=== PATIENT | female | born 1965 | race Caucasian/White ===

== ENCOUNTER 2018-11-27 01:43 | Outpatient (CLI) | payer MEDICAID | END 2018-11-27 01:44 | disposition EMS.NT | LOC: EMS 01:43 | PROVIDERS: ATTEND Surgery | DX: R10.9 Unspecified abdominal pain (principal) ==

== ENCOUNTER 2019-11-15 14:18 | Emergency (ER) | payer MEDICAID ==
[2019-11-15 14:39] VITALS: BP 109/72
--- NOTE | 2019-11-15 15:07 | ED Physician Documentation ---
History of Present Illness - Stated complaint Stated Complaint: FEMALE - Chief complaint Chief Complaint: Abd Pain - History obtained from History obtained from: Patient - History of Present Illness Timing: Other (several months ago) Pain level max: 7 Pain level now: 5 - Additonal information Additional information: states has a known left inguinal hernia. states increasing pain for months. states seen at [place] for the same. No vomiting. no fever. nothing makes it better or worsen. Review of Systems Constitutional: denies: Fever GI: denies: Vomiting, Diarrhea Skin: denies: Rash Musculoskeletal: denies: Neck pain, Back pain Neurologic: denies: Headache PD PAST MEDICAL HISTORY - Past Medical History Past Medical History: No - Past Surgical History Past Surgical History: Yes General: Hiatal hernia repair - Present Medications Home Medications: Ambulatory Orders Medication Instructions Recorded Confirmed Meloxicam [Mobic] 7.5 mg PO BID PRN #20 tablet 11/15/19 - Allergies Allergies/Adverse Reactions: Allergies Allergy/AdvReac Type Severity Reaction Status Date / Time Penicillins Allergy Anaphylaxis Verified 11/15/19 14:39 - Social History Does the pt smoke?: Yes Smoking Status: Current every day smoker Does the pt drink ETOH?: No Does the pt have substance abuse?: No - Immunizations Immunizations: TDAP >10years/unknown PD ED PE NORMAL - Vitals Vital signs reviewed: Yes - General General: Alert and oriented X 3, Well developed/nourished, Other (disheveled) - HEENT HEENT: Moist mucous membranes - Neck Neck: Supple, no meningeal sign - Cardiac Cardiac: RRR, Strong equal pulses - Respiratory Respiratory: No respiratory distress, Clear bilaterally - Abdomen Abdomen: Soft, Non tender, Non distended, Other (no palpable hernias) - Derm Derm: Warm and dry - Extremities Extremities: No edema - Neuro Neuro: Alert and oriented X 3 - Psych Psych: Other (anxious, pressured speech) Results - Vitals Vitals: Vital Signs - 24 hr 11/15/19 14:35 Temperature 36.4 C L Heart Rate 84 Respiratory 16 Rate Blood Pressure 109/72 O2 Saturation 98 Oxygen O2 Source Room air PD MEDICAL DECISION MAKING - ED course Complexity details: considered differential, d/w patient ED course: No palpable hernia. Ultrasound was applied, no visible hernia on ultrasound near the area of pain. Abdomen is soft, nontender nondistended. She is well- appearing, nontoxic. Will prescribe meloxicam for home and have her follow-up with her doctor. Patient counseled regarding signs and symptoms for which I believe and urgent re-evaluation would be necessary. Patient with good understanding of and agreement to plan and is comfortable going home at this time This document was made in part using voice recognition software. While efforts are made to proofread this document, sound alike and grammatical errors may occur. Departure - Departure Disposition: 01 Home, Self Care Clinical Impression: Abdominal pain Qualifiers: Abdominal location: unspecified location Qualified Code(s): R10.9 - Unspecified abdominal pain Condition: Good Instructions: ED Abdominal Pain Unkn Cause Follow-Up: your,doctor in 1 week [Other] Prescriptions: Meloxicam [Mobic] 7.5 mg PO BID PRN #20 tablet PRN Reason: Pain Comments: Follow-up with your doctor for further care. Return if you worsen. Discharge Date/Time: 11/15/19 15:10
== END 2019-11-15 15:10 | disposition home or self-care (01) ==
LOC: ED 14:18
DX: R10.9 Unspecified abdominal pain (principal); F17.200 Nicotine dependence, unspecified, uncomplicated
CPT/HCPCS: 99282; 99284

== ENCOUNTER 2021-10-22 09:56 | Emergency (ER) | payer MEDICAID ==
[2021-10-22] MEDS ORDERED: BUFFERED LIDOCAINE 10 ML SYRINGE SUBQ STA (10:51)
--- NOTE | 2021-10-22 11:51 | ED Physician Documentation ---
History of Present Illness - Stated complaint Stated Complaint: L SIDE ABSCESS - Chief complaint Chief Complaint: Wound - History obtained from History obtained from: Patient - History of Present Illness Timing: How many weeks ago (1) - Additonal information Additional information: 56-year-old female with a history of IV drug abuse has a abscess on her left hip where she has been muscling. She has had this happen to her previously she has some scar area of scar tissue to the area she has quite a good sized red lump that is painful. She is not allergic to anything except for penicillin. Review of Systems Constitutional: denies: Fever Respiratory: denies: Cough GI: denies: Vomiting Skin: denies: Rash Musculoskeletal: reports: Extremity pain. 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 : None HEENT: None Psych: None Musculoskeletal: Chronic back pain Derm: Other drug resistant infections - Past Surgical History Past Surgical History: Yes General: Hiatal hernia repair - Present Medications Home Medications: Ambulatory Orders Medication Instructions Recorded Confirmed HYDROcod/ACETAM 5/325 [[place] 5/325] 1 - 2 tablet PO Q6H PRN #14 tablet 10/22/21 Sulfamethox/Trimeth 800/160 1 tablet PO BID 7 Days #14 tablet 10/22/21 [Bactrim Ds] - Allergies Allergies/Adverse Reactions: Allergies Allergy/AdvReac Type Severity Reaction Status Date / Time Penicillins Allergy Anaphylaxis Verified 10/22/21 10:10 - Social History Does the pt smoke?: Yes Smoking Status: Current every day smoker Does the pt drink ETOH?: No Does the pt have substance abuse?: Yes Substance Use and Type: Marijuana, CBD oil / Products - Immunizations Immunizations are current?: Yes Immunizations: TDAP >10years/unknown - POLST Patient has POLST: No PD ED PE NORMAL - Vitals Vital signs reviewed: Yes (Tachycardic) - General General: Alert and oriented X 3, No acute distress, Well developed/nourished - HEENT HEENT: Atraumatic, PERRL, EOMI - Respiratory Respiratory: No respiratory distress - Derm Derm: Normal color, Warm and dry, No rash - Extremities Extremities: Other (There is a 4 cm x 9 cm mass to the left hip that is erythematous raised about 2-1/2 cm off of the skin and fluctuance in the center. The area is tender there is surrounding erythema there is no lymphangitic streaking and no progression of the erythema past the margins of the mass.) - Neuro Neuro: Alert and oriented X 3, bar staff 2-12 intact, No motor deficit, No sensory deficit, Normal speech Eye Opening: Spontaneous Motor: Obeys Commands Verbal: Oriented GCS Score: 15 - Psych Psych: Normal mood, Normal affect Results - Vitals Vitals: Vital Signs - 24 hr 10/22/21 10:09 Temperature 36.6 C Heart Rate 101 H Respiratory 16 Rate Blood Pressure 113/73 O2 Saturation 100 Oxygen O2 Source Room air Procedures - Abscess I&D (location) left hip Preparation: Chlorhexadine, Lidocaine 1% Incision: Incised with scalpel, Purulent drainage, Loculations broken, Irrigated, Packed, Culture obtained Other: Pt tolerated well, Dressing applied, Antibiotic prescribed PD MEDICAL DECISION MAKING - ED course Complexity details: considered differential, d/w patient ED course: 56-year-old female with a large abscess to the left lateral thigh over the trochanter has the mass incised and drained irrigated and packed with gauze. I have asked patient to remove 2 to 3 cm of gauze daily and to follow-up here in 2 to 3 days for a wound recheck. We were able to obtain a wound culture we will place her on some Septra she had improvement in her pain immediately. Departure - Departure Disposition: 01 Home, Self Care Clinical Impression: Abscess Condition: Stable Instructions: ED Abscess IandD Follow-Up: [facility] [place] [Provider Group] Prescriptions: Sulfamethox/Trimeth 800/160 [Bactrim Ds] 1 tablet PO BID 7 Days #14 tablet HYDROcod/ACETAM 5/325 [[place] 5/325] 1 - 2 tablet PO Q6H PRN #14 tablet PRN Reason: Pain Comments: Jackelyn, today it looks like you have a large abscess and this has been incised and drained there is packing material in the wound. The recommendation is to remove an inch or so of packing daily and to follow-up with us in 2 to 3 days for a wound recheck. Take the antibiotic as prescribed and expect daily improvement. Your prescriptions have been E scribed to [facility] in [place].
[2021-10-22 12:18] VITALS: BP 123/70
== END 2021-10-22 12:18 | disposition home or self-care (01) ==
LOC: ED 09:56
DX: L02.416 Cutaneous abscess of left lower limb (principal); F17.200 Nicotine dependence, unspecified, uncomplicated; Z88.0 Allergy status to penicillin
CPT/HCPCS: 10061; 87070; 87205

== ENCOUNTER 2022-04-30 18:23 | Emergency (ER) | payer MEDICAID ==
[2022-04-30 18:29] VITALS: BP 123/69
[2022-04-30] MEDS ORDERED: HYDROcod/ACET 5/325 Prepack 4 PO STA (18:40)
[2022-04-30] MEDS ORDERED: SULFAMETH/TRIMETH DS 800/160 MG TABLET PO STA (18:40)
--- NOTE | 2022-04-30 18:42 | ED Physician Documentation ---
PD HPI SKIN - Stated complaint Stated Complaint: LEFT HAND WOUND - Chief complaint Chief Complaint: Wound - History obtained from History obtained from: Patient - Additional information Additional information: 56-year-old woman with history of COPD and tobacco abuse, otherwise healthy presents with lesions on the left hand and left foot starting yesterday. She does have a history of MRSA. Lesion on the left foot is especially painful. No fevers. 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 HEENT: None Psych: None Musculoskeletal: Chronic back pain Derm: Other drug resistant infections - Past Surgical History Past Surgical History: Yes General: Hiatal hernia repair - Present Medications Home Medications: Ambulatory Orders Medication Instructions Recorded Confirmed HYDROcod/ACETAM 5/325 [[place] 5/325] 1 - 2 tablet PO Q6H PRN #14 tablet 10/22/21 Sulfamethox/Trimeth 800/160 1 tablet PO BID 7 Days #14 tablet 10/22/21 [Bactrim Ds] HYDROcod/ACETAM 5/325 [[place] 5/325] 1 - 2 tab PO Q6H PRN #10 tablet 04/30/22 Sulfamethox/Trimeth 800/160 1 each PO BID #14 tablet 04/30/22 [Bactrim Ds 800/160] - Allergies Allergies/Adverse Reactions: Allergies Allergy/AdvReac Type Severity Reaction Status Date / Time Penicillins Allergy Anaphylaxis Verified 04/30/22 18:29 - Social History Does the pt smoke?: Yes Smoking Status: Current every day smoker Does the pt drink ETOH?: No Does the pt have substance abuse?: Yes - Immunizations Immunizations are current?: Yes Immunizations: TDAP >10years/unknown - POLST Patient has POLST: No PD ED PE NORMAL - Vitals Vital signs reviewed: Yes - General General: Alert and oriented X 3, No acute distress - Extremities Extremities: Other (On the dorsum of the left hand over the second MCP there is a purulent blister that was cultured and sent for exam with very mild surrounding cellulitis. Full range of motion. There is sort of a denuded impetiginous ulcer over the dorsum of the left second toe with mild surrounding cellulitis as w) - Neuro Neuro: Alert and oriented X 3, Normal speech - Psych Psych: Normal mood, Normal affect Results - Vitals Vitals: Vital Signs - 24 hr 04/30/22 18:27 Temperature 36.7 C Heart Rate 93 Respiratory 16 Rate Blood Pressure 123/69 O2 Saturation 100 Oxygen O2 Source Room air - Labs Labs: Microbiology 04/30/22 18:40 Wound Culture - Preliminary Hand - Left PD MEDICAL DECISION MAKING - ED course ED course: 56-year-old woman presents with what looks like a staph infection on the left hand and left foot. A culture was obtained and she is started on Bactrim given her history of MRSA pending culture. Departure - Departure Disposition: 01 Home, Self Care Clinical Impression: Cellulitis Condition: Good Record reviewed to determine appropriate education?: Yes Instructions: ED Staph Infec Abx Tx Only Prescriptions: Sulfamethox/Trimeth 800/160 [Bactrim Ds 800/160] 1 each PO BID #14 tablet HYDROcod/ACETAM 5/325 [[place] 5/325] 1 - 2 tab PO Q6H PRN #10 tablet PRN Reason: Pain Comments: I sent your prescription electronically to [facility] in [place]. We are performing a wound culture, the results should be done in 48-72 hours. If antibiotic change is necessary we will call you. Return if worse in the meantime, especially if you develop increased pain, fevers, cannot keep down the medication. Otherwise follow-up with your physician in approximately 2-3 days. I am prescribing a short course of narcotic pain medication for you. These are potentially dangerous and addictive medications that should be used carefully. These medications may constipate you. Take an tnsl-tie-jqlqujo stool softener (docusate) twice daily with plenty of water while taking these medications. If you go 24 hours without a bowel movement, take [id number]-iykfgll miralax, per package instructions. Do not drink or drive while taking these medications. If you received narcotic or sedating medications while in the emergency department, do not drive for 24 hours. Store this medication in a safe, secure place and out of reach of children. It is a violation of federal law to give or sell this medication to another person or to use in a manner other than prescribed. The ED will not refill narcotic prescriptions, including prescriptions lost or stolen. To dispose of unwanted medications: 1. [facility] at [address] in [place] has a medication drop box. They accept prescription medications (in pill form) Sunday through Sunday 9:00 a.m. to 5:00 p.m. 2. [facility] accepts prescription medications (in pill form only) for disposal year round. Call for more information. 3. Contact the [facility] for the next [facility] sponsored prescription drug collection event. , [phone], or [phone]; Note that many narcotic pain relievers also contain Tylenol/acetaminophen. Please ensure that your total dose of acetaminophen from all sources does not exceed 3 g (3000 mg) per day. Discharge Date/Time: 04/30/22 18:50
== END 2022-04-30 18:50 | disposition home or self-care (01) ==
LOC: ED 18:23
DX: L03.114 Cellulitis of left upper limb (principal); L03.116 Cellulitis of left lower limb; F17.200 Nicotine dependence, unspecified, uncomplicated
CPT/HCPCS: 87070; 87077; 87205; 99282; 99283; A9270

== ENCOUNTER 2022-06-12 22:37 | Emergency (ER) | payer MEDICAID ==
--- NOTE | 2022-06-12 23:10 | ED Physician Documentation ---
PD HPI LOWER EXT INJURY - Stated complaint Stated Complaint: LEG SORES - Chief complaint Chief Complaint: Wound - History obtained from History obtained from: Patient - History of Present Illness PD HPI LOW EXT INJURY LOCATION: Right, Both Type of injury: Other (unknown) Similar symptoms before: Diagnosis - Additional information Additional information: 56yoF with PMH COPD, previous hx MRSA Presents for 4 days of gradually worsening wounds on her bilateral lower extremity. States this is consistent with MRSA infection for her. States that wounds appeared suddenly 4 days ago and have been progressive since onset. Has not seen a primary care physician for this complaint. Patient is also endorsing 1 day of shortness of breath. Patient has documented hx of COPD but denies that medical history. Current everyday smoker. No recent antibiotics in last 30 days. Denies fevers, chest pain, nausea, vomiting, other complaints at this time. Review of Systems Ten Systems: 10 systems reviewed and negative Cardiac: denies: Chest pain / pressure Respiratory: reports: Dyspnea. denies: Cough, Wheezing Skin: reports: Lesions. 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 HEENT: None Psych: None Musculoskeletal: Chronic back pain Derm: Other drug resistant infections - Past Surgical History Past Surgical History: Yes General: Hiatal hernia repair - Present Medications Home Medications: Ambulatory Orders Medication Instructions Recorded Confirmed HYDROcod/ACETAM 5/325 [[place] 5/325] 1 - 2 tablet PO Q6H PRN #14 tablet 10/22/21 Sulfamethox/Trimeth 800/160 1 tablet PO BID 7 Days #14 tablet 10/22/21 [Bactrim Ds] HYDROcod/ACETAM 5/325 [[place] 5/325] 1 - 2 tab PO Q6H PRN #10 tablet 04/30/22 Sulfamethox/Trimeth 800/160 1 each PO BID #14 tablet 04/30/22 [Bactrim Ds 800/160] Albuterol Sulf [Ventolin Hfa 1 - 2 puffs INH Q4HR PRN #1 gm 06/13/22 Inhaler] Doxycycline Hyclate 100 mg PO BID #14 tab.sr 06/13/22 - Allergies Allergies/Adverse Reactions: Allergies Allergy/AdvReac Type Severity Reaction Status Date / Time Penicillins Allergy Anaphylaxis Verified 06/12/22 22:43 - Social History Does the pt smoke?: Yes Smoking Status: Current every day smoker Does the pt drink ETOH?: No Does the pt have substance abuse?: Yes - Immunizations Immunizations are current?: Yes Immunizations: TDAP >10years/unknown - POLST Patient has POLST: No PD ED PE NORMAL - Vitals Vital signs reviewed: Yes - General General: Alert and oriented X 3, No acute distress, Well developed/nourished, Other (hygiene poor) - HEENT HEENT: Atraumatic, EOMI, Ears normal - Neck Neck: Supple, no meningeal sign, No bony TTP, C-Spine cleared by NEXUS criteria - Cardiac Cardiac: RRR, No gallop, Strong equal pulses - Respiratory Respiratory: No respiratory distress, Clear bilaterally, Other (diminished breath sounds all lung early, speaking complete sentences without difficulty) - Abdomen Abdomen: Soft, Non tender, Non distended - Back Back: No CVA TTP, No spinal TTP - Derm Derm: Normal color, Warm and dry, Other (2x2cm areas of induration on bilateral lateral thighs. No fluctuance, no surrounding erythema) - Extremities Extremities: No tenderness to palpate, Normal ROM s pain, No edema - Neuro Neuro: Alert and oriented X 3, carpenter packing 2-12 intact, No motor deficit, No sensory deficit, Normal speech - Psych Psych: Normal mood, Normal affect PD ED PE EXPANDED - Extremities LORI LE visual: 1 - swelling 2 - swelling Results - Vitals Vitals: Vital Signs - 24 hr 06/12/22 06/13/22 22:43 01:29 Temperature 36.5 C 36.6 C Heart Rate 84 72 Respiratory 18 18 Rate Blood Pressure 132/83 H 122/72 O2 Saturation 99 96 Oxygen O2 Source Room air - Labs Labs: Laboratory Tests 06/12/22 06/12/22 06/12/22 23:27 23:27 23:27 WBC 6.6 RBC 3.82 L Hgb 11.0 L Hct 33.5 L MCV 87.7 MCH 28.8 MCHC 32.8 RDW 13.9 Plt Count 346 MPV 8.7 Neut # (Auto) 4.3 Lymph # (Auto) 1.2 L [place] # (Auto) 0.8 Eos # (Auto) 0.3 Baso # (Auto) 0.0 Absolute Nucleated RBC 0.00 Nucleated RBC % 0.0 Sodium 134 L Potassium 3.7 Chloride 97 L Carbon Dioxide 30 Anion Gap 7.0 BUN 6 Creatinine 0.6 Estimated GFR (MDRD) 103 Glucose 114 H Calcium 9.0 Total Bilirubin 0.3 AST 14 ALT 12 Alkaline Phosphatase 85 Troponin I High Sens 2.8 B-Natriuretic Peptide Total Protein 7.2 Albumin 3.1 L Globulin 4.1 Albumin/Globulin Ratio 0.8 L 06/12/22 23:27 WBC RBC Hgb Hct MCV MCH MCHC RDW Plt Count MPV Neut # (Auto) Lymph # (Auto) [place] # (Auto) Eos # (Auto) Baso # (Auto) Absolute Nucleated RBC Nucleated RBC % Sodium Potassium Chloride Carbon Dioxide Anion Gap BUN Creatinine Estimated GFR (MDRD) Glucose Calcium Total Bilirubin AST ALT Alkaline Phosphatase Troponin I High Sens B-Natriuretic Peptide 84 Total Protein Albumin Globulin Albumin/Globulin Ratio PD MEDICAL DECISION MAKING - ED course Complexity details: reviewed old records, reviewed results, re-evaluated patient, considered differential, d/w patient ED course: 4 days of gradually worsening swelling on lower extremities consistent with patient's previous history of MRSA. No recent antibiotic use. Wounds are indurated, there is no fluctuance to suggest drainable mass. Will obtain chest x-ray and laboratory work given patient's history of shortness of breath. Labs unremarkable, however abnormal finding on patient's chest x-ray not seen on previous. Will obtain CT for assessment since patient states she does not have a primary care physician at this time. CT shows severe emphysema, parenchymal scarring without evidence of pneumonia. Patient given albuterol nebulizer for home use, will discharge patient on doxycycline for presumed MRSA infection. Patient was counseled on the importance of tobacco cessation and following with a primary care physician. Departure - Departure Disposition: 01 Home, Self Care Clinical Impression: Cellulitis Qualifiers: Site of cellulitis: extremity Site of cellulitis of extremity: lower extremity Laterality: unspecified laterality Qualified Code(s): L03.119 - Cellulitis of unspecified part of limb COPD (chronic obstructive pulmonary disease) Qualifiers: COPD type: emphysema Emphysema type: panlobular Qualified Code(s): J43.1 - Panlobular emphysema Emphysema lung Qualifiers: Emphysema type: panlobular Qualified Code(s): J43.1 - Panlobular emphysema Condition: Stable Instructions: Tips Cardiovascular Quit Smoking, Cellulitis Dc, Emphysema Dc, ED Staph Infec Abx Tx Only Prescriptions: Albuterol Sulf [Ventolin Hfa Inhaler] 1 - 2 puffs INH Q4HR PRN #1 gm PRN Reason: Shortness Of Air/Wheezing Doxycycline Hyclate 100 mg PO BID #14 tab.sr Discharge Date/Time: 06/13/22 01:35
[2022-06-12 23:39] LABS: BASOPHILS % (AUTO) 0.5 %; EOSINOPHILS # (AUTO) 0.3 10^3/uL (0.0-0.7); EOSINOPHILS % (AUTO) 4.8 %; HCT - HEMATOCRIT 33.5 % (37.0-47.0); LYMPHOCYTES # (AUTO) 1.2 10^3/uL (1.5-3.5); LYMPHOCYTES % (AUTO) 18.1 %; MEAN CORPUSCULAR HEMOGLOBIN 28.8 pg (27.0-31.0); MEAN CORPUSCULAR HGB CONC 32.8 g/dL (32.0-36.0); MEAN CORPUSCULAR VOLUME 87.7 fL (81.0-99.0); MEAN PLATELET VOLUME 8.7 fL (7.9-10.8); MONOCYTES # (AUTO) 0.8 10^3/uL (0.0-1.0); MONOCYTES % (AUTO) 12.1 %; NEUTROPHILS # (AUTO) 4.3 10^3/uL (1.5-6.6); NEUTROPHILS % (AUTO) 64.3 %; PLT - PLATELET COUNT 346 10^3/uL (130-450); RED BLOOD COUNT 3.82 10^6/uL (4.20-5.40); RED CELL DISTRIBUTION WIDTH 13.9 % (12.0-15.0); WHITE BLOOD COUNT 6.6 x10^3/uL (4.8-10.8)
[2022-06-12 23:48] LABS: ALBUMIN 3.1 g/dL (3.2-5.5); ALBUMIN/GLOBULIN RATIO 0.8 (1.0-2.2); BILIRUBIN,TOTAL 0.3 mg/dL (0.2-1.0); CREATININE 0.6 mg/dL (0.4-1.0); POTASSIUM 3.7 mmol/L (3.5-5.0); TOTAL PROTEIN 7.2 g/dL (6.7-8.2)
--- NOTE | 2022-06-13 00:32 | XRAY Report ---
PROCEDURE: Chest 1 View X-Ray INDICATIONS: Dyspnea x1 day TECHNIQUE: One view of the chest was acquired. COMPARISON: None. FINDINGS: Findings of severe bullous emphysema and COPD. Asymmetric opacity in the medial right lung apex. Norm al heart size. IMPRESSION: Findings of COPD and severe bullous emphysematous change. Asymmetric opacity in the medial right lung apex is suspicious for possible infection or neoplasm versus pleural-parenchymal scarring. Reviewed by: Jorden Truong MD on 06/13/2022 12:30 AM PDT Approved by: Jorden Truong MD on 06/13/2022 12:30 AM PDT Station ID: [id number]
--- NOTE | 2022-06-13 01:14 | CT Report ---
PROCEDURE: CHEST WO INDICATIONS: ABNORMAL R CXR TECHNIQUE: Noncontrast 1mm axial images were acquired from the pulmonary apices to the posterior costophrenic an gles. Axial 5 mm soft tissue kernel reconstructions were performed as well as 8 mm axial MIP and cor onal and sagittal 5 mm reformations. For radiation dose reduction, the following was used: automate d exposure control, adjustment of mA and/or kV according to patient size. COMPARISON: Same day chest radiograph FINDINGS: Medial right apical opacity seen on the previous examination is consistent with pleural-parenchymal s carring. Severe bullous emphysematous changes. No acute or suspicious air space opacity identified. N o pleural effusion or pneumothorax. Normal heart size. No pericardial effusion. Normal caliber thorac ic aorta and main pulmonary trunk. No thoracic lymphadenopathy. No acute finding in the unenhanced up per abdomen. IMPRESSION: Medial right apical airspace opacity seen on prior chest radiograph is consistent with pleural-parenc hymal scarring. Reviewed by: Jorden Truong MD on 06/13/2022 1:12 AM PDT Approved by: Jorden Truong MD on 06/13/2022 1:12 AM PDT Station ID: [id number]
[2022-06-13 01:31] VITALS: BP 122/72
== END 2022-06-13 01:35 | disposition home or self-care (01) ==
LOC: ED 22:37
DX: L03.119 Cellulitis of unspecified part of limb (principal); J43.1 Panlobular emphysema; F17.200 Nicotine dependence, unspecified, uncomplicated
CPT/HCPCS: 36415; 80053; 83880; 84484; 85025; 93005; 99284

== ENCOUNTER 2022-07-18 18:19 | Emergency (ER) | payer MEDICAID ==
[2022-07-18 18:47] VITALS: BP 126/85
[2022-07-18 19:21] LABS: BASOPHILS % (AUTO) 0.3 %; EOSINOPHILS # (AUTO) 0.3 10^3/uL (0.0-0.7); EOSINOPHILS % (AUTO) 4.3 %; HCT - HEMATOCRIT 34.2 % (37.0-47.0); HGB - HEMOGLOBIN 11.7 g/dL (12.0-16.0); LYMPHOCYTES # (AUTO) 1.9 10^3/uL (1.5-3.5); LYMPHOCYTES % (AUTO) 27.8 %; MEAN CORPUSCULAR HEMOGLOBIN 29.2 pg (27.0-31.0); MEAN CORPUSCULAR HGB CONC 34.2 g/dL (32.0-36.0); MEAN CORPUSCULAR VOLUME 85.3 fL (81.0-99.0); MEAN PLATELET VOLUME 8.9 fL (7.9-10.8); MONOCYTES # (AUTO) 0.9 10^3/uL (0.0-1.0); MONOCYTES % (AUTO) 13.4 %; NEUTROPHILS # (AUTO) 3.7 10^3/uL (1.5-6.6); NEUTROPHILS % (AUTO) 54.1 %; PLT - PLATELET COUNT 342 10^3/uL (130-450); RED BLOOD COUNT 4.01 10^6/uL (4.20-5.40); RED CELL DISTRIBUTION WIDTH 13.3 % (12.0-15.0); WHITE BLOOD COUNT 6.9 x10^3/uL (4.8-10.8)
[2022-07-18 19:29] LABS: ALBUMIN 3.4 g/dL (3.2-5.5); ALBUMIN/GLOBULIN RATIO 0.7 (1.0-2.2); BILIRUBIN,TOTAL 0.4 mg/dL (0.2-1.0); CALCIUM 9.1 mg/dL (8.5-10.3); CREATININE 0.6 mg/dL (0.4-1.0); POTASSIUM 3.3 mmol/L (3.5-5.0)
--- NOTE | 2022-07-18 20:03 | XRAY Report ---
PROCEDURE: Chest 1 View X-Ray INDICATIONS: congestion TECHNIQUE: One view of the chest was acquired. COMPARISON: 06/12/2022 FINDINGS: Surgical changes and devices: None. Lungs and pleura: Hyperinflation and chronic interstitial changes with the pulmonary scarring the le ft Mediastinum: Mediastinal contours appear normal. Heart size is normal. Bones and chest wall: No suspicious bony lesions. Overlying soft tissues appear unremarkable. IMPRESSION: No acute findings. Hyperinflation, chronic interstitial changes and scarring, stable from the prior Reviewed by: Oral Mcdonald MD on 07/18/2022 7:02 PM AKLUCY Approved by: Oral Mcdonald MD on 07/18/2022 7:02 PM AKDT Station ID: [id number]
== END 2022-07-18 20:06 | disposition left against medical advice (07) ==
LOC: ED 18:19
DX: Z53.21 Procedure and treatment not carried out due to patient leaving prior to being seen by health care provider (principal)
CPT/HCPCS: 36415; 80053; 85025

== ENCOUNTER 2023-07-04 22:01 | Emergency (ER) | payer MEDICAID ==
[2023-07-04] MEDS ORDERED: HYDROmorphone 1 MG/ML CARPUJECT IM STA (22:20)
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
--- NOTE | 2023-07-04 23:46 | XRAY Report ---
PROCEDURE: Hip w/Pelvis 2-3V LT INDICATIONS: hip inj TECHNIQUE: AP pelvis with lateral view of the left hip acquired. COMPARISON: None. FINDINGS: Bones: No displaced fractures or dislocations. No suspicious bony lesions. Soft tissues: No suspicious soft tissue calcifications or masses. IMPRESSION: 1. No displaced fracture or dislocation. If clinical concern persists, consider further evaluation with CT. Reviewed by: Roman Bartlett MD on 07/04/2023 11:45 PM PDT Approved by: Roman Bartlett MD on 07/04/2023 11:45 PM PDT Station ID: [id number]
[2023-07-05 01:10] VITALS: BP 133/74; O2SAT 94
[2023-07-05] MEDS ORDERED: HYDROcod/ACET 5/325 Prepack 4 PO ONE (02:17)
--- NOTE | 2023-07-05 04:08 | CT Report ---
PROCEDURE: LOWER EXTREMITY WO - LT INDICATIONS: HIP INJ, NEG XR TECHNIQUE: Noncontrast 3-mm axial sections acquired from the distal tibial shaft to the talar dome, with coronal and sagittal reformats. For radiation dose reduction, the following was used: automated exposure c ontrol, adjustment of mA and/or kV according to patient size. COMPARISON: Concurrent x-ray of the left hip. FINDINGS: Image quality: Excellent. Bones: There is a comminuted nondisplaced fracture of the left greater trochanter. No femoral neck f racture. No dislocation. Visualized bony pelvis appears intact. Soft tissues: There is mild particular soft tissue swelling and edema adjacent to the greater trocha nter. No suspicious soft tissue calcifications. The visualized musculature appears preserved. Impression: 1. Comminuted nondisplaced fracture of the left greater trochanter. Reviewed by: Roman Woody MD on 07/05/2023 1:52 AM PDT Approved by: Roman Woody MD on 07/05/2023 1:52 AM PDT Station ID: [id number]
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
== END 2023-07-05 02:25 | disposition home or self-care (01) ==
LOC: ED 22:01
DX: S70.02XA Contusion of left hip, initial encounter (principal); S72.115A Nondisplaced fracture of greater trochanter of left femur, initial encounter for closed fracture; V00.831A Fall from motorized mobility scooter, initial encounter; Y93.I9 Activity, other involving external motion; F17.200 Nicotine dependence, unspecified, uncomplicated
CPT/HCPCS: 73502; 73700; 96372; 99283; 99284; J1170

== ENCOUNTER 2023-07-17 10:02 | Emergency (ER) | payer MEDICAID ==
[2023-07-17] MEDS ORDERED: IPRATROPIUM/ALBUTEROL 3 ML NEB INH STA ×2 (10:42→11:58)
[2023-07-17] MEDS ORDERED: predniSONE 20 MG TABLET PO STA (10:43)
[2023-07-17 11:06] LABS: BASOPHILS % (AUTO) 0.3 %; EOSINOPHILS # (AUTO) 0.1 10^3/uL (0.0-0.7); EOSINOPHILS % (AUTO) 1.3 %; HCT - HEMATOCRIT 45.9 % (37.0-47.0); HGB - HEMOGLOBIN 15.1 g/dL (12.0-16.0); LYMPHOCYTES # (AUTO) 1.2 10^3/uL (1.5-3.5); LYMPHOCYTES % (AUTO) 12.2 %; MEAN CORPUSCULAR HEMOGLOBIN 29.8 pg (27.0-31.0); MEAN CORPUSCULAR HGB CONC 32.9 g/dL (32.0-36.0); MEAN CORPUSCULAR VOLUME 90.5 fL (81.0-99.0); MONOCYTES # (AUTO) 1.3 10^3/uL (0.0-1.0); MONOCYTES % (AUTO) 12.8 %; NEUTROPHILS # (AUTO) 7.2 10^3/uL (1.5-6.6); NEUTROPHILS % (AUTO) 73.1 %; PLT - PLATELET COUNT 339 10^3/uL (130-450); RED BLOOD COUNT 5.07 10^6/uL (4.20-5.40); RED CELL DISTRIBUTION WIDTH 12.7 % (12.0-15.0); WHITE BLOOD COUNT 9.9 x10^3/uL (4.8-10.8)
[2023-07-17 11:19] LABS: B. PARAPERTUSSIS- RESP PCR PAN NOT DETECTED; B. PERTUSSIS- RESP PCR PANEL NOT DETECTED; C. PNEUMONIAE- RESP PCR PANEL NOT DETECTED; CORONAVIRUS 229E-RESP PCR NOT DETECTED; CORONAVIRUS HKU1-RESP PCR NOT DETECTED; CORONAVIRUS NL63-RESP PCR NOT DETECTED; CORONAVIRUS OC43-RESP PCR NOT DETECTED; HUMAN METAPNEUMOVIRUS NOT DETECTED; INFLUENZA A- RESP PCR PANEL NOT DETECTED; INFLUENZA B - RESP PCR PANEL NOT DETECTED; M. PNEUMONIAE- RESP PCR PANEL NOT DETECTED; PARAINFLUENZA VIRUS 1 NOT DETECTED; PARAINFLUENZA VIRUS 2 NOT DETECTED; PARAINFLUENZA VIRUS 3 NOT DETECTED; PARAINFLUENZA VIRUS 4 NOT DETECTED; RHINOVIRUS/ENTEROVIRUS DETECTED; RSV- RESP PCR PANEL NOT DETECTED; SARS-CoV-2 -RESP PCR PANEL NOT DETECTED
[2023-07-17 11:20] LABS: ALBUMIN 4.2 g/dL (3.2-5.5); BILIRUBIN,TOTAL 0.5 mg/dL (0.2-1.0); CREATININE 0.6 mg/dL (0.6-1.3); POTASSIUM 3.8 mmol/L (3.5-4.5); TOTAL PROTEIN 8.3 g/dL (6.4-8.9)
--- NOTE | 2023-07-17 11:39 | XRAY Report ---
PROCEDURE: Chest 2 View X-Ray INDICATIONS: cough TECHNIQUE: 2 views of the chest were acquired. COMPARISON: 07/18/2022, CT chest dated 06/13/2022 FINDINGS: Surgical changes and devices: None. Lungs and pleura: Advanced biapical emphysematous change. Chronic mid and lower lung field interstit ial changes with chronic currently B-lines. No pleural effusions or pneumothorax. Lungs are clear. Mediastinum: Mediastinal contours appear normal. Heart size is normal. Bones and chest wall: No suspicious bony lesions. Overlying soft tissues appear unremarkable. IMPRESSION: Chronic findings including advanced emphysematous change and chronic interstitial changes. No superim posed acute pulmonary process. Reviewed by: Tree Sherman MD on 07/17/2023 11:37 AM PDT Approved by: Tree Sherman MD on 07/17/2023 11:37 AM PDT Station ID: [id number]
[2023-07-17] MEDS ORDERED: AZITHROMYCIN 250 MG TABLET PO STA (12:36)
--- NOTE | 2023-07-17 12:38 | ED Physician Documentation ---
History of Present Illness - Stated complaint Stated Complaint: CONGESTION,COUGH,SOA,GEN WEAKNESS - Chief complaint Chief Complaint: General - History obtained from History obtained from: Patient - Additonal information Additional information: Patient is a 57-year-old female with a history of COPD, smokes approximately 3 to 4 cigarettes a day, presenting for evaluation of URI symptoms for the past 1 week with cough, congestion and feeling short of air. She has inhalers at home which have not been helping. Her cough is productive of green sputum. She denies hemoptysis. Denies leg pain or swelling. No reported fevers. No known sick contacts or recent travel. She has not recently been hospitalized on steroids but has been hospitalized in the past for COPD. 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 : None HEENT: None Psych: None Musculoskeletal: Chronic back pain Derm: Other drug resistant infections - Past Surgical History Past Surgical History: Yes General: Hiatal hernia repair - Present Medications Home Medications: Ambulatory Orders Medication Instructions Recorded Confirmed Azithromycin [Zithromax] 1 tab PO DAILY #4 tab 07/17/23 predniSONE [Deltasone] 60 mg PO DAILY 4 Days #12 tablet 07/17/23 - Allergies Allergies/Adverse Reactions: Allergies Allergy/AdvReac Type Severity Reaction Status Date / Time Penicillins Allergy Anaphylaxis Verified 07/17/23 10:08 - Social History Does the pt smoke?: Yes Smoking Status: Current every day smoker Does the pt drink ETOH?: No Does the pt have substance abuse?: Yes - Immunizations Immunizations are current?: Yes Immunizations: TDAP >10years/unknown - POLST Patient has POLST: No PD ED PE NORMAL - General General: Alert and oriented X 3, No acute distress, Other (Thin, frail- appearing) - HEENT HEENT: Atraumatic, Moist mucous membranes, Pharynx benign - Neck Neck: Supple, no meningeal sign - Cardiac Cardiac: RRR, No murmur - Respiratory Respiratory: No respiratory distress, Other (Rhonchi, diffuse wheezing) - Abdomen Abdomen: Soft, Non tender - Derm Derm: Warm and dry - Extremities Extremities: No edema, No calf tenderness / cord - Neuro Neuro: Normal speech Results - Vitals Vitals: Vital Signs - 24 hr 07/17/23 07/17/23 07/17/23 10:08 10:24 11:02 Temperature 36.6 C Heart Rate 99 92 98 Respiratory 24 28 H 26 H Rate Blood Pressure 146/88 H 166/89 H O2 Saturation 91 L 88 L If not protocol 2 : Oxygen Flow, liters/minute 07/17/23 07/17/23 12:21 12:24 Temperature Heart Rate 90 98 Respiratory 20 26 H Rate Blood Pressure 134/84 H O2 Saturation 90 L If not protocol 2 1 : Oxygen Flow, liters/minute Oxygen O2 Source Nasal cannula Oxygen Flow Rate 2 - Labs Labs: Laboratory Tests 07/17/23 07/17/23 07/17/23 10:20 11:00 11:00 WBC 9.9 RBC 5.07 Hgb 15.1 Hct 45.9 MCV 90.5 MCH 29.8 MCHC 32.9 RDW 12.7 Plt Count 339 MPV 9.0 Neut # (Auto) 7.2 H Lymph # (Auto) 1.2 L Mot[place] # (Auto) 1.3 H Eos # (Auto) 0.1 Baso # (Auto) 0.0 Absolute Nucleated RBC 0.00 Nucleated RBC % 0.0 Sodium 137 Potassium 3.8 Chloride 97 L Carbon Dioxide 33 H Anion Gap 7.0 BUN 8 Creatinine 0.6 Estimated GFR (MDRD) 103 Glucose 138 H Calcium 10.0 Total Bilirubin 0.5 AST 16 ALT 14 Alkaline Phosphatase 123 H Total Protein 8.3 Albumin 4.2 Globulin 4.1 Albumin/Globulin Ratio 1.0 Nasal Adenovirus (PCR) NOT DETECTED Nasal B. parapertussis DNA (PCR) NOT DETECTED Nasal Coronavir 229E PCR NOT DETECTED Nasal Coronavir HKU1 PCR NOT DETECTED Nasal Coronavir NL63 PCR NOT DETECTED Nasal Coronavir OC43 PCR NOT DETECTED Nasal Enterovir/Rhinovir PCR DETECTED A Nasal Influenza B PCR NOT DETECTED Nasal Influenza A PCR NOT DETECTED Nasal Parainfluen 1 PCR NOT DETECTED Nasal Parainfluen 2 PCR NOT DETECTED Nasal Parainfluen 3 PCR NOT DETECTED Nasal Parainfluen 4 PCR NOT DETECTED Nasal RSV (PCR) NOT DETECTED Nasal B.pertussis DNA PCR NOT DETECTED Nasal C.pneumoniae (PCR) NOT DETECTED Rory Human Metapneumo PCR NOT DETECTED Nasal M.pneumoniae (PCR) NOT DETECTED Nasal SARS-CoV-2 (PCR) NOT DETECTED PD Medical Decision Making - ED course Complexity details: reviewed results, re-evaluated patient, d/w patient ED course: Patient is a 57-year-old female with a history of COPD presenting for evaluation of feeling short of air. Noted to be saturating 88% on room air upon arrival with mild tachypnea and wheezing. Patient received p.o. steroids, 3 neb treatments, evaluated with labs including CBC, chemistries, chest x-ray and respiratory swab. She is feeling better. Her chest x-ray which I reviewed does not appear to show a focal consolidation. Her respiratory swab is positive for rhinovirus. Patient reports feeling better. Still having some wheezing so I did offer her admission for continued treatment of her COPD and monitoring of her oxygen saturation but patient was adamant about not staying in the hospital and would like to go home. We opted to road test her to see if she would feel well enough to go home. She was able to road test with ambulatory oxygen saturations above 90. She is feeling better and again would not like to stay in the hospital. Discussed treatment plan as well as need for close follow-up. Patient is also advised on strict return precautions. Departure - Departure Disposition: 01 Home, Self Care Clinical Impression: COPD with exacerbation, Rhinovirus Condition: Good Instructions: ED COPD Flare Follow-Up: [facility] [place] [Provider Group] Prescriptions: predniSONE [Deltasone] 60 mg PO DAILY 4 Days #12 tablet Azithromycin [Zithromax] 1 tab PO DAILY #4 tab Comments: You are having a flareup of your COPD which is likely been triggered by a respiratory virus called rhinovirus which causes symptoms of the common cold. I will have you continue using your inhaler. I have also sent prescriptions for a steroid as well as an antibiotic to [facility] in [place].As you are not wanting to stay in the hospital today I would recommend a home pulse ox meter and periodically checking it. If at any time this is below 88% or you feel worse in any way you should return to the emergency department. Forms: PCP List
[2023-07-17 13:32] VITALS: BP 136/92; O2SAT 88
== END 2023-07-17 13:21 | disposition home or self-care (01) ==
LOC: ED 10:02
DX: J44.1 Chronic obstructive pulmonary disease with (acute) exacerbation (principal); B34.8 Other viral infections of unspecified site; F17.210 Nicotine dependence, cigarettes, uncomplicated; Z20.822 Contact with and (suspected) exposure to COVID-19
CPT/HCPCS: 36415; 71046; 80053; 85025; 87633; 94640; 99284; A9270; J7512

== ENCOUNTER 2023-12-15 10:11 | Outpatient (CLI) | payer MEDICAID ==
--- NOTE | 2023-12-15 10:34 | XRAY Report ---
PROCEDURE: Chest 2V INDICATIONS: COUGH/SHORTNESS OF BREATH TECHNIQUE: 2 views of the chest were acquired. COMPARISON: None. FINDINGS: Surgical changes and devices: None. Lungs and pleura: No pleural effusions or pneumothorax. Lungs are clear. Chest x-ray 07/17/2023. L ungs are hyperexpanded with flattening of the hemidiaphragms most suggestive of COPD. Mediastinum: Mediastinal contours appear normal. Heart size is normal. Bones and chest wall: No suspicious bony lesions. Overlying soft tissues appear unremarkable. IMPRESSION: No acute cardiopulmonary process. Reviewed by: Charisse Mane MD on 12/15/2023 10:33 AM [facility] Approved by: Charisse Mane MD on 12/15/2023 10:33 AM [facility] Station ID: [id number]
== END 2023-12-15 23:59 | disposition home or self-care (01) ==
LOC: DI.S 10:11
PROVIDERS: ATTEND Physician Assistant Medical
DX: R06.02 Shortness of breath (principal); R06.2 Wheezing; R09.89 Other specified symptoms and signs involving the circulatory and respiratory systems; F17.200 Nicotine dependence, unspecified, uncomplicated

== ENCOUNTER 2024-02-27 12:04 | Outpatient (CLI) | payer MEDICAID | END 2024-02-27 23:59 | disposition critical access hospital (66) | LOC: EMS 12:04 | DX: R63.0 Anorexia (principal); R10.817 Generalized abdominal tenderness; R53.83 Other fatigue; R11.0 Nausea; F32.A Depression, unspecified; F19.90 Other psychoactive substance use, unspecified, uncomplicated | CPT/HCPCS: A0425; A0429; A0999 ==

== ENCOUNTER 2024-02-27 12:31 | Emergency (ER) | payer MEDICAID ==
--- NOTE | 2024-02-27 12:59 | ED Physician Documentation ---
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 Last used yesterday and is now in withdrawal as "I just could not find any fentanyl." She is not interested in detox or quitting. When I offered social work or detox she said may be some other time. Main complaints are abdominal and leg cramping. 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 : None HEENT: None Psych: None Musculoskeletal: Chronic back pain Derm: Other drug resistant infections - Past Surgical History Past Surgical History: Yes General: Hiatal hernia repair - Present Medications Home Medications: Ambulatory Orders Medication Instructions Recorded Confirmed No Known Home Medications 02/27/24 02/27/24 - Allergies Allergies/Adverse Reactions: Allergies Allergy/AdvReac Type Severity Reaction Status Date / Time Penicillins Allergy Anaphylaxis Verified 02/27/24 14:16 - Social History Does the pt smoke?: Yes Smoking Status: Current every day smoker Does the pt drink ETOH?: No Does the pt have substance abuse?: Yes Substance Use and Type: Other - Immunizations Immunizations are current?: Yes Immunizations: TDAP >10years/unknown - POLST Patient has POLST: No PD ED PE NORMAL - Vitals Vital signs reviewed: Yes - General General: Other (She is uncomfortable and in distress from withdrawal. She is disheveled and thin.) - HEENT HEENT: PERRL, EOMI - Neck Neck: Supple, no meningeal sign, No bony TTP, C-Spine cleared by NEXUS criteria - Cardiac Cardiac: RRR, No murmur - Respiratory Respiratory: Clear bilaterally - Abdomen Abdomen: Normal bowel sounds, Soft, Non tender - Neuro Neuro: Alert and oriented X 3, Normal speech Results - Vitals Vitals: Vital Signs - 24 hr 02/27/24 02/27/24 02/27/24 12:46 15:00 16:03 Temperature 36.7 C 36.7 C Heart Rate 78 54 L 96 Respiratory 30 H 23 20 Rate Blood Pressure 149/93 H 182/89 H 167/93 H O2 Saturation 97 94 99 02/27/24 02/27/24 16:10 18:10 Temperature Heart Rate 91 Respiratory 16 16 Rate Blood Pressure O2 Saturation 94 Oxygen O2 Source Room air - EKG (time done) 1407 EKG releavant findings:: EKG personally interpreted by author of this note. Relevant findings are: Rate: Rate (enter#) (74) Rhythm: NSR, LAE, STACI [place]: Normal Intervals: Normal NH, Prolonged QT QRS: Normal Ischemia: Non specific changes. No: ST elevation c/w ischemia - Labs Labs: Laboratory Tests 02/27/24 02/27/24 02/27/24 13:05 13:05 14:20 WBC 7.0 RBC 5.41 H Hgb 16.4 H Hct 49.8 H MCV 92.1 MCH 30.3 MCHC 32.9 RDW 13.3 Plt Count 362 MPV 9.1 Neut # (Auto) 5.4 Lymph # (Auto) 0.9 L Ray # (Auto) 0.6 Eos # (Auto) 0.1 Baso # (Auto) 0.0 Absolute Nucleated RBC 0.00 Nucleated RBC % 0.0 Sodium 138 Potassium 3.4 L Chloride 99 L Carbon Dioxide 31 Anion Gap 8.0 BUN 8 Creatinine 0.5 L Estimated GFR (MDRD) 127 Glucose 111 H Calcium 10.4 H Magnesium 1.8 Total Bilirubin 0.5 AST 24 ALT 18 Alkaline Phosphatase 88 Total Creatine Kinase 34 Total Protein 7.7 Albumin 4.1 Globulin 3.6 Albumin/Globulin Ratio 1.1 Lipase 26 TSH 0.80 Urine Color Urine Clarity Urine pH Ur Specific [place] Urine Protein Urine Glucose (UA) Urine Ketones Urine Occult Blood Urine Nitrite Urine Bilirubin Urine Urobilinogen Ur Leukocyte Esterase Urine RBC Urine WBC Ur Squamous Epith Cells Amorphous Sediment Urine Bacteria Ur Microscopic Review Urine Culture Comments Nasal Adenovirus (PCR) NOT DETECTED Nasal B. parapertussis DNA (PCR) NOT DETECTED Nasal Coronavir 229E PCR NOT DETECTED Nasal Coronavir HKU1 PCR NOT DETECTED Nasal Coronavir NL63 PCR NOT DETECTED Nasal Coronavir OC43 PCR NOT DETECTED Nasal Enterovir/Rhinovir PCR NOT DETECTED Nasal Influenza B PCR NOT DETECTED Nasal Influenza A PCR NOT DETECTED Nasal Parainfluen 1 PCR NOT DETECTED Nasal Parainfluen 2 PCR NOT DETECTED Nasal Parainfluen 3 PCR NOT DETECTED Nasal Parainfluen 4 PCR NOT DETECTED Nasal RSV (PCR) NOT DETECTED Nasal B.pertussis DNA PCR NOT DETECTED Nasal C.pneumoniae (PCR) NOT DETECTED Rory Human Metapneumo PCR NOT DETECTED Nasal M.pneumoniae (PCR) NOT DETECTED Nasal SARS-CoV-2 (PCR) NOT DETECTED Salicylates < 1.5 Urine Opiates Screen Ur Buprenorphine Scrn Ur Oxycodone Screen Urine Methadone Screen Acetaminophen 0.4 Ur Barbiturates Screen Ur Tricyclics Screen Ur Phencyclidine Scrn Ur Amphetamine Screen U Methamphetamines Scrn U Benzodiazepines Scrn Urine Cocaine Screen U Cannabinoids Screen Ur Drug Screen Comment Ethyl Alcohol < 10.0 02/27/24 02/27/24 14:55 14:55 WBC RBC Hgb Hct MCV MCH MCHC RDW Plt Count MPV Neut # (Auto) Lymph # (Auto) Ray # (Auto) Eos # (Auto) Baso # (Auto) Absolute Nucleated RBC Nucleated RBC % Sodium Potassium Chloride Carbon Dioxide Anion Gap BUN Creatinine Estimated GFR (MDRD) Glucose Calcium Magnesium Total Bilirubin AST ALT Alkaline Phosphatase Total Creatine Kinase Total Protein Albumin Globulin Albumin/Globulin Ratio Lipase TSH Urine Color YELLOW Urine Clarity CLOUDY Urine pH 8.5 H Ur Specific [place] 1.020 Urine Protein NEGATIVE Urine Glucose (UA) NEGATIVE Urine Ketones NEGATIVE Urine Occult Blood NEGATIVE Urine Nitrite NEGATIVE Urine Bilirubin NEGATIVE Urine Urobilinogen 1 (NORMAL) Ur Leukocyte Esterase NEGATIVE Urine RBC None Seen Urine WBC 0-3 Ur Squamous Epith Cells RARE Squamous Amorphous Sediment Moderate Urine Bacteria Rare Ur Microscopic Review INDICATED Urine Culture Comments NOT INDICATED Nasal Adenovirus (PCR) Nasal B. parapertussis DNA (PCR) Nasal Coronavir 229E PCR Nasal Coronavir HKU1 PCR Nasal Coronavir NL63 PCR Nasal Coronavir OC43 PCR Nasal Enterovir/Rhinovir PCR Nasal Influenza B PCR Nasal Influenza A PCR Nasal Parainfluen 1 PCR Nasal Parainfluen 2 PCR Nasal Parainfluen 3 PCR Nasal Parainfluen 4 PCR Nasal RSV (PCR) Nasal B.pertussis DNA PCR Nasal C.pneumoniae (PCR) Rory Human Metapneumo PCR Nasal M.pneumoniae (PCR) Nasal SARS-CoV-2 (PCR) Salicylates Urine Opiates Screen POSITIVE H Ur Buprenorphine Scrn POSITIVE H Ur Oxycodone Screen NEGATIVE Urine Methadone Screen NEGATIVE Acetaminophen Ur Barbiturates Screen NEGATIVE Ur Tricyclics Screen NEGATIVE Ur Phencyclidine Scrn NEGATIVE Ur Amphetamine Screen POSITIVE H U Methamphetamines Scrn POSITIVE H U Benzodiazepines Scrn NEGATIVE Urine Cocaine Screen NEGATIVE U Cannabinoids Screen NEGATIVE Ur Drug Screen Comment CUTOFF CONC BELOW: Ethyl Alcohol PD Medical Decision Making - ED course ED course: 58-year-old woman presents by ambulance for acute narcotic withdrawal. She is uninterested in detox but looks quite disheveled, is malnourished and underweight. She was not interested in talking to social work case manager but given the c ircumstances I feel that she is potentially gravely disabled and asked the social work case manager to see her regardless who agrees and plans to dispatch the DCR. Lab work demonstrates hemoconcentration on CBC versus polycythemia, CMP is relatively unremarkable. Positive drug screens. DCR seeing patient and care to nurse practitioner Rustam at 7 PM pending DCR workup and evaluation. Anticipate they may detain. Departure - Departure Clinical Impression: Polysubstance dependence including opioid type drug with complication, episodic abuse Condition: Stable Record reviewed to determine appropriate education?: Yes Instructions: ED Drug Abuse General Comments: Call your doctor to arrange a follow-up appointment, make the next available appointment. In the interim, return anytime if worse or if new symptoms develop. We think you would benefit from admission for detoxification and/or rehabilitation from alcohol and/or drugs. The closest facility that does this is in [place]. It is: [facility] [address] [address] Call them at [phone] to arrange an intake appointment. Forms: PCP List
[2024-02-27 13:13] LABS: BASOPHILS % (AUTO) 0.6 %; EOSINOPHILS # (AUTO) 0.1 10^3/uL (0.0-0.7); EOSINOPHILS % (AUTO) 0.9 %; HCT - HEMATOCRIT 49.8 % (37.0-47.0); HGB - HEMOGLOBIN 16.4 g/dL (12.0-16.0); LYMPHOCYTES # (AUTO) 0.9 10^3/uL (1.5-3.5); LYMPHOCYTES % (AUTO) 13.1 %; MEAN CORPUSCULAR HEMOGLOBIN 30.3 pg (27.0-31.0); MEAN CORPUSCULAR HGB CONC 32.9 g/dL (32.0-36.0); MEAN CORPUSCULAR VOLUME 92.1 fL (81.0-99.0); MEAN PLATELET VOLUME 9.1 fL (7.9-10.8); MONOCYTES # (AUTO) 0.6 10^3/uL (0.0-1.0); MONOCYTES % (AUTO) 8.9 %; NEUTROPHILS # (AUTO) 5.4 10^3/uL (1.5-6.6); NEUTROPHILS % (AUTO) 76.4 %; PLT - PLATELET COUNT 362 10^3/uL (130-450); RED BLOOD COUNT 5.41 10^6/uL (4.20-5.40); RED CELL DISTRIBUTION WIDTH 13.3 % (12.0-15.0)
[2024-02-27 13:32] LABS: ACETAMINOPHEN 0.4 ug/mL; ALBUMIN 4.1 g/dL (3.2-5.5); ALBUMIN/GLOBULIN RATIO 1.1 (1.0-2.2); ALKALINE PHOSPHATASE 88 IU/L (42-121); ALT ALANINE AMINOTRANSFERASE 18 IU/L (10-60); AST ASPARTATE AMINOTRANSFERASE 24 IU/L (10-42); BILIRUBIN,TOTAL 0.5 mg/dL (0.2-1.0); BUN - BLOOD UREA NITROGEN 8 mg/dL (6-20); CALCIUM 10.4 mg/dL (8.5-10.3); CARBON DIOXIDE - CO2 31 mmol/L (21-32); CHLORIDE 99 mmol/L (101-111); CK- CREATINE KINASE 34 IU/L (30-223); CREATININE 0.5 mg/dL (0.6-1.3); ETOH - ETHANOL < 10.0 mg/dL; GFR - MDRD 127 (>89); GLUCOSE 111 mg/dL (74-104); LIPASE 26 U/L (11-82); MAGNESIUM 1.8 mg/dL (1.7-2.3); POTASSIUM 3.4 mmol/L (3.5-4.5); SODIUM 138 mmol/L (135-145); TOTAL PROTEIN 7.7 g/dL (6.4-8.9)
[2024-02-27 13:34] LABS: SALICYLATE < 1.5 mg/dL
[2024-02-27] MEDS: SODIUM CHLORIDE 0.9% 1,000 ML IV STA (13:58)
[2024-02-27] MEDS: BUPRENORPHINE 0.3 MG/ML VIAL IVP ONE ×2 (13:58→17:58)
[2024-02-27 14:59] LABS: BILIRUBIN,URINE NEGATIVE (NEGATIVE); GLUCOSE, URINE (UA) NEGATIVE (NEGATIVE); KETONES,URINE (UA) NEGATIVE (NEGATIVE); LEUKOCYTE ESTERASE, URINE NEGATIVE (NEGATIVE); NITRITE,URINE NEGATIVE (NEGATIVE); OCCULT BLOOD,URINE NEGATIVE (NEGATIVE); PH,URINE 8.5 PH (5.0-7.5); PROTEIN,URINE NEGATIVE (NEGATIVE); UROBILINOGEN,URINE 1 (NORMAL) E.U./dL (NORMAL)
[2024-02-27 15:07] LABS: CLARITY,URINE CLOUDY (CLEAR)
[2024-02-27 15:08] LABS: AMORPHOUS SEDIMENT,UR Moderate /LPF; BACTERIA,URINE Rare /HPF (None Seen); RBC,URINE None Seen /HPF (0-5); SQUAMOUS EPITHELIAL CELL,UR RARE Squamous (<= Few); WBC,URINE 0-3 /HPF (0-5)
[2024-02-27 15:12] LABS: AMPHETAMINE SCREEN,URINE POSITIVE (NEGATIVE); BARBITURATE SCREEN,UR NEGATIVE (NEGATIVE); BENZODIAZEPINES SCREEN, URINE NEGATIVE (NEGATIVE); BUPRENORPHINE SCREEN, URINE POSITIVE (NEGATIVE); COCAINE SCREEN URINE NEGATIVE (NEGATIVE); METHADONE SCREEN, URINE NEGATIVE (NEGATIVE); METHAMPHETAMINES SCREEN, URINE POSITIVE (NEGATIVE); OPIATE SCREEN, URINE POSITIVE (NEGATIVE); OXYCODONE SCREEN, URINE NEGATIVE (NEGATIVE); THC CANNABINOID SCREEN, URINE NEGATIVE (NEGATIVE); TRICYCLIC ANTIDEPRESSANT,URINE NEGATIVE (NEGATIVE)
[2024-02-27 16:29] LABS: B. PARAPERTUSSIS- RESP PCR PAN NOT DETECTED; B. PERTUSSIS- RESP PCR PANEL NOT DETECTED; C. PNEUMONIAE- RESP PCR PANEL NOT DETECTED; CORONAVIRUS 229E-RESP PCR NOT DETECTED; CORONAVIRUS HKU1-RESP PCR NOT DETECTED; CORONAVIRUS NL63-RESP PCR NOT DETECTED; CORONAVIRUS OC43-RESP PCR NOT DETECTED; HUMAN METAPNEUMOVIRUS NOT DETECTED; INFLUENZA A- RESP PCR PANEL NOT DETECTED; INFLUENZA B - RESP PCR PANEL NOT DETECTED; M. PNEUMONIAE- RESP PCR PANEL NOT DETECTED; PARAINFLUENZA VIRUS 1 NOT DETECTED; PARAINFLUENZA VIRUS 2 NOT DETECTED; PARAINFLUENZA VIRUS 3 NOT DETECTED; PARAINFLUENZA VIRUS 4 NOT DETECTED; RHINOVIRUS/ENTEROVIRUS NOT DETECTED; RSV- RESP PCR PANEL NOT DETECTED; SARS-CoV-2 -RESP PCR PANEL NOT DETECTED
[2024-02-27] MEDS: KETOROLAC 15 MG/ML VIAL IVP STA (17:57)
[2024-02-27] MEDS: LORazepam 2 MG/ML VIAL IVP STA (17:58)
[2024-02-27] MEDS: NICOTINE 21 MG PATCH TOP STA (21:15)
[2024-02-27] MEDS: LORazepam 1 MG TABLET PO STA (21:36)
[2024-02-28] MEDS: LORazepam 2 MG/ML VIAL IVP STA (04:05)
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
[2024-02-28] MEDS: LORazepam 1 MG TABLET PO STA (09:51)
[2024-02-28 13:15] VITALS: BP 151/97; O2SAT 100
== END 2024-02-28 12:46 ==
LOC: EDUNIT# → ED 12:31
DX: F19.20 Other psychoactive substance dependence, uncomplicated (principal); F11.20 Opioid dependence, uncomplicated; F17.200 Nicotine dependence, unspecified, uncomplicated; J44.9 Chronic obstructive pulmonary disease, unspecified
CPT/HCPCS: 36415; 80053; 80143; 80179; 80306; 81001; 82077; 82550; 83690; 83735; 84443; 85025; 87633; 93005; 96361; 96374; 96375; 96376; 99285; A9270; J0592; J2060; J8499; 81003; 87086

== ENCOUNTER 2024-08-02 08:00 | Outpatient (CLI) | payer MEDICAID ==
--- NOTE | 2024-08-03 07:13 | XRAY Report ---
PROCEDURE: Hip w/Pelvis 2-3V RT INDICATIONS: RIGHT HIP OA TECHNIQUE: AP view of the pelvis and lateral view of the right hip COMPARISON: Pelvis and left hip x-ray 07/04/2023 FINDINGS: Diffuse osseous demineralization. No fracture or dislocation. No pelvic ring disruption. Mild lower l umbar, bilateral hip and sacroiliac joint osteoarthritis. IMPRESSION: Mild bilateral hip osteoarthritis. Reviewed by: Fletcher Olivares MD on 08/03/2024 7:12 AM PDT Approved by: Fletcher Olivares MD on 08/03/2024 7:12 AM PDT Station ID: [id number]
== END 2024-08-02 23:59 | disposition home or self-care (01) ==
LOC: DI.S 08:00
PROVIDERS: ATTEND Emergency Medicine
DX: M16.0 Bilateral primary osteoarthritis of hip (principal)

== ENCOUNTER 2025-05-21 13:51 | Inpatient (IN) ==
[2025-05-21] MEDS ORDERED: ONDANSETRON 4 MG/2 ML VIAL IVP PRN (14:24)
[2025-05-21] MEDS ORDERED: PROCHLORPERAZINE 10 MG/2 ML VIAL IVP PRN (14:24)
[2025-05-21] MEDS ORDERED: ONDANSETRON ODT 4 MG TABLET TL PRN (14:24)
--- NOTE | 2025-05-21 15:07 | MISCELLANEOUS PROVIDER NOTE ---
Miscellaneous Provider Note - Note: Patient is being transition to observation status for continuing altered ment ation. I considered ordering a MRI to rule out evolving stroke. With discussion with MRI personnel and nursing staff, MRI is on safe to complete at this time due to patient inability to be coached through MRI and no family available for screening form. Ordered CT head. Patient did not respond to banana bag yesterday. Lab work this morning unremarkable. Patient continues to be alert and oriented x 1, constantly moving, needs assistance from nursing staff with feeding
[2025-05-21] MEDS: SODIUM CHLORIDE FLUSH 0.9% 10 ML SYRINGE IVP SCH (17:15)
[2025-05-22 05:53] LABS: HCT - HEMATOCRIT 41.5 % (37.0-47.0); HGB - HEMOGLOBIN 14.3 g/dL (12.0-16.0); MEAN PLATELET VOLUME 11.0 fL (7.9-10.8); NRBC ABSOLUTE COUNT (AUTO) 0.00 x10^3/uL; NUCLEATED RED BLOOD CELLS AUTO 0.0 /100WBC; PLT - PLATELET COUNT 281 10^3/uL (130-450); RED CELL DISTRIBUTION WIDTH 12.5 % (12.0-15.0)
[2025-05-22 06:12] LABS: BUN - BLOOD UREA NITROGEN 12.0 mg/dL (6-20); CARBON DIOXIDE - CO2 25.0 mmol/L (21-32); CREATININE 0.5 mg/dL (0.6-1.3); GFR - MDRD 126.0 (>89)
[2025-05-22] MEDS: ENOXAPARIN 40 MG/0.4 ML SYRINGE SUBQ SCH (09:51)
--- NOTE | 2025-05-22 11:53 | PROVIDER PROGRESS NOTE ---
Subjective Prog Note Date Prog Note Date: 05/22/25 Subjective Pt reports feeling: No change Current Medications Current Medications Current Medications: Current Medications Generic Name Dose Route Start Last Admin Trade Name Freq PRN Reason Stop Dose Admin Acetaminophen 650 mg 05/21/25 14:24 Acetaminophen 325 Mg Tablet PO Q4HR PRN Pain 1 to 4, or Fever Enoxaparin Sodium 40 mg 05/22/25 09:00 05/22/25 09:51 Enoxaparin 40 Mg/0.4 Ml Syringe SUBQ 40 mg DAILY WEST Administration Olanzapine 5 mg 05/22/25 09:00 05/22/25 09:51 Olanzapine Odt 5 Mg Tablet TL 5 mg DAILY WEST Administration Ondansetron HCl 4 mg 05/21/25 14:24 Ondansetron Odt 4 Mg Tablet TL Q6HR PRN Nausea / Vomiting Ondansetron HCl 4 mg 05/21/25 14:24 Ondansetron 4 Mg/2 Ml Vial IVP Q6HR PRN Nausea / Vomiting Prochlorperazine Edisylate 10 mg 05/21/25 14:24 Prochlorperazine 10 Mg/2 Ml Vial IVP Q6HR PRN Nausea / Vomiting Sodium Chloride 10 ml 05/21/25 14:24 Sodium Chloride Flush 0.9% 10 Ml Syringe IVP PRN PRN NEEDED PER PROVIDER ORDERS Sodium Chloride 10 ml 05/21/25 17:00 05/22/25 09:51 Sodium Chloride Flush 0.9% 10 Ml Syringe IVP 10 ml 0100,0900,1700 WEST Administration Objective Vital Signs/Intake & Output Reviewed Vital Signs: Yes Vital Signs: Vital Signs x48h Temp Pulse Resp BP Pulse Ox 05/22/25 08:36 36.3 C L 102 H 18 143/95 H 96 05/22/25 04:26 36.5 C 90 20 156/97 H 100 Intake & Output: Intake & Output 05/19/25 05/20/25 05/21/25 05/22/25 23:59 23:59 23:59 23:59 Intake Total 420 / 420 120 / 120 Balance 420 / 420 120 / 120 Objective General Appearance: positive No acute distress and Alert Eyes Bilateral: positive Normal inspection ENT: positive ENT inspection nml Neck: positive Nml inspection Respiratory: positive Chest non-tender Cardiovascular: positive Regular rate & rhythm Abdomen: positive Non-tender Back: positive Nml inspection Skin: positive Color nml Extremities: positive Non-tender Neurologic/Psychiatric: positive Disoriented to place and Disoriented to time Lab Results 05/22/25 05:12 05/22/25 05:12 Other Labs: Lab Results x24hrs 05/22/25 Range/Units 05:12 WBC 6.6 (4.8-10.8) x10^3/uL RBC 4.62 (4.20-5.40) 10^6/uL Hgb 14.3 (12.0-16.0) g/dL Hct 41.5 (37.0-47.0) % MCV 89.8 (81.0-99.0) fL MCH 31.0 (27.0-31.0) pg MCHC 34.5 (32.0-36.0) g/dL RDW 12.5 (12.0-15.0) % Plt Count 281 (130-450) 10^3/uL MPV 11.0 H (7.9-10.8) fL Neut # (Auto) 3.8 (1.5-6.6) 10^3/uL Lymph # (Auto) 1.8 (1.5-3.5) 10^3/uL [place] # (Auto) 0.8 (0.0-1.0) 10^3/uL Eos # (Auto) 0.2 (0.0-0.7) 10^3/uL Baso # (Auto) 0.0 (0.0-0.1) 10^3/uL Absolute Nucleated RBC 0.00 x10^3/uL Nucleated RBC % 0.0 /100WBC Sodium 132 L (135-145) mmol/L Potassium 3.9 (3.5-4.5) mmol/L Chloride 99 L (101-111) mmol/L Carbon Dioxide 25 (21-32) mmol/L Anion Gap 8.0 (6-13) BUN 12 (6-20) mg/dL Creatinine 0.5 L (0.6-1.3) mg/dL Estimated GFR (MDRD) 126 (>89) Glucose 98 (74-104) mg/dL Calcium 9.7 (8.5-10.3) mg/dL Assessment/Plan Problem List (1) Altered mental status: Impression: Her altered mentation is secondary to polysubstance abuse UDS on presentation positive for opiates, amphetamine, methamphetamine, cocaine No significant improvement during ER stay, so she is being held here as a extended stay patron from the ER. Social work working on placement 05/21/2025: Last night after time of my note by ordered a banana bag and an MRI brain. No significant improvement from banana bag. Attempting MRI today, suspect patient will not be able to hold still for this. If unable to obtain, may obtain follow-up CT head 05/22/2025: Patient is now in observation status for further workup of her altered mental status. Repeat CT head has been performed, awaiting read. Still attempting to get in touch with family for an MRI screening form. If you are unable to get this done, will discuss with radiology possibility of getting screening x-rays and then performing MRI brain. I would like to get a MRI brain and a psych eval to make absolutely sure that there is no other cause of her altered mentation and it is in fact from her drug use. Qualifiers: Altered mental status type: stupor Qualified Code(s): R40.1 - Stupor (2) Polysubstance abuse: Impression: She presented to the hospital on 05/13/2025, has been off of illicit substances since then
[2025-05-23 07:17] LABS: HCT - HEMATOCRIT 48.7 % (37.0-47.0); HGB - HEMOGLOBIN 16.5 g/dL (12.0-16.0); MEAN PLATELET VOLUME 9.2 fL (7.9-10.8); NRBC ABSOLUTE COUNT (AUTO) 0.00 x10^3/uL; NUCLEATED RED BLOOD CELLS AUTO 0.0 /100WBC; PLT - PLATELET COUNT 377 10^3/uL (130-450); RED CELL DISTRIBUTION WIDTH 12.6 % (12.0-15.0)
[2025-05-23 07:51] LABS: BUN - BLOOD UREA NITROGEN 15.0 mg/dL (6-20); CARBON DIOXIDE - CO2 31.0 mmol/L (21-32); CREATININE 0.6 mg/dL (0.6-1.3); GFR - MDRD 102.0 (>89)
--- NOTE | 2025-05-23 13:03 | PROVIDER PROGRESS NOTE ---
Subjective Prog Note Date Prog Note Date: 05/23/25 Subjective Pt reports feeling: No change Current Medications Current Medications Current Medications: Current Medications Generic Name Dose Route Start Last Admin Trade Name Freq PRN Reason Stop Dose Admin Acetaminophen 650 mg 05/21/25 14:24 Acetaminophen 325 Mg Tablet PO Q4HR PRN Pain 1 to 4, or Fever Diazepam 10 mg 05/23/25 11:01 Diazepam Inj 5 Mg/Ml Syringe IM .ONCE PRN MRI Enoxaparin Sodium 40 mg 05/22/25 09:00 05/23/25 08:42 Enoxaparin 40 Mg/0.4 Ml Syringe SUBQ 40 mg DAILY WEST Administration Olanzapine 5 mg 05/22/25 09:00 05/23/25 08:42 Olanzapine Odt 5 Mg Tablet TL 5 mg DAILY WEST Administration Ondansetron HCl 4 mg 05/21/25 14:24 Ondansetron Odt 4 Mg Tablet TL Q6HR PRN Nausea / Vomiting Ondansetron HCl 4 mg 05/21/25 14:24 Ondansetron 4 Mg/2 Ml Vial IVP Q6HR PRN Nausea / Vomiting Prochlorperazine Edisylate 10 mg 05/21/25 14:24 Prochlorperazine 10 Mg/2 Ml Vial IVP Q6HR PRN Nausea / Vomiting Sodium Chloride 10 ml 05/21/25 14:24 Sodium Chloride Flush 0.9% 10 Ml Syringe IVP PRN PRN NEEDED PER PROVIDER ORDERS Sodium Chloride 10 ml 05/21/25 17:00 05/23/25 08:42 Sodium Chloride Flush 0.9% 10 Ml Syringe IVP 10 ml 0100,0900,1700 WEST Administration Objective Vital Signs/Intake & Output Reviewed Vital Signs: Yes Vital Signs: Vital Signs x48h Temp Pulse Resp BP BP Pulse Ox 05/23/25 07:46 36.4 C L 66 18 135/79 H 97 05/23/25 05:26 36.5 C 67 16 121/83 95 Intake & Output: Intake & Output 05/20/25 05/21/25 05/22/25 05/23/25 23:59 23:59 23:59 23:59 Intake Total 420 / 420 360 / 360 300 / 300 Output Total 4 / 4 Balance 420 / 420 360 / 360 296 / 296 Objective General Appearance: positive No acute distress and Alert Eyes Bilateral: positive Normal inspection ENT: positive ENT inspection nml Neck: positive Nml inspection Respiratory: positive Chest non-tender Cardiovascular: positive Regular rate & rhythm Abdomen: positive Non-tender Back: positive Nml inspection Skin: positive Color nml Extremities: positive Non-tender Neurologic/Psychiatric: positive Disoriented to place and Disoriented to time Lab Results 05/23/25 07:12 05/23/25 07:12 Other Labs: Lab Results x24hrs 05/23/25 Range/Units 07:12 WBC 6.0 (4.8-10.8) x10^3/uL RBC 5.35 (4.20-5.40) 10^6/uL Hgb 16.5 H (12.0-16.0) g/dL Hct 48.7 H (37.0-47.0) % MCV 91.0 (81.0-99.0) fL MCH 30.8 (27.0-31.0) pg MCHC 33.9 (32.0-36.0) g/dL RDW 12.6 (12.0-15.0) % Plt Count 377 (130-450) 10^3/uL MPV 9.2 (7.9-10.8) fL Neut # (Auto) 3.5 (1.5-6.6) 10^3/uL Lymph # (Auto) 1.6 (1.5-3.5) 10^3/uL [place] # (Auto) 0.7 (0.0-1.0) 10^3/uL Eos # (Auto) 0.1 (0.0-0.7) 10^3/uL Baso # (Auto) 0.0 (0.0-0.1) 10^3/uL Absolute Nucleated RBC 0.00 x10^3/uL Nucleated RBC % 0.0 /100WBC Sodium 139 (135-145) mmol/L Potassium 4.2 (3.5-4.5) mmol/L Chloride 100 L (101-111) mmol/L Carbon Dioxide 31 (21-32) mmol/L Anion Gap 8.0 (6-13) BUN 15 (6-20) mg/dL Creatinine 0.6 (0.6-1.3) mg/dL Estimated GFR (MDRD) 102 (>89) Glucose 103 (74-104) mg/dL Calcium 10.3 (8.5-10.3) mg/dL Assessment/Plan Problem List (1) Altered mental status: Impression: Her altered mentation is secondary to polysubstance abuse UDS on presentation positive for opiates, amphetamine, methamphetamine, cocaine No significant improvement during ER stay, so she is being held here as a extended stay patron from the ER. Social work working on placement 05/21/2025: Last night after time of my note by ordered a banana bag and an MRI brain. No significant improvement from banana bag. Attempting MRI today, suspect patient will not be able to hold still for this. If unable to obtain, may obtain follow-up CT head 05/22/2025: Patient is now in observation status for further workup of her altered mental status. Repeat CT head has been performed, awaiting read. Still attempting to get in touch with family for an MRI screening form. If you are unable to get this done, will discuss with radiology possibility of getting screening x-rays and then performing MRI brain. I would like to get a MRI brain and a psych eval to make absolutely sure that there is no other cause of her altered mentation and it is in fact from her drug use. [id number]: Social work has found a new contact number to get in touch with her family. We are working on calling the person who owns the land that her camper is on so they can get in touch with her daughter for MRI screening form. I have ordered an MRI brain without contrast and have ordered 10 mg IM Valium to Keep her calm during MRI Qualifiers: Altered mental status type: stupor Qualified Code(s): R40.1 - Stupor (2) Polysubstance abuse: Impression: She presented to the hospital on 05/13/2025, has been off of illicit substances since then
[2025-05-24 05:45] LABS: HCT - HEMATOCRIT 45.9 % (37.0-47.0); HGB - HEMOGLOBIN 15.5 g/dL (12.0-16.0); MEAN PLATELET VOLUME 9.3 fL (7.9-10.8); NRBC ABSOLUTE COUNT (AUTO) 0.00 x10^3/uL; NUCLEATED RED BLOOD CELLS AUTO 0.0 /100WBC; PLT - PLATELET COUNT 364 10^3/uL (130-450); RED CELL DISTRIBUTION WIDTH 12.7 % (12.0-15.0)
[2025-05-24 06:03] LABS: BUN - BLOOD UREA NITROGEN 20.0 mg/dL (6-20); CARBON DIOXIDE - CO2 30.0 mmol/L (21-32); CREATININE 0.6 mg/dL (0.6-1.3); GFR - MDRD 102.0 (>89)
[2025-05-24] MEDS: DOCUSATE SODIUM 250 MG CAPSULE PO SCH (08:32)
--- NOTE | 2025-05-24 12:11 | PROVIDER PROGRESS NOTE ---
Subjective Prog Note Date Prog Note Date: 05/24/25 Subjective Pt reports feeling: Improved Current Medications Current Medications Current Medications: Current Medications Generic Name Dose Route Start Last Admin Trade Name Freq PRN Reason Stop Dose Admin Acetaminophen 650 mg 05/21/25 14:24 Acetaminophen 325 Mg Tablet PO Q4HR PRN Pain 1 to 4, or Fever Diazepam 10 mg 05/23/25 11:01 Diazepam Inj 5 Mg/Ml Syringe IM .ONCE PRN MRI Docusate Sodium 250 - 500 mg 05/24/25 09:00 05/24/25 08:32 Docusate Sodium 250 Mg Capsule PO 250 mg DAILY [facility]ST Administration Enoxaparin Sodium 40 mg 05/22/25 09:00 05/24/25 08:32 Enoxaparin 40 Mg/0.4 Ml Syringe SUBQ 40 mg DAILY WEST Administration Olanzapine 5 mg 05/22/25 09:00 05/24/25 08:32 Olanzapine Odt 5 Mg Tablet TL 5 mg DAILY WEST Administration Ondansetron HCl 4 mg 05/21/25 14:24 Ondansetron Odt 4 Mg Tablet TL Q6HR PRN Nausea / Vomiting Ondansetron HCl 4 mg 05/21/25 14:24 Ondansetron 4 Mg/2 Ml Vial IVP Q6HR PRN Nausea / Vomiting Prochlorperazine Edisylate 10 mg 05/21/25 14:24 Prochlorperazine 10 Mg/2 Ml Vial IVP Q6HR PRN Nausea / Vomiting Sodium Chloride 10 ml 05/21/25 14:24 Sodium Chloride Flush 0.9% 10 Ml Syringe IVP PRN PRN NEEDED PER PROVIDER ORDERS Sodium Chloride 10 ml 05/21/25 17:00 05/24/25 08:33 Sodium Chloride Flush 0.9% 10 Ml Syringe IVP Not Given 0100,0900,1700 [facility] Objective Vital Signs/Intake & Output Reviewed Vital Signs: Yes Vital Signs: Vital Signs x48h Temp Pulse Resp BP Pulse Ox 05/24/25 08:30 36.5 C 121 H 18 152/106 H 98 Intake & Output: Intake & Output 05/21/25 05/22/25 05/23/25 05/24/25 23:59 23:59 23:59 23:59 Intake Total 420 / 420 360 / 360 1020 / 1020 360 / 360 Output Total 4 / 4 Balance 420 / 420 360 / 360 1016 / 1016 360 / 360 Objective General Appearance: positive No acute distress and Alert Eyes Bilateral: positive Normal inspection ENT: positive ENT inspection nml Neck: positive Nml inspection Respiratory: positive Chest non-tender Cardiovascular: positive Regular rate & rhythm Abdomen: positive Non-tender Back: positive Nml inspection Skin: positive Color nml Extremities: positive Non-tender Neurologic/Psychiatric: positive Disoriented to place and Disoriented to time Lab Results 05/24/25 05:35 05/24/25 05:35 Other Labs: Lab Results x24hrs 05/24/25 Range/Units 05:35 WBC 6.4 (4.8-10.8) x10^3/uL RBC 5.00 (4.20-5.40) 10^6/uL Hgb 15.5 (12.0-16.0) g/dL Hct 45.9 (37.0-47.0) % MCV 91.8 (81.0-99.0) fL MCH 31.0 (27.0-31.0) pg MCHC 33.8 (32.0-36.0) g/dL RDW 12.7 (12.0-15.0) % Plt Count 364 (130-450) 10^3/uL MPV 9.3 (7.9-10.8) fL Neut # (Auto) 3.5 (1.5-6.6) 10^3/uL Lymph # (Auto) 1.9 (1.5-3.5) 10^3/uL [place] # (Auto) 0.8 (0.0-1.0) 10^3/uL Eos # (Auto) 0.2 (0.0-0.7) 10^3/uL Baso # (Auto) 0.0 (0.0-0.1) 10^3/uL Absolute Nucleated RBC 0.00 x10^3/uL Nucleated RBC % 0.0 /100WBC Sodium 137 (135-145) mmol/L Potassium 4.6 H (3.5-4.5) mmol/L Chloride 100 L (101-111) mmol/L Carbon Dioxide 30 (21-32) mmol/L Anion Gap 7.0 (6-13) BUN 20 (6-20) mg/dL Creatinine 0.6 (0.6-1.3) mg/dL Estimated GFR (MDRD) 102 (>89) Glucose 102 (74-104) mg/dL Calcium 10.0 (8.5-10.3) mg/dL Assessment/Plan Problem List (1) Altered mental status: Impression: Her altered mentation is secondary to polysubstance abuse UDS on presentation positive for opiates, amphetamine, methamphetamine, cocaine No significant improvement during ER stay, so she is being held here as a extended stay patron from the ER. Social work working on placement 05/21/2025: Last night after time of my note by ordered a banana bag and an MRI brain. No significant improvement from banana bag. Attempting MRI today, suspect patient will not be able to hold still for this. If unable to obtain, may obtain follow-up CT head 05/22/2025: Patient is now in observation status for further workup of her altered mental status. Repeat CT head has been performed, awaiting read. Still attempting to get in touch with family for an MRI screening form. If you are unable to get this done, will discuss with radiology possibility of getting screening x-rays and then performing MRI brain. I would like to get a MRI brain and a psych eval to make absolutely sure that there is no other cause of her altered mentation and it is in fact from her drug use. 7525: Social work has found a new contact number to get in touch with her family. We are working on calling the person who owns the land that her camper is on so they can get in touch with her daughter for MRI screening form. I have ordered an MRI brain without contrast and have ordered 10 mg IM Valium to Keep her calm during MRI 05/24: Mentation slightly better today. Oriented x 1, brightens with approach. Still awaiting MRI brain, staff still unable to get in contact with her family for screening form. Tomorrow, if we cannot get in touch with her family, we will explore options for x-rays to clear her for MRI. Adding schedule MVI, thiamine Qualifiers: Altered mental status type: stupor Qualified Code(s): R40.1 - Stupor (2) Polysubstance abuse: Impression: She presented to the hospital on 05/13/2025, has been off of illicit substances since then
[2025-05-25 05:05] LABS: HCT - HEMATOCRIT 46.2 % (37.0-47.0); HGB - HEMOGLOBIN 15.5 g/dL (12.0-16.0); MEAN PLATELET VOLUME 9.7 fL (7.9-10.8); NRBC ABSOLUTE COUNT (AUTO) 0.00 x10^3/uL; NUCLEATED RED BLOOD CELLS AUTO 0.0 /100WBC; PLT - PLATELET COUNT 391 10^3/uL (130-450); RED CELL DISTRIBUTION WIDTH 12.6 % (12.0-15.0)
[2025-05-25 05:32] LABS: BUN - BLOOD UREA NITROGEN 15.0 mg/dL (6-20); CARBON DIOXIDE - CO2 29.0 mmol/L (21-32); CREATININE 0.7 mg/dL (0.6-1.3); GFR - MDRD 86.0 (>89)
[2025-05-25] MEDS: SENNA 8.6 MG TABLET PO SCH (08:58)
[2025-05-25] MEDS: PRENATAL VITAMIN TABLET PO SCH (08:59)
[2025-05-25] MEDS: THIAMINE 100 MG TABLET PO SCH (08:59)
--- NOTE | 2025-05-25 11:38 | PROVIDER PROGRESS NOTE ---
Subjective Prog Note Date Prog Note Date: 05/25/25 Subjective Pt reports feeling: No change Current Medications Current Medications Current Medications: Current Medications Generic Name Dose Route Start Last Admin Trade Name Freq PRN Reason Stop Dose Admin Acetaminophen 650 mg 05/21/25 14:24 Acetaminophen 325 Mg Tablet PO Q4HR PRN Pain 1 to 4, or Fever Diazepam 10 mg 05/23/25 11:01 Diazepam Inj 5 Mg/Ml Syringe IM .ONCE PRN MRI Docusate Sodium 250 - 500 mg 05/24/25 09:00 05/25/25 08:58 Docusate Sodium 250 Mg Capsule PO 500 mg DAILY WEST Administration Enoxaparin Sodium 40 mg 05/22/25 09:00 05/25/25 08:59 Enoxaparin 40 Mg/0.4 Ml Syringe SUBQ 40 mg DAILY WEST Administration Olanzapine 5 mg 05/22/25 09:00 05/25/25 08:59 Olanzapine Odt 5 Mg Tablet TL 5 mg DAILY WEST Administration Ondansetron HCl 4 mg 05/21/25 14:24 Ondansetron Odt 4 Mg Tablet TL Q6HR PRN Nausea / Vomiting Ondansetron HCl 4 mg 05/21/25 14:24 Ondansetron 4 Mg/2 Ml Vial IVP Q6HR PRN Nausea / Vomiting Polyethylene Glycol 17 gm 05/25/25 09:00 05/25/25 08:58 Polyethylene Glycol 3350 17 Gm Packet PO 17 gm DAILY WEST Administration Multivit/Folic Acid/Iron 1 tab 05/25/25 08:00 05/25/25 08:59 Vitamin Tablet PO 1 tab DAILYWM WEST Administration Prochlorperazine Edisylate 10 mg 05/21/25 14:24 Prochlorperazine 10 Mg/2 Ml Vial IVP Q6HR PRN Nausea / Vomiting Senna 8.6 - 17.2 mg 05/25/25 09:00 05/25/25 08:58 Senna 8.6 Mg Tablet PO 17.2 mg DAILY WEST Administration Sodium Chloride 10 ml 05/21/25 14:24 Sodium Chloride Flush 0.9% 10 Ml Syringe IVP PRN PRN NEEDED PER PROVIDER ORDERS Thiamine HCl 100 mg 05/25/25 09:00 05/25/25 08:59 Thiamine 100 Mg Tablet PO 100 mg DAILY WEST Administration Objective Vital Signs/Intake & Output Reviewed Vital Signs: Yes Vital Signs: Vital Signs x48h Temp Pulse Resp BP Pulse Ox 05/25/25 08:25 36.6 C 85 16 143/94 H 98 Intake & Output: Intake & Output 05/22/25 05/23/25 05/24/25 05/25/25 23:59 23:59 23:59 23:59 Intake Total 360 / 360 1020 / 1020 1200 / 1200 420 / 420 Output Total / 4 Balance 360 / 360 1016 / 1016 1200 / 1200 420 / 420 Weight (kg) 44 kg Objective General Appearance: positive No acute distress and Alert Eyes Bilateral: positive Normal inspection ENT: positive ENT inspection nml Neck: positive Nml inspection Respiratory: positive Chest non-tender Cardiovascular: positive Regular rate & rhythm Abdomen: positive Non-tender Back: positive Nml inspection Skin: positive Color nml Extremities: positive Non-tender Neurologic/Psychiatric: positive Disoriented to place and Disoriented to time Lab Results 05/25/25 04:23 05/25/25 04:23 Other Labs: Lab Results x24hrs 05/25/25 Range/Units 04:23 WBC 7.3 (4.8-10.8) x10^3/uL RBC 5.08 (4.20-5.40) 10^6/uL Hgb 15.5 (12.0-16.0) g/dL Hct 46.2 (37.0-47.0) % MCV 90.9 (81.0-99.0) fL MCH 30.5 (27.0-31.0) pg MCHC 33.5 (32.0-36.0) g/dL RDW 12.6 (12.0-15.0) % Plt Count 391 (130-450) 10^3/uL MPV 9.7 (7.9-10.8) fL Neut # (Auto) 4.5 (1.5-6.6) 10^3/uL Lymph # (Auto) 1.7 (1.5-3.5) 10^3/uL [place] # (Auto) 0.9 (0.0-1.0) 10^3/uL Eos # (Auto) 0.2 (0.0-0.7) 10^3/uL Baso # (Auto) 0.0 (0.0-0.1) 10^3/uL Absolute Nucleated RBC 0.00 x10^3/uL Nucleated RBC % 0.0 /100WBC Sodium 137 (135-145) mmol/L Potassium 4.4 (3.5-4.5) mmol/L Chloride 101 (101-111) mmol/L Carbon Dioxide 29 (21-32) mmol/L Anion Gap 7.0 (6-13) BUN 15 (6-20) mg/dL Creatinine 0.7 (0.6-1.3) mg/dL Estimated GFR (MDRD) 86 L (>89) Glucose 103 (74-104) mg/dL Calcium 10.0 (8.5-10.3) mg/dL Assessment/Plan Problem List (1) Altered mental status: Impression: Her altered mentation is secondary to polysubstance abuse UDS on presentation positive for opiates, amphetamine, methamphetamine, cocaine No significant improvement during ER stay, so she is being held here as a extended stay patron from the ER. Social work working on placement 05/21/2025: Last night after time of my note by ordered a banana bag and an MRI brain. No significant improvement from banana bag. Attempting MRI today, suspect patient will not be able to hold still for this. If unable to obtain, may obtain follow-up CT head 05/22/2025: Patient is now in observation status for further workup of her altered mental status. Repeat CT head has been performed, awaiting read. Still attempting to get in touch with family for an MRI screening form. If you are unable to get this done, will discuss with radiology possibility of getting screening x-rays and then performing MRI brain. I would like to get a MRI brain and a psych eval to make absolutely sure that there is no other cause of her altered mentation and it is in fact from her drug use. 7525: Social work has found a new contact number to get in touch with her family. We are working on calling the person who owns the land that her camper is on so they can get in touch with her daughter for MRI screening form. I have ordered an MRI brain without contrast and have ordered 10 mg IM Valium to Keep her calm during MRI 05/24: Mentation slightly better today. Oriented x 1, brightens with approach. Still awaiting MRI brain, staff still unable to get in contact with her family for screening form. Tomorrow, if we cannot get in touch with her family, we will explore options for x-rays to clear her for MRI. Adding schedule MVI, thiamine 05/25: No change in mentation. Nursing was able to get in touch with family, so she is now able to undergo MRI brain. If MRI brain is clear, will pursue telepsych consultation Qualifiers: Altered mental status type: stupor Qualified Code(s): R40.1 - Stupor (2) Polysubstance abuse: Impression: She presented to the hospital on 05/13/2025, has been off of illicit substances since then Family expressed concern for a fall at home. Patient is moving all extremities equally, but I will go ahead and get x-rays of the hip to rule out hip fracture per family request.
[2025-05-25] MEDS: diazePAM INJ 5 MG/ML SYRINGE IM PRN (15:53)
[2025-05-26 05:03] LABS: HCT - HEMATOCRIT 43.6 % (37.0-47.0); HGB - HEMOGLOBIN 15.1 g/dL (12.0-16.0); MEAN PLATELET VOLUME 9.7 fL (7.9-10.8); NRBC ABSOLUTE COUNT (AUTO) 0.00 x10^3/uL; NUCLEATED RED BLOOD CELLS AUTO 0.0 /100WBC; PLT - PLATELET COUNT 380 10^3/uL (130-450); RED CELL DISTRIBUTION WIDTH 12.5 % (12.0-15.0)
[2025-05-26 05:19] LABS: BUN - BLOOD UREA NITROGEN 17.0 mg/dL (6-20); CARBON DIOXIDE - CO2 31.0 mmol/L (21-32); CREATININE 0.6 mg/dL (0.6-1.3); GFR - MDRD 102.0 (>89)
--- NOTE | 2025-05-26 09:39 | MRI Report ---
PROCEDURE: MRI Brain WO INDICATIONS: Workup AMS TECHNIQUE: Multisequence MRI of the brain was performed without intravenous contrast. COMPARISON: CT head 05/21/2025 FINDINGS: Image quality: Excellent. CSF Spaces: Basal cisterns are patent. No extra-axial fluid collections. Ventricles are normal in size and shape. Brain: There appears to be mild diffuse white matter hyperintense signal within the supratentorial white matter. No intracranial masses or hemorrhage. [place]/white matter interface is normal. Brainstem appears normal. Diffusion- weighted images demonstrate no acute ischemic insult. No chronic ischemic insults. Normal intravascular flow voids are present. Skull and face: Calvarium has normal marrow signal. Orbits appear normal. Sinuses: Sinuses and mastoids are clear. IMPRESSION: There appears to be mild diffuse white matter hyperintense signal which may represent edema. Consider toxic metabolic etiologies. This doesn't have the typical distribution of PRES, however this should be considered. Reviewed by: Jeffery Coker MD on 05/26/2025 9:37 AM PDT Approved by: Jeffery Coker MD on 05/26/2025 9:37 AM PDT Station ID: [id number]
--- NOTE | 2025-05-26 10:19 | XRAY Report ---
PROCEDURE: XR Hips w/Pelvis 2-3V BL INDICATIONS: Reported fall TECHNIQUE: 5 view(s) of the hip were acquired. COMPARISON: None. FINDINGS: Bones: Diffuse generalized osseous demineralization. Moderately displaced fracture of the right inferior pubic ramus with extension into the medial acetabular column and possibly to the pelvic ring. The left pubic bones are intact without evidence of fracture. Bilateral femoral necks and heads are inta ct without evidence of fracture. No suspicious bony lesions. The visualized pelvic ring appears otherwise intact. Soft tissues: No suspicious soft tissue calcifications or masses. IMPRESSION: Moderately displaced right inferior pubic ramus fracture with extension into the medial acetabular column and suspicion for extension to the pelvic ring/superior pubic ramus. Reviewed by: Fletcher Smith MD on 05/26/2025 10:17 AM PDT Approved by: Fletcher Smith MD on 05/26/2025 10:17 AM PDT Station ID: [id number]
--- NOTE | 2025-05-26 12:11 | PROVIDER PROGRESS NOTE ---
Subjective Prog Note Date Prog Note Date: 05/26/25 Subjective Pt reports feeling: No change Current Medications Current Medications Current Medications: Current Medications Generic Name Dose Route Start Last Admin Trade Name Freq PRN Reason Stop Dose Admin Acetaminophen 650 mg 05/21/25 14:24 Acetaminophen 325 Mg Tablet PO Q4HR PRN Pain 1 to 4, or Fever Docusate Sodium 250 - 500 mg 05/24/25 09:00 05/26/25 08:50 Docusate Sodium 250 Mg Capsule PO 500 mg DAILY WEST Administration Enoxaparin Sodium 40 mg 05/22/25 09:00 05/26/25 08:50 Enoxaparin 40 Mg/0.4 Ml Syringe SUBQ 40 mg DAILY WEST Administration Olanzapine 5 mg 05/26/25 12:04 Olanzapine Odt 5 Mg Tablet TL DAILY PRN Agitation Ondansetron HCl 4 mg 05/21/25 14:24 Ondansetron Odt 4 Mg Tablet TL Q6HR PRN Nausea / Vomiting Ondansetron HCl 4 mg 05/21/25 14:24 Ondansetron 4 Mg/2 Ml Vial IVP Q6HR PRN Nausea / Vomiting Polyethylene Glycol 17 gm 05/25/25 09:00 05/26/25 08:49 Polyethylene Glycol 3350 17 Gm Packet PO 17 gm DAILY WEST Administration Multivit/Folic Acid/Iron 1 tab 05/25/25 08:00 05/26/25 08:50 Vitamin Tablet PO 1 tab DAILYWM WEST Administration Prochlorperazine Edisylate 10 mg 05/21/25 14:24 Prochlorperazine 10 Mg/2 Ml Vial IVP Q6HR PRN Nausea / Vomiting Senna 8.6 - 17.2 mg 05/25/25 09:00 05/26/25 08:50 Senna 8.6 Mg Tablet PO 17.2 mg DAILY WEST Administration Sodium Chloride 10 ml 05/21/25 14:24 Sodium Chloride Flush 0.9% 10 Ml Syringe IVP PRN PRN NEEDED PER PROVIDER ORDERS Thiamine HCl 100 mg 05/25/25 09:00 05/26/25 08:50 Thiamine 100 Mg Tablet PO 100 mg DAILY WEST Administration Objective Vital Signs/Intake & Output Reviewed Vital Signs: Yes Vital Signs: Vital Signs x48h Temp Pulse Resp BP Pulse Ox 05/26/25 07:34 36.5 C 92 20 130/93 H 95 Intake & Output: Intake & Output 05/23/25 05/24/25 05/25/25 05/26/25 23:59 23:59 23:59 23:59 Intake Total 1020 / 1020 1200 / 1200 1740 / 1740 660 / 660 Output Total Balance 1016 / 1016 1200 / 1200 1740 / 1740 660 / 660 Weight (kg) 44 kg Objective General Appearance: positive No acute distress and Alert Eyes Bilateral: positive Normal inspection ENT: positive ENT inspection nml Neck: positive Nml inspection Respiratory: positive Chest non-tender Cardiovascular: positive Regular rate & rhythm Abdomen: positive Non-tender Back: positive Nml inspection Skin: positive Color nml Extremities: positive Non-tender Neurologic/Psychiatric: positive Disoriented to place and Disoriented to time Lab Results 05/26/25 04:15 05/26/25 04:15 Other Labs: Lab Results x24hrs 05/26/25 Range/Units 04:15 WBC 5.8 (4.8-10.8) x10^3/uL RBC 4.82 (4.20-5.40) 10^6/uL Hgb 15.1 (12.0-16.0) g/dL Hct 43.6 (37.0-47.0) % MCV 90.5 (81.0-99.0) fL MCH 31.3 H (27.0-31.0) pg MCHC 34.6 (32.0-36.0) g/dL RDW 12.5 (12.0-15.0) % Plt Count 380 (130-450) 10^3/uL MPV 9.7 (7.9-10.8) fL Neut # (Auto) 2.9 (1.5-6.6) 10^3/uL Lymph # (Auto) 1.8 (1.5-3.5) 10^3/uL [place] # (Auto) 0.8 (0.0-1.0) 10^3/uL Eos # (Auto) 0.3 (0.0-0.7) 10^3/uL Baso # (Auto) 0.0 (0.0-0.1) 10^3/uL Absolute Nucleated RBC 0.00 x10^3/uL Nucleated RBC % 0.0 /100WBC Sodium 138 (135-145) mmol/L Potassium 5.0 H (3.5-4.5) mmol/L Chloride 101 (101-111) mmol/L Carbon Dioxide 31 (21-32) mmol/L Anion Gap 6.0 (6-13) BUN 17 (6-20) mg/dL Creatinine 0.6 (0.6-1.3) mg/dL Estimated GFR (MDRD) 102 (>89) Glucose 107 H (74-104) mg/dL Calcium 10.0 (8.5-10.3) mg/dL Assessment/Plan Problem List (1) Altered mental status: Impression: Her altered mentation is secondary to polysubstance abuse UDS on presentation positive for opiates, amphetamine, methamphetamine, cocaine No significant improvement during ER stay, so she is being held here as a extended stay patron from the ER. Social work working on placement 05/21/2025: Last night after time of my note by ordered a banana bag and an MRI brain. No significant improvement from banana bag. Attempting MRI today, suspect patient will not be able to hold still for this. If unable to obtain, may obtain follow-up CT head 05/22/2025: Patient is now in observation status for further workup of her altered mental status. Repeat CT head has been performed, awaiting read. Still attempting to get in touch with family for an MRI screening form. If you are unable to get this done, will discuss with radiology possibility of getting screening x-rays and then performing MRI brain. I would like to get a MRI brain and a psych eval to make absolutely sure that there is no other cause of her altered mentation and it is in fact from her drug use. [id number]: Social work has found a new contact number to get in touch with her family. We are working on calling the person who owns the land that her camper is on so they can get in touch with her daughter for MRI screening form. I have ordered an MRI brain without contrast and have ordered 10 mg IM Valium to Keep her calm during MRI 05/24: Mentation slightly better today. Oriented x 1, brightens with approach. Still awaiting MRI brain, staff still unable to get in contact with her family for screening form. Tomorrow, if we cannot get in touch with her family, we will explore options for x-rays to clear her for MRI. Adding schedule MVI, thiamine 05/25: No change in mentation. Nursing was able to get in touch with family, so she is now able to undergo MRI brain. If MRI brain is clear, will pursue telepsych consultation 05/26: MRI brain has resulted showing mild diffuse white matter hyperintense signal possibly representing edema. Consider toxic metabolic etiologies. It did not rule out press, but her blood pressure is well-controlled. I have decreased her Zyprexa to as needed from scheduled. Continuing thiamine and folate supplementation. We have no OT available for cognitive eval. I do not believe that she is alert and talking enough to meaningfully participate in telepsych consultation, but this may help in obtaining a guardian for her, which I believe she will need. She is not showing meaningful improvement in mentation, so we may need to be looking for long-term care for her. I am also checking a thiamine level, and preemptively starting her on 500 mg IV every 8 her thiamine to see if this gives us any improvement in symptoms. I reached out to her neurologist at [facility], who recommended LP and continuing supportive care. She reports that given the diffuse nature of the white matter hyperintensity, this is possibly a developing hypoxia event. At this point, she has been here a week and has maintained adequate saturations so the damage is already done. Qualifiers: Altered mental status type: stupor Qualified Code(s): R40.1 - Stupor (2) Polysubstance abuse: Impression: She presented to the hospital on 05/13/2025, has been off of illicit substances since then Family expressed concern for a fall at home. Patient is moving all extremities equally, but I will go ahead and get x-rays of the hip to rule out hip fracture per family request. (3) Pubic bone fracture: Impression: Hip x-ray from yesterday shows a moderately displaced right inferior pubic ramus fracture with extension into the medial acetabular column and suspicion for extension to the pelvic ring. I discussed her case with our on-call orthopedist, who states that treatment for this is nonoperative. He recommended weightbearing as tolerated, and walker at discharge. Will order PT eval if her mentation improves enough to participate with physical therapy
[2025-05-26] MEDS: THIAMINE INJ 500 MG in SODIUM CHLORIDE 0.9% 50 ML IV SCH (14:36)
[2025-05-26] MEDS: THIAMINE 100 MG/1 ML 2 ML MDV IM SCH ×2 (14:37→22:21)
[2025-05-26] MEDS ORDERED: diazePAM INJ 5 MG/ML SYRINGE IM PRN (17:15)
[2025-05-27 05:08] LABS: HCT - HEMATOCRIT 42.7 % (37.0-47.0); HGB - HEMOGLOBIN 14.9 g/dL (12.0-16.0); MEAN PLATELET VOLUME 9.9 fL (7.9-10.8); NRBC ABSOLUTE COUNT (AUTO) 0.00 x10^3/uL; NUCLEATED RED BLOOD CELLS AUTO 0.0 /100WBC; PLT - PLATELET COUNT 375 10^3/uL (130-450); RED CELL DISTRIBUTION WIDTH 12.6 % (12.0-15.0)
[2025-05-27 05:24] LABS: BUN - BLOOD UREA NITROGEN 18.0 mg/dL (6-20); CARBON DIOXIDE - CO2 30.0 mmol/L (21-32); CREATININE 0.7 mg/dL (0.6-1.3); GFR - MDRD 86.0 (>89)
[2025-05-27] MEDS: THIAMINE 100 MG/1 ML 2 ML MDV IM SCH (06:55)
--- NOTE | 2025-05-27 11:19 | PROVIDER PROGRESS NOTE ---
<Statement entered by Jair Montano DNP - 05/27/25 16:53> Patient was seen and examined by me with a separate encounter after being seen by [employer] student. I reviewed the student's documentation including patient history, physical examination, laboratory, imaging, clinical assessment and treatment plan. I have discussed the management of the patient with the student, and with the patient. There are no changes. Attempting to reach daughter so that we can get consent for LP Subjective Prog Note Date Prog Note Date: 05/27/25 Prog Note Time: 11:19 Subjective Pt reports feeling: Improved Current Medications Current Medications Current Medications: Current Medications Generic Name Dose Route Start Last Admin Trade Name Freq PRN Reason Stop Dose Admin Acetaminophen 650 mg 05/21/25 14:24 Acetaminophen 325 Mg Tablet PO Q4HR PRN Pain 1 to 4, or Fever Diazepam 10 mg 05/26/25 17:15 Diazepam Inj 5 Mg/Ml Syringe IM 05/28/25 17:14 ONCE PRN Agitation Docusate Sodium 250 - 500 mg 05/24/25 09:00 05/27/25 09:21 Docusate Sodium 250 Mg Capsule PO 250 mg DAILY WEST Administration Enoxaparin Sodium 40 mg 05/22/25 09:00 05/27/25 08:22 Enoxaparin 40 Mg/0.4 Ml Syringe SUBQ 40 mg DAILY WEST Administration Olanzapine 5 mg 05/26/25 12:04 Olanzapine Odt 5 Mg Tablet TL DAILY PRN Agitation Ondansetron HCl 4 mg 05/21/25 14:24 Ondansetron Odt 4 Mg Tablet TL Q6HR PRN Nausea / Vomiting Ondansetron HCl 4 mg 05/21/25 14:24 Ondansetron 4 Mg/2 Ml Vial IVP Q6HR PRN Nausea / Vomiting Polyethylene Glycol 17 gm 05/25/25 09:00 05/27/25 09:20 Polyethylene Glycol 3350 17 Gm Packet PO 17 gm DAILY WEST Administration Multivit/Folic Acid/Iron 1 tab 05/25/25 08:00 05/27/25 09:21 Vitamin Tablet PO 1 tab DAILYWM WEST Administration Prochlorperazine Edisylate 10 mg 05/21/25 14:24 Prochlorperazine 10 Mg/2 Ml Vial IVP Q6HR PRN Nausea / Vomiting Senna 8.6 - 17.2 mg 05/25/25 09:00 05/27/25 09:21 Senna 8.6 Mg Tablet PO 8.6 mg DAILY WEST Administration Sodium Chloride 10 ml 05/21/25 14:24 Sodium Chloride Flush 0.9% 10 Ml Syringe IVP PRN PRN NEEDED PER PROVIDER ORDERS Thiamine HCl 500 mg 05/27/25 06:30 05/27/25 06:55 Thiamine 100 Mg/1 Ml 2 Ml Mdv IM 500 mg Q8H WEST Administration Objective Vital Signs/Intake & Output Reviewed Vital Signs: Yes Vital Signs: Vital Signs x48h Temp Pulse Resp BP Pulse Ox 05/27/25 07:36 36.5 C 99 18 125/93 H 96 Intake & Output: Intake & Output 05/24/25 05/25/25 05/26/25 05/27/25 23:59 23:59 23:59 23:59 Intake Total 1200 / 1200 1740 / 1740 1610 / 1610 480 / 480 Balance 1200 / 1200 1740 / 1740 1610 / 1610 480 / 480 Weight (kg) 44 kg Objective General Appearance: positive No acute distress and Alert Eyes Bilateral: positive Normal inspection ENT: positive ENT inspection nml Neck: positive Nml inspection and Trachea midline Respiratory: positive No respiratory distress and Breath sounds nml Cardiovascular: positive Regular rate & rhythm, No murmur and No gallop Peripheral Pulses: 2+: Radial (R), 2+: Radial (L), 2+: Dorsalis pedis (R), 2+: Dorsalis pedis (L), 2+: Posterior tibialis (R) and 2+: Posterior tibialis (L) Abdomen: positive Non-tender, No organomegaly and Nml bowel sounds Skin: positive Color nml, No rash, Warm and Dry Extremities: positive Non-tender, Full ROM, Nml appearance and No pedal edema Neurologic/Psychiatric: positive Sensation nml, Disoriented to place, Disoriented to time, Weakness and Other (able to tell me her name and her daughter's name. able to move bilateral lower legs. denied generalized pain. needed frequent re orientation. ) Lab Results 05/29/25 05:09 05/29/25 05:09 Other Labs: Lab Results x24hrs 05/27/25 Range/Units 04:14 WBC 7.0 (4.8-10.8) x10^3/uL RBC 4.71 (4.20-5.40) 10^6/uL Hgb 14.9 (12.0-16.0) g/dL Hct 42.7 (37.0-47.0) % MCV 90.7 (81.0-99.0) fL MCH 31.6 H (27.0-31.0) pg MCHC 34.9 (32.0-36.0) g/dL RDW 12.6 (12.0-15.0) % Plt Count 375 (130-450) 10^3/uL MPV 9.9 (7.9-10.8) fL Neut # (Auto) 4.2 (1.5-6.6) 10^3/uL Lymph # (Auto) 1.7 (1.5-3.5) 10^3/uL [place] # (Auto) 0.8 (0.0-1.0) 10^3/uL Eos # (Auto) 0.3 (0.0-0.7) 10^3/uL Baso # (Auto) 0.1 (0.0-0.1) 10^3/uL Absolute Nucleated RBC 0.00 x10^3/uL Nucleated RBC % 0.0 /100WBC Sodium 137 (135-145) mmol/L Potassium 4.3 (3.5-4.5) mmol/L Chloride 101 (101-111) mmol/L Carbon Dioxide 30 (21-32) mmol/L Anion Gap 6.0 (6-13) BUN 18 (6-20) mg/dL Creatinine 0.7 (0.6-1.3) mg/dL Estimated GFR (MDRD) 86 L (>89) Glucose 95 (74-104) mg/dL Calcium 9.8 (8.5-10.3) mg/dL Diagnostic Imaging Diagnostic Imaging Results: positive Final report reviewed ABX Reporting Has patient been on IV antibiotics over the past 48 hours?: No Sepsis Event Note (H) Evaluation Current Stage of Sepsis: Ruled out Assessment/Plan Problem List (1) Altered mental status: Impression: Awake and alert this morning, Oriented *1. Able to follow some commands, but required frequent reminders. MRI showed mild diffuse white matter hypertensive signals suggesting possible edema. It does not show typical distribution of PRES. Systolic has been controlled in 130s. No seizures during the hospital course. Sodium at 137 on 05/27/25. No hypoglycemia episodes overnight. * LP is pending and awaiting consent from her daughter. Need to hold Lovenox 12 hours prior. * Supplementing WITH 500 MG Thiamine to cover for Wernicke's encephalopathy. * Replacing folate through multi vitamins. * Seizure precautions. * PRN Zyprexa Qualifiers: Altered mental status type: stupor Qualified Code(s): R40.1 - Stupor (2) Polysubstance abuse: Impression: She presented to the hospital on 05/13/2025, has been off of illicit substances since then. * Replacing folate (multi vitamins) (3) Pubic bone fracture: Impression: Hip X-ray on shows moderately displaced right inferior pubic ramus fracture with extension into medial acetabular columns, with suspicion for extension to pelvic ring. Per the on-call Orthopedic surgeon, this is an inoperable injury and requires supportive care: weight bearing as tolerated and walker at discharge. * PT evaluation pending: The patient cannot follow PT commands today. * PRN Tylenol * Fall precautions.
[2025-05-28 05:38] LABS: HCT - HEMATOCRIT 45.0 % (37.0-47.0); HGB - HEMOGLOBIN 15.2 g/dL (12.0-16.0); MEAN PLATELET VOLUME 9.5 fL (7.9-10.8); NRBC ABSOLUTE COUNT (AUTO) 0.00 x10^3/uL; NUCLEATED RED BLOOD CELLS AUTO 0.0 /100WBC; PLT - PLATELET COUNT 346 10^3/uL (130-450); RED CELL DISTRIBUTION WIDTH 12.7 % (12.0-15.0)
[2025-05-28 05:55] LABS: BUN - BLOOD UREA NITROGEN 14.0 mg/dL (6-20); CARBON DIOXIDE - CO2 30.0 mmol/L (21-32); CREATININE 0.6 mg/dL (0.6-1.3); GFR - MDRD 102.0 (>89)
[2025-05-28] MEDS: MAGNESIUM HYDROXIDE 2,400 MG/30 ML UDC PO ONE (08:12)
[2025-05-28] MEDS: SENNA 8.6 MG TABLET PO SCH ×2 (08:13→22:14)
--- NOTE | 2025-05-28 17:03 | PROVIDER PROGRESS NOTE ---
Subjective Prog Note Date Prog Note Date: 05/28/25 Subjective Pt reports feeling: No change Current Medications Current Medications Current Medications: Current Medications Generic Name Dose Route Start Last Admin Trade Name Freq PRN Reason Stop Dose Admin Acetaminophen 650 mg 05/21/25 14:24 Acetaminophen 325 Mg Tablet PO Q4HR PRN Pain 1 to 4, or Fever Diazepam 10 mg 05/26/25 17:15 Diazepam Inj 5 Mg/Ml Syringe IM 05/28/25 17:14 ONCE PRN Agitation Docusate Sodium 250 - 500 mg 05/24/25 09:00 05/28/25 08:12 Docusate Sodium 250 Mg Capsule PO 250 mg DAILY WEST Administration Enoxaparin Sodium 40 mg 05/28/25 19:00 Enoxaparin 40 Mg/0.4 Ml Syringe SUBQ 1900 WEST Olanzapine 5 mg 05/26/25 12:04 Olanzapine Odt 5 Mg Tablet TL DAILY PRN Agitation Ondansetron HCl 4 mg 05/21/25 14:24 Ondansetron Odt 4 Mg Tablet TL Q6HR PRN Nausea / Vomiting Ondansetron HCl 4 mg 05/21/25 14:24 Ondansetron 4 Mg/2 Ml Vial IVP Q6HR PRN Nausea / Vomiting Polyethylene Glycol 17 gm 05/25/25 09:00 05/28/25 08:12 Polyethylene Glycol 3350 17 Gm Packet PO 17 gm DAILY WEST Administration Multivit/Folic Acid/Iron 1 tab 05/25/25 08:00 05/28/25 08:12 Vitamin Tablet PO 1 tab DAILYWM WEST Administration Prochlorperazine Edisylate 10 mg 05/21/25 14:24 Prochlorperazine 10 Mg/2 Ml Vial IVP Q6HR PRN Nausea / Vomiting Senna 17.2 - 25.8 mg 05/28/25 09:00 05/28/25 14:31 Senna 8.6 Mg Tablet PO 05/29/25 03:01 17.2 mg Q6H WEST Administration Sodium Chloride 10 ml 05/21/25 14:24 Sodium Chloride Flush 0.9% 10 Ml Syringe IVP PRN PRN NEEDED PER PROVIDER ORDERS Thiamine HCl 500 mg 05/27/25 06:30 05/28/25 14:21 Thiamine 100 Mg/1 Ml 2 Ml Mdv IM 500 mg Q8H WEST Administration Objective Vital Signs/Intake & Output Reviewed Vital Signs: Yes Vital Signs: Vital Signs x48h Temp Pulse Resp BP Pulse Ox 05/28/25 15:38 36.9 C 101 H 17 164/90 H 95 Intake & Output: Intake & Output 05/25/25 05/26/25 05/27/25 05/28/25 23:59 23:59 23:59 23:59 Intake Total 1740 / 1740 1610 / 1610 1180 / 1180 678 / 678 Balance 1740 / 1740 1610 / 1610 1180 / 1180 678 / 678 Weight (kg) 44 kg Objective General Appearance: positive No acute distress and Alert Eyes Bilateral: positive Normal inspection ENT: positive ENT inspection nml Neck: positive Nml inspection and Trachea midline Respiratory: positive No respiratory distress and Breath sounds nml Cardiovascular: positive Regular rate & rhythm, No murmur and No gallop Abdomen: positive Non-tender, No organomegaly and Nml bowel sounds Skin: positive Color nml, No rash, Warm and Dry Extremities: positive Non-tender, Full ROM, Nml appearance and No pedal edema Neurologic/Psychiatric: positive Sensation nml, Disoriented to place and Disoriented to time Lab Results 05/28/25 05:22 05/28/25 05:22 Other Labs: Lab Results x24hrs 05/28/25 Range/Units 05:22 WBC 7.1 (4.8-10.8) x10^3/uL RBC 4.89 (4.20-5.40) 10^6/uL Hgb 15.2 (12.0-16.0) g/dL Hct 45.0 (37.0-47.0) % MCV 92.0 (81.0-99.0) fL MCH 31.1 H (27.0-31.0) pg MCHC 33.8 (32.0-36.0) g/dL RDW 12.7 (12.0-15.0) % Plt Count 346 (130-450) 10^3/uL MPV 9.5 (7.9-10.8) fL Neut # (Auto) 4.5 (1.5-6.6) 10^3/uL Lymph # (Auto) 1.7 (1.5-3.5) 10^3/uL [place] # (Auto) 0.7 (0.0-1.0) 10^3/uL Eos # (Auto) 0.2 (0.0-0.7) 10^3/uL Baso # (Auto) 0.0 (0.0-0.1) 10^3/uL Absolute Nucleated RBC 0.00 x10^3/uL Nucleated RBC % 0.0 /100WBC Sodium 138 (135-145) mmol/L Potassium 4.6 H (3.5-4.5) mmol/L Chloride 103 (101-111) mmol/L Carbon Dioxide 30 (21-32) mmol/L Anion Gap 5.0 L (6-13) BUN 14 (6-20) mg/dL Creatinine 0.6 (0.6-1.3) mg/dL Estimated GFR (MDRD) 102 (>89) Glucose 81 (74-104) mg/dL Calcium 9.7 (8.5-10.3) mg/dL Sepsis Event Note (H) Evaluation Current Stage of Sepsis: Ruled out Assessment/Plan Problem List (1) Altered mental status: Impression: Altered mentation likely secondary to polysubstance abuse UDS on presentation positive for opiates, amphetamine, methamphetamine, cocaine Patient was held in observation, and repeat CT and MRI were performed. MRI shows diffuse white matter hyperintense signal which may represent edema. Not the typical presentation of press Her altered mentation is not affected by her blood pressure, meaning it is not improved whenever her blood pressure is within normal limits I discussed her case with neurology on 05/26, who recommended LP, but stated that this is likely sequela of hypoxic event from drug use. I started her on thiamine 500 mg IM 3 times daily on 05 26, today is day 3 of that therapy, After which it will be discontinued We are attempting to reach out to her daughter for consent for LP, but she is transient at this time and no one is able to get in contact with her. Low suspicion for meningitis as she is freely moving her neck and for that matter her entire body, so I do not at this time think that we are justified in performing this emergently. Social work is continuing to attempt to reach the patient's daughter Qualifiers: Altered mental status type: stupor Qualified Code(s): R40.1 - Stupor (2) Polysubstance abuse: Impression: She has been in the hospital since 05/13/2025 UDS on presentation was positive for opiates, amphetamine, methamphetamine, cocaine She is likely out of the window for any acute withdrawal (3) Pubic bone fracture: Impression: X-ray hip on 05/25 shows moderately displaced right inferior pubic ramus fracture with extension in the medial acetabular column and suspicion for extension to the pelvic ring. Case was discussed with on-call orthopedist, who reports this is nonoperative. She is full weightbearing as tolerated and will need a walker at discharge. If her mentation improves, we will order PT eval
[2025-05-28] MEDS: ENOXAPARIN 40 MG/0.4 ML SYRINGE SUBQ SCH (18:44)
[2025-05-29 05:37] LABS: HCT - HEMATOCRIT 43.6 % (37.0-47.0); HGB - HEMOGLOBIN 14.8 g/dL (12.0-16.0); MEAN PLATELET VOLUME 11.0 fL (7.9-10.8); NRBC ABSOLUTE COUNT (AUTO) 0.00 x10^3/uL; NUCLEATED RED BLOOD CELLS AUTO 0.0 /100WBC; PLT - PLATELET COUNT 165 10^3/uL (130-450); RED CELL DISTRIBUTION WIDTH 12.7 % (12.0-15.0)
[2025-05-29 05:48] LABS: BUN - BLOOD UREA NITROGEN 13.0 mg/dL (6-20); CARBON DIOXIDE - CO2 27.0 mmol/L (21-32); CREATININE 0.6 mg/dL (0.6-1.3); GFR - MDRD 102.0 (>89)
[2025-05-29 06:00] LABS: PLATELET ESTIMATE, MANUAL NORMAL (130-450,000) (NORMAL); PLATELET MORPHOLOGY NORMAL APPEARANCE (NORMAL)
[2025-05-29] MEDS: SENNA 8.6 MG TABLET PO SCH (08:23)
--- NOTE | 2025-05-29 11:12 | PROVIDER PROGRESS NOTE ---
Subjective Prog Note Date Prog Note Date: 05/29/25 Subjective Pt reports feeling: No change Current Medications Current Medications Current Medications: Current Medications Generic Name Dose Route Start Last Admin Trade Name Falguni PRN Reason Stop Dose Admin Acetaminophen 650 mg 05/21/25 14:24 Acetaminophen 325 Mg Tablet PO Q4HR PRN Pain 1 to 4, or Fever Apixaban 2.5 mg 05/29/25 21:00 Apixaban 2.5 Mg Tablet PO BID WEST Docusate Sodium 250 - 500 mg 05/24/25 09:00 05/29/25 08:22 Docusate Sodium 250 Mg Capsule PO 500 mg DAILY WEST Administration Olanzapine 5 mg 05/26/25 12:04 Olanzapine Odt 5 Mg Tablet TL DAILY PRN Agitation Ondansetron HCl 4 mg 05/21/25 14:24 Ondansetron Odt 4 Mg Tablet TL Q6HR PRN Nausea / Vomiting Ondansetron HCl 4 mg 05/21/25 14:24 Ondansetron 4 Mg/2 Ml Vial IVP Q6HR PRN Nausea / Vomiting Polyethylene Glycol 17 gm 05/25/25 09:00 05/29/25 08:23 Polyethylene Glycol 3350 17 Gm Packet PO 17 gm DAILY WEST Administration Multivit/Folic Acid/Iron 1 tab 05/25/25 08:00 05/29/25 08:23 Vitamin Tablet PO 1 tab DAILYWM WEST Administration Prochlorperazine Edisylate 10 mg 05/21/25 14:24 Prochlorperazine 10 Mg/2 Ml Vial IVP Q6HR PRN Nausea / Vomiting Senna 17.2 - 25.8 mg 05/29/25 09:00 05/29/25 08:23 Senna 8.6 Mg Tablet PO 05/30/25 03:01 17.2 mg Q6H WEST Administration Sodium Chloride 10 ml 05/21/25 14:24 Sodium Chloride Flush 0.9% 10 Ml Syringe IVP PRN PRN NEEDED PER PROVIDER ORDERS Thiamine HCl 500 mg 05/27/25 06:30 05/29/25 05:43 Thiamine 100 Mg/1 Ml 2 Ml Mdv IM 05/29/25 15:00 500 mg Q8H WEST Administration Thiamine HCl 100 mg 05/30/25 09:00 Thiamine 100 Mg Tablet PO DAILY WEST Objective Vital Signs/Intake & Output Reviewed Vital Signs: Yes Vital Signs: Vital Signs x48h Temp Pulse Resp BP Pulse Ox 05/29/25 09:03 36.7 C 90 24 159/91 H 98 Intake & Output: Intake & Output 05/26/25 05/27/25 05/28/25 05/29/25 23:59 23:59 23:59 23:59 Intake Total 1610 / 1610 1180 / 1180 1128 / 1128 615 / 615 Balance 1610 / 1610 1180 / 1180 1128 / 1128 615 / 615 Objective General Appearance: positive No acute distress and Alert Eyes Bilateral: positive Normal inspection ENT: positive ENT inspection nml Neck: positive Nml inspection and Trachea midline Respiratory: positive No respiratory distress and Breath sounds nml Cardiovascular: positive Regular rate & rhythm, No murmur and No gallop Abdomen: positive Non-tender, No organomegaly and Nml bowel sounds Skin: positive Color nml, No rash, Warm and Dry Extremities: positive Non-tender, Full ROM, Nml appearance and No pedal edema Neurologic/Psychiatric: positive Sensation nml, Disoriented to place and Disoriented to time Lab Results 05/29/25 05:09 05/29/25 05:09 Other Labs: Lab Results x24hrs 05/29/25 Range/Units 05:09 WBC 6.3 (4.8-10.8) x10^3/uL RBC 4.68 (4.20-5.40) 10^6/uL Hgb 14.8 (12.0-16.0) g/dL Hct 43.6 (37.0-47.0) % MCV 93.2 (81.0-99.0) fL MCH 31.6 H (27.0-31.0) pg MCHC 33.9 (32.0-36.0) g/dL RDW 12.7 (12.0-15.0) % Plt Count 165 (130-450) 10^3/uL MPV 11.0 H (7.9-10.8) fL Neut # (Auto) 4.3 (1.5-6.6) 10^3/uL Lymph # (Auto) 1.3 L (1.5-3.5) 10^3/uL Mccreary # (Auto) 0.5 (0.0-1.0) 10^3/uL Eos # (Auto) 0.2 (0.0-0.7) 10^3/uL Baso # (Auto) 0.0 (0.0-0.1) 10^3/uL Absolute Nucleated RBC 0.00 x10^3/uL Nucleated RBC % 0.0 /100WBC Platelet Estimate NORMAL (130-450,000) (NORMAL) Platelet Morphology NORMAL APPEARANCE (NORMAL) Sodium 137 (135-145) mmol/L Potassium 3.9 (3.5-4.5) mmol/L Chloride 102 (101-111) mmol/L Carbon Dioxide 27 (21-32) mmol/L Anion Gap 8.0 (6-13) BUN 13 (6-20) mg/dL Creatinine 0.6 (0.6-1.3) mg/dL Estimated GFR (MDRD) 102 (>89) Glucose 117 H (74-104) mg/dL Calcium 9.6 (8.5-10.3) mg/dL Sepsis Event Note (H) Evaluation Current Stage of Sepsis: Ruled out Assessment/Plan Problem List (1) Altered mental status: Impression: Altered mentation likely secondary to polysubstance abuse UDS on presentation positive for opiates, amphetamine, methamphetamine, cocaine Patient was held in observation, and repeat CT and MRI were performed. MRI shows diffuse white matter hyperintense signal which may represent edema. Not the typical presentation of press Her altered mentation is not affected by her blood pressure, meaning it is not improved whenever her blood pressure is within normal limits I discussed her case with neurology on 05/26, who recommended LP, but stated that this is likely sequela of hypoxic event from drug use. I started her on thiamine 500 mg IM 3 times daily on 05 26, today is day 3 of that therapy, After which it will be discontinued We are attempting to reach out to her daughter for consent for LP, but she is transient at this time and no one is able to get in contact with her. Low suspicion for meningitis as she is freely moving her neck and for that matter her entire body, so I do not at this time think that we are justified in performing this emergently. Social work is continuing to attempt to reach the patient's daughter 05/29: Reducing thiamine dose to 100 mg daily as she has completed her high-dose burst. Still attempting to reach daughter, her phone is broken and we do not know where she is living at this time. Social work is checking the local drug rehab facilities to see if she has checked her self into rehab. We cannot move forward on medically clearing her until we can get consent for this LP. Qualifiers: Altered mental status type: stupor Qualified Code(s): R40.1 - Stupor (2) Polysubstance abuse: Impression: She has been in the hospital since 05/13/2025 UDS on presentation was positive for opiates, amphetamine, methamphetamine, cocaine She is likely out of the window for any acute withdrawal (3) Pubic bone fracture: Impression: X-ray hip on 05/25 shows moderately displaced right inferior pubic ramus fracture with extension in the medial acetabular column and suspicion for extension to the pelvic ring. Case was discussed with on-call orthopedist, who reports this is nonoperative. She is full weightbearing as tolerated and will need a walker at discharge. If her mentation improves, we will order PT eval
[2025-05-29] MEDS: APIXABAN 2.5 MG TABLET PO SCH (20:20)
[2025-05-30 05:14] LABS: HCT - HEMATOCRIT 42.5 % (37.0-47.0); HGB - HEMOGLOBIN 15.0 g/dL (12.0-16.0); MEAN PLATELET VOLUME 9.2 fL (7.9-10.8); NRBC ABSOLUTE COUNT (AUTO) 0.00 x10^3/uL; NUCLEATED RED BLOOD CELLS AUTO 0.0 /100WBC; PLT - PLATELET COUNT 351 10^3/uL (130-450); RED CELL DISTRIBUTION WIDTH 12.5 % (12.0-15.0)
[2025-05-30 05:30] LABS: BUN - BLOOD UREA NITROGEN 17.0 mg/dL (6-20); CARBON DIOXIDE - CO2 28.0 mmol/L (21-32); CREATININE 0.6 mg/dL (0.6-1.3); GFR - MDRD 102.0 (>89)
[2025-05-30] MEDS: THIAMINE 100 MG TABLET PO SCH (09:10)
[2025-05-30] MEDS: BISACODYL 10 MG SUPP PR ONE (09:11)
--- NOTE | 2025-05-30 13:52 | PROVIDER PROGRESS NOTE ---
Subjective Prog Note Date Prog Note Date: 05/30/25 Prog Note Time: 13:49 Subjective Pt reports feeling: No change Current Medications Current Medications Current Medications: Current Medications Generic Name Dose Route Start Last Admin Trade Name Falguni PRN Reason Stop Dose Admin Acetaminophen 650 mg 05/21/25 14:24 Acetaminophen 325 Mg Tablet PO Q4HR PRN Pain 1 to 4, or Fever Apixaban 2.5 mg 05/29/25 21:00 05/30/25 09:11 Apixaban 2.5 Mg Tablet PO 2.5 mg BID WEST Administration Docusate Sodium 250 - 500 mg 05/24/25 09:00 05/30/25 09:12 Docusate Sodium 250 Mg Capsule PO Not Given DAILY WEST Olanzapine 5 mg 05/26/25 12:04 05/30/25 09:11 Olanzapine Odt 5 Mg Tablet TL 5 mg DAILY PRN Administration Agitation Ondansetron HCl 4 mg 05/21/25 14:24 Ondansetron Odt 4 Mg Tablet TL Q6HR PRN Nausea / Vomiting Ondansetron HCl 4 mg 05/21/25 14:24 Ondansetron 4 Mg/2 Ml Vial IVP Q6HR PRN Nausea / Vomiting Polyethylene Glycol 17 gm 05/25/25 09:00 05/30/25 09:11 Polyethylene Glycol 3350 17 Gm Packet PO Not Given DAILY WEST Multivit/Folic Acid/Iron 1 tab 05/25/25 08:00 05/30/25 09:10 Vitamin Tablet PO 1 tab DAILYWM WEST Administration Prochlorperazine Edisylate 10 mg 05/21/25 14:24 Prochlorperazine 10 Mg/2 Ml Vial IVP Q6HR PRN Nausea / Vomiting Sodium Chloride 10 ml 05/21/25 14:24 Sodium Chloride Flush 0.9% 10 Ml Syringe IVP PRN PRN NEEDED PER PROVIDER ORDERS Thiamine HCl 100 mg 05/30/25 09:00 05/30/25 09:10 Thiamine 100 Mg Tablet PO 100 mg DAILY WEST Administration Objective Vital Signs/Intake & Output Reviewed Vital Signs: Yes Vital Signs: Vital Signs x48h Temp Pulse Resp BP Pulse Ox 05/30/25 07:33 36.6 C 98 24 142/92 H 97 Intake & Output: Intake & Output 05/27/25 05/28/25 05/29/25 05/30/25 23:59 23:59 23:59 23:59 Intake Total 1180 / 1180 1128 / 1128 2775 / 2775 940 / 940 Balance 1180 / 1180 1128 / 1128 2775 / 2775 940 / 940 Objective General Appearance: positive No acute distress and Other (Disoriented, reaching to the [place]) Eyes Bilateral: positive Normal inspection Respiratory: positive No respiratory distress; negative Wheezes Abdomen: positive No organomegaly; negative Guarding Skin: positive Color nml, No rash and Dry Extremities: positive Nml appearance and No pedal edema Neurologic/Psychiatric: positive Disoriented to place, Disoriented to time and Other (Non communicative, disoriented, confused) Lab Results 05/30/25 05:07 05/30/25 05:07 Other Labs: Lab Results x24hrs 05/30/25 Range/Units 05:07 WBC 5.5 (4.8-10.8) x10^3/uL RBC 4.71 (4.20-5.40) 10^6/uL Hgb 15.0 (12.0-16.0) g/dL Hct 42.5 (37.0-47.0) % MCV 90.2 (81.0-99.0) fL MCH 31.8 H (27.0-31.0) pg MCHC 35.3 (32.0-36.0) g/dL RDW 12.5 (12.0-15.0) % Plt Count 351 (130-450) 10^3/uL MPV 9.2 (7.9-10.8) fL Neut # (Auto) 3.4 (1.5-6.6) 10^3/uL Lymph # (Auto) 1.3 L (1.5-3.5) 10^3/uL Sullivan # (Auto) 0.6 (0.0-1.0) 10^3/uL Eos # (Auto) 0.2 (0.0-0.7) 10^3/uL Baso # (Auto) 0.0 (0.0-0.1) 10^3/uL Absolute Nucleated RBC 0.00 x10^3/uL Nucleated RBC % 0.0 /100WBC Sodium 135 (135-145) mmol/L Potassium 3.8 (3.5-4.5) mmol/L Chloride 101 (101-111) mmol/L Carbon Dioxide 28 (21-32) mmol/L Anion Gap 6.0 (6-13) BUN 17 (6-20) mg/dL Creatinine 0.6 (0.6-1.3) mg/dL Estimated GFR (MDRD) 102 (>89) Glucose 103 (74-104) mg/dL Calcium 9.7 (8.5-10.3) mg/dL Sepsis Event Note (H) Evaluation Current Stage of Sepsis: Ruled out Assessment/Plan Problem List (1) Altered mental status: Impression: Altered mentation likely secondary to polysubstance abuse UDS on presentation positive for opiates, amphetamine, methamphetamine, cocaine Patient was held in observation, and repeat CT and MRI were performed. MRI shows diffuse white matter hyperintense signal which may represent edema. Not the typical presentation of press Her altered mentation is not affected by her blood pressure, meaning it is not improved whenever her blood pressure is within normal limits I discussed her case with neurology on 05/26, who recommended LP, but stated that this is likely sequela of hypoxic event from drug use. I started her on thiamine 500 mg IM 3 times daily on 05 26, today is day 3 of that therapy, After which it will be discontinued We are attempting to reach out to her daughter for consent for LP, but she is transient at this time and no one is able to get in contact with her. Low suspicion for meningitis as she is freely moving her neck and for that matter her entire body, so I do not at this time think that we are justified in performing this emergently. Social work is continuing to attempt to reach the patient's daughter 05/29: Reducing thiamine dose to 100 mg daily as she has completed her high-dose burst. Still attempting to reach daughter, her phone is broken and we do not know where she is living at this time. Social work is checking the local drug rehab facilities to see if she has checked her self into rehab. We cannot move forward on medically clearing her until we can get consent for this LP. 05/30: No changes, cont plan as above Qualifiers: Altered mental status type: stupor Qualified Code(s): R40.1 - Stupor (2) Polysubstance abuse: Impression: She has been in the hospital since 05/13/2025 UDS on presentation was positive for opiates, amphetamine, methamphetamine, cocaine She is likely out of the window for any acute withdrawal (3) Pubic bone fracture: Impression: X-ray hip on 05/25 shows moderately displaced right inferior pubic ramus fracture with extension in the medial acetabular column and suspicion for extension to the pelvic ring. Case was discussed with on-call orthopedist, who reports this is nonoperative. She is full weightbearing as tolerated and will need a walker at discharge. If her mentation improves, we will order PT eval
[2025-05-31 04:54] LABS: HCT - HEMATOCRIT 41.3 % (37.0-47.0); HGB - HEMOGLOBIN 14.0 g/dL (12.0-16.0); MEAN PLATELET VOLUME 9.3 fL (7.9-10.8); NRBC ABSOLUTE COUNT (AUTO) 0.00 x10^3/uL; NUCLEATED RED BLOOD CELLS AUTO 0.0 /100WBC; PLT - PLATELET COUNT 358 10^3/uL (130-450); RED CELL DISTRIBUTION WIDTH 12.6 % (12.0-15.0)
[2025-05-31 05:13] LABS: BUN - BLOOD UREA NITROGEN 13.0 mg/dL (6-20); CARBON DIOXIDE - CO2 28.0 mmol/L (21-32); CREATININE 0.5 mg/dL (0.6-1.3); GFR - MDRD 126.0 (>89)
--- NOTE | 2025-05-31 13:57 | PROVIDER PROGRESS NOTE ---
Subjective Prog Note Date Prog Note Date: 05/31/25 Subjective Subjective: not able to answer my questions in a meaningful way. When I ask her what she is doing, she tells me she does not know. She tells me she does not know what day it is when I ask, and then does not answer other orientation questions. Current Medications Current Medications Current Medications: Current Medications Generic Name Dose Route Start Last Admin Trade Name Freq PRN Reason Stop Dose Admin Acetaminophen 650 mg 05/21/25 14:24 Acetaminophen 325 Mg Tablet PO Q4HR PRN Pain 1 to 4, or Fever Apixaban 2.5 mg 05/29/25 21:00 05/31/25 08:11 Apixaban 2.5 Mg Tablet PO 2.5 mg BID WEST Administration Docusate Sodium 250 - 500 mg 05/24/25 09:00 05/31/25 08:11 Docusate Sodium 250 Mg Capsule PO 250 mg DAILY WEST Administration Olanzapine 5 mg 05/26/25 12:04 05/30/25 09:11 Olanzapine Odt 5 Mg Tablet TL 5 mg DAILY PRN Administration Agitation Ondansetron HCl 4 mg 05/21/25 14:24 Ondansetron Odt 4 Mg Tablet TL Q6HR PRN Nausea / Vomiting Ondansetron HCl 4 mg 05/21/25 14:24 Ondansetron 4 Mg/2 Ml Vial IVP Q6HR PRN Nausea / Vomiting Polyethylene Glycol 17 gm 05/25/25 09:00 05/31/25 08:11 Polyethylene Glycol 3350 17 Gm Packet PO 17 gm DAILY WEST Administration Multivit/Folic Acid/Iron 1 tab 05/25/25 08:00 05/31/25 08:11 Vitamin Tablet PO 1 tab DAILYWM WEST Administration Prochlorperazine Edisylate 10 mg 05/21/25 14:24 Prochlorperazine 10 Mg/2 Ml Vial IVP Q6HR PRN Nausea / Vomiting Sodium Chloride 10 ml 05/21/25 14:24 Sodium Chloride Flush 0.9% 10 Ml Syringe IVP PRN PRN NEEDED PER PROVIDER ORDERS Thiamine HCl 100 mg 05/30/25 09:00 05/31/25 08:11 Thiamine 100 Mg Tablet PO 100 mg DAILY WEST Administration Objective Vital Signs/Intake & Output Reviewed Vital Signs: Yes Vital Signs: Vital Signs x48h Temp Pulse Resp BP Pulse Ox 05/31/25 07:29 36.6 C 100 16 132/92 H 96 Intake & Output: Intake & Output 05/28/25 05/29/25 05/30/25 05/31/25 23:59 23:59 23:59 23:59 Intake Total 1128 / 1128 2775 / 2775 1360 / 1360 860 / 860 Balance 1128 / 1128 2775 / 2775 1360 / 1360 860 / 860 Objective General Appearance: positive No acute distress and Other (Disoriented, reaching hands up in the air, with a small towel in her hands,twisting it. ) Eyes Bilateral: positive Normal inspection Respiratory: positive No respiratory distress; negative Wheezes Cardiovascular: positive Regular rate & rhythm Abdomen: positive No organomegaly; negative Guarding Skin: positive Color nml, No rash and Dry Extremities: positive Nml appearance and No pedal edema Neurologic/Psychiatric: positive Disoriented to place, Disoriented to time and Other (Non communicative, disoriented, confused) Lab Results 05/31/25 04:41 05/31/25 04:41 Other Labs: Lab Results x24hrs 05/31/25 Range/Units 04:41 WBC 5.6 (4.8-10.8) x10^3/uL RBC 4.53 (4.20-5.40) 10^6/uL Hgb 14.0 (12.0-16.0) g/dL Hct 41.3 (37.0-47.0) % MCV 91.2 (81.0-99.0) fL MCH 30.9 (27.0-31.0) pg MCHC 33.9 (32.0-36.0) g/dL RDW 12.6 (12.0-15.0) % Plt Count 358 (130-450) 10^3/uL MPV 9.3 (7.9-10.8) fL Neut # (Auto) 3.4 (1.5-6.6) 10^3/uL Lymph # (Auto) 1.4 L (1.5-3.5) 10^3/uL Alexander # (Auto) 0.5 (0.0-1.0) 10^3/uL Eos # (Auto) 0.2 (0.0-0.7) 10^3/uL Baso # (Auto) 0.0 (0.0-0.1) 10^3/uL Absolute Nucleated RBC 0.00 x10^3/uL Nucleated RBC % 0.0 /100WBC Sodium 138 (135-145) mmol/L Potassium 3.7 (3.5-4.5) mmol/L Chloride 103 (101-111) mmol/L Carbon Dioxide 28 (21-32) mmol/L Anion Gap 7.0 (6-13) BUN 13 (6-20) mg/dL Creatinine 0.5 L (0.6-1.3) mg/dL Estimated GFR (MDRD) 126 (>89) Glucose 104 (74-104) mg/dL Calcium 9.2 (8.5-10.3) mg/dL Sepsis Event Note (H) Evaluation Current Stage of Sepsis: Ruled out Assessment/Plan Problem List (1) Altered mental status: Impression: Altered mentation likely secondary to polysubstance abuse UDS on presentation positive for opiates, amphetamine, methamphetamine, cocaine Patient was held in observation, and repeat CT and MRI were performed. MRI shows diffuse white matter hyperintense signal which may represent edema. Not the typical presentation of press Her altered mentation is not affected by her blood pressure, meaning it is not improved whenever her blood pressure is within normal limits Case discussed with neurology on 05/26, who recommended LP, but stated that this is likely sequela of hypoxic event from drug use. thiamine 500 mg IM 3 times daily started on 05 26,for 3 days, now on po thiamine daily We are attempting to reach out to her daughter for consent for LP, but she is transient at this time and no one is able to get in contact with her. Low suspicion for meningitis as she is freely moving her neck and for that matter her entire body, so I do not at this time think that we are justified in performing this emergently. Social work is continuing to attempt to reach the patient's daughter- her status remains unchanged, and there is nothing that make any need for intervention acute. Qualifiers: Altered mental status type: stupor Qualified Code(s): R40.1 - Stupor (2) Polysubstance abuse: Impression: She has been in the hospital since 05/13/2025 UDS on presentation was positive for opiates, amphetamine, methamphetamine, cocaine She is likely out of the window for any acute withdrawal. She has not had any acute changes in her mental status for at least a week. (3) Pubic bone fracture: Impression: X-ray hip on 05/25 shows moderately displaced right inferior pubic ramus fracture with extension in the medial acetabular column and suspicion for extension to the pelvic ring. Case was discussed with on-call orthopedist, who reports this is nonoperative. She is full weightbearing as tolerated and will need a walker at discharge. If her mentation improves, we will order PT jesús, currently not able to particpate with PT. non billable rounding today.
--- NOTE | 2025-06-01 17:35 | PROVIDER PROGRESS NOTE ---
Subjective Prog Note Date Prog Note Date: 06/01/25 Subjective Subjective: remains non communicative. She responds "hi", and "yes" to my requests, but does not follow my commands, although see assents. Current Medications Current Medications Current Medications: Current Medications Generic Name Dose Route Start Last Admin Trade Name Falguni PRN Reason Stop Dose Admin Acetaminophen 650 mg 05/21/25 14:24 Acetaminophen 325 Mg Tablet PO Q4HR PRN Pain 1 to 4, or Fever Apixaban 2.5 mg 05/29/25 21:00 06/01/25 08:22 Apixaban 2.5 Mg Tablet PO 2.5 mg BID WEST Administration Docusate Sodium 250 - 500 mg 05/24/25 09:00 06/01/25 08:22 Docusate Sodium 250 Mg Capsule PO 500 mg DAILY WEST Administration Olanzapine 5 mg 05/26/25 12:04 05/30/25 09:11 Olanzapine Odt 5 Mg Tablet TL 5 mg DAILY PRN Administration Agitation Ondansetron HCl 4 mg 05/21/25 14:24 Ondansetron Odt 4 Mg Tablet TL Q6HR PRN Nausea / Vomiting Polyethylene Glycol 17 gm 05/25/25 09:00 06/01/25 08:23 Polyethylene Glycol 3350 17 Gm Packet PO 17 gm DAILY WEST Administration Multivit/Folic Acid/Iron 1 tab 05/25/25 08:00 06/01/25 08:22 Vitamin Tablet PO 1 tab DAILYWM WEST Administration Sodium Chloride 10 ml 05/21/25 14:24 Sodium Chloride Flush 0.9% 10 Ml Syringe IVP PRN PRN NEEDED PER PROVIDER ORDERS Thiamine HCl 100 mg 05/30/25 09:00 06/01/25 08:22 Thiamine 100 Mg Tablet PO 100 mg DAILY WEST Administration Objective Vital Signs/Intake & Output Reviewed Vital Signs: Yes Vital Signs: Vital Signs x48h Temp Pulse Resp BP Pulse Ox 06/01/25 16:03 36.6 C 89 20 131/91 H 97 Intake & Output: Intake & Output 05/29/25 05/30/25 05/31/25 06/01/25 23:59 23:59 23:59 23:59 Intake Total 2775 / 2775 1360 / 1360 2120 / 2120 800 / 800 Balance 2775 / 2775 1360 / 1360 2120 / 2120 800 / 800 Objective General Appearance: positive No acute distress and Other (Disoriented, reaching hands up in the air, with a blanket in her hands,twisting it. ) Eyes Bilateral: positive Normal inspection Respiratory: positive No respiratory distress; negative Wheezes Cardiovascular: positive Regular rate & rhythm Abdomen: positive No organomegaly; negative Guarding Skin: positive Color nml, No rash and Dry Extremities: positive Nml appearance and No pedal edema Neurologic/Psychiatric: positive Disoriented to place, Disoriented to time and Other (Non communicative, disoriented, confused) Lab Results 05/31/25 04:41 05/31/25 04:41 Other Labs: Lab Results x24hrs 05/31/25 Range/Units 04:41 WBC 5.6 (4.8-10.8) x10^3/uL RBC 4.53 (4.20-5.40) 10^6/uL Hgb 14.0 (12.0-16.0) g/dL Hct 41.3 (37.0-47.0) % MCV 91.2 (81.0-99.0) fL MCH 30.9 (27.0-31.0) pg MCHC 33.9 (32.0-36.0) g/dL RDW 12.6 (12.0-15.0) % Plt Count 358 (130-450) 10^3/uL MPV 9.3 (7.9-10.8) fL Neut # (Auto) 3.4 (1.5-6.6) 10^3/uL Lymph # (Auto) 1.4 L (1.5-3.5) 10^3/uL [place] # (Auto) 0.5 (0.0-1.0) 10^3/uL Eos # (Auto) 0.2 (0.0-0.7) 10^3/uL Baso # (Auto) 0.0 (0.0-0.1) 10^3/uL Absolute Nucleated RBC 0.00 x10^3/uL Nucleated RBC % 0.0 /100WBC Sodium 138 (135-145) mmol/L Potassium 3.7 (3.5-4.5) mmol/L Chloride 103 (101-111) mmol/L Carbon Dioxide 28 (21-32) mmol/L Anion Gap 7.0 (6-13) BUN 13 (6-20) mg/dL Creatinine 0.5 L (0.6-1.3) mg/dL Estimated GFR (MDRD) 126 (>89) Glucose 104 (74-104) mg/dL Calcium 9.2 (8.5-10.3) mg/dL Sepsis Event Note (H) Evaluation Current Stage of Sepsis: Ruled out Assessment/Plan Problem List (1) Altered mental status: Impression: Altered mentation likely secondary to polysubstance abuse UDS on presentation positive for opiates, amphetamine, methamphetamine, cocaine Patient was held in observation, and repeat CT and MRI were performed. MRI shows diffuse white matter hyperintense signal which may represent edema. Not the typical presentation of press Her altered mentation is not affected by her blood pressure, meaning it is not improved whenever her blood pressure is within normal limits Case discussed with neurology on 05/26, who recommended LP, but stated that this is likely sequela of hypoxic event from drug use. thiamine 500 mg IM 3 times daily started on 05 26,for 3 days, now on po thiamine daily We are attempting to reach out to her daughter for consent for LP, but she is transient at this time and no one is able to get in contact with her. Low suspicion for meningitis as she is freely moving her neck and for that matter her entire body, so I do not at this time think that we are justified in performing this emergently. Social work is continuing to attempt to reach the patient's daughter- her status remains unchanged, and there is nothing that make any need for intervention acute. Qualifiers: Altered mental status type: stupor Qualified Code(s): R40.1 - Stupor (2) Polysubstance abuse: Impression: She has been in the hospital since 05/13/2025 UDS on presentation was positive for opiates, amphetamine, methamphetamine, cocaine She is likely out of the window for any acute withdrawal. She has not had any acute changes in her mental status for at least a week. (3) Pubic bone fracture: Impression: X-ray hip on 05/25 shows moderately displaced right inferior pubic ramus fracture with extension in the medial acetabular column and suspicion for extension to the pelvic ring. Case was discussed with on-call orthopedist, who reports this is nonoperative. She is full weightbearing as tolerated and will need a walker at discharge. If her mentation improves, we will order PT jesús, currently not able to particpate with PT. non billable rounding today.
--- NOTE | 2025-06-02 15:00 | PROVIDER PROGRESS NOTE ---
Subjective Prog Note Date Prog Note Date: 06/02/25 Subjective Subjective: no change. She is doing exactly what she does every time I see her. She seems to move and shift in the bed all day. minimal concern for issues regarding sacral pressure. Current Medications Current Medications Current Medications: Current Medications Generic Name Dose Route Start Last Admin Trade Name Freq PRN Reason Stop Dose Admin Acetaminophen 650 mg 05/21/25 14:24 Acetaminophen 325 Mg Tablet PO Q4HR PRN Pain 1 to 4, or Fever Apixaban 2.5 mg 05/29/25 21:00 06/02/25 08:26 Apixaban 2.5 Mg Tablet PO 2.5 mg BID WEST Administration Docusate Sodium 250 - 500 mg 05/24/25 09:00 06/02/25 08:25 Docusate Sodium 250 Mg Capsule PO 250 mg DAILY WEST Administration Olanzapine 5 mg 05/26/25 12:04 05/30/25 09:11 Olanzapine Odt 5 Mg Tablet TL 5 mg DAILY PRN Administration Agitation Ondansetron HCl 4 mg 05/21/25 14:24 Ondansetron Odt 4 Mg Tablet TL Q6HR PRN Nausea / Vomiting Polyethylene Glycol 17 gm 05/25/25 09:00 06/02/25 08:26 Polyethylene Glycol 3350 17 Gm Packet PO 17 gm DAILY WEST Administration Multivit/Folic Acid/Iron 1 tab 05/25/25 08:00 06/02/25 08:26 Vitamin Tablet PO 1 tab DAILYWM WEST Administration Sodium Chloride 10 ml 05/21/25 14:24 Sodium Chloride Flush 0.9% 10 Ml Syringe IVP PRN PRN NEEDED PER PROVIDER ORDERS Thiamine HCl 100 mg 05/30/25 09:00 06/02/25 08:25 Thiamine 100 Mg Tablet PO 100 mg DAILY WEST Administration Objective Vital Signs/Intake & Output Reviewed Vital Signs: Yes Vital Signs: Vital Signs x48h Temp Pulse Resp BP Pulse Ox 06/02/25 07:39 36.6 C 98 18 112/83 99 Intake & Output: Intake & Output 05/30/25 05/31/25 06/01/25 06/02/25 23:59 23:59 23:59 23:59 Intake Total 1360 / 1360 2120 / 2120 1520 / 1520 1020 / 1020 Balance 1360 / 1360 2120 / 2120 1520 / 1520 1020 / 1020 Objective General Appearance: positive No acute distress and Other (Disoriented, reaching hands up in the air, with a washcloth in her hands,twisting it. ) Eyes Bilateral: positive Normal inspection Respiratory: positive No respiratory distress; negative Wheezes Cardiovascular: positive Regular rate & rhythm Abdomen: positive No organomegaly; negative Guarding Skin: positive Color nml, No rash and Dry Extremities: positive Nml appearance and No pedal edema Neurologic/Psychiatric: positive Disoriented to place, Disoriented to time and Other (Non communicative, disoriented, confused) Lab Results 05/31/25 04:41 05/31/25 04:41 Other Labs: Lab Results x24hrs 05/26/25 Range/Units 04:15 Whole Bld Vitamin B1 174.8 (66.5-200.0) nmol/L Sepsis Event Note (H) Evaluation Current Stage of Sepsis: Ruled out Assessment/Plan Problem List (1) Altered mental status: Impression: Altered mentation likely secondary to polysubstance abuse UDS on presentation positive for opiates, amphetamine, methamphetamine, cocaine Patient was held in observation, and repeat CT and MRI were performed. MRI shows diffuse white matter hyperintense signal which may represent edema. Not the typical presentation of press Her altered mentation is not affected by her blood pressure, meaning it is not improved whenever her blood pressure is within normal limits Case discussed with neurology on 05/26, who recommended LP, but stated that this is likely sequela of hypoxic event from drug use. thiamine 500 mg IM 3 times daily started on 05 26,for 3 days, now on po thiamine daily We are attempting to reach out to her daughter for consent for LP, but she is transient at this time and no one is able to get in contact with her. Low suspicion for meningitis as she is freely moving her neck and for that matter her entire body, so I do not at this time think that we are justified in performing this emergently. Social work is continuing to attempt to reach the patient's daughter- her status remains unchanged, and there is nothing that make any need for intervention acute. Flowsheets reviewed and it is noted that she independently ate 100% breakfast on 06/02. This is not the case. she requires someone to feed her. Qualifiers: Altered mental status type: stupor Qualified Code(s): R40.1 - Stupor (2) Polysubstance abuse: Impression: She has been in the hospital since 05/13/2025 UDS on presentation was positive for opiates, amphetamine, methamphetamine, cocaine She is likely out of the window for any acute withdrawal. She has not had any acute changes in her mental status for at least a week. (3) Pubic bone fracture: Impression: X-ray hip on 05/25 shows moderately displaced right inferior pubic ramus fracture with extension in the medial acetabular column and suspicion for extension to the pelvic ring. Case was discussed with on-call orthopedist, who reports this is nonoperative. She is full weightbearing as tolerated and will need a walker at discharge. If her mentation improves, we will order PT jesús, currently not able to particpate with PT. non billable rounding today.
--- NOTE | 2025-06-03 13:34 | PROVIDER PROGRESS NOTE ---
Subjective Prog Note Date Prog Note Date: 06/03/25 Subjective Subjective: She in in the chair today, but otherwise absolutely no change in status. Current Medications Current Medications Current Medications: Current Medications Generic Name Dose Route Start Last Admin Trade Name Fretobi PRN Reason Stop Dose Admin Acetaminophen 650 mg 05/21/25 14:24 Acetaminophen 325 Mg Tablet PO Q4HR PRN Pain 1 to 4, or Fever Apixaban 2.5 mg 05/29/25 21:00 06/03/25 08:45 Apixaban 2.5 Mg Tablet PO 2.5 mg BID WEST Administration Docusate Sodium 250 - 500 mg 05/24/25 09:00 06/03/25 08:45 Docusate Sodium 250 Mg Capsule PO 250 mg DAILY WEST Administration Olanzapine 5 mg 05/26/25 12:04 05/30/25 09:11 Olanzapine Odt 5 Mg Tablet TL 5 mg DAILY PRN Administration Agitation Ondansetron HCl 4 mg 05/21/25 14:24 Ondansetron Odt 4 Mg Tablet TL Q6HR PRN Nausea / Vomiting Polyethylene Glycol 17 gm 05/25/25 09:00 06/03/25 08:45 Polyethylene Glycol 3350 17 Gm Packet PO 17 gm DAILY WEST Administration Multivit/Folic Acid/Iron 1 tab 05/25/25 08:00 06/03/25 08:45 Vitamin Tablet PO 1 tab DAILYWM WEST Administration Sodium Chloride 10 ml 05/21/25 14:24 Sodium Chloride Flush 0.9% 10 Ml Syringe IVP PRN PRN NEEDED PER PROVIDER ORDERS Thiamine HCl 100 mg 05/30/25 09:00 06/03/25 08:45 Thiamine 100 Mg Tablet PO 100 mg DAILY WEST Administration Objective Vital Signs/Intake & Output Reviewed Vital Signs: Yes Vital Signs: Vital Signs x48h Temp Pulse Resp BP Pulse Ox 06/03/25 09:40 36.7 C 97 24 148/92 H 96 Intake & Output: Intake & Output 05/31/25 06/01/25 06/02/25 06/03/25 23:59 23:59 23:59 23:59 Intake Total 2119 1520 / 1520 1420 / 1420 1020 / 1020 Balance 2119 1520 / 1520 1420 / 1420 1020 / 1020 Objective General Appearance: positive No acute distress and Other (Disoriented, reaching hands up in the air, with a washcloth in her hands,twisting it. ) Eyes Bilateral: positive Normal inspection Respiratory: positive No respiratory distress; negative Wheezes Cardiovascular: positive Regular rate & rhythm Abdomen: positive No organomegaly; negative Guarding Skin: positive Color nml, No rash and Dry Extremities: positive Nml appearance and No pedal edema Neurologic/Psychiatric: positive Disoriented to place, Disoriented to time and Other (Non communicative, disoriented, confused) Lab Results 05/31/25 04:41 05/31/25 04:41 Other Labs: Lab Results x24hrs 05/26/25 Range/Units 04:15 Whole Bld Vitamin B1 174.8 (66.5-200.0) nmol/L Sepsis Event Note (H) Evaluation Current Stage of Sepsis: Ruled out Assessment/Plan Problem List (1) Altered mental status: Impression: Altered mentation likely secondary to polysubstance abuse UDS on presentation positive for opiates, amphetamine, methamphetamine, cocaine Patient was held in observation, and repeat CT and MRI were performed. MRI shows diffuse white matter hyperintense signal which may represent edema. Not the typical presentation of press Her altered mentation is not affected by her blood pressure, meaning it is not improved whenever her blood pressure is within normal limits Case discussed with neurology on 05/26, who recommended LP, but stated that this is likely sequela of hypoxic event from drug use. thiamine 500 mg IM 3 times daily started on 05 26,for 3 days, now on po thiamine daily We are attempting to reach out to her daughter for consent for LP, but she is transient at this time and no one is able to get in contact with her. Low suspicion for meningitis as she is freely moving her neck and for that matter her entire body, so I do not at this time think that we are justified in performing this emergently. Social work is continuing to attempt to reach the patient's daughter- her status remains unchanged, and there is nothing that make any need for intervention acute. Flowsheets reviewed and it is noted that she independently ate 100% breakfast on 06/02. This is not the case. she requires someone to feed her. Qualifiers: Altered mental status type: stupor Qualified Code(s): R40.1 - Stupor (2) Polysubstance abuse: Impression: She has been in the hospital since 05/13/2025 UDS on presentation was positive for opiates, amphetamine, methamphetamine, cocaine She is likely out of the window for any acute withdrawal. She has not had any acute changes in her mental status for at least a week. (3) Pubic bone fracture: Impression: X-ray hip on 05/25 shows moderately displaced right inferior pubic ramus fracture with extension in the medial acetabular column and suspicion for extension to the pelvic ring. Case was discussed with on-call orthopedist, who reports this is nonoperative. She is full weightbearing as tolerated and will need a walker at discharge. If her mentation improves, we will order PT eval, currently not able to particpate with PT. non billable rounding today.
[2025-06-04] MEDS: CHOLECALCIFEROL 25 MCG TABLET PO SCH (08:30)
[2025-06-04] MEDS: CALCIUM CARBONATE CHEW 500 MG TABLET PO SCH (08:30)
--- NOTE | 2025-06-04 15:54 | PROVIDER PROGRESS NOTE ---
Subjective Prog Note Date Prog Note Date: 06/04/25 Subjective Subjective: today, for the first time, when I come in, she is not holding her extremities in the air. When I ask orientation questions she responds "I do not know". This is an improvement. at some of my questions, she laughs, but she is not able to give me an answer. Current Medications Current Medications Current Medications: Current Medications Generic Name Dose Route Start Last Admin Trade Name Freq PRN Reason Stop Dose Admin Acetaminophen 650 mg 05/21/25 14:24 Acetaminophen 325 Mg Tablet PO Q4HR PRN Pain 1 to 4, or Fever Apixaban 2.5 mg 05/29/25 21:00 06/04/25 08:30 Apixaban 2.5 Mg Tablet PO 2.5 mg BID WEST Administration Calcium Carbonate/Glycine 500 mg 06/04/25 09:00 06/04/25 08:30 Calcium Carbonate Chew 500 Mg Tablet PO 500 mg DAILY WEST Administration Cholecalciferol 25 mcg 06/04/25 09:00 06/04/25 08:30 Cholecalciferol 25 Mcg Tablet PO 25 mcg DAILY WEST Administration Docusate Sodium 250 - 500 mg 05/24/25 09:00 06/04/25 08:31 Docusate Sodium 250 Mg Capsule PO 250 mg DAILY WEST Administration Olanzapine 5 mg 05/26/25 12:04 05/30/25 09:11 Olanzapine Odt 5 Mg Tablet TL 5 mg DAILY PRN Administration Agitation Ondansetron HCl 4 mg 05/21/25 14:24 Ondansetron Odt 4 Mg Tablet TL Q6HR PRN Nausea / Vomiting Polyethylene Glycol 17 gm 05/25/25 09:00 06/04/25 08:30 Polyethylene Glycol 3350 17 Gm Packet PO 17 gm DAILY WEST Administration Multivit/Folic Acid/Iron 1 tab 05/25/25 08:00 06/04/25 08:29 Vitamin Tablet PO 1 tab DAILYWM WEST Administration Sodium Chloride 10 ml 05/21/25 14:24 Sodium Chloride Flush 0.9% 10 Ml Syringe IVP PRN PRN NEEDED PER PROVIDER ORDERS Thiamine HCl 100 mg 05/30/25 09:00 06/04/25 08:30 Thiamine 100 Mg Tablet PO 100 mg DAILY WEST Administration Objective Vital Signs/Intake & Output Reviewed Vital Signs: Yes Vital Signs: Vital Signs x48h Temp Pulse Resp BP Pulse Ox 06/04/25 09:08 36.7 C 89 20 137/94 H 98 Intake & Output: Intake & Output 06/01/25 06/02/25 06/03/25 06/04/25 23:59 23:59 23:59 23:59 Intake Total 1520 / 1520 1420 / 1420 1440 / 1440 2059 Balance 1520 / 1520 1420 / 1420 1440 / 1440 2059 Objective General Appearance: positive No acute distress and Other ( ) Eyes Bilateral: positive Normal inspection ENT: positive ENT inspection nml Respiratory: positive No respiratory distress; negative Wheezes Cardiovascular: positive Regular rate & rhythm Abdomen: positive No organomegaly; negative Guarding Skin: positive Color nml, No rash and Dry Extremities: positive Nml appearance and No pedal edema Neurologic/Psychiatric: positive Disoriented to place, Disoriented to time and Other ( disoriented, confused) Lab Results 05/31/25 04:41 05/31/25 04:41 Other Labs: Lab Results x24hrs 05/26/25 Range/Units 04:15 Whole Bld Vitamin B1 174.8 (66.5-200.0) nmol/L Sepsis Event Note (H) Evaluation Current Stage of Sepsis: Ruled out Assessment/Plan Problem List (1) Altered mental status: Impression: Altered mentation likely secondary to polysubstance abuse UDS on presentation positive for opiates, amphetamine, methamphetamine, cocaine Patient was held in observation, and repeat CT and MRI were performed. MRI shows diffuse white matter hyperintense signal which may represent edema. Not the typical presentation of press Her altered mentation is not affected by her blood pressure, meaning it is not improved whenever her blood pressure is within normal limits Case discussed with neurology on 05/26, who recommended LP, but stated that this is likely sequela of hypoxic event from drug use. thiamine 500 mg IM 3 times daily started on 05 26,for 3 days, now on po thiamine daily We are attempting to reach out to her daughter for consent for LP, but she is transient at this time and no one is able to get in contact with her. Low suspicion for meningitis as she is freely moving her neck and for that matter her entire body, so I do not at this time think that we are justified in performing this emergently. Social work is continuing to attempt to reach the patient's daughter- her status remains unchanged, and there is nothing that make any need for intervention acute. Flowsheets reviewed and it is noted that she independently ate 100% breakfast on 06/02. This is not the case. she requires someone to feed her. I have changed her to puree diet. She continues to eat well. Qualifiers: Altered mental status type: stupor Qualified Code(s): R40.1 - Stupor (2) Polysubstance abuse: Impression: She has been in the hospital since 05/13/2025 UDS on presentation was positive for opiates, amphetamine, methamphetamine, cocaine She is likely out of the window for any acute withdrawal. She has not had any acute changes in her mental status for at least a week. (3) Pubic bone fracture: Impression: X-ray hip on 05/25 shows moderately displaced right inferior pubic ramus fracture with extension in the medial acetabular column and suspicion for extension to the pelvic ring. Case was discussed with on-call orthopedist, who reports this is nonoperative. She is full weightbearing as tolerated and will need a walker at discharge. If her mentation improves, we will order PT jesús, currently not able to particpate with PT. non billable rounding today.
--- NOTE | 2025-06-05 14:01 | PROVIDER PROGRESS NOTE ---
Subjective Prog Note Date Prog Note Date: 06/05/25 Subjective Subjective: She is non verbal today. looks at me when I ask questions, but does not answer me. She has her arms in the air with a washcloth in her hands, but her legs are down today. Current Medications Current Medications Current Medications: Current Medications Generic Name Dose Route Start Last Admin Trade Name Falguni PRN Reason Stop Dose Admin Acetaminophen 650 mg 05/21/25 14:24 Acetaminophen 325 Mg Tablet PO Q4HR PRN Pain 1 to 4, or Fever Apixaban 2.5 mg 05/29/25 21:00 06/05/25 09:07 Apixaban 2.5 Mg Tablet PO 2.5 mg BID WEST Administration Calcium Carbonate/Glycine 500 mg 06/04/25 09:00 06/05/25 09:07 Calcium Carbonate Chew 500 Mg Tablet PO 500 mg DAILY WEST Administration Cholecalciferol 25 mcg 06/04/25 09:00 06/05/25 09:07 Cholecalciferol 25 Mcg Tablet PO 25 mcg DAILY WEST Administration Docusate Sodium 250 - 500 mg 05/24/25 09:00 06/05/25 09:07 Docusate Sodium 250 Mg Capsule PO 250 mg DAILY WEST Administration Polyethylene Glycol 17 gm 05/25/25 09:00 06/05/25 09:07 Polyethylene Glycol 3350 17 Gm Packet PO 17 gm DAILY WEST Administration Multivit/Folic Acid/Iron 1 tab 05/25/25 08:00 06/05/25 09:07 Vitamin Tablet PO 1 tab DAILYWM WEST Administration Sodium Chloride 10 ml 05/21/25 14:24 Sodium Chloride Flush 0.9% 10 Ml Syringe IVP PRN PRN NEEDED PER PROVIDER ORDERS Thiamine HCl 100 mg 05/30/25 09:00 06/05/25 09:07 Thiamine 100 Mg Tablet PO 100 mg DAILY WEST Administration Objective Vital Signs/Intake & Output Reviewed Vital Signs: Yes Vital Signs: Vital Signs x48h Temp Pulse Resp BP Pulse Ox 06/05/25 09:05 36.5 C 103 H 18 130/84 98 Intake & Output: Intake & Output 06/02/25 06/03/25 06/04/25 06/05/25 23:59 23:59 23:59 23:59 Intake Total 1420 / 1420 1440 / 1440 2480 / 2480 100 / 100 Balance 1420 / 1420 1440 / 1440 2480 / 2480 100 / 100 Objective General Appearance: positive No acute distress Eyes Bilateral: positive Normal inspection ENT: positive ENT inspection nml Respiratory: positive No respiratory distress; negative Wheezes Cardiovascular: positive Regular rate & rhythm Abdomen: positive No organomegaly; negative Guarding Skin: positive Color nml, No rash and Dry Extremities: positive Nml appearance and No pedal edema Neurologic/Psychiatric: positive Other (non verbal today) Lab Results 05/31/25 04:41 05/31/25 04:41 Other Labs: Lab Results x24hrs 05/26/25 Range/Units 04:15 Whole Bld Vitamin B1 174.8 (66.5-200.0) nmol/L Sepsis Event Note (H) Evaluation Current Stage of Sepsis: Ruled out Assessment/Plan Problem List (1) Altered mental status: Impression: Altered mentation likely secondary to polysubstance abuse UDS on presentation positive for opiates, amphetamine, methamphetamine, cocaine Patient was held in observation, and repeat CT and MRI were performed. MRI shows diffuse white matter hyperintense signal which may represent edema. Not the typical presentation of press Her altered mentation is not affected by her blood pressure, meaning it is not improved whenever her blood pressure is within normal limits Case discussed with neurology on 05/26, who recommended LP, but stated that this is likely sequela of hypoxic event from drug use. thiamine 500 mg IM 3 times daily started on 05 26,for 3 days, now on po thiamine daily We are attempting to reach out to her daughter for consent for LP, but she is transient at this time and no one is able to get in contact with her. Low suspicion for meningitis as she is freely moving her neck and for that matter her entire body, so I do not at this time think that we are justified in performing this emergently. Social work is continuing to attempt to reach the patient's daughter- her status remains unchanged, and there is nothing that make any need for intervention acute. Flowsheets reviewed and it is noted that she independently ate 100% breakfast on 06/02. This is not the case. she requires someone to feed her. I have changed her to puree diet. She continues to eat well. Qualifiers: Altered mental status type: stupor Qualified Code(s): R40.1 - Stupor (2) Polysubstance abuse: Impression: She has been in the hospital since 05/13/2025 UDS on presentation was positive for opiates, amphetamine, methamphetamine, cocaine She is likely out of the window for any acute withdrawal. She has not had any acute changes in her mental status for at least a week. (3) Pubic bone fracture: Impression: X-ray hip on 05/25 shows moderately displaced right inferior pubic ramus fracture with extension in the medial acetabular column and suspicion for extension to the pelvic ring. Case was discussed with on-call orthopedist, who reports this is nonoperative. She is full weightbearing as tolerated and will need a walker at discharge. If her mentation improves, we will order PT eval, currently not able to particpate with PT. non billable rounding today.
--- NOTE | 2025-06-06 13:31 | PROVIDER PROGRESS NOTE ---
Subjective Prog Note Date Prog Note Date: 06/06/25 Subjective Subjective: She responds "hi" to me today. The second time I asked her what day it is, she tells me " I don't know" but otherwise no responses. Laying in bed, and her extremities are relaxed. Current Medications Current Medications Current Medications: Current Medications Generic Name Dose Route Start Last Admin Trade Name Falguni PRN Reason Stop Dose Admin Acetaminophen 650 mg 05/21/25 14:24 Acetaminophen 325 Mg Tablet PO Q4HR PRN Pain 1 to 4, or Fever Apixaban 2.5 mg 05/29/25 21:00 06/06/25 08:12 Apixaban 2.5 Mg Tablet PO 2.5 mg BID WEST Administration Calcium Carbonate/Glycine 500 mg 06/04/25 09:00 06/06/25 08:12 Calcium Carbonate Chew 500 Mg Tablet PO 500 mg DAILY WEST Administration Cholecalciferol 25 mcg 06/04/25 09:00 06/06/25 08:12 Cholecalciferol 25 Mcg Tablet PO 25 mcg DAILY WEST Administration Docusate Sodium 250 - 500 mg 05/24/25 09:00 06/06/25 08:12 Docusate Sodium 250 Mg Capsule PO 250 mg DAILY WEST Administration Polyethylene Glycol 17 gm 05/25/25 09:00 06/06/25 08:11 Polyethylene Glycol 3350 17 Gm Packet PO 17 gm DAILY WEST Administration Multivit/Folic Acid/Iron 1 tab 05/25/25 08:00 06/06/25 08:12 Vitamin Tablet PO 1 tab DAILYWM WEST Administration Sodium Chloride 10 ml 05/21/25 14:24 Sodium Chloride Flush 0.9% 10 Ml Syringe IVP PRN PRN NEEDED PER PROVIDER ORDERS Thiamine HCl 100 mg 05/30/25 09:00 06/06/25 08:12 Thiamine 100 Mg Tablet PO 100 mg DAILY WEST Administration Objective Vital Signs/Intake & Output Reviewed Vital Signs: Yes Vital Signs: Vital Signs x48h Temp Pulse Resp BP Pulse Ox 06/06/25 12:10 36.5 C 87 16 144/86 H 94 Intake & Output: Intake & Output 06/03/25 06/04/25 06/05/25 06/06/25 23:59 23:59 23:59 23:59 Intake Total 1440 / 1440 2480 / 2480 340 / 340 650 / 650 Balance 1440 / 1440 2480 / 2480 340 / 340 650 / 650 Objective General Appearance: positive No acute distress Eyes Bilateral: positive Normal inspection ENT: positive ENT inspection nml Respiratory: positive No respiratory distress Cardiovascular: positive Regular rate & rhythm Abdomen: positive No distention Skin: positive Color nml, No rash and Dry Extremities: positive Nml appearance and No pedal edema Neurologic/Psychiatric: positive Other (not oriented. ) Lab Results 05/31/25 04:41 05/31/25 04:41 Other Labs: Lab Results x24hrs 05/26/25 Range/Units 04:15 Whole Bld Vitamin B1 174.8 (66.5-200.0) nmol/L Sepsis Event Note (H) Evaluation Current Stage of Sepsis: Ruled out Assessment/Plan Problem List (1) Altered mental status: Impression: Altered mentation likely secondary to polysubstance abuse UDS on presentation positive for opiates, amphetamine, methamphetamine, cocaine Patient was held in observation, and repeat CT and MRI were performed. MRI shows diffuse white matter hyperintense signal which may represent edema. Not the typical presentation of press Her altered mentation is not affected by her blood pressure, meaning it is not improved whenever her blood pressure is within normal limits Case discussed with neurology on 05/26, who recommended LP, but stated that this is likely sequela of hypoxic event from drug use. thiamine 500 mg IM 3 times daily started on 05 26,for 3 days, now on po thiamine daily Daughter Ina called this afternoon, and made contact with RN. I also spoke with her, at this point, her mother's condition is sub acute. No need for interventions. 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 She is willing to assist with this, but neither she, nor her mother have a safe place to live. I have let social work know that Ina is available, and SW will reach out to her on 06/07. Flowsheets reviewed and it is noted that she independently ate 100% breakfast on 06/02. This is not the case. she requires someone to feed her. I have changed her to puree diet. She continues to eat well. Qualifiers: Altered mental status type: stupor Qualified Code(s): R40.1 - Stupor (2) Polysubstance abuse: Impression: She has been in the hospital since 05/13/2025 UDS on presentation was positive for opiates, amphetamine, methamphetamine, cocaine She is likely out of the window for any acute withdrawal. She has not had any acute changes in her mental status for at least a week. (3) Pubic bone fracture: Impression: X-ray hip on 05/25 shows moderately displaced right inferior pubic ramus fracture with extension in the medial acetabular column and suspicion for extension to the pelvic ring. Case was discussed with on-call orthopedist, who reports this is nonoperative. She is full weightbearing as tolerated and will need a walker at discharge. If her mentation improves, we will order PT jesús, currently not able to particpate with PT. non billable rounding today.
[2025-06-07] MEDS: ACETAMINOPHEN 325 MG TABLET PO PRN (00:59)
--- NOTE | 2025-06-07 15:16 | PROVIDER PROGRESS NOTE ---
Subjective Prog Note Date Prog Note Date: 06/07/25 Subjective Subjective: I ask "Can you tell me your name?" and she says "yes" but does not answer. occasionally giggles a bit at my questions. Daughter had called yesterday, social work to return her call today. I spoke with daughter yesterday, answered her questions. Her questions are mainly with regards to disposition. Current Medications Current Medications Current Medications: Current Medications Generic Name Dose Route Start Last Admin Trade Name Falguni PRN Reason Stop Dose Admin Acetaminophen 650 mg 05/21/25 14:24 06/07/25 12:02 Acetaminophen 325 Mg Tablet PO 650 mg Q4HR PRN Administration Pain 1 to 4, or Fever Apixaban 2.5 mg 05/29/25 21:00 06/07/25 08:09 Apixaban 2.5 Mg Tablet PO 2.5 mg BID WEST Administration Calcium Carbonate/Glycine 500 mg 06/04/25 09:00 06/07/25 08:09 Calcium Carbonate Chew 500 Mg Tablet PO 500 mg DAILY WEST Administration Cholecalciferol 25 mcg 06/04/25 09:00 06/07/25 08:09 Cholecalciferol 25 Mcg Tablet PO 25 mcg DAILY WEST Administration Docusate Sodium 250 - 500 mg 05/24/25 09:00 06/07/25 08:09 Docusate Sodium 250 Mg Capsule PO Not Given DAILY WEST Polyethylene Glycol 17 gm 05/25/25 09:00 06/07/25 08:09 Polyethylene Glycol 3350 17 Gm Packet PO Not Given DAILY WEST Multivit/Folic Acid/Iron 1 tab 05/25/25 08:00 06/07/25 08:09 Vitamin Tablet PO 1 tab DAILYWM WEST Administration Sodium Chloride 10 ml 05/21/25 14:24 Sodium Chloride Flush 0.9% 10 Ml Syringe IVP PRN PRN NEEDED PER PROVIDER ORDERS Thiamine HCl 100 mg 05/30/25 09:00 06/07/25 08:09 Thiamine 100 Mg Tablet PO 100 mg DAILY WEST Administration Objective Vital Signs/Intake & Output Reviewed Vital Signs: Yes Vital Signs: Vital Signs x48h Temp Pulse Resp BP Pulse Ox 06/07/25 10:41 36.5 C 81 18 139/78 H 94 Intake & Output: Intake & Output 06/04/25 06/05/25 06/06/25 06/07/25 23:59 23:59 23:59 23:59 Intake Total 2480 / 2480 340 / 340 1130 / 1130 960 / 960 Balance 2480 / 2480 340 / 340 1130 / 1130 960 / 960 Objective General Appearance: positive No acute distress Eyes Bilateral: positive Normal inspection ENT: positive ENT inspection nml Respiratory: positive No respiratory distress and Breath sounds nml Cardiovascular: positive Regular rate & rhythm Abdomen: positive No distention Skin: positive Color nml, No rash and Dry Extremities: positive Nml appearance and No pedal edema Neurologic/Psychiatric: positive Other (not oriented. ) Lab Results 05/31/25 04:41 05/31/25 04:41 Other Labs: Lab Results x24hrs 05/26/25 Range/Units 04:15 Whole Bld Vitamin B1 174.8 (66.5-200.0) nmol/L Sepsis Event Note (H) Evaluation Current Stage of Sepsis: Ruled out Assessment/Plan Problem List (1) Altered mental status: Impression: Altered mentation likely secondary to polysubstance abuse UDS on presentation positive for opiates, amphetamine, methamphetamine, cocaine Patient was held in observation, and repeat CT and MRI were performed. MRI shows diffuse white matter hyperintense signal which may represent edema. Not the typical presentation of press Her altered mentation is not affected by her blood pressure, meaning it is not improved whenever her blood pressure is within normal limits Case discussed with neurology on 05/26, who recommended LP, but stated that this is likely sequela of hypoxic event from drug use. thiamine 500 mg IM 3 times daily started on 05 26,for 3 days, now on po thiamine daily 06/06 Daughter Ina made contact with RN. I also spoke with her, at this point, her mother's condition is sub acute. No need for interventions. Ina is aware her mother needs administrative volunteer care. She is willing to assist with this, but neither she, nor her mother have a safe place to live. I have let social work know that Ina is available, and SW will reach out to her on 06/07. Flowsheets reviewed and it is noted that she independently ate 100% breakfast on 06/02. This is not the case. she requires someone to feed her. I have changed her to puree diet. She continues to eat well. I am encouraging out of bed to chair at least BID, so that she maintains her strength. Qualifiers: Altered mental status type: stupor Qualified Code(s): R40.1 - Stupor (2) Polysubstance abuse: Impression: She has been in the hospital since 05/13/2025 UDS on presentation was positive for opiates, amphetamine, methamphetamine, cocaine She is likely out of the window for any acute withdrawal. She has not had any acute changes in her mental status for at least a week. (3) Pubic bone fracture: Impression: X-ray hip on 05/25 shows moderately displaced right inferior pubic ramus fracture with extension in the medial acetabular column and suspicion for extension to the pelvic ring. Case was discussed with on-call orthopedist, who reports this is nonoperative. She is full weightbearing as tolerated and will need a walker at discharge. If her mentation improves, we will order PT jesús, currently not able to particpate with PT. non billable rounding today.
--- NOTE | 2025-06-08 13:35 | PROVIDER PROGRESS NOTE ---
Subjective Prog Note Date Prog Note Date: 06/08/25 Subjective Subjective: non verbal today. Giggles a bit when I ask her name. She just had a BM. Current Medications Current Medications Current Medications: Current Medications Generic Name Dose Route Start Last Admin Trade Name Falguni PRN Reason Stop Dose Admin Acetaminophen 650 mg 05/21/25 14:24 06/08/25 08:13 Acetaminophen 325 Mg Tablet PO 650 mg Q4HR PRN Administration Pain 1 to 4, or Fever Apixaban 2.5 mg 05/29/25 21:00 06/08/25 08:13 Apixaban 2.5 Mg Tablet PO 2.5 mg BID WEST Administration Calcium Carbonate/Glycine 500 mg 06/04/25 09:00 06/08/25 08:13 Calcium Carbonate Chew 500 Mg Tablet PO 500 mg DAILY WEST Administration Cholecalciferol 25 mcg 06/04/25 09:00 06/08/25 08:13 Cholecalciferol 25 Mcg Tablet PO 25 mcg DAILY WEST Administration Docusate Sodium 250 - 500 mg 05/24/25 09:00 06/08/25 08:13 Docusate Sodium 250 Mg Capsule PO Not Given DAILY WEST Polyethylene Glycol 17 gm 05/25/25 09:00 06/08/25 08:12 Polyethylene Glycol 3350 17 Gm Packet PO 17 gm DAILY WEST Administration Multivit/Folic Acid/Iron 1 tab 05/25/25 08:00 06/08/25 08:13 Vitamin Tablet PO 1 tab DAILYWM WEST Administration Sodium Chloride 10 ml 05/21/25 14:24 Sodium Chloride Flush 0.9% 10 Ml Syringe IVP PRN PRN NEEDED PER PROVIDER ORDERS Thiamine HCl 100 mg 05/30/25 09:00 06/08/25 08:13 Thiamine 100 Mg Tablet PO 100 mg DAILY WEST Administration Objective Vital Signs/Intake & Output Reviewed Vital Signs: Yes Vital Signs: Vital Signs x48h Temp Pulse Resp BP Pulse Ox 06/08/25 09:50 36.9 C 110 H 16 130/92 H 98 Intake & Output: Intake & Output 06/05/25 06/06/25 06/07/25 06/08/25 23:59 23:59 23:59 23:59 Intake Total 340 / 340 1130 / 1130 1080 / 1080 360 / 360 Balance 340 / 340 1130 / 1130 1080 / 1080 360 / 360 Objective General Appearance: positive No acute distress Eyes Bilateral: positive Normal inspection ENT: positive ENT inspection nml Neck: positive Nml inspection Respiratory: positive No respiratory distress and Breath sounds nml Cardiovascular: positive Regular rate & rhythm Abdomen: positive No distention Skin: positive Color nml, No rash and Dry Extremities: positive Nml appearance and No pedal edema Neurologic/Psychiatric: positive Other (not oriented. ) Lab Results 05/31/25 04:41 05/31/25 04:41 Other Labs: Lab Results x24hrs 05/26/25 Range/Units 04:15 Whole Bld Vitamin B1 174.8 (66.5-200.0) nmol/L Sepsis Event Note (H) Evaluation Current Stage of Sepsis: Ruled out Assessment/Plan Problem List (1) Altered mental status: Impression: Altered mentation likely secondary to polysubstance abuse UDS on presentation positive for opiates, amphetamine, methamphetamine, cocaine Patient was held in observation, and repeat CT and MRI were performed. MRI shows diffuse white matter hyperintense signal which may represent edema. Not the typical presentation of press Her altered mentation is not affected by her blood pressure, meaning it is not improved whenever her blood pressure is within normal limits Case discussed with neurology on 05/26, who recommended LP, but stated that this is likely sequela of hypoxic event from drug use. thiamine 500 mg IM 3 times daily started on 05 26,for 3 days, now on po thiamine daily 06/06 Daughter Ina made contact with RN. I also spoke with her, at this point, her mother's condition is sub acute. No need for interventions. Ina is aware her mother needs long-term care. She is willing to assist with this, but neither she, nor her mother have a safe place to live. I have let social work know that Ina is available, and SW will reach out to her on 06/07. Flowsheets reviewed and it is noted that she independently ate 100% breakfast on 06/02. This is not the case. she requires someone to feed her. I have changed her to puree diet. She continues to eat well. I am encouraging out of bed to chair at least BID, so that she maintains her strength. Qualifiers: Altered mental status type: stupor Qualified Code(s): R40.1 - Stupor (2) Polysubstance abuse: Impression: She has been in the hospital since 05/13/2025 UDS on presentation was positive for opiates, amphetamine, methamphetamine, cocaine She is likely out of the window for any acute withdrawal. She has not had any acute changes in her mental status for at least a week. (3) Pubic bone fracture: Impression: X-ray hip on 05/25 shows moderately displaced right inferior pubic ramus fracture with extension in the medial acetabular column and suspicion for extension to the pelvic ring. Case was discussed with on-call orthopedist, who reports this is nonoperative. She is full weightbearing as tolerated and will need a walker at discharge. If her mentation improves, we will order PT jesús, currently not able to particpate with PT. non billable rounding today.
--- NOTE | 2025-06-09 15:20 | PROVIDER PROGRESS NOTE ---
Subjective Prog Note Date Prog Note Date: 06/09/25 Subjective Subjective: no change. Her daughter came to bedside today. She is able to respond "I love you" to her daughter. Current Medications Current Medications Current Medications: Current Medications Generic Name Dose Route Start Last Admin Trade Name Falguni PRN Reason Stop Dose Admin Acetaminophen 650 mg 05/21/25 14:24 06/09/25 01:28 Acetaminophen 325 Mg Tablet PO 650 mg Q4HR PRN Administration Pain 1 to 4, or Fever Apixaban 2.5 mg 05/29/25 21:00 06/09/25 08:10 Apixaban 2.5 Mg Tablet PO 2.5 mg BID WEST Administration Calcium Carbonate/Glycine 500 mg 06/04/25 09:00 06/09/25 08:11 Calcium Carbonate Chew 500 Mg Tablet PO 500 mg DAILY WEST Administration Cholecalciferol 25 mcg 06/04/25 09:00 06/09/25 08:11 Cholecalciferol 25 Mcg Tablet PO 25 mcg DAILY WEST Administration Docusate Sodium 250 - 500 mg 05/24/25 09:00 06/09/25 08:10 Docusate Sodium 250 Mg Capsule PO 250 mg DAILY WEST Administration Polyethylene Glycol 17 gm 05/25/25 09:00 06/09/25 08:09 Polyethylene Glycol 3350 17 Gm Packet PO 17 gm DAILY WEST Administration Multivit/Folic Acid/Iron 1 tab 05/25/25 08:00 06/09/25 08:11 Vitamin Tablet PO 1 tab DAILYWM WEST Administration Sodium Chloride 10 ml 05/21/25 14:24 Sodium Chloride Flush 0.9% 10 Ml Syringe IVP PRN PRN NEEDED PER PROVIDER ORDERS Thiamine HCl 100 mg 05/30/25 09:00 06/09/25 08:10 Thiamine 100 Mg Tablet PO 100 mg DAILY WEST Administration Objective Vital Signs/Intake & Output Reviewed Vital Signs: Yes Vital Signs: Vital Signs x48h Temp Pulse Resp BP Pulse Ox 06/09/25 08:45 36.5 C 107 H 18 147/109 H 96 Intake & Output: Intake & Output 06/06/25 06/07/25 06/08/25 06/09/25 23:59 23:59 23:59 23:59 Intake Total 1130 / 1130 1080 / 1080 480 / 480 960 / 960 Balance 1130 / 1130 1080 / 1080 480 / 480 960 / 960 Objective General Appearance: positive No acute distress Eyes Bilateral: positive Normal inspection ENT: positive ENT inspection nml Neck: positive Nml inspection Respiratory: positive No respiratory distress and Breath sounds nml Cardiovascular: positive Regular rate & rhythm Abdomen: positive No distention Skin: positive Color nml, No rash and Dry Extremities: positive Nml appearance and No pedal edema Neurologic/Psychiatric: positive Other (not oriented. ) Lab Results 05/31/25 04:41 05/31/25 04:41 Other Labs: Lab Results x24hrs 05/26/25 Range/Units 04:15 Whole Bld Vitamin B1 174.8 (66.5-200.0) nmol/L Sepsis Event Note (H) Evaluation Current Stage of Sepsis: Ruled out Assessment/Plan Problem List (1) Altered mental status: Impression: Altered mentation likely secondary to polysubstance abuse UDS on presentation positive for opiates, amphetamine, methamphetamine, cocaine Patient was held in observation, and repeat CT and MRI were performed. MRI shows diffuse white matter hyperintense signal which may represent edema. Not the typical presentation of press Her altered mentation is not affected by her blood pressure, meaning it is not improved whenever her blood pressure is within normal limits Case discussed with neurology on 05/26, who recommended LP, but stated that this is likely sequela of hypoxic event from drug use. thiamine 500 mg IM 3 times daily started on 05 26,for 3 days, now on po thiamine daily 06/06 Daughter Ina made contact with RN. I also spoke with her, at this point, her mother's condition is sub acute. No need for interventions. Ina is aware her mother needs alf care. She is willing to assist with this, but neither she, nor her mother have a safe place to live. I have let social work know that Ina is available, and SW will reach out to her on 06/07. Flowsheets reviewed and it is noted that she independently ate 100% breakfast on 06/02. This is not the case. she requires someone to feed her. I have changed her to puree diet. She continues to eat well. I am encouraging out of bed to chair at least BID, so that she maintains her strength. Qualifiers: Altered mental status type: stupor Qualified Code(s): R40.1 - Stupor (2) Polysubstance abuse: Impression: She has been in the hospital since 05/13/2025 UDS on presentation was positive for opiates, amphetamine, methamphetamine, cocaine She is likely out of the window for any acute withdrawal. She has not had any acute changes in her mental status for at least a week. (3) Pubic bone fracture: Impression: X-ray hip on 05/25 shows moderately displaced right inferior pubic ramus fracture with extension in the medial acetabular column and suspicion for extension to the pelvic ring. Case was discussed with on-call orthopedist, who reports this is nonoperative. She is full weightbearing as tolerated and will need a walker at discharge. If her mentation improves, we will order PT conradoal, currently not able to particpate with PT. non billable rounding today.
--- NOTE | 2025-06-10 15:38 | PROVIDER PROGRESS NOTE ---
Subjective Prog Note Date Prog Note Date: 06/10/25 Subjective Subjective: daughter Ina present at bedside this afternoon. no changes. Jackelyn continues to be mostly non verbal with small responses to her daughter and staff, but does not seem to engage overall. Current Medications Current Medications Current Medications: Current Medications Generic Name Dose Route Start Last Admin Trade Name Garretq PRN Reason Stop Dose Admin Acetaminophen 650 mg 05/21/25 14:24 06/10/25 12:20 Acetaminophen 325 Mg Tablet PO 650 mg Q4HR PRN Administration Pain 1 to 4, or Fever Apixaban 2.5 mg 05/29/25 21:00 06/10/25 08:18 Apixaban 2.5 Mg Tablet PO 2.5 mg BID WEST Administration Calcium Carbonate/Glycine 500 mg 06/04/25 09:00 06/10/25 08:18 Calcium Carbonate Chew 500 Mg Tablet PO 500 mg DAILY WEST Administration Cholecalciferol 25 mcg 06/04/25 09:00 06/10/25 08:18 Cholecalciferol 25 Mcg Tablet PO 25 mcg DAILY WEST Administration Docusate Sodium 250 - 500 mg 05/24/25 09:00 06/10/25 08:18 Docusate Sodium 250 Mg Capsule PO Not Given DAILY WEST Polyethylene Glycol 17 gm 05/25/25 09:00 06/10/25 08:18 Polyethylene Glycol 3350 17 Gm Packet PO Not Given DAILY WEST Multivit/Folic Acid/Iron 1 tab 05/25/25 08:00 06/10/25 08:18 Vitamin Tablet PO 1 tab DAILYWM WEST Administration Sodium Chloride 10 ml 05/21/25 14:24 Sodium Chloride Flush 0.9% 10 Ml Syringe IVP PRN PRN NEEDED PER PROVIDER ORDERS Thiamine HCl 100 mg 05/30/25 09:00 06/10/25 08:18 Thiamine 100 Mg Tablet PO 100 mg DAILY WEST Administration Objective Vital Signs/Intake & Output Reviewed Vital Signs: Yes Vital Signs: Vital Signs x48h Temp Pulse Resp BP Pulse Ox 06/10/25 08:24 36.7 C 107 H 16 158/89 H 95 Intake & Output: Intake & Output 06/07/25 06/08/25 06/09/25 06/10/25 23:59 23:59 23:59 23:59 Intake Total 1080 / 1080 480 / 480 1567 / 1567 677 / 677 Balance 1080 / 1080 480 / 480 1567 / 1567 677 / 677 Objective General Appearance: positive No acute distress Eyes Bilateral: positive Normal inspection ENT: positive ENT inspection nml Neck: positive Nml inspection Respiratory: positive No respiratory distress and Breath sounds nml Cardiovascular: positive Regular rate & rhythm Abdomen: positive No distention Skin: positive Color nml, No rash and Dry Extremities: positive Nml appearance and No pedal edema Neurologic/Psychiatric: positive Other (not oriented. ) Lab Results 05/31/25 04:41 05/31/25 04:41 Other Labs: Lab Results x24hrs 05/26/25 Range/Units 04:15 Whole Bld Vitamin B1 174.8 (66.5-200.0) nmol/L Sepsis Event Note (H) Evaluation Current Stage of Sepsis: Ruled out Assessment/Plan Problem List (1) Altered mental status: Impression: Altered mentation likely secondary to polysubstance abuse UDS on presentation positive for opiates, amphetamine, methamphetamine, cocaine Patient was held in observation, and repeat CT and MRI were performed. MRI shows diffuse white matter hyperintense signal which may represent edema. Not the typical presentation of press Her altered mentation is not affected by her blood pressure, meaning it is not improved whenever her blood pressure is within normal limits Case discussed with neurology on 05/26, who recommended LP, but stated that this is likely sequela of hypoxic event from drug use. thiamine 500 mg IM 3 times daily started on 05 26,for 3 days, now on po thiamine daily 06/06 Daughter Ina made contact with RN. I also spoke with her, at this point, her mother's condition is sub acute. No need for interventions. 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 She is willing to assist with this, but neither she, nor her mother have a safe place to live. I have let social work know that Ina is available, and SW will reach out to her on 06/07. Flowsheets reviewed and it is noted that she independently ate 100% breakfast on 06/02. This is not the case. she requires someone to feed her. I have changed her to puree diet. She continues to eat well. I am encouraging out of bed to chair at least BID, so that she maintains her strength. Qualifiers: Altered mental status type: stupor Qualified Code(s): R40.1 - Stupor (2) Polysubstance abuse: Impression: She has been in the hospital since 05/13/2025 UDS on presentation was positive for opiates, amphetamine, methamphetamine, cocaine She is likely out of the window for any acute withdrawal. She has not had any acute changes in her mental status for at least a week. (3) Pubic bone fracture: Impression: X-ray hip on 05/25 shows moderately displaced right inferior pubic ramus fracture with extension in the medial acetabular column and suspicion for extension to the pelvic ring. Case was discussed with on-call orthopedist, who reports this is nonoperative. She is full weightbearing as tolerated and will need a walker at discharge. If her mentation improves, we will order PT jesús, currently not able to particpate with PT. non billable rounding today.
--- NOTE | 2025-06-11 11:28 | PROVIDER PROGRESS NOTE ---
Subjective Prog Note Date Prog Note Date: 06/11/25 Subjective Subjective: She is laying on her side in bed. not verbal today, Current Medications Current Medications Current Medications: Current Medications Generic Name Dose Route Start Last Admin Trade Name Falguni PRN Reason Stop Dose Admin Acetaminophen 650 mg 05/21/25 14:24 06/11/25 08:08 Acetaminophen 325 Mg Tablet PO 650 mg Q4HR PRN Administration Pain 1 to 4, or Fever Apixaban 2.5 mg 05/29/25 21:00 06/11/25 08:07 Apixaban 2.5 Mg Tablet PO 2.5 mg BID WEST Administration Calcium Carbonate/Glycine 500 mg 06/04/25 09:00 06/11/25 08:07 Calcium Carbonate Chew 500 Mg Tablet PO 500 mg DAILY WEST Administration Cholecalciferol 25 mcg 06/04/25 09:00 06/11/25 08:08 Cholecalciferol 25 Mcg Tablet PO 25 mcg DAILY WEST Administration Docusate Sodium 250 - 500 mg 05/24/25 09:00 06/11/25 08:08 Docusate Sodium 250 Mg Capsule PO Not Given DAILY WEST Polyethylene Glycol 17 gm 05/25/25 09:00 06/11/25 08:08 Polyethylene Glycol 3350 17 Gm Packet PO Not Given DAILY WEST Multivit/Folic Acid/Iron 1 tab 05/25/25 08:00 06/11/25 08:08 Vitamin Tablet PO 1 tab DAILYWM WEST Administration Sodium Chloride 10 ml 05/21/25 14:24 Sodium Chloride Flush 0.9% 10 Ml Syringe IVP PRN PRN NEEDED PER PROVIDER ORDERS Thiamine HCl 100 mg 05/30/25 09:00 06/11/25 08:07 Thiamine 100 Mg Tablet PO 100 mg DAILY WEST Administration Objective Vital Signs/Intake & Output Reviewed Vital Signs: Yes Vital Signs: Vital Signs x48h Temp Pulse Resp BP Pulse Ox 06/11/25 09:00 36.5 C 102 H 16 106/77 96 Intake & Output: Intake & Output 06/08/25 06/09/25 06/10/25 06/11/25 23:59 23:59 23:59 23:59 Intake Total 480 / 480 1567 / 1567 797 / 797 140 / 140 Balance 480 / 480 1567 / 1567 797 / 797 140 / 140 Objective General Appearance: positive No acute distress Eyes Bilateral: positive Normal inspection ENT: positive ENT inspection nml Neck: positive Nml inspection Respiratory: positive No respiratory distress and Breath sounds nml Cardiovascular: positive Regular rate & rhythm Abdomen: positive No distention Skin: positive Color nml, No rash and Dry Extremities: positive Nml appearance and No pedal edema Neurologic/Psychiatric: positive Other (not oriented. ) Lab Results 05/31/25 04:41 05/31/25 04:41 Other Labs: Lab Results x24hrs 05/26/25 Range/Units 04:15 Whole Bld Vitamin B1 174.8 (66.5-200.0) nmol/L Sepsis Event Note (H) Evaluation Current Stage of Sepsis: Ruled out Assessment/Plan Problem List (1) Altered mental status: Impression: Altered mentation likely secondary to polysubstance abuse UDS on presentation positive for opiates, amphetamine, methamphetamine, cocaine Patient was held in observation, and repeat CT and MRI were performed. MRI shows diffuse white matter hyperintense signal which may represent edema. Not the typical presentation of press Her altered mentation is not affected by her blood pressure, meaning it is not improved whenever her blood pressure is within normal limits Case discussed with neurology on 05/26, who recommended LP, but stated that this is likely sequela of hypoxic event from drug use. thiamine 500 mg IM 3 times daily started on 05 26,for 3 days, now on po thiamine daily 06/06 Daughter Ina made contact with RN. I also spoke with her, at this point, her mother's condition is sub acute. No need for interventions. Ina is aware her mother needs [facility] care. She is willing to assist with this, but neither she, nor her mother have a safe place to live. I have let social work know that Ina is available, and SW will reach out to her on 06/07. Flowsheets reviewed and it is noted that she independently ate 100% breakfast on 06/02. This is not the case. she requires someone to feed her. I have changed her to puree diet. She continues to eat well. I am encouraging out of bed to chair at least BID, so that she maintains her strength. Qualifiers: Altered mental status type: stupor Qualified Code(s): R40.1 - Stupor (2) Polysubstance abuse: Impression: She has been in the hospital since 05/13/2025 UDS on presentation was positive for opiates, amphetamine, methamphetamine, cocaine She is likely out of the window for any acute withdrawal. She has not had any acute changes in her mental status for at least a week. (3) Pubic bone fracture: Impression: X-ray hip on 05/25 shows moderately displaced right inferior pubic ramus fracture with extension in the medial acetabular column and suspicion for extension to the pelvic ring. Case was discussed with on-call orthopedist, who reports this is nonoperative. She is full weightbearing as tolerated and will need a walker at discharge. If her mentation improves, we will order PT jesús, currently not able to particpate with PT. non billable rounding today.
[2025-06-12 11:57] LABS: HCT - HEMATOCRIT 40.3 % (37.0-47.0); HGB - HEMOGLOBIN 13.6 g/dL (12.0-16.0); MEAN PLATELET VOLUME 9.3 fL (7.9-10.8); NRBC ABSOLUTE COUNT (AUTO) 0.00 x10^3/uL; NUCLEATED RED BLOOD CELLS AUTO 0.0 /100WBC; PLT - PLATELET COUNT 328 10^3/uL (130-450); RED CELL DISTRIBUTION WIDTH 13.7 % (12.0-15.0)
[2025-06-12 12:14] LABS: BUN - BLOOD UREA NITROGEN 19.0 mg/dL (6-20); CARBON DIOXIDE - CO2 32.0 mmol/L (21-32); CREATININE 0.5 mg/dL (0.6-1.3); GFR - MDRD 126.0 (>89)
--- NOTE | 2025-06-12 17:01 | PROVIDER PROGRESS NOTE ---
Subjective Prog Note Date Prog Note Date: 06/12/25 Subjective Subjective: no change. not verbal. holding up a washcloth with her right hand, lying on her right side. Current Medications Current Medications Current Medications: Current Medications Generic Name Dose Route Start Last Admin Trade Name Falguni PRN Reason Stop Dose Admin Acetaminophen 650 mg 05/21/25 14:24 06/12/25 12:22 Acetaminophen 325 Mg Tablet PO 650 mg Q4HR PRN Administration Pain 1 to 4, or Fever Apixaban 2.5 mg 05/29/25 21:00 06/12/25 09:33 Apixaban 2.5 Mg Tablet PO 2.5 mg BID WEST Administration Calcium Carbonate/Glycine 500 mg 06/04/25 09:00 06/12/25 09:33 Calcium Carbonate Chew 500 Mg Tablet PO 500 mg DAILY WEST Administration Cholecalciferol 25 mcg 06/04/25 09:00 06/12/25 09:33 Cholecalciferol 25 Mcg Tablet PO 25 mcg DAILY WEST Administration Docusate Sodium 250 - 500 mg 05/24/25 09:00 06/12/25 09:33 Docusate Sodium 250 Mg Capsule PO 250 mg DAILY WEST Administration Polyethylene Glycol 17 gm 05/25/25 09:00 06/12/25 09:34 Polyethylene Glycol 3350 17 Gm Packet PO 17 gm DAILY WEST Administration Multivit/Folic Acid/Iron 1 tab 05/25/25 08:00 06/12/25 09:33 Vitamin Tablet PO 1 tab DAILYWM WEST Administration Sodium Chloride 10 ml 05/21/25 14:24 Sodium Chloride Flush 0.9% 10 Ml Syringe IVP PRN PRN NEEDED PER PROVIDER ORDERS Thiamine HCl 100 mg 05/30/25 09:00 06/12/25 09:33 Thiamine 100 Mg Tablet PO 100 mg DAILY WEST Administration Objective Vital Signs/Intake & Output Reviewed Vital Signs: Yes Vital Signs: Vital Signs x48h Temp Pulse Resp BP BP Pulse Ox 06/12/25 15:30 36.6 C 96 22 146/94 H 97 06/12/25 11:01 36.4 C L 101 H 14 129/88 98 Intake & Output: Intake & Output 06/09/25 06/10/25 06/11/25 06/12/25 23:59 23:59 23:59 23:59 Intake Total 1567 / 1567 797 / 797 1220 / 1220 1340 / 1340 Balance 1567 / 1567 797 / 797 1220 / 1220 1340 / 1340 Objective General Appearance: positive No acute distress Eyes Bilateral: positive Normal inspection ENT: positive ENT inspection nml Neck: positive Nml inspection Respiratory: positive No respiratory distress and Breath sounds nml Cardiovascular: positive Regular rate & rhythm Abdomen: positive No distention Skin: positive Color nml, No rash and Dry Extremities: positive Nml appearance and No pedal edema Neurologic/Psychiatric: positive Other (not oriented. ) Lab Results 06/12/25 11:51 06/12/25 11:51 Other Labs: Lab Results x24hrs 06/12/25 Range/Units 11:51 WBC 7.0 (4.8-10.8) x10^3/uL RBC 4.30 (4.20-5.40) 10^6/uL Hgb 13.6 (12.0-16.0) g/dL Hct 40.3 (37.0-47.0) % MCV 93.7 (81.0-99.0) fL MCH 31.6 H (27.0-31.0) pg MCHC 33.7 (32.0-36.0) g/dL RDW 13.7 (12.0-15.0) % Plt Count 328 (130-450) 10^3/uL MPV 9.3 (7.9-10.8) fL Neut # (Auto) 4.2 (1.5-6.6) 10^3/uL Lymph # (Auto) 1.7 (1.5-3.5) 10^3/uL [facility] # (Auto) 1.0 (0.0-1.0) 10^3/uL Eos # (Auto) 0.2 (0.0-0.7) 10^3/uL Baso # (Auto) 0.0 (0.0-0.1) 10^3/uL Absolute Nucleated RBC 0.00 x10^3/uL Nucleated RBC % 0.0 /100WBC Sodium 139 (135-145) mmol/L Potassium 4.1 (3.5-4.5) mmol/L Chloride 101 (101-111) mmol/L Carbon Dioxide 32 (21-32) mmol/L Anion Gap 6.0 (6-13) BUN 19 (6-20) mg/dL Creatinine 0.5 L (0.6-1.3) mg/dL Estimated GFR (MDRD) 126 (>89) Glucose 87 (74-104) mg/dL Calcium 10.1 (8.5-10.3) mg/dL Sepsis Event Note (H) Evaluation Current Stage of Sepsis: Ruled out Assessment/Plan Problem List (1) Altered mental status: Impression: Altered mentation likely secondary to polysubstance abuse UDS on presentation positive for opiates, amphetamine, methamphetamine, cocaine Patient was held in observation, and repeat CT and MRI were performed. MRI shows diffuse white matter hyperintense signal which may represent edema. Not the typical presentation of press Her altered mentation is not affected by her blood pressure, meaning it is not improved whenever her blood pressure is within normal limits Case discussed with neurology on 05/26, who recommended LP, but stated that this is likely sequela of hypoxic event from drug use. thiamine 500 mg IM 3 times daily started on 05 26,for 3 days, now on po thiamine daily 06/06 Daughter Ina made contact with RN. I also spoke with her, at this point, her mother's condition is sub acute. No need for interventions. Ina is aware her mother needs terminal carman care. She is willing to assist with this, but neither she, nor her mother have a safe place to live. I have let social work know that Ina is available, and SW will reach out to her on 06/07. Flowsheets reviewed and it is noted that she independently ate 100% breakfast on 06/02. This is not the case. she requires someone to feed her. I have changed her to puree diet. She continues to eat well. I am encouraging out of bed to chair at least BID, so that she maintains her strength. Qualifiers: Altered mental status type: stupor Qualified Code(s): R40.1 - Stupor (2) Polysubstance abuse: Impression: She has been in the hospital since 05/13/2025 UDS on presentation was positive for opiates, amphetamine, methamphetamine, cocaine She is likely out of the window for any acute withdrawal. She has not had any acute changes in her mental status for at least a week. (3) Pubic bone fracture: Impression: X-ray hip on 05/25 shows moderately displaced right inferior pubic ramus fracture with extension in the medial acetabular column and suspicion for extension to the pelvic ring. Case was discussed with on-call orthopedist, who reports this is nonoperative. She is full weightbearing as tolerated and will need a walker at discharge. If her mentation improves, we will order PT jesús, currently not able to particpate with PT. non billable rounding today.
--- NOTE | 2025-06-13 12:17 | PROVIDER PROGRESS NOTE ---
Subjective Prog Note Date Prog Note Date: 06/13/25 Subjective Pt reports feeling: No change Current Medications Current Medications Current Medications: Current Medications Generic Name Dose Route Start Last Admin Trade Name Falguni PRN Reason Stop Dose Admin Acetaminophen 650 mg 05/21/25 14:24 06/13/25 08:15 Acetaminophen 325 Mg Tablet PO 650 mg Q4HR PRN Administration Pain 1 to 4, or Fever Apixaban 2.5 mg 05/29/25 21:00 06/13/25 08:14 Apixaban 2.5 Mg Tablet PO 2.5 mg BID WEST Administration Buprenorphine HCl 1 tab 06/13/25 12:00 Buprenorphine/Naloxone 8-2 Mg Tab SL DAILY WEST Calcium Carbonate/Glycine 500 mg 06/04/25 09:00 06/13/25 08:16 Calcium Carbonate Chew 500 Mg Tablet PO 500 mg DAILY WEST Administration Cholecalciferol 25 mcg 06/04/25 09:00 06/13/25 08:16 Cholecalciferol 25 Mcg Tablet PO 25 mcg DAILY WEST Administration Docusate Sodium 250 - 500 mg 05/24/25 09:00 06/13/25 08:16 Docusate Sodium 250 Mg Capsule PO 250 mg DAILY WEST Administration Polyethylene Glycol 17 gm 05/25/25 09:00 06/13/25 08:17 Polyethylene Glycol 3350 17 Gm Packet PO 17 gm DAILY WEST Administration Multivit/Folic Acid/Iron 1 tab 05/25/25 08:00 06/13/25 08:16 Vitamin Tablet PO 1 tab DAILYWM WEST Administration Sodium Chloride 10 ml 05/21/25 14:24 Sodium Chloride Flush 0.9% 10 Ml Syringe IVP PRN PRN NEEDED PER PROVIDER ORDERS Thiamine HCl 100 mg 05/30/25 09:00 06/13/25 08:14 Thiamine 100 Mg Tablet PO 100 mg DAILY WEST Administration Objective Vital Signs/Intake & Output Reviewed Vital Signs: Yes Vital Signs: Vital Signs x48h Temp Pulse Resp BP Pulse Ox 06/13/25 07:56 36.4 C L 102 H 18 136/85 H 96 Intake & Output: Intake & Output 06/10/25 06/11/25 06/12/25 06/13/25 23:59 23:59 23:59 23:59 Intake Total 797 / 797 1220 / 1220 1910 / 1910 945 / 945 Balance 797 / 797 1220 / 1220 1910 / 191 945 / 945 Objective General Appearance: positive No acute distress Eyes Bilateral: positive Normal inspection ENT: positive ENT inspection nml Neck: positive Nml inspection Respiratory: positive No respiratory distress and Breath sounds nml Cardiovascular: positive Regular rate & rhythm Abdomen: positive No distention Skin: positive Color nml, No rash and Dry Extremities: positive No pedal edema; negative Nml appearance Neurologic/Psychiatric: positive Other (Tracks with eyes, moves all extremities. Did not speak to me, but I did notice her laugh at something I said) Lab Results 06/12/25 11:51 06/12/25 11:51 Other Labs: Lab Results x24hrs 06/12/25 Range/Units 11:51 Sodium 139 (135-145) mmol/L Potassium 4.1 (3.5-4.5) mmol/L Chloride 101 (101-111) mmol/L Carbon Dioxide 32 (21-32) mmol/L Anion Gap 6.0 (6-13) BUN 19 (6-20) mg/dL Creatinine 0.5 L (0.6-1.3) mg/dL Estimated GFR (MDRD) 126 (>89) Glucose 87 (74-104) mg/dL Calcium 10.1 (8.5-10.3) mg/dL Sepsis Event Note (H) Evaluation Current Stage of Sepsis: Ruled out Assessment/Plan Problem List (1) Polysubstance abuse: Impression: She has been in the hospital since 05/13/2025 UDS on presentation was positive for opiates, amphetamine, methamphetamine, cocaine She is likely out of the window for any acute withdrawal. She has not had any acute changes in her mental status for at least a week. 06/13: She is having some overall tenseness and hyperactivity, likely a psychomotor side effect of her polysubstance abuse. I am starting Suboxone 8-2 mg SL daily and will monitor for effect versus toxicity (2) Altered mental status: Impression: Altered mentation likely secondary to polysubstance abuse UDS on presentation positive for opiates, amphetamine, methamphetamine, cocaine Patient was held in observation, and repeat CT and MRI were performed. MRI shows diffuse white matter hyperintense signal which may represent edema. Not the typical presentation of press Her altered mentation is not affected by her blood pressure, meaning it is not improved whenever her blood pressure is within normal limits Case discussed with neurology on 05/26, who recommended LP, but stated that this is likely sequela of hypoxic event from drug use. thiamine 500 mg IM 3 times daily started on 05 26,for 3 days, now on po thiamine daily 06/06 Daughter Ina made contact with RN. I also spoke with her, at this point, her mother's condition is sub acute. No need for interventions. Ina is aware her mother needs [facility] care. She is willing to assist with this, but neither she, nor her mother have a safe place to live. I have let social work know that Ina is available, and SW will reach out to her on 06/07. Qualifiers: Altered mental status type: stupor Qualified Code(s): R40.1 - Stupor (3) Pubic bone fracture: Impression: X-ray hip on 05/25 shows moderately displaced right inferior pubic ramus fracture with extension in the medial acetabular column and suspicion for extension to the pelvic ring. Case was discussed with on-call orthopedist, who reports this is nonoperative. She is full weightbearing as tolerated and will need a walker at discharge. If her mentation improves, we will order PT jesús, currently not able to particpate with PT.
[2025-06-13] MEDS: BUPRENORPHINE/NALOXONE 8-2 MG TAB SL SCH (12:37)
[2025-06-13] MEDS ORDERED: NALOXONE HCL NASAL SPRAY KIT NAS PRN (16:02)
[2025-06-13] MEDS: NALOXONE 0.4 MG/ML VIAL IVP ONE (16:23)
[2025-06-13] MEDS ORDERED: NALOXONE 0.4 MG/ML VIAL ONE (21:57)
[2025-06-13] MEDS: NALOXONE 0.4 MG/ML VIAL IVP PRN (22:04)
[2025-06-13] MEDS: LACTATED RINGERS 1,000 ML IV ONE (22:07)
[2025-06-13] MEDS ORDERED: NALOXONE 0.4 MG/ML VIAL IVP PRN (22:08)
[2025-06-13 22:28] LABS: HCT - HEMATOCRIT 37.0 % (37.0-47.0); HGB - HEMOGLOBIN 12.5 g/dL (12.0-16.0); MEAN PLATELET VOLUME 9.1 fL (7.9-10.8); NRBC ABSOLUTE COUNT (AUTO) 0.00 x10^3/uL; NUCLEATED RED BLOOD CELLS AUTO 0.0 /100WBC; PLT - PLATELET COUNT 280 10^3/uL (130-450); RED CELL DISTRIBUTION WIDTH 13.8 % (12.0-15.0)
[2025-06-13 22:52] LABS: ALT ALANINE AMINOTRANSFERASE 20.0 IU/L (10-60); AST ASPARTATE AMINOTRANSFERASE 23.0 IU/L (10-42); BUN - BLOOD UREA NITROGEN 20.0 mg/dL (6-20); CARBON DIOXIDE - CO2 31.0 mmol/L (21-32); CREATININE 0.7 mg/dL (0.6-1.3); GFR - MDRD 86.0 (>89)
--- NOTE | 2025-06-13 22:55 | CT Report ---
PROCEDURE: CT Head WO INDICATIONS: AMS TECHNIQUE: CT of the head was performed, without intravenous contrast. Reformats: Coronal and sagittal. For radiation dose reduction, the following was used: automated exposure control, adjustment of mA and/or kV according to patient size. COMPARISON: 05/21/2025, 05/13/2025 FINDINGS: Image quality: There is streak artifact seen through the skull base. CSF spaces: Basal cisterns are patent. No extra-axial fluid collections. Ventricles are normal in size and shape. Brain: No midline shift. No intracranial mass effect or hemorrhage. Booker- white matter interface is normal. Skull and face: Calvarium and visualized facial bones are intact, without suspicious lesions. Sinuses: Visualized sinuses and mastoids are clear. IMPRESSION: Unremarkable intracranial study, similar to the recent priors. If there is strong clinical concern for a stroke, please consider a dedicated brain MRI for further evaluation (assuming that there is no contraindication to MRI). Reviewed by: Dexter Erickson MD on 06/13/2025 9:54 PM [facility] Approved by: Dexter Erickson MD on 06/13/2025 9:54 PM [facility] Station ID: [id number]
[2025-06-14 05:12] LABS: HCT - HEMATOCRIT 36.7 % (37.0-47.0); HGB - HEMOGLOBIN 12.3 g/dL (12.0-16.0); MEAN PLATELET VOLUME 9.4 fL (7.9-10.8); NRBC ABSOLUTE COUNT (AUTO) 0.00 x10^3/uL; NUCLEATED RED BLOOD CELLS AUTO 0.0 /100WBC; PLT - PLATELET COUNT 283 10^3/uL (130-450); RED CELL DISTRIBUTION WIDTH 14.0 % (12.0-15.0)
[2025-06-14 05:30] LABS: BUN - BLOOD UREA NITROGEN 20.0 mg/dL (6-20); CARBON DIOXIDE - CO2 32.0 mmol/L (21-32); CREATININE 0.6 mg/dL (0.6-1.3); GFR - MDRD 102.0 (>89)
--- NOTE | 2025-06-14 07:11 | XRAY Report ---
PROCEDURE: XR Chest 1V INDICATIONS: shortness of breath TECHNIQUE: One view of the chest was acquired. COMPARISON: None. FINDINGS: Surgical changes and devices: None. Lungs and pleura: No pleural effusions or pneumothorax. No consolidation identified. Increased lung volumes and parenchymal lucency. Mediastinum: Mediastinal contours appear unchanged. Heart size is normal. Bones and chest wall: No suspicious bony lesions. Overlying soft tissues appear unremarkable. IMPRESSION: No acute cardiopulmonary process identified. Emphysematous change. Reviewed by: Brock Hugo MD on 06/14/2025 7:09 AM PDT Approved by: Brock Hugo MD on 06/14/2025 7:09 AM PDT Station ID: [id number]
--- NOTE | 2025-06-14 11:15 | PROVIDER PROGRESS NOTE ---
Subjective Prog Note Date Prog Note Date: 06/14/25 Subjective Pt reports feeling: Worse Current Medications Current Medications Current Medications: Current Medications Generic Name Dose Route Start Last Admin Trade Name Falguni PRN Reason Stop Dose Admin Acetaminophen 650 mg 05/21/25 14:24 06/13/25 08:15 Acetaminophen 325 Mg Tablet PO 650 mg Q4HR PRN Administration Pain 1 to 4, or Fever Apixaban 2.5 mg 05/29/25 21:00 06/14/25 09:48 Apixaban 2.5 Mg Tablet PO Not Given BID [facility] Calcium Carbonate/Glycine 500 mg 06/04/25 09:00 06/14/25 09:48 Calcium Carbonate Chew 500 Mg Tablet PO Not Given DAILY [facility] Cholecalciferol 25 mcg 06/04/25 09:00 06/14/25 09:48 Cholecalciferol 25 Mcg Tablet PO Not Given DAILY [facility] Docusate Sodium 250 - 500 mg 05/24/25 09:00 06/14/25 09:48 Docusate Sodium 250 Mg Capsule PO Not Given DAILY [facility] Naloxone HCl 0.4 mg 06/13/25 21:50 06/13/25 22:04 Naloxone 0.4 Mg/Ml Vial IVP 0.4 mg PRN PRN Administration respiratory depression Naloxone HCl 0.4 mg 06/13/25 22:08 Naloxone 0.4 Mg/Ml Vial IVP Q10M PRN respiratory depression Polyethylene Glycol 17 gm 05/25/25 09:00 06/14/25 09:48 Polyethylene Glycol 3350 17 Gm Packet PO Not Given DAILY [facility] Multivit/Folic Acid/Iron 1 tab 05/25/25 08:00 06/14/25 09:48 Vitamin Tablet PO Not Given DAILYWM [facility] Sodium Chloride 10 ml 05/21/25 14:24 Sodium Chloride Flush 0.9% 10 Ml Syringe IVP PRN PRN NEEDED PER PROVIDER ORDERS Thiamine HCl 100 mg 05/30/25 09:00 06/14/25 09:48 Thiamine 100 Mg Tablet PO Not Given DAILY [facility] Objective Vital Signs/Intake & Output Reviewed Vital Signs: Yes Vital Signs: Vital Signs x48h Temp Pulse Resp BP Pulse Ox O2 Flow Rate 06/14/25 10:00 36.3 C L 80 10 L 104/68 98 1 Intake & Output: Intake & Output 06/11/25 06/12/25 06/13/25 06/14/25 23:59 23:59 23:59 23:59 Intake Total 1220 / 1220 1909 Output Total 0 / 0 500 / 500 Balance 1220 / 1220 1909 -500 / -500 Objective General Appearance: positive No acute distress Eyes Bilateral: positive Normal inspection ENT: positive ENT inspection nml Neck: positive Nml inspection Respiratory: positive No respiratory distress and Breath sounds nml Cardiovascular: positive Regular rate & rhythm Abdomen: positive No distention Skin: positive Color nml, No rash and Dry Extremities: positive No pedal edema; negative Nml appearance Neurologic/Psychiatric: positive Other (Withdraws from pain. Occasionally opens her eyes) Lab Results 06/14/25 04:57 06/14/25 04:57 Other Labs: Lab Results x24hrs 06/14/25 06/13/25 06/13/25 Range/Units 04:57 22:24 20:21 WBC 6.7 8.1 (4.8-10.8) x10^3/uL RBC 3.85 L 3.91 L (4.20-5.40) 10^6/uL Hgb 12.3 12.5 (12.0-16.0) g/dL Hct 36.7 L 37.0 (37.0-47.0) % MCV 95.3 94.6 (81.0-99.0) fL MCH 31.9 H 32.0 H (27.0-31.0) pg MCHC 33.5 33.8 (32.0-36.0) g/dL RDW 14.0 13.8 (12.0-15.0) % Plt Count 283 280 (130-450) 10^3/uL MPV 9.4 9.1 (7.9-10.8) fL Neut # (Auto) 3.9 4.6 (1.5-6.6) 10^3/uL Lymph # (Auto) 1.6 2.1 (1.5-3.5) 10^3/uL [place] # (Auto) 0.9 1.1 H (0.0-1.0) 10^3/uL Eos # (Auto) 0.3 0.2 (0.0-0.7) 10^3/uL Baso # (Auto) 0.0 0.0 (0.0-0.1) 10^3/uL Absolute Nucleated RBC 0.00 0.00 x10^3/uL Nucleated RBC % 0.0 0.0 /100WBC Sodium 137 137 (135-145) mmol/L Potassium 4.2 4.3 (3.5-4.5) mmol/L Chloride 101 101 (101-111) mmol/L Carbon Dioxide 32 31 (21-32) mmol/L Anion Gap 4.0 L 5.0 L (6-13) BUN 20 20 (6-20) mg/dL Creatinine 0.6 0.7 (0.6-1.3) mg/dL Estimated GFR (MDRD) 102 86 L (>89) Glucose 89 101 (74-104) mg/dL POC Whole Bld Glucose 118 (70-100) mg/dL Calcium 9.5 9.4 (8.5-10.3) mg/dL Total Bilirubin 0.4 (0.2-1.0) mg/dL AST 23 (10-42) IU/L ALT 20 (10-60) IU/L Alkaline Phosphatase 51 (42-121) IU/L Total Protein 6.2 L (6.4-8.9) g/dL Albumin 3.5 (3.2-5.5) g/dL Globulin 2.7 (2.1-4.2) g/dL Albumin/Globulin Ratio 1.3 (1.0-2.2) Sepsis Event Note (H) Evaluation Current Stage of Sepsis: Ruled out Assessment/Plan Problem List (1) Polysubstance abuse: Impression: She has been in the hospital since 05/13/2025 UDS on presentation was positive for opiates, amphetamine, methamphetamine, cocaine She is likely out of the window for any acute withdrawal. She has not had any acute changes in her mental status for at least a week. 06/13: She is having some overall tenseness and hyperactivity, likely a psychomotor side effect of her polysubstance abuse. I am starting Suboxone 8-2 mg SL daily and will monitor for effect versus toxicity 05/20 7: She did not tolerate her dose of Suboxone very well. She was very lethargic through most of yesterday afternoon and is still only responding to pain. Last night I gave her a dose of Narcan with minimal effect. I gave her a liter of IV fluids and sent her for CT head out of an abundance of caution which showed no acute changes. I have discontinued her Suboxone, and I am keeping her on continuous pulse ox to watch for respiratory depression. I have Narcan ordered as needed. Chest x-ray was performed as she had some desaturation requiring 2 L O2. This showed no acute findings. (2) Altered mental status: Impression: Altered mentation likely secondary to polysubstance abuse UDS on presentation positive for opiates, amphetamine, methamphetamine, cocaine Patient was held in observation, and repeat CT and MRI were performed. MRI shows diffuse white matter hyperintense signal which may represent edema. Not the typical presentation of press Her altered mentation is not affected by her blood pressure, meaning it is not improved whenever her blood pressure is within normal limits Case discussed with neurology on 05/26, who recommended LP, but stated that this is likely sequela of hypoxic event from drug use. thiamine 500 mg IM 3 times daily started on 05 26,for 3 days, now on po thiamine daily 06/06 Daughter Ina made contact with RN. I also spoke with her, at this point, her mother's condition is sub acute. No need for interventions. 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 She is willing to assist with this, but neither she, nor her mother have a safe place to live. I have let social work know that Ina is available, and SW will reach out to her on 06/07. Qualifiers: Altered mental status type: stupor Qualified Code(s): R40.1 - Stupor (3) Pubic bone fracture: Impression: X-ray hip on 05/25 shows moderately displaced right inferior pubic ramus fracture with extension in the medial acetabular column and suspicion for extension to the pelvic ring. Case was discussed with on-call orthopedist, who reports this is nonoperative. She is full weightbearing as tolerated and will need a walker at discharge. If her mentation improves, we will order PT jesús, currently not able to particpate with PT.
[2025-06-15] MEDS: SODIUM CHLORIDE FLUSH 0.9% 10 ML SYRINGE IVP PRN (00:58)
--- NOTE | 2025-06-15 14:45 | PROVIDER PROGRESS NOTE ---
Subjective Prog Note Date Prog Note Date: 06/15/25 Subjective Pt reports feeling: Improved Current Medications Current Medications Current Medications: Current Medications Generic Name Dose Route Start Last Admin Trade Name Falguni PRN Reason Stop Dose Admin Acetaminophen 650 mg 05/21/25 14:24 06/15/25 00:48 Acetaminophen 325 Mg Tablet PO 650 mg Q4HR PRN Administration Pain 1 to 4, or Fever Apixaban 2.5 mg 05/29/25 21:00 06/15/25 09:04 Apixaban 2.5 Mg Tablet PO 2.5 mg BID [facility] Administration Calcium Carbonate/Glycine 500 mg 06/04/25 09:00 06/15/25 09:04 Calcium Carbonate Chew 500 Mg Tablet PO 500 mg DAILY [facility] Administration Cholecalciferol 25 mcg 06/04/25 09:00 06/15/25 09:04 Cholecalciferol 25 Mcg Tablet PO 25 mcg DAILY [facility] Administration Docusate Sodium 250 - 500 mg 05/24/25 09:00 06/15/25 09:04 Docusate Sodium 250 Mg Capsule PO 250 mg DAILY [facility] Administration Naloxone HCl 0.4 mg 06/13/25 21:50 06/13/25 22:04 Naloxone 0.4 Mg/Ml Vial IVP 0.4 mg PRN PRN Administration respiratory depression Naloxone HCl 0.4 mg 06/13/25 22:08 Naloxone 0.4 Mg/Ml Vial IVP Q10M PRN respiratory depression Polyethylene Glycol 17 gm 05/25/25 09:00 06/15/25 09:05 Polyethylene Glycol 3350 17 Gm Packet PO 17 gm DAILY [facility] Administration Multivit/Folic Acid/Iron 1 tab 05/25/25 08:00 06/15/25 09:04 Vitamin Tablet PO 1 tab DAILYWM [facility] Administration Sodium Chloride 10 ml 05/21/25 14:24 06/15/25 00:58 Sodium Chloride Flush 0.9% 10 Ml Syringe IVP 10 ml PRN PRN Administration NEEDED PER PROVIDER ORDERS Thiamine HCl 100 mg 05/30/25 09:00 06/15/25 09:05 Thiamine 100 Mg Tablet PO 100 mg DAILY [facility] Administration Objective Vital Signs/Intake & Output Reviewed Vital Signs: Yes Vital Signs: Vital Signs x48h Temp Pulse Resp BP Pulse Ox O2 Flow Rate 06/14/25 10:00 36.3 C L 80 10 L 104/68 98 1 Intake & Output: Intake & Output 06/12/25 06/13/25 06/14/25 06/15/25 23:59 23:59 23:59 23:59 Intake Total 1909 123 / 123 1200 / 1200 Output Total 0 / 0 500 / 500 Balance 1909 -377 / -377 1200 / 1200 Objective General Appearance: positive No acute distress and Alert Eyes Bilateral: positive Normal inspection ENT: positive ENT inspection nml Neck: positive Nml inspection Respiratory: positive No respiratory distress and Breath sounds nml Cardiovascular: positive Regular rate & rhythm Abdomen: positive No distention Skin: positive Color nml, No rash and Dry Extremities: positive No pedal edema; negative Nml appearance Neurologic/Psychiatric: positive Other (Opens eyes spontaneously, moving all extremities. Not interactive with interview) Lab Results 06/14/25 04:57 06/14/25 04:57 Other Labs: Lab Results x24hrs 06/14/25 06/13/25 06/13/25 Range/Units 04:57 22:24 20:21 WBC 6.7 8.1 (4.8-10.8) x10^3/uL RBC 3.85 L 3.91 L (4.20-5.40) 10^6/uL Hgb 12.3 12.5 (12.0-16.0) g/dL Hct 36.7 L 37.0 (37.0-47.0) % MCV 95.3 94.6 (81.0-99.0) fL MCH 31.9 H 32.0 H (27.0-31.0) pg MCHC 33.5 33.8 (32.0-36.0) g/dL RDW 14.0 13.8 (12.0-15.0) % Plt Count 283 280 (130-450) 10^3/uL MPV 9.4 9.1 (7.9-10.8) fL Neut # (Auto) 3.9 4.6 (1.5-6.6) 10^3/uL Lymph # (Auto) 1.6 2.1 (1.5-3.5) 10^3/uL [place] # (Auto) 0.9 1.1 H (0.0-1.0) 10^3/uL Eos # (Auto) 0.3 0.2 (0.0-0.7) 10^3/uL Baso # (Auto) 0.0 0.0 (0.0-0.1) 10^3/uL Absolute Nucleated RBC 0.00 0.00 x10^3/uL Nucleated RBC % 0.0 0.0 /100WBC Sodium 137 137 (135-145) mmol/L Potassium 4.2 4.3 (3.5-4.5) mmol/L Chloride 101 101 (101-111) mmol/L Carbon Dioxide 32 31 (21-32) mmol/L Anion Gap 4.0 L 5.0 L (6-13) BUN 20 20 (6-20) mg/dL Creatinine 0.6 0.7 (0.6-1.3) mg/dL Estimated GFR (MDRD) 102 86 L (>89) Glucose 89 101 (74-104) mg/dL POC Whole Bld Glucose 118 (70-100) mg/dL Calcium 9.5 9.4 (8.5-10.3) mg/dL Total Bilirubin 0.4 (0.2-1.0) mg/dL AST 23 (10-42) IU/L ALT 20 (10-60) IU/L Alkaline Phosphatase 51 (42-121) IU/L Total Protein 6.2 L (6.4-8.9) g/dL Albumin 3.5 (3.2-5.5) g/dL Globulin 2.7 (2.1-4.2) g/dL Albumin/Globulin Ratio 1.3 (1.0-2.2) Sepsis Event Note (H) Evaluation Current Stage of Sepsis: Ruled out Assessment/Plan Problem List (1) Polysubstance abuse: Impression: She has been in the hospital since 05/13/2025 UDS on presentation was positive for opiates, amphetamine, methamphetamine, cocaine She is likely out of the window for any acute withdrawal. She has not had any acute changes in her mental status for at least a week. 06/13: She is having some overall tenseness and hyperactivity, likely a psychomotor side effect of her polysubstance abuse. I am starting Suboxone 8-2 mg SL daily and will monitor for effect versus toxicity 05/20 7: She did not tolerate her dose of Suboxone very well. She was very lethargic through most of yesterday afternoon and is still only responding to pain. Last night I gave her a dose of Narcan with minimal effect. I gave her a liter of IV fluids and sent her for CT head out of an abundance of caution which showed no acute changes. I have discontinued her Suboxone, and I am keeping her on continuous pulse ox to watch for respiratory depression. I have Narcan ordered as needed. Chest x-ray was performed as she had some desaturation requiring 2 L O2. This showed no acute findings. 06/15: Her mentation is much improved today as the Suboxone is washing out of her system. As we do not stock smaller doses of Suboxone, we will likely not pursue this any further. She is back to her mentation as of a few days ago. Remains medically clear. Today is nonbillable rounding (2) Altered mental status: Impression: Altered mentation likely secondary to polysubstance abuse UDS on presentation positive for opiates, amphetamine, methamphetamine, cocaine Patient was held in observation, and repeat CT and MRI were performed. MRI shows diffuse white matter hyperintense signal which may represent edema. Not the typical presentation of press Her altered mentation is not affected by her blood pressure, meaning it is not improved whenever her blood pressure is within normal limits Case discussed with neurology on 05/26, who recommended LP, but stated that this is likely sequela of hypoxic event from drug use. thiamine 500 mg IM 3 times daily started on 05 26,for 3 days, now on po thiamine daily 06/06 Daughter Ina made contact with RN. I also spoke with her, at this point, her mother's condition is sub acute. No need for interventions. 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 She is willing to assist with this, but neither she, nor her mother have a safe place to live. I have let social work know that Ina is available, and SW will reach out to her on 06/07. Qualifiers: Altered mental status type: stupor Qualified Code(s): R40.1 - Stupor (3) Pubic bone fracture: Impression: X-ray hip on 05/25 shows moderately displaced right inferior pubic ramus fracture with extension in the medial acetabular column and suspicion for extension to the pelvic ring. Case was discussed with on-call orthopedist, who reports this is nonoperative. She is full weightbearing as tolerated and will need a walker at discharge. If her mentation improves, we will order PT jesús, currently not able to particpate with PT.
--- NOTE | 2025-06-16 12:17 | PROVIDER PROGRESS NOTE ---
Subjective Prog Note Date Prog Note Date: 06/16/25 Subjective Pt reports feeling: No change Current Medications Current Medications Current Medications: Current Medications Generic Name Dose Route Start Last Admin Trade Name Falguni PRN Reason Stop Dose Admin Acetaminophen 650 mg 05/21/25 14:24 06/15/25 00:48 Acetaminophen 325 Mg Tablet PO 650 mg Q4HR PRN Administration Pain 1 to 4, or Fever Apixaban 2.5 mg 05/29/25 21:00 06/16/25 08:30 Apixaban 2.5 Mg Tablet PO 2.5 mg BID [facility] Administration Calcium Carbonate/Glycine 500 mg 06/04/25 09:00 06/16/25 08:30 Calcium Carbonate Chew 500 Mg Tablet PO 500 mg DAILY [facility] Administration Cholecalciferol 25 mcg 06/04/25 09:00 06/16/25 08:30 Cholecalciferol 25 Mcg Tablet PO 25 mcg DAILY [facility] Administration Docusate Sodium 250 - 500 mg 05/24/25 09:00 06/16/25 08:30 Docusate Sodium 250 Mg Capsule PO 250 mg DAILY [facility] Administration Naloxone HCl 0.4 mg 06/13/25 21:50 06/13/25 22:04 Naloxone 0.4 Mg/Ml Vial IVP 0.4 mg PRN PRN Administration respiratory depression Naloxone HCl 0.4 mg 06/13/25 22:08 Naloxone 0.4 Mg/Ml Vial IVP Q10M PRN respiratory depression Polyethylene Glycol 17 gm 05/25/25 09:00 06/16/25 08:30 Polyethylene Glycol 3350 17 Gm Packet PO 17 gm DAILY [facility] Administration Multivit/Folic Acid/Iron 1 tab 05/25/25 08:00 06/16/25 08:30 Vitamin Tablet PO 1 tab DAILYWM [facility] Administration Sodium Chloride 10 ml 05/21/25 14:24 06/15/25 00:58 Sodium Chloride Flush 0.9% 10 Ml Syringe IVP 10 ml PRN PRN Administration NEEDED PER PROVIDER ORDERS Thiamine HCl 100 mg 05/30/25 09:00 06/16/25 08:30 Thiamine 100 Mg Tablet PO 100 mg DAILY [facility] Administration Objective Vital Signs/Intake & Output Reviewed Vital Signs: Yes Vital Signs: Vital Signs x48h Temp Pulse Resp BP Pulse Ox 06/16/25 07:47 36.7 C 79 16 120/74 97 Intake & Output: Intake & Output 06/13/25 06/14/25 06/15/25 06/16/25 23:59 23:59 23:59 23:59 Intake Total 2064 123 / 123 1690 / 1690 1006 / 1006 Output Total 0 / 0 500 / 500 Balance 2064 -377 / -377 169 / 1690 1006 / 1006 Objective General Appearance: positive No acute distress and Alert Eyes Bilateral: positive Normal inspection ENT: positive ENT inspection nml Neck: positive Nml inspection Respiratory: positive No respiratory distress and Breath sounds nml Cardiovascular: positive Regular rate & rhythm Abdomen: positive No distention Skin: positive Color nml, No rash and Dry Extremities: positive No pedal edema; negative Nml appearance Neurologic/Psychiatric: positive Other (Opens eyes spontaneously, moving all extremities. Not interactive with interview) Lab Results 06/14/25 04:57 06/14/25 04:57 Other Labs: Lab Results x24hrs 06/14/25 06/13/25 06/13/25 Range/Units 04:57 22:24 20:21 WBC 6.7 8.1 (4.8-10.8) x10^3/uL RBC 3.85 L 3.91 L (4.20-5.40) 10^6/uL Hgb 12.3 12.5 (12.0-16.0) g/dL Hct 36.7 L 37.0 (37.0-47.0) % MCV 95.3 94.6 (81.0-99.0) fL MCH 31.9 H 32.0 H (27.0-31.0) pg MCHC 33.5 33.8 (32.0-36.0) g/dL RDW 14.0 13.8 (12.0-15.0) % Plt Count 283 280 (130-450) 10^3/uL MPV 9.4 9.1 (7.9-10.8) fL Neut # (Auto) 3.9 4.6 (1.5-6.6) 10^3/uL Lymph # (Auto) 1.6 2.1 (1.5-3.5) 10^3/uL [place] # (Auto) 0.9 1.1 H (0.0-1.0) 10^3/uL Eos # (Auto) 0.3 0.2 (0.0-0.7) 10^3/uL Baso # (Auto) 0.0 0.0 (0.0-0.1) 10^3/uL Absolute Nucleated RBC 0.00 0.00 x10^3/uL Nucleated RBC % 0.0 0.0 /100WBC Sodium 137 137 (135-145) mmol/L Potassium 4.2 4.3 (3.5-4.5) mmol/L Chloride 101 101 (101-111) mmol/L Carbon Dioxide 32 31 (21-32) mmol/L Anion Gap 4.0 L 5.0 L (6-13) BUN 20 20 (6-20) mg/dL Creatinine 0.6 0.7 (0.6-1.3) mg/dL Estimated GFR (MDRD) 102 86 L (>89) Glucose 89 101 (74-104) mg/dL POC Whole Bld Glucose 118 (70-100) mg/dL Calcium 9.5 9.4 (8.5-10.3) mg/dL Total Bilirubin 0.4 (0.2-1.0) mg/dL AST 23 (10-42) IU/L ALT 20 (10-60) IU/L Alkaline Phosphatase 51 (42-121) IU/L Total Protein 6.2 L (6.4-8.9) g/dL Albumin 3.5 (3.2-5.5) g/dL Globulin 2.7 (2.1-4.2) g/dL Albumin/Globulin Ratio 1.3 (1.0-2.2) Sepsis Event Note (H) Evaluation Current Stage of Sepsis: Ruled out Assessment/Plan Problem List (1) Polysubstance abuse: Impression: She has been in the hospital since 05/13/2025 UDS on presentation was positive for opiates, amphetamine, methamphetamine, cocaine She is likely out of the window for any acute withdrawal. She has not had any acute changes in her mental status for at least a week. 06/13: She is having some overall tenseness and hyperactivity, likely a psychomotor side effect of her polysubstance abuse. I am starting Suboxone 8-2 mg SL daily and will monitor for effect versus toxicity 05/20 7: She did not tolerate her dose of Suboxone very well. She was very lethargic through most of yesterday afternoon and is still only responding to pain. Last night I gave her a dose of Narcan with minimal effect. I gave her a liter of IV fluids and sent her for CT head out of an abundance of caution which showed no acute changes. I have discontinued her Suboxone, and I am keeping her on continuous pulse ox to watch for respiratory depression. I have Narcan ordered as needed. Chest x-ray was performed as she had some desaturation requiring 2 L O2. This showed no acute findings. 06/15: Her mentation is much improved today as the Suboxone is washing out of her system. As we do not stock smaller doses of Suboxone, we will likely not pursue this any further. She is back to her mentation as of a few days ago. Remains medically clear. Today is nonbillable rounding 06/16: No change in condition, no change in plan. Nonbillable rounding (2) Altered mental status: Impression: Altered mentation likely secondary to polysubstance abuse UDS on presentation positive for opiates, amphetamine, methamphetamine, cocaine Patient was held in observation, and repeat CT and MRI were performed. MRI shows diffuse white matter hyperintense signal which may represent edema. Not the typical presentation of press Her altered mentation is not affected by her blood pressure, meaning it is not improved whenever her blood pressure is within normal limits Case discussed with neurology on 05/26, who recommended LP, but stated that this is likely sequela of hypoxic event from drug use. thiamine 500 mg IM 3 times daily started on 05 26,for 3 days, now on po thiamine daily 06/06 Daughter Ina made contact with RN. I also spoke with her, at this point, her mother's condition is sub acute. No need for interventions. Ina is aware her mother needs care home care. She is willing to assist with this, but neither she, nor her mother have a safe place to live. I have let social work know that Ina is available, and SW will reach out to her on 06/07. Qualifiers: Altered mental status type: stupor Qualified Code(s): R40.1 - Stupor (3) Pubic bone fracture: Impression: X-ray hip on 05/25 shows moderately displaced right inferior pubic ramus fracture with extension in the medial acetabular column and suspicion for extension to the pelvic ring. Case was discussed with on-call orthopedist, who reports this is nonoperative. She is full weightbearing as tolerated and will need a walker at discharge. If her mentation improves, we will order PT jesús, currently not able to particpate with PT.
--- NOTE | 2025-06-17 14:37 | PROVIDER PROGRESS NOTE ---
Subjective Prog Note Date Prog Note Date: 06/17/25 Subjective Pt reports feeling: No change Current Medications Current Medications Current Medications: Current Medications Generic Name Dose Route Start Last Admin Trade Name Falguni PRN Reason Stop Dose Admin Acetaminophen 650 mg 05/21/25 14:24 06/17/25 10:54 Acetaminophen 325 Mg Tablet PO 650 mg Q4HR PRN Administration Pain 1 to 4, or Fever Apixaban 2.5 mg 05/29/25 21:00 06/17/25 09:10 Apixaban 2.5 Mg Tablet PO 2.5 mg BID WEST Administration Calcium Carbonate/Glycine 500 mg 06/04/25 09:00 06/17/25 09:10 Calcium Carbonate Chew 500 Mg Tablet PO 500 mg DAILY WEST Administration Cholecalciferol 25 mcg 06/04/25 09:00 06/17/25 09:10 Cholecalciferol 25 Mcg Tablet PO 25 mcg DAILY WEST Administration Docusate Sodium 250 - 500 mg 05/24/25 09:00 06/17/25 09:10 Docusate Sodium 250 Mg Capsule PO 250 mg DAILY WEST Administration Naloxone HCl 0.4 mg 06/13/25 21:50 06/13/25 22:04 Naloxone 0.4 Mg/Ml Vial IVP 0.4 mg PRN PRN Administration respiratory depression Naloxone HCl 0.4 mg 06/13/25 22:08 Naloxone 0.4 Mg/Ml Vial IVP Q10M PRN respiratory depression Polyethylene Glycol 17 gm 05/25/25 09:00 06/17/25 09:10 Polyethylene Glycol 3350 17 Gm Packet PO 17 gm DAILY WEST Administration Multivit/Folic Acid/Iron 1 tab 05/25/25 08:00 06/17/25 09:10 Vitamin Tablet PO 1 tab DAILYWM WEST Administration Sodium Chloride 10 ml 05/21/25 14:24 06/15/25 00:58 Sodium Chloride Flush 0.9% 10 Ml Syringe IVP 10 ml PRN PRN Administration NEEDED PER PROVIDER ORDERS Thiamine HCl 100 mg 05/30/25 09:00 06/17/25 09:10 Thiamine 100 Mg Tablet PO 100 mg DAILY WEST Administration Objective Vital Signs/Intake & Output Reviewed Vital Signs: Yes Vital Signs: Vital Signs x48h Temp Pulse Resp BP Pulse Ox 06/17/25 08:01 36.5 C 110 H 20 150/86 H 95 Intake & Output: Intake & Output 06/14/25 06/15/25 06/16/25 06/17/25 23:59 23:59 23:59 23:59 Intake Total 123 / 123 1690 / 1690 7 / 218 360 / 360 Output Total 500 / 500 Balance -377 / -377 1690 / 1690 2186 / 2186 360 / 360 Objective General Appearance: positive No acute distress and Alert Eyes Bilateral: positive Normal inspection ENT: positive ENT inspection nml Neck: positive Nml inspection Respiratory: positive No respiratory distress and Breath sounds nml Cardiovascular: positive Regular rate & rhythm Abdomen: positive No distention Skin: positive Color nml, No rash and Dry Extremities: positive No pedal edema; negative Nml appearance Neurologic/Psychiatric: positive Other (Opens eyes spontaneously, moving all extremities. Not interactive with interview) Lab Results 06/14/25 04:57 06/14/25 04:57 Other Labs: Lab Results x24hrs 06/14/25 06/13/25 06/13/25 Range/Units 04:57 22:24 20:21 WBC 6.7 8.1 (4.8-10.8) x10^3/uL RBC 3.85 L 3.91 L (4.20-5.40) 10^6/uL Hgb 12.3 12.5 (12.0-16.0) g/dL Hct 36.7 L 37.0 (37.0-47.0) % MCV 95.3 94.6 (81.0-99.0) fL MCH 31.9 H 32.0 H (27.0-31.0) pg MCHC 33.5 33.8 (32.0-36.0) g/dL RDW 14.0 13.8 (12.0-15.0) % Plt Count 283 280 (130-450) 10^3/uL MPV 9.4 9.1 (7.9-10.8) fL Neut # (Auto) 3.9 4.6 (1.5-6.6) 10^3/uL Lymph # (Auto) 1.6 2.1 (1.5-3.5) 10^3/uL Elbert # (Auto) 0.9 1.1 H (0.0-1.0) 10^3/uL Eos # (Auto) 0.3 0.2 (0.0-0.7) 10^3/uL Baso # (Auto) 0.0 0.0 (0.0-0.1) 10^3/uL Absolute Nucleated RBC 0.00 0.00 x10^3/uL Nucleated RBC % 0.0 0.0 /100WBC Sodium 137 137 (135-145) mmol/L Potassium 4.2 4.3 (3.5-4.5) mmol/L Chloride 101 101 (101-111) mmol/L Carbon Dioxide 32 31 (21-32) mmol/L Anion Gap 4.0 L 5.0 L (6-13) BUN 20 20 (6-20) mg/dL Creatinine 0.6 0.7 (0.6-1.3) mg/dL Estimated GFR (MDRD) 102 86 L (>89) Glucose 89 101 (74-104) mg/dL POC Whole Bld Glucose 118 (70-100) mg/dL Calcium 9.5 9.4 (8.5-10.3) mg/dL Total Bilirubin 0.4 (0.2-1.0) mg/dL AST 23 (10-42) IU/L ALT 20 (10-60) IU/L Alkaline Phosphatase 51 (42-121) IU/L Total Protein 6.2 L (6.4-8.9) g/dL Albumin 3.5 (3.2-5.5) g/dL Globulin 2.7 (2.1-4.2) g/dL Albumin/Globulin Ratio 1.3 (1.0-2.2) Sepsis Event Note (H) Evaluation Current Stage of Sepsis: Ruled out Assessment/Plan Problem List (1) Polysubstance abuse: Impression: She has been in the hospital since 05/13/2025 UDS on presentation was positive for opiates, amphetamine, methamphetamine, cocaine She is likely out of the window for any acute withdrawal. She has not had any acute changes in her mental status for at least a week. 06/13: She is having some overall tenseness and hyperactivity, likely a psychomotor side effect of her polysubstance abuse. I am starting Suboxone 8-2 mg SL daily and will monitor for effect versus toxicity 05/20 7: She did not tolerate her dose of Suboxone very well. She was very lethargic through most of yesterday afternoon and is still only responding to pain. Last night I gave her a dose of Narcan with minimal effect. I gave her a liter of IV fluids and sent her for CT head out of an abundance of caution which showed no acute changes. I have discontinued her Suboxone, and I am keeping her on continuous pulse ox to watch for respiratory depression. I have Narcan ordered as needed. Chest x-ray was performed as she had some desaturation requiring 2 L O2. This showed no acute findings. 06/15: Her mentation is much improved today as the Suboxone is washing out of her system. As we do not stock smaller doses of Suboxone, we will likely not pursue this any further. She is back to her mentation as of a few days ago. Remains medically clear. Today is nonbillable rounding 06/16: No change in condition, no change in plan. Nonbillable rounding (2) Altered mental status: Impression: Altered mentation likely secondary to polysubstance abuse UDS on presentation positive for opiates, amphetamine, methamphetamine, cocaine Patient was held in observation, and repeat CT and MRI were performed. MRI shows diffuse white matter hyperintense signal which may represent edema. Not the typical presentation of press Her altered mentation is not affected by her blood pressure, meaning it is not improved whenever her blood pressure is within normal limits Case discussed with neurology on 05/26, who recommended LP, but stated that this is likely sequela of hypoxic event from drug use. thiamine 500 mg IM 3 times daily started on 05 26,for 3 days, now on po thiamine daily 06/06 Daughter Ina made contact with RN. I also spoke with her, at this point, her mother's condition is sub acute. No need for interventions. 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 She is willing to assist with this, but neither she, nor her mother have a safe place to live. I have let social work know that Ina is available, and SW will reach out to her on 06/07. Qualifiers: Altered mental status type: stupor Qualified Code(s): R40.1 - Stupor (3) Pubic bone fracture: Impression: X-ray hip on 05/25 shows moderately displaced right inferior pubic ramus fracture with extension in the medial acetabular column and suspicion for extension to the pelvic ring. Case was discussed with on-call orthopedist, who reports this is nonoperative. She is full weightbearing as tolerated and will need a walker at discharge. If her mentation improves, we will order PT jesús, currently not able to particpate with PT.
--- NOTE | 2025-06-18 12:27 | PROVIDER PROGRESS NOTE ---
Subjective Prog Note Date Prog Note Date: 06/18/25 Subjective Pt reports feeling: No change Current Medications Current Medications Current Medications: Current Medications Generic Name Dose Route Start Last Admin Trade Name Falguni PRN Reason Stop Dose Admin Acetaminophen 650 mg 05/21/25 14:24 06/17/25 20:47 Acetaminophen 325 Mg Tablet PO 650 mg Q4HR PRN Administration Pain 1 to 4, or Fever Apixaban 2.5 mg 05/29/25 21:00 06/18/25 09:58 Apixaban 2.5 Mg Tablet PO 2.5 mg BID WEST Administration Calcium Carbonate/Glycine 500 mg 06/04/25 09:00 06/18/25 09:58 Calcium Carbonate Chew 500 Mg Tablet PO 500 mg DAILY WEST Administration Cholecalciferol 25 mcg 06/04/25 09:00 06/18/25 09:58 Cholecalciferol 25 Mcg Tablet PO 25 mcg DAILY WEST Administration Docusate Sodium 250 - 500 mg 05/24/25 09:00 06/18/25 09:58 Docusate Sodium 250 Mg Capsule PO 250 mg DAILY WEST Administration Naloxone HCl 0.4 mg 06/13/25 21:50 06/13/25 22:04 Naloxone 0.4 Mg/Ml Vial IVP 0.4 mg PRN PRN Administration respiratory depression Naloxone HCl 0.4 mg 06/13/25 22:08 Naloxone 0.4 Mg/Ml Vial IVP Q10M PRN respiratory depression Polyethylene Glycol 17 gm 05/25/25 09:00 06/18/25 09:58 Polyethylene Glycol 3350 17 Gm Packet PO 17 gm DAILY WEST Administration Multivit/Folic Acid/Iron 1 tab 05/25/25 08:00 06/18/25 09:58 Vitamin Tablet PO 1 tab DAILYWM WEST Administration Sodium Chloride 10 ml 05/21/25 14:24 06/18/25 00:14 Sodium Chloride Flush 0.9% 10 Ml Syringe IVP 10 ml PRN PRN Administration NEEDED PER PROVIDER ORDERS Thiamine HCl 100 mg 05/30/25 09:00 06/18/25 09:58 Thiamine 100 Mg Tablet PO 100 mg DAILY WEST Administration Objective Vital Signs/Intake & Output Reviewed Vital Signs: Yes Vital Signs: Vital Signs x48h Temp Pulse Resp BP Pulse Ox 06/18/25 07:59 36.5 C 124 H 18 146/100 H 96 Intake & Output: Intake & Output 06/15/25 06/16/25 06/17/25 06/18/25 23:59 23:59 23:59 23:59 Intake Total 1690 / 1690 2187 / 2187 1198 / 1198 480 / 480 Balance 1690 / 1690 2187 / 2187 1198 / 1198 480 / 480 Objective General Appearance: positive No acute distress and Alert Eyes Bilateral: positive Normal inspection ENT: positive ENT inspection nml Neck: positive Nml inspection Respiratory: positive No respiratory distress and Breath sounds nml Cardiovascular: positive Regular rate & rhythm Abdomen: positive No distention Skin: positive Color nml, No rash and Dry Extremities: positive No pedal edema; negative Nml appearance Neurologic/Psychiatric: positive Other (Opens eyes spontaneously, moving all extremities. Not interactive with interview) Lab Results 06/14/25 04:57 06/14/25 04:57 Other Labs: Lab Results x24hrs 06/14/25 06/13/25 06/13/25 Range/Units 04:57 22:24 20:21 WBC 6.7 8.1 (4.8-10.8) x10^3/uL RBC 3.85 L 3.91 L (4.20-5.40) 10^6/uL Hgb 12.3 12.5 (12.0-16.0) g/dL Hct 36.7 L 37.0 (37.0-47.0) % MCV 95.3 94.6 (81.0-99.0) fL MCH 31.9 H 32.0 H (27.0-31.0) pg MCHC 33.5 33.8 (32.0-36.0) g/dL RDW 14.0 13.8 (12.0-15.0) % Plt Count 283 280 (130-450) 10^3/uL MPV 9.4 9.1 (7.9-10.8) fL Neut # (Auto) 3.9 4.6 (1.5-6.6) 10^3/uL Lymph # (Auto) 1.6 2.1 (1.5-3.5) 10^3/uL [place] # (Auto) 0.9 1.1 H (0.0-1.0) 10^3/uL Eos # (Auto) 0.3 0.2 (0.0-0.7) 10^3/uL Baso # (Auto) 0.0 0.0 (0.0-0.1) 10^3/uL Absolute Nucleated RBC 0.00 0.00 x10^3/uL Nucleated RBC % 0.0 0.0 /100WBC Sodium 137 137 (135-145) mmol/L Potassium 4.2 4.3 (3.5-4.5) mmol/L Chloride 101 101 (101-111) mmol/L Carbon Dioxide 32 31 (21-32) mmol/L Anion Gap 4.0 L 5.0 L (6-13) BUN 20 20 (6-20) mg/dL Creatinine 0.6 0.7 (0.6-1.3) mg/dL Estimated GFR (MDRD) 102 86 L (>89) Glucose 89 101 (74-104) mg/dL POC Whole Bld Glucose 118 (70-100) mg/dL Calcium 9.5 9.4 (8.5-10.3) mg/dL Total Bilirubin 0.4 (0.2-1.0) mg/dL AST 23 (10-42) IU/L ALT 20 (10-60) IU/L Alkaline Phosphatase 51 (42-121) IU/L Total Protein 6.2 L (6.4-8.9) g/dL Albumin 3.5 (3.2-5.5) g/dL Globulin 2.7 (2.1-4.2) g/dL Albumin/Globulin Ratio 1.3 (1.0-2.2) Sepsis Event Note (H) Evaluation Current Stage of Sepsis: Ruled out Assessment/Plan Problem List (1) Polysubstance abuse: Impression: She has been in the hospital since 05/13/2025 UDS on presentation was positive for opiates, amphetamine, methamphetamine, cocaine She is likely out of the window for any acute withdrawal. She has not had any acute changes in her mental status for at least a week. 06/13: She is having some overall tenseness and hyperactivity, likely a psychomotor side effect of her polysubstance abuse. I am starting Suboxone 8-2 mg SL daily and will monitor for effect versus toxicity 05/20 7: She did not tolerate her dose of Suboxone very well. She was very lethargic through most of yesterday afternoon and is still only responding to pain. Last night I gave her a dose of Narcan with minimal effect. I gave her a liter of IV fluids and sent her for CT head out of an abundance of caution which showed no acute changes. I have discontinued her Suboxone, and I am keeping her on continuous pulse ox to watch for respiratory depression. I have Narcan ordered as needed. Chest x-ray was performed as she had some desaturation requiring 2 L O2. This showed no acute findings. 06/15: Her mentation is much improved today as the Suboxone is washing out of her system. As we do not stock smaller doses of Suboxone, we will likely not pursue this any further. She is back to her mentation as of a few days ago. Remains medically clear. Today is nonbillable rounding 06/16: No change in condition, no change in plan. Nonbillable rounding (2) Altered mental status: Impression: Altered mentation likely secondary to polysubstance abuse UDS on presentation positive for opiates, amphetamine, methamphetamine, cocaine Patient was held in observation, and repeat CT and MRI were performed. MRI shows diffuse white matter hyperintense signal which may represent edema. Not the typical presentation of press Her altered mentation is not affected by her blood pressure, meaning it is not improved whenever her blood pressure is within normal limits Case discussed with neurology on 05/26, who recommended LP, but stated that this is likely sequela of hypoxic event from drug use. thiamine 500 mg IM 3 times daily started on 05 26,for 3 days, now on po thiamine daily 06/06 Daughter Ina made contact with RN. I also spoke with her, at this point, her mother's condition is sub acute. No need for interventions. 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 She is willing to assist with this, but neither she, nor her mother have a safe place to live. I have let social work know that Ina is available, and SW will reach out to her on 06/07. Qualifiers: Altered mental status type: stupor Qualified Code(s): R40.1 - Stupor (3) Pubic bone fracture: Impression: X-ray hip on 05/25 shows moderately displaced right inferior pubic ramus fracture with extension in the medial acetabular column and suspicion for extension to the pelvic ring. Case was discussed with on-call orthopedist, who reports this is nonoperative. She is full weightbearing as tolerated and will need a walker at discharge. If her mentation improves, we will order PT jesús, currently not able to particpate with PT.
--- NOTE | 2025-06-18 13:14 | PT Plan of Care ---
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 PMH significant for polysubstance use with apparent neuromuscular dysfunction related to this. Please see medical record for further details. Cleared for eval by hospitalist. Fx is non-operative and WBAT with FWW per ortho. Per chart review pt was indep in community prior to admit, unclear on how mobile or whether she used AD. Upon PT eval, met supine in bed demonstrating repetitive motions of BUE > BLE with choreic-like mvmt pattern. R eye gaze preference but able to turn head toward L & R. Inconsistently follows direct, 1 step cues < 25% of time. Non-verbal and unable to establish Y/N or other signal for communication. Requires maxA to dep for all transfers. Unable to sit unsupported with L trunk lean and L lateral LOB in seated. Pt presenting with significantly neuromuscular and cognitive impairments that prohibit her participation in PT. She does not appear to have good rehab potential. Pt should continue to transfer to chair with nsg for 1-3 meals daily as able. She is presenting as total care for ADLs and mobility and will require LTC placement upon dc from hospital. PT Plan of Care Frequency Evaluation only, no further P.T. Discharge Recommendations Discharge Location LTC Transport Needs at Discharge [facility]
[2025-06-18] MEDS: CYCLOBENZAPRINE 10 MG TABLET PO PRN (14:01)
--- NOTE | 2025-06-19 12:30 | PROVIDER PROGRESS NOTE ---
Subjective Prog Note Date Prog Note Date: 06/19/25 Subjective Pt reports feeling: No change Current Medications Current Medications Current Medications: Current Medications Generic Name Dose Route Start Last Admin Trade Name Falguni PRN Reason Stop Dose Admin Acetaminophen 650 mg 05/21/25 14:24 06/18/25 21:03 Acetaminophen 325 Mg Tablet PO 650 mg Q4HR PRN Administration Pain 1 to 4, or Fever Apixaban 2.5 mg 05/29/25 21:00 06/19/25 08:58 Apixaban 2.5 Mg Tablet PO 2.5 mg BID WEST Administration Calcium Carbonate/Glycine 500 mg 06/04/25 09:00 06/19/25 08:58 Calcium Carbonate Chew 500 Mg Tablet PO 500 mg DAILY WEST Administration Cholecalciferol 25 mcg 06/04/25 09:00 06/19/25 08:58 Cholecalciferol 25 Mcg Tablet PO 25 mcg DAILY WEST Administration Cyclobenzaprine HCl 10 mg 06/18/25 13:19 06/18/25 14:01 Cyclobenzaprine 10 Mg Tablet PO 10 mg TID PRN Administration Spasms Docusate Sodium 250 - 500 mg 05/24/25 09:00 06/19/25 08:58 Docusate Sodium 250 Mg Capsule PO 250 mg DAILY WEST Administration Naloxone HCl 0.4 mg 06/13/25 21:50 06/13/25 22:04 Naloxone 0.4 Mg/Ml Vial IVP 0.4 mg PRN PRN Administration respiratory depression Naloxone HCl 0.4 mg 06/13/25 22:08 Naloxone 0.4 Mg/Ml Vial IVP Q10M PRN respiratory depression Polyethylene Glycol 17 gm 05/25/25 09:00 06/19/25 08:58 Polyethylene Glycol 3350 17 Gm Packet PO 17 gm DAILY WEST Administration Multivit/Folic Acid/Iron 1 tab 05/25/25 08:00 06/19/25 08:58 Vitamin Tablet PO 1 tab DAILYWM WEST Administration Sodium Chloride 10 ml 05/21/25 14:24 06/18/25 00:14 Sodium Chloride Flush 0.9% 10 Ml Syringe IVP 10 ml PRN PRN Administration NEEDED PER PROVIDER ORDERS Thiamine HCl 100 mg 05/30/25 09:00 06/19/25 08:58 Thiamine 100 Mg Tablet PO 100 mg DAILY WEST Administration Objective Vital Signs/Intake & Output Reviewed Vital Signs: Yes Vital Signs: Vital Signs x48h Temp Pulse Resp BP Pulse Ox 06/19/25 08:25 36.7 C 108 H 18 110/75 95 Intake & Output: Intake & Output 06/16/25 06/17/25 06/18/25 06/19/25 23:59 23:59 23:59 23:59 Intake Total 2187 / 2187 1198 / 1198 1550 / 1550 1432 / 1432 Balance 2187 / 2187 1198 / 1198 1550 / 1550 1432 / 1432 Weight (kg) 44.5 kg Objective General Appearance: positive No acute distress and Alert Eyes Bilateral: positive Normal inspection ENT: positive ENT inspection nml Neck: positive Nml inspection Respiratory: positive No respiratory distress and Breath sounds nml Cardiovascular: positive Regular rate & rhythm Abdomen: positive No distention Skin: positive Color nml, No rash and Dry Extremities: positive No pedal edema; negative Nml appearance Neurologic/Psychiatric: positive Other (Opens eyes spontaneously, moving all extremities. Not interactive with interview) Lab Results 06/14/25 04:57 06/14/25 04:57 Other Labs: Lab Results x24hrs 06/14/25 06/13/25 06/13/25 Range/Units 04:57 22:24 20:21 WBC 6.7 8.1 (4.8-10.8) x10^3/uL RBC 3.85 L 3.91 L (4.20-5.40) 10^6/uL Hgb 12.3 12.5 (12.0-16.0) g/dL Hct 36.7 L 37.0 (37.0-47.0) % MCV 95.3 94.6 (81.0-99.0) fL MCH 31.9 H 32.0 H (27.0-31.0) pg MCHC 33.5 33.8 (32.0-36.0) g/dL RDW 14.0 13.8 (12.0-15.0) % Plt Count 283 280 (130-450) 10^3/uL MPV 9.4 9.1 (7.9-10.8) fL Neut # (Auto) 3.9 4.6 (1.5-6.6) 10^3/uL Lymph # (Auto) 1.6 2.1 (1.5-3.5) 10^3/uL [place] # (Auto) 0.9 1.1 H (0.0-1.0) 10^3/uL Eos # (Auto) 0.3 0.2 (0.0-0.7) 10^3/uL Baso # (Auto) 0.0 0.0 (0.0-0.1) 10^3/uL Absolute Nucleated RBC 0.00 0.00 x10^3/uL Nucleated RBC % 0.0 0.0 /100WBC Sodium 137 137 (135-145) mmol/L Potassium 4.2 4.3 (3.5-4.5) mmol/L Chloride 101 101 (101-111) mmol/L Carbon Dioxide 32 31 (21-32) mmol/L Anion Gap 4.0 L 5.0 L (6-13) BUN 20 20 (6-20) mg/dL Creatinine 0.6 0.7 (0.6-1.3) mg/dL Estimated GFR (MDRD) 102 86 L (>89) Glucose 89 101 (74-104) mg/dL POC Whole Bld Glucose 118 (70-100) mg/dL Calcium 9.5 9.4 (8.5-10.3) mg/dL Total Bilirubin 0.4 (0.2-1.0) mg/dL AST 23 (10-42) IU/L ALT 20 (10-60) IU/L Alkaline Phosphatase 51 (42-121) IU/L Total Protein 6.2 L (6.4-8.9) g/dL Albumin 3.5 (3.2-5.5) g/dL Globulin 2.7 (2.1-4.2) g/dL Albumin/Globulin Ratio 1.3 (1.0-2.2) Sepsis Event Note (H) Evaluation Current Stage of Sepsis: Ruled out Assessment/Plan Problem List (1) Polysubstance abuse: Impression: She has been in the hospital since 05/13/2025 UDS on presentation was positive for opiates, amphetamine, methamphetamine, cocaine She is likely out of the window for any acute withdrawal. She has not had any acute changes in her mental status for at least a week. 06/13: She is having some overall tenseness and hyperactivity, likely a psychomotor side effect of her polysubstance abuse. I am starting Suboxone 8-2 mg SL daily and will monitor for effect versus toxicity 05/20: She did not tolerate her dose of Suboxone very well. She was very lethargic through most of yesterday afternoon and is still only responding to pain. Last night I gave her a dose of Narcan with minimal effect. I gave her a liter of IV fluids and sent her for CT head out of an abundance of caution which showed no acute changes. I have discontinued her Suboxone, and I am keeping her on continuous pulse ox to watch for respiratory depression. I have Narcan ordered as needed. Chest x-ray was performed as she had some desaturation requiring 2 L O2. This showed no acute findings. 06/15: Her mentation is much improved today as the Suboxone is washing out of her system. As we do not stock smaller doses of Suboxone, we will likely not pursue this any further. She is back to her mentation as of a few days ago. Remains medically clear. Today is nonbillable rounding 06/16: No change in condition, no change in plan. Nonbillable rounding (2) Altered mental status: Impression: Altered mentation likely secondary to polysubstance abuse UDS on presentation positive for opiates, amphetamine, methamphetamine, cocaine Patient was held in observation, and repeat CT and MRI were performed. MRI shows diffuse white matter hyperintense signal which may represent edema. Not the typical presentation of press Her altered mentation is not affected by her blood pressure, meaning it is not improved whenever her blood pressure is within normal limits Case discussed with neurology on 05/26, who recommended LP, but stated that this is likely sequela of hypoxic event from drug use. thiamine 500 mg IM 3 times daily started on 05 26,for 3 days, now on po thiamine daily 06/06 Daughter Ina made contact with RN. I also spoke with her, at this point, her mother's condition is sub acute. No need for interventions. Ina is aware her mother needs skilled nursing care. She is willing to assist with this, but neither she, nor her mother have a safe place to live. I have let social work know that Ina is available, and SW will reach out to her on 06/07. Qualifiers: Altered mental status type: stupor Qualified Code(s): R40.1 - Stupor (3) Pubic bone fracture: Impression: X-ray hip on 05/25 shows moderately displaced right inferior pubic ramus fracture with extension in the medial acetabular column and suspicion for extension to the pelvic ring. Case was discussed with on-call orthopedist, who reports this is nonoperative. She is full weightbearing as tolerated and will need a walker at discharge. If her mentation improves, we will order PT eval, currently not able to particpate with PT.
--- NOTE | 2025-06-20 13:05 | PROVIDER PROGRESS NOTE ---
Subjective Prog Note Date Prog Note Date: 06/20/25 Subjective Pt reports feeling: No change Current Medications Current Medications Current Medications: Current Medications Generic Name Dose Route Start Last Admin Trade Name Falguni PRN Reason Stop Dose Admin Acetaminophen 650 mg 05/21/25 14:24 06/18/25 21:03 Acetaminophen 325 Mg Tablet PO 650 mg Q4HR PRN Administration Pain 1 to 4, or Fever Apixaban 2.5 mg 05/29/25 21:00 06/20/25 08:07 Apixaban 2.5 Mg Tablet PO 2.5 mg BID WEST Administration Calcium Carbonate/Glycine 500 mg 06/04/25 09:00 06/20/25 08:07 Calcium Carbonate Chew 500 Mg Tablet PO 500 mg DAILY WEST Administration Cholecalciferol 25 mcg 06/04/25 09:00 06/20/25 08:07 Cholecalciferol 25 Mcg Tablet PO 25 mcg DAILY WEST Administration Cyclobenzaprine HCl 10 mg 06/18/25 13:19 06/18/25 14:01 Cyclobenzaprine 10 Mg Tablet PO 10 mg TID PRN Administration Spasms Docusate Sodium 250 - 500 mg 05/24/25 09:00 06/20/25 08:07 Docusate Sodium 250 Mg Capsule PO 250 mg DAILY WEST Administration Naloxone HCl 0.4 mg 06/13/25 21:50 06/13/25 22:04 Naloxone 0.4 Mg/Ml Vial IVP 0.4 mg PRN PRN Administration respiratory depression Naloxone HCl 0.4 mg 06/13/25 22:08 Naloxone 0.4 Mg/Ml Vial IVP Q10M PRN respiratory depression Polyethylene Glycol 17 gm 05/25/25 09:00 06/20/25 08:07 Polyethylene Glycol 3350 17 Gm Packet PO 17 gm DAILY WEST Administration Multivit/Folic Acid/Iron 1 tab 05/25/25 08:00 06/20/25 08:07 Vitamin Tablet PO 1 tab DAILYWM WEST Administration Sodium Chloride 10 ml 05/21/25 14:24 06/18/25 00:14 Sodium Chloride Flush 0.9% 10 Ml Syringe IVP 10 ml PRN PRN Administration NEEDED PER PROVIDER ORDERS Thiamine HCl 100 mg 05/30/25 09:00 06/20/25 08:07 Thiamine 100 Mg Tablet PO 100 mg DAILY WEST Administration Objective Vital Signs/Intake & Output Reviewed Vital Signs: Yes Vital Signs: Vital Signs x48h Temp Pulse Resp BP Pulse Ox 06/20/25 08:30 36.7 C 100 16 160/103 H 96 Intake & Output: Intake & Output 06/17/25 06/18/25 06/19/25 06/20/25 23:59 23:59 23:59 23:59 Intake Total 1198 / 1198 1550 / 1550 1652 / 1652 600 / 600 Balance 1198 / 1198 1550 / 1550 1652 / 1652 600 / 600 Weight (kg) 44.5 kg 43 kg Objective General Appearance: positive No acute distress and Alert Eyes Bilateral: positive Normal inspection ENT: positive ENT inspection nml Neck: positive Nml inspection Respiratory: positive No respiratory distress and Breath sounds nml Cardiovascular: positive Regular rate & rhythm Abdomen: positive No distention Skin: positive Color nml, No rash and Dry Extremities: positive No pedal edema; negative Nml appearance Neurologic/Psychiatric: positive Other (Opens eyes spontaneously, moving all extremities. Not interactive with interview) Lab Results 06/14/25 04:57 06/14/25 04:57 Other Labs: Lab Results x24hrs 06/14/25 06/13/25 06/13/25 Range/Units 04:57 22:24 20:21 WBC 6.7 8.1 (4.8-10.8) x10^3/uL RBC 3.85 L 3.91 L (4.20-5.40) 10^6/uL Hgb 12.3 12.5 (12.0-16.0) g/dL Hct 36.7 L 37.0 (37.0-47.0) % MCV 95.3 94.6 (81.0-99.0) fL MCH 31.9 H 32.0 H (27.0-31.0) pg MCHC 33.5 33.8 (32.0-36.0) g/dL RDW 14.0 13.8 (12.0-15.0) % Plt Count 283 280 (130-450) 10^3/uL MPV 9.4 9.1 (7.9-10.8) fL Neut # (Auto) 3.9 4.6 (1.5-6.6) 10^3/uL Lymph # (Auto) 1.6 2.1 (1.5-3.5) 10^3/uL [place] # (Auto) 0.9 1.1 H (0.0-1.0) 10^3/uL Eos # (Auto) 0.3 0.2 (0.0-0.7) 10^3/uL Baso # (Auto) 0.0 0.0 (0.0-0.1) 10^3/uL Absolute Nucleated RBC 0.00 0.00 x10^3/uL Nucleated RBC % 0.0 0.0 /100WBC Sodium 137 137 (135-145) mmol/L Potassium 4.2 4.3 (3.5-4.5) mmol/L Chloride 101 101 (101-111) mmol/L Carbon Dioxide 32 31 (21-32) mmol/L Anion Gap 4.0 L 5.0 L (6-13) BUN 20 20 (6-20) mg/dL Creatinine 0.6 0.7 (0.6-1.3) mg/dL Estimated GFR (MDRD) 102 86 L (>89) Glucose 89 101 (74-104) mg/dL POC Whole Bld Glucose 118 (70-100) mg/dL Calcium 9.5 9.4 (8.5-10.3) mg/dL Total Bilirubin 0.4 (0.2-1.0) mg/dL AST 23 (10-42) IU/L ALT 20 (10-60) IU/L Alkaline Phosphatase 51 (42-121) IU/L Total Protein 6.2 L (6.4-8.9) g/dL Albumin 3.5 (3.2-5.5) g/dL Globulin 2.7 (2.1-4.2) g/dL Albumin/Globulin Ratio 1.3 (1.0-2.2) Sepsis Event Note (H) Evaluation Current Stage of Sepsis: Ruled out Assessment/Plan Problem List (1) Polysubstance abuse: Impression: She has been in the hospital since 05/13/2025 UDS on presentation was positive for opiates, amphetamine, methamphetamine, cocaine She is likely out of the window for any acute withdrawal. She has not had any acute changes in her mental status for at least a week. 06/13: She is having some overall tenseness and hyperactivity, likely a psychomotor side effect of her polysubstance abuse. I am starting Suboxone 8-2 mg SL daily and will monitor for effect versus toxicity 05/20 7: She did not tolerate her dose of Suboxone very well. She was very lethargic through most of yesterday afternoon and is still only responding to pain. Last night I gave her a dose of Narcan with minimal effect. I gave her a liter of IV fluids and sent her for CT head out of an abundance of caution which showed no acute changes. I have discontinued her Suboxone, and I am keeping her on continuous pulse ox to watch for respiratory depression. I have Narcan ordered as needed. Chest x-ray was performed as she had some desaturation requiring 2 L O2. This showed no acute findings. 06/15: Her mentation is much improved today as the Suboxone is washing out of her system. As we do not stock smaller doses of Suboxone, we will likely not pursue this any further. She is back to her mentation as of a few days ago. Remains medically clear. Today is nonbillable rounding 06/16: No change in condition, no change in plan. Nonbillable rounding (2) Altered mental status: Impression: Altered mentation likely secondary to polysubstance abuse UDS on presentation positive for opiates, amphetamine, methamphetamine, cocaine Patient was held in observation, and repeat CT and MRI were performed. MRI shows diffuse white matter hyperintense signal which may represent edema. Not the typical presentation of press Her altered mentation is not affected by her blood pressure, meaning it is not improved whenever her blood pressure is within normal limits Case discussed with neurology on 05/26, who recommended LP, but stated that this is likely sequela of hypoxic event from drug use. thiamine 500 mg IM 3 times daily started on 05 26,for 3 days, now on po thiamine daily 06/06 Daughter Ina made contact with RN. I also spoke with her, at this point, her mother's condition is sub acute. No need for interventions. Ina is aware her mother needs shelter care. She is willing to assist with this, but neither she, nor her mother have a safe place to live. I have let social work know that Ina is available, and SW will reach out to her on 06/07. Qualifiers: Altered mental status type: stupor Qualified Code(s): R40.1 - Stupor (3) Pubic bone fracture: Impression: X-ray hip on 05/25 shows moderately displaced right inferior pubic ramus fracture with extension in the medial acetabular column and suspicion for extension to the pelvic ring. Case was discussed with on-call orthopedist, who reports this is nonoperative. She is full weightbearing as tolerated and will need a walker at discharge. If her mentation improves, we will order PT eval, currently not able to particpate with PT. (4) Malnutrition: Impression: Severe protein calorie malnutrition given obvious muscle wasting, loss of subcutaneous fat, bedridden, BMI 15.7. Nursing assisting with meals. Nutrition following Qualifiers: Malnutrition type: unspecified type Qualified Code(s): E46 - Unspecified protein-calorie malnutrition
--- NOTE | 2025-06-21 14:12 | PROVIDER PROGRESS NOTE ---
Subjective Prog Note Date Prog Note Date: 06/21/25 Subjective Pt reports feeling: No change Current Medications Current Medications Current Medications: Current Medications Generic Name Dose Route Start Last Admin Trade Name Falguni PRN Reason Stop Dose Admin Acetaminophen 650 mg 05/21/25 14:24 06/18/25 21:03 Acetaminophen 325 Mg Tablet PO 650 mg Q4HR PRN Administration Pain 1 to 4, or Fever Apixaban 2.5 mg 05/29/25 21:00 06/21/25 09:00 Apixaban 2.5 Mg Tablet PO 2.5 mg BID WEST Administration Calcium Carbonate/Glycine 500 mg 06/04/25 09:00 06/21/25 09:00 Calcium Carbonate Chew 500 Mg Tablet PO 500 mg DAILY WEST Administration Cholecalciferol 25 mcg 06/04/25 09:00 06/21/25 09:00 Cholecalciferol 25 Mcg Tablet PO 25 mcg DAILY WEST Administration Cyclobenzaprine HCl 10 mg 06/18/25 13:19 06/18/25 14:01 Cyclobenzaprine 10 Mg Tablet PO 10 mg TID PRN Administration Spasms Docusate Sodium 250 - 500 mg 05/24/25 09:00 06/21/25 09:00 Docusate Sodium 250 Mg Capsule PO 250 mg DAILY WEST Administration Naloxone HCl 0.4 mg 06/13/25 21:50 06/13/25 22:04 Naloxone 0.4 Mg/Ml Vial IVP 0.4 mg PRN PRN Administration respiratory depression Naloxone HCl 0.4 mg 06/13/25 22:08 Naloxone 0.4 Mg/Ml Vial IVP Q10M PRN respiratory depression Polyethylene Glycol 17 gm 05/25/25 09:00 06/21/25 09:00 Polyethylene Glycol 3350 17 Gm Packet PO 17 gm DAILY WEST Administration Multivit/Folic Acid/Iron 1 tab 05/25/25 08:00 06/21/25 09:00 Vitamin Tablet PO 1 tab DAILYWM WEST Administration Sodium Chloride 10 ml 05/21/25 14:24 06/18/25 00:14 Sodium Chloride Flush 0.9% 10 Ml Syringe IVP 10 ml PRN PRN Administration NEEDED PER PROVIDER ORDERS Thiamine HCl 100 mg 05/30/25 09:00 06/21/25 09:00 Thiamine 100 Mg Tablet PO 100 mg DAILY WEST Administration Objective Vital Signs/Intake & Output Reviewed Vital Signs: Yes Vital Signs: Vital Signs x48h Temp Pulse Resp BP Pulse Ox 06/21/25 07:58 36.5 C 115 H 16 155/92 H 94 Intake & Output: Intake & Output 06/18/25 06/19/25 06/20/25 06/21/25 23:59 23:59 23:59 23:59 Intake Total 1550 / 1550 1652 / 1652 1077 / 1077 1800 / 1800 Balance 1550 / 1550 1652 / 1652 1077 / 1077 1800 / 1800 Weight (kg) 44.5 kg 43 kg 41.5 kg Objective General Appearance: positive No acute distress and Alert Eyes Bilateral: positive Normal inspection ENT: positive ENT inspection nml Neck: positive Nml inspection Respiratory: positive No respiratory distress and Breath sounds nml Cardiovascular: positive Regular rate & rhythm Abdomen: positive No distention Skin: positive Color nml, No rash and Dry Extremities: positive No pedal edema; negative Nml appearance Neurologic/Psychiatric: positive Other (Opens eyes spontaneously, moving all extremities. Not interactive with interview) Lab Results 06/14/25 04:57 06/14/25 04:57 Other Labs: Lab Results x24hrs 06/14/25 06/13/25 06/13/25 Range/Units 04:57 22:24 20:21 WBC 6.7 8.1 (4.8-10.8) x10^3/uL RBC 3.85 L 3.91 L (4.20-5.40) 10^6/uL Hgb 12.3 12.5 (12.0-16.0) g/dL Hct 36.7 L 37.0 (37.0-47.0) % MCV 95.3 94.6 (81.0-99.0) fL MCH 31.9 H 32.0 H (27.0-31.0) pg MCHC 33.5 33.8 (32.0-36.0) g/dL RDW 14.0 13.8 (12.0-15.0) % Plt Count 283 280 (130-450) 10^3/uL MPV 9.4 9.1 (7.9-10.8) fL Neut # (Auto) 3.9 4.6 (1.5-6.6) 10^3/uL Lymph # (Auto) 1.6 2.1 (1.5-3.5) 10^3/uL [place] # (Auto) 0.9 1.1 H (0.0-1.0) 10^3/uL Eos # (Auto) 0.3 0.2 (0.0-0.7) 10^3/uL Baso # (Auto) 0.0 0.0 (0.0-0.1) 10^3/uL Absolute Nucleated RBC 0.00 0.00 x10^3/uL Nucleated RBC % 0.0 0.0 /100WBC Sodium 137 137 (135-145) mmol/L Potassium 4.2 4.3 (3.5-4.5) mmol/L Chloride 101 101 (101-111) mmol/L Carbon Dioxide 32 31 (21-32) mmol/L Anion Gap 4.0 L 5.0 L (6-13) BUN 20 20 (6-20) mg/dL Creatinine 0.6 0.7 (0.6-1.3) mg/dL Estimated GFR (MDRD) 102 86 L (>89) Glucose 89 101 (74-104) mg/dL POC Whole Bld Glucose 118 (70-100) mg/dL Calcium 9.5 9.4 (8.5-10.3) mg/dL Total Bilirubin 0.4 (0.2-1.0) mg/dL AST 23 (10-42) IU/L ALT 20 (10-60) IU/L Alkaline Phosphatase 51 (42-121) IU/L Total Protein 6.2 L (6.4-8.9) g/dL Albumin 3.5 (3.2-5.5) g/dL Globulin 2.7 (2.1-4.2) g/dL Albumin/Globulin Ratio 1.3 (1.0-2.2) Sepsis Event Note (H) Evaluation Current Stage of Sepsis: Ruled out Assessment/Plan Problem List (1) Polysubstance abuse: Impression: She has been in the hospital since 05/13/2025 UDS on presentation was positive for opiates, amphetamine, methamphetamine, cocaine She is likely out of the window for any acute withdrawal. She has not had any acute changes in her mental status for at least a week. 06/13: She is having some overall tenseness and hyperactivity, likely a psychomotor side effect of her polysubstance abuse. I am starting Suboxone 8-2 mg SL daily and will monitor for effect versus toxicity 05/20: She did not tolerate her dose of Suboxone very well. She was very lethargic through most of yesterday afternoon and is still only responding to pain. Last night I gave her a dose of Narcan with minimal effect. I gave her a liter of IV fluids and sent her for CT head out of an abundance of caution which showed no acute changes. I have discontinued her Suboxone, and I am keeping her on continuous pulse ox to watch for respiratory depression. I have Narcan ordered as needed. Chest x-ray was performed as she had some desaturation requiring 2 L O2. This showed no acute findings. 06/15: Her mentation is much improved today as the Suboxone is washing out of her system. As we do not stock smaller doses of Suboxone, we will likely not pursue this any further. She is back to her mentation as of a few days ago. Remains medically clear. Today is nonbillable rounding 06/16: No change in condition, no change in plan. Nonbillable rounding (2) Altered mental status: Impression: Altered mentation likely secondary to polysubstance abuse UDS on presentation positive for opiates, amphetamine, methamphetamine, cocaine Patient was held in observation, and repeat CT and MRI were performed. MRI shows diffuse white matter hyperintense signal which may represent edema. Not the typical presentation of press Her altered mentation is not affected by her blood pressure, meaning it is not improved whenever her blood pressure is within normal limits Case discussed with neurology on 05/26, who recommended LP, but stated that this is likely sequela of hypoxic event from drug use. thiamine 500 mg IM 3 times daily started on 05 26,for 3 days, now on po thiamine daily 06/06 Daughter Ina made contact with RN. I also spoke with her, at this point, her mother's condition is sub acute. No need for interventions. Ina is aware her mother needs [facility] care. She is willing to assist with this, but neither she, nor her mother have a safe place to live. I have let social work know that Ina is available, and SW will reach out to her on 06/07. Qualifiers: Altered mental status type: stupor Qualified Code(s): R40.1 - Stupor (3) Pubic bone fracture: Impression: X-ray hip on 05/25 shows moderately displaced right inferior pubic ramus fracture with extension in the medial acetabular column and suspicion for extension to the pelvic ring. Case was discussed with on-call orthopedist, who reports this is nonoperative. She is full weightbearing as tolerated and will need a walker at discharge. If her mentation improves, we will order PT eval, currently not able to particpate with PT. (4) Malnutrition: Impression: Severe protein calorie malnutrition given obvious muscle wasting, loss of subcutaneous fat, bedridden, BMI 15.7. Nursing assisting with meals. Nutrition following Qualifiers: Malnutrition type: unspecified type Qualified Code(s): E46 - Unspecified protein-calorie malnutrition
--- NOTE | 2025-06-22 11:13 | PROVIDER PROGRESS NOTE ---
Subjective Prog Note Date Prog Note Date: 06/22/25 Subjective Pt reports feeling: No change Current Medications Current Medications Current Medications: Current Medications Generic Name Dose Route Start Last Admin Trade Name Falguni PRN Reason Stop Dose Admin Acetaminophen 650 mg 05/21/25 14:24 06/18/25 21:03 Acetaminophen 325 Mg Tablet PO 650 mg Q4HR PRN Administration Pain 1 to 4, or Fever Apixaban 2.5 mg 05/29/25 21:00 06/22/25 08:15 Apixaban 2.5 Mg Tablet PO 2.5 mg BID WEST Administration Calcium Carbonate/Glycine 500 mg 06/04/25 09:00 06/22/25 08:15 Calcium Carbonate Chew 500 Mg Tablet PO 500 mg DAILY WEST Administration Cholecalciferol 25 mcg 06/04/25 09:00 06/22/25 08:16 Cholecalciferol 25 Mcg Tablet PO 25 mcg DAILY WEST Administration Clindamycin HCl 300 mg 06/22/25 14:00 Clindamycin 150 Mg Capsule PO Q8HR WEST Cyclobenzaprine HCl 10 mg 06/18/25 13:19 06/18/25 14:01 Cyclobenzaprine 10 Mg Tablet PO 10 mg TID PRN Administration Spasms Docusate Sodium 250 - 500 mg 05/24/25 09:00 06/22/25 08:15 Docusate Sodium 250 Mg Capsule PO 250 mg DAILY WEST Administration Naloxone HCl 0.4 mg 06/13/25 21:50 06/13/25 22:04 Naloxone 0.4 Mg/Ml Vial IVP 0.4 mg PRN PRN Administration respiratory depression Naloxone HCl 0.4 mg 06/13/25 22:08 Naloxone 0.4 Mg/Ml Vial IVP Q10M PRN respiratory depression Polyethylene Glycol 17 gm 05/25/25 09:00 06/22/25 08:16 Polyethylene Glycol 3350 17 Gm Packet PO 17 gm DAILY WEST Administration Multivit/Folic Acid/Iron 1 tab 05/25/25 08:00 06/22/25 08:16 Vitamin Tablet PO 1 tab DAILYWM WEST Administration Sodium Chloride 10 ml 05/21/25 14:24 06/18/25 00:14 Sodium Chloride Flush 0.9% 10 Ml Syringe IVP 10 ml PRN PRN Administration NEEDED PER PROVIDER ORDERS Thiamine HCl 100 mg 05/30/25 09:00 06/22/25 08:16 Thiamine 100 Mg Tablet PO 100 mg DAILY WEST Administration Objective Vital Signs/Intake & Output Reviewed Vital Signs: Yes Vital Signs: Vital Signs x48h Temp Pulse Resp BP Pulse Ox 06/22/25 09:56 36.2 C L 111 H 20 146/95 H 97 Intake & Output: Intake & Output 06/19/25 06/20/25 06/21/25 06/22/25 23:59 23:59 23:59 23:59 Intake Total 1652 / 1652 1077 / 1077 2260 / 2260 360 / 360 Balance 1652 / 1652 1077 / 1077 2260 / 2260 360 / 360 Weight (kg) 44.5 kg 43 kg 41.5 kg 44 kg Objective General Appearance: positive No acute distress and Alert Eyes Bilateral: positive Normal inspection ENT: positive ENT inspection nml Neck: positive Nml inspection Respiratory: positive No respiratory distress and Breath sounds nml Cardiovascular: positive Regular rate & rhythm Abdomen: positive No distention Skin: positive Color nml, No rash, Dry and Other (Area of redness about the left elbow) Extremities: positive No pedal edema; negative Nml appearance Neurologic/Psychiatric: positive Other (Opens eyes spontaneously, moving all extremities. Not interactive with interview) Lab Results 06/14/25 04:57 06/14/25 04:57 Other Labs: Lab Results x24hrs 06/14/25 06/13/25 06/13/25 Range/Units 04:57 22:24 20:21 WBC 6.7 8.1 (4.8-10.8) x10^3/uL RBC 3.85 L 3.91 L (4.20-5.40) 10^6/uL Hgb 12.3 12.5 (12.0-16.0) g/dL Hct 36.7 L 37.0 (37.0-47.0) % MCV 95.3 94.6 (81.0-99.0) fL MCH 31.9 H 32.0 H (27.0-31.0) pg MCHC 33.5 33.8 (32.0-36.0) g/dL RDW 14.0 13.8 (12.0-15.0) % Plt Count 283 280 (130-450) 10^3/uL MPV 9.4 9.1 (7.9-10.8) fL Neut # (Auto) 3.9 4.6 (1.5-6.6) 10^3/uL Lymph # (Auto) 1.6 2.1 (1.5-3.5) 10^3/uL [place] # (Auto) 0.9 1.1 H (0.0-1.0) 10^3/uL Eos # (Auto) 0.3 0.2 (0.0-0.7) 10^3/uL Baso # (Auto) 0.0 0.0 (0.0-0.1) 10^3/uL Absolute Nucleated RBC 0.00 0.00 x10^3/uL Nucleated RBC % 0.0 0.0 /100WBC Sodium 137 137 (135-145) mmol/L Potassium 4.2 4.3 (3.5-4.5) mmol/L Chloride 101 101 (101-111) mmol/L Carbon Dioxide 32 31 (21-32) mmol/L Anion Gap 4.0 L 5.0 L (6-13) BUN 20 20 (6-20) mg/dL Creatinine 0.6 0.7 (0.6-1.3) mg/dL Estimated GFR (MDRD) 102 86 L (>89) Glucose 89 101 (74-104) mg/dL POC Whole Bld Glucose 118 (70-100) mg/dL Calcium 9.5 9.4 (8.5-10.3) mg/dL Total Bilirubin 0.4 (0.2-1.0) mg/dL AST 23 (10-42) IU/L ALT 20 (10-60) IU/L Alkaline Phosphatase 51 (42-121) IU/L Total Protein 6.2 L (6.4-8.9) g/dL Albumin 3.5 (3.2-5.5) g/dL Globulin 2.7 (2.1-4.2) g/dL Albumin/Globulin Ratio 1.3 (1.0-2.2) Sepsis Event Note (H) Evaluation Current Stage of Sepsis: Ruled out Assessment/Plan Problem List (1) Cellulitis: Impression: Area of redness about the left elbow No palpable fluctuance Ordered clindamycin 300 mg p.o. every 8 hours She is still medically clear Qualifiers: Laterality: unspecified laterality Site of cellulitis: extremity Site of cellulitis of extremity: lower extremity Qualified Code(s): L03.119 - Cellulitis of unspecified part of limb (2) Polysubstance abuse: Impression: She has been in the hospital since 05/13/2025 UDS on presentation was positive for opiates, amphetamine, methamphetamine, cocaine She is likely out of the window for any acute withdrawal. She has not had any acute changes in her mental status for at least a week. 06/13: She is having some overall tenseness and hyperactivity, likely a psychomotor side effect of her polysubstance abuse. I am starting Suboxone 8-2 mg SL daily and will monitor for effect versus toxicity 05/20 7: She did not tolerate her dose of Suboxone very well. She was very lethargic through most of yesterday afternoon and is still only responding to pain. Last night I gave her a dose of Narcan with minimal effect. I gave her a liter of IV fluids and sent her for CT head out of an abundance of caution which showed no acute changes. I have discontinued her Suboxone, and I am keeping her on continuous pulse ox to watch for respiratory depression. I have Narcan ordered as needed. Chest x-ray was performed as she had some desaturation requiring 2 L O2. This showed no acute findings. 06/15: Her mentation is much improved today as the Suboxone is washing out of her system. As we do not stock smaller doses of Suboxone, we will likely not pursue this any further. She is back to her mentation as of a few days ago. Remains medically clear. Today is nonbillable rounding 06/16: No change in condition, no change in plan. (3) Altered mental status: Impression: Altered mentation likely secondary to polysubstance abuse UDS on presentation positive for opiates, amphetamine, methamphetamine, cocaine Patient was held in observation, and repeat CT and MRI were performed. MRI shows diffuse white matter hyperintense signal which may represent edema. Not the typical presentation of press Her altered mentation is not affected by her blood pressure, meaning it is not improved whenever her blood pressure is within normal limits Case discussed with neurology on 05/26, who recommended LP, but stated that this is likely sequela of hypoxic event from drug use. thiamine 500 mg IM 3 times daily started on 05 26,for 3 days, now on po thiamine daily 7/19 Daughter Ina made contact with RN. I also spoke with her, at this point, her mother's condition is sub acute. No need for interventions. Ina is aware her mother needs ocean transportation intermediary care. She is willing to assist with this, but neither she, nor her mother have a safe place to live. I have let social work know that Ina is available, and SW will reach out to her on 06/07. Qualifiers: Altered mental status type: stupor Qualified Code(s): R40.1 - Stupor (4) Pubic bone fracture: Impression: X-ray hip on 05/25 shows moderately displaced right inferior pubic ramus fracture with extension in the medial acetabular column and suspicion for extension to the pelvic ring. Case was discussed with on-call orthopedist, who reports this is nonoperative. She is full weightbearing as tolerated and will need a walker at discharge. If her mentation improves, we will order PT jesús, currently not able to particpate with PT. (5) Malnutrition: Impression: Severe protein calorie malnutrition given obvious muscle wasting, loss of subcutaneous fat, bedridden, BMI 15.7. Nursing assisting with meals. Nutrition following Qualifiers: Malnutrition type: unspecified type Qualified Code(s): E46 - Unspecified protein-calorie malnutrition
[2025-06-22] MEDS: CLINDAMYCIN 150 MG CAPSULE PO SCH (13:24)
--- NOTE | 2025-06-23 11:15 | PROVIDER PROGRESS NOTE ---
Subjective Prog Note Date Prog Note Date: 06/23/25 Subjective Pt reports feeling: No change Current Medications Current Medications Current Medications: Current Medications Generic Name Dose Route Start Last Admin Trade Name Falguni PRN Reason Stop Dose Admin Acetaminophen 650 mg 05/21/25 14:24 06/22/25 13:24 Acetaminophen 325 Mg Tablet PO 650 mg Q4HR PRN Administration Pain 1 to 4, or Fever Apixaban 2.5 mg 05/29/25 21:00 06/23/25 08:41 Apixaban 2.5 Mg Tablet PO 2.5 mg BID WEST Administration Calcium Carbonate/Glycine 500 mg 06/04/25 09:00 06/23/25 08:41 Calcium Carbonate Chew 500 Mg Tablet PO 500 mg DAILY WEST Administration Cholecalciferol 25 mcg 06/04/25 09:00 06/23/25 08:42 Cholecalciferol 25 Mcg Tablet PO 25 mcg DAILY WEST Administration Clindamycin HCl 300 mg 06/22/25 14:00 06/23/25 06:26 Clindamycin 150 Mg Capsule PO 300 mg Q8HR WEST Administration Cyclobenzaprine HCl 10 mg 06/18/25 13:19 06/18/25 14:01 Cyclobenzaprine 10 Mg Tablet PO 10 mg TID PRN Administration Spasms Docusate Sodium 250 - 500 mg 05/24/25 09:00 06/23/25 08:41 Docusate Sodium 250 Mg Capsule PO 250 mg DAILY WEST Administration Naloxone HCl 0.4 mg 06/13/25 21:50 06/13/25 22:04 Naloxone 0.4 Mg/Ml Vial IVP 0.4 mg PRN PRN Administration respiratory depression Naloxone HCl 0.4 mg 06/13/25 22:08 Naloxone 0.4 Mg/Ml Vial IVP Q10M PRN respiratory depression Polyethylene Glycol 17 gm 05/25/25 09:00 06/23/25 08:41 Polyethylene Glycol 3350 17 Gm Packet PO 17 gm DAILY WEST Administration Multivit/Folic Acid/Iron 1 tab 05/25/25 08:00 06/23/25 08:41 Vitamin Tablet PO 1 tab DAILYWM WEST Administration Sodium Chloride 10 ml 05/21/25 14:24 06/18/25 00:14 Sodium Chloride Flush 0.9% 10 Ml Syringe IVP 10 ml PRN PRN Administration NEEDED PER PROVIDER ORDERS Thiamine HCl 100 mg 05/30/25 09:00 06/23/25 08:42 Thiamine 100 Mg Tablet PO 100 mg DAILY WEST Administration Objective Vital Signs/Intake & Output Reviewed Vital Signs: Yes Vital Signs: Vital Signs x48h Temp Pulse Resp BP Pulse Ox 06/23/25 07:56 36.9 C 107 H 18 117/87 98 Intake & Output: Intake & Output 06/20/25 06/21/25 06/22/25 06/23/25 23:59 23:59 23:59 23:59 Intake Total 1077 / 1077 2260 / 2260 1340 / 1340 420 / 420 Balance 1077 / 1077 2260 / 2260 1340 / 1340 420 / 420 Weight (kg) 43 kg 41.5 kg 44 kg 41.5 kg Objective General Appearance: positive No acute distress and Alert Eyes Bilateral: positive Normal inspection ENT: positive ENT inspection nml Neck: positive Nml inspection Respiratory: positive No respiratory distress and Breath sounds nml Cardiovascular: positive Regular rate & rhythm Abdomen: positive No distention Skin: positive Color nml, No rash, Dry and Other (Area of redness about the left elbow) Extremities: positive No pedal edema; negative Nml appearance Neurologic/Psychiatric: positive Other (Opens eyes spontaneously, moving all extremities. Not interactive with interview) Lab Results 06/14/25 04:57 06/14/25 04:57 Other Labs: Lab Results x24hrs 06/14/25 06/13/25 06/13/25 Range/Units 04:57 22:24 20:21 WBC 6.7 8.1 (4.8-10.8) x10^3/uL RBC 3.85 L 3.91 L (4.20-5.40) 10^6/uL Hgb 12.3 12.5 (12.0-16.0) g/dL Hct 36.7 L 37.0 (37.0-47.0) % MCV 95.3 94.6 (81.0-99.0) fL MCH 31.9 H 32.0 H (27.0-31.0) pg MCHC 33.5 33.8 (32.0-36.0) g/dL RDW 14.0 13.8 (12.0-15.0) % Plt Count 283 280 (130-450) 10^3/uL MPV 9.4 9.1 (7.9-10.8) fL Neut # (Auto) 3.9 4.6 (1.5-6.6) 10^3/uL Lymph # (Auto) 1.6 2.1 (1.5-3.5) 10^3/uL [place] # (Auto) 0.9 1.1 H (0.0-1.0) 10^3/uL Eos # (Auto) 0.3 0.2 (0.0-0.7) 10^3/uL Baso # (Auto) 0.0 0.0 (0.0-0.1) 10^3/uL Absolute Nucleated RBC 0.00 0.00 x10^3/uL Nucleated RBC % 0.0 0.0 /100WBC Sodium 137 137 (135-145) mmol/L Potassium 4.2 4.3 (3.5-4.5) mmol/L Chloride 101 101 (101-111) mmol/L Carbon Dioxide 32 31 (21-32) mmol/L Anion Gap 4.0 L 5.0 L (6-13) BUN 20 20 (6-20) mg/dL Creatinine 0.6 0.7 (0.6-1.3) mg/dL Estimated GFR (MDRD) 102 86 L (>89) Glucose 89 101 (74-104) mg/dL POC Whole Bld Glucose 118 (70-100) mg/dL Calcium 9.5 9.4 (8.5-10.3) mg/dL Total Bilirubin 0.4 (0.2-1.0) mg/dL AST 23 (10-42) IU/L ALT 20 (10-60) IU/L Alkaline Phosphatase 51 (42-121) IU/L Total Protein 6.2 L (6.4-8.9) g/dL Albumin 3.5 (3.2-5.5) g/dL Globulin 2.7 (2.1-4.2) g/dL Albumin/Globulin Ratio 1.3 (1.0-2.2) Sepsis Event Note (H) Evaluation Current Stage of Sepsis: Ruled out Assessment/Plan Problem List (1) Cellulitis: Impression: Area of redness about the left elbow No palpable fluctuance Ordered clindamycin 300 mg p.o. every 8 hours She is still medically clear 06/23: Continue clindamycin. Today is day 2 of 5 Qualifiers: Laterality: unspecified laterality Site of cellulitis: extremity Site of cellulitis of extremity: lower extremity Qualified Code(s): L03.119 - Cellulitis of unspecified part of limb (2) Polysubstance abuse: Impression: She has been in the hospital since 05/13/2025 UDS on presentation was positive for opiates, amphetamine, methamphetamine, cocaine She is likely out of the window for any acute withdrawal. She has not had any acute changes in her mental status for at least a week. 06/13: She is having some overall tenseness and hyperactivity, likely a psychomotor side effect of her polysubstance abuse. I am starting Suboxone 8-2 mg SL daily and will monitor for effect versus toxicity 05/20: She did not tolerate her dose of Suboxone very well. She was very lethargic through most of yesterday afternoon and is still only responding to pain. Last night I gave her a dose of Narcan with minimal effect. I gave her a liter of IV fluids and sent her for CT head out of an abundance of caution which showed no acute changes. I have discontinued her Suboxone, and I am keeping her on continuous pulse ox to watch for respiratory depression. I have Narcan ordered as needed. Chest x-ray was performed as she had some desaturation requiring 2 L O2. This showed no acute findings. 06/15: Her mentation is much improved today as the Suboxone is washing out of her system. As we do not stock smaller doses of Suboxone, we will likely not pursue this any further. She is back to her mentation as of a few days ago. Remains medically clear. Today is nonbillable rounding 06/16: No change in condition, no change in plan. (3) Altered mental status: Impression: Altered mentation likely secondary to polysubstance abuse UDS on presentation positive for opiates, amphetamine, methamphetamine, cocaine Patient was held in observation, and repeat CT and MRI were performed. MRI shows diffuse white matter hyperintense signal which may represent edema. Not the typical presentation of press Her altered mentation is not affected by her blood pressure, meaning it is not improved whenever her blood pressure is within normal limits Case discussed with neurology on 05/26, who recommended LP, but stated that this is likely sequela of hypoxic event from drug use. thiamine 500 mg IM 3 times daily started on 05 26,for 3 days, now on po thiamine daily 06/06 Daughter Ina made contact with RN. I also spoke with her, at this point, her mother's condition is sub acute. No need for interventions. Ina is aware her mother needs detention care. She is willing to assist with this, but neither she, nor her mother have a safe place to live. I have let social work know that Ina is available, and SW will reach out to her on 06/07. Qualifiers: Altered mental status type: stupor Qualified Code(s): R40.1 - Stupor (4) Pubic bone fracture: Impression: X-ray hip on 05/25 shows moderately displaced right inferior pubic ramus fracture with extension in the medial acetabular column and suspicion for extension to the pelvic ring. Case was discussed with on-call orthopedist, who reports this is nonoperative. She is full weightbearing as tolerated and will need a walker at discharge. If her mentation improves, we will order PT jesús, currently not able to particpate with PT. (5) Malnutrition: Impression: Severe protein calorie malnutrition given obvious muscle wasting, loss of subcutaneous fat, bedridden, BMI 15.7. Nursing assisting with meals. Nutrition following Qualifiers: Malnutrition type: unspecified type Qualified Code(s): E46 - Unspecified protein-calorie malnutrition
[2025-06-24] MEDS: CLINDAMYCIN 150 MG CAPSULE PO SCH (10:53)
--- NOTE | 2025-06-24 15:42 | PROVIDER PROGRESS NOTE ---
Subjective Prog Note Date Prog Note Date: 06/24/25 Subjective Subjective: More verbally responsive today. one word answers. She was excited to see the dogs today with pet therapy. RN reports that she responded positively to the dog. Current Medications Current Medications Current Medications: Current Medications Generic Name Dose Route Start Last Admin Trade Name Falguni PRN Reason Stop Dose Admin Acetaminophen 650 mg 05/21/25 14:24 06/22/25 13:24 Acetaminophen 325 Mg Tablet PO 650 mg Q4HR PRN Administration Pain 1 to 4, or Fever Apixaban 2.5 mg 05/29/25 21:00 06/24/25 08:36 Apixaban 2.5 Mg Tablet PO 2.5 mg BID WEST Administration Calcium Carbonate/Glycine 500 mg 06/04/25 09:00 06/24/25 08:35 Calcium Carbonate Chew 500 Mg Tablet PO 500 mg DAILY WEST Administration Cholecalciferol 25 mcg 06/04/25 09:00 06/24/25 08:35 Cholecalciferol 25 Mcg Tablet PO 25 mcg DAILY WEST Administration Clindamycin HCl 300 mg 06/24/25 11:00 06/24/25 10:53 Clindamycin 150 Mg Capsule PO 300 mg Q6H WEST Administration Cyclobenzaprine HCl 10 mg 06/18/25 13:19 06/18/25 14:01 Cyclobenzaprine 10 Mg Tablet PO 10 mg TID PRN Administration Spasms Docusate Sodium 250 - 500 mg 05/24/25 09:00 06/24/25 08:35 Docusate Sodium 250 Mg Capsule PO 250 mg DAILY WEST Administration Naloxone HCl 0.4 mg 06/13/25 21:50 06/13/25 22:04 Naloxone 0.4 Mg/Ml Vial IVP 0.4 mg PRN PRN Administration respiratory depression Naloxone HCl 0.4 mg 06/13/25 22:08 Naloxone 0.4 Mg/Ml Vial IVP Q10M PRN respiratory depression Polyethylene Glycol 17 gm 05/25/25 09:00 06/24/25 08:36 Polyethylene Glycol 3350 17 Gm Packet PO 17 gm DAILY WEST Administration Multivit/Folic Acid/Iron 1 tab 05/25/25 08:00 06/24/25 08:35 Vitamin Tablet PO 1 tab DAILYWM WEST Administration Sodium Chloride 10 ml 05/21/25 14:24 06/18/25 00:14 Sodium Chloride Flush 0.9% 10 Ml Syringe IVP 10 ml PRN PRN Administration NEEDED PER PROVIDER ORDERS Thiamine HCl 100 mg 05/30/25 09:00 06/24/25 08:35 Thiamine 100 Mg Tablet PO 100 mg DAILY WEST Administration Objective Vital Signs/Intake & Output Reviewed Vital Signs: Yes Vital Signs: Vital Signs x48h Temp Pulse Resp BP Pulse Ox 06/24/25 08:17 36.5 C 98 18 120/85 98 Intake & Output: Intake & Output 06/21/25 06/22/25 06/23/25 06/24/25 23:59 23:59 23:59 23:59 Intake Total 2260 / 2260 1340 / 1340 1280 / 1280 240 / 240 Balance 2260 / 2260 1340 / 1340 1280 / 1280 240 / 240 Weight (kg) 41.5 kg 44 kg 41.5 kg 42 kg Objective General Appearance: positive No acute distress and Alert Eyes Bilateral: positive Normal inspection ENT: positive ENT inspection nml Neck: positive Nml inspection Respiratory: positive No respiratory distress and Breath sounds nml Cardiovascular: positive Regular rate & rhythm Abdomen: positive No distention Skin: positive Color nml, No rash, Dry and Other (L elbow, w/in marked margins, there is some yellowing of the skin, lateral aspect, like a healing bruise. ) Extremities: positive Nml appearance and No pedal edema Neurologic/Psychiatric: positive Other (Opens eyes spontaneously, moving all extremities. one word answers, tracks me as a I move about the room. ) Lab Results 06/14/25 04:57 06/14/25 04:57 Other Labs: Lab Results x24hrs 06/14/25 06/13/25 06/13/25 Range/Units 04:57 22:24 20:21 WBC 6.7 8.1 (4.8-10.8) x10^3/uL RBC 3.85 L 3.91 L (4.20-5.40) 10^6/uL Hgb 12.3 12.5 (12.0-16.0) g/dL Hct 36.7 L 37.0 (37.0-47.0) % MCV 95.3 94.6 (81.0-99.0) fL MCH 31.9 H 32.0 H (27.0-31.0) pg MCHC 33.5 33.8 (32.0-36.0) g/dL RDW 14.0 13.8 (12.0-15.0) % Plt Count 283 280 (130-450) 10^3/uL MPV 9.4 9.1 (7.9-10.8) fL Neut # (Auto) 3.9 4.6 (1.5-6.6) 10^3/uL Lymph # (Auto) 1.6 2.1 (1.5-3.5) 10^3/uL [place] # (Auto) 0.9 1.1 H (0.0-1.0) 10^3/uL Eos # (Auto) 0.3 0.2 (0.0-0.7) 10^3/uL Baso # (Auto) 0.0 0.0 (0.0-0.1) 10^3/uL Absolute Nucleated RBC 0.00 0.00 x10^3/uL Nucleated RBC % 0.0 0.0 /100WBC Sodium 137 137 (135-145) mmol/L Potassium 4.2 4.3 (3.5-4.5) mmol/L Chloride 101 101 (101-111) mmol/L Carbon Dioxide 32 31 (21-32) mmol/L Anion Gap 4.0 L 5.0 L (6-13) BUN 20 20 (6-20) mg/dL Creatinine 0.6 0.7 (0.6-1.3) mg/dL Estimated GFR (MDRD) 102 86 L (>89) Glucose 89 101 (74-104) mg/dL POC Whole Bld Glucose 118 (70-100) mg/dL Calcium 9.5 9.4 (8.5-10.3) mg/dL Total Bilirubin 0.4 (0.2-1.0) mg/dL AST 23 (10-42) IU/L ALT 20 (10-60) IU/L Alkaline Phosphatase 51 (42-121) IU/L Total Protein 6.2 L (6.4-8.9) g/dL Albumin 3.5 (3.2-5.5) g/dL Globulin 2.7 (2.1-4.2) g/dL Albumin/Globulin Ratio 1.3 (1.0-2.2) Sepsis Event Note (H) Evaluation Current Stage of Sepsis: Ruled out Assessment/Plan Problem List (1) Cellulitis: Impression: Area of redness about the left elbow No palpable fluctuance- does not seems tender on exam Ordered clindamycin 300 mg p.o. every 6 hours She is still medically clear She is day 3- and the area is looking bruised not cellulitic. I think I will follow for one more day, then consider dc. Qualifiers: Laterality: unspecified laterality Site of cellulitis: extremity Site of cellulitis of extremity: lower extremity Qualified Code(s): L03.119 - Cellulitis of unspecified part of limb (2) Polysubstance abuse: Impression: She has been in the hospital since 05/13/2025 UDS on presentation was positive for opiates, amphetamine, methamphetamine, cocaine She is likely out of the window for any acute withdrawal. She has not had any acute changes in her mental status for at least a week. 06/13: She is having some overall tenseness and hyperactivity, likely a psychomotor side effect of her polysubstance abuse. I am starting Suboxone 8-2 mg SL daily and will monitor for effect versus toxicity 05/20 7: She did not tolerate her dose of Suboxone very well. She was very lethargic through most of yesterday afternoon and is still only responding to pain. Last night I gave her a dose of Narcan with minimal effect. I gave her a liter of IV fluids and sent her for CT head out of an abundance of caution which showed no acute changes. I have discontinued her Suboxone, and I am keeping her on continuous pulse ox to watch for respiratory depression. I have Narcan ordered as needed. Chest x-ray was performed as she had some desaturation requiring 2 L O2. This showed no acute findings. 06/15: Her mentation is much improved today as the Suboxone is washing out of her system. As we do not stock smaller doses of Suboxone, we will likely not pursue this any further. She is back to her mentation as of a few days ago. Remains medically clear. Today is nonbillable rounding 06/16: No change in condition, no change in plan. (3) Altered mental status: Impression: Altered mentation likely secondary to polysubstance abuse UDS on presentation positive for opiates, amphetamine, methamphetamine, cocaine Patient was held in observation, and repeat CT and MRI were performed. MRI shows diffuse white matter hyperintense signal which may represent edema. Not the typical presentation of press Her altered mentation is not affected by her blood pressure, meaning it is not improved whenever her blood pressure is within normal limits Case discussed with neurology on 05/26, who recommended LP, but stated that this is likely sequela of hypoxic event from drug use. thiamine 500 mg IM 3 times daily started on 05 26,for 3 days, now on po thiamine daily 06/06 Daughter Ina made contact with RN. I also spoke with her, at this point, her mother's condition is sub acute. No need for interventions. 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 She is willing to assist with this, but neither she, nor her mother have a safe place to live. I have let social work know that Ina is available, and SW will reach out to her on 06/07. Qualifiers: Altered mental status type: stupor Qualified Code(s): R40.1 - Stupor (4) Pubic bone fracture: Impression: X-ray hip on 05/25 shows moderately displaced right inferior pubic ramus fracture with extension in the medial acetabular column and suspicion for extension to the pelvic ring. Case was discussed with on-call orthopedist, who reports this is nonoperative. She is full weightbearing as tolerated and will need a walker at discharge. If her mentation improves, we will order PT jesús, currently not able to particpate with PT. (5) Malnutrition: Impression: Severe protein calorie malnutrition given obvious muscle wasting, loss of subcutaneous fat, bedridden, BMI 14.9. Nursing assisting with meals. Nutrition following. Weight not changing, but I question accuracy. She is eating everything that is offered, and getting both meals and snacks. This patient's diagnosis and treatment plan was discussed this AM with attending physician as a part of multi disciplinary rounding meeting. non billable rounding today Qualifiers: Malnutrition type: unspecified type Qualified Code(s): E46 - Unspecified protein-calorie malnutrition
--- NOTE | 2025-06-25 11:05 | PROVIDER PROGRESS NOTE ---
Subjective Prog Note Date Prog Note Date: 06/25/25 Subjective Subjective: She is awake and alert today, finishing eating her lunch. Ate well. continues to be minimally verbal- responds "hi" to me. Current Medications Current Medications Current Medications: Current Medications Generic Name Dose Route Start Last Admin Trade Name Falguni PRN Reason Stop Dose Admin Acetaminophen 650 mg 05/21/25 14:24 06/22/25 13:24 Acetaminophen 325 Mg Tablet PO 650 mg Q4HR PRN Administration Pain 1 to 4, or Fever Apixaban 2.5 mg 05/29/25 21:00 06/24/25 22:54 Apixaban 2.5 Mg Tablet PO 2.5 mg BID WEST Administration Calcium Carbonate/Glycine 500 mg 06/04/25 09:00 06/24/25 08:35 Calcium Carbonate Chew 500 Mg Tablet PO 500 mg DAILY WEST Administration Cholecalciferol 25 mcg 06/04/25 09:00 06/24/25 08:35 Cholecalciferol 25 Mcg Tablet PO 25 mcg DAILY WEST Administration Clindamycin HCl 300 mg 06/24/25 11:00 06/25/25 06:07 Clindamycin 150 Mg Capsule PO 300 mg Q6H WEST Administration Cyclobenzaprine HCl 10 mg 06/18/25 13:19 06/18/25 14:01 Cyclobenzaprine 10 Mg Tablet PO 10 mg TID PRN Administration Spasms Docusate Sodium 250 - 500 mg 05/24/25 09:00 06/24/25 08:35 Docusate Sodium 250 Mg Capsule PO 250 mg DAILY WEST Administration Naloxone HCl 0.4 mg 06/13/25 21:50 06/13/25 22:04 Naloxone 0.4 Mg/Ml Vial IVP 0.4 mg PRN PRN Administration respiratory depression Naloxone HCl 0.4 mg 06/13/25 22:08 Naloxone 0.4 Mg/Ml Vial IVP Q10M PRN respiratory depression Polyethylene Glycol 17 gm 05/25/25 09:00 06/24/25 08:36 Polyethylene Glycol 3350 17 Gm Packet PO 17 gm DAILY WEST Administration Multivit/Folic Acid/Iron 1 tab 05/25/25 08:00 06/24/25 08:35 Vitamin Tablet PO 1 tab DAILYWM WEST Administration Sodium Chloride 10 ml 05/21/25 14:24 06/18/25 00:14 Sodium Chloride Flush 0.9% 10 Ml Syringe IVP 10 ml PRN PRN Administration NEEDED PER PROVIDER ORDERS Thiamine HCl 100 mg 05/30/25 09:00 06/24/25 08:35 Thiamine 100 Mg Tablet PO 100 mg DAILY WEST Administration Objective Vital Signs/Intake & Output Reviewed Vital Signs: Yes Vital Signs: Vital Signs x48h Temp Pulse Resp BP Pulse Ox 06/25/25 07:48 36.6 C 118 H 16 146/95 H 96 Intake & Output: Intake & Output 06/22/25 06/23/25 06/24/25 06/25/25 23:59 23:59 23:59 23:59 Intake Total 1340 / 1340 1280 / 1280 560 / 560 860 / 860 Balance 1340 / 1340 1280 / 1280 560 / 560 860 / 860 Weight (kg) 44 kg 41.5 kg 42 kg 41.5 kg Objective General Appearance: positive No acute distress and Alert Eyes Bilateral: positive Normal inspection ENT: positive ENT inspection nml Neck: positive Nml inspection Respiratory: positive No respiratory distress and Breath sounds nml Cardiovascular: positive Tachycardia Abdomen: positive No distention Skin: positive Color nml, No rash, Dry and Other (L elbow, w/in marked margins, there is some yellowing of the skin, lateral aspect, improving from yesterday) Extremities: positive Nml appearance and No pedal edema Neurologic/Psychiatric: positive Other (eyes open, moving all extremities. one word answers, alert, looking about the room) Lab Results 06/14/25 04:57 06/14/25 04:57 Other Labs: Lab Results x24hrs 06/14/25 06/13/25 06/13/25 Range/Units 04:57 22:24 20:21 WBC 6.7 8.1 (4.8-10.8) x10^3/uL RBC 3.85 L 3.91 L (4.20-5.40) 10^6/uL Hgb 12.3 12.5 (12.0-16.0) g/dL Hct 36.7 L 37.0 (37.0-47.0) % MCV 95.3 94.6 (81.0-99.0) fL MCH 31.9 H 32.0 H (27.0-31.0) pg MCHC 33.5 33.8 (32.0-36.0) g/dL RDW 14.0 13.8 (12.0-15.0) % Plt Count 283 280 (130-450) 10^3/uL MPV 9.4 9.1 (7.9-10.8) fL Neut # (Auto) 3.9 4.6 (1.5-6.6) 10^3/uL Lymph # (Auto) 1.6 2.1 (1.5-3.5) 10^3/uL [place] # (Auto) 0.9 1.1 H (0.0-1.0) 10^3/uL Eos # (Auto) 0.3 0.2 (0.0-0.7) 10^3/uL Baso # (Auto) 0.0 0.0 (0.0-0.1) 10^3/uL Absolute Nucleated RBC 0.00 0.00 x10^3/uL Nucleated RBC % 0.0 0.0 /100WBC Sodium 137 137 (135-145) mmol/L Potassium 4.2 4.3 (3.5-4.5) mmol/L Chloride 101 101 (101-111) mmol/L Carbon Dioxide 32 31 (21-32) mmol/L Anion Gap 4.0 L 5.0 L (6-13) BUN 20 20 (6-20) mg/dL Creatinine 0.6 0.7 (0.6-1.3) mg/dL Estimated GFR (MDRD) 102 86 L (>89) Glucose 89 101 (74-104) mg/dL POC Whole Bld Glucose 118 (70-100) mg/dL Calcium 9.5 9.4 (8.5-10.3) mg/dL Total Bilirubin 0.4 (0.2-1.0) mg/dL AST 23 (10-42) IU/L ALT 20 (10-60) IU/L Alkaline Phosphatase 51 (42-121) IU/L Total Protein 6.2 L (6.4-8.9) g/dL Albumin 3.5 (3.2-5.5) g/dL Globulin 2.7 (2.1-4.2) g/dL Albumin/Globulin Ratio 1.3 (1.0-2.2) Sepsis Event Note (H) Evaluation Current Stage of Sepsis: Ruled out Assessment/Plan Problem List (1) Cellulitis: Impression: Area of redness about the left elbow No palpable fluctuance- does not seems tender on exam Clindamycin stopped today, started Florastor. I think this was a bruise. She is still medically clear She is day 4 Clindamycin- and the area continues to appear bruised. Qualifiers: Laterality: unspecified laterality Site of cellulitis: extremity Site of cellulitis of extremity: lower extremity Qualified Code(s): L03.119 - Cellulitis of unspecified part of limb (2) Polysubstance abuse: Impression: She has been in the hospital since 05/13/2025 UDS on presentation was positive for opiates, amphetamine, methamphetamine, cocaine She is out of the window for any acute withdrawal. She has not had any acute changes in her mental status for at least a week. 06/13: She is having some overall tenseness and hyperactivity, likely a psychomotor side effect of her polysubstance abuse. I am starting Suboxone 8-2 mg SL daily and will monitor for effect versus toxicity 05/20 7: She did not tolerate her dose of Suboxone very well. She was very lethargic through most of yesterday afternoon and is still only responding to pain. Last night I gave her a dose of Narcan with minimal effect. I gave her a liter of IV fluids and sent her for CT head out of an abundance of caution which showed no acute changes. I have discontinued her Suboxone, and I am keeping her on continuous pulse ox to watch for respiratory depression. I have Narcan ordered as needed. Chest x-ray was performed as she had some desaturation requiring 2 L O2. This showed no acute findings. 06/15: Her mentation is much improved today as the Suboxone is washing out of her system. As we do not stock smaller doses of Suboxone, we will likely not pursue this any further. She is back to her mentation as of a few days ago. Remains medically clear. Today is nonbillable rounding 06/16: No change in condition, no change in plan. (3) Altered mental status: Impression: Altered mentation likely secondary to polysubstance abuse UDS on presentation positive for opiates, amphetamine, methamphetamine, cocaine Patient was held in observation, and repeat CT and MRI were performed. MRI shows diffuse white matter hyperintense signal which may represent edema. Not the typical presentation of press Her altered mentation is not affected by her blood pressure, meaning it is not improved whenever her blood pressure is within normal limits Case discussed with neurology on 05/26, who recommended LP, but stated that this is likely sequela of hypoxic event from drug use. thiamine 500 mg IM 3 times daily started on 05 26,for 3 days, now on po thiamine daily 06/06 Daughter Ina made contact with RN. I also spoke with her, at this point, her mother's condition is sub acute. No need for interventions. Ina is aware her mother needs penitentiary care. She is willing to assist with this, but neither she, nor her mother have a safe place to live. Qualifiers: Altered mental status type: stupor Qualified Code(s): R40.1 - Stupor (4) Pubic bone fracture: Impression: X-ray hip on 05/25 shows moderately displaced right inferior pubic ramus fracture with extension in the medial acetabular column and suspicion for extension to the pelvic ring. Case was discussed with on-call orthopedist, who reports this is nonoperative. She is full weightbearing as tolerated and will need a walker at discharge. If her mentation improves, we will order PT eval, currently not able to particpate with PT. (5) Malnutrition: Impression: Severe protein calorie malnutrition given obvious muscle wasting, loss of subcutaneous fat, bedridden, BMI 14.9. Nursing assisting with meals. Nutrition following. Weight not changing, but I question accuracy. She is eating everything that is offered, and getting both meals and snacks. This patient's diagnosis and treatment plan was discussed this AM with attending physician as a part of multi disciplinary rounding meeting. non billable rounding today Qualifiers: Malnutrition type: unspecified type Qualified Code(s): E46 - Unspecified protein-calorie malnutrition
[2025-06-25] MEDS: SACCHAROMYCES BOULARDII 250 MG CAPSULE PO SCH (17:57)
--- NOTE | 2025-06-26 17:04 | PROVIDER PROGRESS NOTE ---
Subjective Prog Note Date Prog Note Date: 06/26/25 Subjective Subjective: She is sitting up in the chair, looking about the room, aide is arranging her pillows. non verbal, but interacts with staff. Current Medications Current Medications Current Medications: Current Medications Generic Name Dose Route Start Last Admin Trade Name Fretobi PRN Reason Stop Dose Admin Acetaminophen 650 mg 05/21/25 14:24 06/26/25 12:24 Acetaminophen 325 Mg Tablet PO 650 mg Q4HR PRN Administration Pain 1 to 4, or Fever Apixaban 2.5 mg 05/29/25 21:00 06/26/25 08:35 Apixaban 2.5 Mg Tablet PO 2.5 mg BID WEST Administration Calcium Carbonate/Glycine 500 mg 06/04/25 09:00 06/26/25 08:35 Calcium Carbonate Chew 500 Mg Tablet PO 500 mg DAILY WEST Administration Cholecalciferol 25 mcg 06/04/25 09:00 06/26/25 08:35 Cholecalciferol 25 Mcg Tablet PO 25 mcg DAILY WEST Administration Cyclobenzaprine HCl 10 mg 06/18/25 13:19 06/18/25 14:01 Cyclobenzaprine 10 Mg Tablet PO 10 mg TID PRN Administration Spasms Docusate Sodium 250 - 500 mg 05/24/25 09:00 06/26/25 08:35 Docusate Sodium 250 Mg Capsule PO 250 mg DAILY WEST Administration Naloxone HCl 0.4 mg 06/13/25 21:50 06/13/25 22:04 Naloxone 0.4 Mg/Ml Vial IVP 0.4 mg PRN PRN Administration respiratory depression Naloxone HCl 0.4 mg 06/13/25 22:08 Naloxone 0.4 Mg/Ml Vial IVP Q10M PRN respiratory depression Polyethylene Glycol 17 gm 05/25/25 09:00 06/26/25 08:35 Polyethylene Glycol 3350 17 Gm Packet PO 17 gm DAILY WEST Administration Multivit/Folic Acid/Iron 1 tab 05/25/25 08:00 06/26/25 08:35 Vitamin Tablet PO 1 tab DAILYWM WEST Administration Saccharomyces Boulardii 500 mg 06/25/25 17:00 06/26/25 08:35 Saccharomyces Boulardii 250 Mg Capsule PO 500 mg BIDWM WEST Administration Sodium Chloride 10 ml 05/21/25 14:24 06/18/25 00:14 Sodium Chloride Flush 0.9% 10 Ml Syringe IVP 10 ml PRN PRN Administration NEEDED PER PROVIDER ORDERS Thiamine HCl 100 mg 05/30/25 09:00 06/26/25 08:35 Thiamine 100 Mg Tablet PO 100 mg DAILY WEST Administration Objective Vital Signs/Intake & Output Reviewed Vital Signs: Yes Vital Signs: Vital Signs x48h Temp Pulse Resp BP Pulse Ox 06/26/25 16:23 37 C 101 H 24 123/90 93 06/26/25 13:51 36.9 C 116 H 16 113/74 92 Intake & Output: Intake & Output 06/23/25 06/24/25 06/25/25 06/26/25 23:59 23:59 23:59 23:59 Intake Total 1280 / 1280 560 / 560 1867 / 1867 480 / 480 Balance 1280 / 1280 560 / 560 1867 / 1867 480 / 480 Weight (kg) 41.5 kg 42 kg 42 kg 41 kg Objective General Appearance: positive No acute distress and Alert Eyes Bilateral: positive Normal inspection ENT: positive ENT inspection nml Neck: positive Nml inspection Respiratory: positive No respiratory distress and Breath sounds nml Cardiovascular: positive Tachycardia Abdomen: positive No distention Skin: positive Color nml, No rash and Dry Extremities: positive Nml appearance and No pedal edema Neurologic/Psychiatric: positive Other (eyes open, moving all extremities. one word answers, alert, looking about the room) Lab Results 06/14/25 04:57 06/14/25 04:57 Other Labs: Lab Results x24hrs 06/14/25 06/13/25 06/13/25 Range/Units 04:57 22:24 20:21 WBC 6.7 8.1 (4.8-10.8) x10^3/uL RBC 3.85 L 3.91 L (4.20-5.40) 10^6/uL Hgb 12.3 12.5 (12.0-16.0) g/dL Hct 36.7 L 37.0 (37.0-47.0) % MCV 95.3 94.6 (81.0-99.0) fL MCH 31.9 H 32.0 H (27.0-31.0) pg MCHC 33.5 33.8 (32.0-36.0) g/dL RDW 14.0 13.8 (12.0-15.0) % Plt Count 283 280 (130-450) 10^3/uL MPV 9.4 9.1 (7.9-10.8) fL Neut # (Auto) 3.9 4.6 (1.5-6.6) 10^3/uL Lymph # (Auto) 1.6 2.1 (1.5-3.5) 10^3/uL [place] # (Auto) 0.9 1.1 H (0.0-1.0) 10^3/uL Eos # (Auto) 0.3 0.2 (0.0-0.7) 10^3/uL Baso # (Auto) 0.0 0.0 (0.0-0.1) 10^3/uL Absolute Nucleated RBC 0.00 0.00 x10^3/uL Nucleated RBC % 0.0 0.0 /100WBC Sodium 137 137 (135-145) mmol/L Potassium 4.2 4.3 (3.5-4.5) mmol/L Chloride 101 101 (101-111) mmol/L Carbon Dioxide 32 31 (21-32) mmol/L Anion Gap 4.0 L 5.0 L (6-13) BUN 20 20 (6-20) mg/dL Creatinine 0.6 0.7 (0.6-1.3) mg/dL Estimated GFR (MDRD) 102 86 L (>89) Glucose 89 101 (74-104) mg/dL POC Whole Bld Glucose 118 (70-100) mg/dL Calcium 9.5 9.4 (8.5-10.3) mg/dL Total Bilirubin 0.4 (0.2-1.0) mg/dL AST 23 (10-42) IU/L ALT 20 (10-60) IU/L Alkaline Phosphatase 51 (42-121) IU/L Total Protein 6.2 L (6.4-8.9) g/dL Albumin 3.5 (3.2-5.5) g/dL Globulin 2.7 (2.1-4.2) g/dL Albumin/Globulin Ratio 1.3 (1.0-2.2) Sepsis Event Note (H) Evaluation Current Stage of Sepsis: Ruled out Assessment/Plan Problem List (1) Cellulitis: Impression: resolved. Qualifiers: Laterality: unspecified laterality Site of cellulitis: extremity Site of cellulitis of extremity: lower extremity Qualified Code(s): L03.119 - Cellulitis of unspecified part of limb (2) Polysubstance abuse: Impression: She has been in the hospital since 05/13/2025 UDS on presentation was positive for opiates, amphetamine, methamphetamine, cocaine She is out of the window for any acute withdrawal. She has not had any acute changes in her mental status for at least a week. 06/13: She is having some overall tenseness and hyperactivity, likely a psychomotor side effect of her polysubstance abuse. I am starting Suboxone 8-2 mg SL daily and will monitor for effect versus toxicity 05/20: She did not tolerate her dose of Suboxone very well. She was very lethargic through most of yesterday afternoon and is still only responding to pain. Last night I gave her a dose of Narcan with minimal effect. I gave her a liter of IV fluids and sent her for CT head out of an abundance of caution which showed no acute changes. I have discontinued her Suboxone, and I am keeping her on continuous pulse ox to watch for respiratory depression. I have Narcan ordered as needed. Chest x-ray was performed as she had some desaturation requiring 2 L O2. This showed no acute findings. 06/15: Her mentation is much improved today as the Suboxone is washing out of her system. As we do not stock smaller doses of Suboxone, we will likely not pursue this any further. She is back to her mentation as of a few days ago. Remains medically clear. Today is nonbillable rounding 06/16: No change in condition, no change in plan. (3) Altered mental status: Impression: Altered mentation likely secondary to polysubstance abuse UDS on presentation positive for opiates, amphetamine, methamphetamine, cocaine Patient was held in observation, and repeat CT and MRI were performed. MRI shows diffuse white matter hyperintense signal which may represent edema. Not the typical presentation of press Her altered mentation is not affected by her blood pressure, meaning it is not improved whenever her blood pressure is within normal limits Case discussed with neurology on 05/26, who recommended LP, but stated that this is likely sequela of hypoxic event from drug use. thiamine 500 mg IM 3 times daily started on 05 26,for 3 days, now on po thiamine daily 06/06 Daughter Ina made contact with RN. I also spoke with her, at this point, her mother's condition is sub acute. No need for interventions. Ina is aware her mother needs terminal operator care. She is willing to assist with this, but neither she, nor her mother have a safe place to live. Qualifiers: Altered mental status type: stupor Qualified Code(s): R40.1 - Stupor (4) Pubic bone fracture: Impression: X-ray hip on 05/25 shows moderately displaced right inferior pubic ramus fracture with extension in the medial acetabular column and suspicion for extension to the pelvic ring. Case was discussed with on-call orthopedist, who reports this is nonoperative. She is full weightbearing as tolerated and will need a walker at discharge. If her mentation improves, we will order PT jesús, currently not able to particpate with PT. She is getting to the chair daily with staff assistance (5) Malnutrition: Impression: Severe protein calorie malnutrition given obvious muscle wasting, loss of subcutaneous fat, bedridden, BMI 14.9. Nursing assisting with meals. Nutrition following. Weight not changing, but I question accuracy. She is eating everything that is offered, and getting both meals and snacks. This patient's diagnosis and treatment plan was discussed this AM with attending physician as a part of multi disciplinary rounding meeting. non billable rounding today Qualifiers: Malnutrition type: unspecified type Qualified Code(s): E46 - Unspecified protein-calorie malnutrition
--- NOTE | 2025-06-27 16:08 | PROVIDER PROGRESS NOTE ---
Subjective Prog Note Date Prog Note Date: 06/27/25 Subjective Subjective: She seems a bit agitated today. She is moaning at times. Her eyes are open. She has had some rhinorrhea for the last several days. Has not been running any fevers. Has not been coughing. Continues to eat and drink very well. Current Medications Current Medications Current Medications: Current Medications Generic Name Dose Route Start Last Admin Trade Name Freq PRN Reason Stop Dose Admin Acetaminophen 650 mg 05/21/25 14:24 06/27/25 09:46 Acetaminophen 325 Mg Tablet PO 650 mg Q4HR PRN Administration Pain 1 to 4, or Fever Apixaban 2.5 mg 05/29/25 21:00 06/27/25 09:11 Apixaban 2.5 Mg Tablet PO 2.5 mg BID WEST Administration Calcium Carbonate/Glycine 500 mg 06/04/25 09:00 06/27/25 09:10 Calcium Carbonate Chew 500 Mg Tablet PO 500 mg DAILY WEST Administration Cholecalciferol 25 mcg 06/04/25 09:00 06/27/25 09:11 Cholecalciferol 25 Mcg Tablet PO 25 mcg DAILY WEST Administration Cyclobenzaprine HCl 10 mg 06/18/25 13:19 06/27/25 14:11 Cyclobenzaprine 10 Mg Tablet PO 10 mg TID PRN Administration Spasms Docusate Sodium 250 - 500 mg 05/24/25 09:00 06/27/25 09:11 Docusate Sodium 250 Mg Capsule PO 250 mg DAILY WEST Administration Naloxone HCl 0.4 mg 06/13/25 21:50 06/13/25 22:04 Naloxone 0.4 Mg/Ml Vial IVP 0.4 mg PRN PRN Administration respiratory depression Naloxone HCl 0.4 mg 06/13/25 22:08 Naloxone 0.4 Mg/Ml Vial IVP Q10M PRN respiratory depression Polyethylene Glycol 17 gm 05/25/25 09:00 06/27/25 09:11 Polyethylene Glycol 3350 17 Gm Packet PO 17 gm DAILY WEST Administration Multivit/Folic Acid/Iron 1 tab 05/25/25 08:00 06/27/25 09:11 Vitamin Tablet PO 1 tab DAILYWM WEST Administration Saccharomyces Boulardii 500 mg 06/25/25 17:00 06/27/25 09:11 Saccharomyces Boulardii 250 Mg Capsule PO 500 mg BIDWM WEST Administration Sodium Chloride 10 ml 05/21/25 14:24 06/18/25 00:14 Sodium Chloride Flush 0.9% 10 Ml Syringe IVP 10 ml PRN PRN Administration NEEDED PER PROVIDER ORDERS Thiamine HCl 100 mg 05/30/25 09:00 06/27/25 09:10 Thiamine 100 Mg Tablet PO 100 mg DAILY WEST Administration Objective Vital Signs/Intake & Output Reviewed Vital Signs: Yes Vital Signs: Vital Signs x48h Temp Pulse Resp BP BP Pulse Ox 06/27/25 16:01 37.1 C 122 H 24 121/71 96 06/27/25 11:32 37.1 C 06/27/25 11:19 37.1 C 109 H 20 142/96 H 95 06/27/25 08: 36.6 C 88 18 142/103 H 95 Intake & Output: Intake & Output 06/24/25 06/25/25 06/26/25 06/27/25 23:59 23:59 23:59 23:59 Intake Total 560 / 560 1867 / 1867 800 / 800 2079 Balance 560 / 560 1867 / 1867 800 / 800 2079 Weight (kg) 42 kg 42 kg 41 kg 43.5 kg Objective General Appearance: positive No acute distress and Alert Eyes Bilateral: positive Normal inspection ENT: positive ENT inspection nml and Other (occasional rhinorrhea) Neck: positive Nml inspection Respiratory: positive No respiratory distress and Breath sounds nml Cardiovascular: positive Tachycardia Abdomen: positive No distention Skin: positive Color nml, No rash and Dry Extremities: positive Nml appearance and No pedal edema Neurologic/Psychiatric: positive Other (eyes open, moving all extremities. seems mildly agitated, holding a washcloth in the air with both hands) Lab Results 06/27/25 16:37 06/27/25 16:37 Other Labs: Lab Results x24hrs 06/14/25 06/13/25 06/13/25 Range/Units 04:57 22:24 20:21 WBC 6.7 8.1 (4.8-10.8) x10^3/uL RBC 3.85 L 3.91 L (4.20-5.40) 10^6/uL Hgb 12.3 12.5 (12.0-16.0) g/dL Hct 36.7 L 37.0 (37.0-47.0) % MCV 95.3 94.6 (81.0-99.0) fL MCH 31.9 H 32.0 H (27.0-31.0) pg MCHC 33.5 33.8 (32.0-36.0) g/dL RDW 14.0 13.8 (12.0-15.0) % Plt Count 283 280 (130-450) 10^3/uL MPV 9.4 9.1 (7.9-10.8) fL Neut # (Auto) 3.9 4.6 (1.5-6.6) 10^3/uL Lymph # (Auto) 1.6 2.1 (1.5-3.5) 10^3/uL [place] # (Auto) 0.9 1.1 H (0.0-1.0) 10^3/uL Eos # (Auto) 0.3 0.2 (0.0-0.7) 10^3/uL Baso # (Auto) 0.0 0.0 (0.0-0.1) 10^3/uL Absolute Nucleated RBC 0.00 0.00 x10^3/uL Nucleated RBC % 0.0 0.0 /100WBC Sodium 137 137 (135-145) mmol/L Potassium 4.2 4.3 (3.5-4.5) mmol/L Chloride 101 101 (101-111) mmol/L Carbon Dioxide 32 31 (21-32) mmol/L Anion Gap 4.0 L 5.0 L (6-13) BUN 20 20 (6-20) mg/dL Creatinine 0.6 0.7 (0.6-1.3) mg/dL Estimated GFR (MDRD) 102 86 L (>89) Glucose 89 101 (74-104) mg/dL POC Whole Bld Glucose 118 (70-100) mg/dL Calcium 9.5 9.4 (8.5-10.3) mg/dL Total Bilirubin 0.4 (0.2-1.0) mg/dL AST 23 (10-42) IU/L ALT 20 (10-60) IU/L Alkaline Phosphatase 51 (42-121) IU/L Total Protein 6.2 L (6.4-8.9) g/dL Albumin 3.5 (3.2-5.5) g/dL Globulin 2.7 (2.1-4.2) g/dL Albumin/Globulin Ratio 1.3 (1.0-2.2) Sepsis Event Note (H) Evaluation Current Stage of Sepsis: Ruled out Assessment/Plan Problem List (1) Upper respiratory infection: Impression: no infilatrate on CXR, no hypoxia. resp panel negative. WBC normal. She seems uncomfortable today, just mildly so, but not calm and alert as she has been recently. BMP unremarkable. (2) Polysubstance abuse: Impression: She has been in the hospital since 05/13/2025 UDS on presentation was positive for opiates, amphetamine, methamphetamine, cocaine She is out of the window for any acute withdrawal. She has not had any acute changes in her mental status for at least a week. 06/13: She is having some overall tenseness and hyperactivity, likely a psychomotor side effect of her polysubstance abuse. I am starting Suboxone 8-2 mg SL daily and will monitor for effect versus toxicity 05/20 7: She did not tolerate her dose of Suboxone very well. She was very lethargic through most of yesterday afternoon and is still only responding to pain. Last night I gave her a dose of Narcan with minimal effect. I gave her a liter of IV fluids and sent her for CT head out of an abundance of caution which showed no acute changes. I have discontinued her Suboxone, and I am keeping her on continuous pulse ox to watch for respiratory depression. I have Narcan ordered as needed. Chest x-ray was performed as she had some desaturation requiring 2 L O2. This showed no acute findings. 06/15: Her mentation is much improved today as the Suboxone is washing out of her system. As we do not stock smaller doses of Suboxone, we will likely not pursue this any further. She is back to her mentation as of a few days ago. Remains medically clear. Today is nonbillable rounding 06/16: No change in condition, no change in plan. (3) Altered mental status: Impression: Altered mentation likely secondary to polysubstance abuse UDS on presentation positive for opiates, amphetamine, methamphetamine, cocaine Patient was held in observation, and repeat CT and MRI were performed. MRI shows diffuse white matter hyperintense signal which may represent edema. Not the typical presentation of press Her altered mentation is not affected by her blood pressure, meaning it is not improved whenever her blood pressure is within normal limits Case discussed with neurology on 05/26, who recommended LP, but stated that this is likely sequela of hypoxic event from drug use. thiamine 500 mg IM 3 times daily started on 05 26,for 3 days, now on po thiamine daily 06/06 Daughter Ina made contact with RN. I also spoke with her, at this point, her mother's condition is sub acute. No need for interventions. Ina is aware her mother needs retirement care. She is willing to assist with this, but neither she, nor her mother have a safe place to live. Qualifiers: Altered mental status type: stupor Qualified Code(s): R40.1 - Stupor (4) Pubic bone fracture: Impression: X-ray hip on 05/25 shows moderately displaced right inferior pubic ramus fracture with extension in the medial acetabular column and suspicion for extension to the pelvic ring. Case was discussed with on-call orthopedist, who reports this is nonoperative. She is full weightbearing as tolerated and will need a walker at discharge. If her mentation improves, we will order PT eval, currently not able to particpate with PT. She is getting to the chair daily with staff assistance (5) Malnutrition: Impression: Severe protein calorie malnutrition given obvious muscle wasting, loss of subcutaneous fat, bedridden, BMI 14.9. Nursing assisting with meals. Nutrition following. Weight not changing, but I question accuracy. She is eating everything that is offered, and getting both meals and snacks. This patient's diagnosis and treatment plan was discussed this AM with attending physician as a part of multi disciplinary rounding meeting. I have spent 26 minutes in the care of this patient today. This includes time [id number], review and ordering of diagnostic imaging and laboratory studies Qualifiers: Malnutrition type: unspecified type Qualified Code(s): E46 - Unspecified protein-calorie malnutrition
[2025-06-27 16:40] LABS: HCT - HEMATOCRIT 41.2 % (37.0-47.0); HGB - HEMOGLOBIN 13.5 g/dL (12.0-16.0); MEAN PLATELET VOLUME 9.7 fL (7.9-10.8); NRBC ABSOLUTE COUNT (AUTO) 0.00 x10^3/uL; NUCLEATED RED BLOOD CELLS AUTO 0.0 /100WBC; PLT - PLATELET COUNT 437 10^3/uL (130-450); RED CELL DISTRIBUTION WIDTH 14.0 % (12.0-15.0)
[2025-06-27 16:57] LABS: BUN - BLOOD UREA NITROGEN 34.0 mg/dL (6-20); CARBON DIOXIDE - CO2 27.0 mmol/L (21-32); CREATININE 0.7 mg/dL (0.6-1.3); GFR - MDRD 86.0 (>89)
[2025-06-27 18:54] LABS: B. PARAPERTUSSIS- RESP PCR PAN NOT DETECTED; B. PERTUSSIS- RESP PCR PANEL NOT DETECTED; C. PNEUMONIAE- RESP PCR PANEL NOT DETECTED; CORONAVIRUS 229E-RESP PCR NOT DETECTED; CORONAVIRUS HKU1-RESP PCR NOT DETECTED; CORONAVIRUS NL63-RESP PCR NOT DETECTED; CORONAVIRUS OC43-RESP PCR NOT DETECTED; HUMAN METAPNEUMOVIRUS NOT DETECTED; INFLUENZA A- RESP PCR PANEL NOT DETECTED; INFLUENZA B - RESP PCR PANEL NOT DETECTED; M. PNEUMONIAE- RESP PCR PANEL NOT DETECTED; PARAINFLUENZA VIRUS 1 NOT DETECTED; PARAINFLUENZA VIRUS 2 NOT DETECTED; PARAINFLUENZA VIRUS 4 NOT DETECTED; RHINOVIRUS/ENTEROVIRUS NOT DETECTED; RSV- RESP PCR PANEL NOT DETECTED; SARS-CoV-2 -RESP PCR PANEL NOT DETECTED
--- NOTE | 2025-06-28 00:12 | XRAY Report ---
PROCEDURE: XR Chest 1V INDICATIONS: cold symptoms TECHNIQUE: One view of the chest was acquired. COMPARISON: 06/14/2025 FINDINGS: Surgical changes and devices: None. Lungs and pleura: Hyperinflation with severe emphysematous change. Mixed interstitial and alveolar opacity in the right medial lower lung and to a lesser extent left lower lung. No significant pleural effusion. Mediastinum: Mediastinal contours appear normal. Heart size is normal. Bones and chest wall: No suspicious bony lesions. Overlying soft tissues appear unremarkable. IMPRESSION: Findings suggestive of bibasilar airspace opacities, likely pneumonia and/or bronchitis. Findings superimposed on severe emphysema. Reviewed by: Sara Osorio MD on 06/28/2025 12:11 AM PDT Approved by: Sara Osorio MD on 06/28/2025 12:11 AM PDT Station ID: [id number]
--- NOTE | 2025-06-28 11:36 | PROVIDER PROGRESS NOTE ---
Subjective Prog Note Date Prog Note Date: 06/28/25 Subjective Subjective: per RN reports she has been intermittently clammy. Otherwise no issues. no fevers- intermittently tachycardic, which is normal for her. Current Medications Current Medications Current Medications: Current Medications Generic Name Dose Route Start Last Admin Trade Name Falguni PRN Reason Stop Dose Admin Acetaminophen 650 mg 05/21/25 14:24 06/28/25 08:59 Acetaminophen 325 Mg Tablet PO 650 mg Q4HR PRN Administration Pain 1 to 4, or Fever Apixaban 2.5 mg 05/29/25 21:00 06/28/25 08:56 Apixaban 2.5 Mg Tablet PO 2.5 mg BID WEST Administration Calcium Carbonate/Glycine 500 mg 06/04/25 09:00 06/28/25 08:56 Calcium Carbonate Chew 500 Mg Tablet PO 500 mg DAILY WEST Administration Cholecalciferol 25 mcg 06/04/25 09:00 06/28/25 08:56 Cholecalciferol 25 Mcg Tablet PO 25 mcg DAILY WEST Administration Cyclobenzaprine HCl 10 mg 06/18/25 13:19 06/27/25 14:11 Cyclobenzaprine 10 Mg Tablet PO 10 mg TID PRN Administration Spasms Docusate Sodium 250 - 500 mg 05/24/25 09:00 06/28/25 08:56 Docusate Sodium 250 Mg Capsule PO 500 mg DAILY WEST Administration Naloxone HCl 0.4 mg 06/13/25 21:50 06/13/25 22:04 Naloxone 0.4 Mg/Ml Vial IVP 0.4 mg PRN PRN Administration respiratory depression Naloxone HCl 0.4 mg 06/13/25 22:08 Naloxone 0.4 Mg/Ml Vial IVP Q10M PRN respiratory depression Polyethylene Glycol 17 gm 05/25/25 09:00 06/28/25 08:56 Polyethylene Glycol 3350 17 Gm Packet PO 17 gm DAILY WEST Administration Multivit/Folic Acid/Iron 1 tab 05/25/25 08:00 06/28/25 08:56 Vitamin Tablet PO 1 tab DAILYWM WEST Administration Saccharomyces Boulardii 500 mg 06/25/25 17:00 06/28/25 08:55 Saccharomyces Boulardii 250 Mg Capsule PO 500 mg BIDWM WEST Administration Sodium Chloride 10 ml 05/21/25 14:24 07/31/25 00:14 Sodium Chloride Flush 0.9% 10 Ml Syringe IVP 10 ml PRN PRN Administration NEEDED PER PROVIDER ORDERS Thiamine HCl 100 mg 05/30/25 09:00 06/28/25 08:56 Thiamine 100 Mg Tablet PO 100 mg DAILY WEST Administration Zinc Oxide 113 gm 06/28/25 12:00 Cod Liver Oil/Zinc Oxide 113 Gm Tube TOP PRN PRN Skin Care Objective Vital Signs/Intake & Output Reviewed Vital Signs: Yes Vital Signs: Vital Signs x48h Temp Pulse Resp BP BP Pulse Ox 06/27/25 16:01 37.1 C 122 H 24 121/71 96 06/27/25 11:32 37.1 C 06/27/25 11:19 37.1 C 109 H 20 142/96 H 95 06/27/25 08: 36.6 C 88 18 142/103 H 95 Intake & Output: Intake & Output 06/25/25 06/26/25 06/27/25 06/28/25 23:59 23:59 23:59 23:59 Intake Total 1866 / 1866 800 / 800 2560 / 2560 Balance 1867 / 186 800 / 800 2560 / 2560 Weight (kg) 42 kg 41 kg 43.5 kg Objective General Appearance: positive No acute distress and Alert Eyes Bilateral: positive Normal inspection ENT: positive ENT inspection nml and Other (occasional rhinorrhea) Neck: positive Nml inspection Respiratory: positive No respiratory distress and Breath sounds nml Cardiovascular: positive Tachycardia Abdomen: positive No distention Skin: positive Color nml, No rash and Dry Extremities: positive Nml appearance and No pedal edema Neurologic/Psychiatric: positive Other (eyes open, moving all extremities. seems mildly agitated, holding a washcloth in the air with both hands) Lab Results 06/27/25 16:37 06/27/25 16:37 Other Labs: Lab Results x24hrs 06/27/25 06/27/25 Range/Units 18:00 16:37 WBC 9.1 (4.8-10.8) x10^3/uL RBC 4.19 L (4.20-5.40) 10^6/uL Hgb 13.5 (12.0-16.0) g/dL Hct 41.2 (37.0-47.0) % MCV 98.3 (81.0-99.0) fL MCH 32.2 H (27.0-31.0) pg MCHC 32.8 (32.0-36.0) g/dL RDW 14.0 (12.0-15.0) % Plt Count 437 (130-450) 10^3/uL MPV 9.7 (7.9-10.8) fL Neut # (Auto) 5.5 (1.5-6.6) 10^3/uL Lymph # (Auto) 2.2 (1.5-3.5) 10^3/uL [place] # (Auto) 1.2 H (0.0-1.0) 10^3/uL Eos # (Auto) 0.1 (0.0-0.7) 10^3/uL Baso # (Auto) 0.1 (0.0-0.1) 10^3/uL Absolute Nucleated RBC 0.00 x10^3/uL Nucleated RBC % 0.0 /100WBC Sodium 140 (135-145) mmol/L Potassium 3.8 (3.5-4.5) mmol/L Chloride 105 (101-111) mmol/L Carbon Dioxide 27 (21-32) mmol/L Anion Gap 8.0 (6-13) BUN 34 H (6-20) mg/dL Creatinine 0.7 (0.6-1.3) mg/dL Estimated GFR (MDRD) 86 L (>89) Glucose 115 H (74-104) mg/dL Calcium 9.1 (8.5-10.3) mg/dL Nasal Adenovirus (PCR) NOT DETECTED Nasal B. parapertussis DNA (PCR) NOT DETECTED Nasal Coronavir 229E PCR NOT DETECTED Nasal Coronavir HKU1 PCR NOT DETECTED Nasal Coronavir NL63 PCR NOT DETECTED Nasal Coronavir OC43 PCR NOT DETECTED Nasal Enterovir/Rhinovir PCR NOT DETECTED Nasal Influenza B PCR NOT DETECTED Nasal Influenza A PCR NOT DETECTED Nasal Parainfluen 1 PCR NOT DETECTED Nasal Parainfluen 2 PCR NOT DETECTED Nasal Parainfluen 3 PCR NOT DETECTED Nasal Parainfluen 4 PCR NOT DETECTED Nasal RSV (PCR) NOT DETECTED Nasal B.pertussis DNA PCR NOT DETECTED Nasal C.pneumoniae (PCR) NOT DETECTED Rory Human Metapneumo PCR NOT DETECTED Nasal M.pneumoniae (PCR) NOT DETECTED Nasal SARS-CoV-2 (PCR) NOT DETECTED Sepsis Event Note (H) Evaluation Current Stage of Sepsis: Ruled out Assessment/Plan Problem List (1) Upper respiratory infection: Impression: workup 06/27:no infilatrate on CXR, no hypoxia. resp panel negative. WBC normal. BMP unremarkable. Nothing to do (2) Polysubstance abuse: Impression: She has been in the hospital since 05/13/2025 UDS on presentation was positive for opiates, amphetamine, methamphetamine, cocaine She is out of the window for any acute withdrawal. She has not had any acute changes in her mental status for at least a week. 06/13: She is having some overall tenseness and hyperactivity, likely a psychomotor side effect of her polysubstance abuse. I am starting Suboxone 8-2 mg SL daily and will monitor for effect versus toxicity 05/20: She did not tolerate her dose of Suboxone very well. She was very lethargic through most of yesterday afternoon and is still only responding to pain. Last night I gave her a dose of Narcan with minimal effect. I gave her a liter of IV fluids and sent her for CT head out of an abundance of caution which showed no acute changes. I have discontinued her Suboxone, and I am keeping her on continuous pulse ox to watch for respiratory depression. I have Narcan ordered as needed. Chest x-ray was performed as she had some desaturation requiring 2 L O2. This showed no acute findings. 06/15: Her mentation is much improved today as the Suboxone is washing out of her system. As we do not stock smaller doses of Suboxone, we will likely not pursue this any further. She is back to her mentation as of a few days ago. Remains medically clear. Today is nonbillable rounding 06/16: No change in condition, no change in plan. (3) Altered mental status: Impression: Altered mentation likely secondary to polysubstance abuse UDS on presentation positive for opiates, amphetamine, methamphetamine, cocaine Patient was held in observation, and repeat CT and MRI were performed. MRI shows diffuse white matter hyperintense signal which may represent edema. Not the typical presentation of press Her altered mentation is not affected by her blood pressure, meaning it is not improved whenever her blood pressure is within normal limits Case discussed with neurology on 05/26, who recommended LP, but stated that this is likely sequela of hypoxic event from drug use. thiamine 500 mg IM 3 times daily started on 05 26,for 3 days, now on po thiamine daily 06/06 Daughter Ina made contact with RN. I also spoke with her, at this point, her mother's condition is sub acute. No need for interventions. Ina is aware her mother needs assisted care. She is willing to assist with this, but neither she, nor her mother have a safe place to live. Qualifiers: Altered mental status type: stupor Qualified Code(s): R40.1 - Stupor (4) Pubic bone fracture: Impression: X-ray hip on 05/25 shows moderately displaced right inferior pubic ramus fracture with extension in the medial acetabular column and suspicion for extension to the pelvic ring. Case was discussed with on-call orthopedist, who reports this is nonoperative. She is full weightbearing as tolerated and will need a walker at discharge. If her mentation improves, we will order PT eval, currently not able to particpate with PT. She is getting to the chair daily with staff assistance (5) Malnutrition: Impression: Severe protein calorie malnutrition given obvious muscle wasting, loss of subcutaneous fat, bedridden, BMI 14.9. Nursing assisting with meals. Nutrition following. Weight not changing, but I question accuracy. She is eating everything that is offered, and getting both meals and snacks. This patient's diagnosis and treatment plan was discussed this AM with attending physician as a part of multi disciplinary rounding meeting. non billable rounding Qualifiers: Malnutrition type: unspecified type Qualified Code(s): E46 - Unspecified protein-calorie malnutrition
--- NOTE | 2025-06-29 19:49 | PROVIDER PROGRESS NOTE ---
Subjective Prog Note Date Prog Note Date: 06/29/25 Subjective Subjective: non verbal. appears comfortable in the bed. good eye contact today Current Medications Current Medications Current Medications: Current Medications Generic Name Dose Route Start Last Admin Trade Name Falguni PRN Reason Stop Dose Admin Acetaminophen 650 mg 05/21/25 14:24 06/28/25 08:59 Acetaminophen 325 Mg Tablet PO 650 mg Q4HR PRN Administration Pain 1 to 4, or Fever Apixaban 2.5 mg 05/29/25 21:00 06/29/25 08:28 Apixaban 2.5 Mg Tablet PO 2.5 mg BID WEST Administration Calcium Carbonate/Glycine 500 mg 06/04/25 09:00 06/29/25 08:28 Calcium Carbonate Chew 500 Mg Tablet PO 500 mg DAILY WEST Administration Cholecalciferol 25 mcg 06/04/25 09:00 06/29/25 08:28 Cholecalciferol 25 Mcg Tablet PO 25 mcg DAILY WEST Administration Cyclobenzaprine HCl 10 mg 06/18/25 13:19 06/27/25 14:11 Cyclobenzaprine 10 Mg Tablet PO 10 mg TID PRN Administration Spasms Docusate Sodium 250 - 500 mg 05/24/25 09:00 06/29/25 08:28 Docusate Sodium 250 Mg Capsule PO Not Given DAILY WEST Naloxone HCl 0.4 mg 06/13/25 21:50 06/13/25 22:04 Naloxone 0.4 Mg/Ml Vial IVP 0.4 mg PRN PRN Administration respiratory depression Naloxone HCl 0.4 mg 06/13/25 22:08 Naloxone 0.4 Mg/Ml Vial IVP Q10M PRN respiratory depression Polyethylene Glycol 17 gm 05/25/25 09:00 06/29/25 08:28 Polyethylene Glycol 3350 17 Gm Packet PO Not Given DAILY WEST Multivit/Folic Acid/Iron 1 tab 05/25/25 08:00 06/29/25 08:28 Vitamin Tablet PO 1 tab DAILYWM WEST Administration Saccharomyces Boulardii 500 mg 06/25/25 17:00 06/29/25 17:23 Saccharomyces Boulardii 250 Mg Capsule PO 500 mg BIDWM WEST Administration Sodium Chloride 10 ml 05/21/25 14:24 06/18/25 00:14 Sodium Chloride Flush 0.9% 10 Ml Syringe IVP 10 ml PRN PRN Administration NEEDED PER PROVIDER ORDERS Thiamine HCl 100 mg 05/30/25 09:00 06/29/25 08:28 Thiamine 100 Mg Tablet PO 100 mg DAILY WEST Administration Zinc Oxide 113 gm 06/28/25 12:00 Cod Liver Oil/Zinc Oxide 113 Gm Tube TOP PRN PRN Skin Care Objective Vital Signs/Intake & Output Reviewed Vital Signs: Yes Vital Signs: Vital Signs x48h Temp Pulse Resp BP Pulse Ox 06/29/25 15:43 36.6 C 99 24 125/89 96 Intake & Output: Intake & Output 06/26/25 06/27/25 06/28/25 06/29/25 23:59 23:59 23:59 23:59 Intake Total 800 / 800 2560 / 2560 720 / 720 1650 / 1650 Balance 800 / 800 2560 / 2560 720 / 720 1650 / 1650 Weight (kg) 41 kg 43.5 kg 43 kg 43 kg Objective General Appearance: positive No acute distress and Alert Eyes Bilateral: positive Normal inspection ENT: positive ENT inspection nml and Other Neck: positive Nml inspection Respiratory: positive No respiratory distress and Breath sounds nml Cardiovascular: positive Regular rate & rhythm Abdomen: positive No distention Skin: positive Color nml, No rash and Dry Extremities: positive Nml appearance and No pedal edema Neurologic/Psychiatric: positive Other (moves all extremities, eyes open, says "hi") Lab Results 06/27/25 16:37 06/27/25 16:37 Other Labs: Lab Results x24hrs 06/27/25 06/27/25 Range/Units 18:00 16:37 WBC 9.1 (4.8-10.8) x10^3/uL RBC 4.19 L (4.20-5.40) 10^6/uL Hgb 13.5 (12.0-16.0) g/dL Hct 41.2 (37.0-47.0) % MCV 98.3 (81.0-99.0) fL MCH 32.2 H (27.0-31.0) pg MCHC 32.8 (32.0-36.0) g/dL RDW 14.0 (12.0-15.0) % Plt Count 437 (130-450) 10^3/uL MPV 9.7 (7.9-10.8) fL Neut # (Auto) 5.5 (1.5-6.6) 10^3/uL Lymph # (Auto) 2.2 (1.5-3.5) 10^3/uL [place] # (Auto) 1.2 H (0.0-1.0) 10^3/uL Eos # (Auto) 0.1 (0.0-0.7) 10^3/uL Baso # (Auto) 0.1 (0.0-0.1) 10^3/uL Absolute Nucleated RBC 0.00 x10^3/uL Nucleated RBC % 0.0 /100WBC Sodium 140 (135-145) mmol/L Potassium 3.8 (3.5-4.5) mmol/L Chloride 105 (101-111) mmol/L Carbon Dioxide 27 (21-32) mmol/L Anion Gap 8.0 (6-13) BUN 34 H (6-20) mg/dL Creatinine 0.7 (0.6-1.3) mg/dL Estimated GFR (MDRD) 86 L (>89) Glucose 115 H (74-104) mg/dL Calcium 9.1 (8.5-10.3) mg/dL Nasal Adenovirus (PCR) NOT DETECTED Nasal B. parapertussis DNA (PCR) NOT DETECTED Nasal Coronavir 229E PCR NOT DETECTED Nasal Coronavir HKU1 PCR NOT DETECTED Nasal Coronavir NL63 PCR NOT DETECTED Nasal Coronavir OC43 PCR NOT DETECTED Nasal Enterovir/Rhinovir PCR NOT DETECTED Nasal Influenza B PCR NOT DETECTED Nasal Influenza A PCR NOT DETECTED Nasal Parainfluen 1 PCR NOT DETECTED Nasal Parainfluen 2 PCR NOT DETECTED Nasal Parainfluen 3 PCR NOT DETECTED Nasal Parainfluen 4 PCR NOT DETECTED Nasal RSV (PCR) NOT DETECTED Nasal B.pertussis DNA PCR NOT DETECTED Nasal C.pneumoniae (PCR) NOT DETECTED Rory Human Metapneumo PCR NOT DETECTED Nasal M.pneumoniae (PCR) NOT DETECTED Nasal SARS-CoV-2 (PCR) NOT DETECTED Sepsis Event Note (H) Evaluation Current Stage of Sepsis: Ruled out Assessment/Plan Problem List (1) Upper respiratory infection: Impression: workup 06/27:no infilatrate on CXR, no hypoxia. resp panel negative. WBC normal. BMP unremarkable. Nothing to do (2) Polysubstance abuse: Impression: She has been in the hospital since 05/13/2025 UDS on presentation was positive for opiates, amphetamine, methamphetamine, cocaine She is out of the window for any acute withdrawal. She has not had any acute changes in her mental status for at least a week. 06/13: She is having some overall tenseness and hyperactivity, likely a psychomotor side effect of her polysubstance abuse. I am starting Suboxone 8-2 mg SL daily and will monitor for effect versus toxicity 05/20: She did not tolerate her dose of Suboxone very well. She was very lethargic through most of yesterday afternoon and is still only responding to pain. Last night I gave her a dose of Narcan with minimal effect. I gave her a liter of IV fluids and sent her for CT head out of an abundance of caution which showed no acute changes. I have discontinued her Suboxone, and I am keeping her on continuous pulse ox to watch for respiratory depression. I have Narcan ordered as needed. Chest x-ray was performed as she had some desaturation requiring 2 L O2. This showed no acute findings. 06/15: Her mentation is much improved today as the Suboxone is washing out of her system. As we do not stock smaller doses of Suboxone, we will likely not pursue this any further. She is back to her mentation as of a few days ago. Remains medically clear. Today is nonbillable rounding 06/16: No change in condition, no change in plan. (3) Altered mental status: Impression: Altered mentation likely secondary to polysubstance abuse UDS on presentation positive for opiates, amphetamine, methamphetamine, cocaine Patient was held in observation, and repeat CT and MRI were performed. MRI shows diffuse white matter hyperintense signal which may represent edema. Not the typical presentation of press Her altered mentation is not affected by her blood pressure, meaning it is not improved whenever her blood pressure is within normal limits Case discussed with neurology on 05/26, who recommended LP, but stated that this is likely sequela of hypoxic event from drug use. thiamine 500 mg IM 3 times daily started on 05 26,for 3 days, now on po thiamine daily 06/06 Daughter Ina made contact with RN. I also spoke with her, at this point, her mother's condition is sub acute. No need for interventions. 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 She is willing to assist with this, but neither she, nor her mother have a safe place to live. Qualifiers: Altered mental status type: stupor Qualified Code(s): R40.1 - Stupor (4) Pubic bone fracture: Impression: X-ray hip on 05/25 shows moderately displaced right inferior pubic ramus fracture with extension in the medial acetabular column and suspicion for extension to the pelvic ring. Case was discussed with on-call orthopedist, who reports this is nonoperative. She is full weightbearing as tolerated and will need a walker at discharge. If her mentation improves, we will order PT jesús, currently not able to particpate with PT. She is getting to the chair daily with staff assistance (5) Malnutrition: Impression: Severe protein calorie malnutrition given obvious muscle wasting, loss of subcutaneous fat, bedridden, BMI 14.9. Nursing assisting with meals. Nutrition following. Weight not changing, but I question accuracy. She is eating everything that is offered, and getting both meals and snacks. This patient's diagnosis and treatment plan was discussed this AM with attending physician as a part of multi disciplinary rounding meeting. non billable rounding Qualifiers: Malnutrition type: unspecified type Qualified Code(s): E46 - Unspecified protein-calorie malnutrition
--- NOTE | 2025-06-30 17:33 | PROVIDER PROGRESS NOTE ---
Subjective Prog Note Date Prog Note Date: 06/30/25 Subjective Subjective: She has not been eating as well for almost 2 days. no other changes. Current Medications Current Medications Current Medications: Current Medications Generic Name Dose Route Start Last Admin Trade Name Falguni PRN Reason Stop Dose Admin Acetaminophen 650 mg 05/21/25 14:24 06/30/25 08:36 Acetaminophen 325 Mg Tablet PO 650 mg Q4HR PRN Administration Pain 1 to 4, or Fever Apixaban 2.5 mg 05/29/25 21:00 06/30/25 08:14 Apixaban 2.5 Mg Tablet PO 2.5 mg BID WEST Administration Calcium Carbonate/Glycine 500 mg 06/04/25 09:00 06/30/25 08:14 Calcium Carbonate Chew 500 Mg Tablet PO 500 mg DAILY WEST Administration Cholecalciferol 25 mcg 06/04/25 09:00 06/30/25 08:14 Cholecalciferol 25 Mcg Tablet PO 25 mcg DAILY WEST Administration Cyclobenzaprine HCl 10 mg 06/18/25 13:19 06/27/25 14:11 Cyclobenzaprine 10 Mg Tablet PO 10 mg TID PRN Administration Spasms Docusate Sodium 250 - 500 mg 05/24/25 09:00 06/30/25 08:14 Docusate Sodium 250 Mg Capsule PO 250 mg DAILY WEST Administration Naloxone HCl 0.4 mg 06/13/25 22:08 Naloxone 0.4 Mg/Ml Vial IVP Q10M PRN respiratory depression Polyethylene Glycol 17 gm 05/25/25 09:00 06/30/25 08:14 Polyethylene Glycol 3350 17 Gm Packet PO 17 gm DAILY WEST Administration Multivit/Folic Acid/Iron 1 tab 05/25/25 08:00 06/30/25 08:14 Vitamin Tablet PO 1 tab DAILYWM WEST Administration Saccharomyces Boulardii 500 mg 06/25/25 17:00 06/30/25 08:14 Saccharomyces Boulardii 250 Mg Capsule PO 500 mg BIDWM WEST Administration Sodium Chloride 10 ml 05/21/25 14:24 06/18/25 00:14 Sodium Chloride Flush 0.9% 10 Ml Syringe IVP 10 ml PRN PRN Administration NEEDED PER PROVIDER ORDERS Thiamine HCl 100 mg 05/30/25 09:00 06/30/25 08:14 Thiamine 100 Mg Tablet PO 100 mg DAILY WEST Administration Zinc Oxide 113 gm 06/28/25 12:00 Cod Liver Oil/Zinc Oxide 113 Gm Tube TOP PRN PRN Skin Care Objective Vital Signs/Intake & Output Reviewed Vital Signs: Yes Vital Signs: Vital Signs x48h Temp Pulse Resp BP Pulse Ox 06/30/25 15:50 36.5 C 104 H 22 129/78 99 Intake & Output: Intake & Output 06/27/25 06/28/25 06/29/25 06/30/25 23:59 23:59 23:59 23:59 Intake Total 2560 / 2560 720 / 720 1999 840 / 840 Balance 2560 / 2560 720 / 720 1999 840 / 840 Weight (kg) 43.5 kg 43 kg 43 kg Objective General Appearance: positive No acute distress and Alert Eyes Bilateral: positive Normal inspection ENT: positive ENT inspection nml and Other; negative Oral lesions (no signs of thrush) or Dry mucous membranes Neck: positive Nml inspection Respiratory: positive No respiratory distress and Breath sounds nml Cardiovascular: positive Regular rate & rhythm Abdomen: positive No distention Skin: positive Color nml, No rash and Dry Extremities: positive Nml appearance and No pedal edema Neurologic/Psychiatric: positive Other (non verbal today. ) Lab Results 06/27/25 16:37 06/27/25 16:37 Other Labs: Lab Results x24hrs 06/27/25 06/27/25 Range/Units 18:00 16:37 WBC 9.1 (4.8-10.8) x10^3/uL RBC 4.19 L (4.20-5.40) 10^6/uL Hgb 13.5 (12.0-16.0) g/dL Hct 41.2 (37.0-47.0) % MCV 98.3 (81.0-99.0) fL MCH 32.2 H (27.0-31.0) pg MCHC 32.8 (32.0-36.0) g/dL RDW 14.0 (12.0-15.0) % Plt Count 437 (130-450) 10^3/uL MPV 9.7 (7.9-10.8) fL Neut # (Auto) 5.5 (1.5-6.6) 10^3/uL Lymph # (Auto) 2.2 (1.5-3.5) 10^3/uL [place] # (Auto) 1.2 H (0.0-1.0) 10^3/uL Eos # (Auto) 0.1 (0.0-0.7) 10^3/uL Baso # (Auto) 0.1 (0.0-0.1) 10^3/uL Absolute Nucleated RBC 0.00 x10^3/uL Nucleated RBC % 0.0 /100WBC Sodium 140 (135-145) mmol/L Potassium 3.8 (3.5-4.5) mmol/L Chloride 105 (101-111) mmol/L Carbon Dioxide 27 (21-32) mmol/L Anion Gap 8.0 (6-13) BUN 34 H (6-20) mg/dL Creatinine 0.7 (0.6-1.3) mg/dL Estimated GFR (MDRD) 86 L (>89) Glucose 115 H (74-104) mg/dL Calcium 9.1 (8.5-10.3) mg/dL Nasal Adenovirus (PCR) NOT DETECTED Nasal B. parapertussis DNA (PCR) NOT DETECTED Nasal Coronavir 229E PCR NOT DETECTED Nasal Coronavir HKU1 PCR NOT DETECTED Nasal Coronavir NL63 PCR NOT DETECTED Nasal Coronavir OC43 PCR NOT DETECTED Nasal Enterovir/Rhinovir PCR NOT DETECTED Nasal Influenza B PCR NOT DETECTED Nasal Influenza A PCR NOT DETECTED Nasal Parainfluen 1 PCR NOT DETECTED Nasal Parainfluen 2 PCR NOT DETECTED Nasal Parainfluen 3 PCR NOT DETECTED Nasal Parainfluen 4 PCR NOT DETECTED Nasal RSV (PCR) NOT DETECTED Nasal B.pertussis DNA PCR NOT DETECTED Nasal C.pneumoniae (PCR) NOT DETECTED Rory Human Metapneumo PCR NOT DETECTED Nasal M.pneumoniae (PCR) NOT DETECTED Nasal SARS-CoV-2 (PCR) NOT DETECTED Sepsis Event Note (H) Evaluation Current Stage of Sepsis: Ruled out Assessment/Plan Problem List (1) Upper respiratory infection: Impression: workup 06/27:no infilatrate on CXR, no hypoxia. resp panel negative. WBC normal. BMP unremarkable. resolved (2) Polysubstance abuse: Impression: She has been in the hospital since 05/13/2025 UDS on presentation was positive for opiates, amphetamine, methamphetamine, cocaine She is out of the window for any acute withdrawal. She has not had any acute changes in her mental status for at least a week. 06/13: She is having some overall tenseness and hyperactivity, likely a psychomotor side effect of her polysubstance abuse. I am starting Suboxone 8-2 mg SL daily and will monitor for effect versus toxicity 05/20: She did not tolerate her dose of Suboxone very well. She was very lethargic through most of yesterday afternoon and is still only responding to pain. Last night I gave her a dose of Narcan with minimal effect. I gave her a liter of IV fluids and sent her for CT head out of an abundance of caution which showed no acute changes. I have discontinued her Suboxone, and I am keeping her on continuous pulse ox to watch for respiratory depression. I have Narcan ordered as needed. Chest x-ray was performed as she had some desaturation requiring 2 L O2. This showed no acute findings. 06/15: Her mentation is much improved today as the Suboxone is washing out of her system. As we do not stock smaller doses of Suboxone, we will likely not pursue this any further. She is back to her mentation as of a few days ago. Remains medically clear. Today is nonbillable rounding 06/16: No change in condition, no change in plan. (3) Altered mental status: Impression: Altered mentation likely secondary to polysubstance abuse UDS on presentation positive for opiates, amphetamine, methamphetamine, cocaine Patient was held in observation, and repeat CT and MRI were performed. MRI shows diffuse white matter hyperintense signal which may represent edema. Not the typical presentation of press Her altered mentation is not affected by her blood pressure, meaning it is not improved whenever her blood pressure is within normal limits Case discussed with neurology on 05/26, who recommended LP, but stated that this is likely sequela of hypoxic event from drug use. thiamine 500 mg IM 3 times daily started on 05 26,for 3 days, now on po thiamine daily 06/06 Daughter Ina made contact with RN. I also spoke with her, at this point, her mother's condition is sub acute. No need for interventions. 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 She is willing to assist with this, but neither she, nor her mother have a safe place to live. Qualifiers: Altered mental status type: stupor Qualified Code(s): R40.1 - Stupor (4) Pubic bone fracture: Impression: X-ray hip on 05/25 shows moderately displaced right inferior pubic ramus fracture with extension in the medial acetabular column and suspicion for extension to the pelvic ring. Case was discussed with on-call orthopedist, who reports this is nonoperative. She is full weightbearing as tolerated and will need a walker at discharge. If her mentation improves, we will order PT eval, currently not able to particpate with PT. She is getting to the chair daily with staff assistance (5) Malnutrition: Impression: Severe protein calorie malnutrition given obvious muscle wasting, loss of subcutaneous fat, bedridden, BMI 14.9. Nursing assisting with meals. Nutrition following. Weight not changing, but I question accuracy. She is eating everything that is offered, and getting both meals and snacks. This patient's diagnosis and treatment plan was discussed this AM with attending physician as a part of multi disciplinary rounding meeting. non billable rounding Qualifiers: Malnutrition type: unspecified type Qualified Code(s): E46 - Unspecified protein-calorie malnutrition
--- NOTE | 2025-07-01 12:00 | PROVIDER PROGRESS NOTE ---
Subjective Prog Note Date Prog Note Date: 07/01/25 Subjective Pt reports feeling: No change Current Medications Current Medications Current Medications: Current Medications Generic Name Dose Route Start Last Admin Trade Name Falguni PRN Reason Stop Dose Admin Acetaminophen 650 mg 05/21/25 14:24 07/01/25 09:13 Acetaminophen 325 Mg Tablet PO 650 mg Q4HR PRN Administration Pain 1 to 4, or Fever Apixaban 2.5 mg 05/29/25 21:00 07/01/25 09:13 Apixaban 2.5 Mg Tablet PO 2.5 mg BID WEST Administration Calcium Carbonate/Glycine 500 mg 06/04/25 09:00 07/01/25 09:12 Calcium Carbonate Chew 500 Mg Tablet PO 500 mg DAILY WEST Administration Cholecalciferol 25 mcg 06/04/25 09:00 07/01/25 09:12 Cholecalciferol 25 Mcg Tablet PO 25 mcg DAILY WEST Administration Cyclobenzaprine HCl 10 mg 06/18/25 13:19 07/01/25 03:06 Cyclobenzaprine 10 Mg Tablet PO 10 mg TID PRN Administration Spasms Docusate Sodium 250 - 500 mg 05/24/25 09:00 07/01/25 09:13 Docusate Sodium 250 Mg Capsule PO 250 mg DAILY WEST Administration Naloxone HCl 0.4 mg 06/13/25 22:08 Naloxone 0.4 Mg/Ml Vial IVP Q10M PRN respiratory depression Polyethylene Glycol 17 gm 05/25/25 09:00 07/01/25 09:12 Polyethylene Glycol 3350 17 Gm Packet PO 17 gm DAILY WEST Administration Multivit/Folic Acid/Iron 1 tab 05/25/25 08:00 07/01/25 09:13 Vitamin Tablet PO 1 tab DAILYWM WEST Administration Saccharomyces Boulardii 500 mg 06/25/25 17:00 07/01/25 09:12 Saccharomyces Boulardii 250 Mg Capsule PO 500 mg BIDWM WEST Administration Sodium Chloride 10 ml 05/21/25 14:24 06/18/25 00:14 Sodium Chloride Flush 0.9% 10 Ml Syringe IVP 10 ml PRN PRN Administration NEEDED PER PROVIDER ORDERS Thiamine HCl 100 mg 05/30/25 09:00 07/01/25 09:13 Thiamine 100 Mg Tablet PO 100 mg DAILY WEST Administration Zinc Oxide 113 gm 06/28/25 12:00 Cod Liver Oil/Zinc Oxide 113 Gm Tube TOP PRN PRN Skin Care Objective Vital Signs/Intake & Output Reviewed Vital Signs: Yes Vital Signs: Vital Signs x48h Temp Pulse Resp BP Pulse Ox 07/01/25 09:00 36.7 C 79 18 120/79 98 Intake & Output: Intake & Output 06/28/25 06/29/25 06/30/25 07/01/25 23:59 23:59 23:59 23:59 Intake Total 720 / 720 1999 940 / 940 680 / 680 Balance 720 / 720 1999 940 / 940 680 / 680 Weight (kg) 43 kg 43 kg Objective General Appearance: positive No acute distress and Alert Eyes Bilateral: positive Normal inspection ENT: positive ENT inspection nml and Other; negative Oral lesions (no signs of thrush) or Dry mucous membranes Neck: positive Nml inspection Respiratory: positive No respiratory distress and Breath sounds nml Cardiovascular: positive Regular rate & rhythm Abdomen: positive No distention Skin: positive Color nml, No rash and Dry Extremities: positive Nml appearance and No pedal edema Neurologic/Psychiatric: positive Other (non verbal today. ) Lab Results 06/27/25 16:37 06/27/25 16:37 Other Labs: Lab Results x24hrs 06/27/25 06/27/25 Range/Units 18:00 16:37 WBC 9.1 (4.8-10.8) x10^3/uL RBC 4.19 L (4.20-5.40) 10^6/uL Hgb 13.5 (12.0-16.0) g/dL Hct 41.2 (37.0-47.0) % MCV 98.3 (81.0-99.0) fL MCH 32.2 H (27.0-31.0) pg MCHC 32.8 (32.0-36.0) g/dL RDW 14.0 (12.0-15.0) % Plt Count 437 (130-450) 10^3/uL MPV 9.7 (7.9-10.8) fL Neut # (Auto) 5.5 (1.5-6.6) 10^3/uL Lymph # (Auto) 2.2 (1.5-3.5) 10^3/uL [place] # (Auto) 1.2 H (0.0-1.0) 10^3/uL Eos # (Auto) 0.1 (0.0-0.7) 10^3/uL Baso # (Auto) 0.1 (0.0-0.1) 10^3/uL Absolute Nucleated RBC 0.00 x10^3/uL Nucleated RBC % 0.0 /100WBC Sodium 140 (135-145) mmol/L Potassium 3.8 (3.5-4.5) mmol/L Chloride 105 (101-111) mmol/L Carbon Dioxide 27 (21-32) mmol/L Anion Gap 8.0 (6-13) BUN 34 H (6-20) mg/dL Creatinine 0.7 (0.6-1.3) mg/dL Estimated GFR (MDRD) 86 L (>89) Glucose 115 H (74-104) mg/dL Calcium 9.1 (8.5-10.3) mg/dL Nasal Adenovirus (PCR) NOT DETECTED Nasal B. parapertussis DNA (PCR) NOT DETECTED Nasal Coronavir 229E PCR NOT DETECTED Nasal Coronavir HKU1 PCR NOT DETECTED Nasal Coronavir NL63 PCR NOT DETECTED Nasal Coronavir OC43 PCR NOT DETECTED Nasal Enterovir/Rhinovir PCR NOT DETECTED Nasal Influenza B PCR NOT DETECTED Nasal Influenza A PCR NOT DETECTED Nasal Parainfluen 1 PCR NOT DETECTED Nasal Parainfluen 2 PCR NOT DETECTED Nasal Parainfluen 3 PCR NOT DETECTED Nasal Parainfluen 4 PCR NOT DETECTED Nasal RSV (PCR) NOT DETECTED Nasal B.pertussis DNA PCR NOT DETECTED Nasal C.pneumoniae (PCR) NOT DETECTED Rory Human Metapneumo PCR NOT DETECTED Nasal M.pneumoniae (PCR) NOT DETECTED Nasal SARS-CoV-2 (PCR) NOT DETECTED Sepsis Event Note (H) Evaluation Current Stage of Sepsis: Ruled out Assessment/Plan Problem List (1) Upper respiratory infection: Impression: workup 06/27:no infilatrate on CXR, no hypoxia. resp panel negative. WBC normal. BMP unremarkable. resolved (2) Polysubstance abuse: Impression: She has been in the hospital since 05/13/2025 UDS on presentation was positive for opiates, amphetamine, methamphetamine, cocaine She is out of the window for any acute withdrawal. She has not had any acute changes in her mental status for at least a week. 06/13: She is having some overall tenseness and hyperactivity, likely a psychomotor side effect of her polysubstance abuse. I am starting Suboxone 8-2 mg SL daily and will monitor for effect versus toxicity 05/20: She did not tolerate her dose of Suboxone very well. She was very lethargic through most of yesterday afternoon and is still only responding to pain. Last night I gave her a dose of Narcan with minimal effect. I gave her a liter of IV fluids and sent her for CT head out of an abundance of caution which showed no acute changes. I have discontinued her Suboxone, and I am keeping her on continuous pulse ox to watch for respiratory depression. I have Narcan ordered as needed. Chest x-ray was performed as she had some desaturation requiring 2 L O2. This showed no acute findings. 06/15: Her mentation is much improved today as the Suboxone is washing out of her system. As we do not stock smaller doses of Suboxone, we will likely not pursue this any further. She is back to her mentation as of a few days ago. Remains medically clear. Today is nonbillable rounding 06/16: No change in condition, no change in plan. (3) Altered mental status: Impression: Altered mentation likely secondary to polysubstance abuse UDS on presentation positive for opiates, amphetamine, methamphetamine, cocaine Patient was held in observation, and repeat CT and MRI were performed. MRI shows diffuse white matter hyperintense signal which may represent edema. Not the typical presentation of press Her altered mentation is not affected by her blood pressure, meaning it is not improved whenever her blood pressure is within normal limits Case discussed with neurology on 05/26, who recommended LP, but stated that this is likely sequela of hypoxic event from drug use. thiamine 500 mg IM 3 times daily started on 05 26,for 3 days, now on po thiamine daily 06/06 Daughter Ina made contact with RN. I also spoke with her, at this point, her mother's condition is sub acute. No need for interventions. 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 She is willing to assist with this, but neither she, nor her mother have a safe place to live. Qualifiers: Altered mental status type: stupor Qualified Code(s): R40.1 - Stupor (4) Pubic bone fracture: Impression: X-ray hip on 05/25 shows moderately displaced right inferior pubic ramus fracture with extension in the medial acetabular column and suspicion for extension to the pelvic ring. Case was discussed with on-call orthopedist, who reports this is nonoperative. She is full weightbearing as tolerated and will need a walker at discharge. If her mentation improves, we will order PT jesús, currently not able to particpate with PT. She is getting to the chair daily with staff assistance (5) Malnutrition: Impression: Severe protein calorie malnutrition given obvious muscle wasting, loss of subcutaneous fat, bedridden, BMI 14.9. Nursing assisting with meals. Nutrition following. Weight not changing, but I question accuracy. She is eating everything that is offered, and getting both meals and snacks. This patient's diagnosis and treatment plan was discussed this AM with attending physician as a part of multi disciplinary rounding meeting. non billable rounding Qualifiers: Malnutrition type: unspecified type Qualified Code(s): E46 - Unspecified protein-calorie malnutrition
--- NOTE | 2025-07-02 11:20 | PROVIDER PROGRESS NOTE ---
Subjective Prog Note Date Prog Note Date: 07/02/25 Subjective Pt reports feeling: No change Current Medications Current Medications Current Medications: Current Medications Generic Name Dose Route Start Last Admin Trade Name Falguni PRN Reason Stop Dose Admin Acetaminophen 650 mg 05/21/25 14:24 07/01/25 09:13 Acetaminophen 325 Mg Tablet PO 650 mg Q4HR PRN Administration Pain 1 to 4, or Fever Apixaban 2.5 mg 05/29/25 21:00 07/02/25 08:13 Apixaban 2.5 Mg Tablet PO 2.5 mg BID WEST Administration Calcium Carbonate/Glycine 500 mg 06/04/25 09:00 07/02/25 08:13 Calcium Carbonate Chew 500 Mg Tablet PO 500 mg DAILY WEST Administration Cholecalciferol 25 mcg 06/04/25 09:00 07/02/25 08:13 Cholecalciferol 25 Mcg Tablet PO 25 mcg DAILY WEST Administration Cyclobenzaprine HCl 10 mg 06/18/25 13:19 07/02/25 08:12 Cyclobenzaprine 10 Mg Tablet PO 10 mg TID PRN Administration Spasms Docusate Sodium 250 - 500 mg 07/02/25 10:35 Docusate Sodium 250 Mg Capsule PO DAILY PRN Constipation Naloxone HCl 0.4 mg 06/13/25 22:08 Naloxone 0.4 Mg/Ml Vial IVP Q10M PRN respiratory depression Polyethylene Glycol 17 gm 07/02/25 10:34 Polyethylene Glycol 3350 17 Gm Packet PO DAILY PRN Constipation Multivit/Folic Acid/Iron 1 tab 05/25/25 08:00 07/02/25 08:13 Vitamin Tablet PO 1 tab DAILYWM WEST Administration Saccharomyces Boulardii 500 mg 06/25/25 17:00 07/02/25 08:13 Saccharomyces Boulardii 250 Mg Capsule PO 500 mg BIDWM WEST Administration Sodium Chloride 10 ml 05/21/25 14:24 06/18/25 00:14 Sodium Chloride Flush 0.9% 10 Ml Syringe IVP 10 ml PRN PRN Administration NEEDED PER PROVIDER ORDERS Thiamine HCl 100 mg 05/30/25 09:00 07/02/25 08:13 Thiamine 100 Mg Tablet PO 100 mg DAILY WEST Administration Zinc Oxide 113 gm 06/28/25 12:00 Cod Liver Oil/Zinc Oxide 113 Gm Tube TOP PRN PRN Skin Care Objective Vital Signs/Intake & Output Reviewed Vital Signs: Yes Vital Signs: Vital Signs x48h Temp Pulse Resp BP Pulse Ox 07/02/25 07:50 36.6 C 94 18 118/88 93 Intake & Output: Intake & Output 06/29/25 06/30/25 07/01/25 07/02/25 23:59 23:59 23:59 23:59 Intake Total 1999 940 / 940 1040 / 1040 120 / 120 Balance 1999 940 / 940 1040 / 1040 120 / 120 Weight (kg) 43 kg Objective General Appearance: positive No acute distress and Alert Eyes Bilateral: positive Normal inspection ENT: positive ENT inspection nml and Other; negative Oral lesions (no signs of thrush) or Dry mucous membranes Neck: positive Nml inspection Respiratory: positive No respiratory distress and Breath sounds nml Cardiovascular: positive Regular rate & rhythm Abdomen: positive No distention Skin: positive Color nml, No rash and Dry Extremities: positive Nml appearance and No pedal edema Neurologic/Psychiatric: positive Other (non verbal today. ) Lab Results 06/27/25 16:37 06/27/25 16:37 Other Labs: Lab Results x24hrs 06/27/25 06/27/25 Range/Units 18:00 16:37 WBC 9.1 (4.8-10.8) x10^3/uL RBC 4.19 L (4.20-5.40) 10^6/uL Hgb 13.5 (12.0-16.0) g/dL Hct 41.2 (37.0-47.0) % MCV 98.3 (81.0-99.0) fL MCH 32.2 H (27.0-31.0) pg MCHC 32.8 (32.0-36.0) g/dL RDW 14.0 (12.0-15.0) % Plt Count 437 (130-450) 10^3/uL MPV 9.7 (7.9-10.8) fL Neut # (Auto) 5.5 (1.5-6.6) 10^3/uL Lymph # (Auto) 2.2 (1.5-3.5) 10^3/uL [place] # (Auto) 1.2 H (0.0-1.0) 10^3/uL Eos # (Auto) 0.1 (0.0-0.7) 10^3/uL Baso # (Auto) 0.1 (0.0-0.1) 10^3/uL Absolute Nucleated RBC 0.00 x10^3/uL Nucleated RBC % 0.0 /100WBC Sodium 140 (135-145) mmol/L Potassium 3.8 (3.5-4.5) mmol/L Chloride 105 (101-111) mmol/L Carbon Dioxide 27 (21-32) mmol/L Anion Gap 8.0 (6-13) BUN 34 H (6-20) mg/dL Creatinine 0.7 (0.6-1.3) mg/dL Estimated GFR (MDRD) 86 L (>89) Glucose 115 H (74-104) mg/dL Calcium 9.1 (8.5-10.3) mg/dL Nasal Adenovirus (PCR) NOT DETECTED Nasal B. parapertussis DNA (PCR) NOT DETECTED Nasal Coronavir 229E PCR NOT DETECTED Nasal Coronavir HKU1 PCR NOT DETECTED Nasal Coronavir NL63 PCR NOT DETECTED Nasal Coronavir OC43 PCR NOT DETECTED Nasal Enterovir/Rhinovir PCR NOT DETECTED Nasal Influenza B PCR NOT DETECTED Nasal Influenza A PCR NOT DETECTED Nasal Parainfluen 1 PCR NOT DETECTED Nasal Parainfluen 2 PCR NOT DETECTED Nasal Parainfluen 3 PCR NOT DETECTED Nasal Parainfluen 4 PCR NOT DETECTED Nasal RSV (PCR) NOT DETECTED Nasal B.pertussis DNA PCR NOT DETECTED Nasal C.pneumoniae (PCR) NOT DETECTED Rory Human Metapneumo PCR NOT DETECTED Nasal M.pneumoniae (PCR) NOT DETECTED Nasal SARS-CoV-2 (PCR) NOT DETECTED Sepsis Event Note (H) Evaluation Current Stage of Sepsis: Ruled out Assessment/Plan Problem List (1) Upper respiratory infection: Impression: workup 06/27:no infilatrate on CXR, no hypoxia. resp panel negative. WBC normal. BMP unremarkable. resolved (2) Polysubstance abuse: Impression: She has been in the hospital since 05/13/2025 UDS on presentation was positive for opiates, amphetamine, methamphetamine, cocaine She is out of the window for any acute withdrawal. She has not had any acute changes in her mental status for at least a week. 06/13: She is having some overall tenseness and hyperactivity, likely a psychomotor side effect of her polysubstance abuse. I am starting Suboxone 8-2 mg SL daily and will monitor for effect versus toxicity 05/20: She did not tolerate her dose of Suboxone very well. She was very lethargic through most of yesterday afternoon and is still only responding to pain. Last night I gave her a dose of Narcan with minimal effect. I gave her a liter of IV fluids and sent her for CT head out of an abundance of caution which showed no acute changes. I have discontinued her Suboxone, and I am keeping her on continuous pulse ox to watch for respiratory depression. I have Narcan ordered as needed. Chest x-ray was performed as she had some desaturation requiring 2 L O2. This showed no acute findings. 06/15: Her mentation is much improved today as the Suboxone is washing out of her system. As we do not stock smaller doses of Suboxone, we will likely not pursue this any further. She is back to her mentation as of a few days ago. Remains medically clear. Today is nonbillable rounding 06/16: No change in condition, no change in plan. (3) Altered mental status: Impression: Altered mentation likely secondary to polysubstance abuse UDS on presentation positive for opiates, amphetamine, methamphetamine, cocaine Patient was held in observation, and repeat CT and MRI were performed. MRI shows diffuse white matter hyperintense signal which may represent edema. Not the typical presentation of press Her altered mentation is not affected by her blood pressure, meaning it is not improved whenever her blood pressure is within normal limits Case discussed with neurology on 05/26, who recommended LP, but stated that this is likely sequela of hypoxic event from drug use. thiamine 500 mg IM 3 times daily started on 05 26,for 3 days, now on po thiamine daily 06/06 Daughter Ina made contact with RN. I also spoke with her, at this point, her mother's condition is sub acute. No need for interventions. Ina is aware her mother needs longterm care. She is willing to assist with this, but neither she, nor her mother have a safe place to live. Qualifiers: Altered mental status type: stupor Qualified Code(s): R40.1 - Stupor (4) Pubic bone fracture: Impression: X-ray hip on 05/25 shows moderately displaced right inferior pubic ramus fracture with extension in the medial acetabular column and suspicion for extension to the pelvic ring. Case was discussed with on-call orthopedist, who reports this is nonoperative. She is full weightbearing as tolerated and will need a walker at discharge. If her mentation improves, we will order PT jesús, currently not able to particpate with PT. She is getting to the chair daily with staff assistance (5) Malnutrition: Impression: Severe protein calorie malnutrition given obvious muscle wasting, loss of subcutaneous fat, bedridden, BMI 14.9. Nursing assisting with meals. Nutrition following. Weight not changing, but I question accuracy. She is eating everything that is offered, and getting both meals and snacks. This patient's diagnosis and treatment plan was discussed this AM with attending physician as a part of multi disciplinary rounding meeting. non billable rounding Qualifiers: Malnutrition type: unspecified type Qualified Code(s): E46 - Unspecified protein-calorie malnutrition
--- NOTE | 2025-07-03 13:25 | PROVIDER PROGRESS NOTE ---
Subjective Prog Note Date Prog Note Date: 07/03/25 Subjective Pt reports feeling: No change Current Medications Current Medications Current Medications: Current Medications Generic Name Dose Route Start Last Admin Trade Name Falguni PRN Reason Stop Dose Admin Acetaminophen 650 mg 05/21/25 14:24 07/01/25 09:13 Acetaminophen 325 Mg Tablet PO 650 mg Q4HR PRN Administration Pain 1 to 4, or Fever Apixaban 2.5 mg 05/29/25 21:00 07/03/25 08:40 Apixaban 2.5 Mg Tablet PO 2.5 mg BID WEST Administration Calcium Carbonate/Glycine 500 mg 06/04/25 09:00 07/03/25 08:40 Calcium Carbonate Chew 500 Mg Tablet PO 500 mg DAILY WEST Administration Cholecalciferol 25 mcg 06/04/25 09:00 07/03/25 08:40 Cholecalciferol 25 Mcg Tablet PO 25 mcg DAILY WEST Administration Cyclobenzaprine HCl 10 mg 06/18/25 13:19 07/03/25 08:40 Cyclobenzaprine 10 Mg Tablet PO 10 mg TID PRN Administration Spasms Docusate Sodium 250 - 500 mg 07/02/25 10:35 Docusate Sodium 250 Mg Capsule PO DAILY PRN Constipation Naloxone HCl 0.4 mg 06/13/25 22:08 Naloxone 0.4 Mg/Ml Vial IVP Q10M PRN respiratory depression Polyethylene Glycol 17 gm 07/02/25 10:34 Polyethylene Glycol 3350 17 Gm Packet PO DAILY PRN Constipation Multivit/Folic Acid/Iron 1 tab 05/25/25 08:00 07/03/25 08:40 Vitamin Tablet PO 1 tab DAILYWM WEST Administration Saccharomyces Boulardii 500 mg 06/25/25 17:00 07/03/25 08:40 Saccharomyces Boulardii 250 Mg Capsule PO 500 mg BIDWM WEST Administration Sodium Chloride 10 ml 05/21/25 14:24 06/18/25 00:14 Sodium Chloride Flush 0.9% 10 Ml Syringe IVP 10 ml PRN PRN Administration NEEDED PER PROVIDER ORDERS Thiamine HCl 100 mg 05/30/25 09:00 07/03/25 08:40 Thiamine 100 Mg Tablet PO 100 mg DAILY WEST Administration Zinc Oxide 113 gm 06/28/25 12:00 Cod Liver Oil/Zinc Oxide 113 Gm Tube TOP PRN PRN Skin Care Objective Vital Signs/Intake & Output Reviewed Vital Signs: Yes Vital Signs: Vital Signs x48h Temp Pulse Resp BP Pulse Ox 07/03/25 08:37 36.5 C 88 24 130/90 95 Intake & Output: Intake & Output 06/30/25 07/01/25 07/02/25 07/03/25 23:59 23:59 23:59 23:59 Intake Total 940 / 940 1040 / 1040 860 / 860 440 / 440 Balance 940 / 940 1040 / 1040 860 / 860 440 / 440 Weight (kg) 43.5 kg Objective General Appearance: positive No acute distress and Alert Eyes Bilateral: positive Normal inspection ENT: positive ENT inspection nml and Other; negative Oral lesions (no signs of thrush) or Dry mucous membranes Neck: positive Nml inspection Respiratory: positive No respiratory distress and Breath sounds nml Cardiovascular: positive Regular rate & rhythm Abdomen: positive No distention Skin: positive Color nml, No rash and Dry Extremities: positive Nml appearance and No pedal edema Neurologic/Psychiatric: positive Other (Tracks with eyes, smiles with conversation) Lab Results 06/27/25 16:37 06/27/25 16:37 Other Labs: Lab Results x24hrs 06/27/25 06/27/25 Range/Units 18:00 16:37 WBC 9.1 (4.8-10.8) x10^3/uL RBC 4.19 L (4.20-5.40) 10^6/uL Hgb 13.5 (12.0-16.0) g/dL Hct 41.2 (37.0-47.0) % MCV 98.3 (81.0-99.0) fL MCH 32.2 H (27.0-31.0) pg MCHC 32.8 (32.0-36.0) g/dL RDW 14.0 (12.0-15.0) % Plt Count 437 (130-450) 10^3/uL MPV 9.7 (7.9-10.8) fL Neut # (Auto) 5.5 (1.5-6.6) 10^3/uL Lymph # (Auto) 2.2 (1.5-3.5) 10^3/uL [place] # (Auto) 1.2 H (0.0-1.0) 10^3/uL Eos # (Auto) 0.1 (0.0-0.7) 10^3/uL Baso # (Auto) 0.1 (0.0-0.1) 10^3/uL Absolute Nucleated RBC 0.00 x10^3/uL Nucleated RBC % 0.0 /100WBC Sodium 140 (135-145) mmol/L Potassium 3.8 (3.5-4.5) mmol/L Chloride 105 (101-111) mmol/L Carbon Dioxide 27 (21-32) mmol/L Anion Gap 8.0 (6-13) BUN 34 H (6-20) mg/dL Creatinine 0.7 (0.6-1.3) mg/dL Estimated GFR (MDRD) 86 L (>89) Glucose 115 H (74-104) mg/dL Calcium 9.1 (8.5-10.3) mg/dL Nasal Adenovirus (PCR) NOT DETECTED Nasal B. parapertussis DNA (PCR) NOT DETECTED Nasal Coronavir 229E PCR NOT DETECTED Nasal Coronavir HKU1 PCR NOT DETECTED Nasal Coronavir NL63 PCR NOT DETECTED Nasal Coronavir OC43 PCR NOT DETECTED Nasal Enterovir/Rhinovir PCR NOT DETECTED Nasal Influenza B PCR NOT DETECTED Nasal Influenza A PCR NOT DETECTED Nasal Parainfluen 1 PCR NOT DETECTED Nasal Parainfluen 2 PCR NOT DETECTED Nasal Parainfluen 3 PCR NOT DETECTED Nasal Parainfluen 4 PCR NOT DETECTED Nasal RSV (PCR) NOT DETECTED Nasal B.pertussis DNA PCR NOT DETECTED Nasal C.pneumoniae (PCR) NOT DETECTED Rory Human Metapneumo PCR NOT DETECTED Nasal M.pneumoniae (PCR) NOT DETECTED Nasal SARS-CoV-2 (PCR) NOT DETECTED Sepsis Event Note (H) Evaluation Current Stage of Sepsis: Ruled out Assessment/Plan Problem List (1) Upper respiratory infection: Impression: workup 06/27:no infilatrate on CXR, no hypoxia. resp panel negative. WBC normal. BMP unremarkable. resolved (2) Polysubstance abuse: Impression: She has been in the hospital since 05/13/2025 UDS on presentation was positive for opiates, amphetamine, methamphetamine, cocaine She is out of the window for any acute withdrawal. She has not had any acute changes in her mental status for at least a week. 06/13: She is having some overall tenseness and hyperactivity, likely a psychomotor side effect of her polysubstance abuse. I am starting Suboxone 8-2 mg SL daily and will monitor for effect versus toxicity 05/20: She did not tolerate her dose of Suboxone very well. She was very lethargic through most of yesterday afternoon and is still only responding to pain. Last night I gave her a dose of Narcan with minimal effect. I gave her a liter of IV fluids and sent her for CT head out of an abundance of caution which showed no acute changes. I have discontinued her Suboxone, and I am keeping her on continuous pulse ox to watch for respiratory depression. I have Narcan ordered as needed. Chest x-ray was performed as she had some desaturation requiring 2 L O2. This showed no acute findings. 06/15: Her mentation is much improved today as the Suboxone is washing out of her system. As we do not stock smaller doses of Suboxone, we will likely not pursue this any further. She is back to her mentation as of a few days ago. Remains medically clear. Today is nonbillable rounding 06/16: No change in condition, no change in plan. (3) Altered mental status: Impression: Altered mentation likely secondary to polysubstance abuse UDS on presentation positive for opiates, amphetamine, methamphetamine, cocaine Patient was held in observation, and repeat CT and MRI were performed. MRI shows diffuse white matter hyperintense signal which may represent edema. Not the typical presentation of press Her altered mentation is not affected by her blood pressure, meaning it is not improved whenever her blood pressure is within normal limits Case discussed with neurology on 05/26, who recommended LP, but stated that this is likely sequela of hypoxic event from drug use. thiamine 500 mg IM 3 times daily started on 05 26,for 3 days, now on po thiamine daily 06/06 Daughter Ina made contact with RN. I also spoke with her, at this point, her mother's condition is sub acute. No need for interventions. 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 She is willing to assist with this, but neither she, nor her mother have a safe place to live. Qualifiers: Altered mental status type: stupor Qualified Code(s): R40.1 - Stupor (4) Pubic bone fracture: Impression: X-ray hip on 05/25 shows moderately displaced right inferior pubic ramus fracture with extension in the medial acetabular column and suspicion for extension to the pelvic ring. Case was discussed with on-call orthopedist, who reports this is nonoperative. She is full weightbearing as tolerated and will need a walker at discharge. If her mentation improves, we will order PT jesús, currently not able to particpate with PT. She is getting to the chair daily with staff assistance (5) Malnutrition: Impression: Severe protein calorie malnutrition given obvious muscle wasting, loss of subcutaneous fat, bedridden, BMI 14.9. Nursing assisting with meals. Nutrition following. Weight not changing, but I question accuracy. She is eating everything that is offered, and getting both meals and snacks. This patient's diagnosis and treatment plan was discussed this AM with attending physician as a part of multi disciplinary rounding meeting. non billable rounding Qualifiers: Malnutrition type: unspecified type Qualified Code(s): E46 - Unspecified protein-calorie malnutrition
[2025-07-04] MEDS: COD LIVER OIL/ZINC OXIDE 113 GM TUBE TOP PRN (06:02)
--- NOTE | 2025-07-04 12:38 | PROVIDER PROGRESS NOTE ---
Subjective Prog Note Date Prog Note Date: 07/04/25 Subjective Pt reports feeling: No change Current Medications Current Medications Current Medications: Current Medications Generic Name Dose Route Start Last Admin Trade Name Falguni PRN Reason Stop Dose Admin Acetaminophen 650 mg 05/21/25 14:24 07/01/25 09:13 Acetaminophen 325 Mg Tablet PO 650 mg Q4HR PRN Administration Pain 1 to 4, or Fever Apixaban 2.5 mg 05/29/25 21:00 07/04/25 09:08 Apixaban 2.5 Mg Tablet PO 2.5 mg BID WEST Administration Calcium Carbonate/Glycine 500 mg 06/04/25 09:00 07/04/25 09:08 Calcium Carbonate Chew 500 Mg Tablet PO 500 mg DAILY WEST Administration Cholecalciferol 25 mcg 06/04/25 09:00 07/04/25 09:08 Cholecalciferol 25 Mcg Tablet PO 25 mcg DAILY WEST Administration Cyclobenzaprine HCl 10 mg 06/18/25 13:19 07/03/25 08:40 Cyclobenzaprine 10 Mg Tablet PO 10 mg TID PRN Administration Spasms Docusate Sodium 250 - 500 mg 07/02/25 10:35 Docusate Sodium 250 Mg Capsule PO DAILY PRN Constipation Naloxone HCl 0.4 mg 06/13/25 22:08 Naloxone 0.4 Mg/Ml Vial IVP Q10M PRN respiratory depression Polyethylene Glycol 17 gm 07/02/25 10:34 Polyethylene Glycol 3350 17 Gm Packet PO DAILY PRN Constipation Multivit/Folic Acid/Iron 1 tab 05/25/25 08:00 07/04/25 09:08 Vitamin Tablet PO 1 tab DAILYWM WEST Administration Saccharomyces Boulardii 500 mg 06/25/25 17:00 07/04/25 09:08 Saccharomyces Boulardii 250 Mg Capsule PO 500 mg BIDWM WEST Administration Sodium Chloride 10 ml 05/21/25 14:24 06/18/25 00:14 Sodium Chloride Flush 0.9% 10 Ml Syringe IVP 10 ml PRN PRN Administration NEEDED PER PROVIDER ORDERS Thiamine HCl 100 mg 05/30/25 09:00 07/04/25 09:08 Thiamine 100 Mg Tablet PO 100 mg DAILY WEST Administration Zinc Oxide 113 gm 06/28/25 12:00 07/04/25 06:02 Cod Liver Oil/Zinc Oxide 113 Gm Tube TOP 1 applic PRN PRN Administration Skin Care Objective Vital Signs/Intake & Output Reviewed Vital Signs: Yes Vital Signs: Vital Signs x48h Temp Pulse Resp BP Pulse Ox 07/03/25 08:37 36.5 C 88 24 130/90 95 Intake & Output: Intake & Output 07/01/25 07/02/25 07/03/25 07/04/25 23:59 23:59 23:59 23:59 Intake Total 1040 / 1040 860 / 860 760 / 760 270 / 270 Balance 1040 / 1040 860 / 860 760 / 760 270 / 270 Weight (kg) 43.5 kg 43.5 kg 44 kg Objective General Appearance: positive No acute distress and Alert Eyes Bilateral: positive Normal inspection ENT: positive ENT inspection nml and Other; negative Oral lesions (no signs of thrush) or Dry mucous membranes Neck: positive Nml inspection Respiratory: positive No respiratory distress and Breath sounds nml Cardiovascular: positive Regular rate & rhythm Abdomen: positive No distention Skin: positive Color nml, No rash and Dry Extremities: positive Nml appearance and No pedal edema Neurologic/Psychiatric: positive Other (Tracks with eyes, smiles with conversation) Lab Results 06/27/25 16:37 06/27/25 16:37 Other Labs: Lab Results x24hrs 06/27/25 06/27/25 Range/Units 18:00 16:37 WBC 9.1 (4.8-10.8) x10^3/uL RBC 4.19 L (4.20-5.40) 10^6/uL Hgb 13.5 (12.0-16.0) g/dL Hct 41.2 (37.0-47.0) % MCV 98.3 (81.0-99.0) fL MCH 32.2 H (27.0-31.0) pg MCHC 32.8 (32.0-36.0) g/dL RDW 14.0 (12.0-15.0) % Plt Count 437 (130-450) 10^3/uL MPV 9.7 (7.9-10.8) fL Neut # (Auto) 5.5 (1.5-6.6) 10^3/uL Lymph # (Auto) 2.2 (1.5-3.5) 10^3/uL [place] # (Auto) 1.2 H (0.0-1.0) 10^3/uL Eos # (Auto) 0.1 (0.0-0.7) 10^3/uL Baso # (Auto) 0.1 (0.0-0.1) 10^3/uL Absolute Nucleated RBC 0.00 x10^3/uL Nucleated RBC % 0.0 /100WBC Sodium 140 (135-145) mmol/L Potassium 3.8 (3.5-4.5) mmol/L Chloride 105 (101-111) mmol/L Carbon Dioxide 27 (21-32) mmol/L Anion Gap 8.0 (6-13) BUN 34 H (6-20) mg/dL Creatinine 0.7 (0.6-1.3) mg/dL Estimated GFR (MDRD) 86 L (>89) Glucose 115 H (74-104) mg/dL Calcium 9.1 (8.5-10.3) mg/dL Nasal Adenovirus (PCR) NOT DETECTED Nasal B. parapertussis DNA (PCR) NOT DETECTED Nasal Coronavir 229E PCR NOT DETECTED Nasal Coronavir HKU1 PCR NOT DETECTED Nasal Coronavir NL63 PCR NOT DETECTED Nasal Coronavir OC43 PCR NOT DETECTED Nasal Enterovir/Rhinovir PCR NOT DETECTED Nasal Influenza B PCR NOT DETECTED Nasal Influenza A PCR NOT DETECTED Nasal Parainfluen 1 PCR NOT DETECTED Nasal Parainfluen 2 PCR NOT DETECTED Nasal Parainfluen 3 PCR NOT DETECTED Nasal Parainfluen 4 PCR NOT DETECTED Nasal RSV (PCR) NOT DETECTED Nasal B.pertussis DNA PCR NOT DETECTED Nasal C.pneumoniae (PCR) NOT DETECTED Rory Human Metapneumo PCR NOT DETECTED Nasal M.pneumoniae (PCR) NOT DETECTED Nasal SARS-CoV-2 (PCR) NOT DETECTED Sepsis Event Note (H) Evaluation Current Stage of Sepsis: Ruled out Assessment/Plan Problem List (1) Upper respiratory infection: Impression: workup 06/27:no infilatrate on CXR, no hypoxia. resp panel negative. WBC normal. BMP unremarkable. resolved (2) Polysubstance abuse: Impression: She has been in the hospital since 05/13/2025 UDS on presentation was positive for opiates, amphetamine, methamphetamine, cocaine She is out of the window for any acute withdrawal. She has not had any acute changes in her mental status for at least a week. 06/13: She is having some overall tenseness and hyperactivity, likely a psychomotor side effect of her polysubstance abuse. I am starting Suboxone 8-2 mg SL daily and will monitor for effect versus toxicity 05/20: She did not tolerate her dose of Suboxone very well. She was very lethargic through most of yesterday afternoon and is still only responding to pain. Last night I gave her a dose of Narcan with minimal effect. I gave her a liter of IV fluids and sent her for CT head out of an abundance of caution which showed no acute changes. I have discontinued her Suboxone, and I am keeping her on continuous pulse ox to watch for respiratory depression. I have Narcan ordered as needed. Chest x-ray was performed as she had some desaturation requiring 2 L O2. This showed no acute findings. 06/15: Her mentation is much improved today as the Suboxone is washing out of her system. As we do not stock smaller doses of Suboxone, we will likely not pursue this any further. She is back to her mentation as of a few days ago. Remains medically clear. Today is nonbillable rounding 06/16: No change in condition, no change in plan. (3) Altered mental status: Impression: Altered mentation likely secondary to polysubstance abuse UDS on presentation positive for opiates, amphetamine, methamphetamine, cocaine Patient was held in observation, and repeat CT and MRI were performed. MRI shows diffuse white matter hyperintense signal which may represent edema. Not the typical presentation of press Her altered mentation is not affected by her blood pressure, meaning it is not improved whenever her blood pressure is within normal limits Case discussed with neurology on 05/26, who recommended LP, but stated that this is likely sequela of hypoxic event from drug use. thiamine 500 mg IM 3 times daily started on 05 26,for 3 days, now on po thiamine daily 06/06 Daughter Ina made contact with RN. I also spoke with her, at this point, her mother's condition is sub acute. No need for interventions. 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 She is willing to assist with this, but neither she, nor her mother have a safe place to live. Qualifiers: Altered mental status type: stupor Qualified Code(s): R40.1 - Stupor (4) Pubic bone fracture: Impression: X-ray hip on 05/25 shows moderately displaced right inferior pubic ramus fracture with extension in the medial acetabular column and suspicion for extension to the pelvic ring. Case was discussed with on-call orthopedist, who reports this is nonoperative. She is full weightbearing as tolerated and will need a walker at discharge. If her mentation improves, we will order PT eval, currently not able to particpate with PT. She is getting to the chair daily with staff assistance (5) Malnutrition: Impression: Severe protein calorie malnutrition given obvious muscle wasting, loss of subcutaneous fat, bedridden, BMI 14.9. Nursing assisting with meals. Nutrition following. Weight not changing, but I question accuracy. She is eating everything that is offered, and getting both meals and snacks. This patient's diagnosis and treatment plan was discussed this AM with attending physician as a part of multi disciplinary rounding meeting. non billable rounding Qualifiers: Malnutrition type: unspecified type Qualified Code(s): E46 - Unspecified protein-calorie malnutrition
--- NOTE | 2025-07-05 11:23 | PROVIDER PROGRESS NOTE ---
Subjective Prog Note Date Prog Note Date: 07/05/25 Subjective Pt reports feeling: No change Current Medications Current Medications Current Medications: Current Medications Generic Name Dose Route Start Last Admin Trade Name Falguni PRN Reason Stop Dose Admin Acetaminophen 650 mg 05/21/25 14:24 07/01/25 09:13 Acetaminophen 325 Mg Tablet PO 650 mg Q4HR PRN Administration Pain 1 to 4, or Fever Apixaban 2.5 mg 05/29/25 21:00 07/05/25 08:13 Apixaban 2.5 Mg Tablet PO 2.5 mg BID WEST Administration Calcium Carbonate/Glycine 500 mg 06/04/25 09:00 07/05/25 08:12 Calcium Carbonate Chew 500 Mg Tablet PO 500 mg DAILY WEST Administration Cholecalciferol 25 mcg 06/04/25 09:00 07/05/25 08:13 Cholecalciferol 25 Mcg Tablet PO 25 mcg DAILY WEST Administration Cyclobenzaprine HCl 10 mg 06/18/25 13:19 07/03/25 08:40 Cyclobenzaprine 10 Mg Tablet PO 10 mg TID PRN Administration Spasms Docusate Sodium 250 - 500 mg 07/02/25 10:35 Docusate Sodium 250 Mg Capsule PO DAILY PRN Constipation Naloxone HCl 0.4 mg 06/13/25 22:08 Naloxone 0.4 Mg/Ml Vial IVP Q10M PRN respiratory depression Polyethylene Glycol 17 gm 07/02/25 10:34 Polyethylene Glycol 3350 17 Gm Packet PO DAILY PRN Constipation Multivit/Folic Acid/Iron 1 tab 05/25/25 08:00 07/05/25 08:12 Vitamin Tablet PO 1 tab DAILYWM WEST Administration Saccharomyces Boulardii 500 mg 06/25/25 17:00 07/05/25 08:13 Saccharomyces Boulardii 250 Mg Capsule PO 500 mg BIDWM WEST Administration Sodium Chloride 10 ml 05/21/25 14:24 06/18/25 00:14 Sodium Chloride Flush 0.9% 10 Ml Syringe IVP 10 ml PRN PRN Administration NEEDED PER PROVIDER ORDERS Thiamine HCl 100 mg 05/30/25 09:00 07/05/25 08:12 Thiamine 100 Mg Tablet PO 100 mg DAILY WEST Administration Zinc Oxide 113 gm 06/28/25 12:00 07/04/25 06:02 Cod Liver Oil/Zinc Oxide 113 Gm Tube TOP 1 applic PRN PRN Administration Skin Care Objective Vital Signs/Intake & Output Reviewed Vital Signs: Yes Vital Signs: Vital Signs x48h Temp Pulse Resp BP Pulse Ox 07/03/25 08:37 36.5 C 88 24 130/90 95 Intake & Output: Intake & Output 07/02/25 07/03/25 07/04/25 07/05/25 23:59 23:59 23:59 23:59 Intake Total 860 / 860 760 / 760 750 / 750 600 / 600 Balance 860 / 860 760 / 760 750 / 750 600 / 600 Weight (kg) 43.5 kg 43.5 kg 44 kg Objective General Appearance: positive No acute distress and Alert Eyes Bilateral: positive Normal inspection ENT: positive ENT inspection nml and Other; negative Oral lesions (no signs of thrush) or Dry mucous membranes Neck: positive Nml inspection Respiratory: positive No respiratory distress and Breath sounds nml Cardiovascular: positive Regular rate & rhythm Abdomen: positive No distention Skin: positive Color nml, No rash and Dry Extremities: positive Nml appearance and No pedal edema Neurologic/Psychiatric: positive Other (Tracks with eyes, smiles with conversation) Lab Results 06/27/25 16:37 06/27/25 16:37 Other Labs: Lab Results x24hrs 06/27/25 06/27/25 Range/Units 18:00 16:37 WBC 9.1 (4.8-10.8) x10^3/uL RBC 4.19 L (4.20-5.40) 10^6/uL Hgb 13.5 (12.0-16.0) g/dL Hct 41.2 (37.0-47.0) % MCV 98.3 (81.0-99.0) fL MCH 32.2 H (27.0-31.0) pg MCHC 32.8 (32.0-36.0) g/dL RDW 14.0 (12.0-15.0) % Plt Count 437 (130-450) 10^3/uL MPV 9.7 (7.9-10.8) fL Neut # (Auto) 5.5 (1.5-6.6) 10^3/uL Lymph # (Auto) 2.2 (1.5-3.5) 10^3/uL [facility] # (Auto) 1.2 H (0.0-1.0) 10^3/uL Eos # (Auto) 0.1 (0.0-0.7) 10^3/uL Baso # (Auto) 0.1 (0.0-0.1) 10^3/uL Absolute Nucleated RBC 0.00 x10^3/uL Nucleated RBC % 0.0 /100WBC Sodium 140 (135-145) mmol/L Potassium 3.8 (3.5-4.5) mmol/L Chloride 105 (101-111) mmol/L Carbon Dioxide 27 (21-32) mmol/L Anion Gap 8.0 (6-13) BUN 34 H (6-20) mg/dL Creatinine 0.7 (0.6-1.3) mg/dL Estimated GFR (MDRD) 86 L (>89) Glucose 115 H (74-104) mg/dL Calcium 9.1 (8.5-10.3) mg/dL Nasal Adenovirus (PCR) NOT DETECTED Nasal B. parapertussis DNA (PCR) NOT DETECTED Nasal Coronavir 229E PCR NOT DETECTED Nasal Coronavir HKU1 PCR NOT DETECTED Nasal Coronavir NL63 PCR NOT DETECTED Nasal Coronavir OC43 PCR NOT DETECTED Nasal Enterovir/Rhinovir PCR NOT DETECTED Nasal Influenza B PCR NOT DETECTED Nasal Influenza A PCR NOT DETECTED Nasal Parainfluen 1 PCR NOT DETECTED Nasal Parainfluen 2 PCR NOT DETECTED Nasal Parainfluen 3 PCR NOT DETECTED Nasal Parainfluen 4 PCR NOT DETECTED Nasal RSV (PCR) NOT DETECTED Nasal B.pertussis DNA PCR NOT DETECTED Nasal C.pneumoniae (PCR) NOT DETECTED Rory Human Metapneumo PCR NOT DETECTED Nasal M.pneumoniae (PCR) NOT DETECTED Nasal SARS-CoV-2 (PCR) NOT DETECTED Sepsis Event Note (H) Evaluation Current Stage of Sepsis: Ruled out Assessment/Plan Problem List (1) Upper respiratory infection: Impression: workup 06/27:no infilatrate on CXR, no hypoxia. resp panel negative. WBC normal. BMP unremarkable. resolved (2) Polysubstance abuse: Impression: She has been in the hospital since 05/13/2025 UDS on presentation was positive for opiates, amphetamine, methamphetamine, cocaine She is out of the window for any acute withdrawal. She has not had any acute changes in her mental status for at least a week. 06/13: She is having some overall tenseness and hyperactivity, likely a psychomotor side effect of her polysubstance abuse. I am starting Suboxone 8-2 mg SL daily and will monitor for effect versus toxicity 05/20: She did not tolerate her dose of Suboxone very well. She was very lethargic through most of yesterday afternoon and is still only responding to pain. Last night I gave her a dose of Narcan with minimal effect. I gave her a liter of IV fluids and sent her for CT head out of an abundance of caution which showed no acute changes. I have discontinued her Suboxone, and I am keeping her on continuous pulse ox to watch for respiratory depression. I have Narcan ordered as needed. Chest x-ray was performed as she had some desaturation requiring 2 L O2. This showed no acute findings. 06/15: Her mentation is much improved today as the Suboxone is washing out of her system. As we do not stock smaller doses of Suboxone, we will likely not pursue this any further. She is back to her mentation as of a few days ago. Remains medically clear. Today is nonbillable rounding 06/16: No change in condition, no change in plan. (3) Altered mental status: Impression: Altered mentation likely secondary to polysubstance abuse UDS on presentation positive for opiates, amphetamine, methamphetamine, cocaine Patient was held in observation, and repeat CT and MRI were performed. MRI shows diffuse white matter hyperintense signal which may represent edema. Not the typical presentation of press Her altered mentation is not affected by her blood pressure, meaning it is not improved whenever her blood pressure is within normal limits Case discussed with neurology on 05/26, who recommended LP, but stated that this is likely sequela of hypoxic event from drug use. thiamine 500 mg IM 3 times daily started on 05 26,for 3 days, now on po thiamine daily 06/06 Daughter Ina made contact with RN. I also spoke with her, at this point, her mother's condition is sub acute. No need for interventions. 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 She is willing to assist with this, but neither she, nor her mother have a safe place to live. Qualifiers: Altered mental status type: stupor Qualified Code(s): R40.1 - Stupor (4) Pubic bone fracture: Impression: X-ray hip on 05/25 shows moderately displaced right inferior pubic ramus fracture with extension in the medial acetabular column and suspicion for extension to the pelvic ring. Case was discussed with on-call orthopedist, who reports this is nonoperative. She is full weightbearing as tolerated and will need a walker at discharge. If her mentation improves, we will order PT jesús, currently not able to particpate with PT. She is getting to the chair daily with staff assistance (5) Malnutrition: Impression: Severe protein calorie malnutrition given obvious muscle wasting, loss of subcutaneous fat, bedridden, BMI 14.9. Nursing assisting with meals. Nutrition following. Weight not changing, but I question accuracy. She is eating everything that is offered, and getting both meals and snacks. This patient's diagnosis and treatment plan was discussed this AM with attending physician as a part of multi disciplinary rounding meeting. non billable rounding Qualifiers: Malnutrition type: unspecified type Qualified Code(s): E46 - Unspecified protein-calorie malnutrition
--- NOTE | 2025-07-06 11:42 | PROVIDER PROGRESS NOTE ---
Subjective Prog Note Date Prog Note Date: 07/06/25 Subjective Pt reports feeling: No change Current Medications Current Medications Current Medications: Current Medications Generic Name Dose Route Start Last Admin Trade Name Falguni PRN Reason Stop Dose Admin Acetaminophen 650 mg 05/21/25 14:24 07/01/25 09:13 Acetaminophen 325 Mg Tablet PO 650 mg Q4HR PRN Administration Pain 1 to 4, or Fever Apixaban 2.5 mg 05/29/25 21:00 07/06/25 08:05 Apixaban 2.5 Mg Tablet PO 2.5 mg BID WEST Administration Calcium Carbonate/Glycine 500 mg 06/04/25 09:00 07/06/25 08:05 Calcium Carbonate Chew 500 Mg Tablet PO 500 mg DAILY WEST Administration Cetirizine HCl 10 mg 07/06/25 11:37 Cetirizine 10 Mg Tablet PO DAILY PRN Allergy Symptoms Cholecalciferol 25 mcg 06/04/25 09:00 07/06/25 08:05 Cholecalciferol 25 Mcg Tablet PO 25 mcg DAILY WEST Administration Cyclobenzaprine HCl 10 mg 06/18/25 13:19 07/03/25 08:40 Cyclobenzaprine 10 Mg Tablet PO 10 mg TID PRN Administration Spasms Docusate Sodium 250 - 500 mg 07/02/25 10:35 Docusate Sodium 250 Mg Capsule PO DAILY PRN Constipation Naloxone HCl 0.4 mg 06/13/25 22:08 Naloxone 0.4 Mg/Ml Vial IVP Q10M PRN respiratory depression Polyethylene Glycol 17 gm 07/02/25 10:34 Polyethylene Glycol 3350 17 Gm Packet PO DAILY PRN Constipation Multivit/Folic Acid/Iron 1 tab 05/25/25 08:00 07/06/25 08:05 Vitamin Tablet PO 1 tab DAILYWM WEST Administration Saccharomyces Boulardii 500 mg 06/25/25 17:00 07/06/25 08:05 Saccharomyces Boulardii 250 Mg Capsule PO 500 mg BIDWM WEST Administration Sodium Chloride 10 ml 05/21/25 14:24 06/18/25 00:14 Sodium Chloride Flush 0.9% 10 Ml Syringe IVP 10 ml PRN PRN Administration NEEDED PER PROVIDER ORDERS Thiamine HCl 100 mg 05/30/25 09:00 07/06/25 08:05 Thiamine 100 Mg Tablet PO 100 mg DAILY WEST Administration Zinc Oxide 113 gm 06/28/25 12:00 08/18/25 00:49 Cod Liver Oil/Zinc Oxide 113 Gm Tube TOP 1 applic PRN PRN Administration Skin Care Objective Vital Signs/Intake & Output Reviewed Vital Signs: Yes Vital Signs: Vital Signs x48h Temp Pulse Resp BP Pulse Ox 07/06/25 08:10 36.5 C 106 H 20 130/94 H 95 Intake & Output: Intake & Output 07/03/25 07/04/25 07/05/25 07/06/25 23:59 23:59 23:59 23:59 Intake Total 760 / 760 750 / 750 1230 / 1230 Balance 760 / 760 750 / 750 1230 / 1230 Weight (kg) 43.5 kg 44 kg Objective General Appearance: positive No acute distress and Alert Eyes Bilateral: positive Normal inspection ENT: positive ENT inspection nml and Other; negative Oral lesions (no signs of thrush) or Dry mucous membranes Neck: positive Nml inspection Respiratory: positive No respiratory distress and Breath sounds nml Cardiovascular: positive Regular rate & rhythm Abdomen: positive No distention Skin: positive Color nml, No rash and Dry Extremities: positive Nml appearance and No pedal edema Neurologic/Psychiatric: positive Other (Tracks with eyes, smiles with conversation) Lab Results 06/27/25 16:37 06/27/25 16:37 Other Labs: Lab Results x24hrs 07/06/25 Range/Units 00:59 POC Whole Bld Glucose 109 (70-100) mg/dL Sepsis Event Note (H) Evaluation Current Stage of Sepsis: Ruled out Assessment/Plan Problem List (1) Upper respiratory infection: Impression: workup 06/27:no infilatrate on CXR, no hypoxia. resp panel negative. WBC normal. BMP unremarkable. resolved (2) Polysubstance abuse: Impression: She has been in the hospital since 05/13/2025 UDS on presentation was positive for opiates, amphetamine, methamphetamine, cocaine She is out of the window for any acute withdrawal. She has not had any acute changes in her mental status for at least a week. 06/13: She is having some overall tenseness and hyperactivity, likely a psychomotor side effect of her polysubstance abuse. I am starting Suboxone 8-2 mg SL daily and will monitor for effect versus toxicity 05/20 7: She did not tolerate her dose of Suboxone very well. She was very lethargic through most of yesterday afternoon and is still only responding to pain. Last night I gave her a dose of Narcan with minimal effect. I gave her a liter of IV fluids and sent her for CT head out of an abundance of caution which showed no acute changes. I have discontinued her Suboxone, and I am keeping her on continuous pulse ox to watch for respiratory depression. I have Narcan ordered as needed. Chest x-ray was performed as she had some desaturation requiring 2 L O2. This showed no acute findings. 06/15: Her mentation is much improved today as the Suboxone is washing out of her system. As we do not stock smaller doses of Suboxone, we will likely not pursue this any further. She is back to her mentation as of a few days ago. Remains medically clear. Today is nonbillable rounding 06/16: No change in condition, no change in plan. (3) Altered mental status: Impression: Altered mentation likely secondary to polysubstance abuse UDS on presentation positive for opiates, amphetamine, methamphetamine, cocaine Patient was held in observation, and repeat CT and MRI were performed. MRI shows diffuse white matter hyperintense signal which may represent edema. Not the typical presentation of press Her altered mentation is not affected by her blood pressure, meaning it is not improved whenever her blood pressure is within normal limits Case discussed with neurology on 05/26, who recommended LP, but stated that this is likely sequela of hypoxic event from drug use. thiamine 500 mg IM 3 times daily started on 05 26,for 3 days, now on po thiamine daily 06/06 Daughter Ina made contact with RN. I also spoke with her, at this point, her mother's condition is sub acute. No need for interventions. Ina is aware her mother needs [facility] care. She is willing to assist with this, but neither she, nor her mother have a safe place to live. Qualifiers: Altered mental status type: stupor Qualified Code(s): R40.1 - Stupor (4) Pubic bone fracture: Impression: X-ray hip on 05/25 shows moderately displaced right inferior pubic ramus fracture with extension in the medial acetabular column and suspicion for extension to the pelvic ring. Case was discussed with on-call orthopedist, who reports this is nonoperative. She is full weightbearing as tolerated and will need a walker at discharge. If her mentation improves, we will order PT jesús, currently not able to particpate with PT. She is getting to the chair daily with staff assistance (5) Malnutrition: Impression: Severe protein calorie malnutrition given obvious muscle wasting, loss of subcutaneous fat, bedridden, BMI 14.9. Nursing assisting with meals. Nutrition following. Weight not changing, but I question accuracy. She is eating everything that is offered, and getting both meals and snacks. This patient's diagnosis and treatment plan was discussed this AM with attending physician as a part of multi disciplinary rounding meeting. non billable rounding Qualifiers: Malnutrition type: unspecified type Qualified Code(s): E46 - Unspecified protein-calorie malnutrition
[2025-07-06 14:13] LABS: B. PARAPERTUSSIS- RESP PCR PAN NOT DETECTED; B. PERTUSSIS- RESP PCR PANEL NOT DETECTED; C. PNEUMONIAE- RESP PCR PANEL NOT DETECTED; CORONAVIRUS 229E-RESP PCR NOT DETECTED; CORONAVIRUS HKU1-RESP PCR NOT DETECTED; CORONAVIRUS NL63-RESP PCR NOT DETECTED; CORONAVIRUS OC43-RESP PCR NOT DETECTED; HUMAN METAPNEUMOVIRUS NOT DETECTED; INFLUENZA A- RESP PCR PANEL NOT DETECTED; INFLUENZA B - RESP PCR PANEL NOT DETECTED; M. PNEUMONIAE- RESP PCR PANEL NOT DETECTED; PARAINFLUENZA VIRUS 1 NOT DETECTED; PARAINFLUENZA VIRUS 2 NOT DETECTED; PARAINFLUENZA VIRUS 4 NOT DETECTED; RHINOVIRUS/ENTEROVIRUS NOT DETECTED; RSV- RESP PCR PANEL NOT DETECTED; SARS-CoV-2 -RESP PCR PANEL NOT DETECTED
--- NOTE | 2025-07-07 14:11 | PROVIDER PROGRESS NOTE ---
Subjective Prog Note Date Prog Note Date: 07/07/25 Subjective Pt reports feeling: No change Current Medications Current Medications Current Medications: Current Medications Generic Name Dose Route Start Last Admin Trade Name Falguni PRN Reason Stop Dose Admin Acetaminophen 650 mg 05/21/25 14:24 07/01/25 09:13 Acetaminophen 325 Mg Tablet PO 650 mg Q4HR PRN Administration Pain 1 to 4, or Fever Apixaban 2.5 mg 05/29/25 21:00 07/07/25 08:18 Apixaban 2.5 Mg Tablet PO 2.5 mg BID WEST Administration Calcium Carbonate/Glycine 500 mg 06/04/25 09:00 07/07/25 08:18 Calcium Carbonate Chew 500 Mg Tablet PO 500 mg DAILY WEST Administration Cetirizine HCl 10 mg 07/06/25 11:37 Cetirizine 10 Mg Tablet PO DAILY PRN Allergy Symptoms Cholecalciferol 25 mcg 06/04/25 09:00 07/07/25 08:18 Cholecalciferol 25 Mcg Tablet PO 25 mcg DAILY WEST Administration Cyclobenzaprine HCl 10 mg 06/18/25 13:19 07/03/25 08:40 Cyclobenzaprine 10 Mg Tablet PO 10 mg TID PRN Administration Spasms Docusate Sodium 250 - 500 mg 07/02/25 10:35 Docusate Sodium 250 Mg Capsule PO DAILY PRN Constipation Naloxone HCl 0.4 mg 06/13/25 22:08 Naloxone 0.4 Mg/Ml Vial IVP Q10M PRN respiratory depression Polyethylene Glycol 17 gm 07/02/25 10:34 Polyethylene Glycol 3350 17 Gm Packet PO DAILY PRN Constipation Multivit/Folic Acid/Iron 1 tab 05/25/25 08:00 07/07/25 08:18 Vitamin Tablet PO 1 tab DAILYWM WEST Administration Saccharomyces Boulardii 500 mg 06/25/25 17:00 07/07/25 08:17 Saccharomyces Boulardii 250 Mg Capsule PO 500 mg BIDWM WEST Administration Sodium Chloride 10 ml 05/21/25 14:24 06/18/25 00:14 Sodium Chloride Flush 0.9% 10 Ml Syringe IVP 10 ml PRN PRN Administration NEEDED PER PROVIDER ORDERS Thiamine HCl 100 mg 05/30/25 09:00 07/07/25 08:18 Thiamine 100 Mg Tablet PO 100 mg DAILY WEST Administration Zinc Oxide 113 gm 06/28/25 12:00 08/18/25 00:49 Cod Liver Oil/Zinc Oxide 113 Gm Tube TOP 1 applic PRN PRN Administration Skin Care Objective Vital Signs/Intake & Output Reviewed Vital Signs: Yes Vital Signs: Vital Signs x48h Temp Pulse Resp BP Pulse Ox 07/07/25 07:32 36.6 C 62 18 128/88 94 Intake & Output: Intake & Output 07/04/25 07/05/25 07/06/25 07/07/25 23:59 23:59 23:59 23:59 Intake Total 750 / 750 1230 / 1230 1290 / 1290 707 / 707 Balance 750 / 750 1230 / 1230 1290 / 1290 707 / 707 Weight (kg) 44 kg Objective General Appearance: positive No acute distress and Alert Eyes Bilateral: positive Normal inspection ENT: positive ENT inspection nml and Other; negative Oral lesions (no signs of thrush) or Dry mucous membranes Neck: positive Nml inspection Respiratory: positive No respiratory distress and Breath sounds nml Cardiovascular: positive Regular rate & rhythm Abdomen: positive No distention Skin: positive Color nml, No rash and Dry Extremities: positive Nml appearance and No pedal edema Neurologic/Psychiatric: positive Other (Tracks with eyes, smiles with conversation) Lab Results 06/27/25 16:37 06/27/25 16:37 Other Labs: Lab Results x24hrs 07/06/25 Range/Units 13:10 Nasal Adenovirus (PCR) NOT DETECTED Nasal B. parapertussis DNA (PCR) NOT DETECTED Nasal Coronavir 229E PCR NOT DETECTED Nasal Coronavir HKU1 PCR NOT DETECTED Nasal Coronavir NL63 PCR NOT DETECTED Nasal Coronavir OC43 PCR NOT DETECTED Nasal Enterovir/Rhinovir PCR NOT DETECTED Nasal Influenza B PCR NOT DETECTED Nasal Influenza A PCR NOT DETECTED Nasal Parainfluen 1 PCR NOT DETECTED Nasal Parainfluen 2 PCR NOT DETECTED Nasal Parainfluen 3 PCR NOT DETECTED Nasal Parainfluen 4 PCR NOT DETECTED Nasal RSV (PCR) NOT DETECTED Nasal B.pertussis DNA PCR NOT DETECTED Nasal C.pneumoniae (PCR) NOT DETECTED Rory Human Metapneumo PCR NOT DETECTED Nasal M.pneumoniae (PCR) NOT DETECTED Nasal SARS-CoV-2 (PCR) NOT DETECTED Sepsis Event Note (H) Evaluation Current Stage of Sepsis: Ruled out Assessment/Plan Problem List (1) Upper respiratory infection: Impression: workup 06/27:no infilatrate on CXR, no hypoxia. resp panel negative. WBC normal. BMP unremarkable. resolved (2) Polysubstance abuse: Impression: She has been in the hospital since 05/13/2025 UDS on presentation was positive for opiates, amphetamine, methamphetamine, cocaine She is out of the window for any acute withdrawal. She has not had any acute changes in her mental status for at least a week. 06/13: She is having some overall tenseness and hyperactivity, likely a psychomotor side effect of her polysubstance abuse. I am starting Suboxone 8-2 mg SL daily and will monitor for effect versus toxicity 05/20 7: She did not tolerate her dose of Suboxone very well. She was very lethargic through most of yesterday afternoon and is still only responding to pain. Last night I gave her a dose of Narcan with minimal effect. I gave her a liter of IV fluids and sent her for CT head out of an abundance of caution which showed no acute changes. I have discontinued her Suboxone, and I am keeping her on continuous pulse ox to watch for respiratory depression. I have Narcan ordered as needed. Chest x-ray was performed as she had some desaturation requiring 2 L O2. This showed no acute findings. 06/15: Her mentation is much improved today as the Suboxone is washing out of her system. As we do not stock smaller doses of Suboxone, we will likely not pursue this any further. She is back to her mentation as of a few days ago. Remains medically clear. Today is nonbillable rounding 06/16: No change in condition, no change in plan. (3) Altered mental status: Impression: Altered mentation likely secondary to polysubstance abuse UDS on presentation positive for opiates, amphetamine, methamphetamine, cocaine Patient was held in observation, and repeat CT and MRI were performed. MRI shows diffuse white matter hyperintense signal which may represent edema. Not the typical presentation of press Her altered mentation is not affected by her blood pressure, meaning it is not improved whenever her blood pressure is within normal limits Case discussed with neurology on 05/26, who recommended LP, but stated that this is likely sequela of hypoxic event from drug use. thiamine 500 mg IM 3 times daily started on 05 26,for 3 days, now on po thiamine daily 06/06 Daughter Ina made contact with RN. I also spoke with her, at this point, her mother's condition is sub acute. No need for interventions. Ina is aware her mother needs skilled nursing care. She is willing to assist with this, but neither she, nor her mother have a safe place to live. Qualifiers: Altered mental status type: stupor Qualified Code(s): R40.1 - Stupor (4) Pubic bone fracture: Impression: X-ray hip on 05/25 shows moderately displaced right inferior pubic ramus fracture with extension in the medial acetabular column and suspicion for extension to the pelvic ring. Case was discussed with on-call orthopedist, who reports this is nonoperative. She is full weightbearing as tolerated and will need a walker at discharge. If her mentation improves, we will order PT jesús, currently not able to particpate with PT. She is getting to the chair daily with staff assistance (5) Malnutrition: Impression: Severe protein calorie malnutrition given obvious muscle wasting, loss of subcutaneous fat, bedridden, BMI 14.9. Nursing assisting with meals. Nutrition following. Weight not changing, but I question accuracy. She is eating everything that is offered, and getting both meals and snacks. This patient's diagnosis and treatment plan was discussed this AM with attending physician as a part of multi disciplinary rounding meeting. non billable rounding Qualifiers: Malnutrition type: unspecified type Qualified Code(s): E46 - Unspecified protein-calorie malnutrition
--- NOTE | 2025-07-08 19:56 | PROVIDER PROGRESS NOTE ---
Subjective Prog Note Date Prog Note Date: 07/08/25 Subjective Subjective: She is sitting up in the chair this evening. Replies "hi" to me but otherwise is non verbal. Current Medications Current Medications Current Medications: Current Medications Generic Name Dose Route Start Last Admin Trade Name Falguni PRN Reason Stop Dose Admin Acetaminophen 650 mg 05/21/25 14:24 07/08/25 00:00 Acetaminophen 325 Mg Tablet PO 650 mg Q4HR PRN Administration Pain 1 to 4, or Fever Apixaban 2.5 mg 05/29/25 21:00 07/08/25 09:06 Apixaban 2.5 Mg Tablet PO 2.5 mg BID WEST Administration Calcium Carbonate/Glycine 500 mg 06/04/25 09:00 07/08/25 09:06 Calcium Carbonate Chew 500 Mg Tablet PO 500 mg DAILY WEST Administration Cetirizine HCl 10 mg 07/06/25 11:37 Cetirizine 10 Mg Tablet PO DAILY PRN Allergy Symptoms Cholecalciferol 25 mcg 06/04/25 09:00 07/08/25 09:06 Cholecalciferol 25 Mcg Tablet PO 25 mcg DAILY WEST Administration Cyclobenzaprine HCl 10 mg 06/18/25 13:19 07/08/25 06:04 Cyclobenzaprine 10 Mg Tablet PO 10 mg TID PRN Administration Spasms Docusate Sodium 250 - 500 mg 07/02/25 10:35 Docusate Sodium 250 Mg Capsule PO DAILY PRN Constipation Naloxone HCl 0.4 mg 06/13/25 22:08 Naloxone 0.4 Mg/Ml Vial IVP Q10M PRN respiratory depression Polyethylene Glycol 17 gm 07/02/25 10:34 Polyethylene Glycol 3350 17 Gm Packet PO DAILY PRN Constipation Multivit/Folic Acid/Iron 1 tab 05/25/25 08:00 07/08/25 09:06 Vitamin Tablet PO 1 tab DAILYWM WEST Administration Saccharomyces Boulardii 500 mg 06/25/25 17:00 07/08/25 17:12 Saccharomyces Boulardii 250 Mg Capsule PO 500 mg BIDWM WEST Administration Sodium Chloride 10 ml 05/21/25 14:24 06/18/25 00:14 Sodium Chloride Flush 0.9% 10 Ml Syringe IVP 10 ml PRN PRN Administration NEEDED PER PROVIDER ORDERS Thiamine HCl 100 mg 05/30/25 09:00 07/08/25 09:06 Thiamine 100 Mg Tablet PO 100 mg DAILY WEST Administration Zinc Oxide 113 gm 06/28/25 12:00 07/08/25 17:11 Cod Liver Oil/Zinc Oxide 113 Gm Tube TOP 1 applic PRN PRN Administration Skin Care Objective Vital Signs/Intake & Output Reviewed Vital Signs: Yes Vital Signs: Vital Signs x48h Temp Pulse Resp BP BP Pulse Ox 07/08/25 15:49 104 H 129/100 H 07/08/25 15:44 36.8 C 104 H 20 148/101 H 98 Intake & Output: Intake & Output 07/05/25 07/06/25 07/07/25 07/08/25 23:59 23:59 23:59 23:59 Intake Total 1230 / 1230 1290 / 1290 827 / 827 1100 / 1100 Balance 1230 / 1230 1290 / 1290 827 / 827 1100 / 1100 Objective General Appearance: positive No acute distress and Alert Eyes Bilateral: positive Normal inspection ENT: positive ENT inspection nml Neck: positive Nml inspection Respiratory: positive No respiratory distress and Breath sounds nml Cardiovascular: positive Regular rate & rhythm Abdomen: positive No distention Skin: positive Color nml, No rash and Dry Extremities: positive Nml appearance and No pedal edema Neurologic/Psychiatric: positive Other (Tracks with eyes, smiles with conversation) Lab Results 06/27/25 16:37 06/27/25 16:37 Other Labs: Lab Results x24hrs 07/06/25 Range/Units 13:10 Nasal Adenovirus (PCR) NOT DETECTED Nasal B. parapertussis DNA (PCR) NOT DETECTED Nasal Coronavir 229E PCR NOT DETECTED Nasal Coronavir HKU1 PCR NOT DETECTED Nasal Coronavir NL63 PCR NOT DETECTED Nasal Coronavir OC43 PCR NOT DETECTED Nasal Enterovir/Rhinovir PCR NOT DETECTED Nasal Influenza B PCR NOT DETECTED Nasal Influenza A PCR NOT DETECTED Nasal Parainfluen 1 PCR NOT DETECTED Nasal Parainfluen 2 PCR NOT DETECTED Nasal Parainfluen 3 PCR NOT DETECTED Nasal Parainfluen 4 PCR NOT DETECTED Nasal RSV (PCR) NOT DETECTED Nasal B.pertussis DNA PCR NOT DETECTED Nasal C.pneumoniae (PCR) NOT DETECTED Rory Human Metapneumo PCR NOT DETECTED Nasal M.pneumoniae (PCR) NOT DETECTED Nasal SARS-CoV-2 (PCR) NOT DETECTED Sepsis Event Note (H) Evaluation Current Stage of Sepsis: Ruled out Assessment/Plan Problem List (1) Upper respiratory infection: Impression: workup 06/27:no infilatrate on CXR, no hypoxia. resp panel negative. WBC normal. BMP unremarkable. resolved (2) Polysubstance abuse: Impression: She has been in the hospital since 05/13/2025 UDS on presentation was positive for opiates, amphetamine, methamphetamine, cocaine She is out of the window for any acute withdrawal. She has not had any acute changes in her mental status for at least a week. 06/13: She is having some overall tenseness and hyperactivity, likely a psychomotor side effect of her polysubstance abuse. I am starting Suboxone 8-2 mg SL daily and will monitor for effect versus toxicity 05/20: She did not tolerate her dose of Suboxone very well. She was very lethargic through most of yesterday afternoon and is still only responding to pain. Last night I gave her a dose of Narcan with minimal effect. I gave her a liter of IV fluids and sent her for CT head out of an abundance of caution which showed no acute changes. I have discontinued her Suboxone, and I am keeping her on continuous pulse ox to watch for respiratory depression. I have Narcan ordered as needed. Chest x-ray was performed as she had some desaturation requiring 2 L O2. This showed no acute findings. 06/15: Her mentation is much improved today as the Suboxone is washing out of her system. As we do not stock smaller doses of Suboxone, we will likely not pursue this any further. She is back to her mentation as of a few days ago. Remains medically clear. Today is nonbillable rounding 06/16: No change in condition, no change in plan. (3) Altered mental status: Impression: Altered mentation likely secondary to polysubstance abuse UDS on presentation positive for opiates, amphetamine, methamphetamine, cocaine Patient was held in observation, and repeat CT and MRI were performed. MRI shows diffuse white matter hyperintense signal which may represent edema. Not the typical presentation of press Her altered mentation is not affected by her blood pressure, meaning it is not improved whenever her blood pressure is within normal limits Case discussed with neurology on 05/26, who recommended LP, but stated that this is likely sequela of hypoxic event from drug use. thiamine 500 mg IM 3 times daily started on 05 26,for 3 days, now on po thiamine daily 06/06 Daughter Ina made contact with RN. I also spoke with her, at this point, her mother's condition is sub acute. No need for interventions. Ina is aware her mother needs jail care. She is willing to assist with this, but neither she, nor her mother have a safe place to live. Qualifiers: Altered mental status type: stupor Qualified Code(s): R40.1 - Stupor (4) Pubic bone fracture: Impression: X-ray hip on 05/25 shows moderately displaced right inferior pubic ramus fracture with extension in the medial acetabular column and suspicion for extension to the pelvic ring. Case was discussed with on-call orthopedist, who reports this is nonoperative. She is full weightbearing as tolerated and will need a walker at discharge. If her mentation improves, we will order PT jesús, currently not able to particpate with PT. She has been seen 1x for PT, no rehab potentential. She is getting to the chair daily with staff assistance (5) Malnutrition: Impression: Severe protein calorie malnutrition given obvious muscle wasting, loss of subcutaneous fat, bedridden. She is eatiing 100% of meals. BMI increased from 14.9 to 15.7. This is an improvmeent. This patient's diagnosis and treatment plan was discussed this AM with attending physician as a part of multi disciplinary rounding meeting. non billable rounding Qualifiers: Malnutrition type: unspecified type Qualified Code(s): E46 - Unspecified protein-calorie malnutrition
--- NOTE | 2025-07-09 14:58 | PROVIDER PROGRESS NOTE ---
Subjective Prog Note Date Prog Note Date: 07/09/25 Subjective Subjective: eating well up in chair this evening. not verbal today Current Medications Current Medications Current Medications: Current Medications Generic Name Dose Route Start Last Admin Trade Name Falguni PRN Reason Stop Dose Admin Acetaminophen 650 mg 05/21/25 14:24 07/08/25 00:00 Acetaminophen 325 Mg Tablet PO 650 mg Q4HR PRN Administration Pain 1 to 4, or Fever Apixaban 2.5 mg 05/29/25 21:00 07/09/25 08:13 Apixaban 2.5 Mg Tablet PO 2.5 mg BID WEST Administration Calcium Carbonate/Glycine 500 mg 06/04/25 09:00 07/09/25 08:13 Calcium Carbonate Chew 500 Mg Tablet PO 500 mg DAILY WEST Administration Cetirizine HCl 10 mg 07/06/25 11:37 Cetirizine 10 Mg Tablet PO DAILY PRN Allergy Symptoms Cholecalciferol 25 mcg 06/04/25 09:00 07/09/25 08:14 Cholecalciferol 25 Mcg Tablet PO 25 mcg DAILY WEST Administration Cyclobenzaprine HCl 10 mg 06/18/25 13:19 07/08/25 06:04 Cyclobenzaprine 10 Mg Tablet PO 10 mg TID PRN Administration Spasms Docusate Sodium 250 - 500 mg 07/02/25 10:35 Docusate Sodium 250 Mg Capsule PO DAILY PRN Constipation Naloxone HCl 0.4 mg 06/13/25 22:08 Naloxone 0.4 Mg/Ml Vial IVP Q10M PRN respiratory depression Polyethylene Glycol 17 gm 07/02/25 10:34 Polyethylene Glycol 3350 17 Gm Packet PO DAILY PRN Constipation Multivit/Folic Acid/Iron 1 tab 05/25/25 08:00 07/09/25 08:14 Vitamin Tablet PO 1 tab DAILYWM WEST Administration Saccharomyces Boulardii 500 mg 06/25/25 17:00 07/09/25 08:13 Saccharomyces Boulardii 250 Mg Capsule PO 500 mg BIDWM WEST Administration Sodium Chloride 10 ml 05/21/25 14:24 06/18/25 00:14 Sodium Chloride Flush 0.9% 10 Ml Syringe IVP 10 ml PRN PRN Administration NEEDED PER PROVIDER ORDERS Thiamine HCl 100 mg 05/30/25 09:00 07/09/25 08:14 Thiamine 100 Mg Tablet PO 100 mg DAILY WEST Administration Zinc Oxide 113 gm 06/28/25 12:00 07/09/25 00:18 Cod Liver Oil/Zinc Oxide 113 Gm Tube TOP 1 applic PRN PRN Administration Skin Care Objective Vital Signs/Intake & Output Reviewed Vital Signs: Yes Vital Signs: Vital Signs x48h Temp Pulse Resp BP Pulse Ox 07/09/25 09:53 36.6 C 102 H 12 131/90 H 94 Intake & Output: Intake & Output 07/06/25 07/07/25 07/08/25 07/09/25 23:59 23:59 23:59 23:59 Intake Total 1290 / 1290 827 / 827 1500 / 1500 560 / 560 Balance 1290 / 1290 827 / 827 1500 / 1500 560 / 560 Objective General Appearance: positive No acute distress and Alert Eyes Bilateral: positive Normal inspection ENT: positive ENT inspection nml Neck: positive Nml inspection Respiratory: positive No respiratory distress and Breath sounds nml Cardiovascular: positive Regular rate & rhythm Abdomen: positive No distention Skin: positive Color nml, No rash and Dry Extremities: positive Nml appearance and No pedal edema Neurologic/Psychiatric: positive Other (Tracks with eyes, smiles when spoken to) Lab Results 06/27/25 16:37 06/27/25 16:37 Other Labs: Lab Results x24hrs 07/06/25 Range/Units 13:10 Nasal Adenovirus (PCR) NOT DETECTED Nasal B. parapertussis DNA (PCR) NOT DETECTED Nasal Coronavir 229E PCR NOT DETECTED Nasal Coronavir HKU1 PCR NOT DETECTED Nasal Coronavir NL63 PCR NOT DETECTED Nasal Coronavir OC43 PCR NOT DETECTED Nasal Enterovir/Rhinovir PCR NOT DETECTED Nasal Influenza B PCR NOT DETECTED Nasal Influenza A PCR NOT DETECTED Nasal Parainfluen 1 PCR NOT DETECTED Nasal Parainfluen 2 PCR NOT DETECTED Nasal Parainfluen 3 PCR NOT DETECTED Nasal Parainfluen 4 PCR NOT DETECTED Nasal RSV (PCR) NOT DETECTED Nasal B.pertussis DNA PCR NOT DETECTED Nasal C.pneumoniae (PCR) NOT DETECTED Rory Human Metapneumo PCR NOT DETECTED Nasal M.pneumoniae (PCR) NOT DETECTED Nasal SARS-CoV-2 (PCR) NOT DETECTED Sepsis Event Note (H) Evaluation Current Stage of Sepsis: Ruled out Assessment/Plan Problem List (1) Upper respiratory infection: Impression: workup 06/27:no infilatrate on CXR, no hypoxia. resp panel negative. WBC normal. BMP unremarkable. resolved (2) Polysubstance abuse: Impression: She has been in the hospital since 05/13/2025 UDS on presentation was positive for opiates, amphetamine, methamphetamine, cocaine She is out of the window for any acute withdrawal. She has not had any acute changes in her mental status for at least a week. 06/13: She is having some overall tenseness and hyperactivity, likely a psychomotor side effect of her polysubstance abuse. I am starting Suboxone 8-2 mg SL daily and will monitor for effect versus toxicity 05/20 7: She did not tolerate her dose of Suboxone very well. She was very lethargic through most of yesterday afternoon and is still only responding to pain. Last night I gave her a dose of Narcan with minimal effect. I gave her a liter of IV fluids and sent her for CT head out of an abundance of caution which showed no acute changes. I have discontinued her Suboxone, and I am keeping her on continuous pulse ox to watch for respiratory depression. I have Narcan ordered as needed. Chest x-ray was performed as she had some desaturation requiring 2 L O2. This showed no acute findings. 06/15: Her mentation is much improved today as the Suboxone is washing out of her system. As we do not stock smaller doses of Suboxone, we will likely not pursue this any further. She is back to her mentation as of a few days ago. Remains medically clear. Today is nonbillable rounding 06/16: No change in condition, no change in plan. (3) Altered mental status: Impression: Altered mentation likely secondary to polysubstance abuse UDS on presentation positive for opiates, amphetamine, methamphetamine, cocaine Patient was held in observation, and repeat CT and MRI were performed. MRI shows diffuse white matter hyperintense signal which may represent edema. Not the typical presentation of press Her altered mentation is not affected by her blood pressure, meaning it is not improved whenever her blood pressure is within normal limits Case discussed with neurology on 05/26, who recommended LP, but stated that this is likely sequela of hypoxic event from drug use. thiamine 500 mg IM 3 times daily started on 05 26,for 3 days, now on po thiamine daily 06/06 Daughter Ina made contact with RN. I also spoke with her, at this point, her mother's condition is sub acute. No need for interventions. Ina is aware her mother needs jail care. She is willing to assist with this, but neither she, nor her mother have a safe place to live. Qualifiers: Altered mental status type: stupor Qualified Code(s): R40.1 - Stupor (4) Pubic bone fracture: Impression: X-ray hip on 05/25 shows moderately displaced right inferior pubic ramus fracture with extension in the medial acetabular column and suspicion for extension to the pelvic ring. Case was discussed with on-call orthopedist, who reports this is nonoperative. She is full weightbearing as tolerated and will need a walker at discharge. If her mentation improves, we will order PT jesús, currently not able to particpate with PT. She has been seen 1x for PT, no rehab potentential. She is getting to the chair daily with staff assistance (5) Malnutrition: Impression: Severe protein calorie malnutrition given obvious muscle wasting, loss of subcutaneous fat, bedridden. She is eatiing 100% of meals. BMI increased from 14.9 to 15.7. This is an improvmeent. This patient's diagnosis and treatment plan was discussed this AM with attending physician as a part of multi disciplinary rounding meeting. non billable rounding Qualifiers: Malnutrition type: unspecified type Qualified Code(s): E46 - Unspecified protein-calorie malnutrition
--- NOTE | 2025-07-10 18:35 | PROVIDER PROGRESS NOTE ---
Subjective Prog Note Date Prog Note Date: 07/10/25 Subjective Subjective: lying in bed this evening. Current Medications Current Medications Current Medications: Current Medications Generic Name Dose Route Start Last Admin Trade Name Falguni PRN Reason Stop Dose Admin Acetaminophen 650 mg 05/21/25 14:24 07/10/25 01:26 Acetaminophen 325 Mg Tablet PO 650 mg Q4HR PRN Administration Pain 1 to 4, or Fever Apixaban 2.5 mg 05/29/25 21:00 07/10/25 08:25 Apixaban 2.5 Mg Tablet PO 2.5 mg BID WEST Administration Calcium Carbonate/Glycine 500 mg 06/04/25 09:00 07/10/25 08:25 Calcium Carbonate Chew 500 Mg Tablet PO 500 mg DAILY WEST Administration Cetirizine HCl 10 mg 07/06/25 11:37 Cetirizine 10 Mg Tablet PO DAILY PRN Allergy Symptoms Cholecalciferol 25 mcg 06/04/25 09:00 07/10/25 08:25 Cholecalciferol 25 Mcg Tablet PO 25 mcg DAILY WEST Administration Cyclobenzaprine HCl 10 mg 06/18/25 13:19 07/08/25 06:04 Cyclobenzaprine 10 Mg Tablet PO 10 mg TID PRN Administration Spasms Docusate Sodium 250 - 500 mg 07/02/25 10:35 Docusate Sodium 250 Mg Capsule PO DAILY PRN Constipation Naloxone HCl 0.4 mg 06/13/25 22:08 Naloxone 0.4 Mg/Ml Vial IVP Q10M PRN respiratory depression Polyethylene Glycol 17 gm 07/02/25 10:34 Polyethylene Glycol 3350 17 Gm Packet PO DAILY PRN Constipation Multivit/Folic Acid/Iron 1 tab 05/25/25 08:00 07/10/25 08:25 Vitamin Tablet PO 1 tab DAILYWM WEST Administration Saccharomyces Boulardii 500 mg 06/25/25 17:00 07/10/25 17:09 Saccharomyces Boulardii 250 Mg Capsule PO 500 mg BIDWM WEST Administration Sodium Chloride 10 ml 05/21/25 14:24 06/18/25 00:14 Sodium Chloride Flush 0.9% 10 Ml Syringe IVP 10 ml PRN PRN Administration NEEDED PER PROVIDER ORDERS Thiamine HCl 100 mg 05/30/25 09:00 07/10/25 08:25 Thiamine 100 Mg Tablet PO 100 mg DAILY WEST Administration Zinc Oxide 113 gm 06/28/25 12:00 07/10/25 01:26 Cod Liver Oil/Zinc Oxide 113 Gm Tube TOP 1 applic PRN PRN Administration Skin Care Objective Vital Signs/Intake & Output Reviewed Vital Signs: Yes Vital Signs: Vital Signs x48h Temp Pulse Resp BP Pulse Ox 07/10/25 16:37 36.5 C 98 18 129/82 95 Intake & Output: Intake & Output 07/07/25 07/08/25 07/09/25 07/10/25 23:59 23:59 23:59 23:59 Intake Total 827 / 827 1500 / 1500 1020 / 1020 1077 / 1077 Balance 827 / 827 1500 / 1500 1020 / 1020 1077 / 1077 Objective General Appearance: positive No acute distress and Alert Eyes Bilateral: positive Normal inspection ENT: positive ENT inspection nml Neck: positive Nml inspection Respiratory: positive No respiratory distress and Breath sounds nml Cardiovascular: positive Regular rate & rhythm Abdomen: positive No distention Skin: positive Color nml, No rash and Dry Extremities: positive Nml appearance and No pedal edema Neurologic/Psychiatric: positive Other (Tracks with eyes, smiles when spoken to) Lab Results 06/27/25 16:37 06/27/25 16:37 Other Labs: Lab Results x24hrs 07/06/25 Range/Units 13:10 Nasal Adenovirus (PCR) NOT DETECTED Nasal B. parapertussis DNA (PCR) NOT DETECTED Nasal Coronavir 229E PCR NOT DETECTED Nasal Coronavir HKU1 PCR NOT DETECTED Nasal Coronavir NL63 PCR NOT DETECTED Nasal Coronavir OC43 PCR NOT DETECTED Nasal Enterovir/Rhinovir PCR NOT DETECTED Nasal Influenza B PCR NOT DETECTED Nasal Influenza A PCR NOT DETECTED Nasal Parainfluen 1 PCR NOT DETECTED Nasal Parainfluen 2 PCR NOT DETECTED Nasal Parainfluen 3 PCR NOT DETECTED Nasal Parainfluen 4 PCR NOT DETECTED Nasal RSV (PCR) NOT DETECTED Nasal B.pertussis DNA PCR NOT DETECTED Nasal C.pneumoniae (PCR) NOT DETECTED Rory Human Metapneumo PCR NOT DETECTED Nasal M.pneumoniae (PCR) NOT DETECTED Nasal SARS-CoV-2 (PCR) NOT DETECTED Sepsis Event Note (H) Evaluation Current Stage of Sepsis: Ruled out Assessment/Plan Problem List (1) Polysubstance abuse: Impression: She has been in the hospital since 05/13/2025 UDS on presentation was positive for opiates, amphetamine, methamphetamine, cocaine She is out of the window for any acute withdrawal. She has not had any acute changes in her mental status for at least a week. 06/13: She is having some overall tenseness and hyperactivity, likely a psychomotor side effect of her polysubstance abuse. I am starting Suboxone 8-2 mg SL daily and will monitor for effect versus toxicity 05/20: She did not tolerate her dose of Suboxone very well. She was very lethargic through most of yesterday afternoon and is still only responding to pain. Last night I gave her a dose of Narcan with minimal effect. I gave her a liter of IV fluids and sent her for CT head out of an abundance of caution which showed no acute changes. I have discontinued her Suboxone, and I am keeping her on continuous pulse ox to watch for respiratory depression. I have Narcan ordered as needed. Chest x-ray was performed as she had some desaturation requiring 2 L O2. This showed no acute findings. 06/15: Her mentation is much improved today as the Suboxone is washing out of her system. As we do not stock smaller doses of Suboxone, we will likely not pursue this any further. She is back to her mentation as of a few days ago. Remains medically clear. Today is nonbillable rounding 06/16: No change in condition, no change in plan. (2) Altered mental status: Impression: Altered mentation likely secondary to polysubstance abuse UDS on presentation positive for opiates, amphetamine, methamphetamine, cocaine Patient was held in observation, and repeat CT and MRI were performed. MRI shows diffuse white matter hyperintense signal which may represent edema. Not the typical presentation of press Her altered mentation is not affected by her blood pressure, meaning it is not improved whenever her blood pressure is within normal limits Case discussed with neurology on 05/26, who recommended LP, but stated that this is likely sequela of hypoxic event from drug use. thiamine 500 mg IM 3 times daily started on 05 26,for 3 days, now on po thiamine daily 06/06 Daughter Ina made contact with RN. I also spoke with her, at this point, her mother's condition is sub acute. No need for interventions. Ina is aware her mother needs skilled nursing care. She is willing to assist with this, but neither she, nor her mother have a safe place to live. Qualifiers: Altered mental status type: stupor Qualified Code(s): R40.1 - Stupor (3) Pubic bone fracture: Impression: X-ray hip on 05/25 shows moderately displaced right inferior pubic ramus fracture with extension in the medial acetabular column and suspicion for extension to the pelvic ring. Case was discussed with on-call orthopedist, who reports this is nonoperative. She is full weightbearing as tolerated and will need a walker at discharge. If her mentation improves, we will order PT jesús, currently not able to particpate with PT. She has been seen 1x for PT, no rehab potentential. She is getting to the chair daily with staff assistance (4) Malnutrition: Impression: Severe protein calorie malnutrition given obvious muscle wasting, loss of subcutaneous fat, bedridden. She is eatiing 100% of meals. BMI increased from 14.9 to 15.7. This is an improvmeent. This patient's diagnosis and treatment plan was discussed this AM with attending physician as a part of multi disciplinary rounding meeting. non billable rounding Qualifiers: Malnutrition type: unspecified type Qualified Code(s): E46 - Unspecified protein-calorie malnutrition
--- NOTE | 2025-07-11 19:35 | PROVIDER PROGRESS NOTE ---
Subjective Prog Note Date Prog Note Date: 07/11/25 Subjective Subjective: In bed holding up her blanket tonight, smiles and laughs at me, but not verbal Current Medications Current Medications Current Medications: Current Medications Generic Name Dose Route Start Last Admin Trade Name Falguni PRN Reason Stop Dose Admin Acetaminophen 650 mg 05/21/25 14:24 07/10/25 01:26 Acetaminophen 325 Mg Tablet PO 650 mg Q4HR PRN Administration Pain 1 to 4, or Fever Apixaban 2.5 mg 05/29/25 21:00 07/11/25 08:46 Apixaban 2.5 Mg Tablet PO 2.5 mg BID WEST Administration Calcium Carbonate/Glycine 500 mg 06/04/25 09:00 07/11/25 08:46 Calcium Carbonate Chew 500 Mg Tablet PO 500 mg DAILY WEST Administration Cetirizine HCl 10 mg 07/06/25 11:37 Cetirizine 10 Mg Tablet PO DAILY PRN Allergy Symptoms Cholecalciferol 25 mcg 06/04/25 09:00 07/11/25 08:46 Cholecalciferol 25 Mcg Tablet PO 25 mcg DAILY WEST Administration Cyclobenzaprine HCl 10 mg 06/18/25 13:19 07/08/25 06:04 Cyclobenzaprine 10 Mg Tablet PO 10 mg TID PRN Administration Spasms Docusate Sodium 250 - 500 mg 07/02/25 10:35 Docusate Sodium 250 Mg Capsule PO DAILY PRN Constipation Naloxone HCl 0.4 mg 06/13/25 22:08 Naloxone 0.4 Mg/Ml Vial IVP Q10M PRN respiratory depression Polyethylene Glycol 17 gm 07/02/25 10:34 Polyethylene Glycol 3350 17 Gm Packet PO DAILY PRN Constipation Multivit/Folic Acid/Iron 1 tab 05/25/25 08:00 07/11/25 08:46 Vitamin Tablet PO 1 tab DAILYWM WEST Administration Saccharomyces Boulardii 500 mg 06/25/25 17:00 07/11/25 18:20 Saccharomyces Boulardii 250 Mg Capsule PO 500 mg BIDWM WEST Administration Sodium Chloride 10 ml 05/21/25 14:24 06/18/25 00:14 Sodium Chloride Flush 0.9% 10 Ml Syringe IVP 10 ml PRN PRN Administration NEEDED PER PROVIDER ORDERS Thiamine HCl 100 mg 05/30/25 09:00 07/11/25 08:46 Thiamine 100 Mg Tablet PO 100 mg DAILY WEST Administration Zinc Oxide 113 gm 06/28/25 12:00 07/10/25 01:26 Cod Liver Oil/Zinc Oxide 113 Gm Tube TOP 1 applic PRN PRN Administration Skin Care Objective Vital Signs/Intake & Output Reviewed Vital Signs: Yes Vital Signs: Vital Signs x48h Temp Pulse Resp BP Pulse Ox 07/11/25 15:51 36.5 C 92 21 155/100 H 93 Intake & Output: Intake & Output 07/08/25 07/09/25 07/10/25 07/11/25 23:59 23:59 23:59 23:59 Intake Total 1500 / 1500 1020 / 1020 1417 / 1417 120 / 120 Balance 1500 / 1500 1020 / 1020 1417 / 1417 120 / 120 Objective General Appearance: positive No acute distress and Alert Eyes Bilateral: positive Normal inspection ENT: positive ENT inspection nml Neck: positive Nml inspection Respiratory: positive No respiratory distress and Breath sounds nml Cardiovascular: positive Regular rate & rhythm Abdomen: positive No distention Skin: positive Color nml, No rash and Dry Extremities: positive Nml appearance and No pedal edema Neurologic/Psychiatric: positive Other (Tracks with eyes, smiles when spoken to) Lab Results 06/27/25 16:37 06/27/25 16:37 Other Labs: Lab Results x24hrs 07/06/25 Range/Units 13:10 Nasal Adenovirus (PCR) NOT DETECTED Nasal B. parapertussis DNA (PCR) NOT DETECTED Nasal Coronavir 229E PCR NOT DETECTED Nasal Coronavir HKU1 PCR NOT DETECTED Nasal Coronavir NL63 PCR NOT DETECTED Nasal Coronavir OC43 PCR NOT DETECTED Nasal Enterovir/Rhinovir PCR NOT DETECTED Nasal Influenza B PCR NOT DETECTED Nasal Influenza A PCR NOT DETECTED Nasal Parainfluen 1 PCR NOT DETECTED Nasal Parainfluen 2 PCR NOT DETECTED Nasal Parainfluen 3 PCR NOT DETECTED Nasal Parainfluen 4 PCR NOT DETECTED Nasal RSV (PCR) NOT DETECTED Nasal B.pertussis DNA PCR NOT DETECTED Nasal C.pneumoniae (PCR) NOT DETECTED Rory Human Metapneumo PCR NOT DETECTED Nasal M.pneumoniae (PCR) NOT DETECTED Nasal SARS-CoV-2 (PCR) NOT DETECTED Sepsis Event Note (H) Evaluation Current Stage of Sepsis: Ruled out Assessment/Plan Problem List (1) Polysubstance abuse: Impression: She has been in the hospital since 05/13/2025 UDS on presentation was positive for opiates, amphetamine, methamphetamine, cocaine She is out of the window for any acute withdrawal. She has not had any acute changes in her mental status for at least a week. 06/13: She is having some overall tenseness and hyperactivity, likely a psychomotor side effect of her polysubstance abuse. I am starting Suboxone 8-2 mg SL daily and will monitor for effect versus toxicity 05/20: She did not tolerate her dose of Suboxone very well. She was very lethargic through most of yesterday afternoon and is still only responding to pain. Last night I gave her a dose of Narcan with minimal effect. I gave her a liter of IV fluids and sent her for CT head out of an abundance of caution which showed no acute changes. I have discontinued her Suboxone, and I am keeping her on continuous pulse ox to watch for respiratory depression. I have Narcan ordered as needed. Chest x-ray was performed as she had some desaturation requiring 2 L O2. This showed no acute findings. 06/15: Her mentation is much improved today as the Suboxone is washing out of her system. As we do not stock smaller doses of Suboxone, we will likely not pursue this any further. She is back to her mentation as of a few days ago. Remains medically clear. Today is nonbillable rounding 06/16: No change in condition, no change in plan. (2) Altered mental status: Impression: Altered mentation likely secondary to polysubstance abuse UDS on presentation positive for opiates, amphetamine, methamphetamine, cocaine Patient was held in observation, and repeat CT and MRI were performed. MRI shows diffuse white matter hyperintense signal which may represent edema. Not the typical presentation of press Her altered mentation is not affected by her blood pressure, meaning it is not improved whenever her blood pressure is within normal limits Case discussed with neurology on 05/26, who recommended LP, but stated that this is likely sequela of hypoxic event from drug use. thiamine 500 mg IM 3 times daily started on 05 26,for 3 days, now on po thiamine daily 06/06 Daughter Ina made contact with RN. I also spoke with her, at this point, her mother's condition is sub acute. No need for interventions. Ina is aware her mother needs combination machine tender care. She is willing to assist with this, but neither she, nor her mother have a safe place to live. Qualifiers: Altered mental status type: stupor Qualified Code(s): R40.1 - Stupor (3) Pubic bone fracture: Impression: X-ray hip on 05/25 shows moderately displaced right inferior pubic ramus fracture with extension in the medial acetabular column and suspicion for extension to the pelvic ring. Case was discussed with on-call orthopedist, who reports this is nonoperative. She is full weightbearing as tolerated and will need a walker at discharge. If her mentation improves, we will order PT jesús, currently not able to particpate with PT. She has been seen 1x for PT, no rehab potentential. She is getting to the chair daily with staff assistance (4) Malnutrition: Impression: Severe protein calorie malnutrition given obvious muscle wasting, loss of subcutaneous fat, bedridden. She is eatiing 100% of meals. BMI increased from 14.9 to 15.7. This is an improvmeent. This patient's diagnosis and treatment plan was discussed this AM with attending physician as a part of multi disciplinary rounding meeting. non billable rounding Qualifiers: Malnutrition type: unspecified type Qualified Code(s): E46 - Unspecified protein-calorie malnutrition
--- NOTE | 2025-07-12 14:20 | PROVIDER PROGRESS NOTE ---
Subjective Prog Note Date Prog Note Date: 07/12/25 Subjective Subjective: resting in bed. Current Medications Current Medications Current Medications: Current Medications Generic Name Dose Route Start Last Admin Trade Name Falguni PRN Reason Stop Dose Admin Acetaminophen 650 mg 05/21/25 14:24 07/12/25 09:34 Acetaminophen 325 Mg Tablet PO 650 mg Q4HR PRN Administration Pain 1 to 4, or Fever Apixaban 2.5 mg 05/29/25 21:00 07/12/25 09:33 Apixaban 2.5 Mg Tablet PO 2.5 mg BID WEST Administration Calcium Carbonate/Glycine 500 mg 06/04/25 09:00 07/12/25 09:33 Calcium Carbonate Chew 500 Mg Tablet PO 500 mg DAILY WEST Administration Cetirizine HCl 10 mg 07/06/25 11:37 Cetirizine 10 Mg Tablet PO DAILY PRN Allergy Symptoms Cholecalciferol 25 mcg 06/04/25 09:00 07/12/25 09:33 Cholecalciferol 25 Mcg Tablet PO 25 mcg DAILY WEST Administration Cyclobenzaprine HCl 10 mg 06/18/25 13:19 07/08/25 06:04 Cyclobenzaprine 10 Mg Tablet PO 10 mg TID PRN Administration Spasms Docusate Sodium 250 - 500 mg 07/02/25 10:35 Docusate Sodium 250 Mg Capsule PO DAILY PRN Constipation Naloxone HCl 0.4 mg 06/13/25 22:08 Naloxone 0.4 Mg/Ml Vial IVP Q10M PRN respiratory depression Polyethylene Glycol 17 gm 07/02/25 10:34 Polyethylene Glycol 3350 17 Gm Packet PO DAILY PRN Constipation Multivit/Folic Acid/Iron 1 tab 05/25/25 08:00 07/12/25 09:34 Vitamin Tablet PO 1 tab DAILYWM WEST Administration Saccharomyces Boulardii 500 mg 06/25/25 17:00 07/12/25 09:34 Saccharomyces Boulardii 250 Mg Capsule PO 500 mg BIDWM WEST Administration Sodium Chloride 10 ml 05/21/25 14:24 06/18/25 00:14 Sodium Chloride Flush 0.9% 10 Ml Syringe IVP 10 ml PRN PRN Administration NEEDED PER PROVIDER ORDERS Thiamine HCl 100 mg 05/30/25 09:00 07/12/25 09:33 Thiamine 100 Mg Tablet PO 100 mg DAILY WEST Administration Zinc Oxide 113 gm 06/28/25 12:00 07/10/25 01:26 Cod Liver Oil/Zinc Oxide 113 Gm Tube TOP 1 applic PRN PRN Administration Skin Care Objective Vital Signs/Intake & Output Reviewed Vital Signs: Yes Vital Signs: Vital Signs x48h Temp Pulse Pulse Resp BP BP Pulse Ox 07/12/25 13:00 37.0 C 108 H 22 96 07/12/25 09:27 36.5 C 107 H 28 H 158/112 H 157/104 H 94 Intake & Output: Intake & Output 07/09/25 07/10/25 07/11/25 07/12/25 23:59 23:59 23:59 23:59 Intake Total 1020 / 1020 1417 / 1417 520 / 520 480 / 480 Balance 1020 / 1020 1417 / 1417 520 / 520 480 / 480 Weight (kg) 45 kg Objective General Appearance: positive No acute distress and Alert Eyes Bilateral: positive Normal inspection ENT: positive ENT inspection nml Neck: positive Nml inspection Respiratory: positive No respiratory distress and Breath sounds nml Cardiovascular: positive Regular rate & rhythm Abdomen: positive No distention Skin: positive Color nml, No rash and Dry Extremities: positive Nml appearance and No pedal edema Neurologic/Psychiatric: positive Other (does not interact w me today) Lab Results 06/27/25 16:37 06/27/25 16:37 Other Labs: Lab Results x24hrs 07/06/25 Range/Units 13:10 Nasal Adenovirus (PCR) NOT DETECTED Nasal B. parapertussis DNA (PCR) NOT DETECTED Nasal Coronavir 229E PCR NOT DETECTED Nasal Coronavir HKU1 PCR NOT DETECTED Nasal Coronavir NL63 PCR NOT DETECTED Nasal Coronavir OC43 PCR NOT DETECTED Nasal Enterovir/Rhinovir PCR NOT DETECTED Nasal Influenza B PCR NOT DETECTED Nasal Influenza A PCR NOT DETECTED Nasal Parainfluen 1 PCR NOT DETECTED Nasal Parainfluen 2 PCR NOT DETECTED Nasal Parainfluen 3 PCR NOT DETECTED Nasal Parainfluen 4 PCR NOT DETECTED Nasal RSV (PCR) NOT DETECTED Nasal B.pertussis DNA PCR NOT DETECTED Nasal C.pneumoniae (PCR) NOT DETECTED Rory Human Metapneumo PCR NOT DETECTED Nasal M.pneumoniae (PCR) NOT DETECTED Nasal SARS-CoV-2 (PCR) NOT DETECTED Sepsis Event Note (H) Evaluation Current Stage of Sepsis: Ruled out Assessment/Plan Problem List (1) Polysubstance abuse: Impression: She has been in the hospital since 05/13/2025 UDS on presentation was positive for opiates, amphetamine, methamphetamine, cocaine She is out of the window for any acute withdrawal. She has not had any acute changes in her mental status for at least a week. 06/13: She is having some overall tenseness and hyperactivity, likely a psychomotor side effect of her polysubstance abuse. I am starting Suboxone 8-2 mg SL daily and will monitor for effect versus toxicity 05/20: She did not tolerate her dose of Suboxone very well. She was very lethargic through most of yesterday afternoon and is still only responding to pain. Last night I gave her a dose of Narcan with minimal effect. I gave her a liter of IV fluids and sent her for CT head out of an abundance of caution which showed no acute changes. I have discontinued her Suboxone, and I am keeping her on continuous pulse ox to watch for respiratory depression. I have Narcan ordered as needed. Chest x-ray was performed as she had some desaturation requiring 2 L O2. This showed no acute findings. 06/15: Her mentation is much improved today as the Suboxone is washing out of her system. As we do not stock smaller doses of Suboxone, we will likely not pursue this any further. She is back to her mentation as of a few days ago. Remains medically clear. Today is nonbillable rounding 06/16: No change in condition, no change in plan. (2) Altered mental status: Impression: Altered mentation likely secondary to polysubstance abuse UDS on presentation positive for opiates, amphetamine, methamphetamine, cocaine Patient was held in observation, and repeat CT and MRI were performed. MRI shows diffuse white matter hyperintense signal which may represent edema. Not the typical presentation of press Her altered mentation is not affected by her blood pressure, meaning it is not improved whenever her blood pressure is within normal limits Case discussed with neurology on 05/26, who recommended LP, but stated that this is likely sequela of hypoxic event from drug use. thiamine 500 mg IM 3 times daily started on 05 26,for 3 days, now on po thiamine daily 06/06 Daughter Ina made contact with RN. I also spoke with her, at this point, her mother's condition is sub acute. No need for interventions. Ina is aware her mother needs fdc care. She is willing to assist with this, but neither she, nor her mother have a safe place to live. Qualifiers: Altered mental status type: stupor Qualified Code(s): R40.1 - Stupor (3) Pubic bone fracture: Impression: X-ray hip on 05/25 shows moderately displaced right inferior pubic ramus fracture with extension in the medial acetabular column and suspicion for extension to the pelvic ring. Case was discussed with on-call orthopedist, who reports this is nonoperative. She is full weightbearing as tolerated and will need a walker at discharge. If her mentation improves, we will order PT jesús, currently not able to particpate with PT. She has been seen 1x for PT, no rehab potentential. She is getting to the chair daily with staff assistance (4) Malnutrition: Impression: Severe protein calorie malnutrition given obvious muscle wasting, loss of subcutaneous fat, bedridden. She is eatiing 100% of meals. BMI increased from 14.9 to 15.7. This is an improvmeent. This patient's diagnosis and treatment plan was discussed this AM with attending physician as a part of multi disciplinary rounding meeting. non billable rounding Qualifiers: Malnutrition type: unspecified type Qualified Code(s): E46 - Unspecified protein-calorie malnutrition
--- NOTE | 2025-07-13 20:31 | PROVIDER PROGRESS NOTE ---
Subjective Prog Note Date Prog Note Date: 07/13/25 Subjective Subjective: no change from yesterday- in bed and not interactive Current Medications Current Medications Current Medications: Current Medications Generic Name Dose Route Start Last Admin Trade Name Falguni PRN Reason Stop Dose Admin Acetaminophen 650 mg 05/21/25 14:24 07/13/25 08:47 Acetaminophen 325 Mg Tablet PO 650 mg Q4HR PRN Administration Pain 1 to 4, or Fever Apixaban 2.5 mg 05/29/25 21:00 07/13/25 08:47 Apixaban 2.5 Mg Tablet PO 2.5 mg BID WEST Administration Calcium Carbonate/Glycine 500 mg 06/04/25 09:00 07/13/25 08:47 Calcium Carbonate Chew 500 Mg Tablet PO 500 mg DAILY WEST Administration Cetirizine HCl 10 mg 07/06/25 11:37 Cetirizine 10 Mg Tablet PO DAILY PRN Allergy Symptoms Cholecalciferol 25 mcg 06/04/25 09:00 07/13/25 08:47 Cholecalciferol 25 Mcg Tablet PO 25 mcg DAILY WEST Administration Cyclobenzaprine HCl 10 mg 06/18/25 13:19 07/08/25 06:04 Cyclobenzaprine 10 Mg Tablet PO 10 mg TID PRN Administration Spasms Docusate Sodium 250 - 500 mg 07/02/25 10:35 Docusate Sodium 250 Mg Capsule PO DAILY PRN Constipation Naloxone HCl 0.4 mg 06/13/25 22:08 Naloxone 0.4 Mg/Ml Vial IVP Q10M PRN respiratory depression Polyethylene Glycol 17 gm 07/02/25 10:34 07/13/25 08:46 Polyethylene Glycol 3350 17 Gm Packet PO 17 gm DAILY PRN Administration Constipation Multivit/Folic Acid/Iron 1 tab 05/25/25 08:00 07/13/25 08:47 Vitamin Tablet PO 1 tab DAILYWM WEST Administration Saccharomyces Boulardii 500 mg 06/25/25 17:00 07/13/25 17:01 Saccharomyces Boulardii 250 Mg Capsule PO 500 mg BIDWM WEST Administration Sodium Chloride 10 ml 05/21/25 14:24 06/18/25 00:14 Sodium Chloride Flush 0.9% 10 Ml Syringe IVP 10 ml PRN PRN Administration NEEDED PER PROVIDER ORDERS Thiamine HCl 100 mg 05/30/25 09:00 07/13/25 08:47 Thiamine 100 Mg Tablet PO 100 mg DAILY WEST Administration Zinc Oxide 113 gm 06/28/25 12:00 07/13/25 08:46 Cod Liver Oil/Zinc Oxide 113 Gm Tube TOP 1 applic PRN PRN Administration Skin Care Objective Vital Signs/Intake & Output Reviewed Vital Signs: Yes Vital Signs: Vital Signs x48h Temp Pulse Resp BP Pulse Ox 07/13/25 16:29 36.6 C 100 22 144/103 H 96 Intake & Output: Intake & Output 07/10/25 07/11/25 07/12/25 07/13/25 23:59 23:59 23:59 23:59 Intake Total 1417 / 1417 520 / 520 1800 / 1800 720 / 720 Balance 1417 / 1417 520 / 520 1800 / 1800 720 / 720 Weight (kg) 45 kg Objective General Appearance: positive No acute distress and Lethargic Eyes Bilateral: positive Normal inspection ENT: positive ENT inspection nml Neck: positive Nml inspection Respiratory: positive No respiratory distress and Breath sounds nml Cardiovascular: positive Regular rate & rhythm Abdomen: positive No distention Skin: positive Color nml, No rash and Dry Extremities: positive Nml appearance and No pedal edema Neurologic/Psychiatric: positive Other (does not interact w me today) Lab Results 06/27/25 16:37 06/27/25 16:37 Other Labs: Lab Results x24hrs 07/06/25 Range/Units 13:10 Nasal Adenovirus (PCR) NOT DETECTED Nasal B. parapertussis DNA (PCR) NOT DETECTED Nasal Coronavir 229E PCR NOT DETECTED Nasal Coronavir HKU1 PCR NOT DETECTED Nasal Coronavir NL63 PCR NOT DETECTED Nasal Coronavir OC43 PCR NOT DETECTED Nasal Enterovir/Rhinovir PCR NOT DETECTED Nasal Influenza B PCR NOT DETECTED Nasal Influenza A PCR NOT DETECTED Nasal Parainfluen 1 PCR NOT DETECTED Nasal Parainfluen 2 PCR NOT DETECTED Nasal Parainfluen 3 PCR NOT DETECTED Nasal Parainfluen 4 PCR NOT DETECTED Nasal RSV (PCR) NOT DETECTED Nasal B.pertussis DNA PCR NOT DETECTED Nasal C.pneumoniae (PCR) NOT DETECTED Rory Human Metapneumo PCR NOT DETECTED Nasal M.pneumoniae (PCR) NOT DETECTED Nasal SARS-CoV-2 (PCR) NOT DETECTED Sepsis Event Note (H) Evaluation Current Stage of Sepsis: Ruled out Assessment/Plan Problem List (1) Polysubstance abuse: Impression: She has been in the hospital since 05/13/2025 UDS on presentation was positive for opiates, amphetamine, methamphetamine, cocaine She is out of the window for any acute withdrawal. She has not had any acute changes in her mental status for at least a week. 06/13: She is having some overall tenseness and hyperactivity, likely a psychomotor side effect of her polysubstance abuse. I am starting Suboxone 8-2 mg SL daily and will monitor for effect versus toxicity 05/20: She did not tolerate her dose of Suboxone very well. She was very lethargic through most of yesterday afternoon and is still only responding to pain. Last night I gave her a dose of Narcan with minimal effect. I gave her a liter of IV fluids and sent her for CT head out of an abundance of caution which showed no acute changes. I have discontinued her Suboxone, and I am keeping her on continuous pulse ox to watch for respiratory depression. I have Narcan ordered as needed. Chest x-ray was performed as she had some desaturation requiring 2 L O2. This showed no acute findings. 06/15: Her mentation is much improved today as the Suboxone is washing out of her system. As we do not stock smaller doses of Suboxone, we will likely not pursue this any further. She is back to her mentation as of a few days ago. Remains medically clear. Today is nonbillable rounding 06/16: No change in condition, no change in plan. (2) Altered mental status: Impression: Altered mentation likely secondary to polysubstance abuse UDS on presentation positive for opiates, amphetamine, methamphetamine, cocaine Patient was held in observation, and repeat CT and MRI were performed. MRI shows diffuse white matter hyperintense signal which may represent edema. Not the typical presentation of press Her altered mentation is not affected by her blood pressure, meaning it is not improved whenever her blood pressure is within normal limits Case discussed with neurology on 05/26, who recommended LP, but stated that this is likely sequela of hypoxic event from drug use. thiamine 500 mg IM 3 times daily started on 05 26,for 3 days, now on po thiamine daily 06/06 Daughter Ina made contact with RN. I also spoke with her, at this point, her mother's condition is sub acute. No need for interventions. Ina is aware her mother needs snf care. She is willing to assist with this, but neither she, nor her mother have a safe place to live. Qualifiers: Altered mental status type: stupor Qualified Code(s): R40.1 - Stupor (3) Pubic bone fracture: Impression: X-ray hip on 05/25 shows moderately displaced right inferior pubic ramus fracture with extension in the medial acetabular column and suspicion for extension to the pelvic ring. Case was discussed with on-call orthopedist, who reports this is nonoperative. She is full weightbearing as tolerated and will need a walker at discharge. If her mentation improves, we will order PT jesús, currently not able to particpate with PT. She has been seen 1x for PT, no rehab potentential. She is getting to the chair daily with staff assistance (4) Malnutrition: Impression: Severe protein calorie malnutrition given obvious muscle wasting, loss of subcutaneous fat, bedridden. She is eatiing 100% of meals. BMI increased from 14.9 to 15.7. This is an improvmeent. This patient's diagnosis and treatment plan was discussed this AM with attending physician as a part of multi disciplinary rounding meeting. non billable rounding Qualifiers: Malnutrition type: unspecified type Qualified Code(s): E46 - Unspecified protein-calorie malnutrition
[2025-07-14] MEDS: CETIRIZINE 10 MG TABLET PO PRN (07:47)
--- NOTE | 2025-07-14 22:06 | PROVIDER PROGRESS NOTE ---
Subjective Prog Note Date Prog Note Date: 07/14/25 Subjective Subjective: Awake in bed. Says Hi, but no further conversation Current Medications Current Medications Current Medications: Current Medications Generic Name Dose Route Start Last Admin Trade Name Falguni PRN Reason Stop Dose Admin Acetaminophen 650 mg 05/21/25 14:24 07/13/25 23:31 Acetaminophen 325 Mg Tablet PO 650 mg Q4HR PRN Administration Pain 1 to 4, or Fever Apixaban 2.5 mg 05/29/25 21:00 07/14/25 20:56 Apixaban 2.5 Mg Tablet PO 2.5 mg BID WEST Administration Calcium Carbonate/Glycine 500 mg 06/04/25 09:00 07/14/25 07:47 Calcium Carbonate Chew 500 Mg Tablet PO 500 mg DAILY WEST Administration Cetirizine HCl 10 mg 07/06/25 11:37 07/14/25 07:47 Cetirizine 10 Mg Tablet PO 10 mg DAILY PRN Administration Allergy Symptoms Cholecalciferol 25 mcg 06/04/25 09:00 07/14/25 07:48 Cholecalciferol 25 Mcg Tablet PO 25 mcg DAILY WEST Administration Cyclobenzaprine HCl 10 mg 06/18/25 13:19 07/08/25 06:04 Cyclobenzaprine 10 Mg Tablet PO 10 mg TID PRN Administration Spasms Docusate Sodium 250 - 500 mg 07/02/25 10:35 Docusate Sodium 250 Mg Capsule PO DAILY PRN Constipation Naloxone HCl 0.4 mg 06/13/25 22:08 Naloxone 0.4 Mg/Ml Vial IVP Q10M PRN respiratory depression Polyethylene Glycol 17 gm 07/02/25 10:34 07/14/25 07:46 Polyethylene Glycol 3350 17 Gm Packet PO 17 gm DAILY PRN Administration Constipation Multivit/Folic Acid/Iron 1 tab 05/25/25 08:00 07/14/25 07:47 Vitamin Tablet PO 1 tab DAILYWM WEST Administration Saccharomyces Boulardii 500 mg 06/25/25 17:00 07/14/25 16:32 Saccharomyces Boulardii 250 Mg Capsule PO 500 mg BIDWM WEST Administration Sodium Chloride 10 ml 05/21/25 14:24 06/18/25 00:14 Sodium Chloride Flush 0.9% 10 Ml Syringe IVP 10 ml PRN PRN Administration NEEDED PER PROVIDER ORDERS Thiamine HCl 100 mg 05/30/25 09:00 07/14/25 07:47 Thiamine 100 Mg Tablet PO 100 mg DAILY WEST Administration Zinc Oxide 113 gm 06/28/25 12:00 07/14/25 07:48 Cod Liver Oil/Zinc Oxide 113 Gm Tube TOP 1 applic PRN PRN Administration Skin Care Objective Vital Signs/Intake & Output Reviewed Vital Signs: Yes Vital Signs: Vital Signs x48h Temp Pulse Resp BP Pulse Ox 07/14/25 15:30 36.6 C 98 18 131/92 H 97 Intake & Output: Intake & Output 07/11/25 07/12/25 07/13/25 07/14/25 23:59 23:59 23:59 23:59 Intake Total 520 / 520 1800 / 1800 1170 / 1170 870 / 870 Balance 520 / 520 1800 / 1800 1170 / 1170 870 / 870 Weight (kg) 45 kg Objective General Appearance: positive No acute distress and Lethargic Eyes Bilateral: positive Normal inspection ENT: positive ENT inspection nml Neck: positive Nml inspection Respiratory: positive No respiratory distress and Breath sounds nml Cardiovascular: positive Regular rate & rhythm Abdomen: positive No distention Skin: positive Color nml, No rash and Dry Extremities: positive Nml appearance and No pedal edema Neurologic/Psychiatric: positive Other (smiles and says hi, otherwise not verbal. ) Lab Results 06/27/25 16:37 06/27/25 16:37 Other Labs: Lab Results x24hrs 07/06/25 Range/Units 13:10 Nasal Adenovirus (PCR) NOT DETECTED Nasal B. parapertussis DNA (PCR) NOT DETECTED Nasal Coronavir 229E PCR NOT DETECTED Nasal Coronavir HKU1 PCR NOT DETECTED Nasal Coronavir NL63 PCR NOT DETECTED Nasal Coronavir OC43 PCR NOT DETECTED Nasal Enterovir/Rhinovir PCR NOT DETECTED Nasal Influenza B PCR NOT DETECTED Nasal Influenza A PCR NOT DETECTED Nasal Parainfluen 1 PCR NOT DETECTED Nasal Parainfluen 2 PCR NOT DETECTED Nasal Parainfluen 3 PCR NOT DETECTED Nasal Parainfluen 4 PCR NOT DETECTED Nasal RSV (PCR) NOT DETECTED Nasal B.pertussis DNA PCR NOT DETECTED Nasal C.pneumoniae (PCR) NOT DETECTED Rory Human Metapneumo PCR NOT DETECTED Nasal M.pneumoniae (PCR) NOT DETECTED Nasal SARS-CoV-2 (PCR) NOT DETECTED Sepsis Event Note (H) Evaluation Current Stage of Sepsis: Ruled out Assessment/Plan Problem List (1) Polysubstance abuse: Impression: She has been in the hospital since 05/13/2025 UDS on presentation was positive for opiates, amphetamine, methamphetamine, cocaine She is out of the window for any acute withdrawal. She has not had any acute changes in her mental status for at least a week. 06/13: She is having some overall tenseness and hyperactivity, likely a psychomotor side effect of her polysubstance abuse. I am starting Suboxone 8-2 mg SL daily and will monitor for effect versus toxicity 05/20 7: She did not tolerate her dose of Suboxone very well. She was very lethargic through most of yesterday afternoon and is still only responding to pain. Last night I gave her a dose of Narcan with minimal effect. I gave her a liter of IV fluids and sent her for CT head out of an abundance of caution which showed no acute changes. I have discontinued her Suboxone, and I am keeping her on continuous pulse ox to watch for respiratory depression. I have Narcan ordered as needed. Chest x-ray was performed as she had some desaturation requiring 2 L O2. This showed no acute findings. 06/15: Her mentation is much improved today as the Suboxone is washing out of her system. As we do not stock smaller doses of Suboxone, we will likely not pursue this any further. She is back to her mentation as of a few days ago. Remains medically clear. Today is nonbillable rounding 06/16: No change in condition, no change in plan. (2) Altered mental status: Impression: Altered mentation likely secondary to polysubstance abuse UDS on presentation positive for opiates, amphetamine, methamphetamine, cocaine Patient was held in observation, and repeat CT and MRI were performed. MRI shows diffuse white matter hyperintense signal which may represent edema. Not the typical presentation of press Her altered mentation is not affected by her blood pressure, meaning it is not improved whenever her blood pressure is within normal limits Case discussed with neurology on 05/26, who recommended LP, but stated that this is likely sequela of hypoxic event from drug use. thiamine 500 mg IM 3 times daily started on 05 26,for 3 days, now on po thiamine daily 06/06 Daughter Ina made contact with RN. I also spoke with her, at this point, her mother's condition is sub acute. No need for interventions. 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 She is willing to assist with this, but neither she, nor her mother have a safe place to live. Qualifiers: Altered mental status type: stupor Qualified Code(s): R40.1 - Stupor (3) Pubic bone fracture: Impression: X-ray hip on 05/25 shows moderately displaced right inferior pubic ramus fracture with extension in the medial acetabular column and suspicion for extension to the pelvic ring. Case was discussed with on-call orthopedist, who reports this is nonoperative. She is full weightbearing as tolerated and will need a walker at discharge. If her mentation improves, we will order PT jesús, currently not able to particpate with PT. She has been seen 1x for PT, no rehab potentential. She is getting to the chair daily with staff assistance (4) Malnutrition: Impression: Severe protein calorie malnutrition given obvious muscle wasting, loss of subcutaneous fat, bedridden. She is eatiing 100% of meals. BMI increased from 14.9 to 15.7. This is an improvmeent. This patient's diagnosis and treatment plan was discussed this AM with attending physician as a part of multi disciplinary rounding meeting. non billable rounding Qualifiers: Malnutrition type: unspecified type Qualified Code(s): E46 - Unspecified protein-calorie malnutrition
--- NOTE | 2025-07-15 12:10 | PROVIDER PROGRESS NOTE ---
Subjective Prog Note Date Prog Note Date: 07/15/25 Subjective Pt reports feeling: No change Current Medications Current Medications Current Medications: Current Medications Generic Name Dose Route Start Last Admin Trade Name Falguni PRN Reason Stop Dose Admin Acetaminophen 650 mg 05/21/25 14:24 07/13/25 23:31 Acetaminophen 325 Mg Tablet PO 650 mg Q4HR PRN Administration Pain 1 to 4, or Fever Apixaban 2.5 mg 05/29/25 21:00 07/15/25 09:23 Apixaban 2.5 Mg Tablet PO 2.5 mg BID WEST Administration Calcium Carbonate/Glycine 500 mg 06/04/25 09:00 07/15/25 09:23 Calcium Carbonate Chew 500 Mg Tablet PO 500 mg DAILY WEST Administration Cetirizine HCl 10 mg 07/06/25 11:37 07/14/25 07:47 Cetirizine 10 Mg Tablet PO 10 mg DAILY PRN Administration Allergy Symptoms Cholecalciferol 25 mcg 06/04/25 09:00 07/15/25 09:23 Cholecalciferol 25 Mcg Tablet PO 25 mcg DAILY WEST Administration Cyclobenzaprine HCl 10 mg 06/18/25 13:19 07/08/25 06:04 Cyclobenzaprine 10 Mg Tablet PO 10 mg TID PRN Administration Spasms Docusate Sodium 250 - 500 mg 07/02/25 10:35 Docusate Sodium 250 Mg Capsule PO DAILY PRN Constipation Naloxone HCl 0.4 mg 06/13/25 22:08 Naloxone 0.4 Mg/Ml Vial IVP Q10M PRN respiratory depression Polyethylene Glycol 17 gm 07/02/25 10:34 07/14/25 07:46 Polyethylene Glycol 3350 17 Gm Packet PO 17 gm DAILY PRN Administration Constipation Multivit/Folic Acid/Iron 1 tab 05/25/25 08:00 07/15/25 09:23 Vitamin Tablet PO 1 tab DAILYWM WEST Administration Saccharomyces Boulardii 500 mg 06/25/25 17:00 07/15/25 09:23 Saccharomyces Boulardii 250 Mg Capsule PO 500 mg BIDWM WEST Administration Sodium Chloride 10 ml 05/21/25 14:24 06/18/25 00:14 Sodium Chloride Flush 0.9% 10 Ml Syringe IVP 10 ml PRN PRN Administration NEEDED PER PROVIDER ORDERS Thiamine HCl 100 mg 05/30/25 09:00 07/15/25 09:23 Thiamine 100 Mg Tablet PO 100 mg DAILY WEST Administration Zinc Oxide 113 gm 06/28/25 12:00 07/14/25 23:48 Cod Liver Oil/Zinc Oxide 113 Gm Tube TOP 1 applic PRN PRN Administration Skin Care Objective Vital Signs/Intake & Output Reviewed Vital Signs: Yes Vital Signs: Vital Signs x48h Temp Pulse Resp BP Pulse Ox 07/15/25 09:15 36.6 C 92 16 156/94 H 100 Intake & Output: Intake & Output 07/12/25 07/13/25 07/14/25 07/15/25 23:59 23:59 23:59 23:59 Intake Total 1800 / 1800 1170 / 1170 870 / 870 340 / 340 Balance 1800 / 1800 1170 / 1170 870 / 870 340 / 340 Objective General Appearance: positive No acute distress Eyes Bilateral: positive Normal inspection ENT: positive ENT inspection nml Neck: positive Nml inspection Respiratory: positive No respiratory distress and Breath sounds nml Cardiovascular: positive Regular rate & rhythm Abdomen: positive No distention Skin: positive Color nml, No rash and Dry Extremities: positive Nml appearance and No pedal edema Neurologic/Psychiatric: positive Other (smiles and says hi, otherwise not verbal. ) Lab Results 06/27/25 16:37 06/27/25 16:37 Other Labs: Lab Results x24hrs 07/06/25 Range/Units 13:10 Nasal Adenovirus (PCR) NOT DETECTED Nasal B. parapertussis DNA (PCR) NOT DETECTED Nasal Coronavir 229E PCR NOT DETECTED Nasal Coronavir HKU1 PCR NOT DETECTED Nasal Coronavir NL63 PCR NOT DETECTED Nasal Coronavir OC43 PCR NOT DETECTED Nasal Enterovir/Rhinovir PCR NOT DETECTED Nasal Influenza B PCR NOT DETECTED Nasal Influenza A PCR NOT DETECTED Nasal Parainfluen 1 PCR NOT DETECTED Nasal Parainfluen 2 PCR NOT DETECTED Nasal Parainfluen 3 PCR NOT DETECTED Nasal Parainfluen 4 PCR NOT DETECTED Nasal RSV (PCR) NOT DETECTED Nasal B.pertussis DNA PCR NOT DETECTED Nasal C.pneumoniae (PCR) NOT DETECTED Rory Human Metapneumo PCR NOT DETECTED Nasal M.pneumoniae (PCR) NOT DETECTED Nasal SARS-CoV-2 (PCR) NOT DETECTED Sepsis Event Note (H) Evaluation Current Stage of Sepsis: Ruled out Assessment/Plan Problem List (1) Polysubstance abuse: Impression: She has been in the hospital since 05/13/2025 UDS on presentation was positive for opiates, amphetamine, methamphetamine, cocaine She is out of the window for any acute withdrawal. She has not had any acute changes in her mental status for at least a week. 06/13: She is having some overall tenseness and hyperactivity, likely a psychomotor side effect of her polysubstance abuse. I am starting Suboxone 8-2 mg SL daily and will monitor for effect versus toxicity 05/20: She did not tolerate her dose of Suboxone very well. She was very lethargic through most of yesterday afternoon and is still only responding to pain. Last night I gave her a dose of Narcan with minimal effect. I gave her a liter of IV fluids and sent her for CT head out of an abundance of caution which showed no acute changes. I have discontinued her Suboxone, and I am keeping her on continuous pulse ox to watch for respiratory depression. I have Narcan ordered as needed. Chest x-ray was performed as she had some desaturation requiring 2 L O2. This showed no acute findings. 06/15: Her mentation is much improved today as the Suboxone is washing out of her system. As we do not stock smaller doses of Suboxone, we will likely not pursue this any further. She is back to her mentation as of a few days ago. Remains medically clear. Today is nonbillable rounding 06/16: No change in condition, no change in plan. (2) Altered mental status: Impression: Altered mentation likely secondary to polysubstance abuse UDS on presentation positive for opiates, amphetamine, methamphetamine, cocaine Patient was held in observation, and repeat CT and MRI were performed. MRI shows diffuse white matter hyperintense signal which may represent edema. Not the typical presentation of press Her altered mentation is not affected by her blood pressure, meaning it is not improved whenever her blood pressure is within normal limits Case discussed with neurology on 05/26, who recommended LP, but stated that this is likely sequela of hypoxic event from drug use. thiamine 500 mg IM 3 times daily started on 05 26,for 3 days, now on po thiamine daily 06/06 Daughter Ina made contact with RN. I also spoke with her, at this point, her mother's condition is sub acute. No need for interventions. 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 She is willing to assist with this, but neither she, nor her mother have a safe place to live. Qualifiers: Altered mental status type: stupor Qualified Code(s): R40.1 - Stupor (3) Pubic bone fracture: Impression: X-ray hip on 05/25 shows moderately displaced right inferior pubic ramus fracture with extension in the medial acetabular column and suspicion for extension to the pelvic ring. Case was discussed with on-call orthopedist, who reports this is nonoperative. She is full weightbearing as tolerated and will need a walker at discharge. If her mentation improves, we will order PT eval, currently not able to particpate with PT. She has been seen 1x for PT, no rehab potentential. She is getting to the chair daily with staff assistance (4) Malnutrition: Impression: Severe protein calorie malnutrition given obvious muscle wasting, loss of subcutaneous fat, bedridden. She is eatiing 100% of meals. BMI increased from 14.9 to 15.7. This is an improvmeent. This patient's diagnosis and treatment plan was discussed this AM with attending physician as a part of multi disciplinary rounding meeting. non billable rounding Qualifiers: Malnutrition type: unspecified type Qualified Code(s): E46 - Unspecified protein-calorie malnutrition
--- NOTE | 2025-07-16 11:51 | PROVIDER PROGRESS NOTE ---
Subjective Prog Note Date Prog Note Date: 07/16/25 Subjective Pt reports feeling: No change Current Medications Current Medications Current Medications: Current Medications Generic Name Dose Route Start Last Admin Trade Name Falguni PRN Reason Stop Dose Admin Acetaminophen 650 mg 05/21/25 14:24 07/15/25 22:33 Acetaminophen 325 Mg Tablet PO 650 mg Q4HR PRN Administration Pain 1 to 4, or Fever Apixaban 2.5 mg 05/29/25 21:00 07/16/25 09:18 Apixaban 2.5 Mg Tablet PO 2.5 mg BID WEST Administration Calcium Carbonate/Glycine 500 mg 06/04/25 09:00 07/16/25 09:18 Calcium Carbonate Chew 500 Mg Tablet PO 500 mg DAILY WEST Administration Cetirizine HCl 10 mg 07/06/25 11:37 07/14/25 07:47 Cetirizine 10 Mg Tablet PO 10 mg DAILY PRN Administration Allergy Symptoms Cholecalciferol 25 mcg 06/04/25 09:00 07/16/25 09:19 Cholecalciferol 25 Mcg Tablet PO 25 mcg DAILY WEST Administration Cyclobenzaprine HCl 10 mg 06/18/25 13:19 07/08/25 06:04 Cyclobenzaprine 10 Mg Tablet PO 10 mg TID PRN Administration Spasms Docusate Sodium 250 - 500 mg 07/02/25 10:35 Docusate Sodium 250 Mg Capsule PO DAILY PRN Constipation Naloxone HCl 0.4 mg 06/13/25 22:08 Naloxone 0.4 Mg/Ml Vial IVP Q10M PRN respiratory depression Polyethylene Glycol 17 gm 07/02/25 10:34 07/14/25 07:46 Polyethylene Glycol 3350 17 Gm Packet PO 17 gm DAILY PRN Administration Constipation Multivit/Folic Acid/Iron 1 tab 05/25/25 08:00 07/16/25 09:18 Vitamin Tablet PO 1 tab DAILYWM WEST Administration Saccharomyces Boulardii 500 mg 06/25/25 17:00 07/16/25 09:18 Saccharomyces Boulardii 250 Mg Capsule PO 500 mg BIDWM WEST Administration Sodium Chloride 10 ml 05/21/25 14:24 06/18/25 00:14 Sodium Chloride Flush 0.9% 10 Ml Syringe IVP 10 ml PRN PRN Administration NEEDED PER PROVIDER ORDERS Thiamine HCl 100 mg 05/30/25 09:00 07/16/25 09:19 Thiamine 100 Mg Tablet PO 100 mg DAILY WEST Administration Zinc Oxide 113 gm 06/28/25 12:00 07/14/25 23:48 Cod Liver Oil/Zinc Oxide 113 Gm Tube TOP 1 applic PRN PRN Administration Skin Care Objective Vital Signs/Intake & Output Reviewed Vital Signs: Yes Vital Signs: Vital Signs x48h Temp Pulse Resp BP Pulse Ox 07/16/25 08:31 36.4 C L 108 H 18 167/100 H 98 Intake & Output: Intake & Output 07/13/25 07/14/25 07/15/25 07/16/25 23:59 23:59 23:59 23:59 Intake Total 1170 / 1170 870 / 870 1210 / 1210 360 / 360 Balance 1170 / 1170 870 / 870 1210 / 1210 360 / 360 Objective General Appearance: positive No acute distress Eyes Bilateral: positive Normal inspection ENT: positive ENT inspection nml Neck: positive Nml inspection Respiratory: positive No respiratory distress and Breath sounds nml Cardiovascular: positive Regular rate & rhythm Abdomen: positive No distention Skin: positive Color nml, No rash and Dry Extremities: positive Nml appearance and No pedal edema Neurologic/Psychiatric: positive Other (smiles and says hi, otherwise not verbal. ) Lab Results 06/27/25 16:37 06/27/25 16:37 Other Labs: Lab Results x24hrs 07/06/25 Range/Units 13:10 Nasal Adenovirus (PCR) NOT DETECTED Nasal B. parapertussis DNA (PCR) NOT DETECTED Nasal Coronavir 229E PCR NOT DETECTED Nasal Coronavir HKU1 PCR NOT DETECTED Nasal Coronavir NL63 PCR NOT DETECTED Nasal Coronavir OC43 PCR NOT DETECTED Nasal Enterovir/Rhinovir PCR NOT DETECTED Nasal Influenza B PCR NOT DETECTED Nasal Influenza A PCR NOT DETECTED Nasal Parainfluen 1 PCR NOT DETECTED Nasal Parainfluen 2 PCR NOT DETECTED Nasal Parainfluen 3 PCR NOT DETECTED Nasal Parainfluen 4 PCR NOT DETECTED Nasal RSV (PCR) NOT DETECTED Nasal B.pertussis DNA PCR NOT DETECTED Nasal C.pneumoniae (PCR) NOT DETECTED Rory Human Metapneumo PCR NOT DETECTED Nasal M.pneumoniae (PCR) NOT DETECTED Nasal SARS-CoV-2 (PCR) NOT DETECTED Sepsis Event Note (H) Evaluation Current Stage of Sepsis: Ruled out Assessment/Plan Problem List (1) Polysubstance abuse: Impression: She has been in the hospital since 05/13/2025 UDS on presentation was positive for opiates, amphetamine, methamphetamine, cocaine She is out of the window for any acute withdrawal. She has not had any acute changes in her mental status for at least a week. 06/13: She is having some overall tenseness and hyperactivity, likely a psychomotor side effect of her polysubstance abuse. I am starting Suboxone 8-2 mg SL daily and will monitor for effect versus toxicity 05/20: She did not tolerate her dose of Suboxone very well. She was very lethargic through most of yesterday afternoon and is still only responding to pain. Last night I gave her a dose of Narcan with minimal effect. I gave her a liter of IV fluids and sent her for CT head out of an abundance of caution which showed no acute changes. I have discontinued her Suboxone, and I am keeping her on continuous pulse ox to watch for respiratory depression. I have Narcan ordered as needed. Chest x-ray was performed as she had some desaturation requiring 2 L O2. This showed no acute findings. 06/15: Her mentation is much improved today as the Suboxone is washing out of her system. As we do not stock smaller doses of Suboxone, we will likely not pursue this any further. She is back to her mentation as of a few days ago. Remains medically clear. Today is nonbillable rounding 06/16: No change in condition, no change in plan. (2) Altered mental status: Impression: Altered mentation likely secondary to polysubstance abuse UDS on presentation positive for opiates, amphetamine, methamphetamine, cocaine Patient was held in observation, and repeat CT and MRI were performed. MRI shows diffuse white matter hyperintense signal which may represent edema. Not the typical presentation of press Her altered mentation is not affected by her blood pressure, meaning it is not improved whenever her blood pressure is within normal limits Case discussed with neurology on 05/26, who recommended LP, but stated that this is likely sequela of hypoxic event from drug use. thiamine 500 mg IM 3 times daily started on 05 26,for 3 days, now on po thiamine daily 06/06 Daughter Ina made contact with RN. I also spoke with her, at this point, her mother's condition is sub acute. No need for interventions. Ina is aware her mother needs [facility] care. She is willing to assist with this, but neither she, nor her mother have a safe place to live. Qualifiers: Altered mental status type: stupor Qualified Code(s): R40.1 - Stupor (3) Pubic bone fracture: Impression: X-ray hip on 05/25 shows moderately displaced right inferior pubic ramus fracture with extension in the medial acetabular column and suspicion for extension to the pelvic ring. Case was discussed with on-call orthopedist, who reports this is nonoperative. She is full weightbearing as tolerated and will need a walker at discharge. If her mentation improves, we will order PT jesús, currently not able to particpate with PT. She has been seen 1x for PT, no rehab potentential. She is getting to the chair daily with staff assistance (4) Malnutrition: Impression: Severe protein calorie malnutrition given obvious muscle wasting, loss of subcutaneous fat, bedridden. She is eatiing 100% of meals. BMI increased from 14.9 to 15.7. This is an improvmeent. This patient's diagnosis and treatment plan was discussed this AM with attending physician as a part of multi disciplinary rounding meeting. non billable rounding Qualifiers: Malnutrition type: unspecified type Qualified Code(s): E46 - Unspecified protein-calorie malnutrition
--- NOTE | 2025-07-17 12:32 | PROVIDER PROGRESS NOTE ---
Subjective Prog Note Date Prog Note Date: 07/17/25 Subjective Pt reports feeling: No change Current Medications Current Medications Current Medications: Current Medications Generic Name Dose Route Start Last Admin Trade Name Falguni PRN Reason Stop Dose Admin Acetaminophen 650 mg 05/21/25 14:24 07/15/25 22:33 Acetaminophen 325 Mg Tablet PO 650 mg Q4HR PRN Administration Pain 1 to 4, or Fever Apixaban 2.5 mg 05/29/25 21:00 07/17/25 08:09 Apixaban 2.5 Mg Tablet PO 2.5 mg BID WEST Administration Calcium Carbonate/Glycine 500 mg 06/04/25 09:00 07/17/25 08:09 Calcium Carbonate Chew 500 Mg Tablet PO 500 mg DAILY WEST Administration Cetirizine HCl 10 mg 07/06/25 11:37 07/14/25 07:47 Cetirizine 10 Mg Tablet PO 10 mg DAILY PRN Administration Allergy Symptoms Cholecalciferol 25 mcg 06/04/25 09:00 07/17/25 08:09 Cholecalciferol 25 Mcg Tablet PO 25 mcg DAILY WEST Administration Cyclobenzaprine HCl 10 mg 06/18/25 13:19 07/08/25 06:04 Cyclobenzaprine 10 Mg Tablet PO 10 mg TID PRN Administration Spasms Docusate Sodium 250 - 500 mg 07/02/25 10:35 Docusate Sodium 250 Mg Capsule PO DAILY PRN Constipation Naloxone HCl 0.4 mg 06/13/25 22:08 Naloxone 0.4 Mg/Ml Vial IVP Q10M PRN respiratory depression Polyethylene Glycol 17 gm 07/02/25 10:34 07/14/25 07:46 Polyethylene Glycol 3350 17 Gm Packet PO 17 gm DAILY PRN Administration Constipation Multivit/Folic Acid/Iron 1 tab 05/25/25 08:00 07/17/25 08:10 Vitamin Tablet PO 1 tab DAILYWM WEST Administration Saccharomyces Boulardii 500 mg 06/25/25 17:00 07/17/25 08:09 Saccharomyces Boulardii 250 Mg Capsule PO 500 mg BIDWM WEST Administration Sodium Chloride 10 ml 05/21/25 14:24 06/18/25 00:14 Sodium Chloride Flush 0.9% 10 Ml Syringe IVP 10 ml PRN PRN Administration NEEDED PER PROVIDER ORDERS Thiamine HCl 100 mg 05/30/25 09:00 07/17/25 08:10 Thiamine 100 Mg Tablet PO 100 mg DAILY WEST Administration Zinc Oxide 113 gm 06/28/25 12:00 07/14/25 23:48 Cod Liver Oil/Zinc Oxide 113 Gm Tube TOP 1 applic PRN PRN Administration Skin Care Objective Vital Signs/Intake & Output Reviewed Vital Signs: Yes Vital Signs: Vital Signs x48h Temp Pulse Resp BP Pulse Ox 07/17/25 07:23 36.6 C 99 20 138/91 H 99 Intake & Output: Intake & Output 07/14/25 07/15/25 07/16/25 07/17/25 23:59 23:59 23:59 23:59 Intake Total 870 / 870 1210 / 1210 1080 / 1080 360 / 360 Balance 870 / 870 1210 / 1210 1080 / 1080 360 / 360 Objective General Appearance: positive No acute distress Eyes Bilateral: positive Normal inspection ENT: positive ENT inspection nml Neck: positive Nml inspection Respiratory: positive No respiratory distress and Breath sounds nml Cardiovascular: positive Regular rate & rhythm Abdomen: positive No distention Skin: positive Color nml, No rash and Dry Extremities: positive Nml appearance and No pedal edema Neurologic/Psychiatric: positive Other (smiles and says hi, otherwise not verbal. ) Lab Results 06/27/25 16:37 06/27/25 16:37 Other Labs: Lab Results x24hrs 07/06/25 Range/Units 13:10 Nasal Adenovirus (PCR) NOT DETECTED Nasal B. parapertussis DNA (PCR) NOT DETECTED Nasal Coronavir 229E PCR NOT DETECTED Nasal Coronavir HKU1 PCR NOT DETECTED Nasal Coronavir NL63 PCR NOT DETECTED Nasal Coronavir OC43 PCR NOT DETECTED Nasal Enterovir/Rhinovir PCR NOT DETECTED Nasal Influenza B PCR NOT DETECTED Nasal Influenza A PCR NOT DETECTED Nasal Parainfluen 1 PCR NOT DETECTED Nasal Parainfluen 2 PCR NOT DETECTED Nasal Parainfluen 3 PCR NOT DETECTED Nasal Parainfluen 4 PCR NOT DETECTED Nasal RSV (PCR) NOT DETECTED Nasal B.pertussis DNA PCR NOT DETECTED Nasal C.pneumoniae (PCR) NOT DETECTED Rory Human Metapneumo PCR NOT DETECTED Nasal M.pneumoniae (PCR) NOT DETECTED Nasal SARS-CoV-2 (PCR) NOT DETECTED Sepsis Event Note (H) Evaluation Current Stage of Sepsis: Ruled out Assessment/Plan Problem List (1) Polysubstance abuse: Impression: She has been in the hospital since 05/13/2025 UDS on presentation was positive for opiates, amphetamine, methamphetamine, cocaine She is out of the window for any acute withdrawal. She has not had any acute changes in her mental status for at least a week. 06/13: She is having some overall tenseness and hyperactivity, likely a psychomotor side effect of her polysubstance abuse. I am starting Suboxone 8-2 mg SL daily and will monitor for effect versus toxicity 05/20: She did not tolerate her dose of Suboxone very well. She was very lethargic through most of yesterday afternoon and is still only responding to pain. Last night I gave her a dose of Narcan with minimal effect. I gave her a liter of IV fluids and sent her for CT head out of an abundance of caution which showed no acute changes. I have discontinued her Suboxone, and I am keeping her on continuous pulse ox to watch for respiratory depression. I have Narcan ordered as needed. Chest x-ray was performed as she had some desaturation requiring 2 L O2. This showed no acute findings. 06/15: Her mentation is much improved today as the Suboxone is washing out of her system. As we do not stock smaller doses of Suboxone, we will likely not pursue this any further. She is back to her mentation as of a few days ago. Remains medically clear. Today is nonbillable rounding 06/16: No change in condition, no change in plan. (2) Altered mental status: Impression: Altered mentation likely secondary to polysubstance abuse UDS on presentation positive for opiates, amphetamine, methamphetamine, cocaine Patient was held in observation, and repeat CT and MRI were performed. MRI shows diffuse white matter hyperintense signal which may represent edema. Not the typical presentation of press Her altered mentation is not affected by her blood pressure, meaning it is not improved whenever her blood pressure is within normal limits Case discussed with neurology on 05/26, who recommended LP, but stated that this is likely sequela of hypoxic event from drug use. thiamine 500 mg IM 3 times daily started on 05 26,for 3 days, now on po thiamine daily 06/06 Daughter Ina made contact with RN. I also spoke with her, at this point, her mother's condition is sub acute. No need for interventions. Ina is aware her mother needs exterminator helper care. She is willing to assist with this, but neither she, nor her mother have a safe place to live. Qualifiers: Altered mental status type: stupor Qualified Code(s): R40.1 - Stupor (3) Pubic bone fracture: Impression: X-ray hip on 05/25 shows moderately displaced right inferior pubic ramus fracture with extension in the medial acetabular column and suspicion for extension to the pelvic ring. Case was discussed with on-call orthopedist, who reports this is nonoperative. She is full weightbearing as tolerated and will need a walker at discharge. If her mentation improves, we will order PT eval, currently not able to particpate with PT. She has been seen 1x for PT, no rehab potentential. She is getting to the chair daily with staff assistance (4) Malnutrition: Impression: Severe protein calorie malnutrition given obvious muscle wasting, loss of subcutaneous fat, bedridden. She is eatiing 100% of meals. BMI increased from 14.9 to 15.7. This is an improvmeent. This patient's diagnosis and treatment plan was discussed this AM with attending physician as a part of multi disciplinary rounding meeting. non billable rounding Qualifiers: Malnutrition type: unspecified type Qualified Code(s): E46 - Unspecified protein-calorie malnutrition
--- NOTE | 2025-07-18 15:28 | PROVIDER PROGRESS NOTE ---
Subjective Prog Note Date Prog Note Date: 07/18/25 Subjective Pt reports feeling: No change Current Medications Current Medications Current Medications: Current Medications Generic Name Dose Route Start Last Admin Trade Name Falguni PRN Reason Stop Dose Admin Acetaminophen 650 mg 05/21/25 14:24 07/15/25 22:33 Acetaminophen 325 Mg Tablet PO 650 mg Q4HR PRN Administration Pain 1 to 4, or Fever Apixaban 2.5 mg 05/29/25 21:00 07/18/25 08:11 Apixaban 2.5 Mg Tablet PO 2.5 mg BID WEST Administration Calcium Carbonate/Glycine 500 mg 06/04/25 09:00 07/18/25 08:11 Calcium Carbonate Chew 500 Mg Tablet PO 500 mg DAILY WEST Administration Cetirizine HCl 10 mg 07/06/25 11:37 07/14/25 07:47 Cetirizine 10 Mg Tablet PO 10 mg DAILY PRN Administration Allergy Symptoms Cholecalciferol 25 mcg 06/04/25 09:00 07/18/25 08:11 Cholecalciferol 25 Mcg Tablet PO 25 mcg DAILY WEST Administration Cyclobenzaprine HCl 10 mg 06/18/25 13:19 07/08/25 06:04 Cyclobenzaprine 10 Mg Tablet PO 10 mg TID PRN Administration Spasms Docusate Sodium 250 - 500 mg 07/02/25 10:35 Docusate Sodium 250 Mg Capsule PO DAILY PRN Constipation Naloxone HCl 0.4 mg 06/13/25 22:08 Naloxone 0.4 Mg/Ml Vial IVP Q10M PRN respiratory depression Polyethylene Glycol 17 gm 07/02/25 10:34 07/14/25 07:46 Polyethylene Glycol 3350 17 Gm Packet PO 17 gm DAILY PRN Administration Constipation Multivit/Folic Acid/Iron 1 tab 05/25/25 08:00 07/18/25 08:11 Vitamin Tablet PO 1 tab DAILYWM WEST Administration Saccharomyces Boulardii 500 mg 06/25/25 17:00 07/18/25 08:11 Saccharomyces Boulardii 250 Mg Capsule PO 500 mg BIDWM WEST Administration Sodium Chloride 10 ml 05/21/25 14:24 06/18/25 00:14 Sodium Chloride Flush 0.9% 10 Ml Syringe IVP 10 ml PRN PRN Administration NEEDED PER PROVIDER ORDERS Thiamine HCl 100 mg 05/30/25 09:00 07/18/25 08:11 Thiamine 100 Mg Tablet PO 100 mg DAILY WEST Administration Zinc Oxide 113 gm 06/28/25 12:00 07/14/25 23:48 Cod Liver Oil/Zinc Oxide 113 Gm Tube TOP 1 applic PRN PRN Administration Skin Care Objective Vital Signs/Intake & Output Reviewed Vital Signs: Yes Vital Signs: Vital Signs x48h Temp Pulse Resp BP Pulse Ox 07/17/25 07:23 36.6 C 99 20 138/91 H 99 Intake & Output: Intake & Output 07/15/25 07/16/25 07/17/25 07/18/25 23:59 23:59 23:59 23:59 Intake Total 1210 / 1210 1080 / 1080 1290 / 1290 360 / 360 Balance 1210 / 1210 1080 / 1080 1290 / 1290 360 / 360 Objective General Appearance: positive No acute distress Eyes Bilateral: positive Normal inspection ENT: positive ENT inspection nml Neck: positive Nml inspection Respiratory: positive No respiratory distress and Breath sounds nml Cardiovascular: positive Regular rate & rhythm Abdomen: positive No distention Skin: positive Color nml, No rash and Dry Extremities: positive Nml appearance and No pedal edema Neurologic/Psychiatric: positive Other (smiles and says hi, otherwise not verbal. ) Lab Results 06/27/25 16:37 06/27/25 16:37 Other Labs: Lab Results x24hrs 07/06/25 Range/Units 13:10 Nasal Adenovirus (PCR) NOT DETECTED Nasal B. parapertussis DNA (PCR) NOT DETECTED Nasal Coronavir 229E PCR NOT DETECTED Nasal Coronavir HKU1 PCR NOT DETECTED Nasal Coronavir NL63 PCR NOT DETECTED Nasal Coronavir OC43 PCR NOT DETECTED Nasal Enterovir/Rhinovir PCR NOT DETECTED Nasal Influenza B PCR NOT DETECTED Nasal Influenza A PCR NOT DETECTED Nasal Parainfluen 1 PCR NOT DETECTED Nasal Parainfluen 2 PCR NOT DETECTED Nasal Parainfluen 3 PCR NOT DETECTED Nasal Parainfluen 4 PCR NOT DETECTED Nasal RSV (PCR) NOT DETECTED Nasal B.pertussis DNA PCR NOT DETECTED Nasal C.pneumoniae (PCR) NOT DETECTED Rory Human Metapneumo PCR NOT DETECTED Nasal M.pneumoniae (PCR) NOT DETECTED Nasal SARS-CoV-2 (PCR) NOT DETECTED Sepsis Event Note (H) Evaluation Current Stage of Sepsis: Ruled out Assessment/Plan Problem List (1) Polysubstance abuse: Impression: She has been in the hospital since 05/13/2025 UDS on presentation was positive for opiates, amphetamine, methamphetamine, cocaine She is out of the window for any acute withdrawal. She has not had any acute changes in her mental status for at least a week. 06/13: She is having some overall tenseness and hyperactivity, likely a psychomotor side effect of her polysubstance abuse. I am starting Suboxone 8-2 mg SL daily and will monitor for effect versus toxicity 05/20: She did not tolerate her dose of Suboxone very well. She was very lethargic through most of yesterday afternoon and is still only responding to pain. Last night I gave her a dose of Narcan with minimal effect. I gave her a liter of IV fluids and sent her for CT head out of an abundance of caution which showed no acute changes. I have discontinued her Suboxone, and I am keeping her on continuous pulse ox to watch for respiratory depression. I have Narcan ordered as needed. Chest x-ray was performed as she had some desaturation requiring 2 L O2. This showed no acute findings. 06/15: Her mentation is much improved today as the Suboxone is washing out of her system. As we do not stock smaller doses of Suboxone, we will likely not pursue this any further. She is back to her mentation as of a few days ago. Remains medically clear. Today is nonbillable rounding 06/16: No change in condition, no change in plan. (2) Altered mental status: Impression: Altered mentation likely secondary to polysubstance abuse UDS on presentation positive for opiates, amphetamine, methamphetamine, cocaine Patient was held in observation, and repeat CT and MRI were performed. MRI shows diffuse white matter hyperintense signal which may represent edema. Not the typical presentation of press Her altered mentation is not affected by her blood pressure, meaning it is not improved whenever her blood pressure is within normal limits Case discussed with neurology on 05/26, who recommended LP, but stated that this is likely sequela of hypoxic event from drug use. thiamine 500 mg IM 3 times daily started on 05 26,for 3 days, now on po thiamine daily 06/06 Daughter Ina made contact with RN. I also spoke with her, at this point, her mother's condition is sub acute. No need for interventions. Ina is aware her mother needs compensation intern care. She is willing to assist with this, but neither she, nor her mother have a safe place to live. Qualifiers: Altered mental status type: stupor Qualified Code(s): R40.1 - Stupor (3) Pubic bone fracture: Impression: X-ray hip on 05/25 shows moderately displaced right inferior pubic ramus fracture with extension in the medial acetabular column and suspicion for extension to the pelvic ring. Case was discussed with on-call orthopedist, who reports this is nonoperative. She is full weightbearing as tolerated and will need a walker at discharge. If her mentation improves, we will order PT eval, currently not able to particpate with PT. She has been seen 1x for PT, no rehab potentential. She is getting to the chair daily with staff assistance (4) Malnutrition: Impression: Severe protein calorie malnutrition given obvious muscle wasting, loss of subcutaneous fat, bedridden. She is eatiing 100% of meals. BMI increased from 14.9 to 15.7. This is an improvmeent. This patient's diagnosis and treatment plan was discussed this AM with attending physician as a part of multi disciplinary rounding meeting. non billable rounding Qualifiers: Malnutrition type: unspecified type Qualified Code(s): E46 - Unspecified protein-calorie malnutrition
--- NOTE | 2025-07-19 12:22 | PROVIDER PROGRESS NOTE ---
Subjective Prog Note Date Prog Note Date: 07/19/25 Current Medications Current Medications Current Medications: Current Medications Generic Name Dose Route Start Last Admin Trade Name Falguni PRN Reason Stop Dose Admin Acetaminophen 650 mg 05/21/25 14:24 07/15/25 22:33 Acetaminophen 325 Mg Tablet PO 650 mg Q4HR PRN Administration Pain 1 to 4, or Fever Apixaban 2.5 mg 05/29/25 21:00 07/19/25 08:28 Apixaban 2.5 Mg Tablet PO 2.5 mg BID WEST Administration Calcium Carbonate/Glycine 500 mg 06/04/25 09:00 07/19/25 08:28 Calcium Carbonate Chew 500 Mg Tablet PO 500 mg DAILY WEST Administration Cetirizine HCl 10 mg 07/06/25 11:37 07/14/25 07:47 Cetirizine 10 Mg Tablet PO 10 mg DAILY PRN Administration Allergy Symptoms Cholecalciferol 25 mcg 06/04/25 09:00 07/19/25 08:29 Cholecalciferol 25 Mcg Tablet PO 25 mcg DAILY WEST Administration Cyclobenzaprine HCl 10 mg 06/18/25 13:19 07/08/25 06:04 Cyclobenzaprine 10 Mg Tablet PO 10 mg TID PRN Administration Spasms Docusate Sodium 250 - 500 mg 07/02/25 10:35 Docusate Sodium 250 Mg Capsule PO DAILY PRN Constipation Naloxone HCl 0.4 mg 06/13/25 22:08 Naloxone 0.4 Mg/Ml Vial IVP Q10M PRN respiratory depression Polyethylene Glycol 17 gm 07/02/25 10:34 07/14/25 07:46 Polyethylene Glycol 3350 17 Gm Packet PO 17 gm DAILY PRN Administration Constipation Multivit/Folic Acid/Iron 1 tab 05/25/25 08:00 07/19/25 08:29 Vitamin Tablet PO 1 tab DAILYWM WEST Administration Saccharomyces Boulardii 500 mg 06/25/25 17:00 07/19/25 08:29 Saccharomyces Boulardii 250 Mg Capsule PO 500 mg BIDWM WEST Administration Sodium Chloride 10 ml 05/21/25 14:24 06/18/25 00:14 Sodium Chloride Flush 0.9% 10 Ml Syringe IVP 10 ml PRN PRN Administration NEEDED PER PROVIDER ORDERS Thiamine HCl 100 mg 05/30/25 09:00 07/19/25 08:29 Thiamine 100 Mg Tablet PO 100 mg DAILY WEST Administration Zinc Oxide 113 gm 06/28/25 12:00 07/14/25 23:48 Cod Liver Oil/Zinc Oxide 113 Gm Tube TOP 1 applic PRN PRN Administration Skin Care Objective Vital Signs/Intake & Output Reviewed Vital Signs: Yes Vital Signs: Vital Signs x48h Temp Pulse Resp BP Pulse Ox 07/19/25 08:15 36.5 C 95 20 134/87 H 94 Intake & Output: Intake & Output 07/16/25 07/17/25 07/18/25 07/19/25 23:59 23:59 23:59 23:59 Intake Total 1080 / 1080 1290 / 1290 920 / 920 360 / 360 Balance 1080 / 1080 1290 / 1290 920 / 920 360 / 360 Weight (kg) 44 kg Objective General Appearance: positive No acute distress Eyes Bilateral: positive Normal inspection ENT: positive ENT inspection nml Neck: positive Nml inspection Respiratory: positive No respiratory distress and Breath sounds nml Cardiovascular: positive Regular rate & rhythm Abdomen: positive No distention Skin: positive Color nml, No rash and Dry Extremities: positive Nml appearance and No pedal edema Neurologic/Psychiatric: positive Other (smiles and says hi, otherwise not verbal. ) Lab Results 06/27/25 16:37 06/27/25 16:37 Other Labs: Lab Results x24hrs 07/06/25 Range/Units 13:10 Nasal Adenovirus (PCR) NOT DETECTED Nasal B. parapertussis DNA (PCR) NOT DETECTED Nasal Coronavir 229E PCR NOT DETECTED Nasal Coronavir HKU1 PCR NOT DETECTED Nasal Coronavir NL63 PCR NOT DETECTED Nasal Coronavir OC43 PCR NOT DETECTED Nasal Enterovir/Rhinovir PCR NOT DETECTED Nasal Influenza B PCR NOT DETECTED Nasal Influenza A PCR NOT DETECTED Nasal Parainfluen 1 PCR NOT DETECTED Nasal Parainfluen 2 PCR NOT DETECTED Nasal Parainfluen 3 PCR NOT DETECTED Nasal Parainfluen 4 PCR NOT DETECTED Nasal RSV (PCR) NOT DETECTED Nasal B.pertussis DNA PCR NOT DETECTED Nasal C.pneumoniae (PCR) NOT DETECTED Rory Human Metapneumo PCR NOT DETECTED Nasal M.pneumoniae (PCR) NOT DETECTED Nasal SARS-CoV-2 (PCR) NOT DETECTED Sepsis Event Note (H) Evaluation Current Stage of Sepsis: Ruled out Assessment/Plan Problem List (1) Polysubstance abuse: Impression: She has been in the hospital since 05/13/2025 UDS on presentation was positive for opiates, amphetamine, methamphetamine, cocaine She is out of the window for any acute withdrawal. She has not had any acute changes in her mental status for at least a week. 06/13: She is having some overall tenseness and hyperactivity, likely a psychomotor side effect of her polysubstance abuse. I am starting Suboxone 8-2 mg SL daily and will monitor for effect versus toxicity 05/20: She did not tolerate her dose of Suboxone very well. She was very lethargic through most of yesterday afternoon and is still only responding to pain. Last night I gave her a dose of Narcan with minimal effect. I gave her a liter of IV fluids and sent her for CT head out of an abundance of caution which showed no acute changes. I have discontinued her Suboxone, and I am keeping her on continuous pulse ox to watch for respiratory depression. I have Narcan ordered as needed. Chest x-ray was performed as she had some desaturation requiring 2 L O2. This showed no acute findings. 06/15: Her mentation is much improved today as the Suboxone is washing out of her system. As we do not stock smaller doses of Suboxone, we will likely not pursue this any further. She is back to her mentation as of a few days ago. Remains medically clear. Today is nonbillable rounding 06/16: No change in condition, no change in plan. (2) Altered mental status: Impression: Altered mentation likely secondary to polysubstance abuse UDS on presentation positive for opiates, amphetamine, methamphetamine, cocaine Patient was held in observation, and repeat CT and MRI were performed. MRI shows diffuse white matter hyperintense signal which may represent edema. Not the typical presentation of press Her altered mentation is not affected by her blood pressure, meaning it is not improved whenever her blood pressure is within normal limits Case discussed with neurology on 05/26, who recommended LP, but stated that this is likely sequela of hypoxic event from drug use. thiamine 500 mg IM 3 times daily started on 05 26,for 3 days, now on po thiamine daily 06/06 Daughter Ina made contact with RN. I also spoke with her, at this point, her mother's condition is sub acute. No need for interventions. 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 She is willing to assist with this, but neither she, nor her mother have a safe place to live. Qualifiers: Altered mental status type: stupor Qualified Code(s): R40.1 - Stupor (3) Pubic bone fracture: Impression: X-ray hip on 05/25 shows moderately displaced right inferior pubic ramus fracture with extension in the medial acetabular column and suspicion for extension to the pelvic ring. Case was discussed with on-call orthopedist, who reports this is nonoperative. She is full weightbearing as tolerated and will need a walker at discharge. If her mentation improves, we will order PT evarturo, currently not able to particpate with PT. She has been seen 1x for PT, no rehab potentential. She is getting to the chair daily with staff assistance (4) Malnutrition: Impression: Severe protein calorie malnutrition given obvious muscle wasting, loss of subcutaneous fat, bedridden. She is eatiing 100% of meals. BMI increased from 14.9 to 15.7. This is an improvmeent. This patient's diagnosis and treatment plan was discussed this AM with attending physician as a part of multi disciplinary rounding meeting. non billable rounding Qualifiers: Malnutrition type: unspecified type Qualified Code(s): E46 - Unspecified protein-calorie malnutrition
--- NOTE | 2025-07-20 11:02 | PROVIDER PROGRESS NOTE ---
Subjective Prog Note Date Prog Note Date: 07/20/25 Subjective Pt reports feeling: No change Current Medications Current Medications Current Medications: Current Medications Generic Name Dose Route Start Last Admin Trade Name Falguni PRN Reason Stop Dose Admin Acetaminophen 650 mg 05/21/25 14:24 07/15/25 22:33 Acetaminophen 325 Mg Tablet PO 650 mg Q4HR PRN Administration Pain 1 to 4, or Fever Apixaban 2.5 mg 05/29/25 21:00 07/20/25 08:16 Apixaban 2.5 Mg Tablet PO 2.5 mg BID WEST Administration Calcium Carbonate/Glycine 500 mg 06/04/25 09:00 07/20/25 08:16 Calcium Carbonate Chew 500 Mg Tablet PO 500 mg DAILY WEST Administration Cetirizine HCl 10 mg 07/06/25 11:37 07/14/25 07:47 Cetirizine 10 Mg Tablet PO 10 mg DAILY PRN Administration Allergy Symptoms Cholecalciferol 25 mcg 06/04/25 09:00 07/20/25 08:16 Cholecalciferol 25 Mcg Tablet PO 25 mcg DAILY WEST Administration Cyclobenzaprine HCl 10 mg 06/18/25 13:19 07/08/25 06:04 Cyclobenzaprine 10 Mg Tablet PO 10 mg TID PRN Administration Spasms Docusate Sodium 250 - 500 mg 07/02/25 10:35 Docusate Sodium 250 Mg Capsule PO DAILY PRN Constipation Naloxone HCl 0.4 mg 06/13/25 22:08 Naloxone 0.4 Mg/Ml Vial IVP Q10M PRN respiratory depression Polyethylene Glycol 17 gm 07/02/25 10:34 07/14/25 07:46 Polyethylene Glycol 3350 17 Gm Packet PO 17 gm DAILY PRN Administration Constipation Multivit/Folic Acid/Iron 1 tab 05/25/25 08:00 07/20/25 08:16 Vitamin Tablet PO 1 tab DAILYWM WEST Administration Saccharomyces Boulardii 500 mg 06/25/25 17:00 07/20/25 08:16 Saccharomyces Boulardii 250 Mg Capsule PO 500 mg BIDWM WEST Administration Sodium Chloride 10 ml 05/21/25 14:24 06/18/25 00:14 Sodium Chloride Flush 0.9% 10 Ml Syringe IVP 10 ml PRN PRN Administration NEEDED PER PROVIDER ORDERS Thiamine HCl 100 mg 05/30/25 09:00 07/20/25 08:16 Thiamine 100 Mg Tablet PO 100 mg DAILY WEST Administration Zinc Oxide 113 gm 06/28/25 12:00 07/14/25 23:48 Cod Liver Oil/Zinc Oxide 113 Gm Tube TOP 1 applic PRN PRN Administration Skin Care Objective Vital Signs/Intake & Output Reviewed Vital Signs: Yes Vital Signs: Vital Signs x48h Temp Pulse Resp BP Pulse Ox 07/20/25 08:44 36.4 C L 105 H 24 141/92 H 94 Intake & Output: Intake & Output 07/17/25 07/18/25 07/19/25 07/20/25 23:59 23:59 23:59 23:59 Intake Total 1290 / 1290 920 / 920 1537 / 1537 110 / 110 Balance 1290 / 1290 920 / 920 1537 / 1537 110 / 110 Weight (kg) 44 kg Objective General Appearance: positive No acute distress Eyes Bilateral: positive Normal inspection ENT: positive ENT inspection nml Neck: positive Nml inspection Respiratory: positive No respiratory distress and Breath sounds nml Cardiovascular: positive Regular rate & rhythm Abdomen: positive No distention Skin: positive Color nml, No rash and Dry Extremities: positive Nml appearance and No pedal edema Neurologic/Psychiatric: positive Other (smiles and says hi, otherwise not verbal. ) Lab Results 06/27/25 16:37 06/27/25 16:37 Other Labs: Lab Results x24hrs 07/06/25 Range/Units 13:10 Nasal Adenovirus (PCR) NOT DETECTED Nasal B. parapertussis DNA (PCR) NOT DETECTED Nasal Coronavir 229E PCR NOT DETECTED Nasal Coronavir HKU1 PCR NOT DETECTED Nasal Coronavir NL63 PCR NOT DETECTED Nasal Coronavir OC43 PCR NOT DETECTED Nasal Enterovir/Rhinovir PCR NOT DETECTED Nasal Influenza B PCR NOT DETECTED Nasal Influenza A PCR NOT DETECTED Nasal Parainfluen 1 PCR NOT DETECTED Nasal Parainfluen 2 PCR NOT DETECTED Nasal Parainfluen 3 PCR NOT DETECTED Nasal Parainfluen 4 PCR NOT DETECTED Nasal RSV (PCR) NOT DETECTED Nasal B.pertussis DNA PCR NOT DETECTED Nasal C.pneumoniae (PCR) NOT DETECTED Rory Human Metapneumo PCR NOT DETECTED Nasal M.pneumoniae (PCR) NOT DETECTED Nasal SARS-CoV-2 (PCR) NOT DETECTED Sepsis Event Note (H) Evaluation Current Stage of Sepsis: Ruled out Assessment/Plan Problem List (1) Polysubstance abuse: Impression: She has been in the hospital since 05/13/2025 UDS on presentation was positive for opiates, amphetamine, methamphetamine, cocaine She is out of the window for any acute withdrawal. She has not had any acute changes in her mental status for at least a week. 06/13: She is having some overall tenseness and hyperactivity, likely a psychomotor side effect of her polysubstance abuse. I am starting Suboxone 8-2 mg SL daily and will monitor for effect versus toxicity 05/20: She did not tolerate her dose of Suboxone very well. She was very lethargic through most of yesterday afternoon and is still only responding to pain. Last night I gave her a dose of Narcan with minimal effect. I gave her a liter of IV fluids and sent her for CT head out of an abundance of caution which showed no acute changes. I have discontinued her Suboxone, and I am keeping her on continuous pulse ox to watch for respiratory depression. I have Narcan ordered as needed. Chest x-ray was performed as she had some desaturation requiring 2 L O2. This showed no acute findings. 06/15: Her mentation is much improved today as the Suboxone is washing out of her system. As we do not stock smaller doses of Suboxone, we will likely not pursue this any further. She is back to her mentation as of a few days ago. Remains medically clear. Today is nonbillable rounding 06/16: No change in condition, no change in plan. (2) Altered mental status: Impression: Altered mentation likely secondary to polysubstance abuse UDS on presentation positive for opiates, amphetamine, methamphetamine, cocaine Patient was held in observation, and repeat CT and MRI were performed. MRI shows diffuse white matter hyperintense signal which may represent edema. Not the typical presentation of press Her altered mentation is not affected by her blood pressure, meaning it is not improved whenever her blood pressure is within normal limits Case discussed with neurology on 05/26, who recommended LP, but stated that this is likely sequela of hypoxic event from drug use. thiamine 500 mg IM 3 times daily started on 05 26,for 3 days, now on po thiamine daily 06/06 Daughter Ina made contact with RN. I also spoke with her, at this point, her mother's condition is sub acute. No need for interventions. Ina is aware her mother needs jail care. She is willing to assist with this, but neither she, nor her mother have a safe place to live. Qualifiers: Altered mental status type: stupor Qualified Code(s): R40.1 - Stupor (3) Pubic bone fracture: Impression: X-ray hip on 05/25 shows moderately displaced right inferior pubic ramus fracture with extension in the medial acetabular column and suspicion for extension to the pelvic ring. Case was discussed with on-call orthopedist, who reports this is nonoperative. She is full weightbearing as tolerated and will need a walker at discharge. If her mentation improves, we will order PT evarturo, currently not able to particpate with PT. She has been seen 1x for PT, no rehab potentential. She is getting to the chair daily with staff assistance (4) Malnutrition: Impression: Severe protein calorie malnutrition given obvious muscle wasting, loss of subcutaneous fat, bedridden. She is eatiing 100% of meals. BMI increased from 14.9 to 15.7. This is an improvmeent. This patient's diagnosis and treatment plan was discussed this AM with attending physician as a part of multi disciplinary rounding meeting. non billable rounding Qualifiers: Malnutrition type: unspecified type Qualified Code(s): E46 - Unspecified protein-calorie malnutrition
--- NOTE | 2025-07-21 11:27 | PROVIDER PROGRESS NOTE ---
Subjective Prog Note Date Prog Note Date: 07/21/25 Subjective Pt reports feeling: No change Current Medications Current Medications Current Medications: Current Medications Generic Name Dose Route Start Last Admin Trade Name Falguni PRN Reason Stop Dose Admin Acetaminophen 650 mg 05/21/25 14:24 07/15/25 22:33 Acetaminophen 325 Mg Tablet PO 650 mg Q4HR PRN Administration Pain 1 to 4, or Fever Apixaban 2.5 mg 05/29/25 21:00 07/21/25 08:03 Apixaban 2.5 Mg Tablet PO 2.5 mg BID WEST Administration Calcium Carbonate/Glycine 500 mg 06/04/25 09:00 07/21/25 08:03 Calcium Carbonate Chew 500 Mg Tablet PO 500 mg DAILY WEST Administration Cetirizine HCl 10 mg 07/06/25 11:37 07/14/25 07:47 Cetirizine 10 Mg Tablet PO 10 mg DAILY PRN Administration Allergy Symptoms Cholecalciferol 25 mcg 06/04/25 09:00 07/21/25 08:03 Cholecalciferol 25 Mcg Tablet PO 25 mcg DAILY WEST Administration Cyclobenzaprine HCl 10 mg 06/18/25 13:19 07/08/25 06:04 Cyclobenzaprine 10 Mg Tablet PO 10 mg TID PRN Administration Spasms Docusate Sodium 250 - 500 mg 07/02/25 10:35 Docusate Sodium 250 Mg Capsule PO DAILY PRN Constipation Naloxone HCl 0.4 mg 06/13/25 22:08 Naloxone 0.4 Mg/Ml Vial IVP Q10M PRN respiratory depression Polyethylene Glycol 17 gm 07/02/25 10:34 07/14/25 07:46 Polyethylene Glycol 3350 17 Gm Packet PO 17 gm DAILY PRN Administration Constipation Multivit/Folic Acid/Iron 1 tab 05/25/25 08:00 07/21/25 08:04 Vitamin Tablet PO 1 tab DAILYWM WEST Administration Saccharomyces Boulardii 500 mg 06/25/25 17:00 07/21/25 08:03 Saccharomyces Boulardii 250 Mg Capsule PO 500 mg BIDWM WEST Administration Sodium Chloride 10 ml 05/21/25 14:24 06/18/25 00:14 Sodium Chloride Flush 0.9% 10 Ml Syringe IVP 10 ml PRN PRN Administration NEEDED PER PROVIDER ORDERS Thiamine HCl 100 mg 05/30/25 09:00 07/21/25 08:03 Thiamine 100 Mg Tablet PO 100 mg DAILY WEST Administration Zinc Oxide 113 gm 06/28/25 12:00 07/21/25 01:20 Cod Liver Oil/Zinc Oxide 113 Gm Tube TOP 1 applic PRN PRN Administration Skin Care Objective Vital Signs/Intake & Output Reviewed Vital Signs: Yes Vital Signs: Vital Signs x48h Temp Pulse Resp BP Pulse Ox 07/21/25 08:30 36.5 C 84 22 145/90 H 95 Intake & Output: Intake & Output 07/18/25 07/19/25 07/20/25 07/21/25 23:59 23:59 23:59 23:59 Intake Total 920 / 920 1537 / 1537 1280 / 1280 460 / 460 Balance 920 / 920 1537 / 1537 1280 / 1280 460 / 460 Weight (kg) 44 kg Objective General Appearance: positive No acute distress Eyes Bilateral: positive Normal inspection ENT: positive ENT inspection nml Neck: positive Nml inspection Respiratory: positive No respiratory distress and Breath sounds nml Cardiovascular: positive Regular rate & rhythm Abdomen: positive No distention Skin: positive Color nml, No rash and Dry Extremities: positive Nml appearance and No pedal edema Neurologic/Psychiatric: positive Other (smiles and says hi, otherwise not verbal. ) Lab Results 06/27/25 16:37 06/27/25 16:37 Other Labs: Lab Results x24hrs 07/06/25 Range/Units 13:10 Nasal Adenovirus (PCR) NOT DETECTED Nasal B. parapertussis DNA (PCR) NOT DETECTED Nasal Coronavir 229E PCR NOT DETECTED Nasal Coronavir HKU1 PCR NOT DETECTED Nasal Coronavir NL63 PCR NOT DETECTED Nasal Coronavir OC43 PCR NOT DETECTED Nasal Enterovir/Rhinovir PCR NOT DETECTED Nasal Influenza B PCR NOT DETECTED Nasal Influenza A PCR NOT DETECTED Nasal Parainfluen 1 PCR NOT DETECTED Nasal Parainfluen 2 PCR NOT DETECTED Nasal Parainfluen 3 PCR NOT DETECTED Nasal Parainfluen 4 PCR NOT DETECTED Nasal RSV (PCR) NOT DETECTED Nasal B.pertussis DNA PCR NOT DETECTED Nasal C.pneumoniae (PCR) NOT DETECTED Rory Human Metapneumo PCR NOT DETECTED Nasal M.pneumoniae (PCR) NOT DETECTED Nasal SARS-CoV-2 (PCR) NOT DETECTED Sepsis Event Note (H) Evaluation Current Stage of Sepsis: Ruled out Assessment/Plan Problem List (1) Polysubstance abuse: Impression: She has been in the hospital since 05/13/2025 UDS on presentation was positive for opiates, amphetamine, methamphetamine, cocaine She is out of the window for any acute withdrawal. She has not had any acute changes in her mental status for at least a week. 06/13: She is having some overall tenseness and hyperactivity, likely a psychomotor side effect of her polysubstance abuse. I am starting Suboxone 8-2 mg SL daily and will monitor for effect versus toxicity 05/20: She did not tolerate her dose of Suboxone very well. She was very lethargic through most of yesterday afternoon and is still only responding to pain. Last night I gave her a dose of Narcan with minimal effect. I gave her a liter of IV fluids and sent her for CT head out of an abundance of caution which showed no acute changes. I have discontinued her Suboxone, and I am keeping her on continuous pulse ox to watch for respiratory depression. I have Narcan ordered as needed. Chest x-ray was performed as she had some desaturation requiring 2 L O2. This showed no acute findings. 06/15: Her mentation is much improved today as the Suboxone is washing out of her system. As we do not stock smaller doses of Suboxone, we will likely not pursue this any further. She is back to her mentation as of a few days ago. Remains medically clear. Today is nonbillable rounding 06/16: No change in condition, no change in plan. (2) Altered mental status: Impression: Altered mentation likely secondary to polysubstance abuse UDS on presentation positive for opiates, amphetamine, methamphetamine, cocaine Patient was held in observation, and repeat CT and MRI were performed. MRI shows diffuse white matter hyperintense signal which may represent edema. Not the typical presentation of press Her altered mentation is not affected by her blood pressure, meaning it is not improved whenever her blood pressure is within normal limits Case discussed with neurology on 05/26, who recommended LP, but stated that this is likely sequela of hypoxic event from drug use. thiamine 500 mg IM 3 times daily started on 05 26,for 3 days, now on po thiamine daily 06/06 Daughter Ina made contact with RN. I also spoke with her, at this point, her mother's condition is sub acute. No need for interventions. Ina is aware her mother needs [facility] care. She is willing to assist with this, but neither she, nor her mother have a safe place to live. Qualifiers: Altered mental status type: stupor Qualified Code(s): R40.1 - Stupor (3) Pubic bone fracture: Impression: X-ray hip on 05/25 shows moderately displaced right inferior pubic ramus fracture with extension in the medial acetabular column and suspicion for extension to the pelvic ring. Case was discussed with on-call orthopedist, who reports this is nonoperative. She is full weightbearing as tolerated and will need a walker at discharge. If her mentation improves, we will order PT eval, currently not able to particpate with PT. She has been seen 1x for PT, no rehab potentential. She is getting to the chair daily with staff assistance (4) Malnutrition: Impression: Severe protein calorie malnutrition given obvious muscle wasting, loss of subcutaneous fat, bedridden. She is eatiing 100% of meals. BMI increased from 14.9 to 15.7. This is an improvmeent. This patient's diagnosis and treatment plan was discussed this AM with attending physician as a part of multi disciplinary rounding meeting. non billable rounding Qualifiers: Malnutrition type: unspecified type Qualified Code(s): E46 - Unspecified protein-calorie malnutrition
--- NOTE | 2025-07-22 20:48 | PROVIDER PROGRESS NOTE ---
Subjective Prog Note Date Prog Note Date: 07/22/25 Subjective Subjective: sitting up in chair after dinner. Smiles responsively. Current Medications Current Medications Current Medications: Current Medications Generic Name Dose Route Start Last Admin Trade Name Falguni PRN Reason Stop Dose Admin Acetaminophen 650 mg 05/21/25 14:24 07/22/25 03:17 Acetaminophen 325 Mg Tablet PO 650 mg Q4HR PRN Administration Pain 1 to 4, or Fever Apixaban 2.5 mg 05/29/25 21:00 07/22/25 08:15 Apixaban 2.5 Mg Tablet PO 2.5 mg BID WEST Administration Calcium Carbonate/Glycine 500 mg 06/04/25 09:00 07/22/25 08:16 Calcium Carbonate Chew 500 Mg Tablet PO 500 mg DAILY WEST Administration Cetirizine HCl 10 mg 07/06/25 11:37 07/14/25 07:47 Cetirizine 10 Mg Tablet PO 10 mg DAILY PRN Administration Allergy Symptoms Cholecalciferol 25 mcg 06/04/25 09:00 07/22/25 08:15 Cholecalciferol 25 Mcg Tablet PO 25 mcg DAILY WEST Administration Cyclobenzaprine HCl 10 mg 06/18/25 13:19 07/08/25 06:04 Cyclobenzaprine 10 Mg Tablet PO 10 mg TID PRN Administration Spasms Docusate Sodium 250 - 500 mg 07/02/25 10:35 Docusate Sodium 250 Mg Capsule PO DAILY PRN Constipation Naloxone HCl 0.4 mg 06/13/25 22:08 Naloxone 0.4 Mg/Ml Vial IVP Q10M PRN respiratory depression Polyethylene Glycol 17 gm 07/02/25 10:34 07/14/25 07:46 Polyethylene Glycol 3350 17 Gm Packet PO 17 gm DAILY PRN Administration Constipation Multivit/Folic Acid/Iron 1 tab 05/25/25 08:00 07/22/25 08:15 Vitamin Tablet PO 1 tab DAILYWM WEST Administration Sodium Chloride 10 ml 05/21/25 14:24 06/18/25 00:14 Sodium Chloride Flush 0.9% 10 Ml Syringe IVP 10 ml PRN PRN Administration NEEDED PER PROVIDER ORDERS Thiamine HCl 100 mg 05/30/25 09:00 07/22/25 08:16 Thiamine 100 Mg Tablet PO 100 mg DAILY WEST Administration Zinc Oxide 113 gm 06/28/25 12:00 07/22/25 03:13 Cod Liver Oil/Zinc Oxide 113 Gm Tube TOP 1 applic PRN PRN Administration Skin Care Objective Vital Signs/Intake & Output Reviewed Vital Signs: Yes Vital Signs: Vital Signs x48h Temp Pulse Resp BP Pulse Ox 07/21/25 08:30 36.5 C 84 22 145/90 H 95 Intake & Output: Intake & Output 07/19/25 07/20/25 07/21/25 07/22/25 23:59 23:59 23:59 23:59 Intake Total 1537 / 1537 1280 / 1280 840 / 840 820 / 820 Balance 1537 / 1537 1280 / 1280 840 / 840 820 / 820 Objective General Appearance: positive No acute distress Eyes Bilateral: positive Normal inspection ENT: positive ENT inspection nml Neck: positive Nml inspection Respiratory: positive No respiratory distress and Breath sounds nml Cardiovascular: positive Regular rate & rhythm Abdomen: positive No distention Skin: positive Color nml, No rash and Dry Extremities: positive Nml appearance and No pedal edema Neurologic/Psychiatric: positive Other (smiles and says hi, otherwise not verbal. ) Lab Results 06/27/25 16:37 06/27/25 16:37 Other Labs: Lab Results x24hrs 07/06/25 Range/Units 13:10 Nasal Adenovirus (PCR) NOT DETECTED Nasal B. parapertussis DNA (PCR) NOT DETECTED Nasal Coronavir 229E PCR NOT DETECTED Nasal Coronavir HKU1 PCR NOT DETECTED Nasal Coronavir NL63 PCR NOT DETECTED Nasal Coronavir OC43 PCR NOT DETECTED Nasal Enterovir/Rhinovir PCR NOT DETECTED Nasal Influenza B PCR NOT DETECTED Nasal Influenza A PCR NOT DETECTED Nasal Parainfluen 1 PCR NOT DETECTED Nasal Parainfluen 2 PCR NOT DETECTED Nasal Parainfluen 3 PCR NOT DETECTED Nasal Parainfluen 4 PCR NOT DETECTED Nasal RSV (PCR) NOT DETECTED Nasal B.pertussis DNA PCR NOT DETECTED Nasal C.pneumoniae (PCR) NOT DETECTED Rory Human Metapneumo PCR NOT DETECTED Nasal M.pneumoniae (PCR) NOT DETECTED Nasal SARS-CoV-2 (PCR) NOT DETECTED Sepsis Event Note (H) Evaluation Current Stage of Sepsis: Ruled out Assessment/Plan Problem List (1) Polysubstance abuse: Impression: She has been in the hospital since 05/13/2025 UDS on presentation was positive for opiates, amphetamine, methamphetamine, cocaine She is out of the window for any acute withdrawal. She has not had any acute changes in her mental status for at least a week. 06/13: She is having some overall tenseness and hyperactivity, likely a psychomotor side effect of her polysubstance abuse. I am starting Suboxone 8-2 mg SL daily and will monitor for effect versus toxicity 05/20: She did not tolerate her dose of Suboxone very well. She was very lethargic through most of yesterday afternoon and is still only responding to pain. Last night I gave her a dose of Narcan with minimal effect. I gave her a liter of IV fluids and sent her for CT head out of an abundance of caution which showed no acute changes. I have discontinued her Suboxone, and I am keeping her on continuous pulse ox to watch for respiratory depression. I have Narcan ordered as needed. Chest x-ray was performed as she had some desaturation requiring 2 L O2. This showed no acute findings. 06/15: Her mentation is much improved today as the Suboxone is washing out of her system. As we do not stock smaller doses of Suboxone, we will likely not pursue this any further. She is back to her mentation as of a few days ago. Remains medically clear. Today is nonbillable rounding 06/16: No change in condition, no change in plan. (2) Altered mental status: Impression: Altered mentation likely secondary to polysubstance abuse UDS on presentation positive for opiates, amphetamine, methamphetamine, cocaine Patient was held in observation, and repeat CT and MRI were performed. MRI shows diffuse white matter hyperintense signal which may represent edema. Not the typical presentation of press Her altered mentation is not affected by her blood pressure, meaning it is not improved whenever her blood pressure is within normal limits Case discussed with neurology on 05/26, who recommended LP, but stated that this is likely sequela of hypoxic event from drug use. thiamine 500 mg IM 3 times daily started on 05 26,for 3 days, now on po thiamine daily 06/06 Daughter Ina made contact with RN. I also spoke with her, at this point, her mother's condition is sub acute. No need for interventions. Ina is aware her mother needs shelter care. She is willing to assist with this, but neither she, nor her mother have a safe place to live. Qualifiers: Altered mental status type: stupor Qualified Code(s): R40.1 - Stupor (3) Pubic bone fracture: Impression: X-ray hip on 05/25 shows moderately displaced right inferior pubic ramus fracture with extension in the medial acetabular column and suspicion for extension to the pelvic ring. Case was discussed with on-call orthopedist, who reports this is nonoperative. She is full weightbearing as tolerated and will need a walker at discharge. If her mentation improves, we will order PT jesús, currently not able to particpate with PT. She has been seen 1x for PT, no rehab potentential. She is getting to the chair daily with staff assistance (4) Malnutrition: Impression: Severe protein calorie malnutrition given obvious muscle wasting, loss of subcutaneous fat, bedridden. She is eatiing 100% of meals. BMI increased from 14.9 to 15.7. This is an improvmeent. This patient's diagnosis and treatment plan was discussed this AM with attending physician as a part of multi disciplinary rounding meeting. non billable rounding Qualifiers: Malnutrition type: unspecified type Qualified Code(s): E46 - Unspecified protein-calorie malnutrition
--- NOTE | 2025-07-23 19:06 | PROVIDER PROGRESS NOTE ---
Subjective Prog Note Date Prog Note Date: 07/23/25 Subjective Pt reports feeling: No change Current Medications Current Medications Current Medications: Current Medications Generic Name Dose Route Start Last Admin Trade Name Falguni PRN Reason Stop Dose Admin Acetaminophen 650 mg 05/21/25 14:24 07/22/25 03:17 Acetaminophen 325 Mg Tablet PO 650 mg Q4HR PRN Administration Pain 1 to 4, or Fever Apixaban 2.5 mg 05/29/25 21:00 07/23/25 08:07 Apixaban 2.5 Mg Tablet PO 2.5 mg BID WEST Administration Calcium Carbonate/Glycine 500 mg 06/04/25 09:00 07/23/25 08:07 Calcium Carbonate Chew 500 Mg Tablet PO 500 mg DAILY WEST Administration Cetirizine HCl 10 mg 07/06/25 11:37 07/14/25 07:47 Cetirizine 10 Mg Tablet PO 10 mg DAILY PRN Administration Allergy Symptoms Cholecalciferol 25 mcg 06/04/25 09:00 07/23/25 08:07 Cholecalciferol 25 Mcg Tablet PO 25 mcg DAILY WEST Administration Cyclobenzaprine HCl 10 mg 06/18/25 13:19 07/08/25 06:04 Cyclobenzaprine 10 Mg Tablet PO 10 mg TID PRN Administration Spasms Docusate Sodium 250 - 500 mg 07/02/25 10:35 Docusate Sodium 250 Mg Capsule PO DAILY PRN Constipation Naloxone HCl 0.4 mg 06/13/25 22:08 Naloxone 0.4 Mg/Ml Vial IVP Q10M PRN respiratory depression Polyethylene Glycol 17 gm 07/02/25 10:34 07/14/25 07:46 Polyethylene Glycol 3350 17 Gm Packet PO 17 gm DAILY PRN Administration Constipation Multivit/Folic Acid/Iron 1 tab 05/25/25 08:00 07/23/25 08:07 Vitamin Tablet PO 1 tab DAILYWM WEST Administration Sodium Chloride 10 ml 05/21/25 14:24 06/18/25 00:14 Sodium Chloride Flush 0.9% 10 Ml Syringe IVP 10 ml PRN PRN Administration NEEDED PER PROVIDER ORDERS Thiamine HCl 100 mg 05/30/25 09:00 07/23/25 08:07 Thiamine 100 Mg Tablet PO 100 mg DAILY WEST Administration Zinc Oxide 113 gm 06/28/25 12:00 07/23/25 06:37 Cod Liver Oil/Zinc Oxide 113 Gm Tube TOP 1 applic PRN PRN Administration Skin Care Objective Vital Signs/Intake & Output Reviewed Vital Signs: Yes Vital Signs: Vital Signs x48h Temp Pulse Resp BP Pulse Ox 07/21/25 08:30 36.5 C 84 22 145/90 H 95 Intake & Output: Intake & Output 07/20/25 07/21/25 07/22/25 07/23/25 23:59 23:59 23:59 23:59 Intake Total 1280 / 1280 840 / 840 1380 / 1380 580 / 580 Balance 1280 / 1280 840 / 840 1380 / 1380 580 / 580 Objective General Appearance: positive No acute distress Eyes Bilateral: positive Normal inspection ENT: positive ENT inspection nml Neck: positive Nml inspection Respiratory: positive No respiratory distress and Breath sounds nml Cardiovascular: positive Regular rate & rhythm Abdomen: positive No distention Skin: positive Color nml, No rash and Dry Extremities: positive Nml appearance and No pedal edema Neurologic/Psychiatric: positive Other (non verbal ) Lab Results 06/27/25 16:37 06/27/25 16:37 Other Labs: Lab Results x24hrs 07/06/25 Range/Units 13:10 Nasal Adenovirus (PCR) NOT DETECTED Nasal B. parapertussis DNA (PCR) NOT DETECTED Nasal Coronavir 229E PCR NOT DETECTED Nasal Coronavir HKU1 PCR NOT DETECTED Nasal Coronavir NL63 PCR NOT DETECTED Nasal Coronavir OC43 PCR NOT DETECTED Nasal Enterovir/Rhinovir PCR NOT DETECTED Nasal Influenza B PCR NOT DETECTED Nasal Influenza A PCR NOT DETECTED Nasal Parainfluen 1 PCR NOT DETECTED Nasal Parainfluen 2 PCR NOT DETECTED Nasal Parainfluen 3 PCR NOT DETECTED Nasal Parainfluen 4 PCR NOT DETECTED Nasal RSV (PCR) NOT DETECTED Nasal B.pertussis DNA PCR NOT DETECTED Nasal C.pneumoniae (PCR) NOT DETECTED Rory Human Metapneumo PCR NOT DETECTED Nasal M.pneumoniae (PCR) NOT DETECTED Nasal SARS-CoV-2 (PCR) NOT DETECTED Sepsis Event Note (H) Evaluation Current Stage of Sepsis: Ruled out Assessment/Plan Problem List (1) Polysubstance abuse: Impression: She has been in the hospital since 05/13/2025 UDS on presentation was positive for opiates, amphetamine, methamphetamine, cocaine She is out of the window for any acute withdrawal. She has not had any acute changes in her mental status for at least a week. 06/13: She is having some overall tenseness and hyperactivity, likely a psychomotor side effect of her polysubstance abuse. I am starting Suboxone 8-2 mg SL daily and will monitor for effect versus toxicity 05/20: She did not tolerate her dose of Suboxone very well. She was very lethargic through most of yesterday afternoon and is still only responding to pain. Last night I gave her a dose of Narcan with minimal effect. I gave her a liter of IV fluids and sent her for CT head out of an abundance of caution which showed no acute changes. I have discontinued her Suboxone, and I am keeping her on continuous pulse ox to watch for respiratory depression. I have Narcan ordered as needed. Chest x-ray was performed as she had some desaturation requiring 2 L O2. This showed no acute findings. 06/15: Her mentation is much improved today as the Suboxone is washing out of her system. As we do not stock smaller doses of Suboxone, we will likely not pursue this any further. She is back to her mentation as of a few days ago. Remains medically clear. Today is nonbillable rounding 06/16: No change in condition, no change in plan. (2) Altered mental status: Impression: Altered mentation likely secondary to polysubstance abuse UDS on presentation positive for opiates, amphetamine, methamphetamine, cocaine Patient was held in observation, and repeat CT and MRI were performed. MRI shows diffuse white matter hyperintense signal which may represent edema. Not the typical presentation of press Her altered mentation is not affected by her blood pressure, meaning it is not improved whenever her blood pressure is within normal limits Case discussed with neurology on 05/26, who recommended LP, but stated that this is likely sequela of hypoxic event from drug use. thiamine 500 mg IM 3 times daily started on 05 26,for 3 days, now on po thiamine daily 06/06 Daughter Ina made contact with RN. I also spoke with her, at this point, her mother's condition is sub acute. No need for interventions. Ina is aware her mother needs fpc care. She is willing to assist with this, but neither she, nor her mother have a safe place to live. Qualifiers: Altered mental status type: stupor Qualified Code(s): R40.1 - Stupor (3) Pubic bone fracture: Impression: X-ray hip on 05/25 shows moderately displaced right inferior pubic ramus fracture with extension in the medial acetabular column and suspicion for extension to the pelvic ring. Case was discussed with on-call orthopedist, who reports this is nonoperative. She is full weightbearing as tolerated and will need a walker at discharge. If her mentation improves, we will order PT jesús, currently not able to particpate with PT. She has been seen 1x for PT, no rehab potentential. She is getting to the chair daily with staff assistance (4) Malnutrition: Impression: Severe protein calorie malnutrition given obvious muscle wasting, loss of subcutaneous fat, bedridden. She is eatiing 100% of meals. BMI increased from 14.9 to 15.7. This is an improvmeent. This patient's diagnosis and treatment plan was discussed this AM with attending physician as a part of multi disciplinary rounding meeting. non billable rounding Qualifiers: Malnutrition type: unspecified type Qualified Code(s): E46 - Unspecified protein-calorie malnutrition
--- NOTE | 2025-07-24 17:20 | PROVIDER PROGRESS NOTE ---
Subjective Prog Note Date Prog Note Date: 07/24/25 Subjective Subjective: she was agitated and itchy this AM. Staff got her up and to the shower, did a complete linen change, and gave her a dose of zyrtec. she has been better this afternoon. Still eating and drinking well. Current Medications Current Medications Current Medications: Current Medications Generic Name Dose Route Start Last Admin Trade Name Falguni PRN Reason Stop Dose Admin Acetaminophen 650 mg 05/21/25 14:24 07/24/25 08:15 Acetaminophen 325 Mg Tablet PO 650 mg Q4HR PRN Administration Pain 1 to 4, or Fever Apixaban 2.5 mg 05/29/25 21:00 07/24/25 08:15 Apixaban 2.5 Mg Tablet PO 2.5 mg BID WEST Administration Calcium Carbonate/Glycine 500 mg 06/04/25 09:00 07/24/25 08:15 Calcium Carbonate Chew 500 Mg Tablet PO 500 mg DAILY WEST Administration Cetirizine HCl 10 mg 07/06/25 11:37 07/24/25 08:14 Cetirizine 10 Mg Tablet PO 10 mg DAILY PRN Administration Allergy Symptoms Cholecalciferol 25 mcg 06/04/25 09:00 07/24/25 08:14 Cholecalciferol 25 Mcg Tablet PO 25 mcg DAILY WEST Administration Cyclobenzaprine HCl 10 mg 06/18/25 13:19 07/24/25 08:14 Cyclobenzaprine 10 Mg Tablet PO 10 mg TID PRN Administration Spasms Docusate Sodium 250 - 500 mg 07/02/25 10:35 Docusate Sodium 250 Mg Capsule PO DAILY PRN Constipation Naloxone HCl 0.4 mg 06/13/25 22:08 Naloxone 0.4 Mg/Ml Vial IVP Q10M PRN respiratory depression Polyethylene Glycol 17 gm 07/02/25 10:34 07/14/25 07:46 Polyethylene Glycol 3350 17 Gm Packet PO 17 gm DAILY PRN Administration Constipation Multivit/Folic Acid/Iron 1 tab 05/25/25 08:00 07/24/25 08:15 Vitamin Tablet PO 1 tab DAILYWM WEST Administration Sodium Chloride 10 ml 05/21/25 14:24 06/18/25 00:14 Sodium Chloride Flush 0.9% 10 Ml Syringe IVP 10 ml PRN PRN Administration NEEDED PER PROVIDER ORDERS Thiamine HCl 100 mg 05/30/25 09:00 07/24/25 08:15 Thiamine 100 Mg Tablet PO 100 mg DAILY WEST Administration Zinc Oxide 113 gm 06/28/25 12:00 07/24/25 08:15 Cod Liver Oil/Zinc Oxide 113 Gm Tube TOP 1 applic PRN PRN Administration Skin Care Objective Vital Signs/Intake & Output Reviewed Vital Signs: Yes Vital Signs: Vital Signs x48h Temp Pulse Resp BP Pulse Ox 07/21/25 08:30 36.5 C 84 22 145/90 H 95 Intake & Output: Intake & Output 07/21/25 07/22/25 07/23/25 07/24/25 23:59 23:59 23:59 23:59 Intake Total 840 / 840 1380 / 1380 1220 / 1220 480 / 480 Balance 840 / 840 1380 / 1380 1220 / 1220 480 / 480 Objective General Appearance: positive No acute distress Eyes Bilateral: positive Normal inspection ENT: positive ENT inspection nml Neck: positive Nml inspection Respiratory: positive No respiratory distress and Breath sounds nml Cardiovascular: positive Regular rate & rhythm Abdomen: positive No distention Skin: positive Color nml, No rash and Dry Extremities: positive Nml appearance and No pedal edema Neurologic/Psychiatric: positive Other (one word answers today) Lab Results 06/27/25 16:37 06/27/25 16:37 Other Labs: Lab Results x24hrs 07/06/25 Range/Units 13:10 Nasal Adenovirus (PCR) NOT DETECTED Nasal B. parapertussis DNA (PCR) NOT DETECTED Nasal Coronavir 229E PCR NOT DETECTED Nasal Coronavir HKU1 PCR NOT DETECTED Nasal Coronavir NL63 PCR NOT DETECTED Nasal Coronavir OC43 PCR NOT DETECTED Nasal Enterovir/Rhinovir PCR NOT DETECTED Nasal Influenza B PCR NOT DETECTED Nasal Influenza A PCR NOT DETECTED Nasal Parainfluen 1 PCR NOT DETECTED Nasal Parainfluen 2 PCR NOT DETECTED Nasal Parainfluen 3 PCR NOT DETECTED Nasal Parainfluen 4 PCR NOT DETECTED Nasal RSV (PCR) NOT DETECTED Nasal B.pertussis DNA PCR NOT DETECTED Nasal C.pneumoniae (PCR) NOT DETECTED Rory Human Metapneumo PCR NOT DETECTED Nasal M.pneumoniae (PCR) NOT DETECTED Nasal SARS-CoV-2 (PCR) NOT DETECTED Sepsis Event Note (H) Evaluation Current Stage of Sepsis: Ruled out Assessment/Plan Problem List (1) Polysubstance abuse: Impression: She has been in the hospital since 05/13/2025 UDS on presentation was positive for opiates, amphetamine, methamphetamine, cocaine She is out of the window for any acute withdrawal. She has not had any acute changes in her mental status for at least a week. 06/13: She is having some overall tenseness and hyperactivity, likely a psychomotor side effect of her polysubstance abuse. I am starting Suboxone 8-2 mg SL daily and will monitor for effect versus toxicity 05/20: She did not tolerate her dose of Suboxone very well. She was very lethargic through most of yesterday afternoon and is still only responding to pain. Last night I gave her a dose of Narcan with minimal effect. I gave her a liter of IV fluids and sent her for CT head out of an abundance of caution which showed no acute changes. I have discontinued her Suboxone, and I am keeping her on continuous pulse ox to watch for respiratory depression. I have Narcan ordered as needed. Chest x-ray was performed as she had some desaturation requiring 2 L O2. This showed no acute findings. 06/15: Her mentation is much improved today as the Suboxone is washing out of her system. As we do not stock smaller doses of Suboxone, we will likely not pursue this any further. She is back to her mentation as of a few days ago. Remains medically clear. Today is nonbillable rounding 06/16: No change in condition, no change in plan. (2) Altered mental status: Impression: Altered mentation likely secondary to polysubstance abuse UDS on presentation positive for opiates, amphetamine, methamphetamine, cocaine Patient was held in observation, and repeat CT and MRI were performed. MRI shows diffuse white matter hyperintense signal which may represent edema. Not the typical presentation of press Her altered mentation is not affected by her blood pressure, meaning it is not improved whenever her blood pressure is within normal limits Case discussed with neurology on 05/26, who recommended LP, but stated that this is likely sequela of hypoxic event from drug use. thiamine 500 mg IM 3 times daily started on 05 26,for 3 days, now on po thiamine daily 06/06 Daughter Ina made contact with RN. I also spoke with her, at this point, her mother's condition is sub acute. No need for interventions. Ina is aware her mother needs nursing home care. She is willing to assist with this, but neither she, nor her mother have a safe place to live. Qualifiers: Altered mental status type: stupor Qualified Code(s): R40.1 - Stupor (3) Pubic bone fracture: Impression: X-ray hip on 05/25 shows moderately displaced right inferior pubic ramus fracture with extension in the medial acetabular column and suspicion for extension to the pelvic ring. Case was discussed with on-call orthopedist, who reports this is nonoperative. She is full weightbearing as tolerated and will need a walker at discharge. If her mentation improves, we will order PT jesús, currently not able to particpate with PT. She has been seen 1x for PT, no rehab potentential. She is getting to the chair daily with staff assistance (4) Malnutrition: Impression: Severe protein calorie malnutrition given obvious muscle wasting, loss of subcutaneous fat, bedridden. She is eatiing 100% of meals. BMI increased from 14.9 to 15.7. This is an improvmeent. This patient's diagnosis and treatment plan was discussed this AM with attending physician as a part of multi disciplinary rounding meeting. non billable rounding Qualifiers: Malnutrition type: unspecified type Qualified Code(s): E46 - Unspecified protein-calorie malnutrition
--- NOTE | 2025-07-25 20:25 | PROVIDER PROGRESS NOTE ---
Subjective Prog Note Date Prog Note Date: 07/25/25 Subjective Subjective: Sitting up in bedside chair, dragging her nails back and forth across the tabletop. Current Medications Current Medications Current Medications: Current Medications Generic Name Dose Route Start Last Admin Trade Name Falguni PRN Reason Stop Dose Admin Acetaminophen 650 mg 05/21/25 14:24 07/24/25 08:15 Acetaminophen 325 Mg Tablet PO 650 mg Q4HR PRN Administration Pain 1 to 4, or Fever Apixaban 2.5 mg 05/29/25 21:00 07/25/25 19:57 Apixaban 2.5 Mg Tablet PO 2.5 mg BID WEST Administration Calcium Carbonate/Glycine 500 mg 06/04/25 09:00 07/25/25 08:08 Calcium Carbonate Chew 500 Mg Tablet PO 500 mg DAILY WEST Administration Cetirizine HCl 10 mg 07/06/25 11:37 07/24/25 08:14 Cetirizine 10 Mg Tablet PO 10 mg DAILY PRN Administration Allergy Symptoms Cholecalciferol 25 mcg 06/04/25 09:00 07/25/25 08:08 Cholecalciferol 25 Mcg Tablet PO 25 mcg DAILY WEST Administration Cyclobenzaprine HCl 10 mg 06/18/25 13:19 07/24/25 08:14 Cyclobenzaprine 10 Mg Tablet PO 10 mg TID PRN Administration Spasms Docusate Sodium 250 - 500 mg 07/02/25 10:35 Docusate Sodium 250 Mg Capsule PO DAILY PRN Constipation Naloxone HCl 0.4 mg 06/13/25 22:08 Naloxone 0.4 Mg/Ml Vial IVP Q10M PRN respiratory depression Polyethylene Glycol 17 gm 07/02/25 10:34 07/14/25 07:46 Polyethylene Glycol 3350 17 Gm Packet PO 17 gm DAILY PRN Administration Constipation Multivit/Folic Acid/Iron 1 tab 05/25/25 08:00 07/25/25 08:09 Vitamin Tablet PO 1 tab DAILYWM WEST Administration Sodium Chloride 10 ml 05/21/25 14:24 06/18/25 00:14 Sodium Chloride Flush 0.9% 10 Ml Syringe IVP 10 ml PRN PRN Administration NEEDED PER PROVIDER ORDERS Thiamine HCl 100 mg 05/30/25 09:00 07/25/25 08:09 Thiamine 100 Mg Tablet PO 100 mg DAILY WEST Administration Zinc Oxide 113 gm 06/28/25 12:00 07/24/25 20:34 Cod Liver Oil/Zinc Oxide 113 Gm Tube TOP 1 applic PRN PRN Administration Skin Care Objective Vital Signs/Intake & Output Reviewed Vital Signs: Yes Vital Signs: Vital Signs x48h Temp Pulse Resp BP Pulse Ox 07/21/25 08:30 36.5 C 84 22 145/90 H 95 Intake & Output: Intake & Output 07/22/25 07/23/25 07/24/25 07/25/25 23:59 23:59 23:59 23:59 Intake Total 1380 / 1380 1220 / 1220 1200 / 1200 980 / 980 Balance 1380 / 1380 1220 / 1220 1200 / 1200 980 / 980 Objective General Appearance: positive No acute distress Eyes Bilateral: positive Normal inspection ENT: positive ENT inspection nml Neck: positive Nml inspection Respiratory: positive No respiratory distress and Breath sounds nml Cardiovascular: positive Regular rate & rhythm Abdomen: positive No distention Skin: positive Color nml, No rash and Dry Extremities: positive Nml appearance and No pedal edema Neurologic/Psychiatric: positive Other (non verbal) Lab Results 06/27/25 16:37 06/27/25 16:37 Other Labs: Lab Results x24hrs 07/06/25 Range/Units 13:10 Nasal Adenovirus (PCR) NOT DETECTED Nasal B. parapertussis DNA (PCR) NOT DETECTED Nasal Coronavir 229E PCR NOT DETECTED Nasal Coronavir HKU1 PCR NOT DETECTED Nasal Coronavir NL63 PCR NOT DETECTED Nasal Coronavir OC43 PCR NOT DETECTED Nasal Enterovir/Rhinovir PCR NOT DETECTED Nasal Influenza B PCR NOT DETECTED Nasal Influenza A PCR NOT DETECTED Nasal Parainfluen 1 PCR NOT DETECTED Nasal Parainfluen 2 PCR NOT DETECTED Nasal Parainfluen 3 PCR NOT DETECTED Nasal Parainfluen 4 PCR NOT DETECTED Nasal RSV (PCR) NOT DETECTED Nasal B.pertussis DNA PCR NOT DETECTED Nasal C.pneumoniae (PCR) NOT DETECTED Rory Human Metapneumo PCR NOT DETECTED Nasal M.pneumoniae (PCR) NOT DETECTED Nasal SARS-CoV-2 (PCR) NOT DETECTED Sepsis Event Note (H) Evaluation Current Stage of Sepsis: Ruled out Assessment/Plan Problem List (1) Polysubstance abuse: Impression: She has been in the hospital since 05/13/2025 UDS on presentation was positive for opiates, amphetamine, methamphetamine, cocaine She is out of the window for any acute withdrawal. She has not had any acute changes in her mental status for at least a week. 06/13: She is having some overall tenseness and hyperactivity, likely a psychomotor side effect of her polysubstance abuse. I am starting Suboxone 8-2 mg SL daily and will monitor for effect versus toxicity 05/20: She did not tolerate her dose of Suboxone very well. She was very lethargic through most of yesterday afternoon and is still only responding to pain. Last night I gave her a dose of Narcan with minimal effect. I gave her a liter of IV fluids and sent her for CT head out of an abundance of caution which showed no acute changes. I have discontinued her Suboxone, and I am keeping her on continuous pulse ox to watch for respiratory depression. I have Narcan ordered as needed. Chest x-ray was performed as she had some desaturation requiring 2 L O2. This showed no acute findings. 06/15: Her mentation is much improved today as the Suboxone is washing out of her system. As we do not stock smaller doses of Suboxone, we will likely not pursue this any further. She is back to her mentation as of a few days ago. Remains medically clear. Today is nonbillable rounding 06/16: No change in condition, no change in plan. (2) Altered mental status: Impression: Altered mentation likely secondary to polysubstance abuse UDS on presentation positive for opiates, amphetamine, methamphetamine, cocaine Patient was held in observation, and repeat CT and MRI were performed. MRI shows diffuse white matter hyperintense signal which may represent edema. Not the typical presentation of press Her altered mentation is not affected by her blood pressure, meaning it is not improved whenever her blood pressure is within normal limits Case discussed with neurology on 05/26, who recommended LP, but stated that this is likely sequela of hypoxic event from drug use. thiamine 500 mg IM 3 times daily started on 05 26,for 3 days, now on po thiamine daily 06/06 Daughter Ina made contact with RN. I also spoke with her, at this point, her mother's condition is sub acute. No need for interventions. Ina is aware her mother needs intermediate accountant care. She is willing to assist with this, but neither she, nor her mother have a safe place to live. Qualifiers: Altered mental status type: stupor Qualified Code(s): R40.1 - Stupor (3) Pubic bone fracture: Impression: X-ray hip on 05/25 shows moderately displaced right inferior pubic ramus fracture with extension in the medial acetabular column and suspicion for extension to the pelvic ring. Case was discussed with on-call orthopedist, who reports this is nonoperative. She is full weightbearing as tolerated and will need a walker at discharge. If her mentation improves, we will order PT jesús, currently not able to particpate with PT. She has been seen 1x for PT, no rehab potentential. She is getting to the chair daily with staff assistance (4) Malnutrition: Impression: Severe protein calorie malnutrition given obvious muscle wasting, loss of subcutaneous fat, bedridden. She is eatiing 100% of meals. BMI increased from 14.9 to 15.7. This is an improvmeent. This patient's diagnosis and treatment plan was discussed this AM with attending physician as a part of multi disciplinary rounding meeting. non billable rounding Qualifiers: Malnutrition type: unspecified type Qualified Code(s): E46 - Unspecified protein-calorie malnutrition
--- NOTE | 2025-07-26 16:46 | PROVIDER PROGRESS NOTE ---
Subjective Prog Note Date Prog Note Date: 07/26/25 Subjective Subjective: She is resting in bed, eyes open. When I come in, and animatedly announce myself, she says "shhhh" and put her finger to her lips. This is the most appropriate, and least reflexive response I have ever gotten from her. Current Medications Current Medications Current Medications: Current Medications Generic Name Dose Route Start Last Admin Trade Name Falguni PRN Reason Stop Dose Admin Acetaminophen 650 mg 05/21/25 14:24 07/24/25 08:15 Acetaminophen 325 Mg Tablet PO 650 mg Q4HR PRN Administration Pain 1 to 4, or Fever Apixaban 2.5 mg 05/29/25 21:00 07/26/25 07:56 Apixaban 2.5 Mg Tablet PO 2.5 mg BID WEST Administration Calcium Carbonate/Glycine 500 mg 06/04/25 09:00 07/26/25 07:56 Calcium Carbonate Chew 500 Mg Tablet PO 500 mg DAILY WEST Administration Cetirizine HCl 10 mg 07/06/25 11:37 07/24/25 08:14 Cetirizine 10 Mg Tablet PO 10 mg DAILY PRN Administration Allergy Symptoms Cholecalciferol 25 mcg 06/04/25 09:00 07/26/25 07:56 Cholecalciferol 25 Mcg Tablet PO 25 mcg DAILY WEST Administration Cyclobenzaprine HCl 10 mg 06/18/25 13:19 07/24/25 08:14 Cyclobenzaprine 10 Mg Tablet PO 10 mg TID PRN Administration Spasms Docusate Sodium 250 - 500 mg 07/02/25 10:35 Docusate Sodium 250 Mg Capsule PO DAILY PRN Constipation Naloxone HCl 0.4 mg 06/13/25 22:08 Naloxone 0.4 Mg/Ml Vial IVP Q10M PRN respiratory depression Polyethylene Glycol 17 gm 07/02/25 10:34 07/14/25 07:46 Polyethylene Glycol 3350 17 Gm Packet PO 17 gm DAILY PRN Administration Constipation Multivit/Folic Acid/Iron 1 tab 05/25/25 08:00 07/26/25 07:56 Vitamin Tablet PO 1 tab DAILYWM WEST Administration Sodium Chloride 10 ml 05/21/25 14:24 06/18/25 00:14 Sodium Chloride Flush 0.9% 10 Ml Syringe IVP 10 ml PRN PRN Administration NEEDED PER PROVIDER ORDERS Thiamine HCl 100 mg 05/30/25 09:00 07/26/25 07:56 Thiamine 100 Mg Tablet PO 100 mg DAILY WEST Administration Zinc Oxide 113 gm 06/28/25 12:00 07/24/25 20:34 Cod Liver Oil/Zinc Oxide 113 Gm Tube TOP 1 applic PRN PRN Administration Skin Care Objective Vital Signs/Intake & Output Reviewed Vital Signs: Yes Vital Signs: Vital Signs x48h Temp Pulse Resp BP Pulse Ox 07/26/25 09:00 36.6 C 105 H 24 146/93 H 97 Intake & Output: Intake & Output 07/23/25 07/24/25 07/25/25 07/26/25 23:59 23:59 23:59 23:59 Intake Total 1220 / 1220 1200 / 1200 1340 / 1340 600 / 600 Balance 1220 / 1220 1200 / 1200 1340 / 1340 600 / 600 Weight (kg) 45.5 kg Objective General Appearance: positive No acute distress Eyes Bilateral: positive Normal inspection ENT: positive ENT inspection nml Neck: positive Nml inspection Respiratory: positive No respiratory distress and Breath sounds nml Cardiovascular: positive Regular rate & rhythm Abdomen: positive No distention Skin: positive Color nml, No rash and Dry Extremities: positive Nml appearance and No pedal edema Neurologic/Psychiatric: positive Other (alert) Lab Results 06/27/25 16:37 06/27/25 16:37 Other Labs: Lab Results x24hrs 07/06/25 Range/Units 13:10 Nasal Adenovirus (PCR) NOT DETECTED Nasal B. parapertussis DNA (PCR) NOT DETECTED Nasal Coronavir 229E PCR NOT DETECTED Nasal Coronavir HKU1 PCR NOT DETECTED Nasal Coronavir NL63 PCR NOT DETECTED Nasal Coronavir OC43 PCR NOT DETECTED Nasal Enterovir/Rhinovir PCR NOT DETECTED Nasal Influenza B PCR NOT DETECTED Nasal Influenza A PCR NOT DETECTED Nasal Parainfluen 1 PCR NOT DETECTED Nasal Parainfluen 2 PCR NOT DETECTED Nasal Parainfluen 3 PCR NOT DETECTED Nasal Parainfluen 4 PCR NOT DETECTED Nasal RSV (PCR) NOT DETECTED Nasal B.pertussis DNA PCR NOT DETECTED Nasal C.pneumoniae (PCR) NOT DETECTED Rory Human Metapneumo PCR NOT DETECTED Nasal M.pneumoniae (PCR) NOT DETECTED Nasal SARS-CoV-2 (PCR) NOT DETECTED Sepsis Event Note (H) Evaluation Current Stage of Sepsis: Ruled out Assessment/Plan Problem List (1) Polysubstance abuse: Impression: She has been in the hospital since 05/13/2025 UDS on presentation was positive for opiates, amphetamine, methamphetamine, cocaine She is out of the window for any acute withdrawal. She has not had any acute changes in her mental status for at least a week. 06/13: She is having some overall tenseness and hyperactivity, likely a psychomotor side effect of her polysubstance abuse. I am starting Suboxone 8-2 mg SL daily and will monitor for effect versus toxicity 05/20: She did not tolerate her dose of Suboxone very well. She was very lethargic through most of yesterday afternoon and is still only responding to pain. Last night I gave her a dose of Narcan with minimal effect. I gave her a liter of IV fluids and sent her for CT head out of an abundance of caution which showed no acute changes. I have discontinued her Suboxone, and I am keeping her on continuous pulse ox to watch for respiratory depression. I have Narcan ordered as needed. Chest x-ray was performed as she had some desaturation requiring 2 L O2. This showed no acute findings. 06/15: Her mentation is much improved today as the Suboxone is washing out of her system. As we do not stock smaller doses of Suboxone, we will likely not pursue this any further. She is back to her mentation as of a few days ago. Remains medically clear. Today is nonbillable rounding 06/16: No change in condition, no change in plan. (2) Altered mental status: Impression: Altered mentation likely secondary to polysubstance abuse UDS on presentation positive for opiates, amphetamine, methamphetamine, cocaine Patient was held in observation, and repeat CT and MRI were performed. MRI shows diffuse white matter hyperintense signal which may represent edema. Not the typical presentation of press Her altered mentation is not affected by her blood pressure, meaning it is not improved whenever her blood pressure is within normal limits Case discussed with neurology on 05/26, who recommended LP, but stated that this is likely sequela of hypoxic event from drug use. thiamine 500 mg IM 3 times daily started on 05 26,for 3 days, now on po thiamine daily 06/06 Daughter Ina made contact with RN. I also spoke with her, at this point, her mother's condition is sub acute. No need for interventions. 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 She is willing to assist with this, but neither she, nor her mother have a safe place to live. Qualifiers: Altered mental status type: stupor Qualified Code(s): R40.1 - Stupor (3) Pubic bone fracture: Impression: X-ray hip on 05/25 shows moderately displaced right inferior pubic ramus fracture with extension in the medial acetabular column and suspicion for extension to the pelvic ring. Case was discussed with on-call orthopedist, who reports this is nonoperative. She is full weightbearing as tolerated and will need a walker at discharge. If her mentation improves, we will order PT evarturo, currently not able to particpate with PT. She has been seen 1x for PT, no rehab potentential. She is getting to the chair daily with staff assistance (4) Malnutrition: Impression: Severe protein calorie malnutrition given obvious muscle wasting, loss of subcutaneous fat, bedridden. She is eatiing 100% of meals. BMI increased from 14.9 to 15.7. This is an improvmeent. This patient's diagnosis and treatment plan was discussed this AM with attending physician as a part of multi disciplinary rounding meeting. non billable rounding Qualifiers: Malnutrition type: unspecified type Qualified Code(s): E46 - Unspecified protein-calorie malnutrition
--- NOTE | 2025-07-27 18:16 | PROVIDER PROGRESS NOTE ---
Subjective Prog Note Date Prog Note Date: 07/27/25 Subjective Subjective: She has been in bed all day. Chair is not in her room. otherwise, doing fine. RN reports ate 75% dinner but has had 100% of her other 2 meals. no other events. Current Medications Current Medications Current Medications: Current Medications Generic Name Dose Route Start Last Admin Trade Name Freq PRN Reason Stop Dose Admin Acetaminophen 650 mg 05/21/25 14:24 07/27/25 08:24 Acetaminophen 325 Mg Tablet PO 650 mg Q4HR PRN Administration Pain 1 to 4, or Fever Apixaban 2.5 mg 05/29/25 21:00 07/27/25 08:14 Apixaban 2.5 Mg Tablet PO 2.5 mg BID WEST Administration Calcium Carbonate/Glycine 500 mg 06/04/25 09:00 07/27/25 08:14 Calcium Carbonate Chew 500 Mg Tablet PO 500 mg DAILY WEST Administration Cetirizine HCl 10 mg 07/06/25 11:37 07/24/25 08:14 Cetirizine 10 Mg Tablet PO 10 mg DAILY PRN Administration Allergy Symptoms Cholecalciferol 25 mcg 06/04/25 09:00 07/27/25 08:14 Cholecalciferol 25 Mcg Tablet PO 25 mcg DAILY WEST Administration Cyclobenzaprine HCl 10 mg 06/18/25 13:19 07/27/25 02:09 Cyclobenzaprine 10 Mg Tablet PO 10 mg TID PRN Administration Spasms Docusate Sodium 250 - 500 mg 07/02/25 10:35 Docusate Sodium 250 Mg Capsule PO DAILY PRN Constipation Polyethylene Glycol 17 gm 07/02/25 10:34 07/14/25 07:46 Polyethylene Glycol 3350 17 Gm Packet PO 17 gm DAILY PRN Administration Constipation Multivit/Folic Acid/Iron 1 tab 05/25/25 08:00 07/27/25 08:14 Vitamin Tablet PO 1 tab DAILYWM WEST Administration Sodium Chloride 10 ml 05/21/25 14:24 06/18/25 00:14 Sodium Chloride Flush 0.9% 10 Ml Syringe IVP 10 ml PRN PRN Administration NEEDED PER PROVIDER ORDERS Thiamine HCl 100 mg 05/30/25 09:00 07/27/25 08:13 Thiamine 100 Mg Tablet PO 100 mg DAILY WEST Administration Zinc Oxide 113 gm 06/28/25 12:00 07/27/25 08:13 Cod Liver Oil/Zinc Oxide 113 Gm Tube TOP 1 applic PRN PRN Administration Skin Care Objective Vital Signs/Intake & Output Reviewed Vital Signs: Yes Vital Signs: Vital Signs x48h Temp Pulse Resp BP Pulse Ox 07/26/25 09:00 36.6 C 105 H 24 146/93 H 97 Intake & Output: Intake & Output 07/24/25 07/25/25 07/26/25 07/27/25 23:59 23:59 23:59 23:59 Intake Total 1200 / 1200 1340 / 1340 1080 / 1080 1700 / 1700 Balance 1200 / 1200 1340 / 1340 1080 / 1080 1700 / 1700 Weight (kg) 45.5 kg Objective General Appearance: positive No acute distress Eyes Bilateral: positive Normal inspection ENT: positive ENT inspection nml Neck: positive Nml inspection Respiratory: positive No respiratory distress and Breath sounds nml Cardiovascular: positive Regular rate & rhythm Abdomen: positive No distention Skin: positive Color nml, No rash and Dry Extremities: positive Nml appearance and No pedal edema Neurologic/Psychiatric: positive Other (alert) Lab Results 06/27/25 16:37 06/27/25 16:37 Other Labs: Lab Results x24hrs 07/06/25 Range/Units 13:10 Nasal Adenovirus (PCR) NOT DETECTED Nasal B. parapertussis DNA (PCR) NOT DETECTED Nasal Coronavir 229E PCR NOT DETECTED Nasal Coronavir HKU1 PCR NOT DETECTED Nasal Coronavir NL63 PCR NOT DETECTED Nasal Coronavir OC43 PCR NOT DETECTED Nasal Enterovir/Rhinovir PCR NOT DETECTED Nasal Influenza B PCR NOT DETECTED Nasal Influenza A PCR NOT DETECTED Nasal Parainfluen 1 PCR NOT DETECTED Nasal Parainfluen 2 PCR NOT DETECTED Nasal Parainfluen 3 PCR NOT DETECTED Nasal Parainfluen 4 PCR NOT DETECTED Nasal RSV (PCR) NOT DETECTED Nasal B.pertussis DNA PCR NOT DETECTED Nasal C.pneumoniae (PCR) NOT DETECTED Rory Human Metapneumo PCR NOT DETECTED Nasal M.pneumoniae (PCR) NOT DETECTED Nasal SARS-CoV-2 (PCR) NOT DETECTED Sepsis Event Note (H) Evaluation Current Stage of Sepsis: Ruled out Assessment/Plan Problem List (1) Polysubstance abuse: Impression: She has been in the hospital since 05/13/2025 UDS on presentation was positive for opiates, amphetamine, methamphetamine, cocaine She is out of the window for any acute withdrawal. She has not had any acute changes in her mental status for at least a week. 06/13: She is having some overall tenseness and hyperactivity, likely a psychomotor side effect of her polysubstance abuse. I am starting Suboxone 8-2 mg SL daily and will monitor for effect versus toxicity 05/20: She did not tolerate her dose of Suboxone very well. She was very lethargic through most of yesterday afternoon and is still only responding to pain. Last night I gave her a dose of Narcan with minimal effect. I gave her a liter of IV fluids and sent her for CT head out of an abundance of caution which showed no acute changes. I have discontinued her Suboxone, and I am keeping her on continuous pulse ox to watch for respiratory depression. I have Narcan ordered as needed. Chest x-ray was performed as she had some desaturation requiring 2 L O2. This showed no acute findings. 06/15: Her mentation is much improved today as the Suboxone is washing out of her system. As we do not stock smaller doses of Suboxone, we will likely not pursue this any further. She is back to her mentation as of a few days ago. Remains medically clear. Today is nonbillable rounding 06/16: No change in condition, no change in plan. (2) Altered mental status: Impression: Altered mentation likely secondary to polysubstance abuse UDS on presentation positive for opiates, amphetamine, methamphetamine, cocaine Patient was held in observation, and repeat CT and MRI were performed. MRI shows diffuse white matter hyperintense signal which may represent edema. Not the typical presentation of press Her altered mentation is not affected by her blood pressure, meaning it is not improved whenever her blood pressure is within normal limits Case discussed with neurology on 05/26, who recommended LP, but stated that this is likely sequela of hypoxic event from drug use. thiamine 500 mg IM 3 times daily started on 05 26,for 3 days, now on po thiamine daily 06/06 Daughter Ina made contact with RN. I also spoke with her, at this point, her mother's condition is sub acute. No need for interventions. 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 She is willing to assist with this, but neither she, nor her mother have a safe place to live. Qualifiers: Altered mental status type: stupor Qualified Code(s): R40.1 - Stupor (3) Pubic bone fracture: Impression: X-ray hip on 05/25 shows moderately displaced right inferior pubic ramus fracture with extension in the medial acetabular column and suspicion for extension to the pelvic ring. Case was discussed with on-call orthopedist, who reports this is nonoperative. She is full weightbearing as tolerated and will need a walker at discharge. If her mentation improves, we will order PT jesús, currently not able to particpate with PT. She has been seen 1x for PT, no rehab potentential. She is getting to the chair daily with staff assistance (4) Malnutrition: Impression: Severe protein calorie malnutrition given obvious muscle wasting, loss of subcutaneous fat, bedridden. She is eatiing 100% of meals. BMI increased from 14.9 to 15.7 to 16.2. This is an improvement. reviewed today's wound care photos, sacral skin is intact. This patient's diagnosis and treatment plan was discussed this AM with attending physician as a part of multi disciplinary rounding meeting. non billable rounding Qualifiers: Malnutrition type: unspecified type Qualified Code(s): E46 - Unspecified protein-calorie malnutrition
--- NOTE | 2025-07-28 20:34 | PROVIDER PROGRESS NOTE ---
Subjective Prog Note Date Prog Note Date: 07/28/25 Subjective Subjective: Did not want to eat dinner tonight, but ate well otherwise. Ate a whole cup of pudding w meds tonight. Current Medications Current Medications Current Medications: Current Medications Generic Name Dose Route Start Last Admin Trade Name Freq PRN Reason Stop Dose Admin Acetaminophen 650 mg 05/21/25 14:24 07/28/25 17:52 Acetaminophen 325 Mg Tablet PO 650 mg Q4HR PRN Administration Pain 1 to 4, or Fever Apixaban 2.5 mg 05/29/25 21:00 07/28/25 08:28 Apixaban 2.5 Mg Tablet PO 2.5 mg BID WEST Administration Calcium Carbonate/Glycine 500 mg 06/04/25 09:00 07/28/25 08:28 Calcium Carbonate Chew 500 Mg Tablet PO 500 mg DAILY WEST Administration Cetirizine HCl 10 mg 07/06/25 11:37 07/24/25 08:14 Cetirizine 10 Mg Tablet PO 10 mg DAILY PRN Administration Allergy Symptoms Cholecalciferol 25 mcg 06/04/25 09:00 07/28/25 08:28 Cholecalciferol 25 Mcg Tablet PO 25 mcg DAILY WEST Administration Cyclobenzaprine HCl 10 mg 06/18/25 13:19 07/27/25 02:09 Cyclobenzaprine 10 Mg Tablet PO 10 mg TID PRN Administration Spasms Docusate Sodium 250 - 500 mg 07/02/25 10:35 Docusate Sodium 250 Mg Capsule PO DAILY PRN Constipation Polyethylene Glycol 17 gm 07/02/25 10:34 07/14/25 07:46 Polyethylene Glycol 3350 17 Gm Packet PO 17 gm DAILY PRN Administration Constipation Multivit/Folic Acid/Iron 1 tab 05/25/25 08:00 07/28/25 08:28 Vitamin Tablet PO 1 tab DAILYWM WEST Administration Sodium Chloride 10 ml 05/21/25 14:24 06/18/25 00:14 Sodium Chloride Flush 0.9% 10 Ml Syringe IVP 10 ml PRN PRN Administration NEEDED PER PROVIDER ORDERS Thiamine HCl 100 mg 05/30/25 09:00 07/28/25 08:28 Thiamine 100 Mg Tablet PO 100 mg DAILY WEST Administration Zinc Oxide 113 gm 06/28/25 12:00 07/28/25 08:28 Cod Liver Oil/Zinc Oxide 113 Gm Tube TOP 1 applic PRN PRN Administration Skin Care Objective Vital Signs/Intake & Output Reviewed Vital Signs: Yes Vital Signs: Vital Signs x48h Temp Pulse Resp BP Pulse Ox 07/26/25 09:00 36.6 C 105 H 24 146/93 H 97 Intake & Output: Intake & Output 07/25/25 07/26/25 07/27/25 07/28/25 23:59 23:59 23:59 23:59 Intake Total 1340 / 1340 1080 / 1080 1900 / 1900 510 / 510 Balance 1340 / 1340 1080 / 1080 1900 / 1900 510 / 510 Weight (kg) 45.5 kg Objective General Appearance: positive No acute distress Eyes Bilateral: positive Normal inspection ENT: positive ENT inspection nml Neck: positive Nml inspection Respiratory: positive No respiratory distress and Breath sounds nml Cardiovascular: positive Regular rate & rhythm Abdomen: positive No distention Skin: positive Color nml, No rash and Dry Extremities: positive Nml appearance and No pedal edema Neurologic/Psychiatric: positive Other (alert) Lab Results 06/27/25 16:37 06/27/25 16:37 Other Labs: Lab Results x24hrs 07/06/25 Range/Units 13:10 Nasal Adenovirus (PCR) NOT DETECTED Nasal B. parapertussis DNA (PCR) NOT DETECTED Nasal Coronavir 229E PCR NOT DETECTED Nasal Coronavir HKU1 PCR NOT DETECTED Nasal Coronavir NL63 PCR NOT DETECTED Nasal Coronavir OC43 PCR NOT DETECTED Nasal Enterovir/Rhinovir PCR NOT DETECTED Nasal Influenza B PCR NOT DETECTED Nasal Influenza A PCR NOT DETECTED Nasal Parainfluen 1 PCR NOT DETECTED Nasal Parainfluen 2 PCR NOT DETECTED Nasal Parainfluen 3 PCR NOT DETECTED Nasal Parainfluen 4 PCR NOT DETECTED Nasal RSV (PCR) NOT DETECTED Nasal B.pertussis DNA PCR NOT DETECTED Nasal C.pneumoniae (PCR) NOT DETECTED Rory Human Metapneumo PCR NOT DETECTED Nasal M.pneumoniae (PCR) NOT DETECTED Nasal SARS-CoV-2 (PCR) NOT DETECTED Sepsis Event Note (H) Evaluation Current Stage of Sepsis: Ruled out Assessment/Plan Problem List (1) Polysubstance abuse: Impression: She has been in the hospital since 05/13/2025 UDS on presentation was positive for opiates, amphetamine, methamphetamine, cocaine She is out of the window for any acute withdrawal. She has not had any acute changes in her mental status for at least a week. 7/26: She is having some overall tenseness and hyperactivity, likely a psychomotor side effect of her polysubstance abuse. I am starting Suboxone 8-2 mg SL daily and will monitor for effect versus toxicity 05/20: She did not tolerate her dose of Suboxone very well. She was very lethargic through most of yesterday afternoon and is still only responding to pain. Last night I gave her a dose of Narcan with minimal effect. I gave her a liter of IV fluids and sent her for CT head out of an abundance of caution which showed no acute changes. I have discontinued her Suboxone, and I am keeping her on continuous pulse ox to watch for respiratory depression. I have Narcan ordered as needed. Chest x-ray was performed as she had some desaturation requiring 2 L O2. This showed no acute findings. 06/15: Her mentation is much improved today as the Suboxone is washing out of her system. As we do not stock smaller doses of Suboxone, we will likely not pursue this any further. She is back to her mentation as of a few days ago. Remains medically clear. Today is nonbillable rounding 06/16: No change in condition, no change in plan. (2) Altered mental status: Impression: Altered mentation likely secondary to polysubstance abuse UDS on presentation positive for opiates, amphetamine, methamphetamine, cocaine Patient was held in observation, and repeat CT and MRI were performed. MRI shows diffuse white matter hyperintense signal which may represent edema. Not the typical presentation of press Her altered mentation is not affected by her blood pressure, meaning it is not improved whenever her blood pressure is within normal limits Case discussed with neurology on 05/26, who recommended LP, but stated that this is likely sequela of hypoxic event from drug use. thiamine 500 mg IM 3 times daily started on 05 26,for 3 days, now on po thiamine daily 06/06 Daughter Ina made contact with RN. I also spoke with her, at this point, her mother's condition is sub acute. No need for interventions. Ina is aware her mother needs jail care. She is willing to assist with this, but neither she, nor her mother have a safe place to live. Qualifiers: Altered mental status type: stupor Qualified Code(s): R40.1 - Stupor (3) Pubic bone fracture: Impression: X-ray hip on 05/25 shows moderately displaced right inferior pubic ramus fracture with extension in the medial acetabular column and suspicion for extension to the pelvic ring. Case was discussed with on-call orthopedist, who reports this is nonoperative. She is full weightbearing as tolerated and will need a walker at discharge. If her mentation improves, we will order PT eval, currently not able to particpate with PT. She has been seen 1x for PT, no rehab potentential. She is getting to the chair daily with staff assistance (4) Malnutrition: Impression: Severe protein calorie malnutrition given obvious muscle wasting, loss of subcutaneous fat, bedridden. She is eatiing 100% of meals, with occasional exception. BMI increased from 14.9 to 15.7 to 16.2. This is an improvement. This patient's diagnosis and treatment plan was discussed this AM with attending physician as a part of multi disciplinary rounding meeting. non billable rounding Qualifiers: Malnutrition type: unspecified type Qualified Code(s): E46 - Unspecified protein-calorie malnutrition
--- NOTE | 2025-07-29 13:29 | PROVIDER PROGRESS NOTE ---
Subjective Prog Note Date Prog Note Date: 07/29/25 Subjective Pt reports feeling: No change Current Medications Current Medications Current Medications: Current Medications Generic Name Dose Route Start Last Admin Trade Name Falguni PRN Reason Stop Dose Admin Acetaminophen 650 mg 05/21/25 14:24 07/29/25 08:37 Acetaminophen 325 Mg Tablet PO 650 mg Q4HR PRN Administration Pain 1 to 4, or Fever Apixaban 2.5 mg 05/29/25 21:00 07/29/25 08:37 Apixaban 2.5 Mg Tablet PO 2.5 mg BID WEST Administration Calcium Carbonate/Glycine 500 mg 06/04/25 09:00 07/29/25 08:37 Calcium Carbonate Chew 500 Mg Tablet PO 500 mg DAILY WEST Administration Cetirizine HCl 10 mg 07/06/25 11:37 07/24/25 08:14 Cetirizine 10 Mg Tablet PO 10 mg DAILY PRN Administration Allergy Symptoms Cholecalciferol 25 mcg 06/04/25 09:00 07/29/25 08:37 Cholecalciferol 25 Mcg Tablet PO 25 mcg DAILY WEST Administration Cyclobenzaprine HCl 10 mg 06/18/25 13:19 07/27/25 02:09 Cyclobenzaprine 10 Mg Tablet PO 10 mg TID PRN Administration Spasms Docusate Sodium 250 - 500 mg 07/02/25 10:35 Docusate Sodium 250 Mg Capsule PO DAILY PRN Constipation Polyethylene Glycol 17 gm 07/02/25 10:34 07/14/25 07:46 Polyethylene Glycol 3350 17 Gm Packet PO 17 gm DAILY PRN Administration Constipation Multivit/Folic Acid/Iron 1 tab 05/25/25 08:00 07/29/25 08:37 Vitamin Tablet PO 1 tab DAILYWM WEST Administration Sodium Chloride 10 ml 05/21/25 14:24 06/18/25 00:14 Sodium Chloride Flush 0.9% 10 Ml Syringe IVP 10 ml PRN PRN Administration NEEDED PER PROVIDER ORDERS Thiamine HCl 100 mg 05/30/25 09:00 07/29/25 08:37 Thiamine 100 Mg Tablet PO 100 mg DAILY WEST Administration Zinc Oxide 113 gm 06/28/25 12:00 07/28/25 08:28 Cod Liver Oil/Zinc Oxide 113 Gm Tube TOP 1 applic PRN PRN Administration Skin Care Objective Vital Signs/Intake & Output Reviewed Vital Signs: Yes Vital Signs: Vital Signs x48h Temp Pulse Resp BP Pulse Ox 07/29/25 09:00 36.5 C 88 18 167/96 H 95 Intake & Output: Intake & Output 07/26/25 07/27/25 07/28/25 07/29/25 23:59 23:59 23:59 23:59 Intake Total 1080 / 1080 1900 / 1900 510 / 510 1080 / 1080 Balance 1080 / 1080 1900 / 1900 510 / 510 1080 / 1080 Objective General Appearance: positive No acute distress Eyes Bilateral: positive Normal inspection ENT: positive ENT inspection nml Neck: positive Nml inspection Respiratory: positive No respiratory distress and Breath sounds nml Cardiovascular: positive Regular rate & rhythm Abdomen: positive No distention Skin: positive Color nml, No rash and Dry Extremities: positive Nml appearance and No pedal edema Neurologic/Psychiatric: positive Other (alert) Lab Results 06/27/25 16:37 06/27/25 16:37 Other Labs: Lab Results x24hrs 07/06/25 Range/Units 13:10 Nasal Adenovirus (PCR) NOT DETECTED Nasal B. parapertussis DNA (PCR) NOT DETECTED Nasal Coronavir 229E PCR NOT DETECTED Nasal Coronavir HKU1 PCR NOT DETECTED Nasal Coronavir NL63 PCR NOT DETECTED Nasal Coronavir OC43 PCR NOT DETECTED Nasal Enterovir/Rhinovir PCR NOT DETECTED Nasal Influenza B PCR NOT DETECTED Nasal Influenza A PCR NOT DETECTED Nasal Parainfluen 1 PCR NOT DETECTED Nasal Parainfluen 2 PCR NOT DETECTED Nasal Parainfluen 3 PCR NOT DETECTED Nasal Parainfluen 4 PCR NOT DETECTED Nasal RSV (PCR) NOT DETECTED Nasal B.pertussis DNA PCR NOT DETECTED Nasal C.pneumoniae (PCR) NOT DETECTED Rory Human Metapneumo PCR NOT DETECTED Nasal M.pneumoniae (PCR) NOT DETECTED Nasal SARS-CoV-2 (PCR) NOT DETECTED Sepsis Event Note (H) Evaluation Current Stage of Sepsis: Ruled out Assessment/Plan Problem List (1) Polysubstance abuse: Impression: She has been in the hospital since 05/13/2025 UDS on presentation was positive for opiates, amphetamine, methamphetamine, cocaine She is out of the window for any acute withdrawal. She has not had any acute changes in her mental status for at least a week. 06/13: She is having some overall tenseness and hyperactivity, likely a psychomotor side effect of her polysubstance abuse. I am starting Suboxone 8-2 mg SL daily and will monitor for effect versus toxicity 05/20: She did not tolerate her dose of Suboxone very well. She was very lethargic through most of yesterday afternoon and is still only responding to pain. Last night I gave her a dose of Narcan with minimal effect. I gave her a liter of IV fluids and sent her for CT head out of an abundance of caution which showed no acute changes. I have discontinued her Suboxone, and I am keeping her on continuous pulse ox to watch for respiratory depression. I have Narcan ordered as needed. Chest x-ray was performed as she had some desaturation requiring 2 L O2. This showed no acute findings. 06/15: Her mentation is much improved today as the Suboxone is washing out of her system. As we do not stock smaller doses of Suboxone, we will likely not pursue this any further. She is back to her mentation as of a few days ago. Remains medically clear. Today is nonbillable rounding 06/16: No change in condition, no change in plan. (2) Altered mental status: Impression: Altered mentation likely secondary to polysubstance abuse UDS on presentation positive for opiates, amphetamine, methamphetamine, cocaine Patient was held in observation, and repeat CT and MRI were performed. MRI shows diffuse white matter hyperintense signal which may represent edema. Not the typical presentation of press Her altered mentation is not affected by her blood pressure, meaning it is not improved whenever her blood pressure is within normal limits Case discussed with neurology on 05/26, who recommended LP, but stated that this is likely sequela of hypoxic event from drug use. thiamine 500 mg IM 3 times daily started on 05 26,for 3 days, now on po thiamine daily 06/06 Daughter Ina made contact with RN. I also spoke with her, at this point, her mother's condition is sub acute. No need for interventions. Ina is aware her mother needs correction care. She is willing to assist with this, but neither she, nor her mother have a safe place to live. Qualifiers: Altered mental status type: stupor Qualified Code(s): R40.1 - Stupor (3) Pubic bone fracture: Impression: X-ray hip on 05/25 shows moderately displaced right inferior pubic ramus fracture with extension in the medial acetabular column and suspicion for extension to the pelvic ring. Case was discussed with on-call orthopedist, who reports this is nonoperative. She is full weightbearing as tolerated and will need a walker at discharge. If her mentation improves, we will order PT jesús, currently not able to particpate with PT. She has been seen 1x for PT, no rehab potentential. She is getting to the chair daily with staff assistance (4) Malnutrition: Impression: Severe protein calorie malnutrition given obvious muscle wasting, loss of subcutaneous fat, bedridden. She is eatiing 100% of meals, with occasional exception. BMI increased from 14.9 to 15.7 to 16.2. This is an improvement. This patient's diagnosis and treatment plan was discussed this AM with attending physician as a part of multi disciplinary rounding meeting. non billable rounding Qualifiers: Malnutrition type: unspecified type Qualified Code(s): E46 - Unspecified protein-calorie malnutrition
--- NOTE | 2025-07-30 11:05 | PROVIDER PROGRESS NOTE ---
Subjective Prog Note Date Prog Note Date: 07/30/25 Subjective Pt reports feeling: No change Current Medications Current Medications Current Medications: Current Medications Generic Name Dose Route Start Last Admin Trade Name Falguni PRN Reason Stop Dose Admin Acetaminophen 650 mg 05/21/25 14:24 07/29/25 08:37 Acetaminophen 325 Mg Tablet PO 650 mg Q4HR PRN Administration Pain 1 to 4, or Fever Apixaban 2.5 mg 05/29/25 21:00 07/30/25 08:12 Apixaban 2.5 Mg Tablet PO 2.5 mg BID WEST Administration Calcium Carbonate/Glycine 500 mg 06/04/25 09:00 07/30/25 08:12 Calcium Carbonate Chew 500 Mg Tablet PO 500 mg DAILY WEST Administration Cetirizine HCl 10 mg 07/06/25 11:37 07/24/25 08:14 Cetirizine 10 Mg Tablet PO 10 mg DAILY PRN Administration Allergy Symptoms Cholecalciferol 25 mcg 06/04/25 09:00 07/30/25 08:12 Cholecalciferol 25 Mcg Tablet PO 25 mcg DAILY WEST Administration Cyclobenzaprine HCl 10 mg 06/18/25 13:19 07/27/25 02:09 Cyclobenzaprine 10 Mg Tablet PO 10 mg TID PRN Administration Spasms Docusate Sodium 250 - 500 mg 07/02/25 10:35 Docusate Sodium 250 Mg Capsule PO DAILY PRN Constipation Polyethylene Glycol 17 gm 07/02/25 10:34 07/14/25 07:46 Polyethylene Glycol 3350 17 Gm Packet PO 17 gm DAILY PRN Administration Constipation Multivit/Folic Acid/Iron 1 tab 05/25/25 08:00 07/30/25 08:12 Vitamin Tablet PO 1 tab DAILYWM WEST Administration Sodium Chloride 10 ml 05/21/25 14:24 06/18/25 00:14 Sodium Chloride Flush 0.9% 10 Ml Syringe IVP 10 ml PRN PRN Administration NEEDED PER PROVIDER ORDERS Thiamine HCl 100 mg 05/30/25 09:00 07/30/25 08:12 Thiamine 100 Mg Tablet PO 100 mg DAILY WEST Administration Zinc Oxide 113 gm 06/28/25 12:00 07/30/25 08:12 Cod Liver Oil/Zinc Oxide 113 Gm Tube TOP 1 applic PRN PRN Administration Skin Care Objective Vital Signs/Intake & Output Reviewed Vital Signs: Yes Vital Signs: Vital Signs x48h Temp Pulse Resp BP Pulse Ox 07/30/25 08:12 36.5 C 108 H 20 144/94 H 97 Intake & Output: Intake & Output 07/27/25 07/28/25 07/29/25 07/30/25 23:59 23:59 23:59 23:59 Intake Total 1900 / 1900 510 / 510 1400 / 1400 120 / 120 Balance 1900 / 1900 510 / 510 1400 / 1400 120 / 120 Objective General Appearance: positive No acute distress Eyes Bilateral: positive Normal inspection ENT: positive ENT inspection nml Neck: positive Nml inspection Respiratory: positive No respiratory distress and Breath sounds nml Cardiovascular: positive Regular rate & rhythm Abdomen: positive No distention Skin: positive Color nml, No rash and Dry Extremities: positive Nml appearance and No pedal edema Neurologic/Psychiatric: positive Other (alert) Lab Results 06/27/25 16:37 06/27/25 16:37 Other Labs: Lab Results x24hrs 07/06/25 Range/Units 13:10 Nasal Adenovirus (PCR) NOT DETECTED Nasal B. parapertussis DNA (PCR) NOT DETECTED Nasal Coronavir 229E PCR NOT DETECTED Nasal Coronavir HKU1 PCR NOT DETECTED Nasal Coronavir NL63 PCR NOT DETECTED Nasal Coronavir OC43 PCR NOT DETECTED Nasal Enterovir/Rhinovir PCR NOT DETECTED Nasal Influenza B PCR NOT DETECTED Nasal Influenza A PCR NOT DETECTED Nasal Parainfluen 1 PCR NOT DETECTED Nasal Parainfluen 2 PCR NOT DETECTED Nasal Parainfluen 3 PCR NOT DETECTED Nasal Parainfluen 4 PCR NOT DETECTED Nasal RSV (PCR) NOT DETECTED Nasal B.pertussis DNA PCR NOT DETECTED Nasal C.pneumoniae (PCR) NOT DETECTED Rory Human Metapneumo PCR NOT DETECTED Nasal M.pneumoniae (PCR) NOT DETECTED Nasal SARS-CoV-2 (PCR) NOT DETECTED Sepsis Event Note (H) Evaluation Current Stage of Sepsis: Ruled out Assessment/Plan Problem List (1) Polysubstance abuse: Impression: She has been in the hospital since 05/13/2025 UDS on presentation was positive for opiates, amphetamine, methamphetamine, cocaine She is out of the window for any acute withdrawal. She has not had any acute changes in her mental status for at least a week. 06/13: She is having some overall tenseness and hyperactivity, likely a psychomotor side effect of her polysubstance abuse. I am starting Suboxone 8-2 mg SL daily and will monitor for effect versus toxicity 05/20 7: She did not tolerate her dose of Suboxone very well. She was very lethargic through most of yesterday afternoon and is still only responding to pain. Last night I gave her a dose of Narcan with minimal effect. I gave her a liter of IV fluids and sent her for CT head out of an abundance of caution which showed no acute changes. I have discontinued her Suboxone, and I am keeping her on continuous pulse ox to watch for respiratory depression. I have Narcan ordered as needed. Chest x-ray was performed as she had some desaturation requiring 2 L O2. This showed no acute findings. 06/15: Her mentation is much improved today as the Suboxone is washing out of her system. As we do not stock smaller doses of Suboxone, we will likely not pursue this any further. She is back to her mentation as of a few days ago. Remains medically clear. Today is nonbillable rounding 06/16: No change in condition, no change in plan. (2) Altered mental status: Impression: Altered mentation likely secondary to polysubstance abuse UDS on presentation positive for opiates, amphetamine, methamphetamine, cocaine Patient was held in observation, and repeat CT and MRI were performed. MRI shows diffuse white matter hyperintense signal which may represent edema. Not the typical presentation of press Her altered mentation is not affected by her blood pressure, meaning it is not improved whenever her blood pressure is within normal limits Case discussed with neurology on 05/26, who recommended LP, but stated that this is likely sequela of hypoxic event from drug use. thiamine 500 mg IM 3 times daily started on 05 26,for 3 days, now on po thiamine daily 06/06 Daughter Ina made contact with RN. I also spoke with her, at this point, her mother's condition is sub acute. No need for interventions. Ina is aware her mother needs terminal carman care. She is willing to assist with this, but neither she, nor her mother have a safe place to live. Qualifiers: Altered mental status type: stupor Qualified Code(s): R40.1 - Stupor (3) Pubic bone fracture: Impression: X-ray hip on 05/25 shows moderately displaced right inferior pubic ramus fracture with extension in the medial acetabular column and suspicion for extension to the pelvic ring. Case was discussed with on-call orthopedist, who reports this is nonoperative. She is full weightbearing as tolerated and will need a walker at discharge. If her mentation improves, we will order PT jesús, currently not able to particpate with PT. She has been seen 1x for PT, no rehab potentential. She is getting to the chair daily with staff assistance (4) Malnutrition: Impression: Severe protein calorie malnutrition given obvious muscle wasting, loss of subcutaneous fat, bedridden. She is eatiing 100% of meals, with occasional exception. BMI increased from 14.9 to 15.7 to 16.2. This is an improvement. This patient's diagnosis and treatment plan was discussed this AM with attending physician as a part of multi disciplinary rounding meeting. non billable rounding Qualifiers: Malnutrition type: unspecified type Qualified Code(s): E46 - Unspecified protein-calorie malnutrition
--- NOTE | 2025-07-31 10:53 | PROVIDER PROGRESS NOTE ---
Subjective Prog Note Date Prog Note Date: 07/31/25 Subjective Pt reports feeling: No change Current Medications Current Medications Current Medications: Current Medications Generic Name Dose Route Start Last Admin Trade Name Falguni PRN Reason Stop Dose Admin Acetaminophen 650 mg 05/21/25 14:24 07/29/25 08:37 Acetaminophen 325 Mg Tablet PO 650 mg Q4HR PRN Administration Pain 1 to 4, or Fever Apixaban 2.5 mg 05/29/25 21:00 07/31/25 08:21 Apixaban 2.5 Mg Tablet PO 2.5 mg BID WEST Administration Calcium Carbonate/Glycine 500 mg 06/04/25 09:00 07/31/25 08:21 Calcium Carbonate Chew 500 Mg Tablet PO 500 mg DAILY WEST Administration Cetirizine HCl 10 mg 07/06/25 11:37 07/24/25 08:14 Cetirizine 10 Mg Tablet PO 10 mg DAILY PRN Administration Allergy Symptoms Cholecalciferol 25 mcg 06/04/25 09:00 07/31/25 08:21 Cholecalciferol 25 Mcg Tablet PO 25 mcg DAILY WEST Administration Cyclobenzaprine HCl 10 mg 06/18/25 13:19 07/31/25 09:17 Cyclobenzaprine 10 Mg Tablet PO 10 mg TID PRN Administration Spasms Docusate Sodium 250 - 500 mg 07/02/25 10:35 Docusate Sodium 250 Mg Capsule PO DAILY PRN Constipation Polyethylene Glycol 17 gm 07/02/25 10:34 07/14/25 07:46 Polyethylene Glycol 3350 17 Gm Packet PO 17 gm DAILY PRN Administration Constipation Multivit/Folic Acid/Iron 1 tab 05/25/25 08:00 07/31/25 08:21 Vitamin Tablet PO 1 tab DAILYWM WEST Administration Sodium Chloride 10 ml 05/21/25 14:24 06/18/25 00:14 Sodium Chloride Flush 0.9% 10 Ml Syringe IVP 10 ml PRN PRN Administration NEEDED PER PROVIDER ORDERS Thiamine HCl 100 mg 05/30/25 09:00 07/31/25 08:21 Thiamine 100 Mg Tablet PO 100 mg DAILY WEST Administration Zinc Oxide 113 gm 06/28/25 12:00 07/31/25 09:17 Cod Liver Oil/Zinc Oxide 113 Gm Tube TOP 1 applic PRN PRN Administration Skin Care Objective Vital Signs/Intake & Output Reviewed Vital Signs: Yes Vital Signs: Vital Signs x48h Temp Pulse Resp BP Pulse Ox 07/31/25 08:20 36.6 C 119 H 20 139/97 H 96 Intake & Output: Intake & Output 07/28/25 07/29/25 07/30/25 07/31/25 23:59 23:59 23:59 23:59 Intake Total 510 / 510 1400 / 1400 800 / 800 120 / 120 Balance 510 / 510 1400 / 1400 800 / 800 120 / 120 Objective General Appearance: positive No acute distress Eyes Bilateral: positive Normal inspection ENT: positive ENT inspection nml Neck: positive Nml inspection Respiratory: positive No respiratory distress and Breath sounds nml Cardiovascular: positive Regular rate & rhythm Abdomen: positive No distention Skin: positive Color nml, No rash and Dry Extremities: positive Nml appearance and No pedal edema Neurologic/Psychiatric: positive Other (alert) Lab Results 06/27/25 16:37 06/27/25 16:37 Other Labs: Lab Results x24hrs 07/06/25 Range/Units 13:10 Nasal Adenovirus (PCR) NOT DETECTED Nasal B. parapertussis DNA (PCR) NOT DETECTED Nasal Coronavir 229E PCR NOT DETECTED Nasal Coronavir HKU1 PCR NOT DETECTED Nasal Coronavir NL63 PCR NOT DETECTED Nasal Coronavir OC43 PCR NOT DETECTED Nasal Enterovir/Rhinovir PCR NOT DETECTED Nasal Influenza B PCR NOT DETECTED Nasal Influenza A PCR NOT DETECTED Nasal Parainfluen 1 PCR NOT DETECTED Nasal Parainfluen 2 PCR NOT DETECTED Nasal Parainfluen 3 PCR NOT DETECTED Nasal Parainfluen 4 PCR NOT DETECTED Nasal RSV (PCR) NOT DETECTED Nasal B.pertussis DNA PCR NOT DETECTED Nasal C.pneumoniae (PCR) NOT DETECTED Rory Human Metapneumo PCR NOT DETECTED Nasal M.pneumoniae (PCR) NOT DETECTED Nasal SARS-CoV-2 (PCR) NOT DETECTED Sepsis Event Note (H) Evaluation Current Stage of Sepsis: Ruled out Assessment/Plan Problem List (1) Polysubstance abuse: Impression: She has been in the hospital since 05/13/2025 UDS on presentation was positive for opiates, amphetamine, methamphetamine, cocaine She is out of the window for any acute withdrawal. She has not had any acute changes in her mental status for at least a week. 06/13: She is having some overall tenseness and hyperactivity, likely a psychomotor side effect of her polysubstance abuse. I am starting Suboxone 8-2 mg SL daily and will monitor for effect versus toxicity 05/20: She did not tolerate her dose of Suboxone very well. She was very lethargic through most of yesterday afternoon and is still only responding to pain. Last night I gave her a dose of Narcan with minimal effect. I gave her a liter of IV fluids and sent her for CT head out of an abundance of caution which showed no acute changes. I have discontinued her Suboxone, and I am keeping her on continuous pulse ox to watch for respiratory depression. I have Narcan ordered as needed. Chest x-ray was performed as she had some desaturation requiring 2 L O2. This showed no acute findings. 06/15: Her mentation is much improved today as the Suboxone is washing out of her system. As we do not stock smaller doses of Suboxone, we will likely not pursue this any further. She is back to her mentation as of a few days ago. Remains medically clear. Today is nonbillable rounding 06/16: No change in condition, no change in plan. (2) Altered mental status: Impression: Altered mentation likely secondary to polysubstance abuse UDS on presentation positive for opiates, amphetamine, methamphetamine, cocaine Patient was held in observation, and repeat CT and MRI were performed. MRI shows diffuse white matter hyperintense signal which may represent edema. Not the typical presentation of press Her altered mentation is not affected by her blood pressure, meaning it is not improved whenever her blood pressure is within normal limits Case discussed with neurology on 05/26, who recommended LP, but stated that this is likely sequela of hypoxic event from drug use. thiamine 500 mg IM 3 times daily started on 05 26,for 3 days, now on po thiamine daily 06/06 Daughter Ina made contact with RN. I also spoke with her, at this point, her mother's condition is sub acute. No need for interventions. Ina is aware her mother needs care home care. She is willing to assist with this, but neither she, nor her mother have a safe place to live. Qualifiers: Altered mental status type: stupor Qualified Code(s): R40.1 - Stupor (3) Pubic bone fracture: Impression: X-ray hip on 05/25 shows moderately displaced right inferior pubic ramus fracture with extension in the medial acetabular column and suspicion for extension to the pelvic ring. Case was discussed with on-call orthopedist, who reports this is nonoperative. She is full weightbearing as tolerated and will need a walker at discharge. If her mentation improves, we will order PT jesús, currently not able to particpate with PT. She has been seen 1x for PT, no rehab potentential. She is getting to the chair daily with staff assistance (4) Malnutrition: Impression: Severe protein calorie malnutrition given obvious muscle wasting, loss of subcutaneous fat, bedridden. She is eatiing 100% of meals, with occasional exception. BMI increased from 14.9 to 15.7 to 16.2. This is an improvement. This patient's diagnosis and treatment plan was discussed this AM with attending physician as a part of multi disciplinary rounding meeting. non billable rounding Qualifiers: Malnutrition type: unspecified type Qualified Code(s): E46 - Unspecified protein-calorie malnutrition
--- NOTE | 2025-08-01 11:32 | PROVIDER PROGRESS NOTE ---
Subjective Prog Note Date Prog Note Date: 08/01/25 Subjective Pt reports feeling: No change Current Medications Current Medications Current Medications: Current Medications Generic Name Dose Route Start Last Admin Trade Name Falguni PRN Reason Stop Dose Admin Acetaminophen 650 mg 05/21/25 14:24 08/01/25 08:12 Acetaminophen 325 Mg Tablet PO 650 mg Q4HR PRN Administration Pain 1 to 4, or Fever Apixaban 2.5 mg 05/29/25 21:00 08/01/25 08:12 Apixaban 2.5 Mg Tablet PO 2.5 mg BID WEST Administration Calcium Carbonate/Glycine 500 mg 06/04/25 09:00 08/01/25 08:12 Calcium Carbonate Chew 500 Mg Tablet PO 500 mg DAILY WEST Administration Cetirizine HCl 10 mg 07/06/25 11:37 07/24/25 08:14 Cetirizine 10 Mg Tablet PO 10 mg DAILY PRN Administration Allergy Symptoms Cholecalciferol 25 mcg 06/04/25 09:00 08/01/25 08:12 Cholecalciferol 25 Mcg Tablet PO 25 mcg DAILY WEST Administration Cyclobenzaprine HCl 10 mg 06/18/25 13:19 08/01/25 08:12 Cyclobenzaprine 10 Mg Tablet PO 10 mg TID PRN Administration Spasms Docusate Sodium 250 - 500 mg 07/02/25 10:35 Docusate Sodium 250 Mg Capsule PO DAILY PRN Constipation Polyethylene Glycol 17 gm 07/02/25 10:34 07/14/25 07:46 Polyethylene Glycol 3350 17 Gm Packet PO 17 gm DAILY PRN Administration Constipation Multivit/Folic Acid/Iron 1 tab 05/25/25 08:00 08/01/25 08:11 Vitamin Tablet PO 1 tab DAILYWM WEST Administration Sodium Chloride 10 ml 05/21/25 14:24 06/18/25 00:14 Sodium Chloride Flush 0.9% 10 Ml Syringe IVP 10 ml PRN PRN Administration NEEDED PER PROVIDER ORDERS Thiamine HCl 100 mg 05/30/25 09:00 08/01/25 08:11 Thiamine 100 Mg Tablet PO 100 mg DAILY WEST Administration Zinc Oxide 113 gm 06/28/25 12:00 08/01/25 08:12 Cod Liver Oil/Zinc Oxide 113 Gm Tube TOP 1 applic PRN PRN Administration Skin Care Objective Vital Signs/Intake & Output Reviewed Vital Signs: Yes Vital Signs: Vital Signs x48h Temp Pulse Resp BP Pulse Ox 08/01/25 07:55 36.5 C 96 18 133/99 H 97 Intake & Output: Intake & Output 07/29/25 07/30/25 07/31/25 08/01/25 23:59 23:59 23:59 23:59 Intake Total 1400 / 1400 800 / 800 1000 / 1000 470 / 470 Balance 1400 / 1400 800 / 800 1000 / 1000 470 / 470 Objective General Appearance: positive No acute distress Eyes Bilateral: positive Normal inspection ENT: positive ENT inspection nml Neck: positive Nml inspection Respiratory: positive No respiratory distress and Breath sounds nml Cardiovascular: positive Regular rate & rhythm Abdomen: positive No distention Skin: positive Color nml, No rash and Dry Extremities: positive Nml appearance and No pedal edema Neurologic/Psychiatric: positive Other (alert) Lab Results 06/27/25 16:37 06/27/25 16:37 Other Labs: Lab Results x24hrs 07/06/25 Range/Units 13:10 Nasal Adenovirus (PCR) NOT DETECTED Nasal B. parapertussis DNA (PCR) NOT DETECTED Nasal Coronavir 229E PCR NOT DETECTED Nasal Coronavir HKU1 PCR NOT DETECTED Nasal Coronavir NL63 PCR NOT DETECTED Nasal Coronavir OC43 PCR NOT DETECTED Nasal Enterovir/Rhinovir PCR NOT DETECTED Nasal Influenza B PCR NOT DETECTED Nasal Influenza A PCR NOT DETECTED Nasal Parainfluen 1 PCR NOT DETECTED Nasal Parainfluen 2 PCR NOT DETECTED Nasal Parainfluen 3 PCR NOT DETECTED Nasal Parainfluen 4 PCR NOT DETECTED Nasal RSV (PCR) NOT DETECTED Nasal B.pertussis DNA PCR NOT DETECTED Nasal C.pneumoniae (PCR) NOT DETECTED Rory Human Metapneumo PCR NOT DETECTED Nasal M.pneumoniae (PCR) NOT DETECTED Nasal SARS-CoV-2 (PCR) NOT DETECTED Sepsis Event Note (H) Evaluation Current Stage of Sepsis: Ruled out Assessment/Plan Problem List (1) Polysubstance abuse: Impression: She has been in the hospital since 05/13/2025 UDS on presentation was positive for opiates, amphetamine, methamphetamine, cocaine She is out of the window for any acute withdrawal. She has not had any acute changes in her mental status for at least a week. 06/13: She is having some overall tenseness and hyperactivity, likely a psychomotor side effect of her polysubstance abuse. I am starting Suboxone 8-2 mg SL daily and will monitor for effect versus toxicity 05/20 7: She did not tolerate her dose of Suboxone very well. She was very lethargic through most of yesterday afternoon and is still only responding to pain. Last night I gave her a dose of Narcan with minimal effect. I gave her a liter of IV fluids and sent her for CT head out of an abundance of caution which showed no acute changes. I have discontinued her Suboxone, and I am keeping her on continuous pulse ox to watch for respiratory depression. I have Narcan ordered as needed. Chest x-ray was performed as she had some desaturation requiring 2 L O2. This showed no acute findings. 06/15: Her mentation is much improved today as the Suboxone is washing out of her system. As we do not stock smaller doses of Suboxone, we will likely not pursue this any further. She is back to her mentation as of a few days ago. Remains medically clear. Today is nonbillable rounding 06/16: No change in condition, no change in plan. (2) Altered mental status: Impression: Altered mentation likely secondary to polysubstance abuse UDS on presentation positive for opiates, amphetamine, methamphetamine, cocaine Patient was held in observation, and repeat CT and MRI were performed. MRI shows diffuse white matter hyperintense signal which may represent edema. Not the typical presentation of press Her altered mentation is not affected by her blood pressure, meaning it is not improved whenever her blood pressure is within normal limits Case discussed with neurology on 05/26, who recommended LP, but stated that this is likely sequela of hypoxic event from drug use. thiamine 500 mg IM 3 times daily started on 05 26,for 3 days, now on po thiamine daily 06/06 Daughter Ina made contact with RN. I also spoke with her, at this point, her mother's condition is sub acute. No need for interventions. 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 She is willing to assist with this, but neither she, nor her mother have a safe place to live. Qualifiers: Altered mental status type: stupor Qualified Code(s): R40.1 - Stupor (3) Pubic bone fracture: Impression: X-ray hip on 05/25 shows moderately displaced right inferior pubic ramus fracture with extension in the medial acetabular column and suspicion for extension to the pelvic ring. Case was discussed with on-call orthopedist, who reports this is nonoperative. She is full weightbearing as tolerated and will need a walker at discharge. If her mentation improves, we will order PT jesús, currently not able to particpate with PT. She has been seen 1x for PT, no rehab potentential. She is getting to the chair daily with staff assistance (4) Malnutrition: Impression: Severe protein calorie malnutrition given obvious muscle wasting, loss of subcutaneous fat, bedridden. She is eatiing 100% of meals, with occasional exception. BMI increased from 14.9 to 15.7 to 16.2. This is an improvement. This patient's diagnosis and treatment plan was discussed this AM with attending physician as a part of multi disciplinary rounding meeting. non billable rounding Qualifiers: Malnutrition type: unspecified type Qualified Code(s): E46 - Unspecified protein-calorie malnutrition
--- NOTE | 2025-08-02 11:43 | PROVIDER PROGRESS NOTE ---
Subjective Prog Note Date Prog Note Date: 08/02/25 Subjective Pt reports feeling: No change Current Medications Current Medications Current Medications: Current Medications Generic Name Dose Route Start Last Admin Trade Name Falguni PRN Reason Stop Dose Admin Acetaminophen 650 mg 05/21/25 14:24 08/02/25 11:36 Acetaminophen 325 Mg Tablet PO 650 mg Q4HR PRN Administration Pain 1 to 4, or Fever Apixaban 2.5 mg 05/29/25 21:00 08/02/25 08:14 Apixaban 2.5 Mg Tablet PO 2.5 mg BID WEST Administration Calcium Carbonate/Glycine 500 mg 06/04/25 09:00 08/02/25 08:14 Calcium Carbonate Chew 500 Mg Tablet PO 500 mg DAILY WEST Administration Cetirizine HCl 10 mg 07/06/25 11:37 07/24/25 08:14 Cetirizine 10 Mg Tablet PO 10 mg DAILY PRN Administration Allergy Symptoms Cholecalciferol 25 mcg 06/04/25 09:00 08/02/25 08:15 Cholecalciferol 25 Mcg Tablet PO 25 mcg DAILY WEST Administration Cyclobenzaprine HCl 10 mg 06/18/25 13:19 08/02/25 11:36 Cyclobenzaprine 10 Mg Tablet PO 10 mg TID PRN Administration Spasms Docusate Sodium 250 - 500 mg 07/02/25 10:35 Docusate Sodium 250 Mg Capsule PO DAILY PRN Constipation Polyethylene Glycol 17 gm 07/02/25 10:34 07/14/25 07:46 Polyethylene Glycol 3350 17 Gm Packet PO 17 gm DAILY PRN Administration Constipation Multivit/Folic Acid/Iron 1 tab 05/25/25 08:00 08/02/25 08:14 Vitamin Tablet PO 1 tab DAILYWM WEST Administration Sodium Chloride 10 ml 05/21/25 14:24 06/18/25 00:14 Sodium Chloride Flush 0.9% 10 Ml Syringe IVP 10 ml PRN PRN Administration NEEDED PER PROVIDER ORDERS Thiamine HCl 100 mg 05/30/25 09:00 08/02/25 08:14 Thiamine 100 Mg Tablet PO 100 mg DAILY WEST Administration Zinc Oxide 113 gm 06/28/25 12:00 08/02/25 08:16 Cod Liver Oil/Zinc Oxide 113 Gm Tube TOP 1 applic PRN PRN Administration Skin Care Objective Vital Signs/Intake & Output Reviewed Vital Signs: Yes Vital Signs: Vital Signs x48h Temp Pulse Resp BP Pulse Ox 08/02/25 08:36 36.5 C 107 H 18 146/89 H 98 Intake & Output: Intake & Output 07/30/25 07/31/25 08/01/25 08/02/25 23:59 23:59 23:59 23:59 Intake Total 800 / 800 1000 / 1000 1150 / 1150 597 / 597 Balance 800 / 800 1000 / 1000 1150 / 1150 597 / 597 Weight (kg) 46.5 kg Objective General Appearance: positive No acute distress Eyes Bilateral: positive Normal inspection ENT: positive ENT inspection nml Neck: positive Nml inspection Respiratory: positive No respiratory distress and Breath sounds nml Cardiovascular: positive Regular rate & rhythm Abdomen: positive No distention Skin: positive Color nml, No rash and Dry Extremities: positive Nml appearance and No pedal edema Neurologic/Psychiatric: positive Other (alert) Lab Results 06/27/25 16:37 06/27/25 16:37 Other Labs: Lab Results x24hrs 07/06/25 Range/Units 13:10 Nasal Adenovirus (PCR) NOT DETECTED Nasal B. parapertussis DNA (PCR) NOT DETECTED Nasal Coronavir 229E PCR NOT DETECTED Nasal Coronavir HKU1 PCR NOT DETECTED Nasal Coronavir NL63 PCR NOT DETECTED Nasal Coronavir OC43 PCR NOT DETECTED Nasal Enterovir/Rhinovir PCR NOT DETECTED Nasal Influenza B PCR NOT DETECTED Nasal Influenza A PCR NOT DETECTED Nasal Parainfluen 1 PCR NOT DETECTED Nasal Parainfluen 2 PCR NOT DETECTED Nasal Parainfluen 3 PCR NOT DETECTED Nasal Parainfluen 4 PCR NOT DETECTED Nasal RSV (PCR) NOT DETECTED Nasal B.pertussis DNA PCR NOT DETECTED Nasal C.pneumoniae (PCR) NOT DETECTED Rory Human Metapneumo PCR NOT DETECTED Nasal M.pneumoniae (PCR) NOT DETECTED Nasal SARS-CoV-2 (PCR) NOT DETECTED Sepsis Event Note (H) Evaluation Current Stage of Sepsis: Ruled out Assessment/Plan Problem List (1) Polysubstance abuse: Impression: She has been in the hospital since 05/13/2025 UDS on presentation was positive for opiates, amphetamine, methamphetamine, cocaine She is out of the window for any acute withdrawal. She has not had any acute changes in her mental status for at least a week. 06/13: She is having some overall tenseness and hyperactivity, likely a psychomotor side effect of her polysubstance abuse. I am starting Suboxone 8-2 mg SL daily and will monitor for effect versus toxicity 05/20: She did not tolerate her dose of Suboxone very well. She was very lethargic through most of yesterday afternoon and is still only responding to pain. Last night I gave her a dose of Narcan with minimal effect. I gave her a liter of IV fluids and sent her for CT head out of an abundance of caution which showed no acute changes. I have discontinued her Suboxone, and I am keeping her on continuous pulse ox to watch for respiratory depression. I have Narcan ordered as needed. Chest x-ray was performed as she had some desaturation requiring 2 L O2. This showed no acute findings. 06/15: Her mentation is much improved today as the Suboxone is washing out of her system. As we do not stock smaller doses of Suboxone, we will likely not pursue this any further. She is back to her mentation as of a few days ago. Remains medically clear. Today is nonbillable rounding 06/16: No change in condition, no change in plan. (2) Altered mental status: Impression: Altered mentation likely secondary to polysubstance abuse UDS on presentation positive for opiates, amphetamine, methamphetamine, cocaine Patient was held in observation, and repeat CT and MRI were performed. MRI shows diffuse white matter hyperintense signal which may represent edema. Not the typical presentation of press Her altered mentation is not affected by her blood pressure, meaning it is not improved whenever her blood pressure is within normal limits Case discussed with neurology on 05/26, who recommended LP, but stated that this is likely sequela of hypoxic event from drug use. thiamine 500 mg IM 3 times daily started on 05 26,for 3 days, now on po thiamine daily 06/06 Daughter Ina made contact with RN. I also spoke with her, at this point, her mother's condition is sub acute. No need for interventions. 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 She is willing to assist with this, but neither she, nor her mother have a safe place to live. Qualifiers: Altered mental status type: stupor Qualified Code(s): R40.1 - Stupor (3) Pubic bone fracture: Impression: X-ray hip on 05/25 shows moderately displaced right inferior pubic ramus fracture with extension in the medial acetabular column and suspicion for extension to the pelvic ring. Case was discussed with on-call orthopedist, who reports this is nonoperative. She is full weightbearing as tolerated and will need a walker at discharge. If her mentation improves, we will order PT jesús, currently not able to particpate with PT. She has been seen 1x for PT, no rehab potentential. She is getting to the chair daily with staff assistance (4) Malnutrition: Impression: Severe protein calorie malnutrition given obvious muscle wasting, loss of subcutaneous fat, bedridden. She is eatiing 100% of meals, with occasional exception. BMI increased from 14.9 to 15.7 to 16.2. This is an improvement. This patient's diagnosis and treatment plan was discussed this AM with attending physician as a part of multi disciplinary rounding meeting. non billable rounding Qualifiers: Malnutrition type: unspecified type Qualified Code(s): E46 - Unspecified protein-calorie malnutrition
--- NOTE | 2025-08-03 12:45 | PROVIDER PROGRESS NOTE ---
Subjective Prog Note Date Prog Note Date: 08/03/25 Subjective Pt reports feeling: No change Current Medications Current Medications Current Medications: Current Medications Generic Name Dose Route Start Last Admin Trade Name Falguni PRN Reason Stop Dose Admin Acetaminophen 650 mg 05/21/25 14:24 08/03/25 11:36 Acetaminophen 325 Mg Tablet PO 650 mg Q4HR PRN Administration Pain 1 to 4, or Fever Apixaban 2.5 mg 05/29/25 21:00 08/03/25 08:46 Apixaban 2.5 Mg Tablet PO 2.5 mg BID WEST Administration Calcium Carbonate/Glycine 500 mg 06/04/25 09:00 08/03/25 08:46 Calcium Carbonate Chew 500 Mg Tablet PO 500 mg DAILY WEST Administration Cetirizine HCl 10 mg 07/06/25 11:37 07/24/25 08:14 Cetirizine 10 Mg Tablet PO 10 mg DAILY PRN Administration Allergy Symptoms Cholecalciferol 25 mcg 06/04/25 09:00 08/03/25 08:46 Cholecalciferol 25 Mcg Tablet PO 25 mcg DAILY WEST Administration Cyclobenzaprine HCl 10 mg 06/18/25 13:19 08/03/25 08:46 Cyclobenzaprine 10 Mg Tablet PO 10 mg TID PRN Administration Spasms Docusate Sodium 250 - 500 mg 07/02/25 10:35 Docusate Sodium 250 Mg Capsule PO DAILY PRN Constipation Polyethylene Glycol 17 gm 07/02/25 10:34 07/14/25 07:46 Polyethylene Glycol 3350 17 Gm Packet PO 17 gm DAILY PRN Administration Constipation Multivit/Folic Acid/Iron 1 tab 05/25/25 08:00 08/03/25 08:46 Vitamin Tablet PO 1 tab DAILYWM WEST Administration Sodium Chloride 10 ml 05/21/25 14:24 06/18/25 00:14 Sodium Chloride Flush 0.9% 10 Ml Syringe IVP 10 ml PRN PRN Administration NEEDED PER PROVIDER ORDERS Thiamine HCl 100 mg 05/30/25 09:00 08/03/25 08:46 Thiamine 100 Mg Tablet PO 100 mg DAILY WEST Administration Zinc Oxide 113 gm 06/28/25 12:00 08/03/25 08:47 Cod Liver Oil/Zinc Oxide 113 Gm Tube TOP 1 applic PRN PRN Administration Skin Care Objective Vital Signs/Intake & Output Reviewed Vital Signs: Yes Vital Signs: Vital Signs x48h Temp Pulse Resp BP Pulse Ox 08/03/25 08:51 36.5 C 98 16 127/89 96 Intake & Output: Intake & Output 07/31/25 08/01/25 08/02/25 08/03/25 23:59 23:59 23:59 23:59 Intake Total 1000 / 1000 1150 / 1150 1387 / 1387 320 / 320 Balance 1000 / 1000 1150 / 1150 1387 / 1387 320 / 320 Weight (kg) 46.5 kg Objective General Appearance: positive No acute distress Eyes Bilateral: positive Normal inspection ENT: positive ENT inspection nml Neck: positive Nml inspection Respiratory: positive No respiratory distress and Breath sounds nml Cardiovascular: positive Regular rate & rhythm Abdomen: positive No distention Skin: positive Color nml, No rash and Dry Extremities: positive Nml appearance and No pedal edema Neurologic/Psychiatric: positive Other (alert) Lab Results 06/27/25 16:37 06/27/25 16:37 Other Labs: Lab Results x24hrs 07/06/25 Range/Units 13:10 Nasal Adenovirus (PCR) NOT DETECTED Nasal B. parapertussis DNA (PCR) NOT DETECTED Nasal Coronavir 229E PCR NOT DETECTED Nasal Coronavir HKU1 PCR NOT DETECTED Nasal Coronavir NL63 PCR NOT DETECTED Nasal Coronavir OC43 PCR NOT DETECTED Nasal Enterovir/Rhinovir PCR NOT DETECTED Nasal Influenza B PCR NOT DETECTED Nasal Influenza A PCR NOT DETECTED Nasal Parainfluen 1 PCR NOT DETECTED Nasal Parainfluen 2 PCR NOT DETECTED Nasal Parainfluen 3 PCR NOT DETECTED Nasal Parainfluen 4 PCR NOT DETECTED Nasal RSV (PCR) NOT DETECTED Nasal B.pertussis DNA PCR NOT DETECTED Nasal C.pneumoniae (PCR) NOT DETECTED Rory Human Metapneumo PCR NOT DETECTED Nasal M.pneumoniae (PCR) NOT DETECTED Nasal SARS-CoV-2 (PCR) NOT DETECTED Sepsis Event Note (H) Evaluation Current Stage of Sepsis: Ruled out Assessment/Plan Problem List (1) Polysubstance abuse: Impression: She has been in the hospital since 05/13/2025 UDS on presentation was positive for opiates, amphetamine, methamphetamine, cocaine She is out of the window for any acute withdrawal. She has not had any acute changes in her mental status for at least a week. 06/13: She is having some overall tenseness and hyperactivity, likely a psychomotor side effect of her polysubstance abuse. I am starting Suboxone 8-2 mg SL daily and will monitor for effect versus toxicity 05/20: She did not tolerate her dose of Suboxone very well. She was very lethargic through most of yesterday afternoon and is still only responding to pain. Last night I gave her a dose of Narcan with minimal effect. I gave her a liter of IV fluids and sent her for CT head out of an abundance of caution which showed no acute changes. I have discontinued her Suboxone, and I am keeping her on continuous pulse ox to watch for respiratory depression. I have Narcan ordered as needed. Chest x-ray was performed as she had some desaturation requiring 2 L O2. This showed no acute findings. 06/15: Her mentation is much improved today as the Suboxone is washing out of her system. As we do not stock smaller doses of Suboxone, we will likely not pursue this any further. She is back to her mentation as of a few days ago. Remains medically clear. Today is nonbillable rounding 06/16: No change in condition, no change in plan. (2) Altered mental status: Impression: Altered mentation likely secondary to polysubstance abuse UDS on presentation positive for opiates, amphetamine, methamphetamine, cocaine Patient was held in observation, and repeat CT and MRI were performed. MRI shows diffuse white matter hyperintense signal which may represent edema. Not the typical presentation of press Her altered mentation is not affected by her blood pressure, meaning it is not improved whenever her blood pressure is within normal limits Case discussed with neurology on 05/26, who recommended LP, but stated that this is likely sequela of hypoxic event from drug use. thiamine 500 mg IM 3 times daily started on 05 26,for 3 days, now on po thiamine daily 06/06 Daughter Ina made contact with RN. I also spoke with her, at this point, her mother's condition is sub acute. No need for interventions. 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 She is willing to assist with this, but neither she, nor her mother have a safe place to live. Qualifiers: Altered mental status type: stupor Qualified Code(s): R40.1 - Stupor (3) Pubic bone fracture: Impression: X-ray hip on 05/25 shows moderately displaced right inferior pubic ramus fracture with extension in the medial acetabular column and suspicion for extension to the pelvic ring. Case was discussed with on-call orthopedist, who reports this is nonoperative. She is full weightbearing as tolerated and will need a walker at discharge. If her mentation improves, we will order PT jesús, currently not able to particpate with PT. She has been seen 1x for PT, no rehab potentential. She is getting to the chair daily with staff assistance (4) Malnutrition: Impression: Severe protein calorie malnutrition given obvious muscle wasting, loss of subcutaneous fat, bedridden. She is eatiing 100% of meals, with occasional exception. BMI increased from 14.9 to 15.7 to 16.2. This is an improvement. This patient's diagnosis and treatment plan was discussed this AM with attending physician as a part of multi disciplinary rounding meeting. non billable rounding Qualifiers: Malnutrition type: unspecified type Qualified Code(s): E46 - Unspecified protein-calorie malnutrition
--- NOTE | 2025-08-04 11:49 | PROVIDER PROGRESS NOTE ---
Subjective Prog Note Date Prog Note Date: 08/04/25 Subjective Pt reports feeling: No change Current Medications Current Medications Current Medications: Current Medications Generic Name Dose Route Start Last Admin Trade Name Falguni PRN Reason Stop Dose Admin Acetaminophen 650 mg 05/21/25 14:24 08/03/25 11:36 Acetaminophen 325 Mg Tablet PO 650 mg Q4HR PRN Administration Pain 1 to 4, or Fever Apixaban 2.5 mg 05/29/25 21:00 08/04/25 08:14 Apixaban 2.5 Mg Tablet PO 2.5 mg BID WEST Administration Calcium Carbonate/Glycine 500 mg 06/04/25 09:00 08/04/25 08:14 Calcium Carbonate Chew 500 Mg Tablet PO 500 mg DAILY WEST Administration Cetirizine HCl 10 mg 07/06/25 11:37 07/24/25 08:14 Cetirizine 10 Mg Tablet PO 10 mg DAILY PRN Administration Allergy Symptoms Cholecalciferol 25 mcg 06/04/25 09:00 08/04/25 08:14 Cholecalciferol 25 Mcg Tablet PO 25 mcg DAILY WEST Administration Cyclobenzaprine HCl 10 mg 06/18/25 13:19 08/03/25 08:46 Cyclobenzaprine 10 Mg Tablet PO 10 mg TID PRN Administration Spasms Docusate Sodium 250 - 500 mg 07/02/25 10:35 Docusate Sodium 250 Mg Capsule PO DAILY PRN Constipation Polyethylene Glycol 17 gm 07/02/25 10:34 07/14/25 07:46 Polyethylene Glycol 3350 17 Gm Packet PO 17 gm DAILY PRN Administration Constipation Multivit/Folic Acid/Iron 1 tab 05/25/25 08:00 08/04/25 08:14 Vitamin Tablet PO 1 tab DAILYWM WEST Administration Sodium Chloride 10 ml 05/21/25 14:24 06/18/25 00:14 Sodium Chloride Flush 0.9% 10 Ml Syringe IVP 10 ml PRN PRN Administration NEEDED PER PROVIDER ORDERS Thiamine HCl 100 mg 05/30/25 09:00 08/04/25 08:14 Thiamine 100 Mg Tablet PO 100 mg DAILY WEST Administration Zinc Oxide 113 gm 06/28/25 12:00 08/03/25 08:47 Cod Liver Oil/Zinc Oxide 113 Gm Tube TOP 1 applic PRN PRN Administration Skin Care Objective Vital Signs/Intake & Output Reviewed Vital Signs: Yes Vital Signs: Vital Signs x48h Temp Pulse Resp BP Pulse Ox 08/04/25 07:34 36.5 C 107 H 16 139/95 H 94 Intake & Output: Intake & Output 08/01/25 08/02/25 08/03/25 08/04/25 23:59 23:59 23:59 23:59 Intake Total 1150 / 1150 1387 / 1387 1225 / 1225 120 / 120 Balance 1150 / 1150 1387 / 1387 1225 / 1225 120 / 120 Weight (kg) 46.5 kg Objective General Appearance: positive No acute distress Eyes Bilateral: positive Normal inspection ENT: positive ENT inspection nml Neck: positive Nml inspection Respiratory: positive No respiratory distress and Breath sounds nml Cardiovascular: positive Regular rate & rhythm Abdomen: positive No distention Skin: positive Color nml, No rash and Dry Extremities: positive Nml appearance and No pedal edema Neurologic/Psychiatric: positive Other (alert) Lab Results 06/27/25 16:37 06/27/25 16:37 Other Labs: Lab Results x24hrs 07/06/25 Range/Units 13:10 Nasal Adenovirus (PCR) NOT DETECTED Nasal B. parapertussis DNA (PCR) NOT DETECTED Nasal Coronavir 229E PCR NOT DETECTED Nasal Coronavir HKU1 PCR NOT DETECTED Nasal Coronavir NL63 PCR NOT DETECTED Nasal Coronavir OC43 PCR NOT DETECTED Nasal Enterovir/Rhinovir PCR NOT DETECTED Nasal Influenza B PCR NOT DETECTED Nasal Influenza A PCR NOT DETECTED Nasal Parainfluen 1 PCR NOT DETECTED Nasal Parainfluen 2 PCR NOT DETECTED Nasal Parainfluen 3 PCR NOT DETECTED Nasal Parainfluen 4 PCR NOT DETECTED Nasal RSV (PCR) NOT DETECTED Nasal B.pertussis DNA PCR NOT DETECTED Nasal C.pneumoniae (PCR) NOT DETECTED Rory Human Metapneumo PCR NOT DETECTED Nasal M.pneumoniae (PCR) NOT DETECTED Nasal SARS-CoV-2 (PCR) NOT DETECTED Sepsis Event Note (H) Evaluation Current Stage of Sepsis: Ruled out Assessment/Plan Problem List (1) Polysubstance abuse: Impression: She has been in the hospital since 05/13/2025 UDS on presentation was positive for opiates, amphetamine, methamphetamine, cocaine She is out of the window for any acute withdrawal. She has not had any acute changes in her mental status for at least a week. 06/13: She is having some overall tenseness and hyperactivity, likely a psychomotor side effect of her polysubstance abuse. I am starting Suboxone 8-2 mg SL daily and will monitor for effect versus toxicity 05/20: She did not tolerate her dose of Suboxone very well. She was very lethargic through most of yesterday afternoon and is still only responding to pain. Last night I gave her a dose of Narcan with minimal effect. I gave her a liter of IV fluids and sent her for CT head out of an abundance of caution which showed no acute changes. I have discontinued her Suboxone, and I am keeping her on continuous pulse ox to watch for respiratory depression. I have Narcan ordered as needed. Chest x-ray was performed as she had some desaturation requiring 2 L O2. This showed no acute findings. 06/15: Her mentation is much improved today as the Suboxone is washing out of her system. As we do not stock smaller doses of Suboxone, we will likely not pursue this any further. She is back to her mentation as of a few days ago. Remains medically clear. Today is nonbillable rounding 06/16: No change in condition, no change in plan. (2) Altered mental status: Impression: Altered mentation likely secondary to polysubstance abuse UDS on presentation positive for opiates, amphetamine, methamphetamine, cocaine Patient was held in observation, and repeat CT and MRI were performed. MRI shows diffuse white matter hyperintense signal which may represent edema. Not the typical presentation of press Her altered mentation is not affected by her blood pressure, meaning it is not improved whenever her blood pressure is within normal limits Case discussed with neurology on 05/26, who recommended LP, but stated that this is likely sequela of hypoxic event from drug use. thiamine 500 mg IM 3 times daily started on 05 26,for 3 days, now on po thiamine daily 06/06 Daughter Ina made contact with RN. I also spoke with her, at this point, her mother's condition is sub acute. No need for interventions. Ina is aware her mother needs senior care care. She is willing to assist with this, but neither she, nor her mother have a safe place to live. Qualifiers: Altered mental status type: stupor Qualified Code(s): R40.1 - Stupor (3) Pubic bone fracture: Impression: X-ray hip on 05/25 shows moderately displaced right inferior pubic ramus fracture with extension in the medial acetabular column and suspicion for extension to the pelvic ring. Case was discussed with on-call orthopedist, who reports this is nonoperative. She is full weightbearing as tolerated and will need a walker at discharge. If her mentation improves, we will order PT jesús, currently not able to particpate with PT. She has been seen 1x for PT, no rehab potentential. She is getting to the chair daily with staff assistance (4) Malnutrition: Impression: Severe protein calorie malnutrition given obvious muscle wasting, loss of subcutaneous fat, bedridden. She is eatiing 100% of meals, with occasional exception. BMI increased from 14.9 to 15.7 to 16.2. This is an improvement. This patient's diagnosis and treatment plan was discussed this AM with attending physician as a part of multi disciplinary rounding meeting. non billable rounding Qualifiers: Malnutrition type: unspecified type Qualified Code(s): E46 - Unspecified protein-calorie malnutrition
--- NOTE | 2025-08-05 17:42 | PROVIDER PROGRESS NOTE ---
Subjective Prog Note Date Prog Note Date: 08/05/25 Subjective Subjective: She says Hi to me when I come in. She has responded well to classic rock music recently. I have asked [employer] to play that for her today. She likes it. Current Medications Current Medications Current Medications: Current Medications Generic Name Dose Route Start Last Admin Trade Name Falguni PRN Reason Stop Dose Admin Acetaminophen 650 mg 05/21/25 14:24 08/04/25 20:12 Acetaminophen 325 Mg Tablet PO 650 mg Q4HR PRN Administration Pain 1 to 4, or Fever Apixaban 2.5 mg 05/29/25 21:00 08/05/25 09:17 Apixaban 2.5 Mg Tablet PO 2.5 mg BID WEST Administration Calcium Carbonate/Glycine 500 mg 06/04/25 09:00 08/05/25 09:17 Calcium Carbonate Chew 500 Mg Tablet PO 500 mg DAILY WEST Administration Cetirizine HCl 10 mg 07/06/25 11:37 07/24/25 08:14 Cetirizine 10 Mg Tablet PO 10 mg DAILY PRN Administration Allergy Symptoms Cholecalciferol 25 mcg 06/04/25 09:00 08/05/25 09:17 Cholecalciferol 25 Mcg Tablet PO 25 mcg DAILY WEST Administration Cyclobenzaprine HCl 10 mg 06/18/25 13:19 08/04/25 20:11 Cyclobenzaprine 10 Mg Tablet PO 10 mg TID PRN Administration Spasms Docusate Sodium 250 - 500 mg 07/02/25 10:35 Docusate Sodium 250 Mg Capsule PO DAILY PRN Constipation Polyethylene Glycol 17 gm 07/02/25 10:34 07/14/25 07:46 Polyethylene Glycol 3350 17 Gm Packet PO 17 gm DAILY PRN Administration Constipation Multivit/Folic Acid/Iron 1 tab 05/25/25 08:00 08/05/25 09:17 Vitamin Tablet PO 1 tab DAILYWM WEST Administration Sodium Chloride 10 ml 05/21/25 14:24 06/18/25 00:14 Sodium Chloride Flush 0.9% 10 Ml Syringe IVP 10 ml PRN PRN Administration NEEDED PER PROVIDER ORDERS Thiamine HCl 100 mg 05/30/25 09:00 08/05/25 09:17 Thiamine 100 Mg Tablet PO 100 mg DAILY WEST Administration Zinc Oxide 113 gm 06/28/25 12:00 08/03/25 08:47 Cod Liver Oil/Zinc Oxide 113 Gm Tube TOP 1 applic PRN PRN Administration Skin Care Objective Vital Signs/Intake & Output Reviewed Vital Signs: Yes Vital Signs: Vital Signs x48h Temp Pulse Resp BP Pulse Ox 08/04/25 07:34 36.5 C 107 H 16 139/95 H 94 Intake & Output: Intake & Output 08/02/25 08/03/25 08/04/25 08/05/25 23:59 23:59 23:59 23:59 Intake Total 1387 / 1387 1225 / 1225 1220 / 1220 440 / 440 Balance 1387 / 1387 1225 / 1225 1220 / 1220 440 / 440 Objective General Appearance: positive No acute distress Eyes Bilateral: positive Normal inspection ENT: positive ENT inspection nml Neck: positive Nml inspection Respiratory: positive No respiratory distress and Breath sounds nml Cardiovascular: positive Regular rate & rhythm Abdomen: positive No distention Skin: positive Color nml, No rash and Dry Extremities: positive Nml appearance and No pedal edema Neurologic/Psychiatric: positive Other (alert) Lab Results 06/27/25 16:37 06/27/25 16:37 Other Labs: Lab Results x24hrs 07/06/25 Range/Units 13:10 Nasal Adenovirus (PCR) NOT DETECTED Nasal B. parapertussis DNA (PCR) NOT DETECTED Nasal Coronavir 229E PCR NOT DETECTED Nasal Coronavir HKU1 PCR NOT DETECTED Nasal Coronavir NL63 PCR NOT DETECTED Nasal Coronavir OC43 PCR NOT DETECTED Nasal Enterovir/Rhinovir PCR NOT DETECTED Nasal Influenza B PCR NOT DETECTED Nasal Influenza A PCR NOT DETECTED Nasal Parainfluen 1 PCR NOT DETECTED Nasal Parainfluen 2 PCR NOT DETECTED Nasal Parainfluen 3 PCR NOT DETECTED Nasal Parainfluen 4 PCR NOT DETECTED Nasal RSV (PCR) NOT DETECTED Nasal B.pertussis DNA PCR NOT DETECTED Nasal C.pneumoniae (PCR) NOT DETECTED Rory Human Metapneumo PCR NOT DETECTED Nasal M.pneumoniae (PCR) NOT DETECTED Nasal SARS-CoV-2 (PCR) NOT DETECTED Sepsis Event Note (H) Evaluation Current Stage of Sepsis: Ruled out Assessment/Plan Problem List (1) Polysubstance abuse: Impression: She has been in the hospital since 05/13/2025 UDS on presentation was positive for opiates, amphetamine, methamphetamine, cocaine She is out of the window for any acute withdrawal. She has not had any acute changes in her mental status for at least a week. 06/13: She is having some overall tenseness and hyperactivity, likely a psychomotor side effect of her polysubstance abuse. I am starting Suboxone 8-2 mg SL daily and will monitor for effect versus toxicity 05/20: She did not tolerate her dose of Suboxone very well. She was very lethargic through most of yesterday afternoon and is still only responding to pain. Last night I gave her a dose of Narcan with minimal effect. I gave her a liter of IV fluids and sent her for CT head out of an abundance of caution which showed no acute changes. I have discontinued her Suboxone, and I am keeping her on continuous pulse ox to watch for respiratory depression. I have Narcan ordered as needed. Chest x-ray was performed as she had some desaturation requiring 2 L O2. This showed no acute findings. 06/15: Her mentation is much improved today as the Suboxone is washing out of her system. As we do not stock smaller doses of Suboxone, we will likely not pursue this any further. She is back to her mentation as of a few days ago. Remains medically clear. Today is nonbillable rounding 06/16: No change in condition, no change in plan. (2) Altered mental status: Impression: Altered mentation likely secondary to polysubstance abuse UDS on presentation positive for opiates, amphetamine, methamphetamine, cocaine Patient was held in observation, and repeat CT and MRI were performed. MRI shows diffuse white matter hyperintense signal which may represent edema. Not the typical presentation of press Her altered mentation is not affected by her blood pressure, meaning it is not improved whenever her blood pressure is within normal limits Case discussed with neurology on 05/26, who recommended LP, but stated that this is likely sequela of hypoxic event from drug use. thiamine 500 mg IM 3 times daily started on 05 26,for 3 days, now on po thiamine daily 06/06 Daughter Ina made contact with RN. I also spoke with her, at this point, her mother's condition is sub acute. No need for interventions. Ina is aware her mother needs long goods drier care. She is willing to assist with this, but neither she, nor her mother have a safe place to live. Qualifiers: Altered mental status type: stupor Qualified Code(s): R40.1 - Stupor (3) Pubic bone fracture: Impression: X-ray hip on 05/25 shows moderately displaced right inferior pubic ramus fracture with extension in the medial acetabular column and suspicion for extension to the pelvic ring. Case was discussed with on-call orthopedist, who reports this is nonoperative. She is full weightbearing as tolerated and will need a walker at discharge. If her mentation improves, we will order PT eval, currently not able to particpate with PT. She has been seen 1x for PT, no rehab potentential. She is getting to the chair daily with staff assistance (4) Malnutrition: Impression: Severe protein calorie malnutrition given obvious muscle wasting, loss of subcutaneous fat, bedridden. She is eatiing 100% of meals, with occasional exception. BMI increased from 14.9 to 15.7 to 16.2 to 16.5, This is an improvement. This patient's diagnosis and treatment plan was discussed this AM with attending physician as a part of multi disciplinary rounding meeting. non billable rounding Qualifiers: Malnutrition type: unspecified type Qualified Code(s): E46 - Unspecified protein-calorie malnutrition
--- NOTE | 2025-08-06 14:13 | PROVIDER PROGRESS NOTE ---
Subjective Prog Note Date Prog Note Date: 08/06/25 Subjective Subjective: She is sleeping after dinner this evening. no events today Current Medications Current Medications Current Medications: Current Medications Generic Name Dose Route Start Last Admin Trade Name Falguni PRN Reason Stop Dose Admin Acetaminophen 650 mg 05/21/25 14:24 08/06/25 12:08 Acetaminophen 325 Mg Tablet PO 650 mg Q4HR PRN Administration Pain 1 to 4, or Fever Apixaban 2.5 mg 05/29/25 21:00 08/06/25 09:05 Apixaban 2.5 Mg Tablet PO 2.5 mg BID WEST Administration Calcium Carbonate/Glycine 500 mg 06/04/25 09:00 08/06/25 09:05 Calcium Carbonate Chew 500 Mg Tablet PO 500 mg DAILY WEST Administration Cetirizine HCl 10 mg 07/06/25 11:37 08/06/25 12:09 Cetirizine 10 Mg Tablet PO 10 mg DAILY PRN Administration Allergy Symptoms Cholecalciferol 25 mcg 06/04/25 09:00 08/06/25 09:10 Cholecalciferol 25 Mcg Tablet PO 25 mcg DAILY WEST Administration Cyclobenzaprine HCl 10 mg 06/18/25 13:19 08/06/25 09:05 Cyclobenzaprine 10 Mg Tablet PO 10 mg TID PRN Administration Spasms Docusate Sodium 250 - 500 mg 07/02/25 10:35 Docusate Sodium 250 Mg Capsule PO DAILY PRN Constipation Polyethylene Glycol 17 gm 07/02/25 10:34 08/06/25 09:06 Polyethylene Glycol 3350 17 Gm Packet PO 17 gm DAILY PRN Administration Constipation Multivit/Folic Acid/Iron 1 tab 05/25/25 08:00 08/06/25 09:05 Vitamin Tablet PO 1 tab DAILYWM WEST Administration Sodium Chloride 10 ml 05/21/25 14:24 06/18/25 00:14 Sodium Chloride Flush 0.9% 10 Ml Syringe IVP 10 ml PRN PRN Administration NEEDED PER PROVIDER ORDERS Thiamine HCl 100 mg 05/30/25 09:00 08/06/25 09:05 Thiamine 100 Mg Tablet PO 100 mg DAILY WEST Administration Zinc Oxide 113 gm 06/28/25 12:00 08/06/25 12:11 Cod Liver Oil/Zinc Oxide 113 Gm Tube TOP 1 applic PRN PRN Administration Skin Care Objective Vital Signs/Intake & Output Reviewed Vital Signs: Yes Vital Signs: Vital Signs x48h Temp Pulse Resp BP Pulse Ox 08/06/25 09:00 36.6 C 109 H 16 114/93 H 96 Intake & Output: Intake & Output 08/03/25 08/04/25 08/05/25 08/06/25 23:59 23:59 23:59 23:59 Intake Total 1225 / 1225 1220 / 1220 1040 / 1040 300 / 300 Balance 1225 / 1225 1220 / 1220 1040 / 1040 300 / 300 Objective General Appearance: positive No acute distress Eyes Bilateral: positive Normal inspection ENT: positive ENT inspection nml Neck: positive Nml inspection Respiratory: positive No respiratory distress and Breath sounds nml Cardiovascular: positive Regular rate & rhythm Abdomen: positive No distention Skin: positive Color nml, No rash and Dry Extremities: positive Nml appearance and No pedal edema Neurologic/Psychiatric: positive Other (alert) Lab Results 06/27/25 16:37 06/27/25 16:37 Other Labs: Lab Results x24hrs 07/06/25 Range/Units 13:10 Nasal Adenovirus (PCR) NOT DETECTED Nasal B. parapertussis DNA (PCR) NOT DETECTED Nasal Coronavir 229E PCR NOT DETECTED Nasal Coronavir HKU1 PCR NOT DETECTED Nasal Coronavir NL63 PCR NOT DETECTED Nasal Coronavir OC43 PCR NOT DETECTED Nasal Enterovir/Rhinovir PCR NOT DETECTED Nasal Influenza B PCR NOT DETECTED Nasal Influenza A PCR NOT DETECTED Nasal Parainfluen 1 PCR NOT DETECTED Nasal Parainfluen 2 PCR NOT DETECTED Nasal Parainfluen 3 PCR NOT DETECTED Nasal Parainfluen 4 PCR NOT DETECTED Nasal RSV (PCR) NOT DETECTED Nasal B.pertussis DNA PCR NOT DETECTED Nasal C.pneumoniae (PCR) NOT DETECTED Rory Human Metapneumo PCR NOT DETECTED Nasal M.pneumoniae (PCR) NOT DETECTED Nasal SARS-CoV-2 (PCR) NOT DETECTED Sepsis Event Note (H) Evaluation Current Stage of Sepsis: Ruled out Assessment/Plan Problem List (1) Polysubstance abuse: Impression: She has been in the hospital since 05/13/2025 UDS on presentation was positive for opiates, amphetamine, methamphetamine, cocaine She is out of the window for any acute withdrawal. She has not had any acute changes in her mental status for at least a week. 06/13: She is having some overall tenseness and hyperactivity, likely a psychomotor side effect of her polysubstance abuse. I am starting Suboxone 8-2 mg SL daily and will monitor for effect versus toxicity 05/20: She did not tolerate her dose of Suboxone very well. She was very lethargic through most of yesterday afternoon and is still only responding to pain. Last night I gave her a dose of Narcan with minimal effect. I gave her a liter of IV fluids and sent her for CT head out of an abundance of caution which showed no acute changes. I have discontinued her Suboxone, and I am keeping her on continuous pulse ox to watch for respiratory depression. I have Narcan ordered as needed. Chest x-ray was performed as she had some desaturation requiring 2 L O2. This showed no acute findings. 06/15: Her mentation is much improved today as the Suboxone is washing out of her system. As we do not stock smaller doses of Suboxone, we will likely not pursue this any further. She is back to her mentation as of a few days ago. Remains medically clear. Today is nonbillable rounding 06/16: No change in condition, no change in plan. (2) Altered mental status: Impression: Altered mentation likely secondary to polysubstance abuse UDS on presentation positive for opiates, amphetamine, methamphetamine, cocaine Patient was held in observation, and repeat CT and MRI were performed. MRI shows diffuse white matter hyperintense signal which may represent edema. Not the typical presentation of press Her altered mentation is not affected by her blood pressure, meaning it is not improved whenever her blood pressure is within normal limits Case discussed with neurology on 05/26, who recommended LP, but stated that this is likely sequela of hypoxic event from drug use. thiamine 500 mg IM 3 times daily started on 05 26,for 3 days, now on po thiamine daily 06/06 Daughter Ina made contact with RN. I also spoke with her, at this point, her mother's condition is sub acute. No need for interventions. Ina is aware her mother needs medical terminologist care. She is willing to assist with this, but neither she, nor her mother have a safe place to live. Qualifiers: Altered mental status type: stupor Qualified Code(s): R40.1 - Stupor (3) Pubic bone fracture: Impression: X-ray hip on 05/25 shows moderately displaced right inferior pubic ramus fracture with extension in the medial acetabular column and suspicion for extension to the pelvic ring. Case was discussed with on-call orthopedist, who reports this is nonoperative. She is full weightbearing as tolerated and will need a walker at discharge. If her mentation improves, we will order PT jesús, currently not able to particpate with PT. She has been seen 1x for PT, no rehab potentential. She is getting to the chair daily with staff assistance (4) Malnutrition: Impression: Severe protein calorie malnutrition given obvious muscle wasting, loss of subcutaneous fat, bedridden. She is eatiing 100% of meals, with occasional exception. BMI increased from 14.9 to 15.7 to 16.2 to 16.5, This is an improvement. This patient's diagnosis and treatment plan was discussed this AM with attending physician as a part of multi disciplinary rounding meeting. non billable rounding Qualifiers: Malnutrition type: unspecified type Qualified Code(s): E46 - Unspecified protein-calorie malnutrition
--- NOTE | 2025-08-07 10:20 | PROVIDER PROGRESS NOTE ---
Subjective Prog Note Date Prog Note Date: 08/07/25 Subjective Subjective: Has been up in the chair all afternoon. She is obviously tired and ready to get back to bed, non verbal today Current Medications Current Medications Current Medications: Current Medications Generic Name Dose Route Start Last Admin Trade Name Falguni PRN Reason Stop Dose Admin Acetaminophen 650 mg 05/21/25 14:24 08/06/25 12:08 Acetaminophen 325 Mg Tablet PO 650 mg Q4HR PRN Administration Pain 1 to 4, or Fever Apixaban 2.5 mg 05/29/25 21:00 08/07/25 08:06 Apixaban 2.5 Mg Tablet PO 2.5 mg BID WEST Administration Calcium Carbonate/Glycine 500 mg 06/04/25 09:00 08/07/25 08:05 Calcium Carbonate Chew 500 Mg Tablet PO 500 mg DAILY WEST Administration Cetirizine HCl 10 mg 07/06/25 11:37 08/06/25 12:09 Cetirizine 10 Mg Tablet PO 10 mg DAILY PRN Administration Allergy Symptoms Cholecalciferol 25 mcg 06/04/25 09:00 08/07/25 08:06 Cholecalciferol 25 Mcg Tablet PO 25 mcg DAILY WEST Administration Cyclobenzaprine HCl 10 mg 06/18/25 13:19 08/07/25 08:05 Cyclobenzaprine 10 Mg Tablet PO 10 mg TID PRN Administration Spasms Docusate Sodium 250 - 500 mg 07/02/25 10:35 Docusate Sodium 250 Mg Capsule PO DAILY PRN Constipation Polyethylene Glycol 17 gm 07/02/25 10:34 08/06/25 09:06 Polyethylene Glycol 3350 17 Gm Packet PO 17 gm DAILY PRN Administration Constipation Multivit/Folic Acid/Iron 1 tab 05/25/25 08:00 08/07/25 08:06 Vitamin Tablet PO 1 tab DAILYWM WEST Administration Sodium Chloride 10 ml 05/21/25 14:24 06/18/25 00:14 Sodium Chloride Flush 0.9% 10 Ml Syringe IVP 10 ml PRN PRN Administration NEEDED PER PROVIDER ORDERS Thiamine HCl 100 mg 05/30/25 09:00 08/07/25 08:05 Thiamine 100 Mg Tablet PO 100 mg DAILY WEST Administration Zinc Oxide 113 gm 06/28/25 12:00 08/07/25 08:06 Cod Liver Oil/Zinc Oxide 113 Gm Tube TOP 1 applic PRN PRN Administration Skin Care Objective Vital Signs/Intake & Output Reviewed Vital Signs: Yes Vital Signs: Vital Signs x48h Temp Pulse Resp BP Pulse Ox 08/07/25 09:00 36.5 C 98 16 148/89 H 97 Intake & Output: Intake & Output 08/04/25 08/05/25 08/06/25 08/07/25 23:59 23:59 23:59 23:59 Intake Total 1220 / 1220 1040 / 1040 820 / 820 120 / 120 Balance 1220 / 1220 1040 / 1040 820 / 820 120 / 120 Objective General Appearance: positive No acute distress Eyes Bilateral: positive Normal inspection ENT: positive ENT inspection nml Neck: positive Nml inspection Respiratory: positive No respiratory distress and Breath sounds nml Cardiovascular: positive Regular rate & rhythm Abdomen: positive No distention Skin: positive Color nml, No rash and Dry Extremities: positive Nml appearance and No pedal edema Neurologic/Psychiatric: positive Other (alert) Lab Results 06/27/25 16:37 06/27/25 16:37 Other Labs: Lab Results x24hrs 07/06/25 Range/Units 13:10 Nasal Adenovirus (PCR) NOT DETECTED Nasal B. parapertussis DNA (PCR) NOT DETECTED Nasal Coronavir 229E PCR NOT DETECTED Nasal Coronavir HKU1 PCR NOT DETECTED Nasal Coronavir NL63 PCR NOT DETECTED Nasal Coronavir OC43 PCR NOT DETECTED Nasal Enterovir/Rhinovir PCR NOT DETECTED Nasal Influenza B PCR NOT DETECTED Nasal Influenza A PCR NOT DETECTED Nasal Parainfluen 1 PCR NOT DETECTED Nasal Parainfluen 2 PCR NOT DETECTED Nasal Parainfluen 3 PCR NOT DETECTED Nasal Parainfluen 4 PCR NOT DETECTED Nasal RSV (PCR) NOT DETECTED Nasal B.pertussis DNA PCR NOT DETECTED Nasal C.pneumoniae (PCR) NOT DETECTED Rory Human Metapneumo PCR NOT DETECTED Nasal M.pneumoniae (PCR) NOT DETECTED Nasal SARS-CoV-2 (PCR) NOT DETECTED Sepsis Event Note (H) Evaluation Current Stage of Sepsis: Ruled out Assessment/Plan Problem List (1) Polysubstance abuse: Impression: She has been in the hospital since 05/13/2025 UDS on presentation was positive for opiates, amphetamine, methamphetamine, cocaine She is out of the window for any acute withdrawal. She has not had any acute changes in her mental status for at least a week. 06/13: She is having some overall tenseness and hyperactivity, likely a psychomotor side effect of her polysubstance abuse. I am starting Suboxone 8-2 mg SL daily and will monitor for effect versus toxicity 05/20: She did not tolerate her dose of Suboxone very well. She was very lethargic through most of yesterday afternoon and is still only responding to pain. Last night I gave her a dose of Narcan with minimal effect. I gave her a liter of IV fluids and sent her for CT head out of an abundance of caution which showed no acute changes. I have discontinued her Suboxone, and I am keeping her on continuous pulse ox to watch for respiratory depression. I have Narcan ordered as needed. Chest x-ray was performed as she had some desaturation requiring 2 L O2. This showed no acute findings. 06/15: Her mentation is much improved today as the Suboxone is washing out of her system. As we do not stock smaller doses of Suboxone, we will likely not pursue this any further. She is back to her mentation as of a few days ago. Remains medically clear. Today is nonbillable rounding 06/16: No change in condition, no change in plan. (2) Altered mental status: Impression: Altered mentation likely secondary to polysubstance abuse UDS on presentation positive for opiates, amphetamine, methamphetamine, cocaine Patient was held in observation, and repeat CT and MRI were performed. MRI shows diffuse white matter hyperintense signal which may represent edema. Not the typical presentation of press Her altered mentation is not affected by her blood pressure, meaning it is not improved whenever her blood pressure is within normal limits Case discussed with neurology on 05/26, who recommended LP, but stated that this is likely sequela of hypoxic event from drug use. thiamine 500 mg IM 3 times daily started on 05 26,for 3 days, now on po thiamine daily 06/06 Daughter Ina made contact with RN. I also spoke with her, at this point, her mother's condition is sub acute. No need for interventions. Ina is aware her mother needs detention care. She is willing to assist with this, but neither she, nor her mother have a safe place to live. Qualifiers: Altered mental status type: stupor Qualified Code(s): R40.1 - Stupor (3) Pubic bone fracture: Impression: X-ray hip on 05/25 shows moderately displaced right inferior pubic ramus fracture with extension in the medial acetabular column and suspicion for extension to the pelvic ring. Case was discussed with on-call orthopedist, who reports this is nonoperative. She is full weightbearing as tolerated and will need a walker at discharge. If her mentation improves, we will order PT eval, currently not able to particpate with PT. She has been seen 1x for PT, no rehab potentential. She is getting to the chair daily with staff assistance (4) Malnutrition: Impression: Severe protein calorie malnutrition given obvious muscle wasting, loss of subcutaneous fat, bedridden. She is eatiing 100% of meals, with occasional exception. BMI increased from 14.9 to 15.7 to 16.2 to 16.5, This is an improvement. This patient's diagnosis and treatment plan was discussed this AM with attending physician as a part of multi disciplinary rounding meeting. non billable rounding Qualifiers: Malnutrition type: unspecified type Qualified Code(s): E46 - Unspecified protein-calorie malnutrition
[2025-08-08 11:56] LABS: HCT - HEMATOCRIT 45.1 % (37.0-47.0); HGB - HEMOGLOBIN 14.9 g/dL (12.0-16.0); MEAN PLATELET VOLUME 10.1 fL (7.9-10.8); NRBC ABSOLUTE COUNT (AUTO) 0.00 x10^3/uL; NUCLEATED RED BLOOD CELLS AUTO 0.0 /100WBC; PLT - PLATELET COUNT 371 10^3/uL (130-450); RED CELL DISTRIBUTION WIDTH 12.6 % (12.0-15.0)
[2025-08-08 12:12] LABS: BUN - BLOOD UREA NITROGEN 24.0 mg/dL (6-20); CARBON DIOXIDE - CO2 29.0 mmol/L (21-32); CREATININE 0.5 mg/dL (0.6-1.3); GFR - MDRD 126.0 (>89)
--- NOTE | 2025-08-08 12:54 | XRAY Report ---
PROCEDURE: XR Chest 1V INDICATIONS: VIDYA rhonchi TECHNIQUE: Single frontal view of the chest was obtained COMPARISON: None FINDINGS: Instrumentation: None Heart size, mediastinum and pulmonary vasculature: Unremarkable. Lungs and pleural spaces: Hyperinflation and chronic interstitial changes Osseous structures: Unremarkable IMPRESSION: Hyperinflation and chronic interstitial changes Reviewed by: Oral Mcdonald MD on 08/08/2025 11:51 AM GOGO Approved by: Oral Mcdonald MD on 08/08/2025 11:51 AM AKDT Station ID: [id number]
--- NOTE | 2025-08-08 14:18 | PROVIDER PROGRESS NOTE ---
Current Medications Current Medications Current Medications: Current Medications Generic Name Dose Route Start Last Admin Trade Name Falguni PRN Reason Stop Dose Admin Acetaminophen 650 mg 05/21/25 14:24 08/08/25 08:21 Acetaminophen 325 Mg Tablet PO 650 mg Q4HR PRN Administration Pain 1 to 4, or Fever Apixaban 2.5 mg 05/29/25 21:00 08/08/25 08:22 Apixaban 2.5 Mg Tablet PO 2.5 mg BID WEST Administration Calcium Carbonate/Glycine 500 mg 06/04/25 09:00 08/08/25 08:22 Calcium Carbonate Chew 500 Mg Tablet PO 500 mg DAILY WEST Administration Cetirizine HCl 10 mg 07/06/25 11:37 08/06/25 12:09 Cetirizine 10 Mg Tablet PO 10 mg DAILY PRN Administration Allergy Symptoms Cholecalciferol 25 mcg 06/04/25 09:00 08/08/25 08:22 Cholecalciferol 25 Mcg Tablet PO 25 mcg DAILY WEST Administration Cyclobenzaprine HCl 10 mg 06/18/25 13:19 08/08/25 08:22 Cyclobenzaprine 10 Mg Tablet PO 10 mg TID PRN Administration Spasms Docusate Sodium 250 - 500 mg 07/02/25 10:35 Docusate Sodium 250 Mg Capsule PO DAILY PRN Constipation Polyethylene Glycol 17 gm 07/02/25 10:34 08/06/25 09:06 Polyethylene Glycol 3350 17 Gm Packet PO 17 gm DAILY PRN Administration Constipation Multivit/Folic Acid/Iron 1 tab 05/25/25 08:00 08/08/25 08:21 Vitamin Tablet PO 1 tab DAILYWM WEST Administration Sodium Chloride 10 ml 05/21/25 14:24 06/18/25 00:14 Sodium Chloride Flush 0.9% 10 Ml Syringe IVP 10 ml PRN PRN Administration NEEDED PER PROVIDER ORDERS Thiamine HCl 100 mg 05/30/25 09:00 08/08/25 08:22 Thiamine 100 Mg Tablet PO 100 mg DAILY WEST Administration Zinc Oxide 113 gm 06/28/25 12:00 08/07/25 08:06 Cod Liver Oil/Zinc Oxide 113 Gm Tube TOP 1 applic PRN PRN Administration Skin Care Objective Vital Signs/Intake & Output Reviewed Vital Signs: Yes Vital Signs: Vital Signs x48h Temp Pulse Resp BP BP Pulse Ox 08/08/25 08:30 36.7 C 125 H 18 182/99 H 162/111 H 95 Intake & Output: Intake & Output 08/05/25 08/06/25 08/07/25 08/08/25 23:59 23:59 23:59 23:59 Intake Total 1040 / 1040 820 / 820 640 / 640 100 / 100 Balance 1040 / 1040 820 / 820 640 / 640 100 / 100 Objective General Appearance: positive No acute distress Eyes Bilateral: positive Normal inspection ENT: positive ENT inspection nml Neck: positive Nml inspection Respiratory: positive No respiratory distress and Breath sounds nml Cardiovascular: positive Regular rate & rhythm Abdomen: positive No distention Skin: positive Color nml, No rash and Dry Extremities: positive Nml appearance and No pedal edema Neurologic/Psychiatric: positive Other (alert) Lab Results 08/08/25 11:32 08/08/25 11:32 Other Labs: Lab Results x24hrs 08/08/25 Range/Units 11:32 WBC 10.9 H (4.8-10.8) x10^3/uL RBC 4.56 (4.20-5.40) 10^6/uL Hgb 14.9 (12.0-16.0) g/dL Hct 45.1 (37.0-47.0) % MCV 98.9 (81.0-99.0) fL MCH 32.7 H (27.0-31.0) pg MCHC 33.0 (32.0-36.0) g/dL RDW 12.6 (12.0-15.0) % Plt Count 371 (130-450) 10^3/uL MPV 10.1 (7.9-10.8) fL Neut # (Auto) 7.6 H (1.5-6.6) 10^3/uL Lymph # (Auto) 1.8 (1.5-3.5) 10^3/uL Ellis # (Auto) 1.4 H (0.0-1.0) 10^3/uL Eos # (Auto) 0.1 (0.0-0.7) 10^3/uL Baso # (Auto) 0.0 (0.0-0.1) 10^3/uL Absolute Nucleated RBC 0.00 x10^3/uL Nucleated RBC % 0.0 /100WBC Sodium 141 (135-145) mmol/L Potassium 3.8 (3.5-4.5) mmol/L Chloride 103 (101-111) mmol/L Carbon Dioxide 29 (21-32) mmol/L Anion Gap 9.0 (6-13) BUN 24 H (6-20) mg/dL Creatinine 0.5 L (0.6-1.3) mg/dL Estimated GFR (MDRD) 126 (>89) Glucose 177 H (74-104) mg/dL Calcium 9.8 (8.5-10.3) mg/dL Sepsis Event Note (H) Evaluation Current Stage of Sepsis: Ruled out Assessment/Plan Problem List (1) Abnormal vital signs: Impression: Selected Entries 08/08/25 08:30 Pulse Rate [Brachial] 125 H Blood Pressure [Left Brachial artery] 182/99 H Tachycardic and hypertensive this AM. reportedly also tearful at times today. As to her emotions, she seems to be unable to engage in any conversations about how she is feeling. She has not shown any other emotions (ie angry outbursts). She does not communicate verbally. Sometimes she will sing along with songs, etc. I am checking VS more often. I have sent CBC, BMP, UA and CXR. CXR shows sequellae of COPD, no infiltrate. CBC shows WBC 10.9. (mild elevation). UA is negative. no skin infections are evident. (2) Polysubstance abuse: Impression: She has been in the hospital since 05/13/2025 UDS on presentation was positive for opiates, amphetamine, methamphetamine, cocaine She is out of the window for any acute withdrawal. She has not had any acute changes in her mental status for at least a week. 06/13: She is having some overall tenseness and hyperactivity, likely a psychomotor side effect of her polysubstance abuse. I am starting Suboxone 8-2 mg SL daily and will monitor for effect versus toxicity 05/20 7: She did not tolerate her dose of Suboxone very well. She was very lethargic through most of yesterday afternoon and is still only responding to pain. Last night I gave her a dose of Narcan with minimal effect. I gave her a liter of IV fluids and sent her for CT head out of an abundance of caution which showed no acute changes. I have discontinued her Suboxone, and I am keeping her on continuous pulse ox to watch for respiratory depression. I have Narcan ordered as needed. Chest x-ray was performed as she had some desaturation requiring 2 L O2. This showed no acute findings. 06/15: Her mentation is much improved today as the Suboxone is washing out of her system. As we do not stock smaller doses of Suboxone, we will likely not pursue this any further. She is back to her mentation as of a few days ago. Remains medically clear. Today is nonbillable rounding 06/16: No change in condition, no change in plan. (3) Altered mental status: Impression: Altered mentation likely secondary to polysubstance abuse UDS on presentation positive for opiates, amphetamine, methamphetamine, cocaine Patient was held in observation, and repeat CT and MRI were performed. MRI shows diffuse white matter hyperintense signal which may represent edema. Not the typical presentation of press Her altered mentation is not affected by her blood pressure, meaning it is not improved whenever her blood pressure is within normal limits Case discussed with neurology on 05/26, who recommended LP, but stated that this is likely sequela of hypoxic event from drug use. thiamine 500 mg IM 3 times daily started on 05 26,for 3 days, now on po thiamine daily 06/06 Daughter Ina made contact with RN. I also spoke with her, at this point, her mother's condition is sub acute. No need for interventions. Ina is aware her mother needs senior care care. She is willing to assist with this, but neither she, nor her mother have a safe place to live. Qualifiers: Altered mental status type: stupor Qualified Code(s): R40.1 - Stupor (4) Pubic bone fracture: Impression: X-ray hip on 05/25 shows moderately displaced right inferior pubic ramus fracture with extension in the medial acetabular column and suspicion for extension to the pelvic ring. Case was discussed with on-call orthopedist, who reports this is nonoperative. She is full weightbearing as tolerated and will need a walker at discharge. If her mentation improves, we will order PT eval, currently not able to particpate with PT. She has been seen 1x for PT, no rehab potentential. She is getting to the chair daily with staff assistance (5) Malnutrition: Impression: Severe protein calorie malnutrition given obvious muscle wasting, loss of subcutaneous fat, bedridden. She is eatiing 100% of meals, with occasional exception. BMI increased from 14.9 to 15.7 to 16.2 to 16.5, This is an improvement. This patient's diagnosis and treatment plan was discussed this AM with attending physician as a part of multi disciplinary rounding meeting. I have spent 28 minutes in the care of this patient today. This includes time [id number], review and ordering of diagnostic imaging and laboratory studies . Monitoring the patient's signs symptoms, evaluation of medication effectiveness and patient's response to treatment. Qualifiers: Malnutrition type: unspecified type Qualified Code(s): E46 - Unspecified protein-calorie malnutrition
[2025-08-08 16:57] LABS: AMORPHOUS SEDIMENT,UR Marked /LPF; GLUCOSE, URINE (UA) NEGATIVE (NEGATIVE); KETONES,URINE (UA) NEGATIVE (NEGATIVE); OCCULT BLOOD,URINE NEGATIVE (NEGATIVE); SQUAMOUS EPITHELIAL CELL,UR RARE Squamous (<= Few)
--- NOTE | 2025-08-09 23:02 | PROVIDER PROGRESS NOTE ---
Subjective Prog Note Date Prog Note Date: 08/09/25 Subjective Subjective: She answer some of my questions today. She smiles responsively at me. When I ask her if the Potter catheter bothers her she says no. Current Medications Current Medications Current Medications: Current Medications Generic Name Dose Route Start Last Admin Trade Name Falguni PRN Reason Stop Dose Admin Acetaminophen 650 mg 05/21/25 14:24 08/09/25 08:16 Acetaminophen 325 Mg Tablet PO 650 mg Q4HR PRN Administration Pain 1 to 4, or Fever Apixaban 2.5 mg 05/29/25 21:00 08/09/25 20:30 Apixaban 2.5 Mg Tablet PO 2.5 mg BID WEST Administration Calcium Carbonate/Glycine 500 mg 06/04/25 09:00 08/09/25 08:17 Calcium Carbonate Chew 500 Mg Tablet PO 500 mg DAILY WEST Administration Cetirizine HCl 10 mg 07/06/25 11:37 08/09/25 08:17 Cetirizine 10 Mg Tablet PO 10 mg DAILY PRN Administration Allergy Symptoms Cholecalciferol 25 mcg 06/04/25 09:00 08/09/25 08:17 Cholecalciferol 25 Mcg Tablet PO 25 mcg DAILY WEST Administration Cyclobenzaprine HCl 10 mg 06/18/25 13:19 08/09/25 08:17 Cyclobenzaprine 10 Mg Tablet PO 10 mg TID PRN Administration Spasms Docusate Sodium 250 - 500 mg 07/02/25 10:35 Docusate Sodium 250 Mg Capsule PO DAILY PRN Constipation Polyethylene Glycol 17 gm 07/02/25 10:34 08/06/25 09:06 Polyethylene Glycol 3350 17 Gm Packet PO 17 gm DAILY PRN Administration Constipation Multivit/Folic Acid/Iron 1 tab 05/25/25 08:00 08/09/25 08:16 Vitamin Tablet PO 1 tab DAILYWM WEST Administration Sodium Chloride 10 ml 05/21/25 14:24 06/18/25 00:14 Sodium Chloride Flush 0.9% 10 Ml Syringe IVP 10 ml PRN PRN Administration NEEDED PER PROVIDER ORDERS Tamsulosin HCl 0.4 mg 08/10/25 09:00 Tamsulosin 0.4 Mg Capsule PO DAILY WEST Thiamine HCl 100 mg 05/30/25 09:00 08/09/25 08:17 Thiamine 100 Mg Tablet PO 100 mg DAILY WEST Administration Zinc Oxide 113 gm 06/28/25 12:00 08/09/25 08:17 Cod Liver Oil/Zinc Oxide 113 Gm Tube TOP 1 applic PRN PRN Administration Skin Care Objective Vital Signs/Intake & Output Reviewed Vital Signs: Yes Vital Signs: Vital Signs x48h Temp Pulse Resp BP BP Pulse Ox 08/08/25 08:30 36.7 C 125 H 18 182/99 H 162/111 H 95 Intake & Output: Intake & Output 08/06/25 08/07/25 08/08/25 08/09/25 23:59 23:59 23:59 23:59 Intake Total 820 / 820 640 / 640 1730 / 1730 1680 / 1680 Output Total 450 / 450 Balance 820 / 820 640 / 640 1730 / 1730 1230 / 1230 Weight (kg) 46.5 kg Objective General Appearance: positive No acute distress Eyes Bilateral: positive Normal inspection ENT: positive ENT inspection nml Neck: positive Nml inspection Respiratory: positive No respiratory distress and Breath sounds nml Cardiovascular: positive Regular rate & rhythm Abdomen: positive No distention Skin: positive Color nml, No rash and Dry Extremities: positive Nml appearance and No pedal edema Neurologic/Psychiatric: positive Other (alert) Lab Results 08/08/25 11:32 08/08/25 11:32 Other Labs: Lab Results x24hrs 08/08/25 Range/Units 11:32 WBC 10.9 H (4.8-10.8) x10^3/uL RBC 4.56 (4.20-5.40) 10^6/uL Hgb 14.9 (12.0-16.0) g/dL Hct 45.1 (37.0-47.0) % MCV 98.9 (81.0-99.0) fL MCH 32.7 H (27.0-31.0) pg MCHC 33.0 (32.0-36.0) g/dL RDW 12.6 (12.0-15.0) % Plt Count 371 (130-450) 10^3/uL MPV 10.1 (7.9-10.8) fL Neut # (Auto) 7.6 H (1.5-6.6) 10^3/uL Lymph # (Auto) 1.8 (1.5-3.5) 10^3/uL [place] # (Auto) 1.4 H (0.0-1.0) 10^3/uL Eos # (Auto) 0.1 (0.0-0.7) 10^3/uL Baso # (Auto) 0.0 (0.0-0.1) 10^3/uL Absolute Nucleated RBC 0.00 x10^3/uL Nucleated RBC % 0.0 /100WBC Sodium 141 (135-145) mmol/L Potassium 3.8 (3.5-4.5) mmol/L Chloride 103 (101-111) mmol/L Carbon Dioxide 29 (21-32) mmol/L Anion Gap 9.0 (6-13) BUN 24 H (6-20) mg/dL Creatinine 0.5 L (0.6-1.3) mg/dL Estimated GFR (MDRD) 126 (>89) Glucose 177 H (74-104) mg/dL Calcium 9.8 (8.5-10.3) mg/dL Sepsis Event Note (H) Evaluation Current Stage of Sepsis: Ruled out Assessment/Plan Problem List (1) Abnormal vital signs: Impression: Selected Entries 08/08/25 08:30 Pulse Rate [Brachial] 125 H Blood Pressure [Left Brachial artery] 182/99 H She had some tachycardia and hypertension on the . I did an infectious workup which was overall unremarkable. However today it became apparent that she was in urinary retention. A Potter was placed and she seems more comfortable and relaxed. I think it is likely that her tachycardia and hypotension was due to urinary retention I have sent CBC, BMP, UA and CXR. CXR shows sequellae of COPD, no infiltrate. CBC shows WBC 10.9. (mild elevation). UA is negative. no skin infections are evident. (2) Polysubstance abuse: Impression: She has been in the hospital since 05/13/2025 UDS on presentation was positive for opiates, amphetamine, methamphetamine, cocaine She is out of the window for any acute withdrawal. She has not had any acute changes in her mental status for at least a week. 06/13: She is having some overall tenseness and hyperactivity, likely a psychomotor side effect of her polysubstance abuse. I am starting Suboxone 8-2 mg SL daily and will monitor for effect versus toxicity 05/20 7: She did not tolerate her dose of Suboxone very well. She was very lethargic through most of yesterday afternoon and is still only responding to pain. Last night I gave her a dose of Narcan with minimal effect. I gave her a liter of IV fluids and sent her for CT head out of an abundance of caution which showed no acute changes. I have discontinued her Suboxone, and I am keeping her on continuous pulse ox to watch for respiratory depression. I have Narcan ordered as needed. Chest x-ray was performed as she had some desaturation requiring 2 L O2. This showed no acute findings. 06/15: Her mentation is much improved today as the Suboxone is washing out of her system. As we do not stock smaller doses of Suboxone, we will likely not pursue this any further. She is back to her mentation as of a few days ago. Remains medically clear. Today is nonbillable rounding 06/16: No change in condition, no change in plan. (3) Altered mental status: Impression: Altered mentation likely secondary to polysubstance abuse UDS on presentation positive for opiates, amphetamine, methamphetamine, cocaine Patient was held in observation, and repeat CT and MRI were performed. MRI shows diffuse white matter hyperintense signal which may represent edema. Not the typical presentation of press Her altered mentation is not affected by her blood pressure, meaning it is not improved whenever her blood pressure is within normal limits Case discussed with neurology on 05/26, who recommended LP, but stated that this is likely sequela of hypoxic event from drug use. thiamine 500 mg IM 3 times daily started on 05 26,for 3 days, now on po thiamine daily 06/06 Daughter Ina made contact with RN. I also spoke with her, at this point, her mother's condition is sub acute. No need for interventions. 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 She is willing to assist with this, but neither she, nor her mother have a safe place to live. Qualifiers: Altered mental status type: stupor Qualified Code(s): R40.1 - Stupor (4) Pubic bone fracture: Impression: X-ray hip on 05/25 shows moderately displaced right inferior pubic ramus fracture with extension in the medial acetabular column and suspicion for extension to the pelvic ring. Case was discussed with on-call orthopedist, who reports this is nonoperative. She is full weightbearing as tolerated and will need a walker at discharge. If her mentation improves, we will order PT jesús, currently not able to particpate with PT. She has been seen 1x for PT, no rehab potentential. She is getting to the chair daily with staff assistance (5) Malnutrition: Impression: Severe protein calorie malnutrition given obvious muscle wasting, loss of subcutaneous fat, bedridden. She is eatiing 100% of meals, with occasional exception. BMI increased from 14.9 to 15.7 to 16.2 to 16.5, This is an improvement. This patient's diagnosis and treatment plan was discussed this AM with attending physician as a part of multi disciplinary rounding meeting. I have spent 26 minutes in the care of this patient today. This includes time [id number], monitoring the patient's signs symptoms, evaluation of medication effectiveness and patient's response to treatment. Qualifiers: Malnutrition type: unspecified type Qualified Code(s): E46 - Unspecified protein-calorie malnutrition
[2025-08-10] MEDS: TAMSULOSIN 0.4 MG CAPSULE PO SCH (08:39)
--- NOTE | 2025-08-10 20:11 | PROVIDER PROGRESS NOTE ---
Subjective Prog Note Date Prog Note Date: 08/10/25 Subjective Subjective: Potter placed for retention. She has been more calm since that, but has pulled it out once. I think that she does not mean to do so, but is always moving and gripping at things. Current Medications Current Medications Current Medications: Current Medications Generic Name Dose Route Start Last Admin Trade Name Falguni PRN Reason Stop Dose Admin Acetaminophen 650 mg 05/21/25 14:24 08/10/25 07:50 Acetaminophen 325 Mg Tablet PO 650 mg Q4HR PRN Administration Pain 1 to 4, or Fever Apixaban 2.5 mg 05/29/25 21:00 08/10/25 08:39 Apixaban 2.5 Mg Tablet PO 2.5 mg BID WEST Administration Calcium Carbonate/Glycine 500 mg 06/04/25 09:00 08/10/25 08:39 Calcium Carbonate Chew 500 Mg Tablet PO 500 mg DAILY WEST Administration Cetirizine HCl 10 mg 07/06/25 11:37 08/09/25 08:17 Cetirizine 10 Mg Tablet PO 10 mg DAILY PRN Administration Allergy Symptoms Cholecalciferol 25 mcg 06/04/25 09:00 08/10/25 08:39 Cholecalciferol 25 Mcg Tablet PO 25 mcg DAILY WEST Administration Cyclobenzaprine HCl 10 mg 06/18/25 13:19 08/09/25 08:17 Cyclobenzaprine 10 Mg Tablet PO 10 mg TID PRN Administration Spasms Docusate Sodium 250 - 500 mg 07/02/25 10:35 Docusate Sodium 250 Mg Capsule PO DAILY PRN Constipation Polyethylene Glycol 17 gm 07/02/25 10:34 08/06/25 09:06 Polyethylene Glycol 3350 17 Gm Packet PO 17 gm DAILY PRN Administration Constipation Multivit/Folic Acid/Iron 1 tab 05/25/25 08:00 08/10/25 08:39 Vitamin Tablet PO 1 tab DAILYWM WEST Administration Sodium Chloride 10 ml 05/21/25 14:24 06/18/25 00:14 Sodium Chloride Flush 0.9% 10 Ml Syringe IVP 10 ml PRN PRN Administration NEEDED PER PROVIDER ORDERS Tamsulosin HCl 0.4 mg 08/10/25 09:00 08/10/25 08:39 Tamsulosin 0.4 Mg Capsule PO 0.4 mg DAILY WEST Administration Thiamine HCl 100 mg 05/30/25 09:00 08/10/25 08:39 Thiamine 100 Mg Tablet PO 100 mg DAILY WEST Administration Zinc Oxide 113 gm 06/28/25 12:00 08/09/25 08:17 Cod Liver Oil/Zinc Oxide 113 Gm Tube TOP 1 applic PRN PRN Administration Skin Care Objective Vital Signs/Intake & Output Reviewed Vital Signs: Yes Vital Signs: Vital Signs x48h Temp Pulse Resp BP Pulse Ox 08/10/25 15:45 36.7 C 100 24 129/81 95 Intake & Output: Intake & Output 08/07/25 08/08/25 08/09/25 08/10/25 23:59 23:59 23:59 23:59 Intake Total 640 / 640 1730 / 1730 1680 / 1680 1077 / 1077 Output Total 450 / 450 875 / 875 Balance 640 / 640 1730 / 1730 1230 / 1230 202 / 202 Weight (kg) 46.5 kg Objective General Appearance: positive No acute distress Eyes Bilateral: positive Normal inspection ENT: positive ENT inspection nml Neck: positive Nml inspection Respiratory: positive No respiratory distress and Breath sounds nml Cardiovascular: positive Regular rate & rhythm Abdomen: positive No distention Skin: positive Color nml, No rash and Dry Extremities: positive Nml appearance and No pedal edema Neurologic/Psychiatric: positive Other (alert) Lab Results 08/08/25 11:32 08/08/25 11:32 Other Labs: Lab Results x24hrs 08/08/25 Range/Units 11:32 WBC 10.9 H (4.8-10.8) x10^3/uL RBC 4.56 (4.20-5.40) 10^6/uL Hgb 14.9 (12.0-16.0) g/dL Hct 45.1 (37.0-47.0) % MCV 98.9 (81.0-99.0) fL MCH 32.7 H (27.0-31.0) pg MCHC 33.0 (32.0-36.0) g/dL RDW 12.6 (12.0-15.0) % Plt Count 371 (130-450) 10^3/uL MPV 10.1 (7.9-10.8) fL Neut # (Auto) 7.6 H (1.5-6.6) 10^3/uL Lymph # (Auto) 1.8 (1.5-3.5) 10^3/uL [place] # (Auto) 1.4 H (0.0-1.0) 10^3/uL Eos # (Auto) 0.1 (0.0-0.7) 10^3/uL Baso # (Auto) 0.0 (0.0-0.1) 10^3/uL Absolute Nucleated RBC 0.00 x10^3/uL Nucleated RBC % 0.0 /100WBC Sodium 141 (135-145) mmol/L Potassium 3.8 (3.5-4.5) mmol/L Chloride 103 (101-111) mmol/L Carbon Dioxide 29 (21-32) mmol/L Anion Gap 9.0 (6-13) BUN 24 H (6-20) mg/dL Creatinine 0.5 L (0.6-1.3) mg/dL Estimated GFR (MDRD) 126 (>89) Glucose 177 H (74-104) mg/dL Calcium 9.8 (8.5-10.3) mg/dL Sepsis Event Note (H) Evaluation Current Stage of Sepsis: Ruled out Assessment/Plan Problem List (1) Abnormal vital signs: Impression: S She had some tachycardia and hypertension on the . I did an infectious workup which was overall unremarkable. It then became apparent that she was in urinary retention. A Potter was placed and she seems more comfortable and relaxed. I think it is likely that her tachycardia and hypertension was due to urinary retention (2) Polysubstance abuse: Impression: She has been in the hospital since 05/13/2025 UDS on presentation was positive for opiates, amphetamine, methamphetamine, cocaine She is out of the window for any acute withdrawal. She has not had any acute changes in her mental status for at least a week. 06/13: She is having some overall tenseness and hyperactivity, likely a psychomotor side effect of her polysubstance abuse. I am starting Suboxone 8-2 mg SL daily and will monitor for effect versus toxicity 05/20 7: She did not tolerate her dose of Suboxone very well. She was very lethargic through most of yesterday afternoon and is still only responding to pain. Last night I gave her a dose of Narcan with minimal effect. I gave her a liter of IV fluids and sent her for CT head out of an abundance of caution which showed no acute changes. I have discontinued her Suboxone, and I am keeping her on continuous pulse ox to watch for respiratory depression. I have Narcan ordered as needed. Chest x-ray was performed as she had some desaturation requiring 2 L O2. This showed no acute findings. 06/15: Her mentation is much improved today as the Suboxone is washing out of her system. As we do not stock smaller doses of Suboxone, we will likely not pursue this any further. She is back to her mentation as of a few days ago. Remains medically clear. Today is nonbillable rounding 06/16: No change in condition, no change in plan. (3) Altered mental status: Impression: Altered mentation likely secondary to polysubstance abuse UDS on presentation positive for opiates, amphetamine, methamphetamine, cocaine Patient was held in observation, and repeat CT and MRI were performed. MRI shows diffuse white matter hyperintense signal which may represent edema. Not the typical presentation of press Her altered mentation is not affected by her blood pressure, meaning it is not improved whenever her blood pressure is within normal limits Case discussed with neurology on 05/26, who recommended LP, but stated that this is likely sequela of hypoxic event from drug use. thiamine 500 mg IM 3 times daily started on 05 26,for 3 days, now on po thiamine daily 06/06 Daughter Ina made contact with RN. I also spoke with her, at this point, her mother's condition is sub acute. No need for interventions. Ina is aware her mother needs shelter care. She is willing to assist with this, but neither she, nor her mother have a safe place to live. Qualifiers: Altered mental status type: stupor Qualified Code(s): R40.1 - Stupor (4) Pubic bone fracture: Impression: X-ray hip on 05/25 shows moderately displaced right inferior pubic ramus fracture with extension in the medial acetabular column and suspicion for extension to the pelvic ring. Case was discussed with on-call orthopedist, who reports this is nonoperative. She is full weightbearing as tolerated and will need a walker at discharge. If her mentation improves, we will order PT jesús, currently not able to particpate with PT. She has been seen 1x for PT, no rehab potentential. She is getting to the chair daily with staff assistance (5) Malnutrition: Impression: Severe protein calorie malnutrition given obvious muscle wasting, loss of subcutaneous fat, bedridden. She is eatiing 100% of meals, with occasional exception. BMI increased from 14.9 to 15.7 to 16.2 to 16.5, This is an improvement. This patient's diagnosis and treatment plan was discussed this AM with attending physician as a part of multi disciplinary rounding meeting. non billable rounding. Qualifiers: Malnutrition type: unspecified type Qualified Code(s): E46 - Unspecified protein-calorie malnutrition
--- NOTE | 2025-08-11 13:29 | Speech Therapy Plan of Care ---
DIAGNOSIS Date of Service Date of Service: 08/11/25 Diagnosis: ALTERED MENTAL STATUS MEDICAL/SURGICAL PAST HISTORY Past History Medical History (Updated 08/08/25 @ 14:13 by ROSENDO Garcia) Patient denies medical problems Surgical History (Updated 10/11/24 @ 14:55 by Carlyle Webber RN) No pertinent past surgical history SPEECH ASSESSMENT Assessment: Ms. Murphy is a 59-year-old female admitted in May of 2025 with altered mental status. She is currently receiving a PO diet of pureed solids (IDDSI Level 4) and thin liquids (IDDSI Level 0). Speech therapy consult placed to evaluate for possibility of diet upgrade. The patient was seen in bed alert but mildly agitated, observed manipulating items such as her straw and bed sheet. She was oriented to self only and presented with limited verbal output. The patient was unable to reliably answer simple yes/no questions or follow basic 1-step commands, often laughing if she was unsure how to respond, indicating significant cognitive-communicative impairment at this time. Oral [facility] exam was limited d/t poor auditory comprehension but significant for absent/missing dentition. Pt unable to complete most volitional actions during this exam. Swallowing Trials: Ice chips 1 (IDDSI Level 2) Cup sip of water 1 (IDDSI Level 0) Straw sips of tea 10 (including 4 consecutive swallows) (IDDSI Level 0) Chocolate pudding 3 (IDDSI Level 4) Cristino cracker piece with pudding 1 (IDDSI Level 7 Regular + Level 4) notable for prolonged oral manipulation/impaired mastication prior to swallow; second presentation was refused. Patient demonstrated a functional swallow with puree and thin liquids, with mild oral phase dysphagia, characterized by prolonged oral manipulation, particularly with mixed textures likely secondary to absent/missing dentition (no dentures located at bedside), impacting mastication. Pt presents with limited auditory comprehension and processing, reducing safety with more advanced textures Though she was able to manage one bite of cristino cracker with pudding, her prolonged oral prep and subsequent refusal of a second trial indicate poor tolerance for advancing texture at this time. No overt signs of aspiration were observed; however, her cognitive-linguistic impairments, poor dentition and prior history of pocketing solid textures and medication present significant safety risks with more complex textures. Recommendations: Continue current pureed diet with thin liquids, with PO meds crushed in puree. Patient is not appropriate for skilled dysphagia therapy due to current cognitive status. Please re-consult [facility] if cognitive and/or functional status improves, or if swallow function deteriorates.
--- NOTE | 2025-08-11 23:09 | PROVIDER PROGRESS NOTE ---
Subjective Prog Note Date Prog Note Date: 08/11/25 Subjective Pt reports feeling: No change Current Medications Current Medications Current Medications: Current Medications Generic Name Dose Route Start Last Admin Trade Name Falguni PRN Reason Stop Dose Admin Acetaminophen 650 mg 05/21/25 14:24 08/11/25 08:06 Acetaminophen 325 Mg Tablet PO 650 mg Q4HR PRN Administration Pain 1 to 4, or Fever Apixaban 2.5 mg 05/29/25 21:00 08/11/25 20:28 Apixaban 2.5 Mg Tablet PO 2.5 mg BID WEST Administration Calcium Carbonate/Glycine 500 mg 06/04/25 09:00 08/11/25 08:06 Calcium Carbonate Chew 500 Mg Tablet PO 500 mg DAILY WEST Administration Cetirizine HCl 10 mg 07/06/25 11:37 08/09/25 08:17 Cetirizine 10 Mg Tablet PO 10 mg DAILY PRN Administration Allergy Symptoms Cholecalciferol 25 mcg 06/04/25 09:00 08/11/25 08:07 Cholecalciferol 25 Mcg Tablet PO 25 mcg DAILY WEST Administration Cyclobenzaprine HCl 10 mg 06/18/25 13:19 08/09/25 08:17 Cyclobenzaprine 10 Mg Tablet PO 10 mg TID PRN Administration Spasms Docusate Sodium 250 - 500 mg 07/02/25 10:35 Docusate Sodium 250 Mg Capsule PO DAILY PRN Constipation Polyethylene Glycol 17 gm 07/02/25 10:34 08/06/25 09:06 Polyethylene Glycol 3350 17 Gm Packet PO 17 gm DAILY PRN Administration Constipation Multivit/Folic Acid/Iron 1 tab 05/25/25 08:00 08/11/25 08:07 Vitamin Tablet PO 1 tab DAILYWM WEST Administration Sodium Chloride 10 ml 05/21/25 14:24 06/18/25 00:14 Sodium Chloride Flush 0.9% 10 Ml Syringe IVP 10 ml PRN PRN Administration NEEDED PER PROVIDER ORDERS Tamsulosin HCl 0.4 mg 08/10/25 09:00 08/11/25 08:06 Tamsulosin 0.4 Mg Capsule PO 0.4 mg DAILY WEST Administration Thiamine HCl 100 mg 05/30/25 09:00 08/11/25 08:06 Thiamine 100 Mg Tablet PO 100 mg DAILY WEST Administration Zinc Oxide 113 gm 06/28/25 12:00 08/11/25 00:58 Cod Liver Oil/Zinc Oxide 113 Gm Tube TOP 1 applic PRN PRN Administration Skin Care Objective Vital Signs/Intake & Output Reviewed Vital Signs: Yes Vital Signs: Vital Signs x48h Temp Pulse Resp BP Pulse Ox 08/11/25 17:16 36.6 C 102 H 20 141/94 H 94 Intake & Output: Intake & Output 08/08/25 08/09/25 08/10/25 08/11/25 23:59 23:59 23:59 23:59 Intake Total 1730 / 1730 1680 / 1680 1437 / 1437 1080 / 1080 Output Total 450 / 450 1475 / 1475 2100 / 2100 Balance 1730 / 1730 1230 / 1230 -38 / -38 -1020 / -1020 Weight (kg) 46.5 kg Objective General Appearance: positive No acute distress Eyes Bilateral: positive Normal inspection ENT: positive ENT inspection nml Neck: positive Nml inspection Respiratory: positive No respiratory distress Abdomen: positive No distention Skin: positive Color nml, No rash and Dry Extremities: positive Nml appearance and No pedal edema Neurologic/Psychiatric: positive Other (alert) Lab Results 08/08/25 11:32 08/08/25 11:32 Other Labs: Lab Results x24hrs 08/08/25 Range/Units 11:32 WBC 10.9 H (4.8-10.8) x10^3/uL RBC 4.56 (4.20-5.40) 10^6/uL Hgb 14.9 (12.0-16.0) g/dL Hct 45.1 (37.0-47.0) % MCV 98.9 (81.0-99.0) fL MCH 32.7 H (27.0-31.0) pg MCHC 33.0 (32.0-36.0) g/dL RDW 12.6 (12.0-15.0) % Plt Count 371 (130-450) 10^3/uL MPV 10.1 (7.9-10.8) fL Neut # (Auto) 7.6 H (1.5-6.6) 10^3/uL Lymph # (Auto) 1.8 (1.5-3.5) 10^3/uL [place] # (Auto) 1.4 H (0.0-1.0) 10^3/uL Eos # (Auto) 0.1 (0.0-0.7) 10^3/uL Baso # (Auto) 0.0 (0.0-0.1) 10^3/uL Absolute Nucleated RBC 0.00 x10^3/uL Nucleated RBC % 0.0 /100WBC Sodium 141 (135-145) mmol/L Potassium 3.8 (3.5-4.5) mmol/L Chloride 103 (101-111) mmol/L Carbon Dioxide 29 (21-32) mmol/L Anion Gap 9.0 (6-13) BUN 24 H (6-20) mg/dL Creatinine 0.5 L (0.6-1.3) mg/dL Estimated GFR (MDRD) 126 (>89) Glucose 177 H (74-104) mg/dL Calcium 9.8 (8.5-10.3) mg/dL Sepsis Event Note (H) Evaluation Current Stage of Sepsis: Ruled out Assessment/Plan Problem List (1) Abnormal vital signs: Impression: She had some tachycardia and hypertension on the . I did an infectious workup which was overall unremarkable. It then became apparent that she was in urinary retention. A Potter was placed and she seems more comfortable and relaxed. I think it is likely that her tachycardia and hypertension was due to urinary retention, but difficult to say, as it is persistent. No fever. (2) Polysubstance abuse: Impression: She has been in the hospital since 05/13/2025 UDS on presentation was positive for opiates, amphetamine, methamphetamine, cocaine She is out of the window for any acute withdrawal. She has not had any acute changes in her mental status for at least a week. 06/13: She is having some overall tenseness and hyperactivity, likely a psychomotor side effect of her polysubstance abuse. I am starting Suboxone 8-2 mg SL daily and will monitor for effect versus toxicity 05/20 7: She did not tolerate her dose of Suboxone very well. She was very lethargic through most of yesterday afternoon and is still only responding to pain. Last night I gave her a dose of Narcan with minimal effect. I gave her a liter of IV fluids and sent her for CT head out of an abundance of caution which showed no acute changes. I have discontinued her Suboxone, and I am keeping her on continuous pulse ox to watch for respiratory depression. I have Narcan ordered as needed. Chest x-ray was performed as she had some desaturation requiring 2 L O2. This showed no acute findings. 06/15: Her mentation is much improved today as the Suboxone is washing out of her system. As we do not stock smaller doses of Suboxone, we will likely not pursue this any further. She is back to her mentation as of a few days ago. Remains medically clear. Today is nonbillable rounding 06/16: No change in condition, no change in plan. (3) Altered mental status: Impression: Altered mentation likely secondary to polysubstance abuse UDS on presentation positive for opiates, amphetamine, methamphetamine, cocaine Patient was held in observation, and repeat CT and MRI were performed. MRI shows diffuse white matter hyperintense signal which may represent edema. Not the typical presentation of press Her altered mentation is not affected by her blood pressure, meaning it is not improved whenever her blood pressure is within normal limits Case discussed with neurology on 05/26, who recommended LP, but stated that this is likely sequela of hypoxic event from drug use. thiamine 500 mg IM 3 times daily started on 05 26,for 3 days, now on po thiamine daily 06/06 Daughter Ina made contact with RN. I also spoke with her, at this point, her mother's condition is sub acute. No need for interventions. Ina is aware her mother needs halfway care. She is willing to assist with this, but neither she, nor her mother have a safe place to live. Qualifiers: Altered mental status type: stupor Qualified Code(s): R40.1 - Stupor (4) Pubic bone fracture: Impression: X-ray hip on 05/25 shows moderately displaced right inferior pubic ramus fracture with extension in the medial acetabular column and suspicion for extension to the pelvic ring. Case was discussed with on-call orthopedist, who reports this is nonoperative. She is full weightbearing as tolerated and will need a walker at discharge. If her mentation improves, we will order PT eval, currently not able to particpate with PT. She has been seen 1x for PT, no rehab potentential. She is getting to the chair daily with staff assistance (5) Malnutrition: Impression: Severe protein calorie malnutrition given obvious muscle wasting, loss of subcutaneous fat, bedridden. She is eatiing 100% of meals, with occasional exception. BMI increased from 14.9 to 15.7 to 16.2 to 16.5, This is an improvement. This patient's diagnosis and treatment plan was discussed this AM with attending physician as a part of multi disciplinary rounding meeting. non billable rounding. Qualifiers: Malnutrition type: unspecified type Qualified Code(s): E46 - Unspecified protein-calorie malnutrition
--- NOTE | 2025-08-12 15:52 | PROVIDER PROGRESS NOTE ---
Subjective Prog Note Date Prog Note Date: 08/12/25 Subjective Pt reports feeling: No change Current Medications Current Medications Current Medications: Current Medications Generic Name Dose Route Start Last Admin Trade Name Falguni PRN Reason Stop Dose Admin Acetaminophen 650 mg 05/21/25 14:24 08/12/25 13:33 Acetaminophen 325 Mg Tablet PO 650 mg Q4HR PRN Administration Pain 1 to 4, or Fever Apixaban 2.5 mg 05/29/25 21:00 08/12/25 08:42 Apixaban 2.5 Mg Tablet PO 2.5 mg BID WEST Administration Calcium Carbonate/Glycine 500 mg 06/04/25 09:00 08/12/25 08:42 Calcium Carbonate Chew 500 Mg Tablet PO 500 mg DAILY WEST Administration Cetirizine HCl 10 mg 07/06/25 11:37 08/09/25 08:17 Cetirizine 10 Mg Tablet PO 10 mg DAILY PRN Administration Allergy Symptoms Cholecalciferol 25 mcg 06/04/25 09:00 08/12/25 08:42 Cholecalciferol 25 Mcg Tablet PO 25 mcg DAILY WEST Administration Cyclobenzaprine HCl 10 mg 06/18/25 13:19 08/09/25 08:17 Cyclobenzaprine 10 Mg Tablet PO 10 mg TID PRN Administration Spasms Docusate Sodium 250 - 500 mg 07/02/25 10:35 Docusate Sodium 250 Mg Capsule PO DAILY PRN Constipation Polyethylene Glycol 17 gm 07/02/25 10:34 08/06/25 09:06 Polyethylene Glycol 3350 17 Gm Packet PO 17 gm DAILY PRN Administration Constipation Multivit/Folic Acid/Iron 1 tab 05/25/25 08:00 08/12/25 08:42 Vitamin Tablet PO 1 tab DAILYWM WEST Administration Sodium Chloride 10 ml 05/21/25 14:24 06/18/25 00:14 Sodium Chloride Flush 0.9% 10 Ml Syringe IVP 10 ml PRN PRN Administration NEEDED PER PROVIDER ORDERS Tamsulosin HCl 0.4 mg 08/10/25 09:00 08/12/25 08:42 Tamsulosin 0.4 Mg Capsule PO 0.4 mg DAILY WEST Administration Thiamine HCl 100 mg 05/30/25 09:00 08/12/25 08:42 Thiamine 100 Mg Tablet PO 100 mg DAILY WEST Administration Zinc Oxide 113 gm 06/28/25 12:00 08/11/25 00:58 Cod Liver Oil/Zinc Oxide 113 Gm Tube TOP 1 applic PRN PRN Administration Skin Care Objective Vital Signs/Intake & Output Reviewed Vital Signs: Yes Vital Signs: Vital Signs x48h Temp Pulse Resp BP Pulse Ox 08/11/25 17:16 36.6 C 102 H 20 141/94 H 94 Intake & Output: Intake & Output 08/09/25 08/10/25 08/11/25 08/12/25 23:59 23:59 23:59 23:59 Intake Total 1680 / 1680 1437 / 1437 1080 / 1080 240 / 240 Output Total 450 / 450 1475 / 1475 2100 / 2100 1300 / 1300 Balance 1230 / 1230 -38 / -38 -1020 / -1020 -1060 / -1060 Objective General Appearance: positive No acute distress Eyes Bilateral: positive Normal inspection ENT: positive ENT inspection nml Neck: positive Nml inspection Respiratory: positive No respiratory distress Abdomen: positive No distention Skin: positive Color nml, No rash and Dry Extremities: positive Nml appearance and No pedal edema Neurologic/Psychiatric: positive Other (alert) Lab Results 08/08/25 11:32 08/08/25 11:32 Other Labs: Lab Results x24hrs 08/08/25 Range/Units 11:32 WBC 10.9 H (4.8-10.8) x10^3/uL RBC 4.56 (4.20-5.40) 10^6/uL Hgb 14.9 (12.0-16.0) g/dL Hct 45.1 (37.0-47.0) % MCV 98.9 (81.0-99.0) fL MCH 32.7 H (27.0-31.0) pg MCHC 33.0 (32.0-36.0) g/dL RDW 12.6 (12.0-15.0) % Plt Count 371 (130-450) 10^3/uL MPV 10.1 (7.9-10.8) fL Neut # (Auto) 7.6 H (1.5-6.6) 10^3/uL Lymph # (Auto) 1.8 (1.5-3.5) 10^3/uL [place] # (Auto) 1.4 H (0.0-1.0) 10^3/uL Eos # (Auto) 0.1 (0.0-0.7) 10^3/uL Baso # (Auto) 0.0 (0.0-0.1) 10^3/uL Absolute Nucleated RBC 0.00 x10^3/uL Nucleated RBC % 0.0 /100WBC Sodium 141 (135-145) mmol/L Potassium 3.8 (3.5-4.5) mmol/L Chloride 103 (101-111) mmol/L Carbon Dioxide 29 (21-32) mmol/L Anion Gap 9.0 (6-13) BUN 24 H (6-20) mg/dL Creatinine 0.5 L (0.6-1.3) mg/dL Estimated GFR (MDRD) 126 (>89) Glucose 177 H (74-104) mg/dL Calcium 9.8 (8.5-10.3) mg/dL Sepsis Event Note (H) Evaluation Current Stage of Sepsis: Ruled out Assessment/Plan Problem List (1) Polysubstance abuse: Impression: She has been in the hospital since 05/13/2025 UDS on presentation was positive for opiates, amphetamine, methamphetamine, cocaine She is out of the window for any acute withdrawal. She has not had any acute changes in her mental status for at least a week. 06/13: She is having some overall tenseness and hyperactivity, likely a psychomotor side effect of her polysubstance abuse. I am starting Suboxone 8-2 mg SL daily and will monitor for effect versus toxicity 05/20 7: She did not tolerate her dose of Suboxone very well. She was very lethargic through most of yesterday afternoon and is still only responding to pain. Last night I gave her a dose of Narcan with minimal effect. I gave her a liter of IV fluids and sent her for CT head out of an abundance of caution which showed no acute changes. I have discontinued her Suboxone, and I am keeping her on continuous pulse ox to watch for respiratory depression. I have Narcan ordered as needed. Chest x-ray was performed as she had some desaturation requiring 2 L O2. This showed no acute findings. 06/15: Her mentation is much improved today as the Suboxone is washing out of her system. As we do not stock smaller doses of Suboxone, we will likely not pursue this any further. She is back to her mentation as of a few days ago. Remains medically clear. Today is nonbillable rounding 06/16: No change in condition, no change in plan. (2) Abnormal vital signs: Impression: VSS on no BP or rate controlling medications (3) Altered mental status: Impression: Altered mentation likely secondary to polysubstance abuse UDS on presentation positive for opiates, amphetamine, methamphetamine, cocaine Patient was held in observation, and repeat CT and MRI were performed. MRI shows diffuse white matter hyperintense signal which may represent edema. Not the typical presentation of press Her altered mentation is not affected by her blood pressure, meaning it is not improved whenever her blood pressure is within normal limits Case discussed with neurology on 05/26, who recommended LP, but stated that this is likely sequela of hypoxic event from drug use. thiamine 500 mg IM 3 times daily started on 05 26,for 3 days, now on po thiamine daily 06/06 Daughter Ina made contact with RN. I also spoke with her, at this point, her mother's condition is sub acute. No need for interventions. Ina is aware her mother needs [facility] care. She is willing to assist with this, but neither she, nor her mother have a safe place to live. Qualifiers: Altered mental status type: stupor Qualified Code(s): R40.1 - Stupor (4) Pubic bone fracture: Impression: X-ray hip on 05/25 shows moderately displaced right inferior pubic ramus fracture with extension in the medial acetabular column and suspicion for extension to the pelvic ring. Case was discussed with on-call orthopedist, who reports this is nonoperative. She is full weightbearing as tolerated and will need a walker at discharge. If her mentation improves, we will order PT jesús, currently not able to particpate with PT. She has been seen 1x for PT, no rehab potentential. She is getting to the chair daily with staff assistance (5) Malnutrition: Impression: Severe protein calorie malnutrition given obvious muscle wasting, loss of subcutaneous fat, bedridden. She is eating 100% of meals, with occasional exception. BMI increased from 14.9 to 15.7 to 16.2 to 16.5, This is an improvement. This patient's diagnosis and treatment plan was discussed this AM with attending physician as a part of multi disciplinary rounding meeting. non billable rounding. Qualifiers: Malnutrition type: unspecified type Qualified Code(s): E46 - Unspecified protein-calorie malnutrition
--- NOTE | 2025-08-13 11:35 | PROVIDER PROGRESS NOTE ---
Subjective Prog Note Date Prog Note Date: 08/13/25 Subjective Pt reports feeling: No change Current Medications Current Medications Current Medications: Current Medications Generic Name Dose Route Start Last Admin Trade Name Falguni PRN Reason Stop Dose Admin Acetaminophen 650 mg 05/21/25 14:24 08/12/25 13:33 Acetaminophen 325 Mg Tablet PO 650 mg Q4HR PRN Administration Pain 1 to 4, or Fever Apixaban 2.5 mg 05/29/25 21:00 08/13/25 08:41 Apixaban 2.5 Mg Tablet PO 2.5 mg BID WEST Administration Calcium Carbonate/Glycine 500 mg 06/04/25 09:00 08/13/25 08:41 Calcium Carbonate Chew 500 Mg Tablet PO 500 mg DAILY WEST Administration Cetirizine HCl 10 mg 07/06/25 11:37 08/09/25 08:17 Cetirizine 10 Mg Tablet PO 10 mg DAILY PRN Administration Allergy Symptoms Cholecalciferol 25 mcg 06/04/25 09:00 08/13/25 08:41 Cholecalciferol 25 Mcg Tablet PO 25 mcg DAILY WEST Administration Cyclobenzaprine HCl 10 mg 06/18/25 13:19 08/09/25 08:17 Cyclobenzaprine 10 Mg Tablet PO 10 mg TID PRN Administration Spasms Docusate Sodium 250 - 500 mg 07/02/25 10:35 Docusate Sodium 250 Mg Capsule PO DAILY PRN Constipation Polyethylene Glycol 17 gm 07/02/25 10:34 08/06/25 09:06 Polyethylene Glycol 3350 17 Gm Packet PO 17 gm DAILY PRN Administration Constipation Multivit/Folic Acid/Iron 1 tab 05/25/25 08:00 08/13/25 08:41 Vitamin Tablet PO 1 tab DAILYWM WEST Administration Sodium Chloride 10 ml 05/21/25 14:24 06/18/25 00:14 Sodium Chloride Flush 0.9% 10 Ml Syringe IVP 10 ml PRN PRN Administration NEEDED PER PROVIDER ORDERS Tamsulosin HCl 0.4 mg 08/10/25 09:00 08/13/25 08:41 Tamsulosin 0.4 Mg Capsule PO 0.4 mg DAILY WEST Administration Thiamine HCl 100 mg 05/30/25 09:00 08/13/25 08:41 Thiamine 100 Mg Tablet PO 100 mg DAILY WEST Administration Zinc Oxide 113 gm 06/28/25 12:00 08/11/25 00:58 Cod Liver Oil/Zinc Oxide 113 Gm Tube TOP 1 applic PRN PRN Administration Skin Care Objective Vital Signs/Intake & Output Reviewed Vital Signs: Yes Vital Signs: Vital Signs x48h Temp Pulse Resp BP Pulse Ox 08/13/25 08:15 36.5 C 122 H 18 144/95 H 95 Intake & Output: Intake & Output 08/10/25 08/11/25 08/12/25 08/13/25 23:59 23:59 23:59 23:59 Intake Total 1437 / 1437 1080 / 1080 840 / 840 120 / 120 Output Total 1475 / 1475 2100 / 2100 1825 / 1825 Balance -38 / -38 -1020 / -1020 -985 / -985 120 / 120 Objective General Appearance: positive No acute distress Eyes Bilateral: positive Normal inspection ENT: positive ENT inspection nml Neck: positive Nml inspection Respiratory: positive No respiratory distress Abdomen: positive No distention Skin: positive Color nml, No rash and Dry Extremities: positive Nml appearance and No pedal edema Neurologic/Psychiatric: positive Other (alert) Lab Results 08/08/25 11:32 08/08/25 11:32 Other Labs: Lab Results x24hrs 08/08/25 Range/Units 11:32 WBC 10.9 H (4.8-10.8) x10^3/uL RBC 4.56 (4.20-5.40) 10^6/uL Hgb 14.9 (12.0-16.0) g/dL Hct 45.1 (37.0-47.0) % MCV 98.9 (81.0-99.0) fL MCH 32.7 H (27.0-31.0) pg MCHC 33.0 (32.0-36.0) g/dL RDW 12.6 (12.0-15.0) % Plt Count 371 (130-450) 10^3/uL MPV 10.1 (7.9-10.8) fL Neut # (Auto) 7.6 H (1.5-6.6) 10^3/uL Lymph # (Auto) 1.8 (1.5-3.5) 10^3/uL [place] # (Auto) 1.4 H (0.0-1.0) 10^3/uL Eos # (Auto) 0.1 (0.0-0.7) 10^3/uL Baso # (Auto) 0.0 (0.0-0.1) 10^3/uL Absolute Nucleated RBC 0.00 x10^3/uL Nucleated RBC % 0.0 /100WBC Sodium 141 (135-145) mmol/L Potassium 3.8 (3.5-4.5) mmol/L Chloride 103 (101-111) mmol/L Carbon Dioxide 29 (21-32) mmol/L Anion Gap 9.0 (6-13) BUN 24 H (6-20) mg/dL Creatinine 0.5 L (0.6-1.3) mg/dL Estimated GFR (MDRD) 126 (>89) Glucose 177 H (74-104) mg/dL Calcium 9.8 (8.5-10.3) mg/dL Sepsis Event Note (H) Evaluation Current Stage of Sepsis: Ruled out Assessment/Plan Problem List (1) Polysubstance abuse: Impression: She has been in the hospital since 05/13/2025 UDS on presentation was positive for opiates, amphetamine, methamphetamine, cocaine She is out of the window for any acute withdrawal. She has not had any acute changes in her mental status for at least a week. 06/13: She is having some overall tenseness and hyperactivity, likely a psychomotor side effect of her polysubstance abuse. I am starting Suboxone 8-2 mg SL daily and will monitor for effect versus toxicity 05/20 7: She did not tolerate her dose of Suboxone very well. She was very lethargic through most of yesterday afternoon and is still only responding to pain. Last night I gave her a dose of Narcan with minimal effect. I gave her a liter of IV fluids and sent her for CT head out of an abundance of caution which showed no acute changes. I have discontinued her Suboxone, and I am keeping her on continuous pulse ox to watch for respiratory depression. I have Narcan ordered as needed. Chest x-ray was performed as she had some desaturation requiring 2 L O2. This showed no acute findings. 06/15: Her mentation is much improved today as the Suboxone is washing out of her system. As we do not stock smaller doses of Suboxone, we will likely not pursue this any further. She is back to her mentation as of a few days ago. Remains medically clear. Today is nonbillable rounding 06/16: No change in condition, no change in plan. (2) Abnormal vital signs: Impression: VSS on no BP or rate controlling medications (3) Altered mental status: Impression: Altered mentation likely secondary to polysubstance abuse UDS on presentation positive for opiates, amphetamine, methamphetamine, cocaine Patient was held in observation, and repeat CT and MRI were performed. MRI shows diffuse white matter hyperintense signal which may represent edema. Not the typical presentation of press Her altered mentation is not affected by her blood pressure, meaning it is not improved whenever her blood pressure is within normal limits Case discussed with neurology on 05/26, who recommended LP, but stated that this is likely sequela of hypoxic event from drug use. thiamine 500 mg IM 3 times daily started on 05 26,for 3 days, now on po thiamine daily 06/06 Daughter Ina made contact with RN. I also spoke with her, at this point, her mother's condition is sub acute. No need for interventions. Ina is aware her mother needs [facility] care. She is willing to assist with this, but neither she, nor her mother have a safe place to live. Qualifiers: Altered mental status type: stupor Qualified Code(s): R40.1 - Stupor (4) Pubic bone fracture: Impression: X-ray hip on 05/25 shows moderately displaced right inferior pubic ramus fracture with extension in the medial acetabular column and suspicion for extension to the pelvic ring. Case was discussed with on-call orthopedist, who reports this is nonoperative. She is full weightbearing as tolerated and will need a walker at discharge. If her mentation improves, we will order PT jesús, currently not able to particpate with PT. She has been seen 1x for PT, no rehab potentential. She is getting to the chair daily with staff assistance (5) Malnutrition: Impression: Severe protein calorie malnutrition given obvious muscle wasting, loss of subcutaneous fat, bedridden. She is eating 100% of meals, with occasional exception. BMI increased from 14.9 to 15.7 to 16.2 to 16.5, This is an improvement. This patient's diagnosis and treatment plan was discussed this AM with attending physician as a part of multi disciplinary rounding meeting. non billable rounding. Qualifiers: Malnutrition type: unspecified type Qualified Code(s): E46 - Unspecified protein-calorie malnutrition
--- NOTE | 2025-08-14 11:30 | PROVIDER PROGRESS NOTE ---
Subjective Prog Note Date Prog Note Date: 08/14/25 Subjective Pt reports feeling: No change Current Medications Current Medications Current Medications: Current Medications Generic Name Dose Route Start Last Admin Trade Name Falguni PRN Reason Stop Dose Admin Acetaminophen 650 mg 05/21/25 14:24 08/14/25 02:04 Acetaminophen 325 Mg Tablet PO 650 mg Q4HR PRN Administration Pain 1 to 4, or Fever Apixaban 2.5 mg 05/29/25 21:00 08/14/25 08:18 Apixaban 2.5 Mg Tablet PO 2.5 mg BID WEST Administration Calcium Carbonate/Glycine 500 mg 06/04/25 09:00 08/14/25 08:17 Calcium Carbonate Chew 500 Mg Tablet PO 500 mg DAILY WEST Administration Cetirizine HCl 10 mg 07/06/25 11:37 08/09/25 08:17 Cetirizine 10 Mg Tablet PO 10 mg DAILY PRN Administration Allergy Symptoms Cholecalciferol 25 mcg 06/04/25 09:00 08/14/25 08:17 Cholecalciferol 25 Mcg Tablet PO 25 mcg DAILY WEST Administration Cyclobenzaprine HCl 10 mg 06/18/25 13:19 08/14/25 02:04 Cyclobenzaprine 10 Mg Tablet PO 10 mg TID PRN Administration Spasms Docusate Sodium 250 - 500 mg 07/02/25 10:35 Docusate Sodium 250 Mg Capsule PO DAILY PRN Constipation Polyethylene Glycol 17 gm 07/02/25 10:34 08/06/25 09:06 Polyethylene Glycol 3350 17 Gm Packet PO 17 gm DAILY PRN Administration Constipation Multivit/Folic Acid/Iron 1 tab 05/25/25 08:00 08/14/25 08:17 Vitamin Tablet PO 1 tab DAILYWM WEST Administration Sodium Chloride 10 ml 05/21/25 14:24 06/18/25 00:14 Sodium Chloride Flush 0.9% 10 Ml Syringe IVP 10 ml PRN PRN Administration NEEDED PER PROVIDER ORDERS Tamsulosin HCl 0.4 mg 08/10/25 09:00 08/14/25 08:18 Tamsulosin 0.4 Mg Capsule PO 0.4 mg DAILY WEST Administration Thiamine HCl 100 mg 05/30/25 09:00 08/14/25 08:17 Thiamine 100 Mg Tablet PO 100 mg DAILY WEST Administration Zinc Oxide 113 gm 06/28/25 12:00 08/14/25 02:04 Cod Liver Oil/Zinc Oxide 113 Gm Tube TOP 1 applic PRN PRN Administration Skin Care Objective Vital Signs/Intake & Output Reviewed Vital Signs: Yes Vital Signs: Vital Signs x48h Temp Pulse Resp BP Pulse Ox 08/14/25 07:41 36.6 C 111 H 18 136/95 H 93 Intake & Output: Intake & Output 08/11/25 08/12/25 08/13/25 08/14/25 23:59 23:59 23:59 23:59 Intake Total 1080 / 1080 840 / 840 940 / 940 120 / 120 Output Total 2100 / 2100 1825 / 1825 Balance -1020 / -1020 -985 / -985 940 / 940 120 / 120 Objective General Appearance: positive No acute distress Eyes Bilateral: positive Normal inspection ENT: positive ENT inspection nml Neck: positive Nml inspection Respiratory: positive No respiratory distress Abdomen: positive No distention Skin: positive Color nml, No rash and Dry Extremities: positive Nml appearance and No pedal edema Neurologic/Psychiatric: positive Other (alert) Lab Results 08/08/25 11:32 08/08/25 11:32 Other Labs: Lab Results x24hrs 08/08/25 Range/Units 11:32 WBC 10.9 H (4.8-10.8) x10^3/uL RBC 4.56 (4.20-5.40) 10^6/uL Hgb 14.9 (12.0-16.0) g/dL Hct 45.1 (37.0-47.0) % MCV 98.9 (81.0-99.0) fL MCH 32.7 H (27.0-31.0) pg MCHC 33.0 (32.0-36.0) g/dL RDW 12.6 (12.0-15.0) % Plt Count 371 (130-450) 10^3/uL MPV 10.1 (7.9-10.8) fL Neut # (Auto) 7.6 H (1.5-6.6) 10^3/uL Lymph # (Auto) 1.8 (1.5-3.5) 10^3/uL [place] # (Auto) 1.4 H (0.0-1.0) 10^3/uL Eos # (Auto) 0.1 (0.0-0.7) 10^3/uL Baso # (Auto) 0.0 (0.0-0.1) 10^3/uL Absolute Nucleated RBC 0.00 x10^3/uL Nucleated RBC % 0.0 /100WBC Sodium 141 (135-145) mmol/L Potassium 3.8 (3.5-4.5) mmol/L Chloride 103 (101-111) mmol/L Carbon Dioxide 29 (21-32) mmol/L Anion Gap 9.0 (6-13) BUN 24 H (6-20) mg/dL Creatinine 0.5 L (0.6-1.3) mg/dL Estimated GFR (MDRD) 126 (>89) Glucose 177 H (74-104) mg/dL Calcium 9.8 (8.5-10.3) mg/dL Sepsis Event Note (H) Evaluation Current Stage of Sepsis: Ruled out Assessment/Plan Problem List (1) Polysubstance abuse: Impression: She has been in the hospital since 05/13/2025 UDS on presentation was positive for opiates, amphetamine, methamphetamine, cocaine She is out of the window for any acute withdrawal. She has not had any acute changes in her mental status for at least a week. 06/13: She is having some overall tenseness and hyperactivity, likely a psychomotor side effect of her polysubstance abuse. I am starting Suboxone 8-2 mg SL daily and will monitor for effect versus toxicity 05/20 7: She did not tolerate her dose of Suboxone very well. She was very lethargic through most of yesterday afternoon and is still only responding to pain. Last night I gave her a dose of Narcan with minimal effect. I gave her a liter of IV fluids and sent her for CT head out of an abundance of caution which showed no acute changes. I have discontinued her Suboxone, and I am keeping her on continuous pulse ox to watch for respiratory depression. I have Narcan ordered as needed. Chest x-ray was performed as she had some desaturation requiring 2 L O2. This showed no acute findings. 06/15: Her mentation is much improved today as the Suboxone is washing out of her system. As we do not stock smaller doses of Suboxone, we will likely not pursue this any further. She is back to her mentation as of a few days ago. Remains medically clear. Today is nonbillable rounding 06/16: No change in condition, no change in plan. (2) Abnormal vital signs: Impression: VSS on no BP or rate controlling medications (3) Altered mental status: Impression: Altered mentation likely secondary to polysubstance abuse UDS on presentation positive for opiates, amphetamine, methamphetamine, cocaine Patient was held in observation, and repeat CT and MRI were performed. MRI shows diffuse white matter hyperintense signal which may represent edema. Not the typical presentation of press Her altered mentation is not affected by her blood pressure, meaning it is not improved whenever her blood pressure is within normal limits Case discussed with neurology on 05/26, who recommended LP, but stated that this is likely sequela of hypoxic event from drug use. thiamine 500 mg IM 3 times daily started on 05 26,for 3 days, now on po thiamine daily 06/06 Daughter Ina made contact with RN. I also spoke with her, at this point, her mother's condition is sub acute. No need for interventions. Ina is aware her mother needs long chain quiller tender care. She is willing to assist with this, but neither she, nor her mother have a safe place to live. Qualifiers: Altered mental status type: stupor Qualified Code(s): R40.1 - Stupor (4) Pubic bone fracture: Impression: X-ray hip on 05/25 shows moderately displaced right inferior pubic ramus fracture with extension in the medial acetabular column and suspicion for extension to the pelvic ring. Case was discussed with on-call orthopedist, who reports this is nonoperative. She is full weightbearing as tolerated and will need a walker at discharge. If her mentation improves, we will order PT jesús, currently not able to particpate with PT. She has been seen 1x for PT, no rehab potentential. She is getting to the chair daily with staff assistance (5) Malnutrition: Impression: Severe protein calorie malnutrition given obvious muscle wasting, loss of subcutaneous fat, bedridden. She is eating 100% of meals, with occasional exception. BMI increased from 14.9 to 15.7 to 16.2 to 16.5, This is an improvement. This patient's diagnosis and treatment plan was discussed this AM with attending physician as a part of multi disciplinary rounding meeting. non billable rounding. Qualifiers: Malnutrition type: unspecified type Qualified Code(s): E46 - Unspecified protein-calorie malnutrition
--- NOTE | 2025-08-15 14:23 | PROVIDER PROGRESS NOTE ---
Subjective Prog Note Date Prog Note Date: 08/15/25 Subjective Pt reports feeling: No change Current Medications Current Medications Current Medications: Current Medications Generic Name Dose Route Start Last Admin Trade Name Falguni PRN Reason Stop Dose Admin Acetaminophen 650 mg 05/21/25 14:24 08/14/25 02:04 Acetaminophen 325 Mg Tablet PO 650 mg Q4HR PRN Administration Pain 1 to 4, or Fever Apixaban 2.5 mg 05/29/25 21:00 08/15/25 09:05 Apixaban 2.5 Mg Tablet PO 2.5 mg BID WEST Administration Calcium Carbonate/Glycine 500 mg 06/04/25 09:00 08/15/25 09:05 Calcium Carbonate Chew 500 Mg Tablet PO 500 mg DAILY WEST Administration Cetirizine HCl 10 mg 07/06/25 11:37 08/15/25 09:05 Cetirizine 10 Mg Tablet PO 10 mg DAILY PRN Administration Allergy Symptoms Cholecalciferol 25 mcg 06/04/25 09:00 08/15/25 09:05 Cholecalciferol 25 Mcg Tablet PO 25 mcg DAILY WEST Administration Cyclobenzaprine HCl 10 mg 06/18/25 13:19 08/14/25 02:04 Cyclobenzaprine 10 Mg Tablet PO 10 mg TID PRN Administration Spasms Docusate Sodium 250 - 500 mg 07/02/25 10:35 Docusate Sodium 250 Mg Capsule PO DAILY PRN Constipation Polyethylene Glycol 17 gm 07/02/25 10:34 08/06/25 09:06 Polyethylene Glycol 3350 17 Gm Packet PO 17 gm DAILY PRN Administration Constipation Multivit/Folic Acid/Iron 1 tab 05/25/25 08:00 08/15/25 09:05 Vitamin Tablet PO 1 tab DAILYWM WEST Administration Sodium Chloride 10 ml 05/21/25 14:24 06/18/25 00:14 Sodium Chloride Flush 0.9% 10 Ml Syringe IVP 10 ml PRN PRN Administration NEEDED PER PROVIDER ORDERS Tamsulosin HCl 0.4 mg 08/10/25 09:00 08/15/25 09:05 Tamsulosin 0.4 Mg Capsule PO 0.4 mg DAILY WEST Administration Thiamine HCl 100 mg 05/30/25 09:00 08/15/25 09:05 Thiamine 100 Mg Tablet PO 100 mg DAILY WEST Administration Zinc Oxide 113 gm 06/28/25 12:00 08/15/25 02:00 Cod Liver Oil/Zinc Oxide 113 Gm Tube TOP 1 applic PRN PRN Administration Skin Care Objective Vital Signs/Intake & Output Reviewed Vital Signs: Yes Vital Signs: Vital Signs x48h Temp Pulse Resp BP Pulse Ox 08/15/25 09:00 36.6 C 102 H 18 140/111 H 96 Intake & Output: Intake & Output 08/12/25 08/13/25 08/14/25 08/15/25 23:59 23:59 23:59 23:59 Intake Total 840 / 840 940 / 940 1350 / 1350 360 / 360 Output Total 1825 / 1825 Balance -985 / -985 940 / 940 1350 / 1350 360 / 360 Objective General Appearance: positive No acute distress Eyes Bilateral: positive Normal inspection ENT: positive ENT inspection nml Neck: positive Nml inspection Respiratory: positive No respiratory distress Abdomen: positive No distention Skin: positive Color nml, No rash and Dry Extremities: positive Nml appearance and No pedal edema Neurologic/Psychiatric: positive Other (alert) Lab Results 08/08/25 11:32 08/08/25 11:32 Other Labs: Lab Results x24hrs 08/08/25 Range/Units 11:32 WBC 10.9 H (4.8-10.8) x10^3/uL RBC 4.56 (4.20-5.40) 10^6/uL Hgb 14.9 (12.0-16.0) g/dL Hct 45.1 (37.0-47.0) % MCV 98.9 (81.0-99.0) fL MCH 32.7 H (27.0-31.0) pg MCHC 33.0 (32.0-36.0) g/dL RDW 12.6 (12.0-15.0) % Plt Count 371 (130-450) 10^3/uL MPV 10.1 (7.9-10.8) fL Neut # (Auto) 7.6 H (1.5-6.6) 10^3/uL Lymph # (Auto) 1.8 (1.5-3.5) 10^3/uL [place] # (Auto) 1.4 H (0.0-1.0) 10^3/uL Eos # (Auto) 0.1 (0.0-0.7) 10^3/uL Baso # (Auto) 0.0 (0.0-0.1) 10^3/uL Absolute Nucleated RBC 0.00 x10^3/uL Nucleated RBC % 0.0 /100WBC Sodium 141 (135-145) mmol/L Potassium 3.8 (3.5-4.5) mmol/L Chloride 103 (101-111) mmol/L Carbon Dioxide 29 (21-32) mmol/L Anion Gap 9.0 (6-13) BUN 24 H (6-20) mg/dL Creatinine 0.5 L (0.6-1.3) mg/dL Estimated GFR (MDRD) 126 (>89) Glucose 177 H (74-104) mg/dL Calcium 9.8 (8.5-10.3) mg/dL Sepsis Event Note (H) Evaluation Current Stage of Sepsis: Ruled out Assessment/Plan Problem List (1) Polysubstance abuse: Impression: She has been in the hospital since 05/13/2025 UDS on presentation was positive for opiates, amphetamine, methamphetamine, cocaine She is out of the window for any acute withdrawal. She has not had any acute changes in her mental status for at least a week. 06/13: She is having some overall tenseness and hyperactivity, likely a psychomotor side effect of her polysubstance abuse. I am starting Suboxone 8-2 mg SL daily and will monitor for effect versus toxicity 05/20 7: She did not tolerate her dose of Suboxone very well. She was very lethargic through most of yesterday afternoon and is still only responding to pain. Last night I gave her a dose of Narcan with minimal effect. I gave her a liter of IV fluids and sent her for CT head out of an abundance of caution which showed no acute changes. I have discontinued her Suboxone, and I am keeping her on continuous pulse ox to watch for respiratory depression. I have Narcan ordered as needed. Chest x-ray was performed as she had some desaturation requiring 2 L O2. This showed no acute findings. 06/15: Her mentation is much improved today as the Suboxone is washing out of her system. As we do not stock smaller doses of Suboxone, we will likely not pursue this any further. She is back to her mentation as of a few days ago. Remains medically clear. Today is nonbillable rounding 06/16: No change in condition, no change in plan. (2) Abnormal vital signs: Impression: VSS on no BP or rate controlling medications (3) Altered mental status: Impression: Altered mentation likely secondary to polysubstance abuse UDS on presentation positive for opiates, amphetamine, methamphetamine, cocaine Patient was held in observation, and repeat CT and MRI were performed. MRI shows diffuse white matter hyperintense signal which may represent edema. Not the typical presentation of press Her altered mentation is not affected by her blood pressure, meaning it is not improved whenever her blood pressure is within normal limits Case discussed with neurology on 05/26, who recommended LP, but stated that this is likely sequela of hypoxic event from drug use. thiamine 500 mg IM 3 times daily started on 05 26,for 3 days, now on po thiamine daily 06/06 Daughter Ina made contact with RN. I also spoke with her, at this point, her mother's condition is sub acute. No need for interventions. Ina is aware her mother needs fpc care. She is willing to assist with this, but neither she, nor her mother have a safe place to live. Qualifiers: Altered mental status type: stupor Qualified Code(s): R40.1 - Stupor (4) Pubic bone fracture: Impression: X-ray hip on 05/25 shows moderately displaced right inferior pubic ramus fracture with extension in the medial acetabular column and suspicion for extension to the pelvic ring. Case was discussed with on-call orthopedist, who reports this is nonoperative. She is full weightbearing as tolerated and will need a walker at discharge. If her mentation improves, we will order PT jesús, currently not able to particpate with PT. She has been seen 1x for PT, no rehab potentential. She is getting to the chair daily with staff assistance (5) Malnutrition: Impression: Severe protein calorie malnutrition given obvious muscle wasting, loss of subcutaneous fat, bedridden. She is eating 100% of meals, with occasional exception. BMI increased from 14.9 to 15.7 to 16.2 to 16.5, This is an improvement. This patient's diagnosis and treatment plan was discussed this AM with attending physician as a part of multi disciplinary rounding meeting. non billable rounding. Qualifiers: Malnutrition type: unspecified type Qualified Code(s): E46 - Unspecified protein-calorie malnutrition
--- NOTE | 2025-08-16 12:35 | PROVIDER PROGRESS NOTE ---
Subjective Prog Note Date Prog Note Date: 08/16/25 Subjective Pt reports feeling: No change Current Medications Current Medications Current Medications: Current Medications Generic Name Dose Route Start Last Admin Trade Name Falguni PRN Reason Stop Dose Admin Acetaminophen 650 mg 05/21/25 14:24 08/14/25 02:04 Acetaminophen 325 Mg Tablet PO 650 mg Q4HR PRN Administration Pain 1 to 4, or Fever Apixaban 2.5 mg 05/29/25 21:00 08/16/25 08:47 Apixaban 2.5 Mg Tablet PO 2.5 mg BID WEST Administration Calcium Carbonate/Glycine 500 mg 06/04/25 09:00 08/16/25 08:47 Calcium Carbonate Chew 500 Mg Tablet PO 500 mg DAILY WEST Administration Cetirizine HCl 10 mg 07/06/25 11:37 08/16/25 08:47 Cetirizine 10 Mg Tablet PO 10 mg DAILY PRN Administration Allergy Symptoms Cholecalciferol 25 mcg 06/04/25 09:00 08/16/25 08:47 Cholecalciferol 25 Mcg Tablet PO 25 mcg DAILY WEST Administration Cyclobenzaprine HCl 10 mg 06/18/25 13:19 08/14/25 02:04 Cyclobenzaprine 10 Mg Tablet PO 10 mg TID PRN Administration Spasms Docusate Sodium 250 - 500 mg 07/02/25 10:35 Docusate Sodium 250 Mg Capsule PO DAILY PRN Constipation Polyethylene Glycol 17 gm 07/02/25 10:34 08/06/25 09:06 Polyethylene Glycol 3350 17 Gm Packet PO 17 gm DAILY PRN Administration Constipation Multivit/Folic Acid/Iron 1 tab 05/25/25 08:00 08/16/25 08:47 Vitamin Tablet PO 1 tab DAILYWM WEST Administration Sodium Chloride 10 ml 05/21/25 14:24 06/18/25 00:14 Sodium Chloride Flush 0.9% 10 Ml Syringe IVP 10 ml PRN PRN Administration NEEDED PER PROVIDER ORDERS Tamsulosin HCl 0.4 mg 08/10/25 09:00 08/16/25 08:47 Tamsulosin 0.4 Mg Capsule PO 0.4 mg DAILY WEST Administration Thiamine HCl 100 mg 05/30/25 09:00 08/16/25 08:47 Thiamine 100 Mg Tablet PO 100 mg DAILY WEST Administration Zinc Oxide 113 gm 06/28/25 12:00 08/16/25 00:33 Cod Liver Oil/Zinc Oxide 113 Gm Tube TOP 1 applic PRN PRN Administration Skin Care Objective Vital Signs/Intake & Output Reviewed Vital Signs: Yes Vital Signs: Vital Signs x48h Temp Pulse Resp BP Pulse Ox 08/16/25 09:00 36.5 C 115 H 18 141/104 H 93 Intake & Output: Intake & Output 08/13/25 08/14/25 08/15/25 08/16/25 23:59 23:59 23:59 23:59 Intake Total 940 / 940 1350 / 1350 880 / 880 200 / 200 Balance 940 / 940 1350 / 1350 880 / 880 200 / 200 Weight (kg) 48 kg Objective General Appearance: positive No acute distress Eyes Bilateral: positive Normal inspection ENT: positive ENT inspection nml Neck: positive Nml inspection Respiratory: positive No respiratory distress Abdomen: positive No distention Skin: positive Color nml, No rash and Dry Extremities: positive Nml appearance and No pedal edema Neurologic/Psychiatric: positive Other (alert) Lab Results 08/08/25 11:32 08/08/25 11:32 Other Labs: Lab Results x24hrs 08/08/25 Range/Units 11:32 WBC 10.9 H (4.8-10.8) x10^3/uL RBC 4.56 (4.20-5.40) 10^6/uL Hgb 14.9 (12.0-16.0) g/dL Hct 45.1 (37.0-47.0) % MCV 98.9 (81.0-99.0) fL MCH 32.7 H (27.0-31.0) pg MCHC 33.0 (32.0-36.0) g/dL RDW 12.6 (12.0-15.0) % Plt Count 371 (130-450) 10^3/uL MPV 10.1 (7.9-10.8) fL Neut # (Auto) 7.6 H (1.5-6.6) 10^3/uL Lymph # (Auto) 1.8 (1.5-3.5) 10^3/uL [place] # (Auto) 1.4 H (0.0-1.0) 10^3/uL Eos # (Auto) 0.1 (0.0-0.7) 10^3/uL Baso # (Auto) 0.0 (0.0-0.1) 10^3/uL Absolute Nucleated RBC 0.00 x10^3/uL Nucleated RBC % 0.0 /100WBC Sodium 141 (135-145) mmol/L Potassium 3.8 (3.5-4.5) mmol/L Chloride 103 (101-111) mmol/L Carbon Dioxide 29 (21-32) mmol/L Anion Gap 9.0 (6-13) BUN 24 H (6-20) mg/dL Creatinine 0.5 L (0.6-1.3) mg/dL Estimated GFR (MDRD) 126 (>89) Glucose 177 H (74-104) mg/dL Calcium 9.8 (8.5-10.3) mg/dL Sepsis Event Note (H) Evaluation Current Stage of Sepsis: Ruled out Assessment/Plan Problem List (1) Polysubstance abuse: Impression: She has been in the hospital since 05/13/2025 UDS on presentation was positive for opiates, amphetamine, methamphetamine, cocaine She is out of the window for any acute withdrawal. She has not had any acute changes in her mental status for at least a week. 06/13: She is having some overall tenseness and hyperactivity, likely a psychomotor side effect of her polysubstance abuse. I am starting Suboxone 8-2 mg SL daily and will monitor for effect versus toxicity 05/20 7: She did not tolerate her dose of Suboxone very well. She was very lethargic through most of yesterday afternoon and is still only responding to pain. Last night I gave her a dose of Narcan with minimal effect. I gave her a liter of IV fluids and sent her for CT head out of an abundance of caution which showed no acute changes. I have discontinued her Suboxone, and I am keeping her on continuous pulse ox to watch for respiratory depression. I have Narcan ordered as needed. Chest x-ray was performed as she had some desaturation requiring 2 L O2. This showed no acute findings. 06/15: Her mentation is much improved today as the Suboxone is washing out of her system. As we do not stock smaller doses of Suboxone, we will likely not pursue this any further. She is back to her mentation as of a few days ago. Remains medically clear. Today is nonbillable rounding 06/16: No change in condition, no change in plan. (2) Abnormal vital signs: Impression: VSS on no BP or rate controlling medications (3) Altered mental status: Impression: Altered mentation likely secondary to polysubstance abuse UDS on presentation positive for opiates, amphetamine, methamphetamine, cocaine Patient was held in observation, and repeat CT and MRI were performed. MRI shows diffuse white matter hyperintense signal which may represent edema. Not the typical presentation of press Her altered mentation is not affected by her blood pressure, meaning it is not improved whenever her blood pressure is within normal limits Case discussed with neurology on 05/26, who recommended LP, but stated that this is likely sequela of hypoxic event from drug use. thiamine 500 mg IM 3 times daily started on 05 26,for 3 days, now on po thiamine daily 06/06 Daughter Ina made contact with RN. I also spoke with her, at this point, her mother's condition is sub acute. No need for interventions. Ina is aware her mother needs group home care. She is willing to assist with this, but neither she, nor her mother have a safe place to live. Qualifiers: Altered mental status type: stupor Qualified Code(s): R40.1 - Stupor (4) Pubic bone fracture: Impression: X-ray hip on 05/25 shows moderately displaced right inferior pubic ramus fracture with extension in the medial acetabular column and suspicion for extension to the pelvic ring. Case was discussed with on-call orthopedist, who reports this is nonoperative. She is full weightbearing as tolerated and will need a walker at discharge. If her mentation improves, we will order PT jesús, currently not able to particpate with PT. She has been seen 1x for PT, no rehab potentential. She is getting to the chair daily with staff assistance (5) Malnutrition: Impression: Severe protein calorie malnutrition given obvious muscle wasting, loss of subcutaneous fat, bedridden. She is eating 100% of meals, with occasional exception. BMI increased from 14.9 to 15.7 to 16.2 to 16.5, This is an improvement. This patient's diagnosis and treatment plan was discussed this AM with attending physician as a part of multi disciplinary rounding meeting. non billable rounding. Qualifiers: Malnutrition type: unspecified type Qualified Code(s): E46 - Unspecified protein-calorie malnutrition
--- NOTE | 2025-08-17 12:30 | PROVIDER PROGRESS NOTE ---
Subjective Prog Note Date Prog Note Date: 08/17/25 Subjective Pt reports feeling: No change Current Medications Current Medications Current Medications: Current Medications Generic Name Dose Route Start Last Admin Trade Name Falguni PRN Reason Stop Dose Admin Acetaminophen 650 mg 05/21/25 14:24 08/16/25 17:06 Acetaminophen 325 Mg Tablet PO 650 mg Q4HR PRN Administration Pain 1 to 4, or Fever Apixaban 2.5 mg 05/29/25 21:00 08/17/25 08:26 Apixaban 2.5 Mg Tablet PO 2.5 mg BID WEST Administration Calcium Carbonate/Glycine 500 mg 06/04/25 09:00 08/17/25 08:26 Calcium Carbonate Chew 500 Mg Tablet PO 500 mg DAILY WEST Administration Cetirizine HCl 10 mg 07/06/25 11:37 08/17/25 08:26 Cetirizine 10 Mg Tablet PO 10 mg DAILY PRN Administration Allergy Symptoms Cholecalciferol 25 mcg 06/04/25 09:00 08/17/25 08:26 Cholecalciferol 25 Mcg Tablet PO 25 mcg DAILY WEST Administration Cyclobenzaprine HCl 10 mg 06/18/25 13:19 08/16/25 17:06 Cyclobenzaprine 10 Mg Tablet PO 10 mg TID PRN Administration Spasms Docusate Sodium 250 - 500 mg 07/02/25 10:35 Docusate Sodium 250 Mg Capsule PO DAILY PRN Constipation Polyethylene Glycol 17 gm 07/02/25 10:34 08/06/25 09:06 Polyethylene Glycol 3350 17 Gm Packet PO 17 gm DAILY PRN Administration Constipation Multivit/Folic Acid/Iron 1 tab 05/25/25 08:00 08/17/25 08:25 Vitamin Tablet PO 1 tab DAILYWM WEST Administration Sodium Chloride 10 ml 05/21/25 14:24 06/18/25 00:14 Sodium Chloride Flush 0.9% 10 Ml Syringe IVP 10 ml PRN PRN Administration NEEDED PER PROVIDER ORDERS Tamsulosin HCl 0.4 mg 08/10/25 09:00 08/17/25 08:26 Tamsulosin 0.4 Mg Capsule PO 0.4 mg DAILY WEST Administration Thiamine HCl 100 mg 05/30/25 09:00 08/17/25 08:26 Thiamine 100 Mg Tablet PO 100 mg DAILY WEST Administration Zinc Oxide 113 gm 06/28/25 12:00 08/17/25 08:26 Cod Liver Oil/Zinc Oxide 113 Gm Tube TOP 1 applic PRN PRN Administration Skin Care Objective Vital Signs/Intake & Output Reviewed Vital Signs: Yes Vital Signs: Vital Signs x48h Temp Pulse Resp BP Pulse Ox 08/17/25 09:00 36.7 C 128 H 28 H 112/73 98 Intake & Output: Intake & Output 08/14/25 08/15/25 08/16/25 08/17/25 23:59 23:59 23:59 23:59 Intake Total 1350 / 1350 880 / 880 980 / 980 120 / 120 Balance 1350 / 1350 880 / 880 980 / 980 120 / 120 Weight (kg) 48 kg Objective General Appearance: positive No acute distress Eyes Bilateral: positive Normal inspection ENT: positive ENT inspection nml Neck: positive Nml inspection Respiratory: positive No respiratory distress Abdomen: positive No distention Skin: positive Color nml, No rash and Dry Extremities: positive Nml appearance and No pedal edema Neurologic/Psychiatric: positive Other (alert) Lab Results 08/08/25 11:32 08/08/25 11:32 Other Labs: Lab Results x24hrs 08/08/25 Range/Units 11:32 WBC 10.9 H (4.8-10.8) x10^3/uL RBC 4.56 (4.20-5.40) 10^6/uL Hgb 14.9 (12.0-16.0) g/dL Hct 45.1 (37.0-47.0) % MCV 98.9 (81.0-99.0) fL MCH 32.7 H (27.0-31.0) pg MCHC 33.0 (32.0-36.0) g/dL RDW 12.6 (12.0-15.0) % Plt Count 371 (130-450) 10^3/uL MPV 10.1 (7.9-10.8) fL Neut # (Auto) 7.6 H (1.5-6.6) 10^3/uL Lymph # (Auto) 1.8 (1.5-3.5) 10^3/uL [place] # (Auto) 1.4 H (0.0-1.0) 10^3/uL Eos # (Auto) 0.1 (0.0-0.7) 10^3/uL Baso # (Auto) 0.0 (0.0-0.1) 10^3/uL Absolute Nucleated RBC 0.00 x10^3/uL Nucleated RBC % 0.0 /100WBC Sodium 141 (135-145) mmol/L Potassium 3.8 (3.5-4.5) mmol/L Chloride 103 (101-111) mmol/L Carbon Dioxide 29 (21-32) mmol/L Anion Gap 9.0 (6-13) BUN 24 H (6-20) mg/dL Creatinine 0.5 L (0.6-1.3) mg/dL Estimated GFR (MDRD) 126 (>89) Glucose 177 H (74-104) mg/dL Calcium 9.8 (8.5-10.3) mg/dL Sepsis Event Note (H) Evaluation Current Stage of Sepsis: Ruled out Assessment/Plan Problem List (1) Abnormal vital signs: Impression: Heart rates been elevated over the past day, now with tachypnea. Ordered CBC, BMP, EKG. Recent UA with no UTI. (2) Polysubstance abuse: Impression: She has been in the hospital since 05/13/2025 UDS on presentation was positive for opiates, amphetamine, methamphetamine, cocaine She is out of the window for any acute withdrawal. She has not had any acute changes in her mental status for at least a week. 06/13: She is having some overall tenseness and hyperactivity, likely a psychomotor side effect of her polysubstance abuse. I am starting Suboxone 8-2 mg SL daily and will monitor for effect versus toxicity 05/20 7: She did not tolerate her dose of Suboxone very well. She was very lethargic through most of yesterday afternoon and is still only responding to pain. Last night I gave her a dose of Narcan with minimal effect. I gave her a liter of IV fluids and sent her for CT head out of an abundance of caution which showed no acute changes. I have discontinued her Suboxone, and I am keeping her on continuous pulse ox to watch for respiratory depression. I have Narcan ordered as needed. Chest x-ray was performed as she had some desaturation requiring 2 L O2. This showed no acute findings. 06/15: Her mentation is much improved today as the Suboxone is washing out of her system. As we do not stock smaller doses of Suboxone, we will likely not pursue this any further. She is back to her mentation as of a few days ago. Remains medically clear. Today is nonbillable rounding 06/16: No change in condition, no change in plan. (3) Altered mental status: Impression: Altered mentation likely secondary to polysubstance abuse UDS on presentation positive for opiates, amphetamine, methamphetamine, cocaine Patient was held in observation, and repeat CT and MRI were performed. MRI shows diffuse white matter hyperintense signal which may represent edema. Not the typical presentation of press Her altered mentation is not affected by her blood pressure, meaning it is not improved whenever her blood pressure is within normal limits Case discussed with neurology on 05/26, who recommended LP, but stated that this is likely sequela of hypoxic event from drug use. thiamine 500 mg IM 3 times daily started on 05 26,for 3 days, now on po thiamine daily 06/06 Daughter Ina made contact with RN. I also spoke with her, at this point, her mother's condition is sub acute. No need for interventions. 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 She is willing to assist with this, but neither she, nor her mother have a safe place to live. Qualifiers: Altered mental status type: stupor Qualified Code(s): R40.1 - Stupor (4) Pubic bone fracture: Impression: X-ray hip on 05/25 shows moderately displaced right inferior pubic ramus fracture with extension in the medial acetabular column and suspicion for extension to the pelvic ring. Case was discussed with on-call orthopedist, who reports this is nonoperative. She is full weightbearing as tolerated and will need a walker at discharge. If her mentation improves, we will order PT jesús, currently not able to particpate with PT. She has been seen 1x for PT, no rehab potentential. She is getting to the chair daily with staff assistance (5) Malnutrition: Impression: Severe protein calorie malnutrition given obvious muscle wasting, loss of subcutaneous fat, bedridden. She is eating 100% of meals, with occasional exception. BMI increased from 14.9 to 15.7 to 16.2 to 16.5, This is an improvement. This patient's diagnosis and treatment plan was discussed this AM with attending physician as a part of multi disciplinary rounding meeting. Qualifiers: Malnutrition type: unspecified type Qualified Code(s): E46 - Unspecified protein-calorie malnutrition
[2025-08-17 13:39] LABS: HCT - HEMATOCRIT 44.5 % (37.0-47.0); HGB - HEMOGLOBIN 15.3 g/dL (12.0-16.0); MEAN PLATELET VOLUME 9.8 fL (7.9-10.8); NRBC ABSOLUTE COUNT (AUTO) 0.00 x10^3/uL; NUCLEATED RED BLOOD CELLS AUTO 0.0 /100WBC; PLT - PLATELET COUNT 406 10^3/uL (130-450); RED CELL DISTRIBUTION WIDTH 12.2 % (12.0-15.0)
[2025-08-17 13:55] LABS: BUN - BLOOD UREA NITROGEN 22.0 mg/dL (6-20); CARBON DIOXIDE - CO2 30.0 mmol/L (21-32); CREATININE 0.6 mg/dL (0.6-1.3); GFR - MDRD 102.0 (>89)
--- NOTE | 2025-08-18 11:13 | PROVIDER PROGRESS NOTE ---
Subjective Prog Note Date Prog Note Date: 08/18/25 Subjective Pt reports feeling: No change Current Medications Current Medications Current Medications: Current Medications Generic Name Dose Route Start Last Admin Trade Name Falguni PRN Reason Stop Dose Admin Acetaminophen 650 mg 05/21/25 14:24 08/18/25 09:05 Acetaminophen 325 Mg Tablet PO 650 mg Q4HR PRN Administration Pain 1 to 4, or Fever Apixaban 2.5 mg 05/29/25 21:00 08/18/25 09:05 Apixaban 2.5 Mg Tablet PO 2.5 mg BID WEST Administration Calcium Carbonate/Glycine 500 mg 06/04/25 09:00 08/18/25 09:05 Calcium Carbonate Chew 500 Mg Tablet PO 500 mg DAILY WEST Administration Cetirizine HCl 10 mg 07/06/25 11:37 08/17/25 08:26 Cetirizine 10 Mg Tablet PO 10 mg DAILY PRN Administration Allergy Symptoms Cholecalciferol 25 mcg 06/04/25 09:00 08/18/25 09:05 Cholecalciferol 25 Mcg Tablet PO 25 mcg DAILY WEST Administration Cyclobenzaprine HCl 10 mg 06/18/25 13:19 08/16/25 17:06 Cyclobenzaprine 10 Mg Tablet PO 10 mg TID PRN Administration Spasms Docusate Sodium 250 - 500 mg 07/02/25 10:35 Docusate Sodium 250 Mg Capsule PO DAILY PRN Constipation Lactated Ringer's 1,000 mls @ 999 mls/hr 08/18/25 10:23 Lr IV 08/18/25 11:23 ONCE ONE Lactated Ringer's 1,000 mls @ 999 mls/hr 08/18/25 10:23 Lr IV 08/18/25 11:23 ONCE ONE Polyethylene Glycol 17 gm 07/02/25 10:34 08/06/25 09:06 Polyethylene Glycol 3350 17 Gm Packet PO 17 gm DAILY PRN Administration Constipation Multivit/Folic Acid/Iron 1 tab 05/25/25 08:00 08/18/25 09:05 Vitamin Tablet PO 1 tab DAILYWM WEST Administration Sodium Chloride 10 ml 05/21/25 14:24 06/18/25 00:14 Sodium Chloride Flush 0.9% 10 Ml Syringe IVP 10 ml PRN PRN Administration NEEDED PER PROVIDER ORDERS Tamsulosin HCl 0.4 mg 08/10/25 09:00 08/18/25 09:05 Tamsulosin 0.4 Mg Capsule PO 0.4 mg DAILY WEST Administration Thiamine HCl 100 mg 05/30/25 09:00 08/18/25 09:05 Thiamine 100 Mg Tablet PO 100 mg DAILY WEST Administration Zinc Oxide 113 gm 06/28/25 12:00 08/17/25 08:26 Cod Liver Oil/Zinc Oxide 113 Gm Tube TOP 1 applic PRN PRN Administration Skin Care Objective Vital Signs/Intake & Output Reviewed Vital Signs: Yes Vital Signs: Vital Signs x48h Temp Pulse Resp BP BP Pulse Ox 08/18/25 09:15 36.5 C 119 H 137/90 H 08/18/25 07:45 36.7 C 119 H 20 146/104 H 144/102 H 97 Intake & Output: Intake & Output 08/15/25 08/16/25 08/17/25 08/18/25 23:59 23:59 23:59 23:59 Intake Total 880 / 880 980 / 980 720 / 720 120 / 120 Balance 880 / 880 980 / 980 720 / 720 120 / 120 Weight (kg) 48 kg Objective General Appearance: positive No acute distress Eyes Bilateral: positive Normal inspection ENT: positive ENT inspection nml Neck: positive Nml inspection Respiratory: positive No respiratory distress Abdomen: positive No distention Skin: positive Color nml, No rash and Dry Extremities: positive Nml appearance and No pedal edema Neurologic/Psychiatric: positive Other (alert) Lab Results 08/17/25 13:26 08/17/25 13:26 Other Labs: Lab Results x24hrs 08/17/25 Range/Units 13:26 WBC 8.0 (4.8-10.8) x10^3/uL RBC 4.66 (4.20-5.40) 10^6/uL Hgb 15.3 (12.0-16.0) g/dL Hct 44.5 (37.0-47.0) % MCV 95.5 (81.0-99.0) fL MCH 32.8 H (27.0-31.0) pg MCHC 34.4 (32.0-36.0) g/dL RDW 12.2 (12.0-15.0) % Plt Count 406 (130-450) 10^3/uL MPV 9.8 (7.9-10.8) fL Neut # (Auto) 5.1 (1.5-6.6) 10^3/uL Lymph # (Auto) 1.5 (1.5-3.5) 10^3/uL [place] # (Auto) 1.1 H (0.0-1.0) 10^3/uL Eos # (Auto) 0.3 (0.0-0.7) 10^3/uL Baso # (Auto) 0.0 (0.0-0.1) 10^3/uL Absolute Nucleated RBC 0.00 x10^3/uL Nucleated RBC % 0.0 /100WBC Sodium 140 (135-145) mmol/L Potassium 3.7 (3.5-4.5) mmol/L Chloride 102 (101-111) mmol/L Carbon Dioxide 30 (21-32) mmol/L Anion Gap 8.0 (6-13) BUN 22 H (6-20) mg/dL Creatinine 0.6 (0.6-1.3) mg/dL Estimated GFR (MDRD) 102 (>89) Glucose 143 H (74-104) mg/dL Calcium 9.9 (8.5-10.3) mg/dL Magnesium 2.1 (1.7-2.3) mg/dL Sepsis Event Note (H) Evaluation Current Stage of Sepsis: Ruled out Assessment/Plan Problem List (1) Abnormal vital signs: Impression: Heart rates been elevated over the past day, now with tachypnea. Ordered CBC, BMP, EKG. Recent UA with no UTI. 08/18: Workup unremarkable including CBC and BMP. EKG showing sinus tachycardia. I have ordered 2 L LR bolus and encouraged nursing to promote oral intake (2) Polysubstance abuse: Impression: She has been in the hospital since 05/13/2025 UDS on presentation was positive for opiates, amphetamine, methamphetamine, cocaine She is out of the window for any acute withdrawal. She has not had any acute changes in her mental status for at least a week. 06/13: She is having some overall tenseness and hyperactivity, likely a psychomotor side effect of her polysubstance abuse. I am starting Suboxone 8-2 mg SL daily and will monitor for effect versus toxicity 05/20 7: She did not tolerate her dose of Suboxone very well. She was very lethargic through most of yesterday afternoon and is still only responding to pain. Last night I gave her a dose of Narcan with minimal effect. I gave her a liter of IV fluids and sent her for CT head out of an abundance of caution which showed no acute changes. I have discontinued her Suboxone, and I am keeping her on continuous pulse ox to watch for respiratory depression. I have Narcan ordered as needed. Chest x-ray was performed as she had some desaturation requiring 2 L O2. This showed no acute findings. 06/15: Her mentation is much improved today as the Suboxone is washing out of her system. As we do not stock smaller doses of Suboxone, we will likely not pursue this any further. She is back to her mentation as of a few days ago. Remains medically clear. Today is nonbillable rounding 06/16: No change in condition, no change in plan. (3) Altered mental status: Impression: Altered mentation likely secondary to polysubstance abuse UDS on presentation positive for opiates, amphetamine, methamphetamine, cocaine Patient was held in observation, and repeat CT and MRI were performed. MRI shows diffuse white matter hyperintense signal which may represent edema. Not the typical presentation of press Her altered mentation is not affected by her blood pressure, meaning it is not improved whenever her blood pressure is within normal limits Case discussed with neurology on 05/26, who recommended LP, but stated that this is likely sequela of hypoxic event from drug use. thiamine 500 mg IM 3 times daily started on 05 26,for 3 days, now on po thiamine daily 06/06 Daughter Ina made contact with RN. I also spoke with her, at this point, her mother's condition is sub acute. No need for interventions. 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 She is willing to assist with this, but neither she, nor her mother have a safe place to live. Qualifiers: Altered mental status type: stupor Qualified Code(s): R40.1 - Stupor (4) Pubic bone fracture: Impression: X-ray hip on 05/25 shows moderately displaced right inferior pubic ramus fracture with extension in the medial acetabular column and suspicion for extension to the pelvic ring. Case was discussed with on-call orthopedist, who reports this is nonoperative. She is full weightbearing as tolerated and will need a walker at discharge. If her mentation improves, we will order PT jesús, currently not able to particpate with PT. She has been seen 1x for PT, no rehab potentential. She is getting to the chair daily with staff assistance (5) Malnutrition: Impression: Severe protein calorie malnutrition given obvious muscle wasting, loss of subcutaneous fat, bedridden. She is eating 100% of meals, with occasional exception. BMI increased from 14.9 to 15.7 to 16.2 to 16.5, This is an improvement. This patient's diagnosis and treatment plan was discussed this AM with attending physician as a part of multi disciplinary rounding meeting. Qualifiers: Malnutrition type: unspecified type Qualified Code(s): E46 - Unspecified protein-calorie malnutrition
[2025-08-18] MEDS: LACTATED RINGERS 1,000 ML IV ONE ×2 (11:40→12:48)
--- NOTE | 2025-08-19 19:05 | PROVIDER PROGRESS NOTE ---
Subjective Prog Note Date Prog Note Date: 08/19/25 Subjective Subjective: she is lying in bed, comfortable. drinks water when I offer it to her. Current Medications Current Medications Current Medications: Current Medications Generic Name Dose Route Start Last Admin Trade Name Falguni PRN Reason Stop Dose Admin Acetaminophen 650 mg 05/21/25 14:24 08/19/25 08:50 Acetaminophen 325 Mg Tablet PO 650 mg Q4HR PRN Administration Pain 1 to 4, or Fever Apixaban 2.5 mg 05/29/25 21:00 08/19/25 08:50 Apixaban 2.5 Mg Tablet PO 2.5 mg BID WEST Administration Calcium Carbonate/Glycine 500 mg 06/04/25 09:00 08/19/25 08:50 Calcium Carbonate Chew 500 Mg Tablet PO 500 mg DAILY WEST Administration Cetirizine HCl 10 mg 07/06/25 11:37 08/17/25 08:26 Cetirizine 10 Mg Tablet PO 10 mg DAILY PRN Administration Allergy Symptoms Cholecalciferol 25 mcg 06/04/25 09:00 08/19/25 08:50 Cholecalciferol 25 Mcg Tablet PO 25 mcg DAILY WEST Administration Cyclobenzaprine HCl 10 mg 06/18/25 13:19 08/16/25 17:06 Cyclobenzaprine 10 Mg Tablet PO 10 mg TID PRN Administration Spasms Docusate Sodium 250 - 500 mg 07/02/25 10:35 Docusate Sodium 250 Mg Capsule PO DAILY PRN Constipation Polyethylene Glycol 17 gm 07/02/25 10:34 08/06/25 09:06 Polyethylene Glycol 3350 17 Gm Packet PO 17 gm DAILY PRN Administration Constipation Multivit/Folic Acid/Iron 1 tab 05/25/25 08:00 08/19/25 08:50 Vitamin Tablet PO 1 tab DAILYWM WEST Administration Sodium Chloride 10 ml 05/21/25 14:24 06/18/25 00:14 Sodium Chloride Flush 0.9% 10 Ml Syringe IVP 10 ml PRN PRN Administration NEEDED PER PROVIDER ORDERS Tamsulosin HCl 0.4 mg 08/10/25 09:00 08/19/25 08:50 Tamsulosin 0.4 Mg Capsule PO 0.4 mg DAILY WEST Administration Thiamine HCl 100 mg 05/30/25 09:00 08/19/25 08:50 Thiamine 100 Mg Tablet PO 100 mg DAILY WEST Administration Zinc Oxide 113 gm 06/28/25 12:00 08/17/25 08:26 Cod Liver Oil/Zinc Oxide 113 Gm Tube TOP 1 applic PRN PRN Administration Skin Care Objective Vital Signs/Intake & Output Reviewed Vital Signs: Yes Vital Signs: Vital Signs x48h Temp Pulse Resp BP Pulse Ox 08/19/25 15:45 36.6 C 119 H 24 177/98 H 96 Intake & Output: Intake & Output 08/16/25 08/17/25 08/18/25 08/19/25 23:59 23:59 23:59 23:59 Intake Total 980 / 980 720 / 720 3080 / 3080 720 / 720 Balance 980 / 980 720 / 720 3080 / 3080 720 / 720 Objective General Appearance: positive No acute distress Eyes Bilateral: positive Normal inspection ENT: positive ENT inspection nml Neck: positive Nml inspection Respiratory: positive No respiratory distress Cardiovascular: positive Regular rate & rhythm Abdomen: positive No distention Skin: positive Color nml, No rash, Dry and Other (hypertrophic overgrown toenails) Extremities: positive Nml appearance and No pedal edema Neurologic/Psychiatric: positive Other (alert, smiles and laughs) Lab Results 08/17/25 13:26 08/17/25 13:26 Other Labs: Lab Results x24hrs 08/17/25 Range/Units 13:26 WBC 8.0 (4.8-10.8) x10^3/uL RBC 4.66 (4.20-5.40) 10^6/uL Hgb 15.3 (12.0-16.0) g/dL Hct 44.5 (37.0-47.0) % MCV 95.5 (81.0-99.0) fL MCH 32.8 H (27.0-31.0) pg MCHC 34.4 (32.0-36.0) g/dL RDW 12.2 (12.0-15.0) % Plt Count 406 (130-450) 10^3/uL MPV 9.8 (7.9-10.8) fL Neut # (Auto) 5.1 (1.5-6.6) 10^3/uL Lymph # (Auto) 1.5 (1.5-3.5) 10^3/uL [place] # (Auto) 1.1 H (0.0-1.0) 10^3/uL Eos # (Auto) 0.3 (0.0-0.7) 10^3/uL Baso # (Auto) 0.0 (0.0-0.1) 10^3/uL Absolute Nucleated RBC 0.00 x10^3/uL Nucleated RBC % 0.0 /100WBC Sodium 140 (135-145) mmol/L Potassium 3.7 (3.5-4.5) mmol/L Chloride 102 (101-111) mmol/L Carbon Dioxide 30 (21-32) mmol/L Anion Gap 8.0 (6-13) BUN 22 H (6-20) mg/dL Creatinine 0.6 (0.6-1.3) mg/dL Estimated GFR (MDRD) 102 (>89) Glucose 143 H (74-104) mg/dL Calcium 9.9 (8.5-10.3) mg/dL Magnesium 2.1 (1.7-2.3) mg/dL Sepsis Event Note (H) Evaluation Current Stage of Sepsis: Ruled out Assessment/Plan Problem List (1) Abnormal vital signs: Impression: Heart rates been elevated over the past day, now with tachypnea. Ordered CBC, BMP, EKG. Recent UA with no UTI. 08/18: Workup unremarkable including CBC and BMP. EKG showing sinus tachycardia. I have ordered 2 L LR bolus and encouraged nursing to promote oral intake 08/19: oral intake encouraged. I am going to treat her heart rate and blood pressure with a beta juan antonio, started propranolol 10mg TID this PM, will monitor. Her affect is calm and satisfied, she is not showing outward signs of anxiety. (2) Polysubstance abuse: Impression: She has been in the hospital since 05/13/2025 UDS on presentation was positive for opiates, amphetamine, methamphetamine, cocaine She is out of the window for any acute withdrawal. She has not had any acute changes in her mental status for at least a week. 06/13: She is having some overall tenseness and hyperactivity, likely a psychomotor side effect of her polysubstance abuse. I am starting Suboxone 8-2 mg SL daily and will monitor for effect versus toxicity 05/20 7: She did not tolerate her dose of Suboxone very well. She was very lethargic through most of yesterday afternoon and is still only responding to pain. Last night I gave her a dose of Narcan with minimal effect. I gave her a liter of IV fluids and sent her for CT head out of an abundance of caution which showed no acute changes. I have discontinued her Suboxone, and I am keeping her on continuous pulse ox to watch for respiratory depression. I have Narcan ordered as needed. Chest x-ray was performed as she had some desaturation requiring 2 L O2. This showed no acute findings. 06/15: Her mentation is much improved today as the Suboxone is washing out of her system. As we do not stock smaller doses of Suboxone, we will likely not pursue this any further. She is back to her mentation as of a few days ago. Remains medically clear. Today is nonbillable rounding 06/16: No change in condition, no change in plan. (3) Altered mental status: Impression: Altered mentation likely secondary to polysubstance abuse UDS on presentation positive for opiates, amphetamine, methamphetamine, cocaine Patient was held in observation, and repeat CT and MRI were performed. MRI shows diffuse white matter hyperintense signal which may represent edema. Not the typical presentation of press Her altered mentation is not affected by her blood pressure, meaning it is not improved whenever her blood pressure is within normal limits Case discussed with neurology on 05/26, who recommended LP, but stated that this is likely sequela of hypoxic event from drug use. thiamine 500 mg IM 3 times daily started on 05 26,for 3 days, now on po thiamine daily 06/06 Daughter Ina made contact with RN. I also spoke with her, at this point, her mother's condition is sub acute. No need for interventions. Ina is aware her mother needs intermediate care. She is willing to assist with this, but neither she, nor her mother have a safe place to live. Qualifiers: Altered mental status type: stupor Qualified Code(s): R40.1 - Stupor (4) Pubic bone fracture: Impression: X-ray hip on 05/25 shows moderately displaced right inferior pubic ramus fracture with extension in the medial acetabular column and suspicion for extension to the pelvic ring. Case was discussed with on-call orthopedist, who reports this is nonoperative. She is full weightbearing as tolerated and will need a walker at discharge. If her mentation improves, we will order PT eval, currently not able to particpate with PT. She has been seen 1x for PT, no rehab potentential. She is getting to the chair daily with staff assistance (5) Malnutrition: Impression: Severe protein calorie malnutrition given obvious muscle wasting, loss of subcutaneous fat, bedridden. She is eating 100% of meals, with occasional exception. BMI increased from 14.9 to 15.7 to 16.2 to 16.5, This is an improvement. This patient's diagnosis and treatment plan was discussed this AM with attending physician as a part of multi disciplinary rounding meeting. Qualifiers: Malnutrition type: unspecified type Qualified Code(s): E46 - Unspecified protein-calorie malnutrition
[2025-08-19] MEDS: PROPRANOLOL 10 MG TABLET PO SCH (21:34)
--- NOTE | 2025-08-20 18:15 | PROVIDER PROGRESS NOTE ---
Subjective Prog Note Date Prog Note Date: 08/20/25 Subjective Subjective: She is sitting up in bed, and laughs at me when I offer her water or juice. She chooses juice and drinks well. Current Medications Current Medications Current Medications: Current Medications Generic Name Dose Route Start Last Admin Trade Name Falguni PRN Reason Stop Dose Admin Acetaminophen 650 mg 05/21/25 14:24 08/20/25 06:14 Acetaminophen 325 Mg Tablet PO 650 mg Q4HR PRN Administration Pain 1 to 4, or Fever Apixaban 2.5 mg 05/29/25 21:00 08/20/25 08:49 Apixaban 2.5 Mg Tablet PO 2.5 mg BID WEST Administration Calcium Carbonate/Glycine 500 mg 06/04/25 09:00 08/20/25 08:49 Calcium Carbonate Chew 500 Mg Tablet PO 500 mg DAILY WEST Administration Cetirizine HCl 10 mg 07/06/25 11:37 08/17/25 08:26 Cetirizine 10 Mg Tablet PO 10 mg DAILY PRN Administration Allergy Symptoms Cholecalciferol 25 mcg 06/04/25 09:00 08/20/25 08:49 Cholecalciferol 25 Mcg Tablet PO 25 mcg DAILY WEST Administration Cyclobenzaprine HCl 10 mg 06/18/25 13:19 08/20/25 06:15 Cyclobenzaprine 10 Mg Tablet PO 10 mg TID PRN Administration Spasms Docusate Sodium 250 - 500 mg 07/02/25 10:35 Docusate Sodium 250 Mg Capsule PO DAILY PRN Constipation Polyethylene Glycol 17 gm 07/02/25 10:34 08/20/25 08:49 Polyethylene Glycol 3350 17 Gm Packet PO 17 gm DAILY PRN Administration Constipation Multivit/Folic Acid/Iron 1 tab 05/25/25 08:00 08/20/25 08:49 Vitamin Tablet PO 1 tab DAILYWM WEST Administration Propranolol HCl 10 mg 08/19/25 22:00 08/20/25 14:20 Propranolol 10 Mg Tablet PO 10 mg TID WEST Administration Tamsulosin HCl 0.4 mg 08/10/25 09:00 08/20/25 08:49 Tamsulosin 0.4 Mg Capsule PO 0.4 mg DAILY WEST Administration Thiamine HCl 100 mg 05/30/25 09:00 08/20/25 08:49 Thiamine 100 Mg Tablet PO 100 mg DAILY WEST Administration Zinc Oxide 113 gm 06/28/25 12:00 08/20/25 06:15 Cod Liver Oil/Zinc Oxide 113 Gm Tube TOP 1 applic PRN PRN Administration Skin Care Objective Vital Signs/Intake & Output Reviewed Vital Signs: Yes Vital Signs: Vital Signs x48h Temp Pulse Resp BP Pulse Ox 08/20/25 14:20 36.5 C 124 H 16 127/84 98 Intake & Output: Intake & Output 08/17/25 08/18/25 08/19/25 08/20/25 23:59 23:59 23:59 23:59 Intake Total 720 / 720 3080 / 3080 960 / 960 480 / 480 Balance 720 / 720 3080 / 3080 960 / 960 480 / 480 Objective General Appearance: positive No acute distress Eyes Bilateral: positive Normal inspection ENT: positive ENT inspection nml Neck: positive Nml inspection Respiratory: positive No respiratory distress Cardiovascular: positive Regular rate & rhythm Abdomen: positive No distention Skin: positive Color nml, No rash, Dry and Other (hypertrophic overgrown toenails) Extremities: positive Nml appearance and No pedal edema Neurologic/Psychiatric: positive Other (alert, smiles and laughs) Lab Results 08/17/25 13:26 08/17/25 13:26 Other Labs: Lab Results x24hrs 08/17/25 Range/Units 13:26 WBC 8.0 (4.8-10.8) x10^3/uL RBC 4.66 (4.20-5.40) 10^6/uL Hgb 15.3 (12.0-16.0) g/dL Hct 44.5 (37.0-47.0) % MCV 95.5 (81.0-99.0) fL MCH 32.8 H (27.0-31.0) pg MCHC 34.4 (32.0-36.0) g/dL RDW 12.2 (12.0-15.0) % Plt Count 406 (130-450) 10^3/uL MPV 9.8 (7.9-10.8) fL Neut # (Auto) 5.1 (1.5-6.6) 10^3/uL Lymph # (Auto) 1.5 (1.5-3.5) 10^3/uL [place] # (Auto) 1.1 H (0.0-1.0) 10^3/uL Eos # (Auto) 0.3 (0.0-0.7) 10^3/uL Baso # (Auto) 0.0 (0.0-0.1) 10^3/uL Absolute Nucleated RBC 0.00 x10^3/uL Nucleated RBC % 0.0 /100WBC Sodium 140 (135-145) mmol/L Potassium 3.7 (3.5-4.5) mmol/L Chloride 102 (101-111) mmol/L Carbon Dioxide 30 (21-32) mmol/L Anion Gap 8.0 (6-13) BUN 22 H (6-20) mg/dL Creatinine 0.6 (0.6-1.3) mg/dL Estimated GFR (MDRD) 102 (>89) Glucose 143 H (74-104) mg/dL Calcium 9.9 (8.5-10.3) mg/dL Magnesium 2.1 (1.7-2.3) mg/dL Sepsis Event Note (H) Evaluation Current Stage of Sepsis: Ruled out Assessment/Plan Problem List (1) Abnormal vital signs: Impression: Heart rates been elevated over the past day, now with tachypnea. Ordered CBC, BMP, EKG. Recent UA with no UTI. 08/18: Workup unremarkable including CBC and BMP. EKG showing sinus tachycardia. I have ordered 2 L LR bolus and encouraged nursing to promote oral intake 08/19: oral intake encouraged. I am going to treat her heart rate and blood pressure with a beta juan antonio, started propranolol 10mg TID this PM, will monitor. Her affect is calm and satisfied, she is not showing outward signs of anxiety. 08/20: Vital signs seems slightly improved. Although, I do not see a gross change in them. Still tachycardic, but blood pressure slightly improved. (2) Polysubstance abuse: Impression: She has been in the hospital since 05/13/2025 UDS on presentation was positive for opiates, amphetamine, methamphetamine, cocaine She is out of the window for any acute withdrawal. She has not had any acute changes in her mental status for at least a week. 06/13: She is having some overall tenseness and hyperactivity, likely a psychomotor side effect of her polysubstance abuse. I am starting Suboxone 8-2 mg SL daily and will monitor for effect versus toxicity 05/20: She did not tolerate her dose of Suboxone very well. She was very lethargic through most of yesterday afternoon and is still only responding to pain. Last night I gave her a dose of Narcan with minimal effect. I gave her a liter of IV fluids and sent her for CT head out of an abundance of caution which showed no acute changes. I have discontinued her Suboxone, and I am keeping her on continuous pulse ox to watch for respiratory depression. I have Narcan ordered as needed. Chest x-ray was performed as she had some desaturation requiring 2 L O2. This showed no acute findings. 06/15: Her mentation is much improved today as the Suboxone is washing out of her system. As we do not stock smaller doses of Suboxone, we will likely not pursue this any further. She is back to her mentation as of a few days ago. Remains medically clear. Today is nonbillable rounding 06/16: No change in condition, no change in plan. (3) Altered mental status: Impression: Altered mentation likely secondary to polysubstance abuse UDS on presentation positive for opiates, amphetamine, methamphetamine, cocaine Patient was held in observation, and repeat CT and MRI were performed. MRI shows diffuse white matter hyperintense signal which may represent edema. Not the typical presentation of press Her altered mentation is not affected by her blood pressure, meaning it is not improved whenever her blood pressure is within normal limits Case discussed with neurology on 05/26, who recommended LP, but stated that this is likely sequela of hypoxic event from drug use. thiamine 500 mg IM 3 times daily started on 05 26,for 3 days, now on po thiamine daily 06/06 Daughter Ina made contact with RN. I also spoke with her, at this point, her mother's condition is sub acute. No need for interventions. 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 She is willing to assist with this, but neither she, nor her mother have a safe place to live. Qualifiers: Altered mental status type: stupor Qualified Code(s): R40.1 - Stupor (4) Pubic bone fracture: Impression: X-ray hip on 05/25 shows moderately displaced right inferior pubic ramus fracture with extension in the medial acetabular column and suspicion for extension to the pelvic ring. Case was discussed with on-call orthopedist, who reports this is nonoperative. She is full weightbearing as tolerated and will need a walker at discharge. If her mentation improves, we will order PT jesús, currently not able to particpate with PT. She has been seen 1x for PT, no rehab potentential. She is getting to the chair daily with staff assistance (5) Malnutrition: Impression: Severe protein calorie malnutrition given obvious muscle wasting, loss of subcutaneous fat, bedridden. She is eating 100% of meals, with occasional exception. BMI increased from 14.9 to 15.7 to 16.2 to 16.5, This is an improvement. This patient's diagnosis and treatment plan was discussed this AM with attending physician as a part of multi disciplinary rounding meeting. non billable rounding Qualifiers: Malnutrition type: unspecified type Qualified Code(s): E46 - Unspecified protein-calorie malnutrition
--- NOTE | 2025-08-21 16:03 | PROVIDER PROGRESS NOTE ---
Subjective Prog Note Date Prog Note Date: 08/21/25 Subjective Subjective: She does not want to wear her gown today, wants to be naked from the waist up. She appears comfortable now that she does not have her top on. She has a soft stuffed animal, and when I ask her if it feels nice, she says "yes". Current Medications Current Medications Current Medications: Current Medications Generic Name Dose Route Start Last Admin Trade Name Freq PRN Reason Stop Dose Admin Acetaminophen 650 mg 05/21/25 14:24 08/21/25 08:06 Acetaminophen 325 Mg Tablet PO 650 mg Q4HR PRN Administration Pain 1 to 4, or Fever Apixaban 2.5 mg 05/29/25 21:00 08/21/25 08:06 Apixaban 2.5 Mg Tablet PO 2.5 mg BID WEST Administration Calcium Carbonate/Glycine 500 mg 06/04/25 09:00 08/21/25 08:05 Calcium Carbonate Chew 500 Mg Tablet PO 500 mg DAILY WEST Administration Cetirizine HCl 10 mg 07/06/25 11:37 08/17/25 08:26 Cetirizine 10 Mg Tablet PO 10 mg DAILY PRN Administration Allergy Symptoms Cholecalciferol 25 mcg 06/04/25 09:00 08/21/25 08:05 Cholecalciferol 25 Mcg Tablet PO 25 mcg DAILY WEST Administration Cyclobenzaprine HCl 10 mg 06/18/25 13:19 08/21/25 08:05 Cyclobenzaprine 10 Mg Tablet PO 10 mg TID PRN Administration Spasms Docusate Sodium 250 - 500 mg 07/02/25 10:35 Docusate Sodium 250 Mg Capsule PO DAILY PRN Constipation Polyethylene Glycol 17 gm 07/02/25 10:34 08/20/25 08:49 Polyethylene Glycol 3350 17 Gm Packet PO 17 gm DAILY PRN Administration Constipation Multivit/Folic Acid/Iron 1 tab 05/25/25 08:00 08/21/25 08:06 Vitamin Tablet PO 1 tab DAILYWM WEST Administration Propranolol HCl 10 mg 08/19/25 22:00 08/21/25 14:19 Propranolol 10 Mg Tablet PO Not Given TID WEST Tamsulosin HCl 0.4 mg 08/10/25 09:00 08/21/25 08:05 Tamsulosin 0.4 Mg Capsule PO 0.4 mg DAILY WEST Administration Thiamine HCl 100 mg 05/30/25 09:00 08/21/25 08:05 Thiamine 100 Mg Tablet PO 100 mg DAILY WEST Administration Zinc Oxide 113 gm 06/28/25 12:00 08/21/25 08:06 Cod Liver Oil/Zinc Oxide 113 Gm Tube TOP 1 applic PRN PRN Administration Skin Care Objective Vital Signs/Intake & Output Reviewed Vital Signs: Yes Vital Signs: Vital Signs x48h Temp Pulse Pulse Resp BP BP Pulse Ox 08/21/25 14:19 36.5 C 78 16 107/77 96 08/21/25 09:34 36.5 C 105 H 18 118/97 H 95 Intake & Output: Intake & Output 08/18/25 08/19/25 08/20/25 08/21/25 23:59 23:59 23:59 23:59 Intake Total 3080 / 3080 960 / 960 920 / 920 920 / 920 Balance 3080 / 3080 960 / 960 920 / 920 920 / 920 Objective General Appearance: positive No acute distress Eyes Bilateral: positive Normal inspection ENT: positive ENT inspection nml Neck: positive Nml inspection Respiratory: positive No respiratory distress Cardiovascular: positive Regular rate & rhythm Abdomen: positive No distention Skin: positive Color nml, No rash, Dry and Other (hypertrophic overgrown toenails) Extremities: positive Nml appearance and No pedal edema Neurologic/Psychiatric: positive Other (alert, smiles and laughs) Lab Results 08/17/25 13:26 08/17/25 13:26 Other Labs: Lab Results x24hrs 08/17/25 Range/Units 13:26 WBC 8.0 (4.8-10.8) x10^3/uL RBC 4.66 (4.20-5.40) 10^6/uL Hgb 15.3 (12.0-16.0) g/dL Hct 44.5 (37.0-47.0) % MCV 95.5 (81.0-99.0) fL MCH 32.8 H (27.0-31.0) pg MCHC 34.4 (32.0-36.0) g/dL RDW 12.2 (12.0-15.0) % Plt Count 406 (130-450) 10^3/uL MPV 9.8 (7.9-10.8) fL Neut # (Auto) 5.1 (1.5-6.6) 10^3/uL Lymph # (Auto) 1.5 (1.5-3.5) 10^3/uL [place] # (Auto) 1.1 H (0.0-1.0) 10^3/uL Eos # (Auto) 0.3 (0.0-0.7) 10^3/uL Baso # (Auto) 0.0 (0.0-0.1) 10^3/uL Absolute Nucleated RBC 0.00 x10^3/uL Nucleated RBC % 0.0 /100WBC Sodium 140 (135-145) mmol/L Potassium 3.7 (3.5-4.5) mmol/L Chloride 102 (101-111) mmol/L Carbon Dioxide 30 (21-32) mmol/L Anion Gap 8.0 (6-13) BUN 22 H (6-20) mg/dL Creatinine 0.6 (0.6-1.3) mg/dL Estimated GFR (MDRD) 102 (>89) Glucose 143 H (74-104) mg/dL Calcium 9.9 (8.5-10.3) mg/dL Magnesium 2.1 (1.7-2.3) mg/dL Sepsis Event Note (H) Evaluation Current Stage of Sepsis: Ruled out Assessment/Plan Problem List (1) Abnormal vital signs: Impression: 08/18: Workup unremarkable including CBC and BMP. EKG showing sinus tachycardia. I have ordered 2 L LR bolus and encouraged nursing to promote oral intake 08/19: oral intake encouraged. I am going to treat her heart rate and blood pressure with a beta juan antonio, started propranolol 10mg TID this PM, will monitor. Her affect is calm and satisfied, she is not showing outward signs of anxiety. 08/20: Vital signs seems slightly improved. Although, I do not see a gross change in them. Still tachycardic, but blood pressure slightly improved. 08/21: more improvement in VS to the point that her mid day dose of propranolol was held. Selected Entries 08/06/25 09:00 08/21/25 03:43 08/21/25 09:34 Pulse Rate [Brachial] 109 H 105 H Pulse Rate [Radial] 96 Blood Pressure [Left Brachial artery] Blood Pressure [Right Brachial artery] 118/97 H 08/21/25 14:19 Pulse Rate [Brachial] Pulse Rate [Radial] 78 Blood Pressure [Left Brachial artery] 107/77 Blood Pressure [Right Brachial artery] (2) Polysubstance abuse: Impression: She has been in the hospital since 05/13/2025 UDS on presentation was positive for opiates, amphetamine, methamphetamine, cocaine She is out of the window for any acute withdrawal. She has not had any acute changes in her mental status for at least a week. 06/13: She is having some overall tenseness and hyperactivity, likely a psychomotor side effect of her polysubstance abuse. I am starting Suboxone 8-2 mg SL daily and will monitor for effect versus toxicity 05/20 7: She did not tolerate her dose of Suboxone very well. She was very lethargic through most of yesterday afternoon and is still only responding to pain. Last night I gave her a dose of Narcan with minimal effect. I gave her a liter of IV fluids and sent her for CT head out of an abundance of caution which showed no acute changes. I have discontinued her Suboxone, and I am keeping her on continuous pulse ox to watch for respiratory depression. I have Narcan ordered as needed. Chest x-ray was performed as she had some desaturation requiring 2 L O2. This showed no acute findings. 06/15: Her mentation is much improved today as the Suboxone is washing out of her system. As we do not stock smaller doses of Suboxone, we will likely not pursue this any further. She is back to her mentation as of a few days ago. Remains medically clear. Today is nonbillable rounding 06/16: No change in condition, no change in plan. (3) Altered mental status: Impression: Altered mentation likely secondary to polysubstance abuse UDS on presentation positive for opiates, amphetamine, methamphetamine, cocaine Patient was held in observation, and repeat CT and MRI were performed. MRI shows diffuse white matter hyperintense signal which may represent edema. Not the typical presentation of press Her altered mentation is not affected by her blood pressure, meaning it is not improved whenever her blood pressure is within normal limits Case discussed with neurology on 05/26, who recommended LP, but stated that this is likely sequela of hypoxic event from drug use. thiamine 500 mg IM 3 times daily started on 05 26,for 3 days, now on po thiamine daily 06/06 Daughter Ina made contact with RN. I also spoke with her, at this point, her mother's condition is sub acute. No need for interventions. Ina is aware her mother needs jail care. She is willing to assist with this, but neither she, nor her mother have a safe place to live. Qualifiers: Altered mental status type: stupor Qualified Code(s): R40.1 - Stupor (4) Pubic bone fracture: Impression: X-ray hip on 05/25 shows moderately displaced right inferior pubic ramus fracture with extension in the medial acetabular column and suspicion for extension to the pelvic ring. Case was discussed with on-call orthopedist, who reports this is nonoperative. She is full weightbearing as tolerated and will need a walker at discharge. If her mentation improves, we will order PT eval, currently not able to particpate with PT. She has been seen 1x for PT, no rehab potentential. She is getting to the chair daily with staff assistance (5) Malnutrition: Impression: Severe protein calorie malnutrition given obvious muscle wasting, loss of subcutaneous fat, bedridden. She is eating 100% of meals, with occasional exception. BMI increased from 14.9 to 15.7 to 16.2 to 16.5, now 17.1 This is an improvement. This patient's diagnosis and treatment plan was discussed this AM with attending physician as a part of multi disciplinary rounding meeting. non billable rounding Qualifiers: Malnutrition type: unspecified type Qualified Code(s): E46 - Unspecified protein-calorie malnutrition
--- NOTE | 2025-08-22 12:04 | PROVIDER PROGRESS NOTE ---
Subjective Prog Note Date Prog Note Date: 08/22/25 Subjective Subjective: She has not wanted to wear a gown for the last day or so, but today, she is wearing a gown, listening to classic rock. Refuses water or juice. She says "bless you" to me when I sneeze. Current Medications Current Medications Current Medications: Current Medications Generic Name Dose Route Start Last Admin Trade Name Falguni PRN Reason Stop Dose Admin Acetaminophen 650 mg 05/21/25 14:24 08/22/25 08:05 Acetaminophen 325 Mg Tablet PO 650 mg Q4HR PRN Administration Pain 1 to 4, or Fever Apixaban 2.5 mg 05/29/25 21:00 08/22/25 08:06 Apixaban 2.5 Mg Tablet PO 2.5 mg BID WEST Administration Calcium Carbonate/Glycine 500 mg 06/04/25 09:00 08/22/25 08:05 Calcium Carbonate Chew 500 Mg Tablet PO 500 mg DAILY WEST Administration Cetirizine HCl 10 mg 07/06/25 11:37 08/17/25 08:26 Cetirizine 10 Mg Tablet PO 10 mg DAILY PRN Administration Allergy Symptoms Cholecalciferol 25 mcg 06/04/25 09:00 08/22/25 08:05 Cholecalciferol 25 Mcg Tablet PO 25 mcg DAILY WEST Administration Cyclobenzaprine HCl 10 mg 06/18/25 13:19 08/22/25 08:06 Cyclobenzaprine 10 Mg Tablet PO 10 mg TID PRN Administration Spasms Docusate Sodium 250 - 500 mg 07/02/25 10:35 Docusate Sodium 250 Mg Capsule PO DAILY PRN Constipation Polyethylene Glycol 17 gm 07/02/25 10:34 08/20/25 08:49 Polyethylene Glycol 3350 17 Gm Packet PO 17 gm DAILY PRN Administration Constipation Multivit/Folic Acid/Iron 1 tab 05/25/25 08:00 08/22/25 08:05 Vitamin Tablet PO 1 tab DAILYWM WEST Administration Propranolol HCl 10 mg 08/19/25 22:00 08/22/25 08:06 Propranolol 10 Mg Tablet PO 10 mg TID WEST Administration Tamsulosin HCl 0.4 mg 08/10/25 09:00 08/22/25 08:05 Tamsulosin 0.4 Mg Capsule PO 0.4 mg DAILY WEST Administration Thiamine HCl 100 mg 05/30/25 09:00 08/22/25 08:06 Thiamine 100 Mg Tablet PO 100 mg DAILY WEST Administration Zinc Oxide 113 gm 06/28/25 12:00 08/22/25 08:04 Cod Liver Oil/Zinc Oxide 113 Gm Tube TOP 1 applic PRN PRN Administration Skin Care Objective Vital Signs/Intake & Output Reviewed Vital Signs: Yes Vital Signs: Vital Signs x48h Temp Pulse Resp BP Pulse Ox 08/22/25 07:35 36.1 C L 104 H 24 112/79 95 Intake & Output: Intake & Output 08/19/25 08/20/25 08/21/25 08/22/25 23:59 23:59 23:59 23:59 Intake Total 960 / 960 920 / 920 1160 / 1160 Balance 960 / 960 920 / 920 1160 / 1160 Objective General Appearance: positive No acute distress Eyes Bilateral: positive Normal inspection ENT: positive ENT inspection nml Neck: positive Nml inspection Respiratory: positive No respiratory distress Cardiovascular: positive Regular rate & rhythm Abdomen: positive No distention Skin: positive Color nml, No rash, Dry and Other (hypertrophic overgrown toenails) Extremities: positive Nml appearance and No pedal edema Neurologic/Psychiatric: positive Other (alert, smiles and laughs) Lab Results 08/17/25 13:26 08/17/25 13:26 Other Labs: Lab Results x24hrs 08/17/25 Range/Units 13:26 WBC 8.0 (4.8-10.8) x10^3/uL RBC 4.66 (4.20-5.40) 10^6/uL Hgb 15.3 (12.0-16.0) g/dL Hct 44.5 (37.0-47.0) % MCV 95.5 (81.0-99.0) fL MCH 32.8 H (27.0-31.0) pg MCHC 34.4 (32.0-36.0) g/dL RDW 12.2 (12.0-15.0) % Plt Count 406 (130-450) 10^3/uL MPV 9.8 (7.9-10.8) fL Neut # (Auto) 5.1 (1.5-6.6) 10^3/uL Lymph # (Auto) 1.5 (1.5-3.5) 10^3/uL [place] # (Auto) 1.1 H (0.0-1.0) 10^3/uL Eos # (Auto) 0.3 (0.0-0.7) 10^3/uL Baso # (Auto) 0.0 (0.0-0.1) 10^3/uL Absolute Nucleated RBC 0.00 x10^3/uL Nucleated RBC % 0.0 /100WBC Sodium 140 (135-145) mmol/L Potassium 3.7 (3.5-4.5) mmol/L Chloride 102 (101-111) mmol/L Carbon Dioxide 30 (21-32) mmol/L Anion Gap 8.0 (6-13) BUN 22 H (6-20) mg/dL Creatinine 0.6 (0.6-1.3) mg/dL Estimated GFR (MDRD) 102 (>89) Glucose 143 H (74-104) mg/dL Calcium 9.9 (8.5-10.3) mg/dL Magnesium 2.1 (1.7-2.3) mg/dL Sepsis Event Note (H) Evaluation Current Stage of Sepsis: Ruled out Assessment/Plan Problem List (1) Abnormal vital signs: Impression: 08/18: Workup unremarkable including CBC and BMP. EKG showing sinus tachycardia. I have ordered 2 L LR bolus and encouraged nursing to promote oral intake 08/19: oral intake encouraged. I am going to treat her heart rate and blood pressure with a beta juan antonio, started propranolol 10mg TID this PM, will monitor. Her affect is calm and satisfied, she is not showing outward signs of anxiety. 08/20: Vital signs seems slightly improved. Although, I do not see a gross change in them. Still tachycardic, but blood pressure slightly improved. 08/21: more improvement in VS to the point that her mid day dose of propranolol was held. Selected Entries 08/06/25 09:00 08/21/25 03:43 08/21/25 09:34 Pulse Rate [Brachial] 109 H 105 H Pulse Rate [Radial] 96 Blood Pressure [Left Brachial artery] Blood Pressure [Right Brachial artery] 118/97 H 08/21/25 14:19 Pulse Rate [Brachial] Pulse Rate [Radial] 78 Blood Pressure [Left Brachial artery] 107/77 Blood Pressure [Right Brachial artery] 08/22: I think that propranolol is helping this patient. Selected Entries 08/21/25 14:19 08/21/25 21:00 08/22/25 07:35 Pulse Rate [Brachial] 98 104 H Pulse Rate [Radial] 78 Blood Pressure [Left Brachial artery] 107/77 Blood Pressure [Right Brachial artery] 139/96 H 112/79 (2) Polysubstance abuse: Impression: She has been in the hospital since 05/13/2025 UDS on presentation was positive for opiates, amphetamine, methamphetamine, cocaine She is out of the window for any acute withdrawal. She has not had any acute changes in her mental status for at least a week. 06/13: She is having some overall tenseness and hyperactivity, likely a psychomotor side effect of her polysubstance abuse. I am starting Suboxone 8-2 mg SL daily and will monitor for effect versus toxicity 05/20: She did not tolerate her dose of Suboxone very well. She was very lethargic through most of yesterday afternoon and is still only responding to pain. Last night I gave her a dose of Narcan with minimal effect. I gave her a liter of IV fluids and sent her for CT head out of an abundance of caution which showed no acute changes. I have discontinued her Suboxone, and I am keeping her on continuous pulse ox to watch for respiratory depression. I have Narcan ordered as needed. Chest x-ray was performed as she had some desaturation requiring 2 L O2. This showed no acute findings. 06/15: Her mentation is much improved today as the Suboxone is washing out of her system. As we do not stock smaller doses of Suboxone, we will likely not pursue this any further. She is back to her mentation as of a few days ago. Remains medically clear. Today is nonbillable rounding 06/16: No change in condition, no change in plan. (3) Altered mental status: Impression: Altered mentation likely secondary to polysubstance abuse UDS on presentation positive for opiates, amphetamine, methamphetamine, cocaine Patient was held in observation, and repeat CT and MRI were performed. MRI shows diffuse white matter hyperintense signal which may represent edema. Not the typical presentation of press Her altered mentation is not affected by her blood pressure, meaning it is not improved whenever her blood pressure is within normal limits Case discussed with neurology on 05/26, who recommended LP, but stated that this is likely sequela of hypoxic event from drug use. thiamine 500 mg IM 3 times daily started on 05 26,for 3 days, now on po thiamine daily 06/06 Daughter Ina made contact with RN. I also spoke with her, at this point, her mother's condition is sub acute. No need for interventions. Ina is aware her mother needs long term care social worker care. She is willing to assist with this, but neither she, nor her mother have a safe place to live. Qualifiers: Altered mental status type: stupor Qualified Code(s): R40.1 - Stupor (4) Pubic bone fracture: Impression: X-ray hip on 05/25 shows moderately displaced right inferior pubic ramus fracture with extension in the medial acetabular column and suspicion for extension to the pelvic ring. Case was discussed with on-call orthopedist, who reports this is nonoperative. She is full weightbearing as tolerated and will need a walker at discharge. If her mentation improves, we will order PT jesús, currently not able to particpate with PT. She has been seen 1x for PT, no rehab potentential. She is getting to the chair daily with staff assistance (5) Malnutrition: Impression: Severe protein calorie malnutrition given obvious muscle wasting, loss of subcutaneous fat, bedridden. She is eating 100% of meals, with occasional exception. BMI increased from 14.9 to 15.7 to 16.2 to 16.5, now 17.1 This is an improvement. This patient's diagnosis and treatment plan was discussed this AM with attending physician as a part of multi disciplinary rounding meeting. non billable rounding Qualifiers: Malnutrition type: unspecified type Qualified Code(s): E46 - Unspecified protein-calorie malnutrition
--- NOTE | 2025-08-23 15:21 | PROVIDER PROGRESS NOTE ---
Subjective Prog Note Date Prog Note Date: 08/23/25 Subjective Subjective: Smiles responsively, refuses a drink of water Current Medications Current Medications Current Medications: Current Medications Generic Name Dose Route Start Last Admin Trade Name Falguni PRN Reason Stop Dose Admin Acetaminophen 650 mg 05/21/25 14:24 08/23/25 13:08 Acetaminophen 325 Mg Tablet PO 650 mg Q4HR PRN Administration Pain 1 to 4, or Fever Apixaban 2.5 mg 05/29/25 21:00 08/23/25 07:50 Apixaban 2.5 Mg Tablet PO 2.5 mg BID WEST Administration Calcium Carbonate/Glycine 500 mg 06/04/25 09:00 08/23/25 07:51 Calcium Carbonate Chew 500 Mg Tablet PO 500 mg DAILY WEST Administration Cetirizine HCl 10 mg 07/06/25 11:37 08/17/25 08:26 Cetirizine 10 Mg Tablet PO 10 mg DAILY PRN Administration Allergy Symptoms Cholecalciferol 25 mcg 06/04/25 09:00 08/23/25 07:51 Cholecalciferol 25 Mcg Tablet PO 25 mcg DAILY WEST Administration Cyclobenzaprine HCl 10 mg 06/18/25 13:19 08/23/25 13:07 Cyclobenzaprine 10 Mg Tablet PO 10 mg TID PRN Administration Spasms Docusate Sodium 250 - 500 mg 07/02/25 10:35 Docusate Sodium 250 Mg Capsule PO DAILY PRN Constipation Polyethylene Glycol 17 gm 07/02/25 10:34 08/20/25 08:49 Polyethylene Glycol 3350 17 Gm Packet PO 17 gm DAILY PRN Administration Constipation Multivit/Folic Acid/Iron 1 tab 05/25/25 08:00 08/23/25 07:50 Vitamin Tablet PO 1 tab DAILYWM WEST Administration Propranolol HCl 10 mg 08/19/25 22:00 08/23/25 13:07 Propranolol 10 Mg Tablet PO 10 mg TID WEST Administration Tamsulosin HCl 0.4 mg 08/10/25 09:00 08/23/25 07:51 Tamsulosin 0.4 Mg Capsule PO 0.4 mg DAILY WEST Administration Thiamine HCl 100 mg 05/30/25 09:00 08/23/25 07:50 Thiamine 100 Mg Tablet PO 100 mg DAILY WEST Administration Zinc Oxide 113 gm 06/28/25 12:00 08/22/25 08:04 Cod Liver Oil/Zinc Oxide 113 Gm Tube TOP 1 applic PRN PRN Administration Skin Care Objective Vital Signs/Intake & Output Reviewed Vital Signs: Yes Vital Signs: Vital Signs x48h Temp Pulse Resp BP Pulse Ox 08/23/25 08:45 36.5 C 103 H 24 151/97 H 95 Intake & Output: Intake & Output 08/20/25 08/21/25 08/22/25 08/23/25 23:59 23:59 23:59 23:59 Intake Total 920 / 920 1160 / 1160 1180 / 1180 510 / 510 Balance 920 / 920 1160 / 1160 1180 / 1180 510 / 510 Weight (kg) 49.5 kg Objective General Appearance: positive No acute distress Eyes Bilateral: positive Normal inspection ENT: positive ENT inspection nml Neck: positive Nml inspection Respiratory: positive No respiratory distress Cardiovascular: positive Regular rate & rhythm Abdomen: positive No distention Skin: positive Color nml, No rash, Dry and Other (hypertrophic overgrown toenails) Extremities: positive Nml appearance and No pedal edema Neurologic/Psychiatric: positive Other (alert, smiles and laughs) Lab Results 08/17/25 13:26 08/17/25 13:26 Other Labs: Lab Results x24hrs 08/17/25 Range/Units 13:26 WBC 8.0 (4.8-10.8) x10^3/uL RBC 4.66 (4.20-5.40) 10^6/uL Hgb 15.3 (12.0-16.0) g/dL Hct 44.5 (37.0-47.0) % MCV 95.5 (81.0-99.0) fL MCH 32.8 H (27.0-31.0) pg MCHC 34.4 (32.0-36.0) g/dL RDW 12.2 (12.0-15.0) % Plt Count 406 (130-450) 10^3/uL MPV 9.8 (7.9-10.8) fL Neut # (Auto) 5.1 (1.5-6.6) 10^3/uL Lymph # (Auto) 1.5 (1.5-3.5) 10^3/uL [place] # (Auto) 1.1 H (0.0-1.0) 10^3/uL Eos # (Auto) 0.3 (0.0-0.7) 10^3/uL Baso # (Auto) 0.0 (0.0-0.1) 10^3/uL Absolute Nucleated RBC 0.00 x10^3/uL Nucleated RBC % 0.0 /100WBC Sodium 140 (135-145) mmol/L Potassium 3.7 (3.5-4.5) mmol/L Chloride 102 (101-111) mmol/L Carbon Dioxide 30 (21-32) mmol/L Anion Gap 8.0 (6-13) BUN 22 H (6-20) mg/dL Creatinine 0.6 (0.6-1.3) mg/dL Estimated GFR (MDRD) 102 (>89) Glucose 143 H (74-104) mg/dL Calcium 9.9 (8.5-10.3) mg/dL Magnesium 2.1 (1.7-2.3) mg/dL Sepsis Event Note (H) Evaluation Current Stage of Sepsis: Ruled out Assessment/Plan Problem List (1) Abnormal vital signs: Impression: 08/18: Workup unremarkable including CBC and BMP. EKG showing sinus tachycardia. I have ordered 2 L LR bolus and encouraged nursing to promote oral intake 08/19: oral intake encouraged. I am going to treat her heart rate and blood pressure with a beta juan antonio, started propranolol 10mg TID this PM, will monitor. Her affect is calm and satisfied, she is not showing outward signs of anxiety. 08/23: stable. 2 Selected Entries 08/22/25 14:01 08/22/25 15:39 08/23/25 08:45 Pulse Rate [Brachial] 91 85 103 H Blood Pressure [Right Brachial artery] 130/103 H 133/88 H 151/97 H (2) Polysubstance abuse: Impression: She has been in the hospital since 05/13/2025 UDS on presentation was positive for opiates, amphetamine, methamphetamine, cocaine She is out of the window for any acute withdrawal. She has not had any acute changes in her mental status for at least a week. 06/13: She is having some overall tenseness and hyperactivity, likely a psychomotor side effect of her polysubstance abuse. I am starting Suboxone 8-2 mg SL daily and will monitor for effect versus toxicity 7/2 7: She did not tolerate her dose of Suboxone very well. She was very lethargic through most of yesterday afternoon and is still only responding to pain. Last night I gave her a dose of Narcan with minimal effect. I gave her a liter of IV fluids and sent her for CT head out of an abundance of caution which showed no acute changes. I have discontinued her Suboxone, and I am keeping her on continuous pulse ox to watch for respiratory depression. I have Narcan ordered as needed. Chest x-ray was performed as she had some desaturation requiring 2 L O2. This showed no acute findings. 06/15: Her mentation is much improved today as the Suboxone is washing out of her system. As we do not stock smaller doses of Suboxone, we will likely not pursue this any further. She is back to her mentation as of a few days ago. Remains medically clear. Today is nonbillable rounding 06/16: No change in condition, no change in plan. (3) Altered mental status: Impression: Altered mentation likely secondary to polysubstance abuse UDS on presentation positive for opiates, amphetamine, methamphetamine, cocaine Patient was held in observation, and repeat CT and MRI were performed. MRI shows diffuse white matter hyperintense signal which may represent edema. Not the typical presentation of press Her altered mentation is not affected by her blood pressure, meaning it is not improved whenever her blood pressure is within normal limits Case discussed with neurology on 05/26, who recommended LP, but stated that this is likely sequela of hypoxic event from drug use. thiamine 500 mg IM 3 times daily started on 05 26,for 3 days, now on po thiamine daily 06/06 Daughter Ina made contact with RN. I also spoke with her, at this point, her mother's condition is sub acute. No need for interventions. Ina is aware her mother needs retirement care. She is willing to assist with this, but neither she, nor her mother have a safe place to live. Qualifiers: Altered mental status type: stupor Qualified Code(s): R40.1 - Stupor (4) Pubic bone fracture: Impression: X-ray hip on 05/25 shows moderately displaced right inferior pubic ramus fracture with extension in the medial acetabular column and suspicion for extension to the pelvic ring. Case was discussed with on-call orthopedist, who reports this is nonoperative. She is full weightbearing as tolerated and will need a walker at discharge. If her mentation improves, we will order PT jesús, currently not able to particpate with PT. She has been seen 1x for PT, no rehab potentential. She is getting to the chair daily with staff assistance (5) Malnutrition: Impression: Severe protein calorie malnutrition given obvious muscle wasting, loss of subcutaneous fat, bedridden. She is eating 100% of meals, with occasional exception. BMI increased from 14.9 to 17.6. This is an improvement. This patient's diagnosis and treatment plan was discussed this AM with attending physician as a part of multi disciplinary rounding meeting. non billable rounding Qualifiers: Malnutrition type: unspecified type Qualified Code(s): E46 - Unspecified protein-calorie malnutrition
[2025-08-24] MEDS: PROPRANOLOL 10 MG TABLET PO SCH (09:27)
--- NOTE | 2025-08-24 18:47 | PROVIDER PROGRESS NOTE ---
Subjective Prog Note Date Prog Note Date: 08/24/25 Subjective Subjective: She is eating with [employer], has been able to finish 75% of her meal. Seems content this evening. Current Medications Current Medications Current Medications: Current Medications Generic Name Dose Route Start Last Admin Trade Name Falguni PRN Reason Stop Dose Admin Acetaminophen 650 mg 05/21/25 14:24 08/24/25 09:26 Acetaminophen 325 Mg Tablet PO 650 mg Q4HR PRN Administration Pain 1 to 4, or Fever Apixaban 2.5 mg 05/29/25 21:00 08/24/25 09:26 Apixaban 2.5 Mg Tablet PO 2.5 mg BID WEST Administration Calcium Carbonate/Glycine 500 mg 06/04/25 09:00 08/24/25 09:26 Calcium Carbonate Chew 500 Mg Tablet PO 500 mg DAILY WEST Administration Cetirizine HCl 10 mg 07/06/25 11:37 08/24/25 09:26 Cetirizine 10 Mg Tablet PO 10 mg DAILY PRN Administration Allergy Symptoms Cholecalciferol 25 mcg 06/04/25 09:00 08/24/25 09:25 Cholecalciferol 25 Mcg Tablet PO 25 mcg DAILY WEST Administration Cyclobenzaprine HCl 10 mg 06/18/25 13:19 08/24/25 09:26 Cyclobenzaprine 10 Mg Tablet PO 10 mg TID PRN Administration Spasms Docusate Sodium 250 - 500 mg 07/02/25 10:35 Docusate Sodium 250 Mg Capsule PO DAILY PRN Constipation Polyethylene Glycol 17 gm 07/02/25 10:34 08/20/25 08:49 Polyethylene Glycol 3350 17 Gm Packet PO 17 gm DAILY PRN Administration Constipation Multivit/Folic Acid/Iron 1 tab 05/25/25 08:00 08/24/25 09:26 Vitamin Tablet PO 1 tab DAILYWM WEST Administration Propranolol HCl 10 mg 08/24/25 07:39 08/24/25 14:22 Propranolol 10 Mg Tablet PO 10 mg 0800,1400,2200 WEST Administration Tamsulosin HCl 0.4 mg 08/10/25 09:00 08/24/25 09:26 Tamsulosin 0.4 Mg Capsule PO 0.4 mg DAILY WEST Administration Thiamine HCl 100 mg 05/30/25 09:00 08/24/25 09:26 Thiamine 100 Mg Tablet PO 100 mg DAILY WEST Administration Zinc Oxide 113 gm 06/28/25 12:00 08/22/25 08:04 Cod Liver Oil/Zinc Oxide 113 Gm Tube TOP 1 applic PRN PRN Administration Skin Care Objective Vital Signs/Intake & Output Reviewed Vital Signs: Yes Vital Signs: Vital Signs x48h Temp Pulse Resp BP Pulse Ox 08/23/25 08:45 36.5 C 103 H 24 151/97 H 95 Intake & Output: Intake & Output 08/21/25 08/22/25 08/23/25 08/24/25 23:59 23:59 23:59 23:59 Intake Total 1160 / 1160 1180 / 1180 710 / 710 1000 / 1000 Balance 1160 / 1160 1180 / 1180 710 / 710 1000 / 1000 Weight (kg) 49.5 kg Objective General Appearance: positive No acute distress Eyes Bilateral: positive Normal inspection ENT: positive ENT inspection nml Neck: positive Nml inspection Respiratory: positive No respiratory distress Cardiovascular: positive Regular rate & rhythm Abdomen: positive No distention Skin: positive Color nml, No rash, Dry and Other (hypertrophic overgrown toenails) Extremities: positive Nml appearance and No pedal edema Neurologic/Psychiatric: positive Other (sitting up in bed. working with [employer] to eat a puree diet. ) Lab Results 08/17/25 13:26 08/17/25 13:26 Other Labs: Lab Results x24hrs 08/17/25 Range/Units 13:26 WBC 8.0 (4.8-10.8) x10^3/uL RBC 4.66 (4.20-5.40) 10^6/uL Hgb 15.3 (12.0-16.0) g/dL Hct 44.5 (37.0-47.0) % MCV 95.5 (81.0-99.0) fL MCH 32.8 H (27.0-31.0) pg MCHC 34.4 (32.0-36.0) g/dL RDW 12.2 (12.0-15.0) % Plt Count 406 (130-450) 10^3/uL MPV 9.8 (7.9-10.8) fL Neut # (Auto) 5.1 (1.5-6.6) 10^3/uL Lymph # (Auto) 1.5 (1.5-3.5) 10^3/uL [place] # (Auto) 1.1 H (0.0-1.0) 10^3/uL Eos # (Auto) 0.3 (0.0-0.7) 10^3/uL Baso # (Auto) 0.0 (0.0-0.1) 10^3/uL Absolute Nucleated RBC 0.00 x10^3/uL Nucleated RBC % 0.0 /100WBC Sodium 140 (135-145) mmol/L Potassium 3.7 (3.5-4.5) mmol/L Chloride 102 (101-111) mmol/L Carbon Dioxide 30 (21-32) mmol/L Anion Gap 8.0 (6-13) BUN 22 H (6-20) mg/dL Creatinine 0.6 (0.6-1.3) mg/dL Estimated GFR (MDRD) 102 (>89) Glucose 143 H (74-104) mg/dL Calcium 9.9 (8.5-10.3) mg/dL Magnesium 2.1 (1.7-2.3) mg/dL Sepsis Event Note (H) Evaluation Current Stage of Sepsis: Ruled out Assessment/Plan Problem List (1) Abnormal vital signs: Impression: 08/18: Workup unremarkable including CBC and BMP. EKG showing sinus tachycardia. I have ordered 2 L LR bolus and encouraged nursing to promote oral intake 08/19: oral intake encouraged. I am going to treat her heart rate and blood pressure with a beta juan antonio, started propranolol 10mg TID this PM, will monitor. Her affect is calm and satisfied, she is not showing outward signs of anxiety. 08/24: stable. Selected Entries 08/23/25 08:45 08/23/25 21:35 08/24/25 08:45 Pulse Rate [Brachial] 103 H 98 119 H Blood Pressure [Right Brachial artery] 151/97 H 121/89 130/91 H 2 (2) Polysubstance abuse: Impression: She has been in the hospital since 05/13/2025 UDS on presentation was positive for opiates, amphetamine, methamphetamine, cocaine She is out of the window for any acute withdrawal. She has not had any acute changes in her mental status for at least a week. 06/13: She is having some overall tenseness and hyperactivity, likely a psychomotor side effect of her polysubstance abuse. I am starting Suboxone 8-2 mg SL daily and will monitor for effect versus toxicity 05/20: She did not tolerate her dose of Suboxone very well. She was very lethargic through most of yesterday afternoon and is still only responding to pain. Last night I gave her a dose of Narcan with minimal effect. I gave her a liter of IV fluids and sent her for CT head out of an abundance of caution which showed no acute changes. I have discontinued her Suboxone, and I am keeping her on continuous pulse ox to watch for respiratory depression. I have Narcan ordered as needed. Chest x-ray was performed as she had some desaturation requiring 2 L O2. This showed no acute findings. 06/15: Her mentation is much improved today as the Suboxone is washing out of her system. As we do not stock smaller doses of Suboxone, we will likely not pursue this any further. She is back to her mentation as of a few days ago. Remains medically clear. Today is nonbillable rounding 06/16: No change in condition, no change in plan. (3) Altered mental status: Impression: Altered mentation likely secondary to polysubstance abuse UDS on presentation positive for opiates, amphetamine, methamphetamine, cocaine Patient was held in observation, and repeat CT and MRI were performed. MRI shows diffuse white matter hyperintense signal which may represent edema. Not the typical presentation of press Her altered mentation is not affected by her blood pressure, meaning it is not improved whenever her blood pressure is within normal limits Case discussed with neurology on 05/26, who recommended LP, but stated that this is likely sequela of hypoxic event from drug use. thiamine 500 mg IM 3 times daily started on 05 26,for 3 days, now on po thiamine daily 06/06 Daughter Ina made contact with RN. I also spoke with her, at this point, her mother's condition is sub acute. No need for interventions. Ina is aware her mother needs manager long term care care. She is willing to assist with this, but neither she, nor her mother have a safe place to live. Qualifiers: Altered mental status type: stupor Qualified Code(s): R40.1 - Stupor (4) Pubic bone fracture: Impression: X-ray hip on 05/25 shows moderately displaced right inferior pubic ramus fracture with extension in the medial acetabular column and suspicion for extension to the pelvic ring. Case was discussed with on-call orthopedist, who reports this is nonoperative. She is full weightbearing as tolerated and will need a walker at discharge. If her mentation improves, we will order PT jesús, currently not able to particpate with PT. She has been seen 1x for PT, no rehab potentential. She is getting to the chair daily with staff assistance (5) Malnutrition: Impression: Severe protein calorie malnutrition given obvious muscle wasting, loss of subcutaneous fat, bedridden. She is eating 100% of meals, with occasional exception. BMI increased from 14.9 to 17.6. This is an improvement. This patient's diagnosis and treatment plan was discussed this AM with attending physician as a part of multi disciplinary rounding meeting. non billable rounding Qualifiers: Malnutrition type: unspecified type Qualified Code(s): E46 - Unspecified protein-calorie malnutrition
--- NOTE | 2025-08-25 14:35 | PROVIDER PROGRESS NOTE ---
Subjective Prog Note Date Prog Note Date: 08/25/25 Subjective Subjective: She is sitting in bed after dinner, calm and non verbal. Current Medications Current Medications Current Medications: Current Medications Generic Name Dose Route Start Last Admin Trade Name Falguni PRN Reason Stop Dose Admin Acetaminophen 650 mg 05/21/25 14:24 08/25/25 07:55 Acetaminophen 325 Mg Tablet PO 650 mg Q4HR PRN Administration Pain 1 to 4, or Fever Apixaban 2.5 mg 05/29/25 21:00 08/25/25 07:56 Apixaban 2.5 Mg Tablet PO 2.5 mg BID WEST Administration Calcium Carbonate/Glycine 500 mg 06/04/25 09:00 08/25/25 07:55 Calcium Carbonate Chew 500 Mg Tablet PO 500 mg DAILY WEST Administration Cetirizine HCl 10 mg 07/06/25 11:37 08/25/25 07:56 Cetirizine 10 Mg Tablet PO 10 mg DAILY PRN Administration Allergy Symptoms Cholecalciferol 25 mcg 06/04/25 09:00 08/25/25 07:55 Cholecalciferol 25 Mcg Tablet PO 25 mcg DAILY WEST Administration Cyclobenzaprine HCl 10 mg 06/18/25 13:19 08/25/25 07:56 Cyclobenzaprine 10 Mg Tablet PO 10 mg TID PRN Administration Spasms Docusate Sodium 250 - 500 mg 07/02/25 10:35 Docusate Sodium 250 Mg Capsule PO DAILY PRN Constipation Polyethylene Glycol 17 gm 07/02/25 10:34 08/20/25 08:49 Polyethylene Glycol 3350 17 Gm Packet PO 17 gm DAILY PRN Administration Constipation Multivit/Folic Acid/Iron 1 tab 05/25/25 08:00 08/25/25 07:54 Vitamin Tablet PO 1 tab DAILYWM WEST Administration Propranolol HCl 10 mg 08/24/25 07:39 08/25/25 13:51 Propranolol 10 Mg Tablet PO 10 mg 0800,1400,2200 WEST Administration Tamsulosin HCl 0.4 mg 08/10/25 09:00 08/25/25 07:55 Tamsulosin 0.4 Mg Capsule PO 0.4 mg DAILY WEST Administration Thiamine HCl 100 mg 05/30/25 09:00 08/25/25 07:55 Thiamine 100 Mg Tablet PO 100 mg DAILY WEST Administration Zinc Oxide 113 gm 06/28/25 12:00 08/25/25 07:54 Cod Liver Oil/Zinc Oxide 113 Gm Tube TOP 1 applic PRN PRN Administration Skin Care Objective Vital Signs/Intake & Output Reviewed Vital Signs: Yes Vital Signs: Vital Signs x48h Temp Pulse Resp BP Pulse Ox 08/25/25 08:20 36.4 C L 114 H 20 131/82 H 96 Intake & Output: Intake & Output 08/22/25 08/23/25 08/24/25 08/25/25 23:59 23:59 23:59 23:59 Intake Total 1180 / 1180 710 / 710 1120 / 1120 460 / 460 Balance 1180 / 1180 710 / 710 1120 / 1120 460 / 460 Weight (kg) 49.5 kg Objective General Appearance: positive No acute distress Eyes Bilateral: positive Normal inspection ENT: positive ENT inspection nml Neck: positive Nml inspection Respiratory: positive No respiratory distress Cardiovascular: positive Regular rate & rhythm Abdomen: positive No distention Skin: positive Color nml, No rash, Dry and Other (hypertrophic overgrown toenails) Extremities: positive Nml appearance and No pedal edema Neurologic/Psychiatric: positive Other (sitting up in bed) Lab Results 08/17/25 13:26 08/17/25 13:26 Other Labs: Lab Results x24hrs 08/17/25 Range/Units 13:26 WBC 8.0 (4.8-10.8) x10^3/uL RBC 4.66 (4.20-5.40) 10^6/uL Hgb 15.3 (12.0-16.0) g/dL Hct 44.5 (37.0-47.0) % MCV 95.5 (81.0-99.0) fL MCH 32.8 H (27.0-31.0) pg MCHC 34.4 (32.0-36.0) g/dL RDW 12.2 (12.0-15.0) % Plt Count 406 (130-450) 10^3/uL MPV 9.8 (7.9-10.8) fL Neut # (Auto) 5.1 (1.5-6.6) 10^3/uL Lymph # (Auto) 1.5 (1.5-3.5) 10^3/uL [place] # (Auto) 1.1 H (0.0-1.0) 10^3/uL Eos # (Auto) 0.3 (0.0-0.7) 10^3/uL Baso # (Auto) 0.0 (0.0-0.1) 10^3/uL Absolute Nucleated RBC 0.00 x10^3/uL Nucleated RBC % 0.0 /100WBC Sodium 140 (135-145) mmol/L Potassium 3.7 (3.5-4.5) mmol/L Chloride 102 (101-111) mmol/L Carbon Dioxide 30 (21-32) mmol/L Anion Gap 8.0 (6-13) BUN 22 H (6-20) mg/dL Creatinine 0.6 (0.6-1.3) mg/dL Estimated GFR (MDRD) 102 (>89) Glucose 143 H (74-104) mg/dL Calcium 9.9 (8.5-10.3) mg/dL Magnesium 2.1 (1.7-2.3) mg/dL Sepsis Event Note (H) Evaluation Current Stage of Sepsis: Ruled out Assessment/Plan Problem List (1) Abnormal vital signs: Impression: 08/18: Workup unremarkable including CBC and BMP. EKG showing sinus tachycardia. I have ordered 2 L LR bolus and encouraged nursing to promote oral intake 08/19: oral intake encouraged. I am going to treat her heart rate and blood pressure with a beta juan antonio, started propranolol 10mg TID this PM, will monitor. Her affect is calm and satisfied, she is not showing outward signs of anxiety. 08/25: stable. Selected Entries 08/24/25 08:45 08/24/25 19:01 08/25/25 08:20 Pulse Rate [Brachial] 119 H 96 114 H Blood Pressure [Right Brachial artery] 130/91 H 129/86 131/82 H (2) Polysubstance abuse: Impression: She has been in the hospital since 05/13/2025 UDS on presentation was positive for opiates, amphetamine, methamphetamine, cocaine She is out of the window for any acute withdrawal. She has not had any acute changes in her mental status for at least a week. 06/13: She is having some overall tenseness and hyperactivity, likely a psychomotor side effect of her polysubstance abuse. I am starting Suboxone 8-2 mg SL daily and will monitor for effect versus toxicity 7/2 7: She did not tolerate her dose of Suboxone very well. She was very lethargic through most of yesterday afternoon and is still only responding to pain. Last night I gave her a dose of Narcan with minimal effect. I gave her a liter of IV fluids and sent her for CT head out of an abundance of caution which showed no acute changes. I have discontinued her Suboxone, and I am keeping her on continuous pulse ox to watch for respiratory depression. I have Narcan ordered as needed. Chest x-ray was performed as she had some desaturation requiring 2 L O2. This showed no acute findings. 06/15: Her mentation is much improved today as the Suboxone is washing out of her system. As we do not stock smaller doses of Suboxone, we will likely not pursue this any further. She is back to her mentation as of a few days ago. Remains medically clear. Today is nonbillable rounding 06/16: No change in condition, no change in plan. (3) Altered mental status: Impression: Altered mentation likely secondary to polysubstance abuse UDS on presentation positive for opiates, amphetamine, methamphetamine, cocaine Patient was held in observation, and repeat CT and MRI were performed. MRI shows diffuse white matter hyperintense signal which may represent edema. Not the typical presentation of press Her altered mentation is not affected by her blood pressure, meaning it is not improved whenever her blood pressure is within normal limits Case discussed with neurology on 05/26, who recommended LP, but stated that this is likely sequela of hypoxic event from drug use. thiamine 500 mg IM 3 times daily started on 05 26,for 3 days, now on po thiamine daily 06/06 Daughter Ina made contact with RN. I also spoke with her, at this point, her mother's condition is sub acute. No need for interventions. Ina is aware her mother needs correction care. She is willing to assist with this, but neither she, nor her mother have a safe place to live. Qualifiers: Altered mental status type: stupor Qualified Code(s): R40.1 - Stupor (4) Pubic bone fracture: Impression: X-ray hip on 05/25 shows moderately displaced right inferior pubic ramus fracture with extension in the medial acetabular column and suspicion for extension to the pelvic ring. Case was discussed with on-call orthopedist, who reports this is nonoperative. She is full weightbearing as tolerated and will need a walker at discharge. If her mentation improves, we will order PT jesús, currently not able to particpate with PT. She has been seen 1x for PT, no rehab potentential. She is getting to the chair daily with staff assistance (5) Malnutrition: Impression: Severe protein calorie malnutrition given obvious muscle wasting, loss of subcutaneous fat, bedridden. She is eating 100% of meals, with occasional exception. BMI increased from 14.9 to 17.6. This is an improvement. This patient's diagnosis and treatment plan was discussed this AM with attending physician as a part of multi disciplinary rounding meeting. non billable rounding Qualifiers: Malnutrition type: unspecified type Qualified Code(s): E46 - Unspecified protein-calorie malnutrition
--- NOTE | 2025-08-26 14:26 | PROVIDER PROGRESS NOTE ---
Subjective Prog Note Date Prog Note Date: 08/26/25 Subjective Pt reports feeling: No change Current Medications Current Medications Current Medications: Current Medications Generic Name Dose Route Start Last Admin Trade Name Falguni PRN Reason Stop Dose Admin Acetaminophen 650 mg 05/21/25 14:24 08/25/25 07:55 Acetaminophen 325 Mg Tablet PO 650 mg Q4HR PRN Administration Pain 1 to 4, or Fever Apixaban 2.5 mg 05/29/25 21:00 08/26/25 08:30 Apixaban 2.5 Mg Tablet PO 2.5 mg BID WEST Administration Calcium Carbonate/Glycine 500 mg 06/04/25 09:00 08/26/25 08:30 Calcium Carbonate Chew 500 Mg Tablet PO 500 mg DAILY WEST Administration Cetirizine HCl 10 mg 07/06/25 11:37 08/25/25 07:56 Cetirizine 10 Mg Tablet PO 10 mg DAILY PRN Administration Allergy Symptoms Cholecalciferol 25 mcg 06/04/25 09:00 08/26/25 08:30 Cholecalciferol 25 Mcg Tablet PO 25 mcg DAILY WEST Administration Cyclobenzaprine HCl 10 mg 06/18/25 13:19 08/26/25 08:29 Cyclobenzaprine 10 Mg Tablet PO 10 mg TID PRN Administration Spasms Docusate Sodium 250 - 500 mg 07/02/25 10:35 Docusate Sodium 250 Mg Capsule PO DAILY PRN Constipation Polyethylene Glycol 17 gm 07/02/25 10:34 08/20/25 08:49 Polyethylene Glycol 3350 17 Gm Packet PO 17 gm DAILY PRN Administration Constipation Multivit/Folic Acid/Iron 1 tab 05/25/25 08:00 08/26/25 08:29 Vitamin Tablet PO 1 tab DAILYWM WEST Administration Propranolol HCl 10 mg 08/24/25 07:39 08/26/25 08:29 Propranolol 10 Mg Tablet PO 10 mg 0800,1400,2200 WEST Administration Tamsulosin HCl 0.4 mg 08/10/25 09:00 08/26/25 08:30 Tamsulosin 0.4 Mg Capsule PO 0.4 mg DAILY WEST Administration Thiamine HCl 100 mg 05/30/25 09:00 08/26/25 08:29 Thiamine 100 Mg Tablet PO 100 mg DAILY WEST Administration Zinc Oxide 113 gm 06/28/25 12:00 08/25/25 07:54 Cod Liver Oil/Zinc Oxide 113 Gm Tube TOP 1 applic PRN PRN Administration Skin Care Objective Vital Signs/Intake & Output Reviewed Vital Signs: Yes Vital Signs: Vital Signs x48h Temp Pulse Pulse Resp BP Pulse Ox 08/26/25 09:00 36.6 C 104 H 20 147/80 H 95 08/26/25 06:45 113 H 158/109 H 08/26/25 06:33 36.7 C 114 H 20 95 Intake & Output: Intake & Output 08/23/25 08/24/25 08/25/25 08/26/25 23:59 23:59 23:59 23:59 Intake Total 710 / 710 1120 / 1120 1090 / 1090 590 / 590 Balance 710 / 710 1120 / 1120 1090 / 1090 590 / 590 Objective General Appearance: positive No acute distress Eyes Bilateral: positive Normal inspection ENT: positive ENT inspection nml Neck: positive Nml inspection Respiratory: positive No respiratory distress Cardiovascular: positive Regular rate & rhythm Abdomen: positive No distention Skin: positive Color nml, No rash, Dry and Other (hypertrophic overgrown toenails) Extremities: positive Nml appearance and No pedal edema Neurologic/Psychiatric: positive Other (sitting up in bed) Lab Results 08/17/25 13:26 08/17/25 13:26 Other Labs: Lab Results x24hrs 08/17/25 Range/Units 13:26 WBC 8.0 (4.8-10.8) x10^3/uL RBC 4.66 (4.20-5.40) 10^6/uL Hgb 15.3 (12.0-16.0) g/dL Hct 44.5 (37.0-47.0) % MCV 95.5 (81.0-99.0) fL MCH 32.8 H (27.0-31.0) pg MCHC 34.4 (32.0-36.0) g/dL RDW 12.2 (12.0-15.0) % Plt Count 406 (130-450) 10^3/uL MPV 9.8 (7.9-10.8) fL Neut # (Auto) 5.1 (1.5-6.6) 10^3/uL Lymph # (Auto) 1.5 (1.5-3.5) 10^3/uL [place] # (Auto) 1.1 H (0.0-1.0) 10^3/uL Eos # (Auto) 0.3 (0.0-0.7) 10^3/uL Baso # (Auto) 0.0 (0.0-0.1) 10^3/uL Absolute Nucleated RBC 0.00 x10^3/uL Nucleated RBC % 0.0 /100WBC Sodium 140 (135-145) mmol/L Potassium 3.7 (3.5-4.5) mmol/L Chloride 102 (101-111) mmol/L Carbon Dioxide 30 (21-32) mmol/L Anion Gap 8.0 (6-13) BUN 22 H (6-20) mg/dL Creatinine 0.6 (0.6-1.3) mg/dL Estimated GFR (MDRD) 102 (>89) Glucose 143 H (74-104) mg/dL Calcium 9.9 (8.5-10.3) mg/dL Magnesium 2.1 (1.7-2.3) mg/dL Sepsis Event Note (H) Evaluation Current Stage of Sepsis: Ruled out Assessment/Plan Problem List (1) Abnormal vital signs: Impression: 08/18: Workup unremarkable including CBC and BMP. EKG showing sinus tachycardia. I have ordered 2 L LR bolus and encouraged nursing to promote oral intake 08/19: oral intake encouraged. I am going to treat her heart rate and blood pressure with a beta juan antonio, started propranolol 10mg TID this PM, will monitor. Her affect is calm and satisfied, she is not showing outward signs of anxiety. 08/25: stable. Selected Entries 08/24/25 08:45 08/24/25 19:01 08/25/25 08:20 Pulse Rate [Brachial] 119 H 96 114 H Blood Pressure [Right Brachial artery] 130/91 H 129/86 131/82 H (2) Polysubstance abuse: Impression: She has been in the hospital since 05/13/2025 UDS on presentation was positive for opiates, amphetamine, methamphetamine, cocaine She is out of the window for any acute withdrawal. She has not had any acute changes in her mental status for at least a week. 06/13: She is having some overall tenseness and hyperactivity, likely a psychomotor side effect of her polysubstance abuse. I am starting Suboxone 8-2 mg SL daily and will monitor for effect versus toxicity 05/20 7: She did not tolerate her dose of Suboxone very well. She was very lethargic through most of yesterday afternoon and is still only responding to pain. Last night I gave her a dose of Narcan with minimal effect. I gave her a liter of IV fluids and sent her for CT head out of an abundance of caution which showed no acute changes. I have discontinued her Suboxone, and I am keeping her on continuous pulse ox to watch for respiratory depression. I have Narcan ordered as needed. Chest x-ray was performed as she had some desaturation requiring 2 L O2. This showed no acute findings. 06/15: Her mentation is much improved today as the Suboxone is washing out of her system. As we do not stock smaller doses of Suboxone, we will likely not pursue this any further. She is back to her mentation as of a few days ago. Remains medically clear. Today is nonbillable rounding 06/16: No change in condition, no change in plan. (3) Altered mental status: Impression: Altered mentation likely secondary to polysubstance abuse UDS on presentation positive for opiates, amphetamine, methamphetamine, cocaine Patient was held in observation, and repeat CT and MRI were performed. MRI shows diffuse white matter hyperintense signal which may represent edema. Not the typical presentation of press Her altered mentation is not affected by her blood pressure, meaning it is not improved whenever her blood pressure is within normal limits Case discussed with neurology on 05/26, who recommended LP, but stated that this is likely sequela of hypoxic event from drug use. thiamine 500 mg IM 3 times daily started on 05 26,for 3 days, now on po thiamine daily 06/06 Daughter Ina made contact with RN. I also spoke with her, at this point, her mother's condition is sub acute. No need for interventions. Ina is aware her mother needs [facility] care. She is willing to assist with this, but neither she, nor her mother have a safe place to live. Qualifiers: Altered mental status type: stupor Qualified Code(s): R40.1 - Stupor (4) Pubic bone fracture: Impression: X-ray hip on 05/25 shows moderately displaced right inferior pubic ramus fracture with extension in the medial acetabular column and suspicion for extension to the pelvic ring. Case was discussed with on-call orthopedist, who reports this is nonoperative. She is full weightbearing as tolerated and will need a walker at discharge. If her mentation improves, we will order PT jesús, currently not able to particpate with PT. She has been seen 1x for PT, no rehab potentential. She is getting to the chair daily with staff assistance (5) Malnutrition: Impression: Severe protein calorie malnutrition given obvious muscle wasting, loss of subcutaneous fat, bedridden. She is eating 100% of meals, with occasional exception. BMI increased from 14.9 to 17.6. This is an improvement. This patient's diagnosis and treatment plan was discussed this AM with attending physician as a part of multi disciplinary rounding meeting. non billable rounding Qualifiers: Malnutrition type: unspecified type Qualified Code(s): E46 - Unspecified protein-calorie malnutrition
--- NOTE | 2025-08-27 12:01 | PROVIDER PROGRESS NOTE ---
Subjective Prog Note Date Prog Note Date: 08/27/25 Subjective Pt reports feeling: No change Current Medications Current Medications Current Medications: Current Medications Generic Name Dose Route Start Last Admin Trade Name Falguni PRN Reason Stop Dose Admin Acetaminophen 650 mg 05/21/25 14:24 08/25/25 07:55 Acetaminophen 325 Mg Tablet PO 650 mg Q4HR PRN Administration Pain 1 to 4, or Fever Apixaban 2.5 mg 05/29/25 21:00 08/27/25 08:23 Apixaban 2.5 Mg Tablet PO 2.5 mg BID WEST Administration Calcium Carbonate/Glycine 500 mg 06/04/25 09:00 08/27/25 08:23 Calcium Carbonate Chew 500 Mg Tablet PO 500 mg DAILY WEST Administration Cetirizine HCl 10 mg 07/06/25 11:37 08/25/25 07:56 Cetirizine 10 Mg Tablet PO 10 mg DAILY PRN Administration Allergy Symptoms Cholecalciferol 25 mcg 06/04/25 09:00 08/27/25 08:23 Cholecalciferol 25 Mcg Tablet PO 25 mcg DAILY WEST Administration Cyclobenzaprine HCl 10 mg 06/18/25 13:19 08/26/25 08:29 Cyclobenzaprine 10 Mg Tablet PO 10 mg TID PRN Administration Spasms Docusate Sodium 250 - 500 mg 07/02/25 10:35 Docusate Sodium 250 Mg Capsule PO DAILY PRN Constipation Polyethylene Glycol 17 gm 07/02/25 10:34 08/20/25 08:49 Polyethylene Glycol 3350 17 Gm Packet PO 17 gm DAILY PRN Administration Constipation Multivit/Folic Acid/Iron 1 tab 05/25/25 08:00 08/27/25 08:23 Vitamin Tablet PO 1 tab DAILYWM WEST Administration Propranolol HCl 10 mg 08/24/25 07:39 08/27/25 08:23 Propranolol 10 Mg Tablet PO 10 mg 0800,1400,2200 WEST Administration Tamsulosin HCl 0.4 mg 08/10/25 09:00 08/27/25 08:23 Tamsulosin 0.4 Mg Capsule PO 0.4 mg DAILY WEST Administration Thiamine HCl 100 mg 05/30/25 09:00 08/27/25 08:23 Thiamine 100 Mg Tablet PO 100 mg DAILY WEST Administration Zinc Oxide 113 gm 06/28/25 12:00 08/27/25 08:22 Cod Liver Oil/Zinc Oxide 113 Gm Tube TOP 1 applic PRN PRN Administration Skin Care Objective Vital Signs/Intake & Output Reviewed Vital Signs: Yes Vital Signs: Vital Signs x48h Temp Pulse Resp BP Pulse Ox 08/27/25 08:59 36.4 C L 103 H 20 157/96 H 92 Intake & Output: Intake & Output 08/24/25 08/25/25 08/26/25 08/27/25 23:59 23:59 23:59 23:59 Intake Total 1120 / 1120 1090 / 1090 1050 / 1050 250 / 250 Balance 1120 / 1120 1090 / 1090 1050 / 1050 250 / 250 Objective General Appearance: positive No acute distress Eyes Bilateral: positive Normal inspection ENT: positive ENT inspection nml Neck: positive Nml inspection Respiratory: positive No respiratory distress Cardiovascular: positive Regular rate & rhythm Abdomen: positive No distention Skin: positive Color nml, No rash, Dry and Other (hypertrophic overgrown toenails) Extremities: positive Nml appearance and No pedal edema Neurologic/Psychiatric: positive Other (sitting up in bed) Lab Results 08/17/25 13:26 08/17/25 13:26 Other Labs: Lab Results x24hrs 08/17/25 Range/Units 13:26 WBC 8.0 (4.8-10.8) x10^3/uL RBC 4.66 (4.20-5.40) 10^6/uL Hgb 15.3 (12.0-16.0) g/dL Hct 44.5 (37.0-47.0) % MCV 95.5 (81.0-99.0) fL MCH 32.8 H (27.0-31.0) pg MCHC 34.4 (32.0-36.0) g/dL RDW 12.2 (12.0-15.0) % Plt Count 406 (130-450) 10^3/uL MPV 9.8 (7.9-10.8) fL Neut # (Auto) 5.1 (1.5-6.6) 10^3/uL Lymph # (Auto) 1.5 (1.5-3.5) 10^3/uL [place] # (Auto) 1.1 H (0.0-1.0) 10^3/uL Eos # (Auto) 0.3 (0.0-0.7) 10^3/uL Baso # (Auto) 0.0 (0.0-0.1) 10^3/uL Absolute Nucleated RBC 0.00 x10^3/uL Nucleated RBC % 0.0 /100WBC Sodium 140 (135-145) mmol/L Potassium 3.7 (3.5-4.5) mmol/L Chloride 102 (101-111) mmol/L Carbon Dioxide 30 (21-32) mmol/L Anion Gap 8.0 (6-13) BUN 22 H (6-20) mg/dL Creatinine 0.6 (0.6-1.3) mg/dL Estimated GFR (MDRD) 102 (>89) Glucose 143 H (74-104) mg/dL Calcium 9.9 (8.5-10.3) mg/dL Magnesium 2.1 (1.7-2.3) mg/dL Sepsis Event Note (H) Evaluation Current Stage of Sepsis: Ruled out Assessment/Plan Problem List (1) Abnormal vital signs: Impression: 08/18: Workup unremarkable including CBC and BMP. EKG showing sinus tachycardia. I have ordered 2 L LR bolus and encouraged nursing to promote oral intake 08/19: oral intake encouraged. I am going to treat her heart rate and blood pressure with a beta juan antonio, started propranolol 10mg TID this PM, will monitor. Her affect is calm and satisfied, she is not showing outward signs of anxiety. 08/25: stable. Selected Entries 08/24/25 08:45 08/24/25 19:01 08/25/25 08:20 Pulse Rate [Brachial] 119 H 96 114 H Blood Pressure [Right Brachial artery] 130/91 H 129/86 131/82 H (2) Polysubstance abuse: Impression: She has been in the hospital since 05/13/2025 UDS on presentation was positive for opiates, amphetamine, methamphetamine, cocaine She is out of the window for any acute withdrawal. She has not had any acute changes in her mental status for at least a week. 06/13: She is having some overall tenseness and hyperactivity, likely a psychomotor side effect of her polysubstance abuse. I am starting Suboxone 8-2 mg SL daily and will monitor for effect versus toxicity 05/20 7: She did not tolerate her dose of Suboxone very well. She was very lethargic through most of yesterday afternoon and is still only responding to pain. Last night I gave her a dose of Narcan with minimal effect. I gave her a liter of IV fluids and sent her for CT head out of an abundance of caution which showed no acute changes. I have discontinued her Suboxone, and I am keeping her on continuous pulse ox to watch for respiratory depression. I have Narcan ordered as needed. Chest x-ray was performed as she had some desaturation requiring 2 L O2. This showed no acute findings. 06/15: Her mentation is much improved today as the Suboxone is washing out of her system. As we do not stock smaller doses of Suboxone, we will likely not pursue this any further. She is back to her mentation as of a few days ago. Remains medically clear. Today is nonbillable rounding 06/16: No change in condition, no change in plan. (3) Altered mental status: Impression: Altered mentation likely secondary to polysubstance abuse UDS on presentation positive for opiates, amphetamine, methamphetamine, cocaine Patient was held in observation, and repeat CT and MRI were performed. MRI shows diffuse white matter hyperintense signal which may represent edema. Not the typical presentation of press Her altered mentation is not affected by her blood pressure, meaning it is not improved whenever her blood pressure is within normal limits Case discussed with neurology on 05/26, who recommended LP, but stated that this is likely sequela of hypoxic event from drug use. thiamine 500 mg IM 3 times daily started on 05 26,for 3 days, now on po thiamine daily 06/06 Daughter Ina made contact with RN. I also spoke with her, at this point, her mother's condition is sub acute. No need for interventions. nIa is aware her mother needs director long term care care. She is willing to assist with this, but neither she, nor her mother have a safe place to live. Qualifiers: Altered mental status type: stupor Qualified Code(s): R40.1 - Stupor (4) Pubic bone fracture: Impression: X-ray hip on 05/25 shows moderately displaced right inferior pubic ramus fracture with extension in the medial acetabular column and suspicion for extension to the pelvic ring. Case was discussed with on-call orthopedist, who reports this is nonoperative. She is full weightbearing as tolerated and will need a walker at discharge. If her mentation improves, we will order PT jesús, currently not able to particpate with PT. She has been seen 1x for PT, no rehab potentential. She is getting to the chair daily with staff assistance (5) Malnutrition: Impression: Severe protein calorie malnutrition given obvious muscle wasting, loss of subcutaneous fat, bedridden. She is eating 100% of meals, with occasional exception. BMI increased from 14.9 to 17.6. This is an improvement. This patient's diagnosis and treatment plan was discussed this AM with attending physician as a part of multi disciplinary rounding meeting. non billable rounding Qualifiers: Malnutrition type: unspecified type Qualified Code(s): E46 - Unspecified protein-calorie malnutrition
--- NOTE | 2025-08-28 12:51 | PROVIDER PROGRESS NOTE ---
Subjective Prog Note Date Prog Note Date: 08/28/25 Subjective Pt reports feeling: No change Current Medications Current Medications Current Medications: Current Medications Generic Name Dose Route Start Last Admin Trade Name Falguni PRN Reason Stop Dose Admin Acetaminophen 650 mg 05/21/25 14:24 08/25/25 07:55 Acetaminophen 325 Mg Tablet PO 650 mg Q4HR PRN Administration Pain 1 to 4, or Fever Apixaban 2.5 mg 05/29/25 21:00 08/28/25 09:17 Apixaban 2.5 Mg Tablet PO 2.5 mg BID WEST Administration Calcium Carbonate/Glycine 500 mg 06/04/25 09:00 08/28/25 09:17 Calcium Carbonate Chew 500 Mg Tablet PO 500 mg DAILY WEST Administration Cetirizine HCl 10 mg 07/06/25 11:37 08/25/25 07:56 Cetirizine 10 Mg Tablet PO 10 mg DAILY PRN Administration Allergy Symptoms Cholecalciferol 25 mcg 06/04/25 09:00 08/28/25 09:17 Cholecalciferol 25 Mcg Tablet PO 25 mcg DAILY WEST Administration Cyclobenzaprine HCl 10 mg 06/18/25 13:19 08/26/25 08:29 Cyclobenzaprine 10 Mg Tablet PO 10 mg TID PRN Administration Spasms Docusate Sodium 250 - 500 mg 07/02/25 10:35 Docusate Sodium 250 Mg Capsule PO DAILY PRN Constipation Polyethylene Glycol 17 gm 07/02/25 10:34 08/20/25 08:49 Polyethylene Glycol 3350 17 Gm Packet PO 17 gm DAILY PRN Administration Constipation Multivit/Folic Acid/Iron 1 tab 05/25/25 08:00 08/28/25 09:17 Vitamin Tablet PO 1 tab DAILYWM WEST Administration Propranolol HCl 10 mg 08/24/25 07:39 08/28/25 09:20 Propranolol 10 Mg Tablet PO 10 mg 0800,1400,2200 WEST Administration Tamsulosin HCl 0.4 mg 08/10/25 09:00 08/28/25 09:17 Tamsulosin 0.4 Mg Capsule PO 0.4 mg DAILY WEST Administration Thiamine HCl 100 mg 05/30/25 09:00 08/28/25 09:17 Thiamine 100 Mg Tablet PO 100 mg DAILY WEST Administration Zinc Oxide 113 gm 06/28/25 12:00 08/27/25 08:22 Cod Liver Oil/Zinc Oxide 113 Gm Tube TOP 1 applic PRN PRN Administration Skin Care Objective Vital Signs/Intake & Output Reviewed Vital Signs: Yes Vital Signs: Vital Signs x48h Temp Pulse Resp BP BP Pulse Ox 08/28/25 11:30 108 H 116/78 08/28/25 09:10 120 H 125/84 08/28/25 08:15 36.6 C 114 H 18 186/117 H 98 Intake & Output: Intake & Output 08/25/25 08/26/25 08/27/25 08/28/25 23:59 23:59 23:59 23:59 Intake Total 1090 / 1090 1050 / 1050 1090 / 1090 720 / 720 Balance 1090 / 1090 1050 / 1050 1090 / 1090 720 / 720 Objective General Appearance: positive No acute distress Eyes Bilateral: positive Normal inspection ENT: positive ENT inspection nml Neck: positive Nml inspection Respiratory: positive No respiratory distress Cardiovascular: positive Regular rate & rhythm Abdomen: positive No distention Skin: positive Color nml, No rash, Dry and Other (hypertrophic overgrown toenails) Extremities: positive Nml appearance and No pedal edema Neurologic/Psychiatric: positive Other (sitting up in bed) Lab Results 08/17/25 13:26 08/17/25 13:26 Other Labs: Lab Results x24hrs 08/17/25 Range/Units 13:26 WBC 8.0 (4.8-10.8) x10^3/uL RBC 4.66 (4.20-5.40) 10^6/uL Hgb 15.3 (12.0-16.0) g/dL Hct 44.5 (37.0-47.0) % MCV 95.5 (81.0-99.0) fL MCH 32.8 H (27.0-31.0) pg MCHC 34.4 (32.0-36.0) g/dL RDW 12.2 (12.0-15.0) % Plt Count 406 (130-450) 10^3/uL MPV 9.8 (7.9-10.8) fL Neut # (Auto) 5.1 (1.5-6.6) 10^3/uL Lymph # (Auto) 1.5 (1.5-3.5) 10^3/uL [place] # (Auto) 1.1 H (0.0-1.0) 10^3/uL Eos # (Auto) 0.3 (0.0-0.7) 10^3/uL Baso # (Auto) 0.0 (0.0-0.1) 10^3/uL Absolute Nucleated RBC 0.00 x10^3/uL Nucleated RBC % 0.0 /100WBC Sodium 140 (135-145) mmol/L Potassium 3.7 (3.5-4.5) mmol/L Chloride 102 (101-111) mmol/L Carbon Dioxide 30 (21-32) mmol/L Anion Gap 8.0 (6-13) BUN 22 H (6-20) mg/dL Creatinine 0.6 (0.6-1.3) mg/dL Estimated GFR (MDRD) 102 (>89) Glucose 143 H (74-104) mg/dL Calcium 9.9 (8.5-10.3) mg/dL Magnesium 2.1 (1.7-2.3) mg/dL Sepsis Event Note (H) Evaluation Current Stage of Sepsis: Ruled out Assessment/Plan Problem List (1) Abnormal vital signs: Impression: 08/18: Workup unremarkable including CBC and BMP. EKG showing sinus tachycardia. I have ordered 2 L LR bolus and encouraged nursing to promote oral intake 08/19: oral intake encouraged. I am going to treat her heart rate and blood pressure with a beta juan antonio, started propranolol 10mg TID this PM, will monitor. Her affect is calm and satisfied, she is not showing outward signs of anxiety. 08/25: stable. Selected Entries 08/24/25 08:45 08/24/25 19:01 08/25/25 08:20 Pulse Rate [Brachial] 119 H 96 114 H Blood Pressure [Right Brachial artery] 130/91 H 129/86 131/82 H (2) Polysubstance abuse: Impression: She has been in the hospital since 05/13/2025 UDS on presentation was positive for opiates, amphetamine, methamphetamine, cocaine She is out of the window for any acute withdrawal. She has not had any acute changes in her mental status for at least a week. 06/13: She is having some overall tenseness and hyperactivity, likely a psychomotor side effect of her polysubstance abuse. I am starting Suboxone 8-2 mg SL daily and will monitor for effect versus toxicity 05/20 7: She did not tolerate her dose of Suboxone very well. She was very lethargic through most of yesterday afternoon and is still only responding to pain. Last night I gave her a dose of Narcan with minimal effect. I gave her a liter of IV fluids and sent her for CT head out of an abundance of caution which showed no acute changes. I have discontinued her Suboxone, and I am keeping her on continuous pulse ox to watch for respiratory depression. I have Narcan ordered as needed. Chest x-ray was performed as she had some desaturation requiring 2 L O2. This showed no acute findings. 06/15: Her mentation is much improved today as the Suboxone is washing out of her system. As we do not stock smaller doses of Suboxone, we will likely not pursue this any further. She is back to her mentation as of a few days ago. Remains medically clear. Today is nonbillable rounding 06/16: No change in condition, no change in plan. (3) Altered mental status: Impression: Altered mentation likely secondary to polysubstance abuse UDS on presentation positive for opiates, amphetamine, methamphetamine, cocaine Patient was held in observation, and repeat CT and MRI were performed. MRI shows diffuse white matter hyperintense signal which may represent edema. Not the typical presentation of press Her altered mentation is not affected by her blood pressure, meaning it is not improved whenever her blood pressure is within normal limits Case discussed with neurology on 05/26, who recommended LP, but stated that this is likely sequela of hypoxic event from drug use. thiamine 500 mg IM 3 times daily started on 05 26,for 3 days, now on po thiamine daily 06/06 Daughter Ina made contact with RN. I also spoke with her, at this point, her mother's condition is sub acute. No need for interventions. 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 She is willing to assist with this, but neither she, nor her mother have a safe place to live. Qualifiers: Altered mental status type: stupor Qualified Code(s): R40.1 - Stupor (4) Pubic bone fracture: Impression: X-ray hip on 05/25 shows moderately displaced right inferior pubic ramus fracture with extension in the medial acetabular column and suspicion for extension to the pelvic ring. Case was discussed with on-call orthopedist, who reports this is nonoperative. She is full weightbearing as tolerated and will need a walker at discharge. If her mentation improves, we will order PT jesús, currently not able to particpate with PT. She has been seen 1x for PT, no rehab potentential. She is getting to the chair daily with staff assistance (5) Malnutrition: Impression: Severe protein calorie malnutrition given obvious muscle wasting, loss of subcutaneous fat, bedridden. She is eating 100% of meals, with occasional exception. BMI increased from 14.9 to 17.6. This is an improvement. This patient's diagnosis and treatment plan was discussed this AM with attending physician as a part of multi disciplinary rounding meeting. non billable rounding Qualifiers: Malnutrition type: unspecified type Qualified Code(s): E46 - Unspecified protein-calorie malnutrition
--- NOTE | 2025-08-29 13:02 | PROVIDER PROGRESS NOTE ---
Subjective Prog Note Date Prog Note Date: 08/29/25 Subjective Pt reports feeling: No change Current Medications Current Medications Current Medications: Current Medications Generic Name Dose Route Start Last Admin Trade Name Falguni PRN Reason Stop Dose Admin Acetaminophen 650 mg 05/21/25 14:24 08/25/25 07:55 Acetaminophen 325 Mg Tablet PO 650 mg Q4HR PRN Administration Pain 1 to 4, or Fever Apixaban 2.5 mg 05/29/25 21:00 08/29/25 09:33 Apixaban 2.5 Mg Tablet PO 2.5 mg BID WEST Administration Calcium Carbonate/Glycine 500 mg 06/04/25 09:00 08/29/25 09:33 Calcium Carbonate Chew 500 Mg Tablet PO 500 mg DAILY WEST Administration Cetirizine HCl 10 mg 07/06/25 11:37 08/25/25 07:56 Cetirizine 10 Mg Tablet PO 10 mg DAILY PRN Administration Allergy Symptoms Cholecalciferol 25 mcg 06/04/25 09:00 08/29/25 09:34 Cholecalciferol 25 Mcg Tablet PO 25 mcg DAILY WEST Administration Cyclobenzaprine HCl 10 mg 06/18/25 13:19 08/26/25 08:29 Cyclobenzaprine 10 Mg Tablet PO 10 mg TID PRN Administration Spasms Docusate Sodium 250 - 500 mg 07/02/25 10:35 Docusate Sodium 250 Mg Capsule PO DAILY PRN Constipation Polyethylene Glycol 17 gm 07/02/25 10:34 08/20/25 08:49 Polyethylene Glycol 3350 17 Gm Packet PO 17 gm DAILY PRN Administration Constipation Multivit/Folic Acid/Iron 1 tab 05/25/25 08:00 08/29/25 09:33 Vitamin Tablet PO 1 tab DAILYWM WEST Administration Propranolol HCl 10 mg 08/24/25 07:39 08/29/25 09:33 Propranolol 10 Mg Tablet PO 10 mg 0800,1400,2200 WEST Administration Tamsulosin HCl 0.4 mg 08/10/25 09:00 08/29/25 09:34 Tamsulosin 0.4 Mg Capsule PO 0.4 mg DAILY WEST Administration Thiamine HCl 100 mg 05/30/25 09:00 08/29/25 09:34 Thiamine 100 Mg Tablet PO 100 mg DAILY WEST Administration Zinc Oxide 113 gm 06/28/25 12:00 08/28/25 13:50 Cod Liver Oil/Zinc Oxide 113 Gm Tube TOP 1 applic PRN PRN Administration Skin Care Objective Vital Signs/Intake & Output Reviewed Vital Signs: Yes Vital Signs: Vital Signs x48h Temp Pulse Resp BP Pulse Ox 08/29/25 07:45 36.6 C 122 H 16 131/91 H 93 Intake & Output: Intake & Output 08/26/25 08/27/25 08/28/25 08/29/25 23:59 23:59 23:59 23:59 Intake Total 1050 / 1050 1090 / 1090 1320 / 1320 240 / 240 Balance 1050 / 1050 1090 / 1090 1320 / 1320 240 / 240 Objective General Appearance: positive No acute distress Eyes Bilateral: positive Normal inspection ENT: positive ENT inspection nml Neck: positive Nml inspection Respiratory: positive No respiratory distress Cardiovascular: positive Regular rate & rhythm Abdomen: positive No distention Skin: positive Color nml, No rash, Dry and Other (hypertrophic overgrown toenails) Extremities: positive Nml appearance and No pedal edema Neurologic/Psychiatric: positive Other (sitting up in bed) Lab Results 08/17/25 13:26 08/17/25 13:26 Other Labs: Lab Results x24hrs 08/17/25 Range/Units 13:26 WBC 8.0 (4.8-10.8) x10^3/uL RBC 4.66 (4.20-5.40) 10^6/uL Hgb 15.3 (12.0-16.0) g/dL Hct 44.5 (37.0-47.0) % MCV 95.5 (81.0-99.0) fL MCH 32.8 H (27.0-31.0) pg MCHC 34.4 (32.0-36.0) g/dL RDW 12.2 (12.0-15.0) % Plt Count 406 (130-450) 10^3/uL MPV 9.8 (7.9-10.8) fL Neut # (Auto) 5.1 (1.5-6.6) 10^3/uL Lymph # (Auto) 1.5 (1.5-3.5) 10^3/uL [place] # (Auto) 1.1 H (0.0-1.0) 10^3/uL Eos # (Auto) 0.3 (0.0-0.7) 10^3/uL Baso # (Auto) 0.0 (0.0-0.1) 10^3/uL Absolute Nucleated RBC 0.00 x10^3/uL Nucleated RBC % 0.0 /100WBC Sodium 140 (135-145) mmol/L Potassium 3.7 (3.5-4.5) mmol/L Chloride 102 (101-111) mmol/L Carbon Dioxide 30 (21-32) mmol/L Anion Gap 8.0 (6-13) BUN 22 H (6-20) mg/dL Creatinine 0.6 (0.6-1.3) mg/dL Estimated GFR (MDRD) 102 (>89) Glucose 143 H (74-104) mg/dL Calcium 9.9 (8.5-10.3) mg/dL Magnesium 2.1 (1.7-2.3) mg/dL Sepsis Event Note (H) Evaluation Current Stage of Sepsis: Ruled out Assessment/Plan Problem List (1) Abnormal vital signs: (2) Polysubstance abuse: (3) Altered mental status: Qualifiers: Altered mental status type: stupor Qualified Code(s): R40.1 - Stupor (4) Pubic bone fracture: (5) Malnutrition: Qualifiers: Malnutrition type: unspecified type Qualified Code(s): E46 - Unspecified protein-calorie malnutrition
--- NOTE | 2025-08-30 11:53 | PROVIDER PROGRESS NOTE ---
Subjective Prog Note Date Prog Note Date: 08/30/25 Subjective Pt reports feeling: No change Current Medications Current Medications Current Medications: Current Medications Generic Name Dose Route Start Last Admin Trade Name Falguni PRN Reason Stop Dose Admin Acetaminophen 650 mg 05/21/25 14:24 08/25/25 07:55 Acetaminophen 325 Mg Tablet PO 650 mg Q4HR PRN Administration Pain 1 to 4, or Fever Apixaban 2.5 mg 05/29/25 21:00 08/30/25 08:38 Apixaban 2.5 Mg Tablet PO 2.5 mg BID WEST Administration Calcium Carbonate/Glycine 500 mg 06/04/25 09:00 08/30/25 08:38 Calcium Carbonate Chew 500 Mg Tablet PO 500 mg DAILY WEST Administration Cetirizine HCl 10 mg 07/06/25 11:37 08/25/25 07:56 Cetirizine 10 Mg Tablet PO 10 mg DAILY PRN Administration Allergy Symptoms Cholecalciferol 25 mcg 06/04/25 09:00 08/30/25 08:38 Cholecalciferol 25 Mcg Tablet PO 25 mcg DAILY WEST Administration Cyclobenzaprine HCl 10 mg 06/18/25 13:19 08/26/25 08:29 Cyclobenzaprine 10 Mg Tablet PO 10 mg TID PRN Administration Spasms Docusate Sodium 250 - 500 mg 07/02/25 10:35 Docusate Sodium 250 Mg Capsule PO DAILY PRN Constipation Polyethylene Glycol 17 gm 07/02/25 10:34 08/20/25 08:49 Polyethylene Glycol 3350 17 Gm Packet PO 17 gm DAILY PRN Administration Constipation Multivit/Folic Acid/Iron 1 tab 05/25/25 08:00 08/30/25 08:38 Vitamin Tablet PO 1 tab DAILYWM WEST Administration Propranolol HCl 10 mg 08/24/25 07:39 08/30/25 08:38 Propranolol 10 Mg Tablet PO 10 mg 0800,1400,2200 WEST Administration Tamsulosin HCl 0.4 mg 08/10/25 09:00 08/30/25 08:38 Tamsulosin 0.4 Mg Capsule PO 0.4 mg DAILY WEST Administration Thiamine HCl 100 mg 05/30/25 09:00 08/30/25 08:38 Thiamine 100 Mg Tablet PO 100 mg DAILY WEST Administration Zinc Oxide 113 gm 06/28/25 12:00 08/30/25 08:39 Cod Liver Oil/Zinc Oxide 113 Gm Tube TOP 1 applic PRN PRN Administration Skin Care Objective Vital Signs/Intake & Output Reviewed Vital Signs: Yes Vital Signs: Vital Signs x48h Temp Pulse Pulse Resp BP Pulse Ox 08/30/25 08:47 36.4 C L 98 20 148/90 H 97 08/30/25 08:40 102 H 142/93 H Intake & Output: Intake & Output 08/27/25 08/28/25 08/29/25 08/30/25 23:59 23:59 23:59 23:59 Intake Total 1090 / 1090 1320 / 1320 780 / 780 730 / 730 Balance 1090 / 1090 1320 / 1320 780 / 780 730 / 730 Weight (kg) 49.5 kg Objective General Appearance: positive No acute distress Eyes Bilateral: positive Normal inspection ENT: positive ENT inspection nml Neck: positive Nml inspection Respiratory: positive No respiratory distress Cardiovascular: positive Regular rate & rhythm Abdomen: positive No distention Skin: positive Color nml, No rash and Dry Extremities: positive Nml appearance and No pedal edema Neurologic/Psychiatric: positive Other (sitting up in bed) Lab Results 08/17/25 13:26 08/17/25 13:26 Other Labs: Lab Results x24hrs 08/17/25 Range/Units 13:26 WBC 8.0 (4.8-10.8) x10^3/uL RBC 4.66 (4.20-5.40) 10^6/uL Hgb 15.3 (12.0-16.0) g/dL Hct 44.5 (37.0-47.0) % MCV 95.5 (81.0-99.0) fL MCH 32.8 H (27.0-31.0) pg MCHC 34.4 (32.0-36.0) g/dL RDW 12.2 (12.0-15.0) % Plt Count 406 (130-450) 10^3/uL MPV 9.8 (7.9-10.8) fL Neut # (Auto) 5.1 (1.5-6.6) 10^3/uL Lymph # (Auto) 1.5 (1.5-3.5) 10^3/uL [place] # (Auto) 1.1 H (0.0-1.0) 10^3/uL Eos # (Auto) 0.3 (0.0-0.7) 10^3/uL Baso # (Auto) 0.0 (0.0-0.1) 10^3/uL Absolute Nucleated RBC 0.00 x10^3/uL Nucleated RBC % 0.0 /100WBC Sodium 140 (135-145) mmol/L Potassium 3.7 (3.5-4.5) mmol/L Chloride 102 (101-111) mmol/L Carbon Dioxide 30 (21-32) mmol/L Anion Gap 8.0 (6-13) BUN 22 H (6-20) mg/dL Creatinine 0.6 (0.6-1.3) mg/dL Estimated GFR (MDRD) 102 (>89) Glucose 143 H (74-104) mg/dL Calcium 9.9 (8.5-10.3) mg/dL Magnesium 2.1 (1.7-2.3) mg/dL Sepsis Event Note (H) Evaluation Current Stage of Sepsis: Ruled out Assessment/Plan Problem List (1) Abnormal vital signs: Impression: 08/18: Workup unremarkable including CBC and BMP. EKG showing sinus tachycardia. I have ordered 2 L LR bolus and encouraged nursing to promote oral intake 08/19: oral intake encouraged. I am going to treat her heart rate and blood pressure with a beta juan antonio, started propranolol 10mg TID this PM, will monitor. Her affect is calm and satisfied, she is not showing outward signs of anxiety. 08/25: stable. Selected Entries 08/24/25 08:45 08/24/25 19:01 08/25/25 08:20 Pulse Rate [Brachial] 119 H 96 114 H Blood Pressure [Right Brachial artery] 130/91 H 129/86 131/82 H (2) Polysubstance abuse: Impression: She has been in the hospital since 05/13/2025 UDS on presentation was positive for opiates, amphetamine, methamphetamine, cocaine She is out of the window for any acute withdrawal. She has not had any acute changes in her mental status for at least a week. 06/13: She is having some overall tenseness and hyperactivity, likely a psychomotor side effect of her polysubstance abuse. I am starting Suboxone 8-2 mg SL daily and will monitor for effect versus toxicity 05/20 7: She did not tolerate her dose of Suboxone very well. She was very lethargic through most of yesterday afternoon and is still only responding to pain. Last night I gave her a dose of Narcan with minimal effect. I gave her a liter of IV fluids and sent her for CT head out of an abundance of caution which showed no acute changes. I have discontinued her Suboxone, and I am keeping her on continuous pulse ox to watch for respiratory depression. I have Narcan ordered as needed. Chest x-ray was performed as she had some desaturation requiring 2 L O2. This showed no acute findings. 06/15: Her mentation is much improved today as the Suboxone is washing out of her system. As we do not stock smaller doses of Suboxone, we will likely not pursue this any further. She is back to her mentation as of a few days ago. Remains medically clear. Today is nonbillable rounding 06/16: No change in condition, no change in plan. (3) Altered mental status: Impression: Altered mentation likely secondary to polysubstance abuse UDS on presentation positive for opiates, amphetamine, methamphetamine, cocaine Patient was held in observation, and repeat CT and MRI were performed. MRI shows diffuse white matter hyperintense signal which may represent edema. Not the typical presentation of press Her altered mentation is not affected by her blood pressure, meaning it is not improved whenever her blood pressure is within normal limits Case discussed with neurology on 05/26, who recommended LP, but stated that this is likely sequela of hypoxic event from drug use. thiamine 500 mg IM 3 times daily started on 05 26,for 3 days, now on po thiamine daily 06/06 Daughter Ina made contact with RN. I also spoke with her, at this point, her mother's condition is sub acute. No need for interventions. 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 She is willing to assist with this, but neither she, nor her mother have a safe place to live. Qualifiers: Altered mental status type: stupor Qualified Code(s): R40.1 - Stupor (4) Pubic bone fracture: Impression: X-ray hip on 05/25 shows moderately displaced right inferior pubic ramus fracture with extension in the medial acetabular column and suspicion for extension to the pelvic ring. Case was discussed with on-call orthopedist, who reports this is nonoperative. She is full weightbearing as tolerated and will need a walker at discharge. If her mentation improves, we will order PT jesús, currently not able to particpate with PT. She has been seen 1x for PT, no rehab potentential. She is getting to the chair daily with staff assistance (5) Malnutrition: Impression: Severe protein calorie malnutrition given obvious muscle wasting, loss of subcutaneous fat, bedridden. She is eating 100% of meals, with occasional exception. BMI increased from 14.9 to 17.6. This is an improvement. This patient's diagnosis and treatment plan was discussed this AM with attending physician as a part of multi disciplinary rounding meeting. non billable rounding Qualifiers: Malnutrition type: unspecified type Qualified Code(s): E46 - Unspecified protein-calorie malnutrition
--- NOTE | 2025-08-31 13:02 | PROVIDER PROGRESS NOTE ---
Subjective Prog Note Date Prog Note Date: 08/31/25 Subjective Pt reports feeling: No change Current Medications Current Medications Current Medications: Current Medications Generic Name Dose Route Start Last Admin Trade Name Falguni PRN Reason Stop Dose Admin Acetaminophen 650 mg 05/21/25 14:24 08/25/25 07:55 Acetaminophen 325 Mg Tablet PO 650 mg Q4HR PRN Administration Pain 1 to 4, or Fever Apixaban 2.5 mg 05/29/25 21:00 08/31/25 08:39 Apixaban 2.5 Mg Tablet PO 2.5 mg BID WEST Administration Calcium Carbonate/Glycine 500 mg 06/04/25 09:00 08/31/25 08:39 Calcium Carbonate Chew 500 Mg Tablet PO 500 mg DAILY WEST Administration Cetirizine HCl 10 mg 07/06/25 11:37 08/25/25 07:56 Cetirizine 10 Mg Tablet PO 10 mg DAILY PRN Administration Allergy Symptoms Cholecalciferol 25 mcg 06/04/25 09:00 08/31/25 08:39 Cholecalciferol 25 Mcg Tablet PO 25 mcg DAILY WEST Administration Cyclobenzaprine HCl 10 mg 06/18/25 13:19 08/26/25 08:29 Cyclobenzaprine 10 Mg Tablet PO 10 mg TID PRN Administration Spasms Docusate Sodium 250 - 500 mg 07/02/25 10:35 Docusate Sodium 250 Mg Capsule PO DAILY PRN Constipation Polyethylene Glycol 17 gm 07/02/25 10:34 08/20/25 08:49 Polyethylene Glycol 3350 17 Gm Packet PO 17 gm DAILY PRN Administration Constipation Multivit/Folic Acid/Iron 1 tab 05/25/25 08:00 08/31/25 08:39 Vitamin Tablet PO 1 tab DAILYWM WEST Administration Propranolol HCl 10 mg 08/24/25 07:39 08/31/25 08:39 Propranolol 10 Mg Tablet PO 10 mg 0800,1400,2200 WEST Administration Tamsulosin HCl 0.4 mg 08/10/25 09:00 08/31/25 08:39 Tamsulosin 0.4 Mg Capsule PO 0.4 mg DAILY WEST Administration Thiamine HCl 100 mg 05/30/25 09:00 08/31/25 08:39 Thiamine 100 Mg Tablet PO 100 mg DAILY WEST Administration Zinc Oxide 113 gm 06/28/25 12:00 08/31/25 04:35 Cod Liver Oil/Zinc Oxide 113 Gm Tube TOP 1 applic PRN PRN Administration Skin Care Objective Vital Signs/Intake & Output Reviewed Vital Signs: Yes Vital Signs: Vital Signs x48h Temp Pulse Resp BP Pulse Ox 08/31/25 07:17 36.6 C 113 H 20 121/80 95 Intake & Output: Intake & Output 08/28/25 08/29/25 08/30/25 08/31/25 23:59 23:59 23:59 23:59 Intake Total 1320 / 1320 780 / 780 1530 / 1530 510 / 510 Output Total 2 / 2 Balance 1320 / 1320 780 / 780 1530 / 1530 508 / 508 Weight (kg) 49.5 kg Objective General Appearance: positive No acute distress Eyes Bilateral: positive Normal inspection ENT: positive ENT inspection nml Neck: positive Nml inspection Respiratory: positive No respiratory distress Cardiovascular: positive Regular rate & rhythm Abdomen: positive No distention Skin: positive Color nml, No rash and Dry Extremities: positive Nml appearance and No pedal edema Neurologic/Psychiatric: positive Other (sitting up in bed) Lab Results 08/17/25 13:26 08/17/25 13:26 Other Labs: Lab Results x24hrs 08/17/25 Range/Units 13:26 WBC 8.0 (4.8-10.8) x10^3/uL RBC 4.66 (4.20-5.40) 10^6/uL Hgb 15.3 (12.0-16.0) g/dL Hct 44.5 (37.0-47.0) % MCV 95.5 (81.0-99.0) fL MCH 32.8 H (27.0-31.0) pg MCHC 34.4 (32.0-36.0) g/dL RDW 12.2 (12.0-15.0) % Plt Count 406 (130-450) 10^3/uL MPV 9.8 (7.9-10.8) fL Neut # (Auto) 5.1 (1.5-6.6) 10^3/uL Lymph # (Auto) 1.5 (1.5-3.5) 10^3/uL [place] # (Auto) 1.1 H (0.0-1.0) 10^3/uL Eos # (Auto) 0.3 (0.0-0.7) 10^3/uL Baso # (Auto) 0.0 (0.0-0.1) 10^3/uL Absolute Nucleated RBC 0.00 x10^3/uL Nucleated RBC % 0.0 /100WBC Sodium 140 (135-145) mmol/L Potassium 3.7 (3.5-4.5) mmol/L Chloride 102 (101-111) mmol/L Carbon Dioxide 30 (21-32) mmol/L Anion Gap 8.0 (6-13) BUN 22 H (6-20) mg/dL Creatinine 0.6 (0.6-1.3) mg/dL Estimated GFR (MDRD) 102 (>89) Glucose 143 H (74-104) mg/dL Calcium 9.9 (8.5-10.3) mg/dL Magnesium 2.1 (1.7-2.3) mg/dL Sepsis Event Note (H) Evaluation Current Stage of Sepsis: Ruled out Assessment/Plan Problem List (1) Abnormal vital signs: Impression: 08/18: Workup unremarkable including CBC and BMP. EKG showing sinus tachycardia. I have ordered 2 L LR bolus and encouraged nursing to promote oral intake 08/19: oral intake encouraged. I am going to treat her heart rate and blood pressure with a beta juan antonio, started propranolol 10mg TID this PM, will monitor. Her affect is calm and satisfied, she is not showing outward signs of anxiety. 08/25: stable. (2) Polysubstance abuse: Impression: She has been in the hospital since 05/13/2025 UDS on presentation was positive for opiates, amphetamine, methamphetamine, cocaine She is out of the window for any acute withdrawal. She has not had any acute changes in her mental status for at least a week. 06/13: She is having some overall tenseness and hyperactivity, likely a psychomotor side effect of her polysubstance abuse. I am starting Suboxone 8-2 mg SL daily and will monitor for effect versus toxicity 05/20 7: She did not tolerate her dose of Suboxone very well. She was very lethargic through most of yesterday afternoon and is still only responding to pain. Last night I gave her a dose of Narcan with minimal effect. I gave her a liter of IV fluids and sent her for CT head out of an abundance of caution which showed no acute changes. I have discontinued her Suboxone, and I am keeping her on continuous pulse ox to watch for respiratory depression. I have Narcan ordered as needed. Chest x-ray was performed as she had some desaturation requiring 2 L O2. This showed no acute findings. 06/15: Her mentation is much improved today as the Suboxone is washing out of her system. As we do not stock smaller doses of Suboxone, we will likely not pursue this any further. She is back to her mentation as of a few days ago. Remains medically clear. Today is nonbillable rounding 06/16: No change in condition, no change in plan. (3) Altered mental status: Impression: Altered mentation likely secondary to polysubstance abuse UDS on presentation positive for opiates, amphetamine, methamphetamine, cocaine Patient was held in observation, and repeat CT and MRI were performed. MRI shows diffuse white matter hyperintense signal which may represent edema. Not the typical presentation of press Her altered mentation is not affected by her blood pressure, meaning it is not improved whenever her blood pressure is within normal limits Case discussed with neurology on 05/26, who recommended LP, but stated that this is likely sequela of hypoxic event from drug use. thiamine 500 mg IM 3 times daily started on 05 26,for 3 days, now on po thiamine daily 06/06 Daughter Ina made contact with RN. I also spoke with her, at this point, her mother's condition is sub acute. No need for interventions. 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 She is willing to assist with this, but neither she, nor her mother have a safe place to live. Qualifiers: Altered mental status type: stupor Qualified Code(s): R40.1 - Stupor (4) Pubic bone fracture: Impression: X-ray hip on 05/25 shows moderately displaced right inferior pubic ramus fracture with extension in the medial acetabular column and suspicion for extension to the pelvic ring. Case was discussed with on-call orthopedist, who reports this is nonoperative. She is full weightbearing as tolerated and will need a walker at discharge. If her mentation improves, we will order PT eval, currently not able to particpate with PT. She has been seen 1x for PT, no rehab potentential. She is getting to the chair daily with staff assistance (5) Malnutrition: Impression: Severe protein calorie malnutrition given obvious muscle wasting, loss of subcutaneous fat, bedridden. She is eating 100% of meals, with occasional exception. BMI increased from 14.9 to 17.6. This is an improvement. This patient's diagnosis and treatment plan was discussed this AM with attending physician as a part of multi disciplinary rounding meeting. non billable rounding Qualifiers: Malnutrition type: unspecified type Qualified Code(s): E46 - Unspecified protein-calorie malnutrition
[2025-08-31] MEDS: PROPRANOLOL 10 MG TABLET PO SCH (21:52)
--- NOTE | 2025-09-01 11:30 | PROVIDER PROGRESS NOTE ---
Subjective Prog Note Date Prog Note Date: 09/01/25 Subjective Pt reports feeling: No change Current Medications Current Medications Current Medications: Current Medications Generic Name Dose Route Start Last Admin Trade Name Falguni PRN Reason Stop Dose Admin Acetaminophen 650 mg 05/21/25 14:24 09/01/25 03:01 Acetaminophen 325 Mg Tablet PO 650 mg Q4HR PRN Administration Pain 1 to 4, or Fever Apixaban 2.5 mg 05/29/25 21:00 09/01/25 09:18 Apixaban 2.5 Mg Tablet PO 2.5 mg BID WEST Administration Calcium Carbonate/Glycine 500 mg 06/04/25 09:00 09/01/25 09:19 Calcium Carbonate Chew 500 Mg Tablet PO 500 mg DAILY WEST Administration Cetirizine HCl 10 mg 07/06/25 11:37 08/25/25 07:56 Cetirizine 10 Mg Tablet PO 10 mg DAILY PRN Administration Allergy Symptoms Cholecalciferol 25 mcg 06/04/25 09:00 09/01/25 09:18 Cholecalciferol 25 Mcg Tablet PO 25 mcg DAILY WEST Administration Cyclobenzaprine HCl 10 mg 06/18/25 13:19 09/01/25 06:00 Cyclobenzaprine 10 Mg Tablet PO 10 mg TID PRN Administration Spasms Docusate Sodium 250 - 500 mg 07/02/25 10:35 Docusate Sodium 250 Mg Capsule PO DAILY PRN Constipation Polyethylene Glycol 17 gm 07/02/25 10:34 08/20/25 08:49 Polyethylene Glycol 3350 17 Gm Packet PO 17 gm DAILY PRN Administration Constipation Multivit/Folic Acid/Iron 1 tab 05/25/25 08:00 09/01/25 09:19 Vitamin Tablet PO 1 tab DAILYWM WEST Administration Propranolol HCl 5 mg 08/31/25 22:00 09/01/25 09:23 Propranolol 10 Mg Tablet PO 5 mg 0800,1400,2200 WEST Administration Tamsulosin HCl 0.4 mg 08/10/25 09:00 09/01/25 09:18 Tamsulosin 0.4 Mg Capsule PO 0.4 mg DAILY WEST Administration Thiamine HCl 100 mg 05/30/25 09:00 09/01/25 09:18 Thiamine 100 Mg Tablet PO 100 mg DAILY WEST Administration Zinc Oxide 113 gm 06/28/25 12:00 09/01/25 03:00 Cod Liver Oil/Zinc Oxide 113 Gm Tube TOP 1 applic PRN PRN Administration Skin Care Objective Vital Signs/Intake & Output Reviewed Vital Signs: Yes Vital Signs: Vital Signs x48h Temp Pulse Resp BP Pulse Ox 09/01/25 07:47 36.5 C 120 H 18 133/86 H 96 Intake & Output: Intake & Output 08/29/25 08/30/25 08/31/25 09/01/25 23:59 23:59 23:59 23:59 Intake Total 780 / 780 1530 / 1530 1287 / 1287 240 / 240 Output Total 2 / Balance 780 / 780 1530 / 1530 1285 / 1285 240 / 240 Weight (kg) 49.5 kg Objective General Appearance: positive No acute distress Eyes Bilateral: positive Normal inspection ENT: positive ENT inspection nml Neck: positive Nml inspection Respiratory: positive No respiratory distress Cardiovascular: positive Regular rate & rhythm Abdomen: positive No distention Skin: positive Color nml, No rash and Dry Extremities: positive Nml appearance and No pedal edema Neurologic/Psychiatric: positive Other (sitting up in bed) Lab Results 08/17/25 13:26 08/17/25 13:26 Other Labs: Lab Results x24hrs 08/17/25 Range/Units 13:26 WBC 8.0 (4.8-10.8) x10^3/uL RBC 4.66 (4.20-5.40) 10^6/uL Hgb 15.3 (12.0-16.0) g/dL Hct 44.5 (37.0-47.0) % MCV 95.5 (81.0-99.0) fL MCH 32.8 H (27.0-31.0) pg MCHC 34.4 (32.0-36.0) g/dL RDW 12.2 (12.0-15.0) % Plt Count 406 (130-450) 10^3/uL MPV 9.8 (7.9-10.8) fL Neut # (Auto) 5.1 (1.5-6.6) 10^3/uL Lymph # (Auto) 1.5 (1.5-3.5) 10^3/uL [place] # (Auto) 1.1 H (0.0-1.0) 10^3/uL Eos # (Auto) 0.3 (0.0-0.7) 10^3/uL Baso # (Auto) 0.0 (0.0-0.1) 10^3/uL Absolute Nucleated RBC 0.00 x10^3/uL Nucleated RBC % 0.0 /100WBC Sodium 140 (135-145) mmol/L Potassium 3.7 (3.5-4.5) mmol/L Chloride 102 (101-111) mmol/L Carbon Dioxide 30 (21-32) mmol/L Anion Gap 8.0 (6-13) BUN 22 H (6-20) mg/dL Creatinine 0.6 (0.6-1.3) mg/dL Estimated GFR (MDRD) 102 (>89) Glucose 143 H (74-104) mg/dL Calcium 9.9 (8.5-10.3) mg/dL Magnesium 2.1 (1.7-2.3) mg/dL Sepsis Event Note (H) Evaluation Current Stage of Sepsis: Ruled out Assessment/Plan Problem List (1) Abnormal vital signs: Impression: 08/18: Workup unremarkable including CBC and BMP. EKG showing sinus tachycardia. I have ordered 2 L LR bolus and encouraged nursing to promote oral intake 08/19: oral intake encouraged. I am going to treat her heart rate and blood pressure with a beta juan antonio, started propranolol 10mg TID this PM, will monitor. Her affect is calm and satisfied, she is not showing outward signs of anxiety. 08/25: stable. (2) Polysubstance abuse: Impression: She has been in the hospital since 05/13/2025 UDS on presentation was positive for opiates, amphetamine, methamphetamine, cocaine She is out of the window for any acute withdrawal. She has not had any acute changes in her mental status for at least a week. 06/13: She is having some overall tenseness and hyperactivity, likely a psychomotor side effect of her polysubstance abuse. I am starting Suboxone 8-2 mg SL daily and will monitor for effect versus toxicity 05/20 7: She did not tolerate her dose of Suboxone very well. She was very lethargic through most of yesterday afternoon and is still only responding to pain. Last night I gave her a dose of Narcan with minimal effect. I gave her a liter of IV fluids and sent her for CT head out of an abundance of caution which showed no acute changes. I have discontinued her Suboxone, and I am keeping her on continuous pulse ox to watch for respiratory depression. I have Narcan ordered as needed. Chest x-ray was performed as she had some desaturation requiring 2 L O2. This showed no acute findings. 06/15: Her mentation is much improved today as the Suboxone is washing out of her system. As we do not stock smaller doses of Suboxone, we will likely not pursue this any further. She is back to her mentation as of a few days ago. Remains medically clear. Today is nonbillable rounding 06/16: No change in condition, no change in plan. (3) Altered mental status: Impression: Altered mentation likely secondary to polysubstance abuse UDS on presentation positive for opiates, amphetamine, methamphetamine, cocaine Patient was held in observation, and repeat CT and MRI were performed. MRI shows diffuse white matter hyperintense signal which may represent edema. Not the typical presentation of press Her altered mentation is not affected by her blood pressure, meaning it is not improved whenever her blood pressure is within normal limits Case discussed with neurology on 05/26, who recommended LP, but stated that this is likely sequela of hypoxic event from drug use. thiamine 500 mg IM 3 times daily started on 05 26,for 3 days, now on po thiamine daily 06/06 Daughter Ina made contact with RN. I also spoke with her, at this point, her mother's condition is sub acute. No need for interventions. 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 She is willing to assist with this, but neither she, nor her mother have a safe place to live. Qualifiers: Altered mental status type: stupor Qualified Code(s): R40.1 - Stupor (4) Pubic bone fracture: Impression: X-ray hip on 05/25 shows moderately displaced right inferior pubic ramus fracture with extension in the medial acetabular column and suspicion for extension to the pelvic ring. Case was discussed with on-call orthopedist, who reports this is nonoperative. She is full weightbearing as tolerated and will need a walker at discharge. If her mentation improves, we will order PT eval, currently not able to particpate with PT. She has been seen 1x for PT, no rehab potentential. She is getting to the chair daily with staff assistance (5) Malnutrition: Impression: Severe protein calorie malnutrition given obvious muscle wasting, loss of subcutaneous fat, bedridden. She is eating 100% of meals, with occasional exception. BMI increased from 14.9 to 17.6. This is an improvement. This patient's diagnosis and treatment plan was discussed this AM with attending physician as a part of multi disciplinary rounding meeting. non billable rounding Qualifiers: Malnutrition type: unspecified type Qualified Code(s): E46 - Unspecified protein-calorie malnutrition
--- NOTE | 2025-09-02 17:00 | PROVIDER PROGRESS NOTE ---
Subjective Prog Note Date Prog Note Date: 09/02/25 Subjective Subjective: no change. resting in bed. smiles at me Current Medications Current Medications Current Medications: Current Medications Generic Name Dose Route Start Last Admin Trade Name Falguni PRN Reason Stop Dose Admin Acetaminophen 650 mg 05/21/25 14:24 09/01/25 22:05 Acetaminophen 325 Mg Tablet PO 650 mg Q4HR PRN Administration Pain 1 to 4, or Fever Apixaban 2.5 mg 05/29/25 21:00 09/02/25 08:15 Apixaban 2.5 Mg Tablet PO 2.5 mg BID WEST Administration Calcium Carbonate/Glycine 500 mg 06/04/25 09:00 09/02/25 08:15 Calcium Carbonate Chew 500 Mg Tablet PO 500 mg DAILY WEST Administration Cetirizine HCl 10 mg 07/06/25 11:37 08/25/25 07:56 Cetirizine 10 Mg Tablet PO 10 mg DAILY PRN Administration Allergy Symptoms Cholecalciferol 25 mcg 06/04/25 09:00 09/02/25 08:15 Cholecalciferol 25 Mcg Tablet PO 25 mcg DAILY WEST Administration Cyclobenzaprine HCl 10 mg 06/18/25 13:19 09/01/25 22:05 Cyclobenzaprine 10 Mg Tablet PO 10 mg TID PRN Administration Spasms Docusate Sodium 250 - 500 mg 07/02/25 10:35 Docusate Sodium 250 Mg Capsule PO DAILY PRN Constipation Polyethylene Glycol 17 gm 07/02/25 10:34 08/20/25 08:49 Polyethylene Glycol 3350 17 Gm Packet PO 17 gm DAILY PRN Administration Constipation Multivit/Folic Acid/Iron 1 tab 05/25/25 08:00 09/02/25 08:15 Vitamin Tablet PO 1 tab DAILYWM WEST Administration Propranolol HCl 5 mg 08/31/25 22:00 09/02/25 15:28 Propranolol 10 Mg Tablet PO Not Given 0800,1400,2200 [facility] Tamsulosin HCl 0.4 mg 08/10/25 09:00 09/02/25 08:15 Tamsulosin 0.4 Mg Capsule PO 0.4 mg DAILY WEST Administration Thiamine HCl 100 mg 05/30/25 09:00 09/02/25 08:15 Thiamine 100 Mg Tablet PO 100 mg DAILY WEST Administration Zinc Oxide 113 gm 06/28/25 12:00 09/02/25 08:15 Cod Liver Oil/Zinc Oxide 113 Gm Tube TOP 1 applic PRN PRN Administration Skin Care Objective Vital Signs/Intake & Output Reviewed Vital Signs: Yes Vital Signs: Vital Signs x48h Temp Pulse Resp BP Pulse Ox 09/01/25 07:47 36.5 C 120 H 18 133/86 H 96 Intake & Output: Intake & Output 08/30/25 08/31/25 09/01/25 09/02/25 23:59 23:59 23:59 23:59 Intake Total 1530 / 1530 1287 / 1287 1200 / 1200 994 / 994 Output Total 2 / 2 Balance 1530 / 1530 1285 / 1285 1200 / 1200 994 / 994 Objective General Appearance: positive No acute distress Eyes Bilateral: positive Normal inspection ENT: positive ENT inspection nml Neck: positive Nml inspection Respiratory: positive No respiratory distress Cardiovascular: positive Regular rate & rhythm Abdomen: positive No distention Skin: positive Color nml, No rash and Dry Extremities: positive Nml appearance and No pedal edema Neurologic/Psychiatric: positive Other (sitting up in bed) Lab Results 08/17/25 13:26 08/17/25 13:26 Other Labs: Lab Results x24hrs 08/17/25 Range/Units 13:26 WBC 8.0 (4.8-10.8) x10^3/uL RBC 4.66 (4.20-5.40) 10^6/uL Hgb 15.3 (12.0-16.0) g/dL Hct 44.5 (37.0-47.0) % MCV 95.5 (81.0-99.0) fL MCH 32.8 H (27.0-31.0) pg MCHC 34.4 (32.0-36.0) g/dL RDW 12.2 (12.0-15.0) % Plt Count 406 (130-450) 10^3/uL MPV 9.8 (7.9-10.8) fL Neut # (Auto) 5.1 (1.5-6.6) 10^3/uL Lymph # (Auto) 1.5 (1.5-3.5) 10^3/uL [place] # (Auto) 1.1 H (0.0-1.0) 10^3/uL Eos # (Auto) 0.3 (0.0-0.7) 10^3/uL Baso # (Auto) 0.0 (0.0-0.1) 10^3/uL Absolute Nucleated RBC 0.00 x10^3/uL Nucleated RBC % 0.0 /100WBC Sodium 140 (135-145) mmol/L Potassium 3.7 (3.5-4.5) mmol/L Chloride 102 (101-111) mmol/L Carbon Dioxide 30 (21-32) mmol/L Anion Gap 8.0 (6-13) BUN 22 H (6-20) mg/dL Creatinine 0.6 (0.6-1.3) mg/dL Estimated GFR (MDRD) 102 (>89) Glucose 143 H (74-104) mg/dL Calcium 9.9 (8.5-10.3) mg/dL Magnesium 2.1 (1.7-2.3) mg/dL Sepsis Event Note (H) Evaluation Current Stage of Sepsis: Ruled out Assessment/Plan Problem List (1) Abnormal vital signs: Impression: Heart rate has been labile. In the last 2 days it was ranged from 120 at its highest to 59 at its lowest this morning. She is on the propranolol 10 mg 3 times daily. I do not have any indication that she is symptomatic from her bradycardia. (2) Polysubstance abuse: Impression: She has been in the hospital since 05/13/2025 UDS on presentation was positive for opiates, amphetamine, methamphetamine, cocaine She is out of the window for any acute withdrawal. She has not had any acute changes in her mental status for at least a week. (3) Altered mental status: Impression: Altered mentation likely secondary to polysubstance abuse UDS on presentation positive for opiates, amphetamine, methamphetamine, cocaine Patient was held in observation, and repeat CT and MRI were performed. MRI shows diffuse white matter hyperintense signal which may represent edema. Not the typical presentation of press Her altered mentation is not affected by her blood pressure, meaning it is not improved whenever her blood pressure is within normal limits Case discussed with neurology on 05/26, who recommended LP, but stated that this is likely sequela of hypoxic event from drug use. thiamine 500 mg IM 3 times daily started on 05 26,for 3 days, now on po thiamine daily 06/06 Daughter Ina made contact with RN. I also spoke with her, at this point, her mother's condition is sub acute. No need for interventions. 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 She is willing to assist with this, but neither she, nor her mother have a safe place to live. Qualifiers: Altered mental status type: stupor Qualified Code(s): R40.1 - Stupor (4) Pubic bone fracture: Impression: X-ray hip on 05/25 shows moderately displaced right inferior pubic ramus fracture with extension in the medial acetabular column and suspicion for extension to the pelvic ring. Case was discussed with on-call orthopedist, who reports this is nonoperative. She is full weightbearing as tolerated and will need a walker at discharge. If her mentation improves, we will order PT jesús, currently not able to particpate with PT. She has been seen 1x for PT, no rehab potentential. She is getting to the chair daily with staff assistance (5) Malnutrition: Impression: Severe protein calorie malnutrition given obvious muscle wasting, loss of subcutaneous fat, bedridden. She is eating 100% of meals, with occasional exception. BMI increased from 14.9 to 17.6. This is an improvement. This patient's diagnosis and treatment plan was discussed this AM with attending physician as a part of multi disciplinary rounding meeting. non billable rounding Qualifiers: Malnutrition type: unspecified type Qualified Code(s): E46 - Unspecified protein-calorie malnutrition
--- NOTE | 2025-09-03 15:17 | PROVIDER PROGRESS NOTE ---
Subjective Prog Note Date Prog Note Date: 09/03/25 Subjective Subjective: She is sitting in bed getting hygiene by MARKETING DATABASE CONSULTANT. she is agreeable to nail trimming. Helper/Driver came on 09/01 to trim toenails. Fingernails need to be done. Current Medications Current Medications Current Medications: Current Medications Generic Name Dose Route Start Last Admin Trade Name Freq PRN Reason Stop Dose Admin Acetaminophen 650 mg 05/21/25 14:24 09/03/25 08:46 Acetaminophen 325 Mg Tablet PO 650 mg Q4HR PRN Administration Pain 1 to 4, or Fever Apixaban 2.5 mg 05/29/25 21:00 09/03/25 08:46 Apixaban 2.5 Mg Tablet PO 2.5 mg BID WEST Administration Cetirizine HCl 10 mg 07/06/25 11:37 08/25/25 07:56 Cetirizine 10 Mg Tablet PO 10 mg DAILY PRN Administration Allergy Symptoms Cyclobenzaprine HCl 10 mg 06/18/25 13:19 09/03/25 02:03 Cyclobenzaprine 10 Mg Tablet PO 10 mg TID PRN Administration Spasms Docusate Sodium 250 - 500 mg 07/02/25 10:35 Docusate Sodium 250 Mg Capsule PO DAILY PRN Constipation Polyethylene Glycol 17 gm 07/02/25 10:34 09/03/25 08:47 Polyethylene Glycol 3350 17 Gm Packet PO 17 gm DAILY PRN Administration Constipation Multivit/Folic Acid/Iron 1 tab 05/25/25 08:00 09/03/25 08:46 Vitamin Tablet PO 1 tab DAILYWM WEST Administration Propranolol HCl 5 mg 08/31/25 22:00 09/03/25 14:40 Propranolol 10 Mg Tablet PO 5 mg 0800,1400,2200 WEST Administration Tamsulosin HCl 0.4 mg 08/10/25 09:00 09/03/25 08:46 Tamsulosin 0.4 Mg Capsule PO 0.4 mg DAILY WEST Administration Zinc Oxide 113 gm 06/28/25 12:00 09/03/25 02:14 Cod Liver Oil/Zinc Oxide 113 Gm Tube TOP 1 applic PRN PRN Administration Skin Care Objective Vital Signs/Intake & Output Reviewed Vital Signs: Yes Vital Signs: Vital Signs x48h Temp Pulse Resp BP Pulse Ox 09/03/25 09:00 36.5 C 101 H 18 133/97 H 96 Intake & Output: Intake & Output 08/31/25 09/01/25 09/02/25 09/03/25 23:59 23:59 23:59 23:59 Intake Total 1287 / 1287 1200 / 1200 1474 / 1474 1074 / 1074 Output Total Balance 1285 / 1285 1200 / 1200 1474 / 1474 1074 / 1074 Objective General Appearance: positive No acute distress Eyes Bilateral: positive Normal inspection ENT: positive ENT inspection nml Neck: positive Nml inspection Respiratory: positive No respiratory distress Cardiovascular: positive Regular rate & rhythm Abdomen: positive No distention Skin: positive Color nml, No rash and Dry Extremities: positive Nml appearance and No pedal edema Neurologic/Psychiatric: positive Other (sitting up in bed) Lab Results 08/17/25 13:26 08/17/25 13:26 Sepsis Event Note (H) Evaluation Current Stage of Sepsis: Ruled out Assessment/Plan Problem List (1) Abnormal vital signs: Impression: Heart rate has been labile. . She is on the propranolol 10 mg 3 times daily. I do not have any indication that she is symptomatic from her bradycardia. Lowest HR 59 today. (2) Polysubstance abuse: Impression: She has been in the hospital since 05/13/2025 UDS on presentation was positive for opiates, amphetamine, methamphetamine, cocaine She is out of the window for any acute withdrawal. She has not had any acute changes in her mental status for at least a week. (3) Altered mental status: Impression: Altered mentation likely secondary to polysubstance abuse UDS on presentation positive for opiates, amphetamine, methamphetamine, cocaine Patient was held in observation, and repeat CT and MRI were performed. MRI shows diffuse white matter hyperintense signal which may represent edema. Not the typical presentation of press Her altered mentation is not affected by her blood pressure, meaning it is not improved whenever her blood pressure is within normal limits Case discussed with neurology on 05/26, who recommended LP, but stated that this is likely sequela of hypoxic event from drug use. thiamine 500 mg IM 3 times daily started on 05 26,for 3 days, now on po thiamine daily 06/06 Daughter Ina made contact with RN. I also spoke with her, at this point, her mother's condition is sub acute. No need for interventions. Ina is aware her mother needs exterminator helper care. She is willing to assist with this, but neither she, nor her mother have a safe place to live. Qualifiers: Altered mental status type: stupor Qualified Code(s): R40.1 - Stupor (4) Pubic bone fracture: Impression: X-ray hip on 05/25 shows moderately displaced right inferior pubic ramus fracture with extension in the medial acetabular column and suspicion for extension to the pelvic ring. Case was discussed with on-call orthopedist, who reports this is nonoperative. She is full weightbearing as tolerated and will need a walker at discharge. If her mentation improves, we will order PT eval, currently not able to particpate with PT. She has been seen 1x for PT, no rehab potentential. She is getting to the chair daily with staff assistance (5) Malnutrition: Impression: Severe protein calorie malnutrition given obvious muscle wasting, loss of subcutaneous fat, bedridden. She is eating less these days. BMI increased from 14.9 to 17.6. This is an improvement. Qualifiers: Malnutrition type: unspecified type Qualified Code(s): E46 - Unspecified protein-calorie malnutrition (6) Dystrophic nail: Impression: trimmed fingernails today. it was difficult to find device strong enough to do so, but ultimately was able to debride all 10 fingernails with wire trimmers, and filed with radha board. I did this myself as RNs not comfortable with the degree of force needed to cut her nails. She tolerated this well and seemed curious about what I was doing, and not uncomfortable. This patient's diagnosis and treatment plan was discussed this AM with attending physician as a part of multi disciplinary rounding meeting. non billable rounding
[2025-09-04] MEDS ORDERED: PRENATAL VITAMIN TABLET PO SCH (08:00)
--- NOTE | 2025-09-04 16:40 | PROVIDER PROGRESS NOTE ---
Subjective Prog Note Date Prog Note Date: 09/04/25 Subjective Subjective: Sitting up in the chair at bedside today. GINETTE was able to brush and braid her hair. She is happy about this. Current Medications Current Medications Current Medications: Current Medications Generic Name Dose Route Start Last Admin Trade Name Falguni PRN Reason Stop Dose Admin Acetaminophen 650 mg 05/21/25 14:24 09/03/25 08:46 Acetaminophen 325 Mg Tablet PO 650 mg Q4HR PRN Administration Pain 1 to 4, or Fever Apixaban 2.5 mg 05/29/25 21:00 09/04/25 08:21 Apixaban 2.5 Mg Tablet PO 2.5 mg BID WEST Administration Cyclobenzaprine HCl 10 mg 06/18/25 13:19 09/04/25 08:22 Cyclobenzaprine 10 Mg Tablet PO 10 mg TID PRN Administration Spasms Docusate Sodium 250 - 500 mg 07/02/25 10:35 Docusate Sodium 250 Mg Capsule PO DAILY PRN Constipation Polyethylene Glycol 17 gm 07/02/25 10:34 09/04/25 08:22 Polyethylene Glycol 3350 17 Gm Packet PO 17 gm DAILY PRN Administration Constipation Multivit/Folic Acid/Iron 1 tab 05/25/25 08:00 09/04/25 08:21 Vitamin Tablet PO 1 tab DAILYWM WEST Administration Propranolol HCl 5 mg 08/31/25 22:00 09/04/25 13:46 Propranolol 10 Mg Tablet PO 5 mg 0800,1400,2200 WEST Administration Tamsulosin HCl 0.4 mg 08/10/25 09:00 09/04/25 08:21 Tamsulosin 0.4 Mg Capsule PO 0.4 mg DAILY WEST Administration Zinc Oxide 113 gm 06/28/25 12:00 09/03/25 02:14 Cod Liver Oil/Zinc Oxide 113 Gm Tube TOP 1 applic PRN PRN Administration Skin Care Objective Vital Signs/Intake & Output Reviewed Vital Signs: Yes Vital Signs: Vital Signs x48h Temp Pulse Resp BP Pulse Ox 09/04/25 08:51 36.6 C 107 H 18 130/92 H 93 Intake & Output: Intake & Output 09/01/25 09/02/25 09/03/25 09/04/25 23:59 23:59 23:59 23:59 Intake Total 1200 / 1200 1474 / 1474 1654 / 1654 340 / 340 Balance 1200 / 1200 1474 / 1474 1654 / 1654 340 / 340 Objective General Appearance: positive No acute distress Eyes Bilateral: positive Normal inspection ENT: positive ENT inspection nml Neck: positive Nml inspection Respiratory: positive No respiratory distress Cardiovascular: positive Regular rate & rhythm Abdomen: positive No distention Skin: positive Color nml, No rash and Dry Extremities: positive Nml appearance and No pedal edema Neurologic/Psychiatric: positive Other (Sitting in recliner at bedside) Lab Results 08/17/25 13:26 08/17/25 13:26 Sepsis Event Note (H) Evaluation Current Stage of Sepsis: Ruled out Assessment/Plan Problem List (1) Abnormal vital signs: Impression: Overall trend in heart rate is towards tachycardia. She is normotensive to slightly hypertensive. Continue propranolol 10 mg 3 times daily. (2) Polysubstance abuse: Impression: She has been in the hospital since 05/13/2025 UDS on presentation was positive for opiates, amphetamine, methamphetamine, cocaine She is out of the window for any acute withdrawal. She has not had any acute changes in her mental status for at least a week. (3) Altered mental status: Impression: Altered mentation likely secondary to polysubstance abuse UDS on presentation positive for opiates, amphetamine, methamphetamine, cocaine Patient was held in observation, and repeat CT and MRI were performed. MRI shows diffuse white matter hyperintense signal which may represent edema. Not the typical presentation of press Her altered mentation is not affected by her blood pressure, meaning it is not improved whenever her blood pressure is within normal limits Case discussed with neurology on 05/26, who recommended LP, but stated that this is likely sequela of hypoxic event from drug use. thiamine 500 mg IM 3 times daily started on 05 26,for 3 days, now on po thiamine daily 06/06 Daughter Ina made contact with RN. I also spoke with her, at this point, her mother's condition is sub acute. No need for interventions. 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 She is willing to assist with this, but neither she, nor her mother have a safe place to live. Qualifiers: Altered mental status type: stupor Qualified Code(s): R40.1 - Stupor (4) Pubic bone fracture: Impression: X-ray hip on 05/25 shows moderately displaced right inferior pubic ramus fracture with extension in the medial acetabular column and suspicion for extension to the pelvic ring. Case was discussed with on-call orthopedist, who reports this is nonoperative. She is full weightbearing as tolerated and will need a walker at discharge. If her mentation improves, we will order PT jesús, currently not able to particpate with PT. She has been seen 1x for PT, no rehab potentential. She is getting to the chair daily with staff assistance (5) Malnutrition: Impression: Severe protein calorie malnutrition given obvious muscle wasting, loss of subcutaneous fat, bedridden. She is eating less these days. BMI increased from 14.9 to 17.6. This is an improvement. This patient's diagnosis and treatment plan was discussed this AM with attending physician as a part of multi disciplinary rounding meeting. non billable rounding Qualifiers: Malnutrition type: unspecified type Qualified Code(s): E46 - Unspecified protein-calorie malnutrition
--- NOTE | 2025-09-05 15:41 | PROVIDER PROGRESS NOTE ---
Subjective Prog Note Date Prog Note Date: 09/05/25 Subjective Subjective: watching TV in bed this afternoon. Current Medications Current Medications Current Medications: Current Medications Generic Name Dose Route Start Last Admin Trade Name Falguni PRN Reason Stop Dose Admin Acetaminophen 650 mg 05/21/25 14:24 09/05/25 08:33 Acetaminophen 325 Mg Tablet PO 650 mg Q4HR PRN Administration Pain 1 to 4, or Fever Apixaban 2.5 mg 05/29/25 21:00 09/05/25 08:33 Apixaban 2.5 Mg Tablet PO 2.5 mg BID WEST Administration Cyclobenzaprine HCl 10 mg 06/18/25 13:19 09/04/25 21:56 Cyclobenzaprine 10 Mg Tablet PO 10 mg TID PRN Administration Spasms Docusate Sodium 250 - 500 mg 07/02/25 10:35 Docusate Sodium 250 Mg Capsule PO DAILY PRN Constipation Polyethylene Glycol 17 gm 07/02/25 10:34 09/04/25 08:22 Polyethylene Glycol 3350 17 Gm Packet PO 17 gm DAILY PRN Administration Constipation Multivit/Folic Acid/Iron 1 tab 05/25/25 08:00 09/05/25 08:33 Vitamin Tablet PO 1 tab DAILYWM WEST Administration Propranolol HCl 5 mg 08/31/25 22:00 09/05/25 08:33 Propranolol 10 Mg Tablet PO 5 mg 0800,1400,2200 WEST Administration Tamsulosin HCl 0.4 mg 08/10/25 09:00 09/05/25 08:33 Tamsulosin 0.4 Mg Capsule PO 0.4 mg DAILY WEST Administration Zinc Oxide 113 gm 06/28/25 12:00 09/05/25 03:14 Cod Liver Oil/Zinc Oxide 113 Gm Tube TOP 1 applic PRN PRN Administration Skin Care Objective Vital Signs/Intake & Output Reviewed Vital Signs: Yes Vital Signs: Vital Signs x48h Temp Pulse Resp BP Pulse Ox 09/05/25 07:45 36.4 C L 124 H 20 136/86 H 93 Intake & Output: Intake & Output 09/02/25 09/03/25 09/04/25 09/05/25 23:59 23:59 23:59 23:59 Intake Total 1474 / 1474 1654 / 1654 760 / 760 650 / 650 Balance 1474 / 1474 1654 / 1654 760 / 760 650 / 650 Objective General Appearance: positive No acute distress Eyes Bilateral: positive Normal inspection ENT: positive ENT inspection nml Neck: positive Nml inspection Respiratory: positive No respiratory distress Cardiovascular: positive Regular rate & rhythm Abdomen: positive No distention Skin: positive Color nml, No rash and Dry Extremities: positive Nml appearance and No pedal edema Neurologic/Psychiatric: positive Other (alert, MARTINEZ, not verbal) Lab Results 08/17/25 13:26 08/17/25 13:26 Sepsis Event Note (H) Evaluation Current Stage of Sepsis: Ruled out Assessment/Plan Problem List (1) Abnormal vital signs: Impression: Overall trend in heart rate is towards tachycardia. She is normotensive to slightly hypertensive. Continue propranolol 10 mg 3 times daily. (2) Polysubstance abuse: Impression: She has been in the hospital since 05/13/2025 UDS on presentation was positive for opiates, amphetamine, methamphetamine, cocaine She is out of the window for any acute withdrawal. She has not had any acute changes in her mental status for at least a week. (3) Altered mental status: Impression: Altered mentation likely secondary to polysubstance abuse UDS on presentation positive for opiates, amphetamine, methamphetamine, cocaine Patient was held in observation, and repeat CT and MRI were performed. MRI shows diffuse white matter hyperintense signal which may represent edema. Not the typical presentation of press Her altered mentation is not affected by her blood pressure, meaning it is not improved whenever her blood pressure is within normal limits Case discussed with neurology on 05/26, who recommended LP, but stated that this is likely sequela of hypoxic event from drug use. thiamine 500 mg IM 3 times daily started on 05 26,for 3 days, now on po thiamine daily 06/06 Daughter Ina made contact with RN. I also spoke with her, at this point, her mother's condition is sub acute. No need for interventions. Ina is aware her mother needs custodial care. She is willing to assist with this, but neither she, nor her mother have a safe place to live. Qualifiers: Altered mental status type: stupor Qualified Code(s): R40.1 - Stupor (4) Pubic bone fracture: Impression: X-ray hip on 05/25 shows moderately displaced right inferior pubic ramus fracture with extension in the medial acetabular column and suspicion for extension to the pelvic ring. Case was discussed with on-call orthopedist, who reports this is nonoperative. She is full weightbearing as tolerated and will need a walker at discharge. If her mentation improves, we will order PT jesús, currently not able to particpate with PT. She has been seen 1x for PT, no rehab potentential. She is getting to the chair daily with staff assistance (5) Malnutrition: Impression: Severe protein calorie malnutrition given obvious muscle wasting, loss of subcutaneous fat, bedridden. She is eating less these days. BMI increased from 14.9 to 17.6. This is an improvement. This patient's diagnosis and treatment plan was discussed this AM with attending physician as a part of multi disciplinary rounding meeting. non billable rounding Qualifiers: Malnutrition type: unspecified type Qualified Code(s): E46 - Unspecified protein-calorie malnutrition
[2025-09-05] MEDS: METOPROLOL SUCCINATE 25 MG TABLET PO SCH (21:37)
--- NOTE | 2025-09-06 15:37 | PROVIDER PROGRESS NOTE ---
Subjective Prog Note Date Prog Note Date: 09/06/25 Subjective Subjective: Playing with her doll in bed this afternoon. non verbal. refuses a drink from me. Current Medications Current Medications Current Medications: Current Medications Generic Name Dose Route Start Last Admin Trade Name Freq PRN Reason Stop Dose Admin Acetaminophen 650 mg 05/21/25 14:24 09/06/25 03:04 Acetaminophen 325 Mg Tablet PO 650 mg Q4HR PRN Administration Pain 1 to 4, or Fever Apixaban 2.5 mg 05/29/25 21:00 09/06/25 08:35 Apixaban 2.5 Mg Tablet PO 2.5 mg BID WEST Administration Clonidine HCl 1 patch 09/06/25 11:00 Clonidine 0.1 Mg Patch TOP Q7D WEST Cyclobenzaprine HCl 10 mg 06/18/25 13:19 09/06/25 03:06 Cyclobenzaprine 10 Mg Tablet PO 10 mg TID PRN Administration Spasms Docusate Sodium 250 - 500 mg 07/02/25 10:35 Docusate Sodium 250 Mg Capsule PO DAILY PRN Constipation Polyethylene Glycol 17 gm 07/02/25 10:34 09/04/25 08:22 Polyethylene Glycol 3350 17 Gm Packet PO 17 gm DAILY PRN Administration Constipation Multivit/Folic Acid/Iron 1 tab 05/25/25 08:00 09/06/25 08:35 Vitamin Tablet PO 1 tab DAILYWM WEST Administration Tamsulosin HCl 0.4 mg 08/10/25 09:00 09/06/25 08:35 Tamsulosin 0.4 Mg Capsule PO 0.4 mg DAILY WEST Administration Zinc Oxide 113 gm 06/28/25 12:00 09/05/25 03:14 Cod Liver Oil/Zinc Oxide 113 Gm Tube TOP 1 applic PRN PRN Administration Skin Care Objective Vital Signs/Intake & Output Reviewed Vital Signs: Yes Vital Signs: Vital Signs x48h Temp Pulse Resp BP Pulse Ox 09/05/25 07:45 36.4 C L 124 H 20 136/86 H 93 Intake & Output: Intake & Output 09/03/25 09/04/25 09/05/25 09/06/25 23:59 23:59 23:59 23:59 Intake Total 1654 / 1654 760 / 760 1010 / 1010 840 / 840 Balance 1654 / 1654 760 / 760 1010 / 1010 840 / 840 Weight (kg) 49.5 kg Objective General Appearance: positive No acute distress Eyes Bilateral: positive Normal inspection ENT: positive ENT inspection nml Neck: positive Nml inspection Respiratory: positive No respiratory distress Cardiovascular: positive Regular rate & rhythm Abdomen: positive No distention Skin: positive Color nml, No rash and Dry Extremities: positive Nml appearance and No pedal edema Neurologic/Psychiatric: positive Other (alert, MARTINEZ, not verbal) Lab Results 08/17/25 13:26 08/17/25 13:26 Sepsis Event Note (H) Evaluation Current Stage of Sepsis: Ruled out Assessment/Plan Problem List (1) Abnormal vital signs: Impression: Overall trend in heart rate is towards tachycardia. She is normotensive to slightly hypertensive. She had been missing doses on occasion. She needs her meds crushed, and therefore daily metoprolol is not a good option. Will try weekly clonidine patches. I expect that she will have several days to gain efficacy on this med. . (2) Polysubstance abuse: Impression: She has been in the hospital since 05/13/2025 UDS on presentation was positive for opiates, amphetamine, methamphetamine, cocaine She is out of the window for any acute withdrawal. She has not had any acute changes in her mental status for at least a week. (3) Altered mental status: Impression: Altered mentation likely secondary to polysubstance abuse UDS on presentation positive for opiates, amphetamine, methamphetamine, cocaine Patient was held in observation, and repeat CT and MRI were performed. MRI shows diffuse white matter hyperintense signal which may represent edema. Not the typical presentation of press Her altered mentation is not affected by her blood pressure, meaning it is not improved whenever her blood pressure is within normal limits Case discussed with neurology on 05/26, who recommended LP, but stated that this is likely sequela of hypoxic event from drug use. thiamine 500 mg IM 3 times daily started on 05 26,for 3 days, now on po thiamine daily 06/06 Daughter Ina made contact with RN. I also spoke with her, at this point, her mother's condition is sub acute. No need for interventions. 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 She is willing to assist with this, but neither she, nor her mother have a safe place to live. Qualifiers: Altered mental status type: stupor Qualified Code(s): R40.1 - Stupor (4) Pubic bone fracture: Impression: X-ray hip on 05/25 shows moderately displaced right inferior pubic ramus fracture with extension in the medial acetabular column and suspicion for extension to the pelvic ring. Case was discussed with on-call orthopedist, who reports this is nonoperative. She is full weightbearing as tolerated and will need a walker at discharge. If her mentation improves, we will order PT jesús, currently not able to particpate with PT. She has been seen 1x for PT, no rehab potentential. She is getting to the chair daily with staff assistance (5) Malnutrition: Impression: Severe protein calorie malnutrition given obvious muscle wasting, loss of subcutaneous fat, bedridden. She is eating less these days. BMI increased from 14.9 to 17.6. This is an improvement. This patient's diagnosis and treatment plan was discussed this AM with attending physician as a part of multi disciplinary rounding meeting. non billable rounding Qualifiers: Malnutrition type: unspecified type Qualified Code(s): E46 - Unspecified protein-calorie malnutrition
[2025-09-06] MEDS: cloNIDine 0.1 MG PATCH TOP SCH (17:36)
--- NOTE | 2025-09-07 12:32 | PROVIDER PROGRESS NOTE ---
Subjective Prog Note Date Prog Note Date: 09/07/25 Subjective Subjective: Sitting up in bed. 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 She is eating sweet food well but refuses savory. We have maintained pureed diet at the recommendation of speech therapy. Current Medications Current Medications Current Medications: Current Medications Generic Name Dose Route Start Last Admin Trade Name Freq PRN Reason Stop Dose Admin Acetaminophen 650 mg 05/21/25 14:24 09/07/25 03:36 Acetaminophen 325 Mg Tablet PO 650 mg Q4HR PRN Administration Pain 1 to 4, or Fever Apixaban 2.5 mg 05/29/25 21:00 09/07/25 08:30 Apixaban 2.5 Mg Tablet PO 2.5 mg BID WEST Administration Clonidine HCl 1 patch 09/06/25 11:00 09/06/25 17:36 Clonidine 0.1 Mg Patch TOP 1 patch Q7D WEST Administration Cyclobenzaprine HCl 10 mg 06/18/25 13:19 09/07/25 03:37 Cyclobenzaprine 10 Mg Tablet PO 10 mg TID PRN Administration Spasms Docusate Sodium 250 - 500 mg 07/02/25 10:35 Docusate Sodium 250 Mg Capsule PO DAILY PRN Constipation Polyethylene Glycol 17 gm 07/02/25 10:34 09/04/25 08:22 Polyethylene Glycol 3350 17 Gm Packet PO 17 gm DAILY PRN Administration Constipation Multivit/Folic Acid/Iron 1 tab 05/25/25 08:00 09/07/25 08:30 Vitamin Tablet PO 1 tab DAILYWM WEST Administration Tamsulosin HCl 0.4 mg 08/10/25 09:00 09/07/25 08:31 Tamsulosin 0.4 Mg Capsule PO 0.4 mg DAILY WEST Administration Zinc Oxide 113 gm 06/28/25 12:00 09/05/25 03:14 Cod Liver Oil/Zinc Oxide 113 Gm Tube TOP 1 applic PRN PRN Administration Skin Care Objective Vital Signs/Intake & Output Reviewed Vital Signs: Yes Vital Signs: Vital Signs x48h Temp Pulse Pulse Resp BP Pulse Ox 09/07/25 07:21 36.4 C L 96 96 18 159/102 H 98 Intake & Output: Intake & Output 09/04/25 09/05/25 09/06/25 09/07/25 23:59 23:59 23:59 23:59 Intake Total 760 / 760 1010 / 1010 1320 / 1320 275 / 275 Balance 760 / 760 1010 / 1010 1320 / 1320 275 / 275 Weight (kg) 49.5 kg Objective General Appearance: positive No acute distress Eyes Bilateral: positive Normal inspection ENT: positive ENT inspection nml Neck: positive Nml inspection Respiratory: positive No respiratory distress Cardiovascular: positive Regular rate & rhythm Abdomen: positive No distention Skin: positive Color nml, No rash and Dry Extremities: positive Nml appearance and No pedal edema Neurologic/Psychiatric: positive Other (alert, MARTINEZ, not verbal) Lab Results 08/17/25 13:26 08/17/25 13:26 Sepsis Event Note (H) Evaluation Current Stage of Sepsis: Ruled out Assessment/Plan Problem List (1) Abnormal vital signs: Impression: Overall trend in heart rate is towards tachycardia. She is normotensive to slightly hypertensive. She had been missing doses on occasion. She needs her meds crushed, and therefore daily metoprolol is not a good option. Will try weekly clonidine patches. I expect that she will have several days to gain efficacy on this med. Started about one day ago. continue to monitor. She may need 0.2mg dosing instead of 0.1 (2) Polysubstance abuse: Impression: She has been in the hospital since 05/13/2025 UDS on presentation was positive for opiates, amphetamine, methamphetamine, cocaine She is out of the window for any acute withdrawal. She has not had any acute changes in her mental status for at least a week. (3) Altered mental status: Impression: Altered mentation likely secondary to polysubstance abuse UDS on presentation positive for opiates, amphetamine, methamphetamine, cocaine Patient was held in observation, and repeat CT and MRI were performed. MRI shows diffuse white matter hyperintense signal which may represent edema. Not the typical presentation of press Her altered mentation is not affected by her blood pressure, meaning it is not improved whenever her blood pressure is within normal limits Case discussed with neurology on 05/26, who recommended LP, but stated that this is likely sequela of hypoxic event from drug use. thiamine 500 mg IM 3 times daily started on 05 26,for 3 days, now on po thiamine daily 06/06 Daughter Ina made contact with RN. I also spoke with her, at this point, her mother's condition is sub acute. No need for interventions. Ina is aware her mother needs emt intermediate care. She is willing to assist with this, but neither she, nor her mother have a safe place to live. Qualifiers: Altered mental status type: stupor Qualified Code(s): R40.1 - Stupor (4) Pubic bone fracture: Impression: X-ray hip on 05/25 shows moderately displaced right inferior pubic ramus fracture with extension in the medial acetabular column and suspicion for extension to the pelvic ring. Case was discussed with on-call orthopedist, who reports this is nonoperative. She is full weightbearing as tolerated and will need a walker at discharge. If her mentation improves, we will order PT evarturo, currently not able to particpate with PT. She has been seen 1x for PT, no rehab potentential. She is getting to the chair daily with staff assistance (5) Malnutrition: Impression: Severe protein calorie malnutrition given obvious muscle wasting, loss of subcutaneous fat, bedridden. She is eating less these days. BMI increased from 14.9 to 17.6. This is an improvement. This patient's diagnosis and treatment plan was discussed this AM with attending physician as a part of multi disciplinary rounding meeting. non billable rounding Qualifiers: Malnutrition type: unspecified type Qualified Code(s): E46 - Unspecified protein-calorie malnutrition
--- NOTE | 2025-09-08 16:07 | PROVIDER PROGRESS NOTE ---
Subjective Prog Note Date Prog Note Date: 09/08/25 Subjective Subjective: She is happy this afternoon. I asked her if she liked her lunch and she nods yes. She was upgraded to minced and moist diet and managed mac and cheese well today. Current Medications Current Medications Current Medications: Current Medications Generic Name Dose Route Start Last Admin Trade Name Garretq PRN Reason Stop Dose Admin Acetaminophen 650 mg 05/21/25 14:24 09/08/25 09:23 Acetaminophen 325 Mg Tablet PO 650 mg Q4HR PRN Administration Pain 1 to 4, or Fever Apixaban 2.5 mg 05/29/25 21:00 09/08/25 09:23 Apixaban 2.5 Mg Tablet PO 2.5 mg BID WEST Administration Clonidine HCl 1 patch 09/06/25 11:00 09/06/25 17:36 Clonidine 0.1 Mg Patch TOP 1 patch Q7D WEST Administration Cyclobenzaprine HCl 10 mg 06/18/25 13:19 09/08/25 09:23 Cyclobenzaprine 10 Mg Tablet PO 10 mg TID PRN Administration Spasms Docusate Sodium 250 - 500 mg 07/02/25 10:35 Docusate Sodium 250 Mg Capsule PO DAILY PRN Constipation Polyethylene Glycol 17 gm 07/02/25 10:34 09/04/25 08:22 Polyethylene Glycol 3350 17 Gm Packet PO 17 gm DAILY PRN Administration Constipation Multivit/Folic Acid/Iron 1 tab 05/25/25 08:00 09/08/25 09:23 Vitamin Tablet PO 1 tab DAILYWM WEST Administration Tamsulosin HCl 0.4 mg 08/10/25 09:00 09/08/25 09:23 Tamsulosin 0.4 Mg Capsule PO 0.4 mg DAILY WEST Administration Zinc Oxide 113 gm 06/28/25 12:00 09/08/25 09:24 Cod Liver Oil/Zinc Oxide 113 Gm Tube TOP 1 applic PRN PRN Administration Skin Care Objective Vital Signs/Intake & Output Reviewed Vital Signs: Yes Vital Signs: Vital Signs x48h Temp Pulse Resp BP BP Pulse Ox 09/08/25 15:47 36.7 C 104 H 24 131/89 H 96 09/08/25 08:07 36.7 C 110 H 16 131/99 H 98 Intake & Output: Intake & Output 09/05/25 09/06/25 09/07/25 09/08/25 23:59 23:59 23:59 23:59 Intake Total 1010 / 1010 1320 / 1320 1175 / 1175 460 / 460 Balance 1010 / 1010 1320 / 1320 1175 / 1175 460 / 460 Weight (kg) 49.5 kg Objective General Appearance: positive No acute distress Eyes Bilateral: positive Normal inspection ENT: positive ENT inspection nml Neck: positive Nml inspection Respiratory: positive No respiratory distress Cardiovascular: positive Regular rate & rhythm Abdomen: positive No distention Skin: positive Color nml, No rash and Dry Extremities: positive Nml appearance and No pedal edema Neurologic/Psychiatric: positive Other (alert, MARTINEZ) Lab Results 08/17/25 13:26 08/17/25 13:26 Sepsis Event Note (H) Evaluation Current Stage of Sepsis: Ruled out Assessment/Plan Problem List (1) Abnormal vital signs: Impression: Overall trend in heart rate is towards tachycardia. She is normotensive to slightly hypertensive. She had been missing doses on occasion. She needs her meds crushed, and therefore daily metoprolol is not a good option. Will try weekly clonidine patches. I expect that she will have several days to gain efficacy on this med. Started about one day ago. continue to monitor. She may need 0.2mg dosing instead of 0.1 (2) Polysubstance abuse: Impression: She has been in the hospital since 05/13/2025 UDS on presentation was positive for opiates, amphetamine, methamphetamine, cocaine She is out of the window for any acute withdrawal. She has not had any acute changes in her mental status for at least a week. (3) Altered mental status: Impression: Altered mentation likely secondary to polysubstance abuse UDS on presentation positive for opiates, amphetamine, methamphetamine, cocaine Patient was held in observation, and repeat CT and MRI were performed. MRI shows diffuse white matter hyperintense signal which may represent edema. Not the typical presentation of press Her altered mentation is not affected by her blood pressure, meaning it is not improved whenever her blood pressure is within normal limits Case discussed with neurology on 05/26, who recommended LP, but stated that this is likely sequela of hypoxic event from drug use. thiamine 500 mg IM 3 times daily started on 05 26,for 3 days, now on po thiamine daily 06/06 Daughter Ina made contact with RN. I also spoke with her, at this point, her mother's condition is sub acute. No need for interventions. Ina is aware her mother needs terminologist care. She is willing to assist with this, but neither she, nor her mother have a safe place to live. Qualifiers: Altered mental status type: stupor Qualified Code(s): R40.1 - Stupor (4) Pubic bone fracture: Impression: X-ray hip on 05/25 shows moderately displaced right inferior pubic ramus fracture with extension in the medial acetabular column and suspicion for extension to the pelvic ring. Case was discussed with on-call orthopedist, who reports this is nonoperative. She is full weightbearing as tolerated and will need a walker at discharge. If her mentation improves, we will order PT jesús, currently not able to particpate with PT. She has been seen 1x for PT, no rehab potentential. She is getting to the chair daily with staff assistance (5) Malnutrition: Impression: Severe protein calorie malnutrition given obvious muscle wasting, loss of subcutaneous fat, bedridden. She is eating less these days. BMI increased from 14.9 to 17.6. This is an improvement. This patient's diagnosis and treatment plan was discussed this AM with attending physician as a part of multi disciplinary rounding meeting. non billable rounding Qualifiers: Malnutrition type: unspecified type Qualified Code(s): E46 - Unspecified protein-calorie malnutrition
--- NOTE | 2025-09-09 09:26 | Speech Therapy Plan of Care ---
DIAGNOSIS Date of Service Date of Service: 09/08/25 Diagnosis: ALTERED MENTAL STATUS MEDICAL/SURGICAL PAST HISTORY Past History Medical History (Updated 09/03/25 @ 15:17 by ROSENDO Garcia) Chronic back pain Patient denies medical problems Surgical History (Updated 08/14/25 @ 00:38 by Olivia Lucas RN) History of repair of hiatal hernia No pertinent past surgical history SPEECH ASSESSMENT Assessment: Ms. Murphy is a 59-year-old female admitted May 2025 with altered mental status. Last seen by Speech Therapy on 08/11/25 with recommendations for a PO diet of pureed solids (IDDSI Level 4) and thin liquids (IDDSI Level 0) due to poor dentition and cognitive impairment. LABOR RELATIONS SUPERVISOR re-consulted to assess for potential diet advancement in light of declining PO intake. Objective: Patient seen at lunch with a meal consisting of pureed meat, potatoes, vegetables, minced macaroni and cheese (IDDSI Level 5 Minced & Moist), minced fruit (IDDSI Level 5), mildly thick liquid supplement (IDDSI Level 2 Ensure), and thin liquids (IDDSI Level 0). Cognitive status appears slightly improved; patient more responsive to questions and simple commands, occasionally providing 12 word verbal responses. Oral Mechanism Exam: Absent dentition, no dentures. Dehydrated oral cavity and tongue. Mildly reduced lingual strength and range of motion. PO Trials: Patient able to self-feed with moderate assistance. Demonstrated good oral clearance of minced and moist textures. No oral residue or pocketing observed. No overt signs or symptoms of aspiration. Silent aspiration cannot be ruled out at bedside but is not suspected. Impression: Mild oral phase dysphagia secondary to absent dentition. Swallow function a ppears adequate for advancement to IDDSI Level 5 (Minced & Moist) solids with thin liquids (IDDSI Level 0), given observed safety and improved participation. Recommendations: Advance diet to Minced & Moist solids and thin liquids with 1:1 supervision/assist at meals Encourage small bites/sips and slow rate of intake. Check oral cavity at end of meals. Maintain upright posture during and 30 minutes after meals. Continue oral care 23x daily to improve moisture and hygiene. Monitor for clinical signs of aspiration or changes in cognitive status. LABOR RELATIONS SUPERVISOR to follow up for tolerance and ongoing PO safety. SPEECH SKILLED NURSING GOALS Swallowing: ST half-way goal: Patient will safely consume the least restrictive diet and liquid level, as determined by ongoing swallow assessment, without overt s/s aspiration or pulmonary compromise, in order to maintain adequate nutrition and hydration Goal status: New
--- NOTE | 2025-09-09 14:01 | PROVIDER PROGRESS NOTE ---
Subjective Prog Note Date Prog Note Date: 09/09/25 Subjective Pt reports feeling: No change Current Medications Current Medications Current Medications: Current Medications Generic Name Dose Route Start Last Admin Trade Name Falguni PRN Reason Stop Dose Admin Acetaminophen 650 mg 05/21/25 14:24 09/08/25 20:34 Acetaminophen 325 Mg Tablet PO 650 mg Q4HR PRN Administration Pain 1 to 4, or Fever Apixaban 2.5 mg 05/29/25 21:00 09/09/25 09:30 Apixaban 2.5 Mg Tablet PO 2.5 mg BID WEST Administration Clonidine HCl 1 patch 09/06/25 11:00 09/06/25 17:36 Clonidine 0.1 Mg Patch TOP 1 patch Q7D WEST Administration Cyclobenzaprine HCl 10 mg 06/18/25 13:19 09/09/25 09:30 Cyclobenzaprine 10 Mg Tablet PO 10 mg TID PRN Administration Spasms Docusate Sodium 250 - 500 mg 07/02/25 10:35 Docusate Sodium 250 Mg Capsule PO DAILY PRN Constipation Polyethylene Glycol 17 gm 07/02/25 10:34 09/04/25 08:22 Polyethylene Glycol 3350 17 Gm Packet PO 17 gm DAILY PRN Administration Constipation Multivit/Folic Acid/Iron 1 tab 05/25/25 08:00 09/09/25 09:30 Vitamin Tablet PO 1 tab DAILYWM WEST Administration Tamsulosin HCl 0.4 mg 08/10/25 09:00 09/09/25 09:30 Tamsulosin 0.4 Mg Capsule PO 0.4 mg DAILY WEST Administration Zinc Oxide 113 gm 06/28/25 12:00 09/09/25 09:30 Cod Liver Oil/Zinc Oxide 113 Gm Tube TOP 1 applic PRN PRN Administration Skin Care Objective Vital Signs/Intake & Output Reviewed Vital Signs: Yes Vital Signs: Vital Signs x48h Temp Pulse Resp BP Pulse Ox 09/09/25 08:05 36.7 C 109 H 16 135/89 H 98 Intake & Output: Intake & Output 09/06/25 09/07/25 09/08/25 09/09/25 23:59 23:59 23:59 23:59 Intake Total 1320 / 1320 1175 / 1175 1140 / 1140 597 / 597 Balance 1320 / 1320 1175 / 1175 1140 / 1140 597 / 597 Objective General Appearance: positive No acute distress Eyes Bilateral: positive Normal inspection ENT: positive ENT inspection nml Neck: positive Nml inspection Respiratory: positive No respiratory distress Cardiovascular: positive Regular rate & rhythm Abdomen: positive No distention Skin: positive Color nml, No rash and Dry Extremities: positive Nml appearance and No pedal edema Neurologic/Psychiatric: positive Other (alert, MARTINEZ) Lab Results 08/17/25 13:26 08/17/25 13:26 Sepsis Event Note (H) Evaluation Current Stage of Sepsis: Ruled out Assessment/Plan Problem List (1) Abnormal vital signs: Impression: Overall trend in heart rate is towards tachycardia. She is normotensive to slightly hypertensive. She had been missing doses on occasion. She needs her meds crushed, and therefore daily metoprolol is not a good option. Will try weekly clonidine patches. I expect that she will have several days to gain efficacy on this med. Started about one day ago. continue to monitor. She may need 0.2mg dosing instead of 0.1 (2) Polysubstance abuse: Impression: She has been in the hospital since 05/13/2025 UDS on presentation was positive for opiates, amphetamine, methamphetamine, cocaine She is out of the window for any acute withdrawal. She has not had any acute changes in her mental status for at least a week. (3) Altered mental status: Impression: Altered mentation likely secondary to polysubstance abuse UDS on presentation positive for opiates, amphetamine, methamphetamine, cocaine Patient was held in observation, and repeat CT and MRI were performed. MRI shows diffuse white matter hyperintense signal which may represent edema. Not the typical presentation of press Her altered mentation is not affected by her blood pressure, meaning it is not improved whenever her blood pressure is within normal limits Case discussed with neurology on 05/26, who recommended LP, but stated that this is likely sequela of hypoxic event from drug use. thiamine 500 mg IM 3 times daily started on 05 26,for 3 days, now on po thiamine daily 06/06 Daughter Ina made contact with RN. I also spoke with her, at this point, her mother's condition is sub acute. No need for interventions. Ina is aware her mother needs senior living care. She is willing to assist with this, but neither she, nor her mother have a safe place to live. Qualifiers: Altered mental status type: stupor Qualified Code(s): R40.1 - Stupor (4) Pubic bone fracture: Impression: X-ray hip on 05/25 shows moderately displaced right inferior pubic ramus fracture with extension in the medial acetabular column and suspicion for extension to the pelvic ring. Case was discussed with on-call orthopedist, who reports this is nonoperative. She is full weightbearing as tolerated and will need a walker at discharge. If her mentation improves, we will order PT jesús, currently not able to particpate with PT. She has been seen 1x for PT, no rehab potentential. She is getting to the chair daily with staff assistance (5) Malnutrition: Impression: Severe protein calorie malnutrition given obvious muscle wasting, loss of subcutaneous fat, bedridden. She is eating less these days. BMI increased from 14.9 to 17.6. This is an improvement. This patient's diagnosis and treatment plan was discussed this AM with attending physician as a part of multi disciplinary rounding meeting. non billable rounding Qualifiers: Malnutrition type: unspecified type Qualified Code(s): E46 - Unspecified protein-calorie malnutrition
--- NOTE | 2025-09-10 14:45 | PROVIDER PROGRESS NOTE ---
Subjective Prog Note Date Prog Note Date: 09/10/25 Subjective Pt reports feeling: No change Current Medications Current Medications Current Medications: Current Medications Generic Name Dose Route Start Last Admin Trade Name Falguni PRN Reason Stop Dose Admin Acetaminophen 650 mg 05/21/25 14:24 09/08/25 20:34 Acetaminophen 325 Mg Tablet PO 650 mg Q4HR PRN Administration Pain 1 to 4, or Fever Apixaban 2.5 mg 05/29/25 21:00 09/10/25 08:19 Apixaban 2.5 Mg Tablet PO 2.5 mg BID WEST Administration Clonidine HCl 1 patch 09/06/25 11:00 09/06/25 17:36 Clonidine 0.1 Mg Patch TOP 1 patch Q7D WEST Administration Cyclobenzaprine HCl 10 mg 06/18/25 13:19 09/09/25 09:30 Cyclobenzaprine 10 Mg Tablet PO 10 mg TID PRN Administration Spasms Docusate Sodium 250 - 500 mg 07/02/25 10:35 Docusate Sodium 250 Mg Capsule PO DAILY PRN Constipation Polyethylene Glycol 17 gm 07/02/25 10:34 09/04/25 08:22 Polyethylene Glycol 3350 17 Gm Packet PO 17 gm DAILY PRN Administration Constipation Multivit/Folic Acid/Iron 1 tab 05/25/25 08:00 09/10/25 08:19 Vitamin Tablet PO 1 tab DAILYWM WEST Administration Tamsulosin HCl 0.4 mg 08/10/25 09:00 09/10/25 08:19 Tamsulosin 0.4 Mg Capsule PO 0.4 mg DAILY WEST Administration Zinc Oxide 113 gm 06/28/25 12:00 09/09/25 09:30 Cod Liver Oil/Zinc Oxide 113 Gm Tube TOP 1 applic PRN PRN Administration Skin Care Objective Vital Signs/Intake & Output Reviewed Vital Signs: Yes Vital Signs: Vital Signs x48h Temp Pulse Resp BP Pulse Ox 09/10/25 07:47 36.4 C L 98 20 151/102 H 97 Intake & Output: Intake & Output 09/07/25 09/08/25 09/09/25 09/10/25 23:59 23:59 23:59 23:59 Intake Total 1175 / 1175 1140 / 1140 1317 / 1317 860 / 860 Balance 1175 / 1175 1140 / 1140 1317 / 1317 860 / 860 Objective General Appearance: positive No acute distress Eyes Bilateral: positive Normal inspection ENT: positive ENT inspection nml Neck: positive Nml inspection Respiratory: positive No respiratory distress Cardiovascular: positive Regular rate & rhythm Abdomen: positive No distention Skin: positive Color nml, No rash and Dry Extremities: positive Nml appearance and No pedal edema Neurologic/Psychiatric: positive Other (alert, MARTINEZ) Lab Results 08/17/25 13:26 08/17/25 13:26 Sepsis Event Note (H) Evaluation Current Stage of Sepsis: Ruled out Assessment/Plan Problem List (1) Abnormal vital signs: Impression: Overall trend in heart rate is towards tachycardia. She is normotensive to slightly hypertensive. She had been missing doses on occasion. She needs her meds crushed, and therefore daily metoprolol is not a good option. Will try weekly clonidine patches. I expect that she will have several days to gain efficacy on this med. Started about one day ago. continue to monitor. She may need 0.2mg dosing instead of 0.1 (2) Polysubstance abuse: Impression: She has been in the hospital since 05/13/2025 UDS on presentation was positive for opiates, amphetamine, methamphetamine, cocaine She is out of the window for any acute withdrawal. She has not had any acute changes in her mental status for at least a week. (3) Altered mental status: Impression: Altered mentation likely secondary to polysubstance abuse UDS on presentation positive for opiates, amphetamine, methamphetamine, cocaine Patient was held in observation, and repeat CT and MRI were performed. MRI shows diffuse white matter hyperintense signal which may represent edema. Not the typical presentation of press Her altered mentation is not affected by her blood pressure, meaning it is not improved whenever her blood pressure is within normal limits Case discussed with neurology on 05/26, who recommended LP, but stated that this is likely sequela of hypoxic event from drug use. thiamine 500 mg IM 3 times daily started on 05 26,for 3 days, now on po thiamine daily 06/06 Daughter Ina made contact with RN. I also spoke with her, at this point, her mother's condition is sub acute. No need for interventions. Ina is aware her mother needs retirement care. She is willing to assist with this, but neither she, nor her mother have a safe place to live. Qualifiers: Altered mental status type: stupor Qualified Code(s): R40.1 - Stupor (4) Pubic bone fracture: Impression: X-ray hip on 05/25 shows moderately displaced right inferior pubic ramus fracture with extension in the medial acetabular column and suspicion for extension to the pelvic ring. Case was discussed with on-call orthopedist, who reports this is nonoperative. She is full weightbearing as tolerated and will need a walker at discharge. If her mentation improves, we will order PT jesús, currently not able to particpate with PT. She has been seen 1x for PT, no rehab potentential. She is getting to the chair daily with staff assistance (5) Malnutrition: Impression: Severe protein calorie malnutrition given obvious muscle wasting, loss of subcutaneous fat, bedridden. She is eating less these days. BMI increased from 14.9 to 17.6. This is an improvement. This patient's diagnosis and treatment plan was discussed this AM with attending physician as a part of multi disciplinary rounding meeting. non billable rounding Qualifiers: Malnutrition type: unspecified type Qualified Code(s): E46 - Unspecified protein-calorie malnutrition
--- NOTE | 2025-09-11 11:27 | PROVIDER PROGRESS NOTE ---
Subjective Prog Note Date Prog Note Date: 09/11/25 Subjective Pt reports feeling: No change Current Medications Current Medications Current Medications: Current Medications Generic Name Dose Route Start Last Admin Trade Name Falguni PRN Reason Stop Dose Admin Acetaminophen 650 mg 05/21/25 14:24 09/10/25 21:41 Acetaminophen 325 Mg Tablet PO 650 mg Q4HR PRN Administration Pain 1 to 4, or Fever Apixaban 2.5 mg 05/29/25 21:00 09/11/25 07:56 Apixaban 2.5 Mg Tablet PO 2.5 mg BID WEST Administration Clonidine HCl 1 patch 09/06/25 11:00 09/06/25 17:36 Clonidine 0.1 Mg Patch TOP 1 patch Q7D WEST Administration Cyclobenzaprine HCl 10 mg 06/18/25 13:19 09/10/25 21:41 Cyclobenzaprine 10 Mg Tablet PO 10 mg TID PRN Administration Spasms Docusate Sodium 250 - 500 mg 07/02/25 10:35 Docusate Sodium 250 Mg Capsule PO DAILY PRN Constipation Polyethylene Glycol 17 gm 07/02/25 10:34 09/04/25 08:22 Polyethylene Glycol 3350 17 Gm Packet PO 17 gm DAILY PRN Administration Constipation Multivit/Folic Acid/Iron 1 tab 05/25/25 08:00 09/11/25 07:55 Vitamin Tablet PO 1 tab DAILYWM WEST Administration Tamsulosin HCl 0.4 mg 08/10/25 09:00 09/11/25 07:56 Tamsulosin 0.4 Mg Capsule PO 0.4 mg DAILY WEST Administration Zinc Oxide 113 gm 06/28/25 12:00 09/10/25 21:41 Cod Liver Oil/Zinc Oxide 113 Gm Tube TOP 1 applic PRN PRN Administration Skin Care Objective Vital Signs/Intake & Output Reviewed Vital Signs: Yes Vital Signs: Vital Signs x48h Temp Pulse Pulse Resp BP 09/11/25 09:00 36.3 C L 129 H 120 H 20 122/84 Intake & Output: Intake & Output 09/08/25 09/09/25 09/10/25 09/11/25 23:59 23:59 23:59 23:59 Intake Total 1140 / 1140 1317 / 1317 1460 / 1460 660 / 660 Balance 1140 / 1140 1317 / 1317 1460 / 1460 660 / 660 Objective General Appearance: positive No acute distress Eyes Bilateral: positive Normal inspection ENT: positive ENT inspection nml Neck: positive Nml inspection Respiratory: positive No respiratory distress Cardiovascular: positive Regular rate & rhythm Abdomen: positive No distention Skin: positive Color nml, No rash and Dry Extremities: positive Nml appearance and No pedal edema Neurologic/Psychiatric: positive Other (alert, MARTINEZ) Lab Results 08/17/25 13:26 08/17/25 13:26 Sepsis Event Note (H) Evaluation Current Stage of Sepsis: Ruled out Assessment/Plan Problem List (1) Abnormal vital signs: Impression: Overall trend in heart rate is towards tachycardia. She is normotensive to slightly hypertensive. She had been missing doses on occasion. She needs her meds crushed, and therefore daily metoprolol is not a good option. Will try weekly clonidine patches. I expect that she will have several days to gain efficacy on this med. Started about one day ago. continue to monitor. She may need 0.2mg dosing instead of 0.1 (2) Polysubstance abuse: Impression: She has been in the hospital since 05/13/2025 UDS on presentation was positive for opiates, amphetamine, methamphetamine, cocaine She is out of the window for any acute withdrawal. She has not had any acute changes in her mental status for at least a week. (3) Altered mental status: Impression: Altered mentation likely secondary to polysubstance abuse UDS on presentation positive for opiates, amphetamine, methamphetamine, cocaine Patient was held in observation, and repeat CT and MRI were performed. MRI shows diffuse white matter hyperintense signal which may represent edema. Not the typical presentation of press Her altered mentation is not affected by her blood pressure, meaning it is not improved whenever her blood pressure is within normal limits Case discussed with neurology on 05/26, who recommended LP, but stated that this is likely sequela of hypoxic event from drug use. thiamine 500 mg IM 3 times daily started on 05 26,for 3 days, now on po thiamine daily 06/06 Daughter Ina made contact with RN. I also spoke with her, at this point, her mother's condition is sub acute. No need for interventions. Ina is aware her mother needs residential care. She is willing to assist with this, but neither she, nor her mother have a safe place to live. Qualifiers: Altered mental status type: stupor Qualified Code(s): R40.1 - Stupor (4) Pubic bone fracture: Impression: X-ray hip on 05/25 shows moderately displaced right inferior pubic ramus fracture with extension in the medial acetabular column and suspicion for extension to the pelvic ring. Case was discussed with on-call orthopedist, who reports this is nonoperative. She is full weightbearing as tolerated and will need a walker at discharge. If her mentation improves, we will order PT jesús, currently not able to particpate with PT. She has been seen 1x for PT, no rehab potentential. She is getting to the chair daily with staff assistance (5) Malnutrition: Impression: Severe protein calorie malnutrition given obvious muscle wasting, loss of subcutaneous fat, bedridden. She is eating less these days. BMI increased from 14.9 to 17.6. This is an improvement. This patient's diagnosis and treatment plan was discussed this AM with attending physician as a part of multi disciplinary rounding meeting. non billable rounding Qualifiers: Malnutrition type: unspecified type Qualified Code(s): E46 - Unspecified protein-calorie malnutrition
--- NOTE | 2025-09-12 11:59 | PROVIDER PROGRESS NOTE ---
Subjective Prog Note Date Prog Note Date: 09/12/25 Subjective Pt reports feeling: No change Current Medications Current Medications Current Medications: Current Medications Generic Name Dose Route Start Last Admin Trade Name Falguni PRN Reason Stop Dose Admin Acetaminophen 650 mg 05/21/25 14:24 09/12/25 08:45 Acetaminophen 325 Mg Tablet PO 650 mg Q4HR PRN Administration Pain 1 to 4, or Fever Apixaban 2.5 mg 05/29/25 21:00 09/12/25 08:45 Apixaban 2.5 Mg Tablet PO 2.5 mg BID WEST Administration Clonidine HCl 1 patch 09/06/25 11:00 09/06/25 17:36 Clonidine 0.1 Mg Patch TOP 1 patch Q7D WEST Administration Cyclobenzaprine HCl 10 mg 06/18/25 13:19 09/12/25 08:46 Cyclobenzaprine 10 Mg Tablet PO 10 mg TID PRN Administration Spasms Docusate Sodium 250 - 500 mg 07/02/25 10:35 Docusate Sodium 250 Mg Capsule PO DAILY PRN Constipation Polyethylene Glycol 17 gm 07/02/25 10:34 09/04/25 08:22 Polyethylene Glycol 3350 17 Gm Packet PO 17 gm DAILY PRN Administration Constipation Multivit/Folic Acid/Iron 1 tab 05/25/25 08:00 09/12/25 08:45 Vitamin Tablet PO 1 tab DAILYWM WEST Administration Tamsulosin HCl 0.4 mg 08/10/25 09:00 09/12/25 08:45 Tamsulosin 0.4 Mg Capsule PO 0.4 mg DAILY WEST Administration Zinc Oxide 113 gm 06/28/25 12:00 09/12/25 08:46 Cod Liver Oil/Zinc Oxide 113 Gm Tube TOP 1 applic PRN PRN Administration Skin Care Objective Vital Signs/Intake & Output Reviewed Vital Signs: Yes Vital Signs: Vital Signs x48h Temp Pulse Resp BP Pulse Ox O2 Flow Rate 09/12/25 07:57 36.5 C 119 H 18 160/104 H 90 L 0 Intake & Output: Intake & Output 09/09/25 09/10/25 09/11/25 09/12/25 23:59 23:59 23:59 23:59 Intake Total 1317 / 1317 1460 / 1460 1320 / 1320 300 / 300 Balance 1317 / 1317 1460 / 1460 1320 / 1320 300 / 300 Objective General Appearance: positive No acute distress Eyes Bilateral: positive Normal inspection ENT: positive ENT inspection nml Neck: positive Nml inspection Respiratory: positive No respiratory distress Cardiovascular: positive Regular rate & rhythm Abdomen: positive No distention Skin: positive Color nml, No rash and Dry Extremities: positive Nml appearance and No pedal edema Neurologic/Psychiatric: positive Other (alert, MARTINEZ) Lab Results 08/17/25 13:26 08/17/25 13:26 Sepsis Event Note (H) Evaluation Current Stage of Sepsis: Ruled out Assessment/Plan Problem List (1) Abnormal vital signs: Impression: Overall trend in heart rate is towards tachycardia. She is normotensive to slightly hypertensive. She had been missing doses on occasion. She needs her meds crushed, and therefore daily metoprolol is not a good option. Will try weekly clonidine patches. I expect that she will have several days to gain efficacy on this med. Started about one day ago. continue to monitor. She may need 0.2mg dosing instead of 0.1 09/12: Increased to 0.2 mg clonidine patch (2) Polysubstance abuse: Impression: She has been in the hospital since 05/13/2025 UDS on presentation was positive for opiates, amphetamine, methamphetamine, cocaine She is out of the window for any acute withdrawal. She has not had any acute changes in her mental status for at least a week. (3) Altered mental status: Impression: Altered mentation likely secondary to polysubstance abuse UDS on presentation positive for opiates, amphetamine, methamphetamine, cocaine Patient was held in observation, and repeat CT and MRI were performed. MRI shows diffuse white matter hyperintense signal which may represent edema. Not the typical presentation of press Her altered mentation is not affected by her blood pressure, meaning it is not improved whenever her blood pressure is within normal limits Case discussed with neurology on 05/26, who recommended LP, but stated that this is likely sequela of hypoxic event from drug use. thiamine 500 mg IM 3 times daily started on 05 26,for 3 days, now on po thiamine daily 06/06 Daughter Ina made contact with RN. I also spoke with her, at this point, her mother's condition is sub acute. No need for interventions. Ina is aware her mother needs terminal carman care. She is willing to assist with this, but neither she, nor her mother have a safe place to live. Qualifiers: Altered mental status type: stupor Qualified Code(s): R40.1 - Stupor (4) Pubic bone fracture: Impression: X-ray hip on 05/25 shows moderately displaced right inferior pubic ramus fracture with extension in the medial acetabular column and suspicion for extension to the pelvic ring. Case was discussed with on-call orthopedist, who reports this is nonoperative. She is full weightbearing as tolerated and will need a walker at discharge. If her mentation improves, we will order PT jesús, currently not able to particpate with PT. She has been seen 1x for PT, no rehab potentential. She is getting to the chair daily with staff assistance (5) Malnutrition: Impression: Severe protein calorie malnutrition given obvious muscle wasting, loss of subcutaneous fat, bedridden. She is eating less these days. BMI increased from 14.9 to 17.6. This is an improvement. This patient's diagnosis and treatment plan was discussed this AM with attending physician as a part of multi disciplinary rounding meeting. non billable rounding Qualifiers: Malnutrition type: unspecified type Qualified Code(s): E46 - Unspecified protein-calorie malnutrition
[2025-09-12] MEDS: cloNIDine 0.2 MG PATCH TOP SCH (12:29)
--- NOTE | 2025-09-13 12:59 | PROVIDER PROGRESS NOTE ---
Subjective Prog Note Date Prog Note Date: 09/13/25 Subjective Pt reports feeling: No change Current Medications Current Medications Current Medications: Current Medications Generic Name Dose Route Start Last Admin Trade Name Falguni PRN Reason Stop Dose Admin Acetaminophen 650 mg 05/21/25 14:24 09/13/25 02:59 Acetaminophen 325 Mg Tablet PO 650 mg Q4HR PRN Administration Pain 1 to 4, or Fever Apixaban 2.5 mg 05/29/25 21:00 09/13/25 08:47 Apixaban 2.5 Mg Tablet PO 2.5 mg BID WEST Administration Clonidine HCl 1 patch 09/12/25 12:00 09/12/25 12:29 Clonidine 0.2 Mg Patch TOP 1 patch Q7D WEST Administration Cyclobenzaprine HCl 10 mg 06/18/25 13:19 09/13/25 02:59 Cyclobenzaprine 10 Mg Tablet PO 10 mg TID PRN Administration Spasms Docusate Sodium 250 - 500 mg 07/02/25 10:35 Docusate Sodium 250 Mg Capsule PO DAILY PRN Constipation Polyethylene Glycol 17 gm 07/02/25 10:34 09/04/25 08:22 Polyethylene Glycol 3350 17 Gm Packet PO 17 gm DAILY PRN Administration Constipation Multivit/Folic Acid/Iron 1 tab 05/25/25 08:00 09/13/25 08:47 Vitamin Tablet PO 1 tab DAILYWM WEST Administration Tamsulosin HCl 0.4 mg 08/10/25 09:00 09/13/25 08:47 Tamsulosin 0.4 Mg Capsule PO 0.4 mg DAILY WEST Administration Zinc Oxide 113 gm 06/28/25 12:00 09/13/25 08:47 Cod Liver Oil/Zinc Oxide 113 Gm Tube TOP 1 applic PRN PRN Administration Skin Care Objective Vital Signs/Intake & Output Reviewed Vital Signs: Yes Vital Signs: Vital Signs x48h Temp Pulse Resp BP Pulse Ox 09/13/25 08:44 36.5 C 108 H 24 164/90 H 95 Intake & Output: Intake & Output 09/10/25 09/11/25 09/12/25 09/13/25 23:59 23:59 23:59 23:59 Intake Total 1460 / 1460 1320 / 1320 900 / 900 360 / 360 Balance 1460 / 1460 1320 / 1320 900 / 900 360 / 360 Weight (kg) 50 kg Objective General Appearance: positive No acute distress Eyes Bilateral: positive Normal inspection ENT: positive ENT inspection nml Neck: positive Nml inspection Respiratory: positive No respiratory distress Cardiovascular: positive Regular rate & rhythm Abdomen: positive No distention Skin: positive Color nml, No rash and Dry Extremities: positive Nml appearance and No pedal edema Neurologic/Psychiatric: positive Other (alert, MARTINEZ) Lab Results 08/17/25 13:26 08/17/25 13:26 Sepsis Event Note (H) Evaluation Current Stage of Sepsis: Ruled out Assessment/Plan Problem List (1) Abnormal vital signs: Impression: Overall trend in heart rate is towards tachycardia. She is normotensive to slightly hypertensive. She had been missing doses on occasion. She needs her meds crushed, and therefore daily metoprolol is not a good option. Will try weekly clonidine patches. I expect that she will have several days to gain efficacy on this med. Started about one day ago. continue to monitor. She may need 0.2mg dosing instead of 0.1 09/12: Increased to 0.2 mg clonidine patch (2) Polysubstance abuse: Impression: She has been in the hospital since 05/13/2025 UDS on presentation was positive for opiates, amphetamine, methamphetamine, cocaine She is out of the window for any acute withdrawal. She has not had any acute changes in her mental status for at least a week. (3) Altered mental status: Impression: Altered mentation likely secondary to polysubstance abuse UDS on presentation positive for opiates, amphetamine, methamphetamine, cocaine Patient was held in observation, and repeat CT and MRI were performed. MRI shows diffuse white matter hyperintense signal which may represent edema. Not the typical presentation of press Her altered mentation is not affected by her blood pressure, meaning it is not improved whenever her blood pressure is within normal limits Case discussed with neurology on 05/26, who recommended LP, but stated that this is likely sequela of hypoxic event from drug use. thiamine 500 mg IM 3 times daily started on 05 26,for 3 days, now on po thiamine daily 06/06 Daughter Ina made contact with RN. I also spoke with her, at this point, her mother's condition is sub acute. No need for interventions. Ina is aware her mother needs manager combination care. She is willing to assist with this, but neither she, nor her mother have a safe place to live. Qualifiers: Altered mental status type: stupor Qualified Code(s): R40.1 - Stupor (4) Pubic bone fracture: Impression: X-ray hip on 05/25 shows moderately displaced right inferior pubic ramus fracture with extension in the medial acetabular column and suspicion for extension to the pelvic ring. Case was discussed with on-call orthopedist, who reports this is nonoperative. She is full weightbearing as tolerated and will need a walker at discharge. If her mentation improves, we will order PT jesús, currently not able to particpate with PT. She has been seen 1x for PT, no rehab potentential. She is getting to the chair daily with staff assistance (5) Malnutrition: Impression: Severe protein calorie malnutrition given obvious muscle wasting, loss of subcutaneous fat, bedridden. She is eating less these days. BMI increased from 14.9 to 17.6. This is an improvement. This patient's diagnosis and treatment plan was discussed this AM with attending physician as a part of multi disciplinary rounding meeting. non billable rounding Qualifiers: Malnutrition type: unspecified type Qualified Code(s): E46 - Unspecified protein-calorie malnutrition
[2025-09-14] MEDS: DOCUSATE SODIUM 250 MG CAPSULE PO PRN (08:31)
--- NOTE | 2025-09-14 13:06 | PROVIDER PROGRESS NOTE ---
Subjective Prog Note Date Prog Note Date: 09/14/25 Subjective Pt reports feeling: No change Current Medications Current Medications Current Medications: Current Medications Generic Name Dose Route Start Last Admin Trade Name Falguni PRN Reason Stop Dose Admin Acetaminophen 650 mg 05/21/25 14:24 09/14/25 08:31 Acetaminophen 325 Mg Tablet PO 650 mg Q4HR PRN Administration Pain 1 to 4, or Fever Apixaban 2.5 mg 05/29/25 21:00 09/14/25 08:31 Apixaban 2.5 Mg Tablet PO 2.5 mg BID WEST Administration Clonidine HCl 1 patch 09/12/25 12:00 09/12/25 12:29 Clonidine 0.2 Mg Patch TOP 1 patch Q7D WEST Administration Cyclobenzaprine HCl 5 mg 09/14/25 10:45 Cyclobenzaprine 10 Mg Tablet PO TID PRN Spasms Docusate Sodium 250 - 500 mg 07/02/25 10:35 09/14/25 08:31 Docusate Sodium 250 Mg Capsule PO 250 mg DAILY PRN Administration Constipation Polyethylene Glycol 17 gm 07/02/25 10:34 09/14/25 08:31 Polyethylene Glycol 3350 17 Gm Packet PO 17 gm DAILY PRN Administration Constipation Multivit/Folic Acid/Iron 1 tab 05/25/25 08:00 09/14/25 08:31 Vitamin Tablet PO 1 tab DAILYWM WEST Administration Tamsulosin HCl 0.4 mg 08/10/25 09:00 09/14/25 08:32 Tamsulosin 0.4 Mg Capsule PO 0.4 mg DAILY WEST Administration Zinc Oxide 113 gm 06/28/25 12:00 09/14/25 08:32 Cod Liver Oil/Zinc Oxide 113 Gm Tube TOP 1 applic PRN PRN Administration Skin Care Objective Vital Signs/Intake & Output Reviewed Vital Signs: Yes Vital Signs: Vital Signs x48h Temp Pulse Resp BP Pulse Ox O2 Flow Rate 09/14/25 08:28 97.9 F 108 H 19 137/77 H 96 0 Intake & Output: Intake & Output 09/11/25 09/12/25 09/13/25 09/14/25 23:59 23:59 23:59 23:59 Intake Total 1320 / 1320 900 / 900 480 / 480 557 / 557 Balance 1320 / 1320 900 / 900 480 / 480 557 / 557 Weight (kg) 110 lb 3.698 oz Objective General Appearance: positive No acute distress Eyes Bilateral: positive Normal inspection ENT: positive ENT inspection nml Neck: positive Nml inspection Respiratory: positive No respiratory distress Cardiovascular: positive Regular rate & rhythm Abdomen: positive No distention Skin: positive Color nml, No rash and Dry Extremities: positive Nml appearance and No pedal edema Neurologic/Psychiatric: positive Other (alert, MARTINEZ) Lab Results 08/17/25 13:26 08/17/25 13:26 Sepsis Event Note (H) Evaluation Current Stage of Sepsis: Ruled out Assessment/Plan Problem List (1) Abnormal vital signs: Impression: Overall trend in heart rate is towards tachycardia. She is normotensive to slightly hypertensive. She had been missing doses on occasion. She needs her meds crushed, and therefore daily metoprolol is not a good option. Will try weekly clonidine patches. I expect that she will have several days to gain efficacy on this med. She may need 0.2mg dosing instead of 0.1 09/12: Increased to 0.2 mg clonidine patch (2) Polysubstance abuse: Impression: She has been in the hospital since 05/13/2025 UDS on presentation was positive for opiates, amphetamine, methamphetamine, cocaine She is out of the window for any acute withdrawal. She has not had any acute changes in her mental status for at least a week. (3) Altered mental status: Impression: Altered mentation likely secondary to polysubstance abuse UDS on presentation positive for opiates, amphetamine, methamphetamine, cocaine Patient was held in observation, and repeat CT and MRI were performed. MRI shows diffuse white matter hyperintense signal which may represent edema. Not the typical presentation of press Her altered mentation is not affected by her blood pressure, meaning it is not improved whenever her blood pressure is within normal limits Case discussed with neurology on 05/26, who recommended LP, but stated that this is likely sequela of hypoxic event from drug use. thiamine 500 mg IM 3 times daily started on 05 26,for 3 days, now on po thiamine daily 06/06 Daughter Ina made contact with RN. I also spoke with her, at this point, her mother's condition is sub acute. No need for interventions. Ina is aware her mother needs intermediate care. She is willing to assist with this, but neither she, nor her mother have a safe place to live. Qualifiers: Altered mental status type: stupor Qualified Code(s): R40.1 - Stupor (4) Pubic bone fracture: Impression: X-ray hip on 05/25 shows moderately displaced right inferior pubic ramus fracture with extension in the medial acetabular column and suspicion for extension to the pelvic ring. Case was discussed with on-call orthopedist, who reports this is nonoperative. She is full weightbearing as tolerated and will need a walker at discharge. If her mentation improves, we will order PT jesús, currently not able to particpate with PT. She has been seen 1x for PT, no rehab potentential. She is getting to the chair daily with staff assistance (5) Malnutrition: Impression: Severe protein calorie malnutrition given obvious muscle wasting, loss of subcutaneous fat, bedridden. She is eating less these days. BMI increased from 14.9 to 17.6. This is an improvement. This patient's diagnosis and treatment plan was discussed this AM with attending physician as a part of multi disciplinary rounding meeting. non billable rounding Qualifiers: Malnutrition type: unspecified type Qualified Code(s): E46 - Unspecified protein-calorie malnutrition
[2025-09-15] MEDS: CYCLOBENZAPRINE 10 MG TABLET PO PRN (06:48)
--- NOTE | 2025-09-15 13:14 | PROVIDER PROGRESS NOTE ---
Subjective Prog Note Date Prog Note Date: 09/15/25 Subjective Pt reports feeling: No change Current Medications Current Medications Current Medications: Current Medications Generic Name Dose Route Start Last Admin Trade Name Falguni PRN Reason Stop Dose Admin Acetaminophen 650 mg 05/21/25 14:24 09/15/25 06:48 Acetaminophen 325 Mg Tablet PO 650 mg Q4HR PRN Administration Pain 1 to 4, or Fever Apixaban 2.5 mg 05/29/25 21:00 09/15/25 08:28 Apixaban 2.5 Mg Tablet PO 2.5 mg BID WEST Administration Clonidine HCl 1 patch 09/12/25 12:00 09/12/25 12:29 Clonidine 0.2 Mg Patch TOP 1 patch Q7D WEST Administration Cyclobenzaprine HCl 5 mg 09/14/25 10:45 09/15/25 06:48 Cyclobenzaprine 10 Mg Tablet PO 5 mg TID PRN Administration Spasms Docusate Sodium 250 - 500 mg 07/02/25 10:35 09/14/25 08:31 Docusate Sodium 250 Mg Capsule PO 250 mg DAILY PRN Administration Constipation Polyethylene Glycol 17 gm 07/02/25 10:34 09/14/25 08:31 Polyethylene Glycol 3350 17 Gm Packet PO 17 gm DAILY PRN Administration Constipation Multivit/Folic Acid/Iron 1 tab 05/25/25 08:00 09/15/25 08:28 Vitamin Tablet PO 1 tab DAILYWM WEST Administration Tamsulosin HCl 0.4 mg 08/10/25 09:00 09/15/25 08:28 Tamsulosin 0.4 Mg Capsule PO 0.4 mg DAILY WEST Administration Zinc Oxide 113 gm 06/28/25 12:00 09/14/25 08:32 Cod Liver Oil/Zinc Oxide 113 Gm Tube TOP 1 applic PRN PRN Administration Skin Care Objective Vital Signs/Intake & Output Reviewed Vital Signs: Yes Vital Signs: Vital Signs x48h Temp Pulse Resp BP Pulse Ox 09/15/25 07:39 97.5 F L 99 20 102/67 97 Intake & Output: Intake & Output 09/12/25 09/13/25 09/14/25 09/15/25 23:59 23:59 23:59 23:59 Intake Total 900 / 900 480 / 480 1037 / 1037 480 / 480 Balance 900 / 900 480 / 480 1037 / 1037 480 / 480 Weight (kg) 110 lb 3.698 oz Objective General Appearance: positive No acute distress Eyes Bilateral: positive Normal inspection ENT: positive ENT inspection nml Neck: positive Nml inspection Respiratory: positive No respiratory distress Cardiovascular: positive Regular rate & rhythm Abdomen: positive No distention Skin: positive Color nml, No rash and Dry Extremities: positive Nml appearance and No pedal edema Neurologic/Psychiatric: positive Other (alert, MARTINEZ) Lab Results 08/17/25 13:26 08/17/25 13:26 Sepsis Event Note (H) Evaluation Current Stage of Sepsis: Ruled out Assessment/Plan Problem List (1) Abnormal vital signs: Impression: Overall trend in heart rate is towards tachycardia. She is normotensive to slightly hypertensive. She had been missing doses on occasion. She needs her meds crushed, and therefore daily metoprolol is not a good option. Will try weekly clonidine patches. I expect that she will have several days to gain efficacy on this med. She may need 0.2mg dosing instead of 0.1 09/12: Increased to 0.2 mg clonidine patch (2) Polysubstance abuse: Impression: She has been in the hospital since 05/13/2025 UDS on presentation was positive for opiates, amphetamine, methamphetamine, cocaine She is out of the window for any acute withdrawal. She has not had any acute changes in her mental status for at least a week. (3) Altered mental status: Impression: Altered mentation likely secondary to polysubstance abuse UDS on presentation positive for opiates, amphetamine, methamphetamine, cocaine Patient was held in observation, and repeat CT and MRI were performed. MRI shows diffuse white matter hyperintense signal which may represent edema. Not the typical presentation of press Her altered mentation is not affected by her blood pressure, meaning it is not improved whenever her blood pressure is within normal limits Case discussed with neurology on 05/26, who recommended LP, but stated that this is likely sequela of hypoxic event from drug use. thiamine 500 mg IM 3 times daily started on 05 26,for 3 days, now on po thiamine daily 06/06 Daughter Ina made contact with RN. I also spoke with her, at this point, her mother's condition is sub acute. No need for interventions. 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 She is willing to assist with this, but neither she, nor her mother have a safe place to live. Qualifiers: Altered mental status type: stupor Qualified Code(s): R40.1 - Stupor (4) Pubic bone fracture: Impression: X-ray hip on 05/25 shows moderately displaced right inferior pubic ramus fracture with extension in the medial acetabular column and suspicion for extension to the pelvic ring. Case was discussed with on-call orthopedist, who reports this is nonoperative. She is full weightbearing as tolerated and will need a walker at discharge. If her mentation improves, we will order PT jesús, currently not able to particpate with PT. She has been seen 1x for PT, no rehab potentential. She is getting to the chair daily with staff assistance (5) Malnutrition: Impression: Severe protein calorie malnutrition given obvious muscle wasting, loss of subcutaneous fat, bedridden. She is eating less these days. BMI increased from 14.9 to 17.6. This is an improvement. This patient's diagnosis and treatment plan was discussed this AM with attending physician as a part of multi disciplinary rounding meeting. non billable rounding Qualifiers: Malnutrition type: unspecified type Qualified Code(s): E46 - Unspecified protein-calorie malnutrition
--- NOTE | 2025-09-16 19:16 | PROVIDER PROGRESS NOTE ---
Subjective Prog Note Date Prog Note Date: 09/16/25 Subjective Subjective: in bed, pulling at blankets. gives me one word answers today. Current Medications Current Medications Current Medications: Current Medications Generic Name Dose Route Start Last Admin Trade Name Freq PRN Reason Stop Dose Admin Acetaminophen 650 mg 05/21/25 14:24 09/16/25 07:55 Acetaminophen 325 Mg Tablet PO 650 mg Q4HR PRN Administration Pain 1 to 4, or Fever Apixaban 2.5 mg 05/29/25 21:00 09/16/25 08:09 Apixaban 2.5 Mg Tablet PO 2.5 mg BID WEST Administration Clonidine HCl 1 patch 09/12/25 12:00 09/12/25 12:29 Clonidine 0.2 Mg Patch TOP 1 patch Q7D WEST Administration Cyclobenzaprine HCl 10 mg 09/16/25 21:00 Cyclobenzaprine 10 Mg Tablet PO HS WEST Cyclobenzaprine HCl 5 mg 09/16/25 11:14 Cyclobenzaprine 10 Mg Tablet PO BID PRN Spasms Docusate Sodium 250 - 500 mg 07/02/25 10:35 09/14/25 08:31 Docusate Sodium 250 Mg Capsule PO 250 mg DAILY PRN Administration Constipation Polyethylene Glycol 17 gm 07/02/25 10:34 09/16/25 07:54 Polyethylene Glycol 3350 17 Gm Packet PO 17 gm DAILY PRN Administration Constipation Multivit/Folic Acid/Iron 1 tab 05/25/25 08:00 09/16/25 07:54 Vitamin Tablet PO 1 tab DAILYWM WEST Administration Tamsulosin HCl 0.4 mg 08/10/25 09:00 09/16/25 08:09 Tamsulosin 0.4 Mg Capsule PO 0.4 mg DAILY WEST Administration Zinc Oxide 113 gm 06/28/25 12:00 09/16/25 07:54 Cod Liver Oil/Zinc Oxide 113 Gm Tube TOP 1 applic PRN PRN Administration Skin Care Objective Vital Signs/Intake & Output Reviewed Vital Signs: Yes Vital Signs: Vital Signs x48h Temp Pulse Resp BP Pulse Ox 09/15/25 07:39 97.5 F L 99 20 102/67 97 Intake & Output: Intake & Output 09/13/25 09/14/25 09/15/25 09/16/25 23:59 23:59 23:59 23:59 Intake Total 480 / 480 1037 / 1037 1170 / 1170 900 / 900 Balance 480 / 480 1037 / 1037 1170 / 1170 900 / 900 Objective General Appearance: positive No acute distress Eyes Bilateral: positive Normal inspection ENT: positive ENT inspection nml Neck: positive Nml inspection Respiratory: positive No respiratory distress Cardiovascular: positive Regular rate & rhythm Abdomen: positive No distention Skin: positive Color nml, No rash and Dry Extremities: positive Nml appearance and No pedal edema Neurologic/Psychiatric: positive Other (alert, MARTINEZ) Lab Results 08/17/25 13:26 08/17/25 13:26 Sepsis Event Note (H) Evaluation Current Stage of Sepsis: Ruled out Assessment/Plan Problem List (1) Abnormal vital signs: Impression: Overall trend in heart rate is towards tachycardia. She is normotensive to slightly hypertensive. She had been missing doses on occasion. She needs her meds crushed, and therefore daily metoprolol is not a good option. Will try weekly clonidine patches. I expect that she will have several days to gain efficacy on this med. She may need 0.2mg dosing instead of 0.1 09/12: Increased to 0.2 mg clonidine patch Clonidine has been effective at 0.2. Continue this med- should also be simple to do in the outpatient environment. (2) Polysubstance abuse: Impression: She has been in the hospital since 05/13/2025 UDS on presentation was positive for opiates, amphetamine, methamphetamine, cocaine She is out of the window for any acute withdrawal. She has not had any acute changes in her mental status for at least a week. (3) Altered mental status: Impression: Altered mentation likely secondary to polysubstance abuse UDS on presentation positive for opiates, amphetamine, methamphetamine, cocaine Patient was held in observation, and repeat CT and MRI were performed. MRI shows diffuse white matter hyperintense signal which may represent edema. Not the typical presentation of press Her altered mentation is not affected by her blood pressure, meaning it is not improved whenever her blood pressure is within normal limits Case discussed with neurology on 05/26, who recommended LP, but stated that this is likely sequela of hypoxic event from drug use. thiamine 500 mg IM 3 times daily started on 05 26,for 3 days, now on po thiamine daily 06/06 Daughter Ina made contact with RN. I also spoke with her, at this point, her mother's condition is sub acute. No need for interventions. 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 She is willing to assist with this, but neither she, nor her mother have a safe place to live. Qualifiers: Altered mental status type: stupor Qualified Code(s): R40.1 - Stupor (4) Pubic bone fracture: Impression: X-ray hip on 05/25 shows moderately displaced right inferior pubic ramus fracture with extension in the medial acetabular column and suspicion for extension to the pelvic ring. Case was discussed with on-call orthopedist, who reports this is nonoperative. She is full weightbearing as tolerated and will need a walker at discharge. If her mentation improves, we will order PT jesús, currently not able to particpate with PT. She has been seen 1x for PT, no rehab potentential. (5) Malnutrition: Impression: Severe protein calorie malnutrition given obvious muscle wasting, loss of subcutaneous fat, bedridden. She is eating less these days, has become more choosy with what she will eat. BMI increased from 14.9 to 17.8. This is an improvement. This patient's diagnosis and treatment plan was discussed this AM with attending physician as a part of multi disciplinary rounding meeting. non billable rounding Qualifiers: Malnutrition type: unspecified type Qualified Code(s): E46 - Unspecified protein-calorie malnutrition
[2025-09-16] MEDS: CYCLOBENZAPRINE 10 MG TABLET PO SCH (21:04)
[2025-09-17] MEDS: CYCLOBENZAPRINE 10 MG TABLET PO PRN (08:39)
--- NOTE | 2025-09-17 17:33 | PROVIDER PROGRESS NOTE ---
Subjective Prog Note Date Prog Note Date: 09/17/25 Subjective Subjective: She is continuously spinning the head on her baby doll. not verbal with me today. Dinner arriving and ready to eat. Current Medications Current Medications Current Medications: Current Medications Generic Name Dose Route Start Last Admin Trade Name Falguni PRN Reason Stop Dose Admin Acetaminophen 650 mg 05/21/25 14:24 09/17/25 08:38 Acetaminophen 325 Mg Tablet PO 650 mg Q4HR PRN Administration Pain 1 to 4, or Fever Apixaban 2.5 mg 05/29/25 21:00 09/17/25 08:38 Apixaban 2.5 Mg Tablet PO 2.5 mg BID WEST Administration Clonidine HCl 1 patch 09/12/25 12:00 09/12/25 12:29 Clonidine 0.2 Mg Patch TOP 1 patch Q7D WEST Administration Cyclobenzaprine HCl 10 mg 09/16/25 21:00 09/16/25 21:04 Cyclobenzaprine 10 Mg Tablet PO 10 mg HS WEST Administration Cyclobenzaprine HCl 5 mg 09/16/25 11:14 09/17/25 08:39 Cyclobenzaprine 10 Mg Tablet PO 5 mg BID PRN Administration Spasms Docusate Sodium 250 - 500 mg 07/02/25 10:35 09/14/25 08:31 Docusate Sodium 250 Mg Capsule PO 250 mg DAILY PRN Administration Constipation Polyethylene Glycol 17 gm 07/02/25 10:34 09/17/25 08:39 Polyethylene Glycol 3350 17 Gm Packet PO 17 gm DAILY PRN Administration Constipation Multivit/Folic Acid/Iron 1 tab 05/25/25 08:00 09/17/25 08:38 Vitamin Tablet PO 1 tab DAILYWM WEST Administration Tamsulosin HCl 0.4 mg 08/10/25 09:00 09/17/25 08:38 Tamsulosin 0.4 Mg Capsule PO 0.4 mg DAILY WEST Administration Zinc Oxide 113 gm 06/28/25 12:00 09/16/25 21:35 Cod Liver Oil/Zinc Oxide 113 Gm Tube TOP 1 applic PRN PRN Administration Skin Care Objective Vital Signs/Intake & Output Reviewed Vital Signs: Yes Vital Signs: Vital Signs x48h Temp Pulse Resp BP Pulse Ox 09/17/25 16:37 36.7 C 97 22 107/68 91 L Intake & Output: Intake & Output 09/14/25 09/15/25 09/16/25 09/17/25 23:59 23:59 23:59 23:59 Intake Total 1037 / 1037 1170 / 1170 1100 / 1100 220 / 220 Output Total 0 / 0 Balance 1037 / 1037 1170 / 1170 1100 / 1100 220 / 220 Objective General Appearance: positive No acute distress Eyes Bilateral: positive Normal inspection ENT: positive ENT inspection nml Neck: positive Nml inspection Respiratory: positive No respiratory distress Cardiovascular: positive Regular rate & rhythm Abdomen: positive No distention Skin: positive Color nml, No rash and Dry Extremities: positive Nml appearance and No pedal edema Neurologic/Psychiatric: positive Other (alert, MARTINEZ) Lab Results 08/17/25 13:26 08/17/25 13:26 Sepsis Event Note (H) Evaluation Current Stage of Sepsis: Ruled out Assessment/Plan Problem List (1) Abnormal vital signs: Impression: Tachycardia and hypertension. Clonidine has been effective at 0.2. Continue this med- should also be simple to do in the outpatient environment. (2) Polysubstance abuse: Impression: She has been in the hospital since 05/13/2025 UDS on presentation was positive for opiates, amphetamine, methamphetamine, cocaine She is out of the window for any acute withdrawal. She has not had any acute changes in her mental status for at least a week. (3) Altered mental status: Impression: Altered mentation likely secondary to polysubstance abuse UDS on presentation positive for opiates, amphetamine, methamphetamine, cocaine Patient was held in observation, and repeat CT and MRI were performed. MRI shows diffuse white matter hyperintense signal which may represent edema. Not the typical presentation of press Her altered mentation is not affected by her blood pressure, meaning it is not improved whenever her blood pressure is within normal limits Case discussed with neurology on 05/26, who recommended LP, but stated that this is likely sequela of hypoxic event from drug use. thiamine 500 mg IM 3 times daily started on 05 26,for 3 days, now on po thiamine daily 06/06 Daughter Ina made contact with RN. I also spoke with her, at this point, her mother's condition is sub acute. No need for interventions. Ina is aware her mother needs long-term care. She is willing to assist with this, but neither she, nor her mother have a safe place to live. Qualifiers: Altered mental status type: stupor Qualified Code(s): R40.1 - Stupor (4) Pubic bone fracture: Impression: X-ray hip on 05/25 shows moderately displaced right inferior pubic ramus fracture with extension in the medial acetabular column and suspicion for extension to the pelvic ring. Case was discussed with on-call orthopedist, who reports this is nonoperative. She is full weightbearing as tolerated and will need a walker at discharge. If her mentation improves, we will order PT jesús, currently not able to particpate with PT. She has been seen 1x for PT, no rehab potentential. (5) Malnutrition: Impression: Severe protein calorie malnutrition given obvious muscle wasting, loss of subcutaneous fat, bedridden. She is eating less these days, has become more choosy with what she will eat. BMI increased from 14.9 to 17.8. This is an improvement. This patient's diagnosis and treatment plan was discussed this AM with attending physician as a part of multi disciplinary rounding meeting. non billable rounding Qualifiers: Malnutrition type: unspecified type Qualified Code(s): E46 - Unspecified protein-calorie malnutrition
--- NOTE | 2025-09-18 12:17 | PROVIDER PROGRESS NOTE ---
Subjective Prog Note Date Prog Note Date: 09/18/25 Subjective Subjective: She is lying in bed. Her hair is not put up and she is pulling at it. Current Medications Current Medications Current Medications: Current Medications Generic Name Dose Route Start Last Admin Trade Name Falguni PRN Reason Stop Dose Admin Acetaminophen 650 mg 05/21/25 14:24 09/17/25 08:38 Acetaminophen 325 Mg Tablet PO 650 mg Q4HR PRN Administration Pain 1 to 4, or Fever Apixaban 2.5 mg 05/29/25 21:00 09/18/25 09:25 Apixaban 2.5 Mg Tablet PO 2.5 mg BID WEST Administration Clonidine HCl 1 patch 09/12/25 12:00 09/12/25 12:29 Clonidine 0.2 Mg Patch TOP 1 patch Q7D WEST Administration Cyclobenzaprine HCl 10 mg 09/16/25 21:00 09/17/25 22:52 Cyclobenzaprine 10 Mg Tablet PO 10 mg HS WEST Administration Cyclobenzaprine HCl 5 mg 09/16/25 11:14 09/18/25 09:26 Cyclobenzaprine 10 Mg Tablet PO 5 mg BID PRN Administration Spasms Docusate Sodium 250 - 500 mg 07/02/25 10:35 09/14/25 08:31 Docusate Sodium 250 Mg Capsule PO 250 mg DAILY PRN Administration Constipation Polyethylene Glycol 17 gm 07/02/25 10:34 09/17/25 08:39 Polyethylene Glycol 3350 17 Gm Packet PO 17 gm DAILY PRN Administration Constipation Multivit/Folic Acid/Iron 1 tab 05/25/25 08:00 09/18/25 09:25 Vitamin Tablet PO 1 tab DAILYWM WEST Administration Tamsulosin HCl 0.4 mg 08/10/25 09:00 09/18/25 09:25 Tamsulosin 0.4 Mg Capsule PO 0.4 mg DAILY WEST Administration Zinc Oxide 113 gm 06/28/25 12:00 09/16/25 21:35 Cod Liver Oil/Zinc Oxide 113 Gm Tube TOP 1 applic PRN PRN Administration Skin Care Objective Vital Signs/Intake & Output Reviewed Vital Signs: Yes Vital Signs: Vital Signs x48h Temp Pulse Resp BP Pulse Ox 09/18/25 07:59 36.5 C 98 16 114/77 92 Intake & Output: Intake & Output 09/15/25 09/16/25 09/17/2509/18/25 23:59 23:59 23:59 23:59 Intake Total 1170 / 1170 1100 / 1100 700 / 700 120 / 120 Output Total 0 / 0 Balance 1170 / 1170 1100 / 1100 700 / 700 120 / 120 Objective General Appearance: positive No acute distress Eyes Bilateral: positive Normal inspection ENT: positive ENT inspection nml Neck: positive Nml inspection Respiratory: positive No respiratory distress Cardiovascular: positive Regular rate & rhythm Abdomen: positive No distention Skin: positive Color nml, No rash and Dry Extremities: positive Nml appearance and No pedal edema Neurologic/Psychiatric: positive Other (alert, MARTINEZ) Lab Results 08/17/25 13:26 08/17/25 13:26 Sepsis Event Note (H) Evaluation Current Stage of Sepsis: Ruled out Assessment/Plan Problem List (1) Abnormal vital signs: Impression: Tachycardia and hypertension. Clonidine has been effective at 0.2. Continue this med- should also be simple to do in the outpatient environment. (2) Polysubstance abuse: Impression: She has been in the hospital since 05/13/2025 UDS on presentation was positive for opiates, amphetamine, methamphetamine, cocaine She is out of the window for any acute withdrawal. She has not had any acute changes in her mental status for at least a week. (3) Altered mental status: Impression: Altered mentation likely secondary to polysubstance abuse UDS on presentation positive for opiates, amphetamine, methamphetamine, cocaine Patient was held in observation, and repeat CT and MRI were performed. MRI shows diffuse white matter hyperintense signal which may represent edema. Not the typical presentation of press Her altered mentation is not affected by her blood pressure, meaning it is not improved whenever her blood pressure is within normal limits Case discussed with neurology on 05/26, who recommended LP, but stated that this is likely sequela of hypoxic event from drug use. thiamine 500 mg IM 3 times daily started on 05 26,for 3 days, now on po thiamine daily 06/06 Daughter Ina made contact with RN. I also spoke with her, at this point, her mother's condition is sub acute. No need for interventions. Ina is aware her mother needs [facility] care. She is willing to assist with this, but neither she, nor her mother have a safe place to live. Qualifiers: Altered mental status type: stupor Qualified Code(s): R40.1 - Stupor (4) Pubic bone fracture: Impression: X-ray hip on 05/25 shows moderately displaced right inferior pubic ramus fracture with extension in the medial acetabular column and suspicion for extension to the pelvic ring. Case was discussed with on-call orthopedist, who reports this is nonoperative. She is full weightbearing as tolerated and will need a walker at discharge. If her mentation improves, we will order PT jesús, currently not able to particpate with PT. She has been seen 1x for PT, no rehab potentential. (5) Malnutrition: Impression: Severe protein calorie malnutrition given obvious muscle wasting, loss of subcutaneous fat, bedridden. She is eating less these days, has become more choosy with what she will eat. BMI increased from 14.9 to 17.8. This is an improvement. This patient's diagnosis and treatment plan was discussed this AM with attending physician as a part of multi disciplinary rounding meeting. non billable rounding Qualifiers: Malnutrition type: unspecified type Qualified Code(s): E46 - Unspecified protein-calorie malnutrition
--- NOTE | 2025-09-19 12:44 | PROVIDER PROGRESS NOTE ---
Subjective Prog Note Date Prog Note Date: 09/19/25 Subjective Subjective: She has been not eating well and seems to be complaining of pain but difficult to understand from her where the pain is. She cannot really tell me. Rubbing at her right knee some. She has a pre existing right inferior pubic ramus fracture. given that she is not eating well, could be related to teeth. seems to be swallowing well. Current Medications Current Medications Current Medications: Current Medications Generic Name Dose Route Start Last Admin Trade Name Freq PRN Reason Stop Dose Admin Acetaminophen 650 mg 05/21/25 14:24 09/19/25 10:04 Acetaminophen 325 Mg Tablet PO 650 mg Q4HR PRN Administration Pain 1 to 4, or Fever Apixaban 2.5 mg 05/29/25 21:00 09/19/25 10:04 Apixaban 2.5 Mg Tablet PO 2.5 mg BID WEST Administration Clonidine HCl 1 patch 09/12/25 12:00 09/19/25 12:42 Clonidine 0.2 Mg Patch TOP 1 patch Q7D WEST Administration Cyclobenzaprine HCl 10 mg 09/16/25 21:00 09/18/25 20:29 Cyclobenzaprine 10 Mg Tablet PO 10 mg HS WEST Administration Cyclobenzaprine HCl 5 mg 09/16/25 11:14 09/19/25 10:05 Cyclobenzaprine 10 Mg Tablet PO 5 mg BID PRN Administration Spasms Docusate Sodium 250 - 500 mg 07/02/25 10:35 09/14/25 08:31 Docusate Sodium 250 Mg Capsule PO 250 mg DAILY PRN Administration Constipation Polyethylene Glycol 17 gm 07/02/25 10:34 09/17/25 08:39 Polyethylene Glycol 3350 17 Gm Packet PO 17 gm DAILY PRN Administration Constipation Multivit/Folic Acid/Iron 1 tab 05/25/25 08:00 09/19/25 10:04 Vitamin Tablet PO 1 tab DAILYWM WEST Administration Tamsulosin HCl 0.4 mg 08/10/25 09:00 09/19/25 10:04 Tamsulosin 0.4 Mg Capsule PO 0.4 mg DAILY WEST Administration Zinc Oxide 113 gm 06/28/25 12:00 09/16/25 21:35 Cod Liver Oil/Zinc Oxide 113 Gm Tube TOP 1 applic PRN PRN Administration Skin Care Objective Vital Signs/Intake & Output Reviewed Vital Signs: Yes Vital Signs: Vital Signs x48h Temp Pulse Resp BP Pulse Ox 09/19/25 08:30 36.6 C 114 H 24 129/91 H 91 L Intake & Output: Intake & Output 09/16/25 09/17/25 09/18/25 09/19/25 23:59 23:59 23:59 23:59 Intake Total 1100 / 1100 700 / 700 960 / 960 150 / 150 Output Total 0 / 0 Balance 1100 / 1100 700 / 700 960 / 960 150 / 150 Objective General Appearance: positive No acute distress and Other (awake and alert. yes and no answers are not consistent. ) Eyes Bilateral: positive Conjunctivae nml ENT: positive Oral lesions (right lower tooth #21 or 22 with decay and erythema at the base, no abscess noted, tender to percussion with tongue blade. ) and Other (poor dentition overall. ) Neck: positive Nml inspection Respiratory: positive No respiratory distress and Breath sounds nml Cardiovascular: positive Regular rate & rhythm Abdomen: positive No distention Back: positive Nml inspection Skin: positive Color nml, No rash and Dry Extremities: positive Other (right knee with small joint effusion, mild degree of warmth as compared to left. ) Neurologic/Psychiatric: positive Other (minimally verbal) Lab Results 09/19/25 12:56 09/19/25 12:56 Sepsis Event Note (H) Evaluation Current Stage of Sepsis: Ruled out Assessment/Plan Problem List (1) Abnormal vital signs: Impression: Tachycardia and hypertension. Clonidine has been effective at 0.2. Continue this med- should also be simple to do in the outpatient environment. Could also be related to dental infection. (2) Dental infection: Impression: not eating well. poor dentition. infected base of tooth that is tender. I cannot put my hand into her mouth to palpate the tissues, as I do not trust her not to bite me. No option to pull the tooth here. would use augmentin but anaphylaxis to PCN. therefore, macrolide treatment: azithromycin for 5 days. considered keflex plus flagyl, but more doses per day. (3) Polysubstance abuse: Impression: She has been in the hospital since 05/13/2025 UDS on presentation was positive for opiates, amphetamine, methamphetamine, cocaine She is out of the window for any acute withdrawal. She has not had any acute changes in her mental status for at least a week. (4) Altered mental status: Impression: Altered mentation likely secondary to polysubstance abuse UDS on presentation positive for opiates, amphetamine, methamphetamine, cocaine Patient was held in observation, and repeat CT and MRI were performed. MRI shows diffuse white matter hyperintense signal which may represent edema. Not the typical presentation of press Her altered mentation is not affected by her blood pressure, meaning it is not improved whenever her blood pressure is within normal limits Case discussed with neurology on 05/26, who recommended LP, but stated that this is likely sequela of hypoxic event from drug use. thiamine 500 mg IM 3 times daily started on 05 26,for 3 days, now on po thiamine daily 06/06 Daughter Ina made contact with RN. I also spoke with her, at this point, her mother's condition is sub acute. No need for interventions. Ina is aware her mother needs [facility] care. She is willing to assist with this, but neither she, nor her mother have a safe place to live. Qualifiers: Altered mental status type: stupor Qualified Code(s): R40.1 - Stupor (5) Pubic bone fracture: Impression: X-ray hip on 05/25 shows moderately displaced right inferior pubic ramus fracture with extension in the medial acetabular column and suspicion for extension to the pelvic ring. Case was discussed with on-call orthopedist, who reports this is nonoperative. She is full weightbearing as tolerated and will need a walker at discharge. If her mentation improves, we will order PT eval, currently not able to particpate with PT. She has been seen 1x for PT, no rehab potentential. (6) Malnutrition: Impression: Severe protein calorie malnutrition given obvious muscle wasting, loss of subcutaneous fat, bedridden. She is eating less these days, has become more choosy with what she will eat. BMI increased from 14.9 to 17.8. This is an improvement. This patient's diagnosis and treatment plan was discussed this AM with attending physician as a part of multi disciplinary rounding meeting. non billable rounding Qualifiers: Malnutrition type: unspecified type Qualified Code(s): E46 - Unspecified protein-calorie malnutrition (7) Effusion, right knee: Impression: very mild. WBC and uric acid is normal. Will try voltaren gel and continue to monitor.
[2025-09-19 13:13] LABS: HCT - HEMATOCRIT 44.4 % (37.0-47.0); HGB - HEMOGLOBIN 14.7 g/dL (12.0-16.0); MEAN PLATELET VOLUME 9.9 fL (7.9-10.8); NRBC ABSOLUTE COUNT (AUTO) 0.00 x10^3/uL; NUCLEATED RED BLOOD CELLS AUTO 0.0 /100WBC; PLT - PLATELET COUNT 390 10^3/uL (130-450); RED CELL DISTRIBUTION WIDTH 13.2 % (12.0-15.0)
[2025-09-19 13:24] LABS: BUN - BLOOD UREA NITROGEN 16.0 mg/dL (6-20); CARBON DIOXIDE - CO2 31.0 mmol/L (21-32); CREATININE 0.4 mg/dL (0.6-1.3); GFR - MDRD 163.0 (>89)
[2025-09-19] MEDS: AZITHROMYCIN 250 MG TABLET PO SCH (15:33)
[2025-09-20] MEDS: AZITHROMYCIN 250 MG TABLET PO SCH (09:02)
--- NOTE | 2025-09-20 17:48 | PROVIDER PROGRESS NOTE ---
Subjective Prog Note Date Prog Note Date: 09/20/25 Subjective Subjective: She says her mouth feels better. She ate well at breakfast, but not as well for lunch today. Current Medications Current Medications Current Medications: Current Medications Generic Name Dose Route Start Last Admin Trade Name Falguni PRN Reason Stop Dose Admin Acetaminophen 650 mg 05/21/25 14:24 09/19/25 10:04 Acetaminophen 325 Mg Tablet PO 650 mg Q4HR PRN Administration Pain 1 to 4, or Fever Apixaban 2.5 mg 05/29/25 21:00 09/20/25 09:02 Apixaban 2.5 Mg Tablet PO 2.5 mg BID WEST Administration Azithromycin 250 mg 09/20/25 09:00 09/20/25 09:02 Azithromycin 250 Mg Tablet PO 09/23/25 09:01 250 mg DAILY WEST Administration Clonidine HCl 1 patch 09/12/25 12:00 09/19/25 12:42 Clonidine 0.2 Mg Patch TOP 1 patch Q7D WEST Administration Cyclobenzaprine HCl 10 mg 09/16/25 21:00 09/19/25 20:00 Cyclobenzaprine 10 Mg Tablet PO 10 mg HS WEST Administration Cyclobenzaprine HCl 5 mg 09/16/25 11:14 09/19/25 10:05 Cyclobenzaprine 10 Mg Tablet PO 5 mg BID PRN Administration Spasms Diclofenac Sodium 2 gm 09/19/25 14:31 Diclofenac Sodium 1% Gel 50 Gm Tube TOP QID PRN Mild Pain (Level 1-3) Docusate Sodium 250 - 500 mg 07/02/25 10:35 09/14/25 08:31 Docusate Sodium 250 Mg Capsule PO 250 mg DAILY PRN Administration Constipation Polyethylene Glycol 17 gm 07/02/25 10:34 09/17/25 08:39 Polyethylene Glycol 3350 17 Gm Packet PO 17 gm DAILY PRN Administration Constipation Multivit/Folic Acid/Iron 1 tab 05/25/25 08:00 09/20/25 09:02 Vitamin Tablet PO 1 tab DAILYWM WEST Administration Tamsulosin HCl 0.4 mg 08/10/25 09:00 09/20/25 09:02 Tamsulosin 0.4 Mg Capsule PO 0.4 mg DAILY WEST Administration Zinc Oxide 113 gm 06/28/25 12:00 09/20/25 01:48 PDT Cod Liver Oil/Zinc Oxide 113 Gm Tube TOP 1 applic PRN PRN Administration Skin Care Objective Vital Signs/Intake & Output Reviewed Vital Signs: Yes Vital Signs: Vital Signs x48h Temp Pulse Resp BP Pulse Ox 09/19/25 08:30 36.6 C 114 H 24 129/91 H 91 L Intake & Output: Intake & Output 09/17/25 09/18/25 09/19/25 09/20/25 23:59 23:59 23:59 22:59 Intake Total 700 / 700 960 / 960 1230 / 1230 897 / 897 Output Total 0 / 0 Balance 700 / 700 960 / 960 1230 / 1230 897 / 897 Weight (kg) 49.5 kg Objective General Appearance: positive No acute distress and Other (awake and alert. yes and no answers are not consistent. ) Eyes Bilateral: positive Conjunctivae nml ENT: positive Oral lesions (slightly less gingival inflammation. ), Dry mucous membranes (oral MM appear very dry today. ) and Other (poor dentition overall. ) Neck: positive Nml inspection Respiratory: positive No respiratory distress and Breath sounds nml Cardiovascular: positive Regular rate & rhythm Abdomen: positive No distention Back: positive Nml inspection Skin: positive Color nml, No rash and Dry Extremities: positive Other (right knee with small joint effusion, mild degree of warmth as compared to left. ) Neurologic/Psychiatric: positive Other (minimally verbal) Lab Results 09/19/25 12:56 09/19/25 12:56 Sepsis Event Note (H) Evaluation Current Stage of Sepsis: Ruled out Assessment/Plan Problem List (1) Abnormal vital signs: Impression: Tachycardia and hypertension. Clonidine has been effective at 0.2. Continue this med- should also be simple to do in the outpatient environment. Could also be related to dental infection. (2) Dental infection: Impression: somewhat better intake poor dentition. infected base of tooth that is tender. I cannot put my hand into her mouth to palpate the tissues, as I do not trust her not to bite me. No option to pull the tooth here. would use augmentin but anaphylaxis to PCN. therefore, macrolide treatment: azithromycin for 5 days. considered keflex plus flagyl, but more doses per day. She is day 2/5 zithromax. (3) Polysubstance abuse: Impression: She has been in the hospital since 05/13/2025 UDS on presentation was positive for opiates, amphetamine, methamphetamine, cocaine She is out of the window for any acute withdrawal. She has not had any acute changes in her mental status for at least a week. (4) Altered mental status: Impression: Altered mentation likely secondary to polysubstance abuse UDS on presentation positive for opiates, amphetamine, methamphetamine, cocaine Patient was held in observation, and repeat CT and MRI were performed. MRI shows diffuse white matter hyperintense signal which may represent edema. Not the typical presentation of press Her altered mentation is not affected by her blood pressure, meaning it is not improved whenever her blood pressure is within normal limits Case discussed with neurology on 05/26, who recommended LP, but stated that this is likely sequela of hypoxic event from drug use. thiamine 500 mg IM 3 times daily started on 05 26,for 3 days, now on po thiamine daily 06/06 Daughter Ina made contact with RN. I also spoke with her, at this point, her mother's condition is sub acute. No need for interventions. Ina is aware her mother needs [facility] care. She is willing to assist with this, but neither she, nor her mother have a safe place to live. Qualifiers: Altered mental status type: stupor Qualified Code(s): R40.1 - Stupor (5) Pubic bone fracture: Impression: X-ray hip on 05/25 shows moderately displaced right inferior pubic ramus fracture with extension in the medial acetabular column and suspicion for extension to the pelvic ring. Case was discussed with on-call orthopedist, who reports this is nonoperative. She is full weightbearing as tolerated and will need a walker at discharge. If her mentation improves, we will order PT jesús, currently not able to particpate with PT. She has been seen 1x for PT, no rehab potentential. (6) Malnutrition: Impression: Severe protein calorie malnutrition given obvious muscle wasting, loss of subcutaneous fat, bedridden. She is eating less these days, has become more choosy with what she will eat. BMI increased from 14.9 to 17.8. This is an improvement. Qualifiers: Malnutrition type: unspecified type Qualified Code(s): E46 - Unspecified protein-calorie malnutrition (7) Effusion, right knee: Impression: very mild. WBC and uric acid is normal. Will try voltaren gel and continue to monitor. This patient's diagnosis and treatment plan was discussed this AM with attending physician as a part of multi disciplinary rounding meeting. non billable rounding
[2025-09-20] MEDS: DICLOFENAC SODIUM 1% GEL 50 GM TUBE TOP PRN (18:05)
--- NOTE | 2025-09-21 16:51 | PROVIDER PROGRESS NOTE ---
Subjective Prog Note Date Prog Note Date: 09/21/25 Subjective Subjective: no change. She is sitting up in bedside chair, about to be fed dinner. in general she is not eating well. Current Medications Current Medications Current Medications: Current Medications Generic Name Dose Route Start Last Admin Trade Name Falguni PRN Reason Stop Dose Admin Acetaminophen 650 mg 05/21/25 14:24 09/20/25 21:18 Acetaminophen 325 Mg Tablet PO 650 mg Q4HR PRN Administration Pain 1 to 4, or Fever Apixaban 2.5 mg 05/29/25 21:00 09/21/25 08:28 Apixaban 2.5 Mg Tablet PO 2.5 mg BID WEST Administration Azithromycin 250 mg 09/20/25 09:00 09/21/25 08:28 Azithromycin 250 Mg Tablet PO 09/23/25 09:01 250 mg DAILY WEST Administration Clonidine HCl 1 patch 09/12/25 12:00 09/19/25 12:42 Clonidine 0.2 Mg Patch TOP 1 patch Q7D WEST Administration Cyclobenzaprine HCl 10 mg 09/16/25 21:00 09/20/25 21:18 Cyclobenzaprine 10 Mg Tablet PO 10 mg HS WEST Administration Cyclobenzaprine HCl 5 mg 09/16/25 11:14 09/19/25 10:05 Cyclobenzaprine 10 Mg Tablet PO 5 mg BID PRN Administration Spasms Diclofenac Sodium 2 gm 09/19/25 14:31 09/20/25 18:05 Diclofenac Sodium 1% Gel 50 Gm Tube TOP 2 gm QID PRN Administration Mild Pain (Level 1-3) Docusate Sodium 250 - 500 mg 07/02/25 10:35 09/14/25 08:31 Docusate Sodium 250 Mg Capsule PO 250 mg DAILY PRN Administration Constipation Polyethylene Glycol 17 gm 07/02/25 10:34 09/17/25 08:39 Polyethylene Glycol 3350 17 Gm Packet PO 17 gm DAILY PRN Administration Constipation Multivit/Folic Acid/Iron 1 tab 05/25/25 08:00 09/21/25 08:28 Vitamin Tablet PO 1 tab DAILYWM WEST Administration Tamsulosin HCl 0.4 mg 08/10/25 09:00 09/21/25 08:28 Tamsulosin 0.4 Mg Capsule PO 0.4 mg DAILY WEST Administration Zinc Oxide 113 gm 06/28/25 12:00 09/21/25 02:25 Cod Liver Oil/Zinc Oxide 113 Gm Tube TOP 1 applic PRN PRN Administration Skin Care Objective Vital Signs/Intake & Output Reviewed Vital Signs: Yes Vital Signs: Vital Signs x48h Temp Pulse Resp BP BP Pulse Ox 09/21/25 16:17 37.0 C 118 H 16 128/95 H 92 09/21/25 09:20 36.9 C 109 H 18 129/85 94 Intake & Output: Intake & Output 09/18/25 09/19/25 09/20/25 09/21/25 23:59 23:59 22:59 23:59 Intake Total 960 / 960 1230 / 1230 1317 / 1317 1177 / 1177 Balance 960 / 960 1230 / 1230 1317 / 1317 1177 / 1177 Weight (kg) 49.5 kg Objective General Appearance: positive No acute distress and Other (awake and alert. ) Eyes Bilateral: positive Conjunctivae nml ENT: positive Oral lesions (less erythema) Neck: positive Nml inspection Respiratory: positive No respiratory distress Abdomen: positive No distention Back: positive Nml inspection Skin: positive Color nml, No rash and Dry Extremities: positive Other ( ) Neurologic/Psychiatric: positive Other (minimally verbal) Lab Results 09/19/25 12:56 09/19/25 12:56 Sepsis Event Note (H) Evaluation Current Stage of Sepsis: Ruled out Assessment/Plan Problem List (1) Abnormal vital signs: Impression: Tachycardia and hypertension. Clonidine has been effective at 0.2. Continue this med- should also be simple to do in the outpatient environment. Could also be related to dental infection, but does not seem to be improving with treatment of the infection. (2) Dental infection: Impression: No option to pull the tooth here. would use augmentin but anaphylaxis to PCN. therefore, macrolide treatment: azithromycin for 5 days. considered keflex plus flagyl, but more doses per day. She is day 3/5 zithromax. (3) Polysubstance abuse: Impression: She has been in the hospital since 05/13/2025 UDS on presentation was positive for opiates, amphetamine, methamphetamine, cocaine She is out of the window for any acute withdrawal. She has not had any acute changes in her mental status for at least a week. (4) Altered mental status: Impression: Altered mentation likely secondary to polysubstance abuse UDS on presentation positive for opiates, amphetamine, methamphetamine, cocaine Patient was held in observation, and repeat CT and MRI were performed. MRI shows diffuse white matter hyperintense signal which may represent edema. Not the typical presentation of press Her altered mentation is not affected by her blood pressure, meaning it is not improved whenever her blood pressure is within normal limits Case discussed with neurology on 05/26, who recommended LP, but stated that this is likely sequela of hypoxic event from drug use. thiamine 500 mg IM 3 times daily started on 05 26,for 3 days, now on po thiamine daily 06/06 Daughter Ina made contact with RN. I also spoke with her, at this point, her mother's condition is sub acute. No need for interventions. 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 She is willing to assist with this, but neither she, nor her mother have a safe place to live. Qualifiers: Altered mental status type: stupor Qualified Code(s): R40.1 - Stupor (5) Pubic bone fracture: Impression: X-ray hip on 05/25 shows moderately displaced right inferior pubic ramus fracture with extension in the medial acetabular column and suspicion for extension to the pelvic ring. Case was discussed with on-call orthopedist, who reports this is nonoperative. She is full weightbearing as tolerated and will need a walker at discharge. If her mentation improves, we will order PT eval, currently not able to particpate with PT. She has been seen 1x for PT, no rehab potentential. (6) Malnutrition: Impression: Severe protein calorie malnutrition given obvious muscle wasting, loss of subcutaneous fat, bedridden. She is eating less these days, has become more choosy with what she will eat. BMI increased from 14.9 to 17.6. This is an improvement, but she is eating less well in recent days. Qualifiers: Malnutrition type: unspecified type Qualified Code(s): E46 - Unspecified protein-calorie malnutrition (7) Effusion, right knee: Impression: very mild. WBC and uric acid is normal. Will try voltaren gel and continue to monitor. This patient's diagnosis and treatment plan was discussed this AM with attending physician as a part of multi disciplinary rounding meeting. 09/21/25. non billable rounding, no significant changes made to her care today.
[2025-09-22] MEDS: DOXYCYCLINE 100 MG TABLET PO SCH (15:32)
[2025-09-22] MEDS: CLINDAMYCIN 150 MG CAPSULE PO SCH (15:39)
--- NOTE | 2025-09-22 16:10 | PROVIDER PROGRESS NOTE ---
Subjective Prog Note Date Prog Note Date: 09/22/25 Subjective Subjective: She is tearful today and appears to be in pain, but she is not able to tell me where she is hurting. She tells me " I want my mom". She has not been eating well. She was up to the chair last night. I observed her to be upright, sitting iwth her knees at 90 degrees and her legs in a dependent position. She appeared to have reasonable truncal stability. Current Medications Current Medications Current Medications: Current Medications Generic Name Dose Route Start Last Admin Trade Name Freq PRN Reason Stop Dose Admin Acetaminophen 650 mg 05/21/25 14:24 09/22/25 15:39 Acetaminophen 325 Mg Tablet PO 650 mg Q4HR PRN Administration Pain 1 to 4, or Fever Apixaban 2.5 mg 05/29/25 21:00 09/22/25 08:12 Apixaban 2.5 Mg Tablet PO 2.5 mg BID WEST Administration Clindamycin HCl 600 mg 09/22/25 13:00 09/22/25 15:39 Clindamycin 150 Mg Capsule PO 09/27/25 07:01 600 mg Q6H WEST Administration Clonidine HCl 1 patch 09/12/25 12:00 09/19/25 12:42 Clonidine 0.2 Mg Patch TOP 1 patch Q7D WEST Administration Cyclobenzaprine HCl 10 mg 09/16/25 21:00 09/21/25 21:47 Cyclobenzaprine 10 Mg Tablet PO 10 mg HS WEST Administration Cyclobenzaprine HCl 5 mg 09/16/25 11:14 09/22/25 01:37 Cyclobenzaprine 10 Mg Tablet PO 5 mg BID PRN Administration Spasms Diclofenac Sodium 2 gm 09/19/25 14:31 09/20/25 18:05 Diclofenac Sodium 1% Gel 50 Gm Tube TOP 2 gm QID PRN Administration Mild Pain (Level 1-3) Docusate Sodium 250 - 500 mg 07/02/25 10:35 09/14/25 08:31 Docusate Sodium 250 Mg Capsule PO 250 mg DAILY PRN Administration Constipation Polyethylene Glycol 17 gm 07/02/25 10:34 09/17/25 08:39 Polyethylene Glycol 3350 17 Gm Packet PO 17 gm DAILY PRN Administration Constipation Multivit/Folic Acid/Iron 1 tab 05/25/25 08:00 09/22/25 08:12 Vitamin Tablet PO 1 tab DAILYWM WEST Administration Tamsulosin HCl 0.4 mg 08/10/25 09:00 09/22/25 08:12 Tamsulosin 0.4 Mg Capsule PO 0.4 mg DAILY WEST Administration Zinc Oxide 113 gm 06/28/25 12:00 09/21/25 02:25 Cod Liver Oil/Zinc Oxide 113 Gm Tube TOP 1 applic PRN PRN Administration Skin Care Objective Vital Signs/Intake & Output Reviewed Vital Signs: Yes Vital Signs: Vital Signs x48h Temp Pulse Resp BP BP Pulse Ox 09/21/25 16:17 37.0 C 118 H 16 128/95 H 92 09/21/25 09:20 36.9 C 109 H 18 129/85 94 Intake & Output: Intake & Output 09/19/25 09/20/25 09/21/25 09/22/25 23:59 22:59 23:59 23:59 Intake Total 1230 / 1230 1317 / 1317 1737 / 1737 360 / 360 Balance 1230 / 1230 1317 / 1317 1737 / 1737 360 / 360 Weight (kg) 49.5 kg Objective General Appearance: positive Other (tearful, distressed. ) Eyes Bilateral: positive Conjunctivae nml ENT: positive Oral lesions (less erythema, but still swollen and tender to palpation at tooth in question (#21 or 22)) Neck: positive Nml inspection Respiratory: positive No respiratory distress and Breath sounds nml Cardiovascular: positive Regular rate & rhythm Abdomen: positive No distention Back: positive Nml inspection Skin: positive Color nml, No rash and Dry Extremities: positive No pedal edema and Other ( slight right knee effusion, no increasing cellulitis. ) Neurologic/Psychiatric: positive Other (minimally verbal) Lab Results 09/19/25 12:56 09/19/25 12:56 Sepsis Event Note (H) Evaluation Current Stage of Sepsis: Ruled out Assessment/Plan Problem List (1) Abnormal vital signs: Impression: Tachycardia and hypertension. Clonidine has been effective at 0.2. Continue this med- should also be simple to do in the outpatient environment. Selected Entries 09/21/25 16:17 09/22/25 07:57 Pulse Rate [Brachial] 118 H 112 H Blood Pressure [Left Brachial artery] 128/95 H Blood Pressure [Right Brachial artery] 134/91 H Could also be related to dental infection, but does not seem to be improving with treatment of the infection. Changing abx tx today (2) Dental infection: Impression: No option to pull the tooth here. would use augmentin but anaphylaxis to PCN. therefore, macrolide treatment: azithromycin for 5 days, discusssed further with pharmacy today, and changed treatment to Clindamycin considered keflex plus flagyl, but more doses per day. (3) Polysubstance abuse: Impression: She has been in the hospital since 05/13/2025 UDS on presentation was positive for opiates, amphetamine, methamphetamine, cocaine She is out of the window for any acute withdrawal. She has not had any acute changes in her mental status for at least a week. (4) Altered mental status: Impression: Altered mentation likely secondary to polysubstance abuse UDS on presentation positive for opiates, amphetamine, methamphetamine, cocaine Patient was held in observation, and repeat CT and MRI were performed. MRI shows diffuse white matter hyperintense signal which may represent edema. Not the typical presentation of press Her altered mentation is not affected by her blood pressure, meaning it is not improved whenever her blood pressure is within normal limits Case discussed with neurology on 05/26, who recommended LP, but stated that this is likely sequela of hypoxic event from drug use. thiamine 500 mg IM 3 times daily started on 05 26,for 3 days, now on po thiamine daily 06/06 Daughter Ina made contact with RN. I also spoke with her, at this point, her mother's condition is sub acute. No need for interventions. Ina is aware her mother needs snf care. She is willing to assist with this, but neither she, nor her mother have a safe place to live. Qualifiers: Altered mental status type: stupor Qualified Code(s): R40.1 - Stupor (5) Pubic bone fracture: Impression: X-ray hip on 05/25 shows moderately displaced right inferior pubic ramus fracture with extension in the medial acetabular column and suspicion for extension to the pelvic ring. Case was discussed with on-call orthopedist, who reports this is nonoperative. She is full weightbearing as tolerated and will need a walker at discharge. If her mentation improves, we will order PT eval, currently not able to particpate with PT. She has been seen 1x for PT, no rehab potentential. (6) Malnutrition: Impression: Severe protein calorie malnutrition given obvious muscle wasting, loss of subcutaneous fat, bedridden. She is eating less these days, has become more choosy with what she will eat. BMI increased from 14.9 to 17.6. This is an improvement, but she is eating less well in recent days. Qualifiers: Malnutrition type: unspecified type Qualified Code(s): E46 - Unspecified protein-calorie malnutrition (7) Effusion, right knee: Impression: very mild. WBC and uric acid is normal. Will try voltaren gel and continue to monitor. This patient's diagnosis and treatment plan was discussed this AM with attending physician as a part of multi disciplinary rounding meeting. I have spent 28 minutes in the care of this patient today. This includes time [id number],, adjustment of medications and evaluation of their effectiveness. 09/22/25: This patient remains medically clear for discharge. We are treating her for a dental infection which otherwise could be managed as an outpatient.
--- NOTE | 2025-09-23 14:02 | PROVIDER PROGRESS NOTE ---
Subjective Prog Note Date Prog Note Date: 09/23/25 Subjective Pt reports feeling: No change Current Medications Current Medications Current Medications: Current Medications Generic Name Dose Route Start Last Admin Trade Name Falguni PRN Reason Stop Dose Admin Acetaminophen 650 mg 05/21/25 14:24 09/22/25 15:39 Acetaminophen 325 Mg Tablet PO 650 mg Q4HR PRN Administration Pain 1 to 4, or Fever Apixaban 2.5 mg 05/29/25 21:00 09/23/25 08:10 Apixaban 2.5 Mg Tablet PO 2.5 mg BID WEST Administration Clindamycin HCl 600 mg 09/22/25 13:00 09/23/25 08:09 Clindamycin 150 Mg Capsule PO 09/27/25 07:01 600 mg Q6H WEST Administration Clonidine HCl 1 patch 09/12/25 12:00 09/19/25 12:42 Clonidine 0.2 Mg Patch TOP 1 patch Q7D WEST Administration Cyclobenzaprine HCl 10 mg 09/16/25 21:00 09/22/25 20:18 Cyclobenzaprine 10 Mg Tablet PO 10 mg HS WEST Administration Cyclobenzaprine HCl 5 mg 09/16/25 11:14 09/22/25 01:37 Cyclobenzaprine 10 Mg Tablet PO 5 mg BID PRN Administration Spasms Diclofenac Sodium 2 gm 09/19/25 14:31 09/20/25 18:05 Diclofenac Sodium 1% Gel 50 Gm Tube TOP 2 gm QID PRN Administration Mild Pain (Level 1-3) Docusate Sodium 250 - 500 mg 07/02/25 10:35 09/14/25 08:31 Docusate Sodium 250 Mg Capsule PO 250 mg DAILY PRN Administration Constipation Polyethylene Glycol 17 gm 07/02/25 10:34 09/17/25 08:39 Polyethylene Glycol 3350 17 Gm Packet PO 17 gm DAILY PRN Administration Constipation Multivit/Folic Acid/Iron 1 tab 05/25/25 08:00 09/23/25 08:10 Vitamin Tablet PO 1 tab DAILYWM WEST Administration Tamsulosin HCl 0.4 mg 08/10/25 09:00 09/23/25 08:10 Tamsulosin 0.4 Mg Capsule PO 0.4 mg DAILY WEST Administration Zinc Oxide 113 gm 06/28/25 12:00 09/21/25 02:25 Cod Liver Oil/Zinc Oxide 113 Gm Tube TOP 1 applic PRN PRN Administration Skin Care Objective Vital Signs/Intake & Output Reviewed Vital Signs: Yes Vital Signs: Vital Signs x48h Temp Pulse Resp BP Pulse Ox 09/23/25 08:35 97.7 F 117 H 16 147/97 H 91 L Intake & Output: Intake & Output 09/20/25 09/21/25 09/22/25 09/23/25 22:59 23:59 23:59 23:59 Intake Total 1317 / 1317 1737 / 1737 700 / 700 240 / 240 Balance 1317 / 1317 1737 / 1737 700 / 700 240 / 240 Objective General Appearance: positive Other (tearful, distressed. ) Eyes Bilateral: positive Conjunctivae nml ENT: positive Oral lesions (less erythema, but still swollen and tender to palpation at tooth in question (#21 or 22)) Neck: positive Nml inspection Respiratory: positive No respiratory distress and Breath sounds nml Cardiovascular: positive Regular rate & rhythm Abdomen: positive No distention Back: positive Nml inspection Skin: positive Color nml, No rash and Dry Extremities: positive No pedal edema and Other ( slight right knee effusion, no increasing cellulitis. ) Neurologic/Psychiatric: positive Other (minimally verbal) Lab Results 09/19/25 12:56 09/19/25 12:56 Sepsis Event Note (H) Evaluation Current Stage of Sepsis: Ruled out Assessment/Plan Problem List (1) Abnormal vital signs: Impression: Tachycardia and hypertension. Clonidine has been effective at 0.2. Continue this med (2) Dental infection: Impression: Continue medical management with clindamycin. If this is unsuccessful, we will reach out to [facility] to see if they can pull the tooth (3) Polysubstance abuse: Impression: She has been in the hospital since 05/13/2025 UDS on presentation was positive for opiates, amphetamine, methamphetamine, cocaine She is out of the window for any acute withdrawal. She has not had any acute changes in her mental status for at least a week. (4) Altered mental status: Impression: Altered mentation likely secondary to polysubstance abuse UDS on presentation positive for opiates, amphetamine, methamphetamine, cocaine Patient was held in observation, and repeat CT and MRI were performed. MRI shows diffuse white matter hyperintense signal which may represent edema. Not the typical presentation of press Her altered mentation is not affected by her blood pressure, meaning it is not improved whenever her blood pressure is within normal limits Case discussed with neurology on 05/26, who recommended LP, but stated that this is likely sequela of hypoxic event from drug use. thiamine 500 mg IM 3 times daily started on 05 26,for 3 days, now on po thiamine daily 06/06 Daughter Ina made contact with RN. I also spoke with her, at this point, her mother's condition is sub acute. No need for interventions. Ina is aware her mother needs shelter care. She is willing to assist with this, but neither she, nor her mother have a safe place to live. Qualifiers: Altered mental status type: stupor Qualified Code(s): R40.1 - Stupor (5) Pubic bone fracture: Impression: X-ray hip on 05/25 shows moderately displaced right inferior pubic ramus fracture with extension in the medial acetabular column and suspicion for extension to the pelvic ring. Case was discussed with on-call orthopedist, who reports this is nonoperative. She is full weightbearing as tolerated and will need a walker at discharge. If her mentation improves, we will order PT jesús, currently not able to particpate with PT. She has been seen 1x for PT, no rehab potentential. (6) Malnutrition: Impression: Severe protein calorie malnutrition given obvious muscle wasting, loss of subcutaneous fat, bedridden. She is eating less these days, has become more choosy with what she will eat. BMI increased from 14.9 to 17.6. This is an improvement, but she is eating less well in recent days. Qualifiers: Malnutrition type: unspecified type Qualified Code(s): E46 - Unspecified protein-calorie malnutrition (7) Effusion, right knee: Impression: very mild. WBC and uric acid is normal. Will try voltaren gel and continue to monitor. This patient's diagnosis and treatment plan was discussed this AM with attending physician as a part of multi disciplinary rounding meeting. I have spent 28 minutes in the care of this patient today. This includes time [id number],, adjustment of medications and evaluation of their effectiveness. 09/23/25: This patient remains medically clear for discharge. We are treating her for a dental infection which otherwise could be managed as an outpatient.
--- NOTE | 2025-09-24 13:06 | PROVIDER PROGRESS NOTE ---
Subjective Prog Note Date Prog Note Date: 09/24/25 Subjective Pt reports feeling: No change Current Medications Current Medications Current Medications: Current Medications Generic Name Dose Route Start Last Admin Trade Name Falguni PRN Reason Stop Dose Admin Acetaminophen 650 mg 05/21/25 14:24 09/22/25 15:39 Acetaminophen 325 Mg Tablet PO 650 mg Q4HR PRN Administration Pain 1 to 4, or Fever Apixaban 2.5 mg 05/29/25 21:00 09/24/25 08:52 Apixaban 2.5 Mg Tablet PO 2.5 mg BID WEST Administration Clindamycin HCl 600 mg 09/22/25 13:00 09/24/25 08:53 Clindamycin 150 Mg Capsule PO 09/27/25 07:01 600 mg Q6H WEST Administration Clonidine HCl 1 patch 09/12/25 12:00 09/19/25 12:42 Clonidine 0.2 Mg Patch TOP 1 patch Q7D WEST Administration Cyclobenzaprine HCl 10 mg 09/16/25 21:00 09/23/25 20:17 Cyclobenzaprine 10 Mg Tablet PO 10 mg HS WEST Administration Cyclobenzaprine HCl 5 mg 09/16/25 11:14 09/24/25 08:53 Cyclobenzaprine 10 Mg Tablet PO 5 mg BID PRN Administration Spasms Diclofenac Sodium 2 gm 09/19/25 14:31 09/20/25 18:05 Diclofenac Sodium 1% Gel 50 Gm Tube TOP 2 gm QID PRN Administration Mild Pain (Level 1-3) Docusate Sodium 250 - 500 mg 07/02/25 10:35 09/14/25 08:31 Docusate Sodium 250 Mg Capsule PO 250 mg DAILY PRN Administration Constipation Polyethylene Glycol 17 gm 07/02/25 10:34 09/17/25 08:39 Polyethylene Glycol 3350 17 Gm Packet PO 17 gm DAILY PRN Administration Constipation Multivit/Folic Acid/Iron 1 tab 05/25/25 08:00 09/24/25 08:52 Vitamin Tablet PO 1 tab DAILYWM WEST Administration Tamsulosin HCl 0.4 mg 08/10/25 09:00 09/24/25 08:53 Tamsulosin 0.4 Mg Capsule PO 0.4 mg DAILY WEST Administration Zinc Oxide 113 gm 06/28/25 12:00 09/21/25 02:25 Cod Liver Oil/Zinc Oxide 113 Gm Tube TOP 1 applic PRN PRN Administration Skin Care Objective Vital Signs/Intake & Output Reviewed Vital Signs: Yes Vital Signs: Vital Signs x48h Temp Pulse Resp BP Pulse Ox 09/24/25 08:18 97.5 F L 127 H 24 153/93 H 93 Intake & Output: Intake & Output 09/21/25 09/22/25 09/23/25 09/24/25 23:59 23:59 23:59 23:59 Intake Total 1737 / 1737 700 / 700 600 / 600 360 / 360 Balance 1737 / 1737 700 / 700 600 / 600 360 / 360 Objective General Appearance: positive No acute distress Eyes Bilateral: positive Conjunctivae nml ENT: positive Oral lesions Neck: positive Nml inspection Respiratory: positive No respiratory distress and Breath sounds nml Cardiovascular: positive Regular rate & rhythm Abdomen: positive No distention Back: positive Nml inspection Skin: positive Color nml, No rash and Dry Extremities: positive No pedal edema and Other ( slight right knee effusion, no increasing cellulitis. ) Neurologic/Psychiatric: positive Other (minimally verbal) Lab Results 09/19/25 12:56 09/19/25 12:56 Sepsis Event Note (H) Evaluation Current Stage of Sepsis: Ruled out Assessment/Plan Problem List (1) Abnormal vital signs: Impression: Tachycardia and hypertension. Clonidine has been effective at 0.2. Continue this med (2) Dental infection: Impression: Continue medical management with clindamycin. If this is unsuccessful, we will reach out to [facility] to see if they can pull the tooth (3) Polysubstance abuse: Impression: She has been in the hospital since 05/13/2025 UDS on presentation was positive for opiates, amphetamine, methamphetamine, cocaine She is out of the window for any acute withdrawal. She has not had any acute changes in her mental status for at least a week. (4) Altered mental status: Impression: Altered mentation likely secondary to polysubstance abuse UDS on presentation positive for opiates, amphetamine, methamphetamine, cocaine Patient was held in observation, and repeat CT and MRI were performed. MRI shows diffuse white matter hyperintense signal which may represent edema. Not the typical presentation of press Her altered mentation is not affected by her blood pressure, meaning it is not improved whenever her blood pressure is within normal limits Case discussed with neurology on 05/26, who recommended LP, but stated that this is likely sequela of hypoxic event from drug use. thiamine 500 mg IM 3 times daily started on 05 26,for 3 days, now on po thiamine daily 06/06 Daughter Ina made contact with RN. I also spoke with her, at this point, her mother's condition is sub acute. No need for interventions. Ina is aware her mother needs fci care. She is willing to assist with this, but neither she, nor her mother have a safe place to live. Qualifiers: Altered mental status type: stupor Qualified Code(s): R40.1 - Stupor (5) Pubic bone fracture: Impression: X-ray hip on 05/25 shows moderately displaced right inferior pubic ramus fracture with extension in the medial acetabular column and suspicion for extension to the pelvic ring. Case was discussed with on-call orthopedist, who reports this is nonoperative. She is full weightbearing as tolerated and will need a walker at discharge. If her mentation improves, we will order PT eval, currently not able to particpate with PT. She has been seen 1x for PT, no rehab potentential. (6) Malnutrition: Impression: Severe protein calorie malnutrition given obvious muscle wasting, loss of subcutaneous fat, bedridden. She is eating less these days, has become more choosy with what she will eat. BMI increased from 14.9 to 17.6. This is an improvement, but she is eating less well in recent days. Qualifiers: Malnutrition type: unspecified type Qualified Code(s): E46 - Unspecified protein-calorie malnutrition (7) Effusion, right knee: Impression: very mild. WBC and uric acid is normal. Will try voltaren gel and continue to monitor. This patient's diagnosis and treatment plan was discussed this AM with attending physician as a part of multi disciplinary rounding meeting. I have spent 28 minutes in the care of this patient today. This includes time [id number],, adjustment of medications and evaluation of their effectiveness. 09/24/25: This patient remains medically clear for discharge. We are treating her for a dental infection which otherwise could be managed as an outpatient.
--- NOTE | 2025-09-25 11:55 | PROVIDER PROGRESS NOTE ---
Subjective Prog Note Date Prog Note Date: 09/25/25 Subjective Pt reports feeling: No change Current Medications Current Medications Current Medications: Current Medications Generic Name Dose Route Start Last Admin Trade Name Falguni PRN Reason Stop Dose Admin Acetaminophen 650 mg 05/21/25 14:24 09/24/25 20:38 Acetaminophen 325 Mg Tablet PO 650 mg Q4HR PRN Administration Pain 1 to 4, or Fever Apixaban 2.5 mg 05/29/25 21:00 09/25/25 09:16 Apixaban 2.5 Mg Tablet PO 2.5 mg BID WEST Administration Clindamycin HCl 600 mg 09/22/25 13:00 09/25/25 06:22 Clindamycin 150 Mg Capsule PO 09/27/25 07:01 600 mg Q6H WEST Administration Clonidine HCl 1 patch 09/12/25 12:00 09/19/25 12:42 Clonidine 0.2 Mg Patch TOP 1 patch Q7D WEST Administration Cyclobenzaprine HCl 10 mg 09/16/25 21:00 09/24/25 20:25 Cyclobenzaprine 10 Mg Tablet PO 10 mg HS WEST Administration Cyclobenzaprine HCl 5 mg 09/16/25 11:14 09/25/25 09:17 Cyclobenzaprine 10 Mg Tablet PO 5 mg BID PRN Administration Spasms Diclofenac Sodium 2 gm 09/19/25 14:31 09/20/25 18:05 Diclofenac Sodium 1% Gel 50 Gm Tube TOP 2 gm QID PRN Administration Mild Pain (Level 1-3) Docusate Sodium 250 - 500 mg 07/02/25 10:35 09/14/25 08:31 Docusate Sodium 250 Mg Capsule PO 250 mg DAILY PRN Administration Constipation Polyethylene Glycol 17 gm 07/02/25 10:34 09/25/25 09:16 Polyethylene Glycol 3350 17 Gm Packet PO 17 gm DAILY PRN Administration Constipation Multivit/Folic Acid/Iron 1 tab 05/25/25 08:00 09/25/25 09:16 Vitamin Tablet PO 1 tab DAILYWM WEST Administration Tamsulosin HCl 0.4 mg 08/10/25 09:00 09/25/25 09:17 Tamsulosin 0.4 Mg Capsule PO 0.4 mg DAILY WEST Administration Zinc Oxide 113 gm 06/28/25 12:00 09/21/25 02:25 Cod Liver Oil/Zinc Oxide 113 Gm Tube TOP 1 applic PRN PRN Administration Skin Care Objective Vital Signs/Intake & Output Reviewed Vital Signs: Yes Vital Signs: Vital Signs x48h Temp Pulse Resp BP Pulse Ox 09/25/25 08:20 97.7 F 124 H 20 146/87 H 94 Intake & Output: Intake & Output 09/22/25 09/23/25 09/24/25 09/25/25 23:59 23:59 23:59 23:59 Intake Total 700 / 700 600 / 600 1660 / 1660 477 / 477 Balance 700 / 700 600 / 600 1660 / 1660 477 / 477 Objective General Appearance: positive No acute distress Eyes Bilateral: positive Conjunctivae nml ENT: positive Oral lesions Neck: positive Nml inspection Respiratory: positive No respiratory distress and Breath sounds nml Cardiovascular: positive Regular rate & rhythm Abdomen: positive No distention Back: positive Nml inspection Skin: positive Color nml, No rash and Dry Extremities: positive No pedal edema and Other ( slight right knee effusion, no increasing cellulitis. ) Neurologic/Psychiatric: positive Other (minimally verbal) Lab Results 09/19/25 12:56 09/19/25 12:56 Sepsis Event Note (H) Evaluation Current Stage of Sepsis: Ruled out Assessment/Plan Problem List (1) Abnormal vital signs: Impression: Tachycardia and hypertension. Clonidine has been effective at 0.2. Continue this med (2) Dental infection: Impression: Continue medical management with clindamycin. If this is unsuccessful, we will reach out to [facility] to see if they can pull the tooth (3) Polysubstance abuse: Impression: She has been in the hospital since 05/13/2025 UDS on presentation was positive for opiates, amphetamine, methamphetamine, cocaine She is out of the window for any acute withdrawal. She has not had any acute changes in her mental status for at least a week. (4) Altered mental status: Impression: Altered mentation likely secondary to polysubstance abuse UDS on presentation positive for opiates, amphetamine, methamphetamine, cocaine Patient was held in observation, and repeat CT and MRI were performed. MRI shows diffuse white matter hyperintense signal which may represent edema. Not the typical presentation of press Her altered mentation is not affected by her blood pressure, meaning it is not improved whenever her blood pressure is within normal limits Case discussed with neurology on 05/26, who recommended LP, but stated that this is likely sequela of hypoxic event from drug use. thiamine 500 mg IM 3 times daily started on 05 26,for 3 days, now on po thiamine daily 06/06 Daughter Ina made contact with RN. I also spoke with her, at this point, her mother's condition is sub acute. No need for interventions. Ina is aware her mother needs salvage determiner care. She is willing to assist with this, but neither she, nor her mother have a safe place to live. Qualifiers: Altered mental status type: stupor Qualified Code(s): R40.1 - Stupor (5) Pubic bone fracture: Impression: X-ray hip on 05/25 shows moderately displaced right inferior pubic ramus fracture with extension in the medial acetabular column and suspicion for extension to the pelvic ring. Case was discussed with on-call orthopedist, who reports this is nonoperative. She is full weightbearing as tolerated and will need a walker at discharge. If her mentation improves, we will order PT eval, currently not able to particpate with PT. She has been seen 1x for PT, no rehab potentential. (6) Malnutrition: Impression: Severe protein calorie malnutrition given obvious muscle wasting, loss of subcutaneous fat, bedridden. She is eating less these days, has become more choosy with what she will eat. BMI increased from 14.9 to 17.6. This is an improvement, but she is eating less well in recent days. Qualifiers: Malnutrition type: unspecified type Qualified Code(s): E46 - Unspecified protein-calorie malnutrition (7) Effusion, right knee: Impression: very mild. WBC and uric acid is normal. Will try voltaren gel and continue to monitor. This patient's diagnosis and treatment plan was discussed this AM with attending physician as a part of multi disciplinary rounding meeting. I have spent 28 minutes in the care of this patient today. This includes time [id number],, adjustment of medications and evaluation of their effectiveness. 09/25/25: This patient remains medically clear for discharge. We are treating her for a dental infection which otherwise could be managed as an outpatient.
--- NOTE | 2025-09-26 12:10 | PROVIDER PROGRESS NOTE ---
Subjective Prog Note Date Prog Note Date: 09/26/25 Subjective Pt reports feeling: No change Current Medications Current Medications Current Medications: Current Medications Generic Name Dose Route Start Last Admin Trade Name Falguni PRN Reason Stop Dose Admin Acetaminophen 650 mg 05/21/25 14:24 09/26/25 08:16 Acetaminophen 325 Mg Tablet PO 650 mg Q4HR PRN Administration Pain 1 to 4, or Fever Apixaban 2.5 mg 05/29/25 21:00 09/26/25 08:16 Apixaban 2.5 Mg Tablet PO 2.5 mg BID WEST Administration Clindamycin HCl 600 mg 09/22/25 13:00 09/26/25 07:14 Clindamycin 150 Mg Capsule PO 09/27/25 07:01 600 mg Q6H WEST Administration Clonidine HCl 1 patch 09/12/25 12:00 09/19/25 12:42 Clonidine 0.2 Mg Patch TOP 1 patch Q7D WEST Administration Cyclobenzaprine HCl 10 mg 09/16/25 21:00 09/25/25 21:02 Cyclobenzaprine 10 Mg Tablet PO 10 mg HS WEST Administration Cyclobenzaprine HCl 5 mg 09/16/25 11:14 09/26/25 08:16 Cyclobenzaprine 10 Mg Tablet PO 5 mg BID PRN Administration Spasms Diclofenac Sodium 2 gm 09/19/25 14:31 09/26/25 08:16 Diclofenac Sodium 1% Gel 50 Gm Tube TOP 2 gm QID PRN Administration Mild Pain (Level 1-3) Docusate Sodium 250 - 500 mg 07/02/25 10:35 09/14/25 08:31 Docusate Sodium 250 Mg Capsule PO 250 mg DAILY PRN Administration Constipation Polyethylene Glycol 17 gm 07/02/25 10:34 09/26/25 08:15 Polyethylene Glycol 3350 17 Gm Packet PO 17 gm DAILY PRN Administration Constipation Multivit/Folic Acid/Iron 1 tab 05/25/25 08:00 09/26/25 08:16 Vitamin Tablet PO 1 tab DAILYWM WEST Administration Tamsulosin HCl 0.4 mg 08/10/25 09:00 09/26/25 08:16 Tamsulosin 0.4 Mg Capsule PO 0.4 mg DAILY WEST Administration Zinc Oxide 113 gm 06/28/25 12:00 09/26/25 08:17 Cod Liver Oil/Zinc Oxide 113 Gm Tube TOP 1 applic PRN PRN Administration Skin Care Objective Vital Signs/Intake & Output Reviewed Vital Signs: Yes Vital Signs: Vital Signs x48h Temp Pulse Resp BP Pulse Ox 09/26/25 08:57 97.7 F 117 H 16 122/84 96 Intake & Output: Intake & Output 09/23/25 09/24/25 09/25/25 09/26/25 23:59 23:59 23:59 23:59 Intake Total 600 / 600 1660 / 1660 937 / 937 100 / 100 Balance 600 / 600 1660 / 1660 937 / 937 100 / 100 Objective General Appearance: positive No acute distress Eyes Bilateral: positive Conjunctivae nml ENT: positive Oral lesions Neck: positive Nml inspection Respiratory: positive No respiratory distress and Breath sounds nml Cardiovascular: positive Regular rate & rhythm Abdomen: positive No distention Back: positive Nml inspection Skin: positive Color nml, No rash and Dry Extremities: positive No pedal edema Neurologic/Psychiatric: positive Other (minimally verbal) Lab Results 09/19/25 12:56 09/19/25 12:56 Sepsis Event Note (H) Evaluation Current Stage of Sepsis: Ruled out Assessment/Plan Problem List (1) Abnormal vital signs: Impression: Tachycardia and hypertension. Clonidine has been effective at 0.2. Continue this med (2) Dental infection: Impression: Continue medical management with clindamycin. If this is unsuccessful, we will reach out to [facility] to see if they can pull the tooth (3) Polysubstance abuse: Impression: She has been in the hospital since 05/13/2025 UDS on presentation was positive for opiates, amphetamine, methamphetamine, cocaine She is out of the window for any acute withdrawal. She has not had any acute changes in her mental status for at least a week. (4) Altered mental status: Impression: Altered mentation likely secondary to polysubstance abuse UDS on presentation positive for opiates, amphetamine, methamphetamine, cocaine Patient was held in observation, and repeat CT and MRI were performed. MRI shows diffuse white matter hyperintense signal which may represent edema. Not the typical presentation of press Her altered mentation is not affected by her blood pressure, meaning it is not improved whenever her blood pressure is within normal limits Case discussed with neurology on 05/26, who recommended LP, but stated that this is likely sequela of hypoxic event from drug use. thiamine 500 mg IM 3 times daily started on 05 26,for 3 days, now on po thiamine daily 06/06 Daughter Ina made contact with RN. I also spoke with her, at this point, her mother's condition is sub acute. No need for interventions. Ina is aware her mother needs long distance operator care. She is willing to assist with this, but neither she, nor her mother have a safe place to live. Qualifiers: Altered mental status type: stupor Qualified Code(s): R40.1 - Stupor (5) Pubic bone fracture: Impression: X-ray hip on 05/25 shows moderately displaced right inferior pubic ramus fracture with extension in the medial acetabular column and suspicion for extension to the pelvic ring. Case was discussed with on-call orthopedist, who reports this is nonoperative. She is full weightbearing as tolerated and will need a walker at discharge. If her mentation improves, we will order PT eval, currently not able to particpate with PT. She has been seen 1x for PT, no rehab potentential. (6) Malnutrition: Impression: Severe protein calorie malnutrition given obvious muscle wasting, loss of subcutaneous fat, bedridden. She is eating less these days, has become more choosy with what she will eat. BMI increased from 14.9 to 17.6. This is an improvement, but she is eating less well in recent days. Qualifiers: Malnutrition type: unspecified type Qualified Code(s): E46 - Unspecified protein-calorie malnutrition (7) Effusion, right knee: Impression: very mild. WBC and uric acid is normal. Will try voltaren gel and continue to monitor. This patient's diagnosis and treatment plan was discussed this AM with attending physician as a part of multi disciplinary rounding meeting. I have spent 28 minutes in the care of this patient today. This includes time [id number],, adjustment of medications and evaluation of their effectiveness. 09/26/25: This patient remains medically clear for discharge. We are treating her for a dental infection which otherwise could be managed as an outpatient.
[2025-09-27] MEDS: cloNIDine 0.2 MG PATCH TOP SCH (10:23)
--- NOTE | 2025-09-27 11:52 | PROVIDER PROGRESS NOTE ---
Subjective Prog Note Date Prog Note Date: 09/27/25 Subjective Pt reports feeling: No change Current Medications Current Medications Current Medications: Current Medications Generic Name Dose Route Start Last Admin Trade Name Falguni PRN Reason Stop Dose Admin Acetaminophen 650 mg 05/21/25 14:24 09/27/25 08:32 Acetaminophen 325 Mg Tablet PO 650 mg Q4HR PRN Administration Pain 1 to 4, or Fever Apixaban 2.5 mg 05/29/25 21:00 09/27/25 08:32 Apixaban 2.5 Mg Tablet PO 2.5 mg BID WEST Administration Clonidine HCl 1 patch 09/27/25 10:00 09/27/25 10:23 Clonidine 0.2 Mg Patch TOP 1 patch Q7D WEST Administration Cyclobenzaprine HCl 10 mg 09/16/25 21:00 09/26/25 20:28 Cyclobenzaprine 10 Mg Tablet PO 10 mg HS WEST Administration Cyclobenzaprine HCl 5 mg 09/16/25 11:14 09/27/25 08:32 Cyclobenzaprine 10 Mg Tablet PO 5 mg BID PRN Administration Spasms Diclofenac Sodium 2 gm 09/19/25 14:31 09/27/25 08:33 Diclofenac Sodium 1% Gel 50 Gm Tube TOP 2 gm QID PRN Administration Mild Pain (Level 1-3) Docusate Sodium 250 - 500 mg 07/02/25 10:35 09/14/25 08:31 Docusate Sodium 250 Mg Capsule PO 250 mg DAILY PRN Administration Constipation Polyethylene Glycol 17 gm 07/02/25 10:34 09/26/25 08:15 Polyethylene Glycol 3350 17 Gm Packet PO 17 gm DAILY PRN Administration Constipation Multivit/Folic Acid/Iron 1 tab 05/25/25 08:00 09/27/25 08:32 Vitamin Tablet PO 1 tab DAILYWM WEST Administration Tamsulosin HCl 0.4 mg 08/10/25 09:00 09/27/25 08:32 Tamsulosin 0.4 Mg Capsule PO 0.4 mg DAILY WEST Administration Zinc Oxide 113 gm 06/28/25 12:00 09/27/25 08:33 Cod Liver Oil/Zinc Oxide 113 Gm Tube TOP 1 applic PRN PRN Administration Skin Care Objective Vital Signs/Intake & Output Reviewed Vital Signs: Yes Vital Signs: Vital Signs x48h Temp Pulse Resp BP Pulse Ox 09/27/25 09:00 98.1 F 120 H 18 132/84 H 94 Intake & Output: Intake & Output 09/24/25 09/25/25 09/26/25 09/27/25 23:59 23:59 23:59 23:59 Intake Total 1660 / 1660 937 / 937 1180 / 1180 957 / 957 Balance 1660 / 1660 937 / 937 1180 / 1180 957 / 957 Weight (kg) 48 kg Objective General Appearance: positive No acute distress Eyes Bilateral: positive Conjunctivae nml ENT: positive Oral lesions Neck: positive Nml inspection Respiratory: positive No respiratory distress and Breath sounds nml Cardiovascular: positive Regular rate & rhythm Abdomen: positive No distention Back: positive Nml inspection Skin: positive Color nml, No rash and Dry Extremities: positive No pedal edema Neurologic/Psychiatric: positive Other (minimally verbal) Lab Results 09/19/25 12:56 09/19/25 12:56 Sepsis Event Note (H) Evaluation Current Stage of Sepsis: Ruled out Assessment/Plan Problem List (1) Abnormal vital signs: Impression: Tachycardia and hypertension. Clonidine has been effective at 0.2. Continue this med (2) Dental infection: Impression: Continue medical management with clindamycin. If this is unsuccessful, we will reach out to [facility] to see if they can pull the tooth (3) Polysubstance abuse: Impression: She has been in the hospital since 05/13/2025 UDS on presentation was positive for opiates, amphetamine, methamphetamine, cocaine She is out of the window for any acute withdrawal. She has not had any acute changes in her mental status for at least a week. (4) Altered mental status: Impression: Altered mentation likely secondary to polysubstance abuse UDS on presentation positive for opiates, amphetamine, methamphetamine, cocaine Patient was held in observation, and repeat CT and MRI were performed. MRI shows diffuse white matter hyperintense signal which may represent edema. Not the typical presentation of press Her altered mentation is not affected by her blood pressure, meaning it is not improved whenever her blood pressure is within normal limits Case discussed with neurology on 05/26, who recommended LP, but stated that this is likely sequela of hypoxic event from drug use. thiamine 500 mg IM 3 times daily started on 05 26,for 3 days, now on po thiamine daily 06/06 Daughter Ina made contact with RN. I also spoke with her, at this point, her mother's condition is sub acute. No need for interventions. Ina is aware her mother needs meterman care. She is willing to assist with this, but neither she, nor her mother have a safe place to live. Qualifiers: Altered mental status type: stupor Qualified Code(s): R40.1 - Stupor (5) Pubic bone fracture: Impression: X-ray hip on 05/25 shows moderately displaced right inferior pubic ramus fracture with extension in the medial acetabular column and suspicion for extension to the pelvic ring. Case was discussed with on-call orthopedist, who reports this is nonoperative. She is full weightbearing as tolerated and will need a walker at discharge. If her mentation improves, we will order PT jesús, currently not able to particpate with PT. She has been seen 1x for PT, no rehab potentential. (6) Malnutrition: Impression: Severe protein calorie malnutrition given obvious muscle wasting, loss of subcutaneous fat, bedridden. She is eating less these days, has become more choosy with what she will eat. BMI increased from 14.9 to 17.6. This is an improvement, but she is eating less well in recent days. Qualifiers: Malnutrition type: unspecified type Qualified Code(s): E46 - Unspecified protein-calorie malnutrition (7) Effusion, right knee: Impression: very mild. WBC and uric acid is normal. Will try voltaren gel and continue to monitor. This patient's diagnosis and treatment plan was discussed this AM with attending physician as a part of multi disciplinary rounding meeting. I have spent 28 minutes in the care of this patient today. This includes time [id number],, adjustment of medications and evaluation of their effectiveness. 09/27/25: This patient remains medically clear for discharge. We are treating her for a dental infection which otherwise could be managed as an outpatient.
--- NOTE | 2025-09-28 12:42 | PROVIDER PROGRESS NOTE ---
Subjective Prog Note Date Prog Note Date: 09/28/25 Subjective Pt reports feeling: No change Current Medications Current Medications Current Medications: Current Medications Generic Name Dose Route Start Last Admin Trade Name Falguni PRN Reason Stop Dose Admin Acetaminophen 650 mg 05/21/25 14:24 09/28/25 09:15 Acetaminophen 325 Mg Tablet PO 650 mg Q4HR PRN Administration Pain 1 to 4, or Fever Apixaban 2.5 mg 05/29/25 21:00 09/28/25 09:14 Apixaban 2.5 Mg Tablet PO 2.5 mg BID WEST Administration Clonidine HCl 1 patch 09/27/25 10:00 09/27/25 10:23 Clonidine 0.2 Mg Patch TOP 1 patch Q7D WEST Administration Cyclobenzaprine HCl 10 mg 09/16/25 21:00 09/27/25 22:07 Cyclobenzaprine 10 Mg Tablet PO 10 mg HS WEST Administration Cyclobenzaprine HCl 5 mg 09/16/25 11:14 09/28/25 09:14 Cyclobenzaprine 10 Mg Tablet PO 5 mg BID PRN Administration Spasms Diclofenac Sodium 2 gm 09/19/25 14:31 09/28/25 09:15 Diclofenac Sodium 1% Gel 50 Gm Tube TOP 2 gm QID PRN Administration Mild Pain (Level 1-3) Docusate Sodium 250 - 500 mg 07/02/25 10:35 09/14/25 08:31 Docusate Sodium 250 Mg Capsule PO 250 mg DAILY PRN Administration Constipation Polyethylene Glycol 17 gm 07/02/25 10:34 09/26/25 08:15 Polyethylene Glycol 3350 17 Gm Packet PO 17 gm DAILY PRN Administration Constipation Multivit/Folic Acid/Iron 1 tab 05/25/25 08:00 09/28/25 09:14 Vitamin Tablet PO 1 tab DAILYWM WEST Administration Tamsulosin HCl 0.4 mg 08/10/25 09:00 09/28/25 09:26 Tamsulosin 0.4 Mg Capsule PO 0.4 mg DAILY WEST Administration Zinc Oxide 113 gm 06/28/25 12:00 09/28/25 09:15 Cod Liver Oil/Zinc Oxide 113 Gm Tube TOP 1 applic PRN PRN Administration Skin Care Objective Vital Signs/Intake & Output Reviewed Vital Signs: Yes Vital Signs: Vital Signs x48h Temp Pulse Resp BP Pulse Ox 11/10/25 08:31 97.7 F 77 16 128/95 H 95 Intake & Output: Intake & Output 09/25/25 09/26/25 09/27/25 09/28/25 23:59 23:59 23:59 23:59 Intake Total 937 / 937 1180 / 1180 1377 / 1377 240 / 240 Balance 937 / 937 1180 / 1180 1377 / 1377 240 / 240 Weight (kg) 48 kg Objective General Appearance: positive No acute distress Eyes Bilateral: positive Conjunctivae nml ENT: positive Oral lesions Neck: positive Nml inspection Respiratory: positive No respiratory distress and Breath sounds nml Cardiovascular: positive Regular rate & rhythm Abdomen: positive No distention Back: positive Nml inspection Skin: positive Color nml, No rash and Dry Extremities: positive No pedal edema Neurologic/Psychiatric: positive Other (minimally verbal) Lab Results 09/19/25 12:56 09/19/25 12:56 Sepsis Event Note (H) Evaluation Current Stage of Sepsis: Ruled out Assessment/Plan Problem List (1) Abnormal vital signs: Impression: Tachycardia and hypertension. Clonidine has been effective at 0.2. Continue this med (2) Dental infection: Impression: Continue medical management with clindamycin. If this is unsuccessful, we will reach out to [facility] to see if they can pull the tooth (3) Polysubstance abuse: Impression: She has been in the hospital since 05/13/2025 UDS on presentation was positive for opiates, amphetamine, methamphetamine, cocaine She is out of the window for any acute withdrawal. She has not had any acute changes in her mental status for at least a week. (4) Altered mental status: Impression: Altered mentation likely secondary to polysubstance abuse UDS on presentation positive for opiates, amphetamine, methamphetamine, cocaine Patient was held in observation, and repeat CT and MRI were performed. MRI shows diffuse white matter hyperintense signal which may represent edema. Not the typical presentation of press Her altered mentation is not affected by her blood pressure, meaning it is not improved whenever her blood pressure is within normal limits Case discussed with neurology on 05/26, who recommended LP, but stated that this is likely sequela of hypoxic event from drug use. thiamine 500 mg IM 3 times daily started on 05 26,for 3 days, now on po thiamine daily 06/06 Daughter Ina made contact with RN. I also spoke with her, at this point, her mother's condition is sub acute. No need for interventions. Ina is aware her mother needs senior living care. She is willing to assist with this, but neither she, nor her mother have a safe place to live. Qualifiers: Altered mental status type: stupor Qualified Code(s): R40.1 - Stupor (5) Pubic bone fracture: Impression: X-ray hip on 05/25 shows moderately displaced right inferior pubic ramus fracture with extension in the medial acetabular column and suspicion for extension to the pelvic ring. Case was discussed with on-call orthopedist, who reports this is nonoperative. She is full weightbearing as tolerated and will need a walker at discharge. If her mentation improves, we will order PT jesús, currently not able to particpate with PT. She has been seen 1x for PT, no rehab potentential. (6) Malnutrition: Impression: Severe protein calorie malnutrition given obvious muscle wasting, loss of subcutaneous fat, bedridden. She is eating less these days, has become more choosy with what she will eat. BMI increased from 14.9 to 17.6. This is an improvement, but she is eating less well in recent days. Qualifiers: Malnutrition type: unspecified type Qualified Code(s): E46 - Unspecified protein-calorie malnutrition (7) Effusion, right knee: Impression: very mild. WBC and uric acid is normal. Will try voltaren gel and continue to monitor. This patient's diagnosis and treatment plan was discussed this AM with attending physician as a part of multi disciplinary rounding meeting. I have spent 28 minutes in the care of this patient today. This includes time [id number],, adjustment of medications and evaluation of their effectiveness. 09/28/25: This patient remains medically clear for discharge. We are treating her for a dental infection which otherwise could be managed as an outpatient.
--- NOTE | 2025-09-29 12:23 | PROVIDER PROGRESS NOTE ---
Subjective Prog Note Date Prog Note Date: 09/29/25 Subjective Pt reports feeling: No change Current Medications Current Medications Current Medications: Current Medications Generic Name Dose Route Start Last Admin Trade Name Falguni PRN Reason Stop Dose Admin Acetaminophen 650 mg 05/21/25 14:24 09/28/25 09:15 Acetaminophen 325 Mg Tablet PO 650 mg Q4HR PRN Administration Pain 1 to 4, or Fever Apixaban 2.5 mg 05/29/25 21:00 09/29/25 08:35 Apixaban 2.5 Mg Tablet PO 2.5 mg BID WEST Administration Clonidine HCl 1 patch 09/27/25 10:00 09/27/25 10:23 Clonidine 0.2 Mg Patch TOP 1 patch Q7D WEST Administration Cyclobenzaprine HCl 10 mg 09/16/25 21:00 09/28/25 20:48 Cyclobenzaprine 10 Mg Tablet PO 10 mg HS WEST Administration Cyclobenzaprine HCl 5 mg 09/16/25 11:14 09/28/25 09:14 Cyclobenzaprine 10 Mg Tablet PO 5 mg BID PRN Administration Spasms Diclofenac Sodium 2 gm 09/19/25 14:31 09/28/25 09:15 Diclofenac Sodium 1% Gel 50 Gm Tube TOP 2 gm QID PRN Administration Mild Pain (Level 1-3) Docusate Sodium 250 - 500 mg 07/02/25 10:35 09/14/25 08:31 Docusate Sodium 250 Mg Capsule PO 250 mg DAILY PRN Administration Constipation Mirtazapine 15 mg 09/29/25 21:00 Mirtazapine 15 Mg Tablet PO QPM WEST Polyethylene Glycol 17 gm 07/02/25 10:34 09/26/25 08:15 Polyethylene Glycol 3350 17 Gm Packet PO 17 gm DAILY PRN Administration Constipation Multivit/Folic Acid/Iron 1 tab 05/25/25 08:00 09/29/25 08:35 Vitamin Tablet PO 1 tab DAILYWM WEST Administration Tamsulosin HCl 0.4 mg 08/10/25 09:00 09/29/25 08:35 Tamsulosin 0.4 Mg Capsule PO 0.4 mg DAILY WEST Administration Zinc Oxide 113 gm 06/28/25 12:00 09/28/25 09:15 Cod Liver Oil/Zinc Oxide 113 Gm Tube TOP 1 applic PRN PRN Administration Skin Care Objective Vital Signs/Intake & Output Reviewed Vital Signs: Yes Vital Signs: Vital Signs x48h Temp Pulse Resp BP Pulse Ox 09/29/25 08:20 97.5 F L 103 H 20 127/90 98 Intake & Output: Intake & Output 09/26/25 09/27/25 09/28/25 09/29/25 23:59 23:59 23:59 23:59 Intake Total 1180 / 1180 1377 / 1377 1590 / 1590 600 / 600 Balance 1180 / 1180 1377 / 1377 1590 / 1590 600 / 600 Weight (kg) 48 kg 47.5 kg Objective General Appearance: positive No acute distress Eyes Bilateral: positive Conjunctivae nml ENT: positive Other (Poor dentition. Debris in the gumline) Neck: positive Nml inspection Respiratory: positive No respiratory distress and Breath sounds nml Cardiovascular: positive Regular rate & rhythm Abdomen: positive No distention Back: positive Nml inspection Skin: positive Color nml, No rash and Dry Extremities: positive No pedal edema Neurologic/Psychiatric: positive Other (minimally verbal) Lab Results 09/19/25 12:56 09/19/25 12:56 Sepsis Event Note (H) Evaluation Current Stage of Sepsis: Ruled out Assessment/Plan Problem List (1) Abnormal vital signs: Impression: Tachycardia and hypertension. Clonidine has been effective at 0.2. Continue this med (2) Dental infection: Impression: Completed course of clindamycin. No longer having pain around the affected teeth. Encouraging oral care (3) Polysubstance abuse: Impression: She has been in the hospital since 05/13/2025 UDS on presentation was positive for opiates, amphetamine, methamphetamine, cocaine She is out of the window for any acute withdrawal. She has not had any acute changes in her mental status for at least a week. (4) Altered mental status: Impression: Altered mentation likely secondary to polysubstance abuse UDS on presentation positive for opiates, amphetamine, methamphetamine, cocaine Patient was held in observation, and repeat CT and MRI were performed. MRI shows diffuse white matter hyperintense signal which may represent edema. Not the typical presentation of press Her altered mentation is not affected by her blood pressure, meaning it is not improved whenever her blood pressure is within normal limits Case discussed with neurology on 05/26, who recommended LP, but stated that this is likely sequela of hypoxic event from drug use. thiamine 500 mg IM 3 times daily started on 05 26,for 3 days, now on po thiamine daily 06/06 Daughter Ina made contact with RN. I also spoke with her, at this point, her mother's condition is sub acute. No need for interventions. Ina is aware her mother needs [facility]ci care. She is willing to assist with this, but neither she, nor her mother have a safe place to live. Qualifiers: Altered mental status type: stupor Qualified Code(s): R40.1 - Stupor (5) Pubic bone fracture: Impression: X-ray hip on 05/25 shows moderately displaced right inferior pubic ramus fracture with extension in the medial acetabular column and suspicion for extension to the pelvic ring. Case was discussed with on-call orthopedist, who reports this is nonoperative. She is full weightbearing as tolerated and will need a walker at discharge. If her mentation improves, we will order PT eval, currently not able to particpate with PT. She has been seen 1x for PT, no rehab potentential. (6) Malnutrition: Impression: Severe protein calorie malnutrition given obvious muscle wasting, loss of subcutaneous fat, bedridden. She is eating less these days, has become more choosy with what she will eat. BMI increased from 14.9 to 17.6. This is an improvement, but she is eating less well in recent days. Qualifiers: Malnutrition type: unspecified type Qualified Code(s): E46 - Unspecified protein-calorie malnutrition (7) Effusion, right knee: Impression: very mild. WBC and uric acid is normal. Will try voltaren gel and continue to monitor. This patient's diagnosis and treatment plan was discussed this AM with attending physician as a part of multi disciplinary rounding meeting. I have spent 28 minutes in the care of this patient today. This includes time [id number],, adjustment of medications and evaluation of their effectiveness. 09/29/25: This patient remains medically clear for discharge.
[2025-09-29] MEDS: MIRTAZAPINE 15 MG TABLET PO SCH (21:15)
--- NOTE | 2025-09-30 15:42 | PROVIDER PROGRESS NOTE ---
Subjective Prog Note Date Prog Note Date: 09/30/25 Subjective Subjective: She is in bed listening to music. She seems happy today. her mouth does not hurt and she has been eating, although not everything all of the time. She is giving me consistent yes and no answers that make sense today. Current Medications Current Medications Current Medications: Current Medications Generic Name Dose Route Start Last Admin Trade Name Falguni PRN Reason Stop Dose Admin Acetaminophen 650 mg 05/21/25 14:24 09/28/25 09:15 Acetaminophen 325 Mg Tablet PO 650 mg Q4HR PRN Administration Pain 1 to 4, or Fever Apixaban 2.5 mg 05/29/25 21:00 09/30/25 08:21 Apixaban 2.5 Mg Tablet PO 2.5 mg BID WEST Administration Clonidine HCl 1 patch 09/27/25 10:00 09/27/25 10:23 Clonidine 0.2 Mg Patch TOP 1 patch Q7D WEST Administration Cyclobenzaprine HCl 10 mg 09/16/25 21:00 09/29/25 21:15 Cyclobenzaprine 10 Mg Tablet PO 10 mg HS WEST Administration Cyclobenzaprine HCl 5 mg 09/16/25 11:14 09/28/25 09:14 Cyclobenzaprine 10 Mg Tablet PO 5 mg BID PRN Administration Spasms Diclofenac Sodium 2 gm 09/19/25 14:31 09/28/25 09:15 Diclofenac Sodium 1% Gel 50 Gm Tube TOP 2 gm QID PRN Administration Mild Pain (Level 1-3) Docusate Sodium 250 - 500 mg 07/02/25 10:35 09/14/25 08:31 Docusate Sodium 250 Mg Capsule PO 250 mg DAILY PRN Administration Constipation Mirtazapine 15 mg 09/29/25 21:00 09/29/25 21:15 Mirtazapine 15 Mg Tablet PO 15 mg QPM WEST Administration Polyethylene Glycol 17 gm 07/02/25 10:34 09/26/25 08:15 Polyethylene Glycol 3350 17 Gm Packet PO 17 gm DAILY PRN Administration Constipation Multivit/Folic Acid/Iron 1 tab 05/25/25 08:00 09/30/25 08:21 Vitamin Tablet PO 1 tab DAILYWM WEST Administration Tamsulosin HCl 0.4 mg 08/10/25 09:00 09/30/25 08:21 Tamsulosin 0.4 Mg Capsule PO 0.4 mg DAILY WEST Administration Zinc Oxide 113 gm 06/28/25 12:00 09/30/25 00:28 Cod Liver Oil/Zinc Oxide 113 Gm Tube TOP 1 applic PRN PRN Administration Skin Care Objective Vital Signs/Intake & Output Reviewed Vital Signs: Yes Vital Signs: Vital Signs x48h Temp Pulse Resp BP Pulse Ox 09/29/25 08:20 97.5 F L 103 H 20 127/90 98 Intake & Output: Intake & Output 09/27/25 09/28/25 09/29/25 09/30/25 23:59 23:59 23:59 23:59 Intake Total 1377 / 1377 1590 / 1590 1480 / 1480 1140 / 1140 Balance 1377 / 1377 1590 / 1590 1480 / 1480 1140 / 1140 Weight (kg) 47.5 kg Objective General Appearance: positive No acute distress Eyes Bilateral: positive Conjunctivae nml ENT: positive Other (Poor dentition. less inflammation around the tooth than previous, but remains with severe peridontal disease. ) Neck: positive Nml inspection Respiratory: positive No respiratory distress and Breath sounds nml Cardiovascular: positive Regular rate & rhythm Abdomen: positive No distention Back: positive Nml inspection Skin: positive Color nml, No rash and Dry Extremities: positive No pedal edema Neurologic/Psychiatric: positive Other (interactive today, but answering only yes/no questions. ) Lab Results 09/19/25 12:56 09/19/25 12:56 Sepsis Event Note (H) Evaluation Current Stage of Sepsis: Ruled out Assessment/Plan Problem List (1) Abnormal vital signs: Impression: Tachycardia and hypertension. Clonidine has been effective at 0.2. Continue this med Selected Entries 09/30/25 07:38 Pulse Rate [Brachial] 97 Blood Pressure [Right Ankle] 114/74 (2) Dental infection: Impression: Completed course of clindamycin. No longer having pain around the affected teeth. Encouraging oral care, she is eating again. (3) Polysubstance abuse: Impression: She has been in the hospital since 05/13/2025 UDS on presentation was positive for opiates, amphetamine, methamphetamine, cocaine She is out of the window for any acute withdrawal. She has not had any acute changes in her mental status for at least a week. (4) Altered mental status: Impression: Altered mentation likely secondary to polysubstance abuse UDS on presentation positive for opiates, amphetamine, methamphetamine, cocaine Patient was held in observation, and repeat CT and MRI were performed. MRI shows diffuse white matter hyperintense signal which may represent edema. Not the typical presentation of press Her altered mentation is not affected by her blood pressure, meaning it is not improved whenever her blood pressure is within normal limits Case discussed with neurology on 05/26, who recommended LP, but stated that this is likely sequela of hypoxic event from drug use. thiamine 500 mg IM 3 times daily started on 05 26,for 3 days, now on po thiamine daily 06/06 Daughter Ina made contact with RN. I also spoke with her, at this point, her mother's condition is sub acute. No need for interventions. Ina is aware her mother needs terminal carman care. She is willing to assist with this, but neither she, nor her mother have a safe place to live. Assisted in her personal care today, he hair is terribly matted in the back. Unable to work these tangles out. there are several inches of hair between the scalp and the mat. I was forced to trim out the mat today. Patient tolerated well, and although the cosmetic result is not good, she appears more comfortable. Qualifiers: Altered mental status type: stupor Qualified Code(s): R40.1 - Stupor (5) Pubic bone fracture: Impression: X-ray hip on 05/25 shows moderately displaced right inferior pubic ramus fracture with extension in the medial acetabular column and suspicion for extension to the pelvic ring. Case was discussed with on-call orthopedist, who reports this is nonoperative. She is full weightbearing as tolerated but has not ambulated in many months. Currently not able to particpate with PT. She has been seen 1x for PT, no rehab potential. (6) Malnutrition: Impression: Severe protein calorie malnutrition given obvious muscle wasting, loss of subcutaneous fat, bedridden. She is eating less these days, has become more choosy with what she will eat. BMI increased from 14.9 to 17.6, currently down to 16.9. Not sure if this is variation with the bed scale. Qualifiers: Malnutrition type: unspecified type Qualified Code(s): E46 - Unspecified protein-calorie malnutrition (7) Effusion, right knee: Impression: not worse, voltaren gel PRN This patient's diagnosis and treatment plan was discussed this AM with attending physician as a part of multi disciplinary rounding meeting. non billable rounding. Dispo: Court date 10/05, perspective [facility] in [place] when legal guardianship ,etc has been established. She will also need [facility] assessment. 09/30/25: This patient remains medically clear for discharge.
--- NOTE | 2025-10-01 13:33 | PROVIDER PROGRESS NOTE ---
Subjective Prog Note Date Prog Note Date: 10/01/25 Subjective Subjective: Calm and settled in bed. She is eating about 75% of meals. Current Medications Current Medications Current Medications: Current Medications Generic Name Dose Route Start Last Admin Trade Name Falguni PRN Reason Stop Dose Admin Acetaminophen 650 mg 05/21/25 14:24 09/28/25 09:15 Acetaminophen 325 Mg Tablet PO 650 mg Q4HR PRN Administration Pain 1 to 4, or Fever Apixaban 2.5 mg 05/29/25 21:00 10/01/25 08:11 Apixaban 2.5 Mg Tablet PO 2.5 mg BID WEST Administration Clonidine HCl 1 patch 09/27/25 10:00 09/27/25 10:23 Clonidine 0.2 Mg Patch TOP 1 patch Q7D WEST Administration Cyclobenzaprine HCl 10 mg 09/16/25 21:00 09/30/25 20:13 Cyclobenzaprine 10 Mg Tablet PO 10 mg HS WEST Administration Cyclobenzaprine HCl 5 mg 09/16/25 11:14 09/28/25 09:14 Cyclobenzaprine 10 Mg Tablet PO 5 mg BID PRN Administration Spasms Diclofenac Sodium 2 gm 09/19/25 14:31 10/01/25 01:28 Diclofenac Sodium 1% Gel 50 Gm Tube TOP 2 gm QID PRN Administration Mild Pain (Level 1-3) Docusate Sodium 250 - 500 mg 07/02/25 10:35 09/14/25 08:31 Docusate Sodium 250 Mg Capsule PO 250 mg DAILY PRN Administration Constipation Mirtazapine 15 mg 09/29/25 21:00 09/30/25 20:13 Mirtazapine 15 Mg Tablet PO 15 mg QPM WEST Administration Polyethylene Glycol 17 gm 07/02/25 10:34 09/26/25 08:15 Polyethylene Glycol 3350 17 Gm Packet PO 17 gm DAILY PRN Administration Constipation Multivit/Folic Acid/Iron 1 tab 05/25/25 08:00 10/01/25 08:11 Vitamin Tablet PO 1 tab DAILYWM WEST Administration Tamsulosin HCl 0.4 mg 08/10/25 09:00 10/01/25 08:11 Tamsulosin 0.4 Mg Capsule PO 0.4 mg DAILY WEST Administration Zinc Oxide 113 gm 06/28/25 12:00 10/01/25 01:29 Cod Liver Oil/Zinc Oxide 113 Gm Tube TOP 1 applic PRN PRN Administration Skin Care Objective Vital Signs/Intake & Output Reviewed Vital Signs: Yes Vital Signs: Vital Signs x48h Temp Pulse Resp BP Pulse Ox 10/01/25 07:17 36.3 C L 93 16 138/85 H 92 Intake & Output: Intake & Output 09/28/25 09/29/25 09/30/25 10/01/25 23:59 23:59 23:59 23:59 Intake Total 1590 / 1590 1480 / 1480 1840 / 1840 837 / 837 Balance 1590 / 1590 1480 / 1480 1840 / 1840 837 / 837 Weight (kg) 47.5 kg Objective General Appearance: positive No acute distress and Alert Eyes Bilateral: positive Normal inspection ENT: positive ENT inspection nml Neck: positive Nml inspection Respiratory: positive No respiratory distress Abdomen: positive No distention Skin: positive Color nml Extremities: positive Non-tender Neurologic/Psychiatric: positive Other (non verbal to me today) Lab Results 09/19/25 12:56 09/19/25 12:56 Sepsis Event Note (H) Evaluation Current Stage of Sepsis: Ruled out Assessment/Plan Problem List (1) Abnormal vital signs: Impression: Tachycardia and hypertension. Clonidine has been effective at 0.2. Continue this med Selected Entries 10/01/25 07:17 10/01/25 15:47 Pulse Rate [Radial] 93 115 H Blood Pressure [Right Ankle] 124/81 Blood Pressure [Right Brachial artery] 138/85 H (2) Dental infection: Impression: Completed course of clindamycin. No longer having pain around the affected teeth. Encouraging oral care, she is eating again. (3) Polysubstance abuse: Impression: She has been in the hospital since 05/13/2025 UDS on presentation was positive for opiates, amphetamine, methamphetamine, cocaine She is out of the window for any acute withdrawal. She has not had any acute changes in her mental status for at least a week. (4) Altered mental status: Impression: Altered mentation likely secondary to polysubstance abuse UDS on presentation positive for opiates, amphetamine, methamphetamine, cocaine Patient was held in observation, and repeat CT and MRI were performed. MRI shows diffuse white matter hyperintense signal which may represent edema. Not the typical presentation of press Her altered mentation is not affected by her blood pressure, meaning it is not improved whenever her blood pressure is within normal limits Case discussed with neurology on 05/26, who recommended LP, but stated that this is likely sequela of hypoxic event from drug use. thiamine 500 mg IM 3 times daily started on 05 26,for 3 days, now on po thiamine daily 06/06 Daughter Ina made contact with RN. I also spoke with her, at this point, her mother's condition is sub acute. No need for interventions. 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 She is willing to assist with this, but neither she, nor her mother have a safe place to live. Qualifiers: Altered mental status type: stupor Qualified Code(s): R40.1 - Stupor (5) Pubic bone fracture: Impression: X-ray hip on 05/25 shows moderately displaced right inferior pubic ramus fracture with extension in the medial acetabular column and suspicion for extension to the pelvic ring. Case was discussed with on-call orthopedist, who reports this is nonoperative. She is full weightbearing as tolerated but has not ambulated in many months. Currently not able to particpate with PT. She has been seen 1x for PT, no rehab potential. (6) Malnutrition: Impression: Severe protein calorie malnutrition given obvious muscle wasting, loss of subcutaneous fat, bedridden. She is eating less these days, has become more choosy with what she will eat. BMI increased from 14.9 to 17.6, currently down to 16.9. Not sure if this is variation with the bed scale. Qualifiers: Malnutrition type: unspecified type Qualified Code(s): E46 - Unspecified protein-calorie malnutrition (7) Effusion, right knee: Impression: not worse, voltaren gel PRN This patient's diagnosis and treatment plan was discussed this AM with attending physician as a part of multi disciplinary rounding meeting. non billable rounding. Dispo: Court date 10/05, [facility] in [place] when legal guardianship ,etc has been established. She will also need HCS assessment. 10/01/25: This patient remains medically clear for discharge.
--- NOTE | 2025-10-02 10:26 | PROVIDER PROGRESS NOTE ---
Subjective Prog Note Date Prog Note Date: 10/02/25 Subjective Subjective: oral intake is back down again. staff noticing that maybe she is having some pain. Current Medications Current Medications Current Medications: Current Medications Generic Name Dose Route Start Last Admin Trade Name Falguni PRN Reason Stop Dose Admin Acetaminophen 650 mg 05/21/25 14:24 09/28/25 09:15 Acetaminophen 325 Mg Tablet PO 650 mg Q4HR PRN Administration Pain 1 to 4, or Fever Apixaban 2.5 mg 05/29/25 21:00 10/02/25 08:38 Apixaban 2.5 Mg Tablet PO 2.5 mg BID WEST Administration Clonidine HCl 1 patch 09/27/25 10:00 09/27/25 10:23 Clonidine 0.2 Mg Patch TOP 1 patch Q7D WEST Administration Cyclobenzaprine HCl 10 mg 09/16/25 21:00 10/01/25 20:27 Cyclobenzaprine 10 Mg Tablet PO 10 mg HS WEST Administration Cyclobenzaprine HCl 5 mg 09/16/25 11:14 10/02/25 08:38 Cyclobenzaprine 10 Mg Tablet PO 5 mg BID PRN Administration Spasms Diclofenac Sodium 2 gm 09/19/25 14:31 10/01/25 01:28 Diclofenac Sodium 1% Gel 50 Gm Tube TOP 2 gm QID PRN Administration Mild Pain (Level 1-3) Docusate Sodium 250 - 500 mg 07/02/25 10:35 09/14/25 08:31 Docusate Sodium 250 Mg Capsule PO 250 mg DAILY PRN Administration Constipation Mirtazapine 15 mg 09/29/25 21:00 10/01/25 20:26 Mirtazapine 15 Mg Tablet PO 15 mg QPM WEST Administration Polyethylene Glycol 17 gm 07/02/25 10:34 09/26/25 08:15 Polyethylene Glycol 3350 17 Gm Packet PO 17 gm DAILY PRN Administration Constipation Multivit/Folic Acid/Iron 1 tab 05/25/25 08:00 10/02/25 08:37 Vitamin Tablet PO 1 tab DAILYWM WEST Administration Tamsulosin HCl 0.4 mg 08/10/25 09:00 10/02/25 08:37 Tamsulosin 0.4 Mg Capsule PO 0.4 mg DAILY WEST Administration Zinc Oxide 113 gm 06/28/25 12:00 10/02/25 08:38 Cod Liver Oil/Zinc Oxide 113 Gm Tube TOP 1 applic PRN PRN Administration Skin Care Objective Vital Signs/Intake & Output Reviewed Vital Signs: Yes Vital Signs: Vital Signs x48h Temp Pulse Resp BP Pulse Ox 10/02/25 08:39 36.6 C 108 H 18 119/88 96 Intake & Output: Intake & Output 09/29/25 09/30/25 10/01/25 10/02/25 23:59 23:59 23:59 23:59 Intake Total 1480 / 1480 1840 / 1840 1377 / 1377 Balance 1480 / 1480 1840 / 1840 1377 / 1377 Objective General Appearance: positive No acute distress and Alert Eyes Bilateral: positive Normal inspection ENT: positive Oral lesions (tooth #12 rotten to gumline, there is a small pointing abscess noted in the gumline. it is tender. ) Neck: positive Nml inspection Respiratory: positive No respiratory distress Cardiovascular: positive Regular rate & rhythm Abdomen: positive No distention Skin: positive Color nml Extremities: positive Non-tender Neurologic/Psychiatric: positive Other (non verbal to me today) Lab Results 09/19/25 12:56 09/19/25 12:56 Sepsis Event Note (H) Evaluation Current Stage of Sepsis: Ruled out Assessment/Plan Problem List (1) Abnormal vital signs: Impression: Tachycardia and hypertension. Clonidine has been effective at 0.2. Continue this med 10/01/25 07:17 10/01/25 15:47 Pulse Rate [Radial] 93 115 H Blood Pressure [Right Ankle] 124/81 Blood Pressure [Right Brachial artery] 138/85 H (2) Dental infection: Impression: Recurrent. She was on clindamycin starting on 09/22/2025 for 20 doses, finished on 09/27. Now less than a week after completing this she has a pointing abscess in the gumline. In the inpatient setting I am not sure there is much we can do about this. However, I have contacted our [facility] staff, Dr. Rizo, to see if he can offer any advice or support. (3) Polysubstance abuse: Impression: She has been in the hospital since 05/13/2025 UDS on presentation was positive for opiates, amphetamine, methamphetamine, cocaine She is out of the window for any acute withdrawal. She has not had any acute changes in her mental status for at least a week. (4) Altered mental status: Impression: Altered mentation likely secondary to polysubstance abuse UDS on presentation positive for opiates, amphetamine, methamphetamine, cocaine Patient was held in observation, and repeat CT and MRI were performed. MRI shows diffuse white matter hyperintense signal which may represent edema. Not the typical presentation of press Her altered mentation is not affected by her blood pressure, meaning it is not improved whenever her blood pressure is within normal limits Case discussed with neurology on 05/26, who recommended LP, but stated that this is likely sequela of hypoxic event from drug use. thiamine 500 mg IM 3 times daily started on 05 26,for 3 days, now on po thiamine daily 06/06 Daughter Ina made contact with RN. I also spoke with her, at this point, her mother's condition is sub acute. No need for interventions. 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 She is willing to assist with this, but neither she, nor her mother have a safe place to live. Qualifiers: Altered mental status type: stupor Qualified Code(s): R40.1 - Stupor (5) Pubic bone fracture: Impression: X-ray hip on 05/25 shows moderately displaced right inferior pubic ramus fracture with extension in the medial acetabular column and suspicion for extension to the pelvic ring. Case was discussed with on-call orthopedist, who reports this is nonoperative. She is full weightbearing as tolerated but has not ambulated in many months. Currently not able to particpate with PT. She has been seen 1x for PT, no rehab potential. (6) Malnutrition: Impression: Severe protein calorie malnutrition given obvious muscle wasting, loss of subcutaneous fat, bedridden. She is eating less these days, has become more choosy with what she will eat. BMI increased from 14.9 to 17.6, currently down to 16.9. Not sure if this is variation with the bed scale. Qualifiers: Malnutrition type: unspecified type Qualified Code(s): E46 - Unspecified protein-calorie malnutrition (7) Effusion, right knee: Impression: not worse, voltaren gel PRN This patient's diagnosis and treatment plan was discussed this AM with attending physician as a part of multi disciplinary rounding meeting. I have spent 35 minutes in the care of this patient today. This includes time [id number], review and ordering of diagnostic imaging and laboratory studies and consultation with other providers. Dispo: Court date 10/05, [facility] in [place] when legal guardianship ,etc has been established. She will also need HCS assessment. 10/02/25: This patient remains medically clear for discharge.
[2025-10-02] MEDS: CLINDAMYCIN 150 MG CAPSULE PO SCH (18:38)
--- NOTE | 2025-10-03 10:13 | PROVIDER PROGRESS NOTE ---
Subjective Prog Note Date Prog Note Date: 10/03/25 Subjective Subjective: She is doing OK today. Char is changing her and doing nimisha care now. i have started peridex swabs on her mouth QID. RN reports that she does not like it, but she is tolerating it. She is not able to follow directions to swish and spit. Current Medications Current Medications Current Medications: Current Medications Generic Name Dose Route Start Last Admin Trade Name Freq PRN Reason Stop Dose Admin Acetaminophen 650 mg 05/21/25 14:24 09/28/25 09:15 Acetaminophen 325 Mg Tablet PO 650 mg Q4HR PRN Administration Pain 1 to 4, or Fever Apixaban 2.5 mg 05/29/25 21:00 10/03/25 08:04 Apixaban 2.5 Mg Tablet PO 2.5 mg BID WETS Administration Clindamycin HCl 600 mg 10/02/25 17:00 10/03/25 08:05 Clindamycin 150 Mg Capsule PO 10/07/25 13:01 600 mg QID WEST Administration Clonidine HCl 1 patch 09/27/25 10:00 09/27/25 10:23 Clonidine 0.2 Mg Patch TOP 1 patch Q7D WEST Administration Cyclobenzaprine HCl 10 mg 09/16/25 21:00 10/02/25 22:22 Cyclobenzaprine 10 Mg Tablet PO 10 mg HS WEST Administration Cyclobenzaprine HCl 5 mg 09/16/25 11:14 10/02/25 08:38 Cyclobenzaprine 10 Mg Tablet PO 5 mg BID PRN Administration Spasms Diclofenac Sodium 2 gm 09/19/25 14:31 10/01/25 01:28 Diclofenac Sodium 1% Gel 50 Gm Tube TOP 2 gm QID PRN Administration Mild Pain (Level 1-3) Docusate Sodium 250 - 500 mg 07/02/25 10:35 09/14/25 08:31 Docusate Sodium 250 Mg Capsule PO 250 mg DAILY PRN Administration Constipation Mirtazapine 15 mg 09/29/25 21:00 10/02/25 22:22 Mirtazapine 15 Mg Tablet PO 15 mg QPM WEST Administration Polyethylene Glycol 17 gm 07/02/25 10:34 09/26/25 08:15 Polyethylene Glycol 3350 17 Gm Packet PO 17 gm DAILY PRN Administration Constipation Multivit/Folic Acid/Iron 1 tab 05/25/25 08:00 10/03/25 08:04 Vitamin Tablet PO 1 tab DAILYWM WEST Administration Tamsulosin HCl 0.4 mg 08/10/25 09:00 10/03/25 08:05 Tamsulosin 0.4 Mg Capsule PO 0.4 mg DAILY WEST Administration Zinc Oxide 113 gm 06/28/25 12:00 10/02/25 08:38 Cod Liver Oil/Zinc Oxide 113 Gm Tube TOP 1 applic PRN PRN Administration Skin Care Objective Vital Signs/Intake & Output Reviewed Vital Signs: Yes Vital Signs: Vital Signs x48h Temp Pulse Resp BP Pulse Ox 10/03/25 08:22 36.3 C L 99 20 128/79 96 Intake & Output: Intake & Output 09/30/25 10/01/25 10/02/25 10/03/25 23:59 23:59 23:59 23:59 Intake Total 1840 / 1840 1377 / 1377 750 / 750 300 / 300 Balance 1840 / 1840 1377 / 1377 750 / 750 300 / 300 Objective General Appearance: positive No acute distress and Alert Eyes Bilateral: positive Normal inspection ENT: positive Oral lesions (poor dentition, dental abscess) Neck: positive Nml inspection Respiratory: positive No respiratory distress Cardiovascular: positive Regular rate & rhythm Abdomen: positive No distention Skin: positive Color nml Extremities: positive Non-tender Neurologic/Psychiatric: positive Disoriented to person, Disoriented to place, Disoriented to time and Other (awake and alert) Lab Results 09/19/25 12:56 09/19/25 12:56 Sepsis Event Note (H) Evaluation Current Stage of Sepsis: Ruled out Assessment/Plan Problem List (1) Abnormal vital signs: Impression: Tachycardia and hypertension. Clonidine has been effective at 0.2. Continue this med Selected Entries 10/02/25 17:00 10/03/25 08:22 Pulse Rate [Radial] 110 H 99 Blood Pressure [Left Brachial artery] 117/81 Blood Pressure [Right Ankle] 128/79 (2) Dental infection: Impression: Recurrent. She was on clindamycin starting on 09/22/2025 for 20 doses, finished on 09/27. Now less than a week after completing this she has a pointing abscess in the gumline. In the inpatient setting I am not sure there is much we can do about this. I have started chlorohexidine swabs to her mouth QID, after meals and at bedtime. She does not like this, but she is not able to swish and spit. I have contacted the oral surgeon. he is not able to pull teeth in the hospital. We do not have the equipment or the correct set up. This patient is not able to travel to see him. (3) Polysubstance abuse: Impression: She has been in the hospital since 05/13/2025 UDS on presentation was positive for opiates, amphetamine, methamphetamine, cocaine She is out of the window for any acute withdrawal. She has not had any acute changes in her mental status for at least a week. (4) Altered mental status: Impression: Altered mentation likely secondary to polysubstance abuse UDS on presentation positive for opiates, amphetamine, methamphetamine, cocaine Patient was held in observation, and repeat CT and MRI were performed. MRI shows diffuse white matter hyperintense signal which may represent edema. Not the typical presentation of press Her altered mentation is not affected by her blood pressure, meaning it is not improved whenever her blood pressure is within normal limits Case discussed with neurology on 05/26, who recommended LP, but stated that this is likely sequela of hypoxic event from drug use. thiamine 500 mg IM 3 times daily started on 05 26,for 3 days, now on po thiamine daily 06/06 Daughter Ina made contact with RN. I also spoke with her, at this point, her mother's condition is sub acute. No need for interventions. 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 She is willing to assist with this, but neither she, nor her mother have a safe place to live. Qualifiers: Altered mental status type: stupor Qualified Code(s): R40.1 - Stupor (5) Pubic bone fracture: Impression: X-ray hip on 05/25 shows moderately displaced right inferior pubic ramus fracture with extension in the medial acetabular column and suspicion for extension to the pelvic ring. Case was discussed with on-call orthopedist, who reports this is nonoperative. She is full weightbearing as tolerated but has not ambulated in many months. Currently not able to particpate with PT. She has been seen 1x for PT, no rehab potential. (6) Malnutrition: Impression: Severe protein calorie malnutrition given obvious muscle wasting, loss of subcutaneous fat, bedridden. She is eating less these days, has become more choosy with what she will eat. BMI increased from 14.9 to 17.6, currently down to 16.9. Not sure if this is variation with the bed scale. Qualifiers: Malnutrition type: unspecified type Qualified Code(s): E46 - Unspecified protein-calorie malnutrition (7) Effusion, right knee: Impression: not worse, voltaren gel PRN This patient's diagnosis and treatment plan was discussed this AM with attending physician as a part of multi disciplinary rounding meeting. nonbillable rounding Dispo: Court date 10/05, [facility] in [place] when legal guardianship ,etc has been established. She will also need HCS assessment. 10/03/25: This patient remains medically clear for discharge.
[2025-10-03] MEDS: CHLORHEXIDINE GLUCONATE 15 ML UDC PO SCH (12:59)
--- NOTE | 2025-10-04 12:54 | PROVIDER PROGRESS NOTE ---
Subjective Prog Note Date Prog Note Date: 10/04/25 Subjective Subjective: She is awake and alert. Current Medications Current Medications Current Medications: Current Medications Generic Name Dose Route Start Last Admin Trade Name Falguni PRN Reason Stop Dose Admin Acetaminophen 650 mg 05/21/25 14:24 09/28/25 09:15 Acetaminophen 325 Mg Tablet PO 650 mg Q4HR PRN Administration Pain 1 to 4, or Fever Apixaban 2.5 mg 05/29/25 21:00 10/04/25 08:35 Apixaban 2.5 Mg Tablet PO 2.5 mg BID WEST Administration Chlorhexidine Gluconate 15 ml 10/03/25 13:00 10/04/25 08:35 Chlorhexidine Gluconate 15 Ml Udc PO 15 ml QID WEST Administration Clindamycin HCl 600 mg 10/02/25 17:00 10/04/25 08:35 Clindamycin 150 Mg Capsule PO 10/07/25 13:01 600 mg QID WEST Administration Clonidine HCl 1 patch 09/27/25 10:00 10/04/25 09:11 Clonidine 0.2 Mg Patch TOP 1 patch Q7D WEST Administration Cyclobenzaprine HCl 10 mg 09/16/25 21:00 10/03/25 20:27 Cyclobenzaprine 10 Mg Tablet PO 10 mg HS WEST Administration Cyclobenzaprine HCl 5 mg 09/16/25 11:14 10/02/25 08:38 Cyclobenzaprine 10 Mg Tablet PO 5 mg BID PRN Administration Spasms Diclofenac Sodium 2 gm 09/19/25 14:31 10/03/25 16:56 Diclofenac Sodium 1% Gel 50 Gm Tube TOP 2 gm QID PRN Administration Mild Pain (Level 1-3) Docusate Sodium 250 - 500 mg 07/02/25 10:35 09/14/25 08:31 Docusate Sodium 250 Mg Capsule PO 250 mg DAILY PRN Administration Constipation Mirtazapine 15 mg 09/29/25 21:00 10/03/25 20:27 Mirtazapine 15 Mg Tablet PO 15 mg QPM WEST Administration Polyethylene Glycol 17 gm 07/02/25 10:34 09/26/25 08:15 Polyethylene Glycol 3350 17 Gm Packet PO 17 gm DAILY PRN Administration Constipation Multivit/Folic Acid/Iron 1 tab 05/25/25 08:00 10/04/25 08:35 Vitamin Tablet PO 1 tab DAILYWM WEST Administration Tamsulosin HCl 0.4 mg 08/10/25 09:00 10/04/25 08:35 Tamsulosin 0.4 Mg Capsule PO 0.4 mg DAILY WEST Administration Zinc Oxide 113 gm 06/28/25 12:00 10/02/25 08:38 Cod Liver Oil/Zinc Oxide 113 Gm Tube TOP 1 applic PRN PRN Administration Skin Care Objective Vital Signs/Intake & Output Reviewed Vital Signs: Yes Vital Signs: Vital Signs x48h Temp Pulse Resp BP Pulse Ox 10/04/25 07:35 36.3 C L 96 18 121/76 95 Intake & Output: Intake & Output 10/01/25 10/02/25 10/03/25 10/04/25 23:59 23:59 23:59 23:59 Intake Total 1377 / 1377 750 / 750 1050 / 1050 580 / 580 Output Total 0 / 0 Balance 1377 / 1377 750 / 750 1050 / 1050 580 / 580 Objective General Appearance: positive No acute distress and Alert Eyes Bilateral: positive Normal inspection ENT: positive Oral lesions (poor dentition, dental abscess) Neck: positive Nml inspection Respiratory: positive No respiratory distress Cardiovascular: positive Regular rate & rhythm Abdomen: positive No distention Skin: positive Color nml Extremities: positive Non-tender Neurologic/Psychiatric: positive Disoriented to person, Disoriented to place, Disoriented to time and Other (awake and alert) Lab Results 09/19/25 12:56 09/19/25 12:56 Sepsis Event Note (H) Evaluation Current Stage of Sepsis: Ruled out Assessment/Plan Problem List (1) Abnormal vital signs: Impression: Tachycardia and hypertension. Clonidine has been effective at 0.2. Continue this med Selected Entries 10/04/25 07:35 10/04/25 15:37 Pulse Rate [Radial] 96 99 Blood Pressure [Right Ankle] 121/76 114/69 (2) Dental infection: Impression: Recurrent. She was on clindamycin starting on 09/22/2025 for 20 doses, finished on 09/27. Now less than a week after completing this she has a pointing abscess in the gumline. In the inpatient setting I am not sure there is much we can do about this. I have started chlorohexidine swabs to her mouth QID, after meals and at bedtime. She does not like this, but she is not able to swish and spit. I have contacted the oral surgeon. he is not able to pull teeth in the hospital. We do not have the equipment or the correct set up. This patient is not able to travel to see him. (3) Polysubstance abuse: Impression: She has been in the hospital since 05/13/2025 UDS on presentation was positive for opiates, amphetamine, methamphetamine, cocaine She is out of the window for any acute withdrawal. She has not had any acute changes in her mental status for at least a week. (4) Altered mental status: Impression: Altered mentation likely secondary to polysubstance abuse UDS on presentation positive for opiates, amphetamine, methamphetamine, cocaine Patient was held in observation, and repeat CT and MRI were performed. MRI shows diffuse white matter hyperintense signal which may represent edema. Not the typical presentation of press Her altered mentation is not affected by her blood pressure, meaning it is not improved whenever her blood pressure is within normal limits Case discussed with neurology on 05/26, who recommended LP, but stated that this is likely sequela of hypoxic event from drug use. thiamine 500 mg IM 3 times daily started on 05 26,for 3 days, now on po thiamine daily 06/06 Daughter Ina made contact with RN. I also spoke with her, at this point, her mother's condition is sub acute. No need for interventions. Ina is aware her mother needs nursing home care. She is willing to assist with this, but neither she, nor her mother have a safe place to live. Qualifiers: Altered mental status type: stupor Qualified Code(s): R40.1 - Stupor (5) Pubic bone fracture: Impression: X-ray hip on 05/25 shows moderately displaced right inferior pubic ramus fracture with extension in the medial acetabular column and suspicion for extension to the pelvic ring. Case was discussed with on-call orthopedist, who reports this is nonoperative. She is full weightbearing as tolerated but has not ambulated in many months. Currently not able to particpate with PT. She has been seen 1x for PT, no rehab potential. (6) Malnutrition: Impression: Severe protein calorie malnutrition given obvious muscle wasting, loss of subcutaneous fat, bedridden. She is eating less these days, has become more choosy with what she will eat. BMI increased from 14.9 to 17.6, currently down to 16.9. Not sure if this is variation with the bed scale. Qualifiers: Malnutrition type: unspecified type Qualified Code(s): E46 - Unspecified protein-calorie malnutrition (7) Effusion, right knee: Impression: not worse, sergey JEWELL This patient's diagnosis and treatment plan was discussed this AM with attending physician as a part of multi disciplinary rounding meeting. nonbillable rounding Dispo: Court date 10/05, [facility] in [place] when legal guardianship ,etc has been established. She will also need HCS assessment. 10/04/25: This patient remains medically clear for discharge.
--- NOTE | 2025-10-05 15:27 | PROVIDER PROGRESS NOTE ---
Subjective Prog Note Date Prog Note Date: 10/05/25 Subjective Subjective: I asked her if she wants water or juice, and she is able to drink about 4 oz juice from a straw. She nods yes when I ask if she was thirsty. She has no other requests today Current Medications Current Medications Current Medications: Current Medications Generic Name Dose Route Start Last Admin Trade Name Garretq PRN Reason Stop Dose Admin Acetaminophen 650 mg 05/21/25 14:24 10/05/25 12:49 Acetaminophen 325 Mg Tablet PO 650 mg Q4HR PRN Administration Pain 1 to 4, or Fever Apixaban 2.5 mg 05/29/25 21:00 10/05/25 08:14 Apixaban 2.5 Mg Tablet PO 2.5 mg BID WEST Administration Chlorhexidine Gluconate 15 ml 10/03/25 13:00 10/05/25 12:49 Chlorhexidine Gluconate 15 Ml Udc PO 15 ml QID WEST Administration Clindamycin HCl 600 mg 10/02/25 17:00 10/05/25 12:49 Clindamycin 150 Mg Capsule PO 10/07/25 13:01 600 mg QID WEST Administration Clonidine HCl 1 patch 09/27/25 10:00 10/04/25 09:11 Clonidine 0.2 Mg Patch TOP 1 patch Q7D WEST Administration Cyclobenzaprine HCl 10 mg 09/16/25 21:00 10/04/25 20:38 Cyclobenzaprine 10 Mg Tablet PO 10 mg HS WEST Administration Cyclobenzaprine HCl 5 mg 09/16/25 11:14 10/02/25 08:38 Cyclobenzaprine 10 Mg Tablet PO 5 mg BID PRN Administration Spasms Diclofenac Sodium 2 gm 09/19/25 14:31 10/05/25 02:31 Diclofenac Sodium 1% Gel 50 Gm Tube TOP 2 gm QID PRN Administration Mild Pain (Level 1-3) Docusate Sodium 250 - 500 mg 07/02/25 10:35 09/14/25 08:31 Docusate Sodium 250 Mg Capsule PO 250 mg DAILY PRN Administration Constipation Mirtazapine 15 mg 09/29/25 21:00 10/04/25 20:38 Mirtazapine 15 Mg Tablet PO 15 mg QPM WEST Administration Polyethylene Glycol 17 gm 07/02/25 10:34 09/26/25 08:15 Polyethylene Glycol 3350 17 Gm Packet PO 17 gm DAILY PRN Administration Constipation Multivit/Folic Acid/Iron 1 tab 05/25/25 08:00 10/05/25 08:14 Vitamin Tablet PO 1 tab DAILYWM WEST Administration Tamsulosin HCl 0.4 mg 08/10/25 09:00 10/05/25 08:14 Tamsulosin 0.4 Mg Capsule PO 0.4 mg DAILY WEST Administration Zinc Oxide 113 gm 06/28/25 12:00 10/05/25 02:32 Cod Liver Oil/Zinc Oxide 113 Gm Tube TOP 1 applic PRN PRN Administration Skin Care Objective Vital Signs/Intake & Output Reviewed Vital Signs: Yes Vital Signs: Vital Signs x48h Temp Pulse Resp BP Pulse Ox 10/05/25 08:30 36.5 C 105 H 20 122/79 94 Intake & Output: Intake & Output 10/02/25 10/03/25 10/04/25 10/05/25 23:59 23:59 23:59 23:59 Intake Total 750 / 750 1050 / 1050 1240 / 1240 1037 / 1037 Output Total 0 / 0 Balance 750 / 750 1050 / 1050 1240 / 1240 1037 / 1037 Objective General Appearance: positive No acute distress and Alert Eyes Bilateral: positive Normal inspection ENT: positive Oral lesions (poor dentition, dental abscess) Neck: positive Nml inspection Respiratory: positive No respiratory distress Cardiovascular: positive Regular rate & rhythm Abdomen: positive No distention Skin: positive Color nml Extremities: positive Non-tender Neurologic/Psychiatric: positive Disoriented to person, Disoriented to place, Disoriented to time and Other (awake and alert) Lab Results 09/19/25 12:56 09/19/25 12:56 Sepsis Event Note (H) Evaluation Current Stage of Sepsis: Ruled out Assessment/Plan Problem List (1) Abnormal vital signs: Impression: Tachycardia and hypertension. Clonidine has been effective at 0.2. Continue this medSelected Entries 10/04/25 15:37 10/05/25 08:30 Pulse Rate [Radial] 99 105 H Blood Pressure [Right Ankle] 114/69 122/79 (2) Dental infection: Impression: Recurrent. She was on clindamycin starting on 09/22/2025 for 20 doses, finished on 09/27. Now less than a week after completing this she has a pointing abscess in the gumline. In the inpatient setting I am not sure there is much we can do about this. I have started chlorohexidine swabs to her mouth QID, after meals and at bedtime. She does not like this, but she is not able to swish and spit. I have contacted the oral surgeon. he is not able to pull teeth in the hospital. We do not have the equipment or the correct set up. This patient is not able to travel to see him. (3) Polysubstance abuse: Impression: She has been in the hospital since 05/13/2025 UDS on presentation was positive for opiates, amphetamine, methamphetamine, cocaine She is out of the window for any acute withdrawal. She has not had any acute changes in her mental status for quite some time. (4) Altered mental status: Impression: Altered mentation likely secondary to polysubstance abuse UDS on presentation positive for opiates, amphetamine, methamphetamine, cocaine Patient was held in observation, and repeat CT and MRI were performed. MRI shows diffuse white matter hyperintense signal which may represent edema. Not the typical presentation of press Her altered mentation is not affected by her blood pressure, meaning it is not improved whenever her blood pressure is within normal limits Case discussed with neurology on 05/26, who recommended LP, but stated that this is likely sequela of hypoxic event from drug use. thiamine 500 mg IM 3 times daily started on 05 26,for 3 days, now on po thiamine daily 06/06 Daughter Ina made contact with RN. I also spoke with her, at this point, her mother's condition is sub acute. No need for interventions. Ina is aware her mother needs [facility] care. She is willing to assist with this, but neither she, nor her mother have a safe place to live. Qualifiers: Altered mental status type: stupor Qualified Code(s): R40.1 - Stupor (5) Pubic bone fracture: Impression: X-ray hip on 05/25 shows moderately displaced right inferior pubic ramus fracture with extension in the medial acetabular column and suspicion for extension to the pelvic ring. Case was discussed with on-call orthopedist, who reports this is nonoperative. She is full weightbearing as tolerated but has not ambulated in many months. Currently not able to particpate with PT. She has been seen 1x for PT, no rehab potential. (6) Malnutrition: Impression: Severe protein calorie malnutrition given obvious muscle wasting, loss of subcutaneous fat, bedridden. She is eating less these days, has become more choosy with what she will eat. BMI increased from 14.9 to 17.6, currently down to 16.9. Not sure if this is variation with the bed scale. Qualifiers: Malnutrition type: unspecified type Qualified Code(s): E46 - Unspecified protein-calorie malnutrition (7) Effusion, right knee: Impression: not worse, voltaren gel PRN This patient's diagnosis and treatment plan was discussed this AM with attending physician as a part of multi disciplinary rounding meeting. nonbillable rounding Dispo: Court date 10/05, this was cancelled, pushed to 10/19. 10/05/25: This patient remains medically clear for discharge.
--- NOTE | 2025-10-06 16:39 | PROVIDER PROGRESS NOTE ---
Subjective Prog Note Date Prog Note Date: 10/06/25 Subjective Subjective: She is sleeping today. no issues. eating and drinking fairly well. Current Medications Current Medications Current Medications: Current Medications Generic Name Dose Route Start Last Admin Trade Name Falguni PRN Reason Stop Dose Admin Acetaminophen 650 mg 05/21/25 14:24 10/06/25 01:11 Acetaminophen 325 Mg Tablet PO 650 mg Q4HR PRN Administration Pain 1 to 4, or Fever Apixaban 2.5 mg 05/29/25 21:00 10/06/25 08:38 Apixaban 2.5 Mg Tablet PO 2.5 mg BID WEST Administration Chlorhexidine Gluconate 15 ml 10/03/25 13:00 10/06/25 12:37 Chlorhexidine Gluconate 15 Ml Udc PO 15 ml QID WEST Administration Clindamycin HCl 600 mg 10/02/25 17:00 10/06/25 12:37 Clindamycin 150 Mg Capsule PO 10/07/25 13:01 600 mg QID WEST Administration Clonidine HCl 1 patch 09/27/25 10:00 10/04/25 09:11 Clonidine 0.2 Mg Patch TOP 1 patch Q7D WEST Administration Cyclobenzaprine HCl 10 mg 09/16/25 21:00 10/05/25 20:39 Cyclobenzaprine 10 Mg Tablet PO 10 mg HS WEST Administration Cyclobenzaprine HCl 5 mg 09/16/25 11:14 10/02/25 08:38 Cyclobenzaprine 10 Mg Tablet PO 5 mg BID PRN Administration Spasms Diclofenac Sodium 2 gm 09/19/25 14:31 10/06/25 01:11 Diclofenac Sodium 1% Gel 50 Gm Tube TOP 2 gm QID PRN Administration Mild Pain (Level 1-3) Docusate Sodium 250 - 500 mg 07/02/25 10:35 09/14/25 08:31 Docusate Sodium 250 Mg Capsule PO 250 mg DAILY PRN Administration Constipation Mirtazapine 15 mg 09/29/25 21:00 10/05/25 20:39 Mirtazapine 15 Mg Tablet PO 15 mg QPM WEST Administration Polyethylene Glycol 17 gm 07/02/25 10:34 09/26/25 08:15 Polyethylene Glycol 3350 17 Gm Packet PO 17 gm DAILY PRN Administration Constipation Multivit/Folic Acid/Iron 1 tab 05/25/25 08:00 10/06/25 08:38 Vitamin Tablet PO 1 tab DAILYWM WEST Administration Tamsulosin HCl 0.4 mg 08/10/25 09:00 10/06/25 08:38 Tamsulosin 0.4 Mg Capsule PO 0.4 mg DAILY WEST Administration Zinc Oxide 113 gm 06/28/25 12:00 10/06/25 08:39 Cod Liver Oil/Zinc Oxide 113 Gm Tube TOP 1 applic PRN PRN Administration Skin Care Objective Vital Signs/Intake & Output Reviewed Vital Signs: Yes Vital Signs: Vital Signs x48h Temp Pulse Pulse Resp BP Pulse Ox 10/06/25 16:19 36.5 C 114 H 24 131/80 H 97 10/06/25 08:30 36.6 C 108 H 20 147/91 H 95 Intake & Output: Intake & Output 10/03/25 10/04/25 10/05/25 10/06/25 23:59 23:59 23:59 23:59 Intake Total 1050 / 1050 1240 / 1240 1037 / 1037 950 / 950 Output Total 0 / 0 Balance 1050 / 1050 1240 / 1240 1037 / 1037 950 / 950 Objective General Appearance: positive No acute distress and Alert Eyes Bilateral: positive Normal inspection ENT: positive Oral lesions (poor dentition, dental abscess) Neck: positive Nml inspection Respiratory: positive No respiratory distress Cardiovascular: positive Regular rate & rhythm Abdomen: positive No distention Skin: positive Color nml Extremities: positive Non-tender Neurologic/Psychiatric: positive Other (she is sleeping now, has been awake to eat meals and watch TV today) Lab Results 09/19/25 12:56 09/19/25 12:56 Sepsis Event Note (H) Evaluation Current Stage of Sepsis: Ruled out Assessment/Plan Problem List (1) Abnormal vital signs: Impression: Tachycardia and hypertension. Clonidine has been effective at 0.2. Continue this med Selected Entries 10/06/25 08:30 10/06/25 16:19 Pulse Rate [Brachial] 114 H Pulse Rate [Radial] 108 H Blood Pressure [Right Brachial artery] 147/91 H 131/80 H (2) Dental infection: Impression: Recurrent. She was on clindamycin starting on 09/22/2025 for 20 doses, finished on 09/27. Now less than a week after completing this she has a pointing abscess in the gumline. Clindamycin was restarted. In the inpatient setting I am not sure there is much we can do about this. I have started chlorohexidine swabs to her mouth QID, after meals and at bedtime. She does not like this, but she is not able to swish and spit. will continue this indefinitely I have contacted the oral surgeon. he is not able to pull teeth in the hospital. We do not have the equipment or the correct set up. This patient is not able to travel to see him. (3) Polysubstance abuse: Impression: She has been in the hospital since 05/13/2025 UDS on presentation was positive for opiates, amphetamine, methamphetamine, cocaine She is out of the window for any acute withdrawal. She has not had any acute changes in her mental status for quite some time. (4) Altered mental status: Impression: Altered mentation likely secondary to polysubstance abuse UDS on presentation positive for opiates, amphetamine, methamphetamine, cocaine Patient was held in observation, and repeat CT and MRI were performed. MRI shows diffuse white matter hyperintense signal which may represent edema. Not the typical presentation of press Her altered mentation is not affected by her blood pressure, meaning it is not improved whenever her blood pressure is within normal limits Case discussed with neurology on 05/26, who recommended LP, but stated that this is likely sequela of hypoxic event from drug use. thiamine 500 mg IM 3 times daily started on 05 26,for 3 days, now on po thiamine daily 06/06 Daughter Ina made contact with RN. I also spoke with her, at this point, her mother's condition is sub acute. No need for interventions. 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 She is willing to assist with this, but neither she, nor her mother have a safe place to live. Qualifiers: Altered mental status type: stupor Qualified Code(s): R40.1 - Stupor (5) Pubic bone fracture: Impression: X-ray hip on 05/25 shows moderately displaced right inferior pubic ramus fracture with extension in the medial acetabular column and suspicion for extension to the pelvic ring. Case was discussed with on-call orthopedist, who reports this is nonoperative. She is full weightbearing as tolerated but has not ambulated in many months. Currently not able to particpate with PT. She has been seen 1x for PT, no rehab potential. (6) Malnutrition: Impression: Severe protein calorie malnutrition given obvious muscle wasting, loss of subcutaneous fat, bedridden. She is eating less these days, has become more choosy with what she will eat. BMI increased from 14.9 to 17.6, currently down to 16.9. Not sure if this is variation with the bed scale. Qualifiers: Malnutrition type: unspecified type Qualified Code(s): E46 - Unspecified protein-calorie malnutrition (7) Effusion, right knee: Impression: not worse, voltaren gel PRN This patient's diagnosis and treatment plan was discussed this AM with attending physician as a part of multi disciplinary rounding meeting. nonbillable rounding Dispo: Court date 10/05, this was cancelled, pushed to 10/19. 10/06/25: This patient remains medically clear for discharge.
--- NOTE | 2025-10-07 13:41 | PROVIDER PROGRESS NOTE ---
Subjective Prog Note Date Prog Note Date: 10/07/25 Subjective Pt reports feeling: No change Current Medications Current Medications Current Medications: Current Medications Generic Name Dose Route Start Last Admin Trade Name Falguni PRN Reason Stop Dose Admin Acetaminophen 650 mg 05/21/25 14:24 10/06/25 20:04 Acetaminophen 325 Mg Tablet PO 650 mg Q4HR PRN Administration Pain 1 to 4, or Fever Apixaban 2.5 mg 05/29/25 21:00 10/07/25 09:00 Apixaban 2.5 Mg Tablet PO 2.5 mg BID WEST Administration Chlorhexidine Gluconate 15 ml 10/03/25 13:00 10/07/25 08:59 Chlorhexidine Gluconate 15 Ml Udc PO 15 ml QID WEST Administration Clonidine HCl 1 patch 09/27/25 10:00 10/04/25 09:11 Clonidine 0.2 Mg Patch TOP 1 patch Q7D WEST Administration Cyclobenzaprine HCl 10 mg 09/16/25 21:00 10/06/25 20:04 Cyclobenzaprine 10 Mg Tablet PO 10 mg HS WEST Administration Cyclobenzaprine HCl 5 mg 09/16/25 11:14 10/02/25 08:38 Cyclobenzaprine 10 Mg Tablet PO 5 mg BID PRN Administration Spasms Diclofenac Sodium 2 gm 09/19/25 14:31 10/06/25 23:41 Diclofenac Sodium 1% Gel 50 Gm Tube TOP 2 gm QID PRN Administration Mild Pain (Level 1-3) Docusate Sodium 250 - 500 mg 07/02/25 10:35 09/14/25 08:31 Docusate Sodium 250 Mg Capsule PO 250 mg DAILY PRN Administration Constipation Mirtazapine 15 mg 09/29/25 21:00 10/06/25 20:04 Mirtazapine 15 Mg Tablet PO 15 mg QPM WEST Administration Polyethylene Glycol 17 gm 07/02/25 10:34 09/26/25 08:15 Polyethylene Glycol 3350 17 Gm Packet PO 17 gm DAILY PRN Administration Constipation Multivit/Folic Acid/Iron 1 tab 05/25/25 08:00 10/07/25 09:00 Vitamin Tablet PO 1 tab DAILYWM WEST Administration Tamsulosin HCl 0.4 mg 08/10/25 09:00 10/07/25 08:59 Tamsulosin 0.4 Mg Capsule PO 0.4 mg DAILY WEST Administration Zinc Oxide 113 gm 06/28/25 12:00 10/07/25 06:16 Cod Liver Oil/Zinc Oxide 113 Gm Tube TOP 1 applic PRN PRN Administration Skin Care Objective Vital Signs/Intake & Output Reviewed Vital Signs: Yes Vital Signs: Vital Signs x48h Temp Pulse Resp BP Pulse Ox 10/07/25 08:08 97.3 F L 103 H 16 138/89 H 98 Intake & Output: Intake & Output 10/04/25 10/05/25 10/06/25 10/07/25 23:59 23:59 23:59 23:59 Intake Total 1240 / 1240 1037 / 1037 1430 / 1430 597 / 597 Output Total 0 / 0 Balance 1240 / 1240 1037 / 1037 1430 / 1430 597 / 597 Objective General Appearance: positive No acute distress and Alert Eyes Bilateral: positive Normal inspection ENT: positive Oral lesions (poor dentition) Neck: positive Nml inspection Respiratory: positive No respiratory distress Cardiovascular: positive Regular rate & rhythm Abdomen: positive No distention Skin: positive Color nml Extremities: positive Non-tender Neurologic/Psychiatric: positive Other (Tracks with eyes, will answer yes or no questions) Lab Results 09/19/25 12:56 09/19/25 12:56 Sepsis Event Note (H) Evaluation Current Stage of Sepsis: Ruled out Assessment/Plan Problem List (1) Abnormal vital signs: Impression: Tachycardia and hypertension. Clonidine has been effective at 0.2. Continue this med Selected Entries 10/06/25 08:30 10/06/25 16:19 Pulse Rate [Brachial] 114 H Pulse Rate [Radial] 108 H Blood Pressure [Right Brachial artery] 147/91 H 131/80 H (2) Dental infection: Impression: Recurrent. She was on clindamycin starting on 09/22/2025 for 20 doses, finished on 09/27. Now less than a week after completing this she has a pointing abscess in the gumline. Clindamycin was restarted. In the inpatient setting I am not sure there is much we can do about this. I have started chlorohexidine swabs to her mouth QID, after meals and at bedtime. She does not like this, but she is not able to swish and spit. will continue this indefinitely I have contacted the oral surgeon. he is not able to pull teeth in the hospital. We do not have the equipment or the correct set up. This patient is not able to travel to see him. (3) Polysubstance abuse: Impression: She has been in the hospital since 05/13/2025 UDS on presentation was positive for opiates, amphetamine, methamphetamine, cocaine She is out of the window for any acute withdrawal. She has not had any acute changes in her mental status for quite some time. (4) Altered mental status: Impression: Altered mentation likely secondary to polysubstance abuse UDS on presentation positive for opiates, amphetamine, methamphetamine, cocaine Patient was held in observation, and repeat CT and MRI were performed. MRI shows diffuse white matter hyperintense signal which may represent edema. Not the typical presentation of press Her altered mentation is not affected by her blood pressure, meaning it is not improved whenever her blood pressure is within normal limits Case discussed with neurology on 05/26, who recommended LP, but stated that this is likely sequela of hypoxic event from drug use. thiamine 500 mg IM 3 times daily started on 05 26,for 3 days, now on po thiamine daily 06/06 Daughter Ina made contact with RN. I also spoke with her, at this point, her mother's condition is sub acute. No need for interventions. Ina is aware her mother needs jail care. She is willing to assist with this, but neither she, nor her mother have a safe place to live. Qualifiers: Altered mental status type: stupor Qualified Code(s): R40.1 - Stupor (5) Pubic bone fracture: Impression: X-ray hip on 05/25 shows moderately displaced right inferior pubic ramus fracture with extension in the medial acetabular column and suspicion for extension to the pelvic ring. Case was discussed with on-call orthopedist, who reports this is nonoperative. She is full weightbearing as tolerated but has not ambulated in many months. Currently not able to particpate with PT. She has been seen 1x for PT, no rehab potential. (6) Malnutrition: Impression: Severe protein calorie malnutrition given obvious muscle wasting, loss of subcutaneous fat, bedridden. She is eating less these days, has become more choosy with what she will eat. BMI increased from 14.9 to 17.6, currently down to 16.9. Not sure if this is variation with the bed scale. Qualifiers: Malnutrition type: unspecified type Qualified Code(s): E46 - Unspecified protein-calorie malnutrition (7) Effusion, right knee: Impression: not worse, voltaren gel PRN This patient's diagnosis and treatment plan was discussed this AM with attending physician as a part of multi disciplinary rounding meeting. nonbillable rounding Dispo: Court date 10/05, this was cancelled, pushed to 10/19. 10/07/25: This patient remains medically clear for discharge.
--- NOTE | 2025-10-08 14:55 | PROVIDER PROGRESS NOTE ---
Subjective Prog Note Date Prog Note Date: 10/08/25 Subjective Pt reports feeling: No change Current Medications Current Medications Current Medications: Current Medications Generic Name Dose Route Start Last Admin Trade Name Falguni PRN Reason Stop Dose Admin Acetaminophen 650 mg 05/21/25 14:24 10/06/25 20:04 Acetaminophen 325 Mg Tablet PO 650 mg Q4HR PRN Administration Pain 1 to 4, or Fever Apixaban 2.5 mg 05/29/25 21:00 10/08/25 09:43 Apixaban 2.5 Mg Tablet PO 2.5 mg BID WEST Administration Chlorhexidine Gluconate 15 ml 10/03/25 13:00 10/08/25 14:26 Chlorhexidine Gluconate 15 Ml Udc PO 15 ml QID WEST Administration Clonidine HCl 1 patch 09/27/25 10:00 10/04/25 09:11 Clonidine 0.2 Mg Patch TOP 1 patch Q7D WEST Administration Cyclobenzaprine HCl 10 mg 09/16/25 21:00 10/07/25 20:23 Cyclobenzaprine 10 Mg Tablet PO 10 mg HS WEST Administration Cyclobenzaprine HCl 5 mg 09/16/25 11:14 10/02/25 08:38 Cyclobenzaprine 10 Mg Tablet PO 5 mg BID PRN Administration Spasms Diclofenac Sodium 2 gm 09/19/25 14:31 10/06/25 23:41 Diclofenac Sodium 1% Gel 50 Gm Tube TOP 2 gm QID PRN Administration Mild Pain (Level 1-3) Docusate Sodium 250 - 500 mg 07/02/25 10:35 09/14/25 08:31 Docusate Sodium 250 Mg Capsule PO 250 mg DAILY PRN Administration Constipation Mirtazapine 15 mg 09/29/25 21:00 10/07/25 20:23 Mirtazapine 15 Mg Tablet PO 15 mg QPM WEST Administration Polyethylene Glycol 17 gm 07/02/25 10:34 09/26/25 08:15 Polyethylene Glycol 3350 17 Gm Packet PO 17 gm DAILY PRN Administration Constipation Multivit/Folic Acid/Iron 1 tab 05/25/25 08:00 10/08/25 09:37 Vitamin Tablet PO 1 tab DAILYWM WEST Administration Tamsulosin HCl 0.4 mg 08/10/25 09:00 10/08/25 09:43 Tamsulosin 0.4 Mg Capsule PO 0.4 mg DAILY WEST Administration Zinc Oxide 113 gm 06/28/25 12:00 10/07/25 06:16 Cod Liver Oil/Zinc Oxide 113 Gm Tube TOP 1 applic PRN PRN Administration Skin Care Objective Vital Signs/Intake & Output Reviewed Vital Signs: Yes Vital Signs: Vital Signs x48h Temp Pulse Resp BP Pulse Ox 10/08/25 09:03 97.5 F L 105 H 18 104/87 92 Intake & Output: Intake & Output 10/05/25 10/06/25 10/07/25 10/08/25 23:59 23:59 23:59 23:59 Intake Total 1037 / 1037 1430 / 1430 817 / 817 540 / 540 Output Total 300 / 300 Balance 1037 / 1037 1430 / 1430 517 / 517 540 / 540 Objective General Appearance: positive No acute distress and Alert Eyes Bilateral: positive Normal inspection ENT: positive Oral lesions (poor dentition) Neck: positive Nml inspection Respiratory: positive No respiratory distress Cardiovascular: positive Regular rate & rhythm Abdomen: positive No distention Skin: positive Color nml Extremities: positive Non-tender Neurologic/Psychiatric: positive Other (Tracks with eyes, will answer yes or no questions) Lab Results 09/19/25 12:56 09/19/25 12:56 Sepsis Event Note (H) Evaluation Current Stage of Sepsis: Ruled out Assessment/Plan Problem List (1) Abnormal vital signs: Impression: Tachycardia and hypertension. Clonidine has been effective at 0.2. Continue this med (2) Dental infection: Impression: Recurrent. She was on clindamycin starting on 09/22/2025 for 20 doses, finished on 09/27. Now less than a week after completing this she has a pointing abscess in the gumline. Clindamycin was restarted. In the inpatient setting I am not sure there is much we can do about this. I have started chlorohexidine swabs to her mouth QID, after meals and at bedtime. She does not like this, but she is not able to swish and spit. will continue this indefinitely I have contacted the oral surgeon. he is not able to pull teeth in the hospital. We do not have the equipment or the correct set up. This patient is not able to travel to see him. (3) Polysubstance abuse: Impression: She has been in the hospital since 05/13/2025 UDS on presentation was positive for opiates, amphetamine, methamphetamine, cocaine She is out of the window for any acute withdrawal. She has not had any acute changes in her mental status for quite some time. (4) Altered mental status: Impression: Altered mentation likely secondary to polysubstance abuse UDS on presentation positive for opiates, amphetamine, methamphetamine, cocaine Patient was held in observation, and repeat CT and MRI were performed. MRI shows diffuse white matter hyperintense signal which may represent edema. Not the typical presentation of press Her altered mentation is not affected by her blood pressure, meaning it is not improved whenever her blood pressure is within normal limits Case discussed with neurology on 05/26, who recommended LP, but stated that this is likely sequela of hypoxic event from drug use. thiamine 500 mg IM 3 times daily started on 05 26,for 3 days, now on po thiamine daily Qualifiers: Altered mental status type: stupor Qualified Code(s): R40.1 - Stupor (5) Pubic bone fracture: Impression: X-ray hip on 05/25 shows moderately displaced right inferior pubic ramus fracture with extension in the medial acetabular column and suspicion for extension to the pelvic ring. Case was discussed with on-call orthopedist, who reports this is nonoperative. She is full weightbearing as tolerated but has not ambulated in many months. Currently not able to particpate with PT. She has been seen 1x for PT, no rehab potential. (6) Malnutrition: Impression: Severe protein calorie malnutrition given obvious muscle wasting, loss of subcutaneous fat, bedridden. She is eating less these days, has become more choosy with what she will eat. BMI increased from 14.9 to 17.6, currently down to 16.9. Not sure if this is variation with the bed scale. Qualifiers: Malnutrition type: unspecified type Qualified Code(s): E46 - Unspecified protein-calorie malnutrition (7) Effusion, right knee: Impression: not worse, voltaren gel PRN This patient's diagnosis and treatment plan was discussed this AM with attending physician as a part of multi disciplinary rounding meeting. nonbillable rounding Dispo: Court date 10/05, this was cancelled, pushed to 10/19. 10/08/25: This patient remains medically clear for discharge.
--- NOTE | 2025-10-09 16:53 | PROVIDER PROGRESS NOTE ---
Subjective Prog Note Date Prog Note Date: 10/09/25 Subjective Pt reports feeling: No change Current Medications Current Medications Current Medications: Current Medications Generic Name Dose Route Start Last Admin Trade Name Falguni PRN Reason Stop Dose Admin Acetaminophen 650 mg 05/21/25 14:24 10/08/25 20:52 Acetaminophen 325 Mg Tablet PO 650 mg Q4HR PRN Administration Pain 1 to 4, or Fever Apixaban 2.5 mg 05/29/25 21:00 10/09/25 08:53 Apixaban 2.5 Mg Tablet PO 2.5 mg BID WEST Administration Chlorhexidine Gluconate 15 ml 10/03/25 13:00 10/09/25 16:38 Chlorhexidine Gluconate 15 Ml Udc PO 15 ml QID WEST Administration Clonidine HCl 1 patch 09/27/25 10:00 10/04/25 09:11 Clonidine 0.2 Mg Patch TOP 1 patch Q7D WEST Administration Cyclobenzaprine HCl 10 mg 09/16/25 21:00 10/08/25 20:52 Cyclobenzaprine 10 Mg Tablet PO 10 mg HS WEST Administration Cyclobenzaprine HCl 5 mg 09/16/25 11:14 10/02/25 08:38 Cyclobenzaprine 10 Mg Tablet PO 5 mg BID PRN Administration Spasms Diclofenac Sodium 2 gm 09/19/25 14:31 10/09/25 03:09 Diclofenac Sodium 1% Gel 50 Gm Tube TOP 2 gm QID PRN Administration Mild Pain (Level 1-3) Docusate Sodium 250 - 500 mg 07/02/25 10:35 09/14/25 08:31 Docusate Sodium 250 Mg Capsule PO 250 mg DAILY PRN Administration Constipation Mirtazapine 15 mg 09/29/25 21:00 10/08/25 20:52 Mirtazapine 15 Mg Tablet PO 15 mg QPM WEST Administration Polyethylene Glycol 17 gm 07/02/25 10:34 09/26/25 08:15 Polyethylene Glycol 3350 17 Gm Packet PO 17 gm DAILY PRN Administration Constipation Multivit/Folic Acid/Iron 1 tab 05/25/25 08:00 10/09/25 08:53 Vitamin Tablet PO 1 tab DAILYWM WEST Administration Tamsulosin HCl 0.4 mg 08/10/25 09:00 10/09/25 08:53 Tamsulosin 0.4 Mg Capsule PO 0.4 mg DAILY WEST Administration Zinc Oxide 113 gm 08/10/25 12:00 10/09/25 06:47 Cod Liver Oil/Zinc Oxide 113 Gm Tube TOP 1 applic PRN PRN Administration Skin Care Objective Vital Signs/Intake & Output Reviewed Vital Signs: Yes Vital Signs: Vital Signs x48h Temp Pulse Resp BP Pulse Ox 10/08/25 09:03 97.5 F L 105 H 18 104/87 92 Intake & Output: Intake & Output 10/06/25 10/07/25 10/08/25 10/09/25 23:59 23:59 23:59 23:59 Intake Total 1430 / 1430 817 / 817 1020 / 1020 590 / 590 Output Total 300 / 300 Balance 1430 / 1430 517 / 517 1020 / 1020 590 / 590 Objective General Appearance: positive No acute distress and Alert Eyes Bilateral: positive Normal inspection ENT: positive Oral lesions (poor dentition) Neck: positive Nml inspection Respiratory: positive No respiratory distress Cardiovascular: positive Regular rate & rhythm Abdomen: positive No distention Skin: positive Color nml Extremities: positive Non-tender Neurologic/Psychiatric: positive Other (Tracks with eyes, will answer yes or no questions) Lab Results 09/19/25 12:56 09/19/25 12:56 Sepsis Event Note (H) Evaluation Current Stage of Sepsis: Ruled out Assessment/Plan Problem List (1) Abnormal vital signs: Impression: Tachycardia and hypertension. Clonidine has been effective at 0.2. Continue this med (2) Dental infection: Impression: Recurrent. She was on clindamycin starting on 09/22/2025 for 20 doses, finished on 09/27. Now less than a week after completing this she has a pointing abscess in the gumline. Clindamycin was restarted. In the inpatient setting I am not sure there is much we can do about this. I have started chlorohexidine swabs to her mouth QID, after meals and at bedtime. She does not like this, but she is not able to swish and spit. will continue this indefinitely We have been discussing this case with a local [facility]. We have been informed that we do not have the correct equipment or set up. If this patient were discharged, he may be able to do something about this, but he is not able to address this in the inpatient setting (3) Polysubstance abuse: Impression: She has been in the hospital since 05/13/2025 UDS on presentation was positive for opiates, amphetamine, methamphetamine, cocaine She is out of the window for any acute withdrawal. She has not had any acute changes in her mental status for quite some time. (4) Altered mental status: Impression: Altered mentation likely secondary to polysubstance abuse UDS on presentation positive for opiates, amphetamine, methamphetamine, cocaine Patient was held in observation, and repeat CT and MRI were performed. MRI shows diffuse white matter hyperintense signal which may represent edema. Not the typical presentation of press Her altered mentation is not affected by her blood pressure, meaning it is not improved whenever her blood pressure is within normal limits Case discussed with neurology on 05/26, who recommended LP, but stated that this is likely sequela of hypoxic event from drug use. thiamine 500 mg IM 3 times daily started on 05 26,for 3 days, now on po thiamine daily Qualifiers: Altered mental status type: stupor Qualified Code(s): R40.1 - Stupor (5) Pubic bone fracture: Impression: X-ray hip on 05/25 shows moderately displaced right inferior pubic ramus fracture with extension in the medial acetabular column and suspicion for extension to the pelvic ring. Case was discussed with on-call orthopedist, who reports this is nonoperative. She is full weightbearing as tolerated but has not ambulated in many months. Currently not able to particpate with PT. She has been seen 1x for PT, no rehab potential. (6) Malnutrition: Impression: Severe protein calorie malnutrition given obvious muscle wasting, loss of subcutaneous fat, bedridden. She is eating less these days, has become more choosy with what she will eat. BMI increased from 14.9 to 17.6, currently down to 16.9. Not sure if this is variation with the bed scale. Qualifiers: Malnutrition type: unspecified type Qualified Code(s): E46 - Unspecified protein-calorie malnutrition (7) Effusion, right knee: Impression: not worse, voltaren gel PRN This patient's diagnosis and treatment plan was discussed this AM with attending physician as a part of multi disciplinary rounding meeting. nonbillable rounding Dispo: Court date 10/05, this was cancelled, pushed to 10/19. 10/09/25: This patient remains medically clear for discharge.
[2025-10-10] MEDS: cloNIDine 0.2 MG PATCH TOP SCH (09:44)
--- NOTE | 2025-10-10 15:38 | PROVIDER PROGRESS NOTE ---
Subjective Prog Note Date Prog Note Date: 10/10/25 Subjective Pt reports feeling: No change Current Medications Current Medications Current Medications: Current Medications Generic Name Dose Route Start Last Admin Trade Name Falguni PRN Reason Stop Dose Admin Acetaminophen 650 mg 05/21/25 14:24 10/08/25 20:52 Acetaminophen 325 Mg Tablet PO 650 mg Q4HR PRN Administration Pain 1 to 4, or Fever Apixaban 2.5 mg 05/29/25 21:00 10/10/25 08:55 Apixaban 2.5 Mg Tablet PO 2.5 mg BID WEST Administration Chlorhexidine Gluconate 15 ml 10/03/25 13:00 10/10/25 13:25 Chlorhexidine Gluconate 15 Ml Udc PO 15 ml QID WEST Administration Clonidine HCl 1 patch 10/10/25 10:00 10/10/25 09:44 Clonidine 0.2 Mg Patch TOP 1 patch Q7D WEST Administration Cyclobenzaprine HCl 10 mg 09/16/25 21:00 10/09/25 20:27 Cyclobenzaprine 10 Mg Tablet PO 10 mg HS WEST Administration Cyclobenzaprine HCl 5 mg 09/16/25 11:14 10/02/25 08:38 Cyclobenzaprine 10 Mg Tablet PO 5 mg BID PRN Administration Spasms Diclofenac Sodium 2 gm 09/19/25 14:31 10/09/25 03:09 Diclofenac Sodium 1% Gel 50 Gm Tube TOP 2 gm QID PRN Administration Mild Pain (Level 1-3) Docusate Sodium 250 - 500 mg 07/02/25 10:35 09/14/25 08:31 Docusate Sodium 250 Mg Capsule PO 250 mg DAILY PRN Administration Constipation Mirtazapine 15 mg 09/29/25 21:00 10/09/25 20:27 Mirtazapine 15 Mg Tablet PO 15 mg QPM WEST Administration Multi-Ingredient Ointment 1 applic 10/10/25 14:38 Emollient Cream 57 Gm Tube TOP BID PRN dry skin Polyethylene Glycol 17 gm 07/02/25 10:34 09/26/25 08:15 Polyethylene Glycol 3350 17 Gm Packet PO 17 gm DAILY PRN Administration Constipation Multivit/Folic Acid/Iron 1 tab 05/25/25 08:00 10/10/25 08:55 Vitamin Tablet PO 1 tab DAILYWM WEST Administration Tamsulosin HCl 0.4 mg 08/10/25 09:00 10/10/25 08:55 Tamsulosin 0.4 Mg Capsule PO 0.4 mg DAILY WEST Administration Zinc Oxide 113 gm 06/28/25 12:00 10/09/25 06:47 Cod Liver Oil/Zinc Oxide 113 Gm Tube TOP 1 applic PRN PRN Administration Skin Care Objective Vital Signs/Intake & Output Reviewed Vital Signs: Yes Vital Signs: Vital Signs x48h Temp Pulse Resp BP Pulse Ox 10/10/25 10:31 102 H 10/10/25 09:00 97.3 F L 122 H 22 152/101 H 96 Intake & Output: Intake & Output 10/07/25 10/08/25 10/09/25 10/10/25 23:59 23:59 23:59 23:59 Intake Total 817 / 817 1020 / 1020 910 / 910 480 / 480 Output Total 300 / 300 Balance 517 / 517 1020 / 1020 910 / 910 480 / 480 Objective General Appearance: positive No acute distress and Alert Eyes Bilateral: positive Normal inspection ENT: positive Oral lesions (poor dentition) Neck: positive Nml inspection Respiratory: positive No respiratory distress Cardiovascular: positive Regular rate & rhythm Abdomen: positive No distention Skin: positive Color nml Extremities: positive Non-tender Neurologic/Psychiatric: positive Other (Tracks with eyes, will answer yes or no questions) Lab Results 09/19/25 12:56 09/19/25 12:56 Sepsis Event Note (H) Evaluation Current Stage of Sepsis: Ruled out Assessment/Plan Problem List (1) Abnormal vital signs: Impression: Tachycardia and hypertension. Clonidine has been effective at 0.2. Continue this med (2) Dental infection: Impression: Recurrent. She was on clindamycin starting on 09/22/2025 for 20 doses, finished on 09/27. Now less than a week after completing this she has a pointing abscess in the gumline. Clindamycin was restarted. In the inpatient setting I am not sure there is much we can do about this. I have started chlorohexidine swabs to her mouth QID, after meals and at bedtime. She does not like this, but she is not able to swish and spit. will continue this indefinitely We have been discussing this case with a local OMFS. We have been informed that we do not have the correct equipment or set up. If this patient were discharged, he may be able to do something about this, but he is not able to address this in the inpatient setting (3) Polysubstance abuse: Impression: She has been in the hospital since 05/13/2025 UDS on presentation was positive for opiates, amphetamine, methamphetamine, cocaine She is out of the window for any acute withdrawal. She has not had any acute changes in her mental status for quite some time. (4) Altered mental status: Impression: Altered mentation likely secondary to polysubstance abuse UDS on presentation positive for opiates, amphetamine, methamphetamine, cocaine Patient was held in observation, and repeat CT and MRI were performed. MRI shows diffuse white matter hyperintense signal which may represent edema. Not the typical presentation of press Her altered mentation is not affected by her blood pressure, meaning it is not improved whenever her blood pressure is within normal limits Case discussed with neurology on 05/26, who recommended LP, but stated that this is likely sequela of hypoxic event from drug use. thiamine 500 mg IM 3 times daily started on 05 26,for 3 days, now on po thiamine daily Qualifiers: Altered mental status type: stupor Qualified Code(s): R40.1 - Stupor (5) Pubic bone fracture: Impression: X-ray hip on 05/25 shows moderately displaced right inferior pubic ramus fracture with extension in the medial acetabular column and suspicion for extension to the pelvic ring. Case was discussed with on-call orthopedist, who reports this is nonoperative. She is full weightbearing as tolerated but has not ambulated in many months. Currently not able to particpate with PT. She has been seen 1x for PT, no rehab potential. (6) Malnutrition: Impression: Severe protein calorie malnutrition given obvious muscle wasting, loss of subcutaneous fat, bedridden. She is eating less these days, has become more choosy with what she will eat. BMI increased from 14.9 to 17.6, currently down to 16.9. Not sure if this is variation with the bed scale. Qualifiers: Malnutrition type: unspecified type Qualified Code(s): E46 - Unspecified protein-calorie malnutrition (7) Effusion, right knee: Impression: not worse, voltaren gel PRN This patient's diagnosis and treatment plan was discussed this AM with attending physician as a part of multi disciplinary rounding meeting. nonbillable rounding Dispo: Court date 10/05, this was cancelled, pushed to 10/19. 10/10/25: This patient remains medically clear for discharge.
--- NOTE | 2025-10-11 13:01 | PROVIDER PROGRESS NOTE ---
Subjective Prog Note Date Prog Note Date: 10/11/25 Subjective Pt reports feeling: No change Current Medications Current Medications Current Medications: Current Medications Generic Name Dose Route Start Last Admin Trade Name Falguni PRN Reason Stop Dose Admin Acetaminophen 650 mg 05/21/25 14:24 10/10/25 20:20 Acetaminophen 325 Mg Tablet PO 650 mg Q4HR PRN Administration Pain 1 to 4, or Fever Apixaban 2.5 mg 05/29/25 21:00 10/11/25 08:43 Apixaban 2.5 Mg Tablet PO 2.5 mg BID WEST Administration Chlorhexidine Gluconate 15 ml 10/03/25 13:00 10/11/25 08:43 Chlorhexidine Gluconate 15 Ml Udc PO 15 ml QID WEST Administration Clonidine HCl 1 patch 10/10/25 10:00 10/10/25 09:44 Clonidine 0.2 Mg Patch TOP 1 patch Q7D WEST Administration Cyclobenzaprine HCl 10 mg 09/16/25 21:00 10/10/25 20:20 Cyclobenzaprine 10 Mg Tablet PO 10 mg HS WEST Administration Cyclobenzaprine HCl 5 mg 09/16/25 11:14 10/11/25 08:43 Cyclobenzaprine 10 Mg Tablet PO 5 mg BID PRN Administration Spasms Diclofenac Sodium 2 gm 09/19/25 14:31 10/10/25 23:00 Diclofenac Sodium 1% Gel 50 Gm Tube TOP 2 gm QID PRN Administration Mild Pain (Level 1-3) Docusate Sodium 250 - 500 mg 07/02/25 10:35 09/14/25 08:31 Docusate Sodium 250 Mg Capsule PO 250 mg DAILY PRN Administration Constipation Mirtazapine 15 mg 09/29/25 21:00 10/10/25 20:20 Mirtazapine 15 Mg Tablet PO 15 mg QPM WEST Administration Multi-Ingredient Ointment 1 applic 10/10/25 14:38 Emollient Cream 57 Gm Tube TOP BID PRN dry skin Polyethylene Glycol 17 gm 07/02/25 10:34 10/11/25 08:44 Polyethylene Glycol 3350 17 Gm Packet PO 17 gm DAILY PRN Administration Constipation Multivit/Folic Acid/Iron 1 tab 05/25/25 08:00 10/11/25 08:43 Vitamin Tablet PO 1 tab DAILYWM WEST Administration Tamsulosin HCl 0.4 mg 08/10/25 09:00 10/11/25 08:43 Tamsulosin 0.4 Mg Capsule PO 0.4 mg DAILY WEST Administration Zinc Oxide 113 gm 06/28/25 12:00 10/11/25 08:43 Cod Liver Oil/Zinc Oxide 113 Gm Tube TOP 1 applic PRN PRN Administration Skin Care Objective Vital Signs/Intake & Output Reviewed Vital Signs: Yes Vital Signs: Vital Signs x48h Temp Pulse Resp BP Pulse Ox 10/11/25 09:00 97.5 F L 121 H 18 135/90 H 97 Intake & Output: Intake & Output 10/08/25 10/09/25 10/10/25 10/11/25 23:59 23:59 23:59 23:59 Intake Total 1020 / 1020 910 / 910 1200 / 1200 240 / 240 Balance 1020 / 1020 910 / 910 1200 / 1200 240 / 240 Objective General Appearance: positive No acute distress and Alert Eyes Bilateral: positive Normal inspection ENT: positive Oral lesions (poor dentition) Neck: positive Nml inspection Respiratory: positive No respiratory distress Cardiovascular: positive Regular rate & rhythm Abdomen: positive No distention Skin: positive Color nml Extremities: positive Non-tender Neurologic/Psychiatric: positive Other (Tracks with eyes, will answer yes or no questions) Lab Results 09/19/25 12:56 09/19/25 12:56 Sepsis Event Note (H) Evaluation Current Stage of Sepsis: Ruled out Assessment/Plan Problem List (1) Abnormal vital signs: Impression: Tachycardia and hypertension. Clonidine has been effective at 0.2. Continue this med (2) Dental infection: Impression: Recurrent. She was on clindamycin starting on 09/22/2025 for 20 doses, finished on 09/27. Now less than a week after completing this she has a pointing abscess in the gumline. Clindamycin was restarted. In the inpatient setting I am not sure there is much we can do about this. I have started chlorohexidine swabs to her mouth QID, after meals and at bedtime. She does not like this, but she is not able to swish and spit. will continue this indefinitely We have been discussing this case with a local OMFS. We have been informed that we do not have the correct equipment or set up. If this patient were discharged, he may be able to do something about this, but he is not able to address this in the inpatient setting (3) Polysubstance abuse: Impression: She has been in the hospital since 05/13/2025 UDS on presentation was positive for opiates, amphetamine, methamphetamine, cocaine She is out of the window for any acute withdrawal. She has not had any acute changes in her mental status for quite some time. (4) Altered mental status: Impression: Altered mentation likely secondary to polysubstance abuse UDS on presentation positive for opiates, amphetamine, methamphetamine, cocaine Patient was held in observation, and repeat CT and MRI were performed. MRI shows diffuse white matter hyperintense signal which may represent edema. Not the typical presentation of press Her altered mentation is not affected by her blood pressure, meaning it is not improved whenever her blood pressure is within normal limits Case discussed with neurology on 05/26, who recommended LP, but stated that this is likely sequela of hypoxic event from drug use. thiamine 500 mg IM 3 times daily started on 05 26,for 3 days, now on po thiamine daily Qualifiers: Altered mental status type: stupor Qualified Code(s): R40.1 - Stupor (5) Pubic bone fracture: Impression: X-ray hip on 05/25 shows moderately displaced right inferior pubic ramus fracture with extension in the medial acetabular column and suspicion for extension to the pelvic ring. Case was discussed with on-call orthopedist, who reports this is nonoperative. She is full weightbearing as tolerated but has not ambulated in many months. Currently not able to particpate with PT. She has been seen 1x for PT, no rehab potential. (6) Malnutrition: Impression: Severe protein calorie malnutrition given obvious muscle wasting, loss of subcutaneous fat, bedridden. She is eating less these days, has become more choosy with what she will eat. BMI increased from 14.9 to 17.6, currently down to 16.9. Not sure if this is variation with the bed scale. Qualifiers: Malnutrition type: unspecified type Qualified Code(s): E46 - Unspecified protein-calorie malnutrition (7) Effusion, right knee: Impression: not worse, voltaren gel PRN This patient's diagnosis and treatment plan was discussed this AM with attending physician as a part of multi disciplinary rounding meeting. nonbillable rounding Dispo: Court date 10/05, this was cancelled, pushed to 10/19. 10/11/25: This patient remains medically clear for discharge.
[2025-10-12] MEDS: EMOLLIENT CREAM 57 GM TUBE TOP PRN (08:52)
--- NOTE | 2025-10-12 11:33 | PROVIDER PROGRESS NOTE ---
Subjective Prog Note Date Prog Note Date: 10/12/25 Subjective Pt reports feeling: No change Current Medications Current Medications Current Medications: Current Medications Generic Name Dose Route Start Last Admin Trade Name Falguni PRN Reason Stop Dose Admin Acetaminophen 650 mg 05/21/25 14:24 10/10/25 20:20 Acetaminophen 325 Mg Tablet PO 650 mg Q4HR PRN Administration Pain 1 to 4, or Fever Apixaban 2.5 mg 05/29/25 21:00 10/12/25 08:52 Apixaban 2.5 Mg Tablet PO 2.5 mg BID WEST Administration Chlorhexidine Gluconate 15 ml 10/03/25 13:00 10/12/25 08:52 Chlorhexidine Gluconate 15 Ml Udc PO 15 ml QID WEST Administration Clonidine HCl 1 patch 10/10/25 10:00 10/10/25 09:44 Clonidine 0.2 Mg Patch TOP 1 patch Q7D WEST Administration Cyclobenzaprine HCl 10 mg 09/16/25 21:00 10/11/25 21:09 Cyclobenzaprine 10 Mg Tablet PO 10 mg HS WEST Administration Cyclobenzaprine HCl 5 mg 09/16/25 11:14 10/11/25 08:43 Cyclobenzaprine 10 Mg Tablet PO 5 mg BID PRN Administration Spasms Diclofenac Sodium 2 gm 09/19/25 14:31 10/12/25 03:30 Diclofenac Sodium 1% Gel 50 Gm Tube TOP 2 gm QID PRN Administration Mild Pain (Level 1-3) Docusate Sodium 250 - 500 mg 07/02/25 10:35 09/14/25 08:31 Docusate Sodium 250 Mg Capsule PO 250 mg DAILY PRN Administration Constipation Mirtazapine 15 mg 09/29/25 21:00 10/11/25 21:09 Mirtazapine 15 Mg Tablet PO 15 mg QPM WEST Administration Multi-Ingredient Ointment 1 applic 10/10/25 14:38 10/12/25 08:52 Emollient Cream 57 Gm Tube TOP 1 applic BID PRN Administration dry skin Polyethylene Glycol 17 gm 07/02/25 10:34 10/11/25 08:44 Polyethylene Glycol 3350 17 Gm Packet PO 17 gm DAILY PRN Administration Constipation Multivit/Folic Acid/Iron 1 tab 05/25/25 08:00 10/12/25 08:52 Vitamin Tablet PO 1 tab DAILYWM WEST Administration Tamsulosin HCl 0.4 mg 08/10/25 09:00 10/12/25 08:52 Tamsulosin 0.4 Mg Capsule PO 0.4 mg DAILY WEST Administration Zinc Oxide 113 gm 06/28/25 12:00 10/11/25 08:43 Cod Liver Oil/Zinc Oxide 113 Gm Tube TOP 1 applic PRN PRN Administration Skin Care Objective Vital Signs/Intake & Output Reviewed Vital Signs: Yes Vital Signs: Vital Signs x48h Temp Pulse Resp BP Pulse Ox 10/12/25 07:46 97.9 F 121 H 18 136/87 H 96 Intake & Output: Intake & Output 10/09/25 10/10/25 10/11/25 10/12/25 23:59 23:59 23:59 23:59 Intake Total 910 / 910 1200 / 1200 1060 / 1060 440 / 440 Balance 910 / 910 1200 / 1200 1060 / 1060 440 / 440 Objective General Appearance: positive No acute distress and Alert Eyes Bilateral: positive Normal inspection ENT: positive Oral lesions (poor dentition) Neck: positive Nml inspection Respiratory: positive No respiratory distress Cardiovascular: positive Regular rate & rhythm Abdomen: positive No distention Skin: positive Color nml Extremities: positive Non-tender Neurologic/Psychiatric: positive Other (Tracks with eyes, will answer yes or no questions) Lab Results 09/19/25 12:56 09/19/25 12:56 Sepsis Event Note (H) Evaluation Current Stage of Sepsis: Ruled out Assessment/Plan Problem List (1) Abnormal vital signs: Impression: Tachycardia and hypertension. Initially started on clonidine, now up to 0.2. Continuing this 10/12: Adding on propranolol 10 mg p.o. twice daily (2) Dental infection: Impression: Recurrent. She was on clindamycin starting on 09/22/2025 for 20 doses, finished on 09/27. Now less than a week after completing this she has a pointing abscess in the gumline. Clindamycin was restarted. In the inpatient setting I am not sure there is much we can do about this. I have started chlorohexidine swabs to her mouth QID, after meals and at bedtime. She does not like this, but she is not able to swish and spit. will continue this indefinitely We have been discussing this case with a local OMFS. We have been informed that we do not have the correct equipment or set up. If this patient were discharged, he may be able to do something about this, but he is not able to address this in the inpatient setting (3) Polysubstance abuse: Impression: She has been in the hospital since 05/13/2025 UDS on presentation was positive for opiates, amphetamine, methamphetamine, cocaine She is out of the window for any acute withdrawal. She has not had any acute changes in her mental status for quite some time. (4) Altered mental status: Impression: Altered mentation likely secondary to polysubstance abuse UDS on presentation positive for opiates, amphetamine, methamphetamine, cocaine Patient was held in observation, and repeat CT and MRI were performed. MRI shows diffuse white matter hyperintense signal which may represent edema. Not the typical presentation of press Her altered mentation is not affected by her blood pressure, meaning it is not improved whenever her blood pressure is within normal limits Case discussed with neurology on 05/26, who recommended LP, but stated that this is likely sequela of hypoxic event from drug use. thiamine 500 mg IM 3 times daily started on 05 26,for 3 days, now on po thiamine daily Qualifiers: Altered mental status type: stupor Qualified Code(s): R40.1 - Stupor (5) Pubic bone fracture: Impression: X-ray hip on 05/25 shows moderately displaced right inferior pubic ramus fracture with extension in the medial acetabular column and suspicion for extension to the pelvic ring. Case was discussed with on-call orthopedist, who reports this is nonoperative. She is full weightbearing as tolerated but has not ambulated in many months. Currently not able to particpate with PT. She has been seen 1x for PT, no rehab potential. (6) Malnutrition: Impression: Severe protein calorie malnutrition given obvious muscle wasting, loss of subcutaneous fat, bedridden. She is eating less these days, has become more choosy with what she will eat. BMI increased from 14.9 to 17.6, currently down to 16.9. Not sure if this is variation with the bed scale. Qualifiers: Malnutrition type: unspecified type Qualified Code(s): E46 - Unspecified protein-calorie malnutrition (7) Effusion, right knee: Impression: not worse, voltaren gel PRN This patient's diagnosis and treatment plan was discussed this AM with attending physician as a part of multi disciplinary rounding meeting. nonbillable rounding Dispo: Court date 10/05, this was cancelled, pushed to 10/19. 10/12/25: This patient remains medically clear for discharge.
[2025-10-12] MEDS: PROPRANOLOL 10 MG TABLET PO SCH (16:36)
--- NOTE | 2025-10-13 11:46 | PROVIDER PROGRESS NOTE ---
Subjective Prog Note Date Prog Note Date: 10/13/25 Subjective Pt reports feeling: No change Current Medications Current Medications Current Medications: Current Medications Generic Name Dose Route Start Last Admin Trade Name Falguni PRN Reason Stop Dose Admin Acetaminophen 650 mg 05/21/25 14:24 10/12/25 22:24 Acetaminophen 325 Mg Tablet PO 650 mg Q4HR PRN Administration Pain 1 to 4, or Fever Apixaban 2.5 mg 05/29/25 21:00 10/13/25 08:43 Apixaban 2.5 Mg Tablet PO 2.5 mg BID WEST Administration Chlorhexidine Gluconate 15 ml 10/03/25 13:00 10/13/25 08:43 Chlorhexidine Gluconate 15 Ml Udc PO 15 ml QID WEST Administration Clonidine HCl 1 patch 10/10/25 10:00 10/10/25 09:44 Clonidine 0.2 Mg Patch TOP 1 patch Q7D WEST Administration Cyclobenzaprine HCl 10 mg 09/16/25 21:00 10/12/25 22:25 Cyclobenzaprine 10 Mg Tablet PO 10 mg HS WEST Administration Cyclobenzaprine HCl 5 mg 09/16/25 11:14 10/11/25 08:43 Cyclobenzaprine 10 Mg Tablet PO 5 mg BID PRN Administration Spasms Diclofenac Sodium 2 gm 09/19/25 14:31 10/12/25 03:30 Diclofenac Sodium 1% Gel 50 Gm Tube TOP 2 gm QID PRN Administration Mild Pain (Level 1-3) Docusate Sodium 250 - 500 mg 07/02/25 10:35 09/14/25 08:31 Docusate Sodium 250 Mg Capsule PO 250 mg DAILY PRN Administration Constipation Mirtazapine 15 mg 09/29/25 21:00 10/12/25 22:26 Mirtazapine 15 Mg Tablet PO 15 mg QPM WEST Administration Multi-Ingredient Ointment 1 applic 10/10/25 14:38 10/13/25 09:17 Emollient Cream 57 Gm Tube TOP 1 applic BID PRN Administration dry skin Polyethylene Glycol 17 gm 07/02/25 10:34 10/11/25 08:44 Polyethylene Glycol 3350 17 Gm Packet PO 17 gm DAILY PRN Administration Constipation Multivit/Folic Acid/Iron 1 tab 05/25/25 08:00 10/13/25 08:43 Vitamin Tablet PO 1 tab DAILYWM WEST Administration Propranolol HCl 10 mg 10/12/25 14:00 10/13/25 08:43 Propranolol 10 Mg Tablet PO 10 mg BID WEST Administration Tamsulosin HCl 0.4 mg 08/10/25 09:00 10/13/25 08:43 Tamsulosin 0.4 Mg Capsule PO 0.4 mg DAILY WEST Administration Zinc Oxide 113 gm 06/28/25 12:00 10/11/25 08:43 Cod Liver Oil/Zinc Oxide 113 Gm Tube TOP 1 applic PRN PRN Administration Skin Care Objective Vital Signs/Intake & Output Reviewed Vital Signs: Yes Vital Signs: Vital Signs x48h Temp Pulse Resp BP Pulse Ox 10/13/25 09:05 97.5 F L 112 H 16 149/93 H 93 Intake & Output: Intake & Output 10/10/25 10/11/25 10/12/25 10/13/25 23:59 23:59 23:59 23:59 Intake Total 1200 / 1200 1060 / 1060 1040 / 1040 240 / 240 Balance 1200 / 1200 1060 / 1060 1040 / 1040 240 / 240 Weight (kg) 49 kg Objective General Appearance: positive No acute distress and Alert Eyes Bilateral: positive Normal inspection ENT: positive Oral lesions (poor dentition) Neck: positive Nml inspection Respiratory: positive No respiratory distress Cardiovascular: positive Regular rate & rhythm Abdomen: positive No distention Skin: positive Color nml Extremities: positive Non-tender Neurologic/Psychiatric: positive Other (Tracks with eyes, will answer yes or no questions) Lab Results 09/19/25 12:56 09/19/25 12:56 Sepsis Event Note (H) Evaluation Current Stage of Sepsis: Ruled out Assessment/Plan Problem List (1) Abnormal vital signs: Impression: Tachycardia and hypertension. Initially started on clonidine, now up to 0.2. Continuing this 10/12: Adding on propranolol 10 mg p.o. twice daily (2) Dental infection: Impression: Recurrent. She was on clindamycin starting on 09/22/2025 for 20 doses, finished on 09/27. Now less than a week after completing this she has a pointing abscess in the gumline. Clindamycin was restarted. In the inpatient setting I am not sure there is much we can do about this. I have started chlorohexidine swabs to her mouth QID, after meals and at bedtime. She does not like this, but she is not able to swish and spit. will continue this indefinitely We have been discussing this case with a local [facility]. We have been informed that we do not have the correct equipment or set up. If this patient were discharged, he may be able to do something about this, but he is not able to address this in the inpatient setting (3) Polysubstance abuse: Impression: She has been in the hospital since 05/13/2025 UDS on presentation was positive for opiates, amphetamine, methamphetamine, cocaine She is out of the window for any acute withdrawal. She has not had any acute changes in her mental status for quite some time. (4) Altered mental status: Impression: Altered mentation likely secondary to polysubstance abuse UDS on presentation positive for opiates, amphetamine, methamphetamine, cocaine Patient was held in observation, and repeat CT and MRI were performed. MRI shows diffuse white matter hyperintense signal which may represent edema. Not the typical presentation of press Her altered mentation is not affected by her blood pressure, meaning it is not improved whenever her blood pressure is within normal limits Case discussed with neurology on 05/26, who recommended LP, but stated that this is likely sequela of hypoxic event from drug use. thiamine 500 mg IM 3 times daily started on 05 26,for 3 days, now on po thiamine daily Qualifiers: Altered mental status type: stupor Qualified Code(s): R40.1 - Stupor (5) Pubic bone fracture: Impression: X-ray hip on 05/25 shows moderately displaced right inferior pubic ramus fracture with extension in the medial acetabular column and suspicion for extension to the pelvic ring. Case was discussed with on-call orthopedist, who reports this is nonoperative. She is full weightbearing as tolerated but has not ambulated in many months. Currently not able to particpate with PT. She has been seen 1x for PT, no rehab potential. (6) Malnutrition: Impression: Severe protein calorie malnutrition given obvious muscle wasting, loss of subcutaneous fat, bedridden. She is eating less these days, has become more choosy with what she will eat. BMI increased from 14.9 to 17.6, currently down to 16.9. Not sure if this is variation with the bed scale. Qualifiers: Malnutrition type: unspecified type Qualified Code(s): E46 - Unspecified protein-calorie malnutrition (7) Effusion, right knee: Impression: not worse, voltaren gel PRN This patient's diagnosis and treatment plan was discussed this AM with attending physician as a part of multi disciplinary rounding meeting. nonbillable rounding Dispo: Court date 10/05, this was cancelled, pushed to 10/19. 10/13/25: This patient remains medically clear for discharge.
--- NOTE | 2025-10-14 11:11 | PROVIDER PROGRESS NOTE ---
Subjective Prog Note Date Prog Note Date: 10/14/25 Subjective Subjective: Not eating well, but continues to take her juices, smoothies and Ensure. offers no complaints to me today Current Medications Current Medications Current Medications: Current Medications Generic Name Dose Route Start Last Admin Trade Name Falguni PRN Reason Stop Dose Admin Acetaminophen 650 mg 05/21/25 14:24 10/13/25 12:33 Acetaminophen 325 Mg Tablet PO 650 mg Q4HR PRN Administration Pain 1 to 4, or Fever Apixaban 2.5 mg 05/29/25 21:00 10/14/25 07:57 Apixaban 2.5 Mg Tablet PO 2.5 mg BID WEST Administration Chlorhexidine Gluconate 15 ml 10/03/25 13:00 10/14/25 07:58 Chlorhexidine Gluconate 15 Ml Udc PO 15 ml QID WEST Administration Clonidine HCl 1 patch 10/10/25 10:00 10/10/25 09:44 Clonidine 0.2 Mg Patch TOP 1 patch Q7D WEST Administration Cyclobenzaprine HCl 10 mg 09/16/25 21:00 10/13/25 20:06 Cyclobenzaprine 10 Mg Tablet PO 10 mg HS WEST Administration Cyclobenzaprine HCl 5 mg 09/16/25 11:14 10/11/25 08:43 Cyclobenzaprine 10 Mg Tablet PO 5 mg BID PRN Administration Spasms Diclofenac Sodium 2 gm 09/19/25 14:31 10/12/25 03:30 Diclofenac Sodium 1% Gel 50 Gm Tube TOP 2 gm QID PRN Administration Mild Pain (Level 1-3) Docusate Sodium 250 - 500 mg 07/02/25 10:35 09/14/25 08:31 Docusate Sodium 250 Mg Capsule PO 250 mg DAILY PRN Administration Constipation Mirtazapine 15 mg 09/29/25 21:00 10/13/25 20:06 Mirtazapine 15 Mg Tablet PO 15 mg QPM WEST Administration Multi-Ingredient Ointment 1 applic 10/10/25 14:38 10/13/25 09:17 Emollient Cream 57 Gm Tube TOP 1 applic BID PRN Administration dry skin Polyethylene Glycol 17 gm 07/02/25 10:34 10/11/25 08:44 Polyethylene Glycol 3350 17 Gm Packet PO 17 gm DAILY PRN Administration Constipation Multivit/Folic Acid/Iron 1 tab 05/25/25 08:00 10/14/25 07:57 Vitamin Tablet PO 1 tab DAILYWM WEST Administration Propranolol HCl 10 mg 10/12/25 14:00 10/14/25 07:57 Propranolol 10 Mg Tablet PO 10 mg BID WEST Administration Tamsulosin HCl 0.4 mg 08/10/25 09:00 10/14/25 07:57 Tamsulosin 0.4 Mg Capsule PO 0.4 mg DAILY WEST Administration Zinc Oxide 113 gm 06/28/25 12:00 10/13/25 20:09 Cod Liver Oil/Zinc Oxide 113 Gm Tube TOP 1 applic PRN PRN Administration Skin Care Objective Vital Signs/Intake & Output Reviewed Vital Signs: Yes Vital Signs: Vital Signs x48h Temp Pulse Resp BP Pulse Ox 10/14/25 07:42 36.6 C 113 H 18 149/98 H 94 Intake & Output: Intake & Output 10/11/25 10/12/25 10/13/25 10/14/25 23:59 23:59 23:59 23:59 Intake Total 1060 / 1060 1040 / 1040 1200 / 1200 240 / 240 Balance 1060 / 1060 1040 / 1040 1200 / 1200 240 / 240 Weight (kg) 49 kg Objective General Appearance: positive No acute distress and Alert Eyes Bilateral: positive Normal inspection ENT: positive Oral lesions (poor dentition) Neck: positive Nml inspection Respiratory: positive No respiratory distress Cardiovascular: positive Regular rate & rhythm Abdomen: positive No distention Skin: positive Color nml Extremities: positive Non-tender Neurologic/Psychiatric: positive Other (Tracks with eyes, will answer yes or no questions) Lab Results 09/19/25 12:56 09/19/25 12:56 Sepsis Event Note (H) Evaluation Current Stage of Sepsis: Ruled out Assessment/Plan Problem List (1) Abnormal vital signs: Impression: Tachycardia and hypertension. Initially started on clonidine, now up to 0.2. Continuing this 10/12: Adding on propranolol 10 mg p.o. twice daily (2) Dental infection: Impression: Recurrent. She was on clindamycin starting on 09/22/2025 for 20 doses, finished on 09/27. Now less than a week after completing this she has a pointing abscess in the gumline. Clindamycin was restarted. She finished an additional course. In the inpatient setting I am not sure there is much we can do about this. I have started chlorohexidine swabs to her mouth QID, after meals and at bedtime. She does not like this, but she is not able to swish and spit. will continue this indefinitely We have been discussing this case with a local [facility]. We have been informed that we do not have the correct equipment or set up. If this patient were discharged, he may be able to do something about this, but he is not able to address this in the inpatient setting (3) Polysubstance abuse: Impression: She has been in the hospital since 05/13/2025 UDS on presentation was positive for opiates, amphetamine, methamphetamine, cocaine She is out of the window for any acute withdrawal. She has not had any acute changes in her mental status for quite some time. (4) Altered mental status: Impression: Altered mentation likely secondary to polysubstance abuse UDS on presentation positive for opiates, amphetamine, methamphetamine, cocaine Patient was held in observation, and repeat CT and MRI were performed. MRI shows diffuse white matter hyperintense signal which may represent edema. Not the typical presentation of press Her altered mentation is not affected by her blood pressure, meaning it is not improved whenever her blood pressure is within normal limits Case discussed with neurology on 05/26, who recommended LP, but stated that this is likely sequela of hypoxic event from drug use. thiamine 500 mg IM 3 times daily started on 05 26,for 3 days, now on po thiamine daily Qualifiers: Altered mental status type: stupor Qualified Code(s): R40.1 - Stupor (5) Pubic bone fracture: Impression: X-ray hip on 05/25 shows moderately displaced right inferior pubic ramus fracture with extension in the medial acetabular column and suspicion for extension to the pelvic ring. Case was discussed with on-call orthopedist, who reports this is nonoperative. She is full weightbearing as tolerated but has not ambulated in many months. Currently not able to particpate with PT. She has been seen 1x for PT, no rehab potential. (6) Malnutrition: Impression: Severe protein calorie malnutrition given obvious muscle wasting, loss of subcutaneous fat, bedridden. She is eating less these days, has become more choosy with what she will eat. BMI increased from 14.9 to 17.6, currently down to 16.9, back up to 17.4, I think there is variation in bed weights. Qualifiers: Malnutrition type: unspecified type Qualified Code(s): E46 - Unspecified protein-calorie malnutrition (7) Effusion, right knee: Impression: not worse, sergey JEWELL This patient's diagnosis and treatment plan was discussed this AM with attending physician as a part of multi disciplinary rounding meeting. nonbillable rounding Dispo: Court date 10/05, this was cancelled, pushed to 10/19. She had a visit with a potential adult family home today. She can likely go there once she has all legal paperwork in line. They will need one month of medications prescribed, this is reasonable. 10/14/25: This patient remains medically clear for discharge.
--- NOTE | 2025-10-15 10:27 | PROVIDER PROGRESS NOTE ---
Subjective Prog Note Date Prog Note Date: 10/15/25 Subjective Subjective: It is lunch time. She denies hunger. This AM, the MASTER RIGGER fed her with fingers (gloved), and she ate well vs using metal utensils. Tried plastic utensils at lunch time and this seems to have not worked as well. She continues to take liquids whenever offered (including when I walked in the room to see her today). Current Medications Current Medications Current Medications: Current Medications Generic Name Dose Route Start Last Admin Trade Name Falguni PRN Reason Stop Dose Admin Acetaminophen 650 mg 05/21/25 14:24 10/15/25 08:07 Acetaminophen 325 Mg Tablet PO 650 mg Q4HR PRN Administration Pain 1 to 4, or Fever Apixaban 2.5 mg 05/29/25 21:00 10/15/25 08:07 Apixaban 2.5 Mg Tablet PO 2.5 mg BID WEST Administration Chlorhexidine Gluconate 15 ml 10/03/25 13:00 10/15/25 08:07 Chlorhexidine Gluconate 15 Ml Udc PO 15 ml QID WEST Administration Clonidine HCl 1 patch 10/10/25 10:00 10/10/25 09:44 Clonidine 0.2 Mg Patch TOP 1 patch Q7D WEST Administration Cyclobenzaprine HCl 10 mg 09/16/25 21:00 10/14/25 21:21 Cyclobenzaprine 10 Mg Tablet PO 10 mg HS WEST Administration Cyclobenzaprine HCl 5 mg 09/16/25 11:14 10/11/25 08:43 Cyclobenzaprine 10 Mg Tablet PO 5 mg BID PRN Administration Spasms Diclofenac Sodium 2 gm 09/19/25 14:31 10/15/25 02:49 Diclofenac Sodium 1% Gel 50 Gm Tube TOP 2 gm QID PRN Administration Mild Pain (Level 1-3) Docusate Sodium 250 - 500 mg 07/02/25 10:35 09/14/25 08:31 Docusate Sodium 250 Mg Capsule PO 250 mg DAILY PRN Administration Constipation Mirtazapine 15 mg 09/29/25 21:00 10/14/25 21:21 Mirtazapine 15 Mg Tablet PO 15 mg QPM WEST Administration Multi-Ingredient Ointment 1 applic 10/10/25 14:38 10/13/25 09:17 Emollient Cream 57 Gm Tube TOP 1 applic BID PRN Administration dry skin Polyethylene Glycol 17 gm 08/14/25 10:34 10/11/25 08:44 Polyethylene Glycol 3350 17 Gm Packet PO 17 gm DAILY PRN Administration Constipation Multivit/Folic Acid/Iron 1 tab 05/25/25 08:00 10/15/25 08:06 Vitamin Tablet PO 1 tab DAILYWM WEST Administration Propranolol HCl 10 mg 10/12/25 14:00 10/15/25 08:18 Propranolol 10 Mg Tablet PO Not Given BID WEST Tamsulosin HCl 0.4 mg 08/10/25 09:00 10/15/25 08:06 Tamsulosin 0.4 Mg Capsule PO 0.4 mg DAILY WEST Administration Zinc Oxide 113 gm 06/28/25 12:00 10/15/25 02:50 Cod Liver Oil/Zinc Oxide 113 Gm Tube TOP 1 applic PRN PRN Administration Skin Care Objective Vital Signs/Intake & Output Reviewed Vital Signs: Yes Vital Signs: Vital Signs x48h Temp Pulse Resp BP Pulse Ox 10/15/25 09:00 36.5 C 95 19 105/69 95 10/15/25 08:09 36.5 C 95 19 105/69 95 Intake & Output: Intake & Output 10/12/25 10/13/25 10/14/25 10/15/25 23:59 23:59 23:59 23:59 Intake Total 1040 / 1040 1200 / 1200 1200 / 1200 360 / 360 Balance 1040 / 1040 1200 / 1200 1200 / 1200 360 / 360 Weight (kg) 49 kg Objective General Appearance: positive No acute distress and Alert Eyes Bilateral: positive Normal inspection ENT: positive Oral lesions (poor dentition) Neck: positive Nml inspection Respiratory: positive No respiratory distress Cardiovascular: positive Regular rate & rhythm Abdomen: positive No distention Skin: positive Color nml Extremities: positive Non-tender Neurologic/Psychiatric: positive Other (Tracks with eyes, will answer yes or no questions) Lab Results 09/19/25 12:56 09/19/25 12:56 Sepsis Event Note (H) Evaluation Current Stage of Sepsis: Ruled out Assessment/Plan Problem List (1) Abnormal vital signs: Impression: Tachycardia and hypertension. Initially started on clonidine, now up to 0.2. Continuing this 10/12: Adding on propranolol 10 mg p.o. twice daily (2) Dental infection: Impression: Recurrent. She was on clindamycin starting on 09/22/2025 for 20 doses, finished on 09/27. Now less than a week after completing this she has a pointing abscess in the gumline. Clindamycin was restarted. She finished an additional course. In the inpatient setting I am not sure there is much we can do about this. I have started chlorohexidine swabs to her mouth QID, after meals and at bedtime. She does not like this, but she is not able to swish and spit. will continue this indefinitely We have been discussing this case with a local [facility]. We have been informed that we do not have the correct equipment or set up. If this patient were discharged, he may be able to do something about this, but he is not able to address this in the inpatient setting (3) Polysubstance abuse: Impression: She has been in the hospital since 05/13/2025 UDS on presentation was positive for opiates, amphetamine, methamphetamine, cocaine She is out of the window for any acute withdrawal. She has not had any acute changes in her mental status for quite some time. (4) Altered mental status: Impression: Altered mentation likely secondary to polysubstance abuse UDS on presentation positive for opiates, amphetamine, methamphetamine, cocaine Patient was held in observation, and repeat CT and MRI were performed. MRI shows diffuse white matter hyperintense signal which may represent edema. Not the typical presentation of press Her altered mentation is not affected by her blood pressure, meaning it is not improved whenever her blood pressure is within normal limits Case discussed with neurology on 05/26, who recommended LP, but stated that this is likely sequela of hypoxic event from drug use. thiamine 500 mg IM 3 times daily started on 05 26,for 3 days, now on po thiamine daily Qualifiers: Altered mental status type: stupor Qualified Code(s): R40.1 - Stupor (5) Pubic bone fracture: Impression: X-ray hip on 05/25 shows moderately displaced right inferior pubic ramus fracture with extension in the medial acetabular column and suspicion for extension to the pelvic ring. Case was discussed with on-call orthopedist, who reports this is nonoperative. She is full weightbearing as tolerated but has not ambulated in many months. Currently not able to particpate with PT. She has been seen 1x for PT, no rehab potential. (6) Malnutrition: Impression: Severe protein calorie malnutrition given obvious muscle wasting, loss of subcutaneous fat, bedridden. She is eating less these days, has become more choosy with what she will eat. BMI increased from 14.9 to 17.6, currently down to 16.9, back up to 17.4, I think there is variation in bed weights. Qualifiers: Malnutrition type: unspecified type Qualified Code(s): E46 - Unspecified protein-calorie malnutrition (7) Effusion, right knee: Impression: not worse, voltaren gel PRN This patient's diagnosis and treatment plan was discussed this AM with attending physician as a part of multi disciplinary rounding meeting. nonbillable rounding Dispo: Court date 10/05, this was cancelled, pushed to 10/19. She had a visit with a potential adult family home today. She can likely go there once she has all legal paperwork in line. They will need one month of medications prescribed, this is reasonable. [facility] has requested a helton to make care more simple. My concern is that she have frequent caregiver contact. She does not eat or drink independently, even when food and water are placed within her reach. She needs to be offered fluids whenever a caregiver encounters her. I think placing a helton will not only put her at risk of UTI/sepsis, but will discourage frequent caregiver contact. 10/15/25: This patient remains medically clear for discharge.
--- NOTE | 2025-10-16 10:24 | PROVIDER PROGRESS NOTE ---
Subjective Prog Note Date Prog Note Date: 10/16/25 Subjective Subjective: She is non verbal today, playing with her quilt. She makes good eye contact with me. Current Medications Current Medications Current Medications: Current Medications Generic Name Dose Route Start Last Admin Trade Name Falguni PRN Reason Stop Dose Admin Acetaminophen 650 mg 05/21/25 14:24 10/16/25 08:27 Acetaminophen 325 Mg Tablet PO 650 mg Q4HR PRN Administration Pain 1 to 4, or Fever Apixaban 2.5 mg 05/29/25 21:00 10/16/25 08:27 Apixaban 2.5 Mg Tablet PO 2.5 mg BID WEST Administration Chlorhexidine Gluconate 15 ml 10/03/25 13:00 10/16/25 08:28 Chlorhexidine Gluconate 15 Ml Udc PO 15 ml QID WEST Administration Clonidine HCl 1 patch 10/10/25 10:00 10/10/25 09:44 Clonidine 0.2 Mg Patch TOP 1 patch Q7D WEST Administration Cyclobenzaprine HCl 10 mg 09/16/25 21:00 10/15/25 21:14 Cyclobenzaprine 10 Mg Tablet PO 10 mg HS WEST Administration Cyclobenzaprine HCl 5 mg 09/16/25 11:14 10/11/25 08:43 Cyclobenzaprine 10 Mg Tablet PO 5 mg BID PRN Administration Spasms Diclofenac Sodium 2 gm 09/19/25 14:31 10/15/25 19:22 Diclofenac Sodium 1% Gel 50 Gm Tube TOP 2 gm QID PRN Administration Mild Pain (Level 1-3) Docusate Sodium 250 - 500 mg 07/02/25 10:35 09/14/25 08:31 Docusate Sodium 250 Mg Capsule PO 250 mg DAILY PRN Administration Constipation Mirtazapine 15 mg 09/29/25 21:00 10/15/25 21:14 Mirtazapine 15 Mg Tablet PO 15 mg QPM WEST Administration Multi-Ingredient Ointment 1 applic 10/10/25 14:38 10/13/25 09:17 Emollient Cream 57 Gm Tube TOP 1 applic BID PRN Administration dry skin Polyethylene Glycol 17 gm 07/02/25 10:34 10/11/25 08:44 Polyethylene Glycol 3350 17 Gm Packet PO 17 gm DAILY PRN Administration Constipation Multivit/Folic Acid/Iron 1 tab 05/25/25 08:00 10/16/25 08:27 Vitamin Tablet PO 1 tab DAILYWM WEST Administration Propranolol HCl 10 mg 10/12/25 14:00 10/16/25 08:27 Propranolol 10 Mg Tablet PO 10 mg BID WEST Administration Tamsulosin HCl 0.4 mg 08/10/25 09:00 10/16/25 08:28 Tamsulosin 0.4 Mg Capsule PO 0.4 mg DAILY WEST Administration Zinc Oxide 113 gm 06/28/25 12:00 10/15/25 19:23 Cod Liver Oil/Zinc Oxide 113 Gm Tube TOP 1 applic PRN PRN Administration Skin Care Objective Vital Signs/Intake & Output Reviewed Vital Signs: Yes Vital Signs: Vital Signs x48h Temp Pulse Resp BP Pulse Ox 10/16/25 08:28 36.4 C L 104 H 18 137/98 H 96 Intake & Output: Intake & Output 10/13/25 10/14/25 10/15/25 10/16/25 23:59 23:59 23:59 23:59 Intake Total 1200 / 1200 1200 / 1200 1080 / 1080 240 / 240 Balance 1200 / 1200 1200 / 1200 1080 / 1080 240 / 240 Objective General Appearance: positive No acute distress and Alert Eyes Bilateral: positive Normal inspection ENT: positive Oral lesions (poor dentition) Neck: positive Nml inspection Respiratory: positive No respiratory distress Cardiovascular: positive Regular rate & rhythm Abdomen: positive No distention Skin: positive Color nml Extremities: positive Non-tender Neurologic/Psychiatric: positive Other (Tracks with eyes, will answer yes or no questions) Lab Results 09/19/25 12:56 09/19/25 12:56 Sepsis Event Note (H) Evaluation Current Stage of Sepsis: Ruled out Assessment/Plan Problem List (1) Abnormal vital signs: Impression: Tachycardia and hypertension. Initially started on clonidine, now up to 0.2. Continuing this 10/12: Adding on propranolol 10 mg p.o. twice daily (2) Dental infection: Impression: Recurrent. She was on clindamycin starting on 09/22/2025 for 20 doses, finished on 09/27. Now less than a week after completing this she has a pointing abscess in the gumline. Clindamycin was restarted. She finished an additional course. In the inpatient setting I am not sure there is much we can do about this. I have started chlorohexidine swabs to her mouth QID, after meals and at bedtime. She does not like this, but she is not able to swish and spit. will continue this indefinitely We have been discussing this case with a local [facility]. We have been informed that we do not have the correct equipment or set up. If this patient were discharged, he may be able to do something about this, but he is not able to address this in the inpatient setting (3) Polysubstance abuse: Impression: She has been in the hospital since 05/13/2025 UDS on presentation was positive for opiates, amphetamine, methamphetamine, cocaine She is out of the window for any acute withdrawal. She has not had any acute changes in her mental status for quite some time. (4) Altered mental status: Impression: Altered mentation likely secondary to polysubstance abuse UDS on presentation positive for opiates, amphetamine, methamphetamine, cocaine Patient was held in observation, and repeat CT and MRI were performed. MRI shows diffuse white matter hyperintense signal which may represent edema. Not the typical presentation of press Her altered mentation is not affected by her blood pressure, meaning it is not improved whenever her blood pressure is within normal limits Case discussed with neurology on 05/26, who recommended LP, but stated that this is likely sequela of hypoxic event from drug use. thiamine 500 mg IM 3 times daily started on 05 26,for 3 days, now on po thiamine daily Qualifiers: Altered mental status type: stupor Qualified Code(s): R40.1 - Stupor (5) Pubic bone fracture: Impression: X-ray hip on 05/25 shows moderately displaced right inferior pubic ramus fracture with extension in the medial acetabular column and suspicion for extension to the pelvic ring. Case was discussed with on-call orthopedist, who reports this is nonoperative. She is full weightbearing as tolerated but has not ambulated in many months. Currently not able to particpate with PT. She has been seen 1x for PT, no rehab potential. (6) Malnutrition: Impression: Severe protein calorie malnutrition given obvious muscle wasting, loss of subcutaneous fat, bedridden. She is eating less these days, has become more choosy with what she will eat. BMI increased from 14.9 to 17.6, currently down to 16.9, back up to 17.4, I think there is variation in bed weights. Qualifiers: Malnutrition type: unspecified type Qualified Code(s): E46 - Unspecified protein-calorie malnutrition (7) Effusion, right knee: Impression: not worse, voltaren gel PRN This patient's diagnosis and treatment plan was discussed this AM with attending physician as a part of multi disciplinary rounding meeting. nonbillable rounding Dispo: Court date 10/05, this was cancelled, pushed to 10/19. She had a visit with a potential adult family home. She can likely go there once she has all legal paperwork in line. They will need one month of medications prescribed, this is reasonable. [facility] has requested a helton to make care more simple. My concern is that she have frequent caregiver contact. She does not eat or drink independently, even when food and water are placed within her reach. She needs to be offered fluids whenever a caregiver encounters her. I think placing a helton will not only put her at risk of UTI/sepsis, but will discourage frequent caregiver contact. 10/16/25: This patient remains medically clear for discharge.
--- NOTE | 2025-10-17 13:55 | PROVIDER PROGRESS NOTE ---
Subjective Prog Note Date Prog Note Date: 10/17/25 Subjective Subjective: Sitting up in the bedside chair. was not eating but had a tooth break off. She handed it to the [employer]. She denies pain to me. Current Medications Current Medications Current Medications: Current Medications Generic Name Dose Route Start Last Admin Trade Name Freq PRN Reason Stop Dose Admin Acetaminophen 650 mg 05/21/25 14:24 10/16/25 19:54 Acetaminophen 325 Mg Tablet PO 650 mg Q4HR PRN Administration Pain 1 to 4, or Fever Apixaban 2.5 mg 05/29/25 21:00 10/17/25 08:49 Apixaban 2.5 Mg Tablet PO 2.5 mg BID WEST Administration Chlorhexidine Gluconate 15 ml 10/03/25 13:00 10/17/25 12:43 Chlorhexidine Gluconate 15 Ml Udc PO 15 ml QID WEST Administration Clonidine HCl 1 patch 10/10/25 10:00 10/17/25 10:05 Clonidine 0.2 Mg Patch TOP 1 patch Q7D WEST Administration Cyclobenzaprine HCl 10 mg 09/16/25 21:00 10/16/25 20:20 Cyclobenzaprine 10 Mg Tablet PO 10 mg HS WEST Administration Cyclobenzaprine HCl 5 mg 09/16/25 11:14 10/11/25 08:43 Cyclobenzaprine 10 Mg Tablet PO 5 mg BID PRN Administration Spasms Diclofenac Sodium 2 gm 09/19/25 14:31 10/17/25 13:02 Diclofenac Sodium 1% Gel 50 Gm Tube TOP 2 gm QID PRN Administration Mild Pain (Level 1-3) Docusate Sodium 250 - 500 mg 07/02/25 10:35 09/14/25 08:31 Docusate Sodium 250 Mg Capsule PO 250 mg DAILY PRN Administration Constipation Mirtazapine 15 mg 09/29/25 21:00 10/16/25 20:21 Mirtazapine 15 Mg Tablet PO 15 mg QPM WEST Administration Multi-Ingredient Ointment 1 applic 10/10/25 14:38 10/13/25 09:17 Emollient Cream 57 Gm Tube TOP 1 applic BID PRN Administration dry skin Polyethylene Glycol 17 gm 07/02/25 10:34 10/11/25 08:44 Polyethylene Glycol 3350 17 Gm Packet PO 17 gm DAILY PRN Administration Constipation Multivit/Folic Acid/Iron 1 tab 05/25/25 08:00 10/17/25 08:49 Vitamin Tablet PO 1 tab DAILYWM WEST Administration Propranolol HCl 10 mg 10/12/25 14:00 10/17/25 08:49 Propranolol 10 Mg Tablet PO 10 mg BID WEST Administration Tamsulosin HCl 0.4 mg 08/10/25 09:00 10/17/25 08:49 Tamsulosin 0.4 Mg Capsule PO 0.4 mg DAILY WEST Administration Zinc Oxide 113 gm 06/28/25 12:00 10/15/25 19:23 Cod Liver Oil/Zinc Oxide 113 Gm Tube TOP 1 applic PRN PRN Administration Skin Care Objective Vital Signs/Intake & Output Reviewed Vital Signs: Yes Vital Signs: Vital Signs x48h Temp Pulse Resp BP Pulse Ox 10/17/25 08:48 36.3 C L 104 H 24 132/85 H 94 Intake & Output: Intake & Output 10/14/25 10/15/25 10/16/25 10/17/25 23:59 23:59 23:59 23:59 Intake Total 1200 / 1200 1080 / 1080 1170 / 1170 220 / 220 Balance 1200 / 1200 1080 / 1080 1170 / 1170 220 / 220 Objective General Appearance: positive No acute distress and Alert Eyes Bilateral: positive Normal inspection ENT: positive Oral lesions (poor dentition) and Other (tooth #22 (?) broken off at the gumline, there is gingivitis, but not a pointing abscess) Neck: positive Nml inspection Respiratory: positive No respiratory distress Cardiovascular: positive Regular rate & rhythm Abdomen: positive No distention Skin: positive Color nml Extremities: positive Non-tender Neurologic/Psychiatric: positive Other (Tracks with eyes, will answer yes or no questions) Lab Results 09/19/25 12:56 09/19/25 12:56 Sepsis Event Note (H) Evaluation Current Stage of Sepsis: Ruled out Assessment/Plan Problem List (1) Abnormal vital signs: Impression: Tachycardia and hypertension. Initially started on clonidine, now up to 0.2. Continuing this 10/12: Adding on propranolol 10 mg p.o. twice daily. 10/17: propranolol does not seem to effect her HR significantly, I am going to increase to 20mg BID, and then continue to titrate to effect. Selected Entries 10/16/25 08:28 10/16/25 20:12 10/17/25 08:48 Pulse Rate [Brachial] 104 H 103 H 104 H Blood Pressure [Left Brachial artery] 113/76 Blood Pressure [Right Brachial artery] 137/98 H 132/85 H (2) Dental infection: Impression: Recurrent. She was on clindamycin starting on 09/22/2025 for 20 doses, finished on 09/27. Now less than a week after completing this she has a pointing abscess in the gumline. Clindamycin was restarted. She finished an additional course. In the inpatient setting I am not sure there is much we can do about this. I have started chlorohexidine swabs to her mouth QID, after meals and at bedtime. She does not like this, but she is not able to swish and spit. will continue this indefinitely We have been discussing this case with a local [facility]FS. We have been informed that we do not have the correct equipment or set up. If this patient were discharged, he may be able to do something about this, but he is not able to address this in the inpatient setting Tooth #22 ( I think it was this one) broke off today. There does not appear to be a severe infection here. I am continuing with peridex swabs QID. (3) Polysubstance abuse: Impression: She has been in the hospital since 05/13/2025 UDS on presentation was positive for opiates, amphetamine, methamphetamine, cocaine She is out of the window for any acute withdrawal. She has not had any acute changes in her mental status for quite some time. (4) Altered mental status: Impression: Altered mentation likely secondary to polysubstance abuse UDS on presentation positive for opiates, amphetamine, methamphetamine, cocaine Patient was held in observation, and repeat CT and MRI were performed. MRI shows diffuse white matter hyperintense signal which may represent edema. Not the typical presentation of press Her altered mentation is not affected by her blood pressure, meaning it is not improved whenever her blood pressure is within normal limits Case discussed with neurology on 05/26, who recommended LP, but stated that this is likely sequela of hypoxic event from drug use. thiamine 500 mg IM 3 times daily started on 05 26,for 3 days, now on po thiamine daily Qualifiers: Altered mental status type: stupor Qualified Code(s): R40.1 - Stupor (5) Pubic bone fracture: Impression: X-ray hip on 05/25 shows moderately displaced right inferior pubic ramus fracture with extension in the medial acetabular column and suspicion for extension to the pelvic ring. Case was discussed with on-call orthopedist, who reports this is nonoperative. She is full weightbearing as tolerated but has not ambulated in many months. Currently not able to particpate with PT. She has been seen 1x for PT, no rehab potential. (6) Malnutrition: Impression: Severe protein calorie malnutrition given obvious muscle wasting, loss of subcutaneous fat, bedridden. She is eating less these days, has become more choosy with what she will eat. BMI increased from 14.9 to 17.6, currently down to 16.9, back up to 17.4, I think there is variation in bed weights. Qualifiers: Malnutrition type: unspecified type Qualified Code(s): E46 - Unspecified protein-calorie malnutrition (7) Effusion, right knee: Impression: not worse, voltaren gel PRN This patient's diagnosis and treatment plan was discussed this AM with attending physician as a part of multi disciplinary rounding meeting. I have spent 26 minutes in the care of this patient today. This includes time [id number], and review of objective data in the chart. Dispo: Court date 10/05, this was cancelled, pushed to 10/19. She had a visit with a potential adult family home. She can likely go there once she has all legal paperwork in line. They will need one month of medications prescribed, this is reasonable. [facility] has requested a helton to make care more simple. My concern is that she have frequent caregiver contact. She does not eat or drink independently, even when food and water are placed within her reach. She needs to be offered fluids whenever a caregiver encounters her. I think placing a helton will not only put her at risk of UTI/sepsis, but will discourage frequent caregiver contact. 10/17/25: This patient remains medically clear for discharge.
[2025-10-17] MEDS: PROPRANOLOL 10 MG TABLET PO SCH (20:05)
--- NOTE | 2025-10-18 19:06 | PROVIDER PROGRESS NOTE ---
Subjective Prog Note Date Prog Note Date: 10/18/25 Subjective Subjective: resting quietly, no changes Current Medications Current Medications Current Medications: Current Medications Generic Name Dose Route Start Last Admin Trade Name Falguni PRN Reason Stop Dose Admin Acetaminophen 650 mg 05/21/25 14:24 10/16/25 19:54 Acetaminophen 325 Mg Tablet PO 650 mg Q4HR PRN Administration Pain 1 to 4, or Fever Apixaban 2.5 mg 05/29/25 21:00 10/18/25 08:35 Apixaban 2.5 Mg Tablet PO 2.5 mg BID WEST Administration Chlorhexidine Gluconate 15 ml 10/03/25 13:00 10/18/25 17:22 Chlorhexidine Gluconate 15 Ml Udc PO 15 ml QID WEST Administration Clonidine HCl 1 patch 10/10/25 10:00 10/17/25 10:05 Clonidine 0.2 Mg Patch TOP 1 patch Q7D WEST Administration Cyclobenzaprine HCl 10 mg 09/16/25 21:00 10/17/25 20:04 Cyclobenzaprine 10 Mg Tablet PO 10 mg HS WEST Administration Cyclobenzaprine HCl 5 mg 09/16/25 11:14 10/18/25 08:34 Cyclobenzaprine 10 Mg Tablet PO 5 mg BID PRN Administration Spasms Diclofenac Sodium 2 gm 09/19/25 14:31 10/18/25 08:35 Diclofenac Sodium 1% Gel 50 Gm Tube TOP 2 gm QID PRN Administration Mild Pain (Level 1-3) Docusate Sodium 250 - 500 mg 07/02/25 10:35 09/14/25 08:31 Docusate Sodium 250 Mg Capsule PO 250 mg DAILY PRN Administration Constipation Mirtazapine 15 mg 09/29/25 21:00 10/17/25 20:04 Mirtazapine 15 Mg Tablet PO 15 mg QPM WEST Administration Multi-Ingredient Ointment 1 applic 10/10/25 14:38 10/13/25 09:17 Emollient Cream 57 Gm Tube TOP 1 applic BID PRN Administration dry skin Polyethylene Glycol 17 gm 07/02/25 10:34 10/11/25 08:44 Polyethylene Glycol 3350 17 Gm Packet PO 17 gm DAILY PRN Administration Constipation Multivit/Folic Acid/Iron 1 tab 05/25/25 08:00 10/18/25 08:34 Vitamin Tablet PO 1 tab DAILYWM WEST Administration Propranolol HCl 20 mg 10/17/25 21:00 10/18/25 08:34 Propranolol 10 Mg Tablet PO 20 mg BID WEST Administration Tamsulosin HCl 0.4 mg 08/10/25 09:00 10/18/25 08:35 Tamsulosin 0.4 Mg Capsule PO 0.4 mg DAILY WEST Administration Zinc Oxide 113 gm 06/28/25 12:00 10/18/25 08:35 Cod Liver Oil/Zinc Oxide 113 Gm Tube TOP 1 applic PRN PRN Administration Skin Care Objective Vital Signs/Intake & Output Reviewed Vital Signs: Yes Vital Signs: Vital Signs x48h Temp Pulse Resp BP Pulse Ox 10/18/25 16:05 36.5 C 94 24 116/79 98 Intake & Output: Intake & Output 10/15/25 10/16/25 10/17/25 10/18/25 23:59 23:59 23:59 23:59 Intake Total 1080 / 1080 1170 / 1170 730 / 730 780 / 780 Balance 1080 / 1080 1170 / 1170 730 / 730 780 / 780 Objective General Appearance: positive No acute distress and Alert Eyes Bilateral: positive Normal inspection ENT: positive Other (poor dentition) Neck: positive Nml inspection Respiratory: positive No respiratory distress Cardiovascular: positive Regular rate & rhythm Abdomen: positive No distention Skin: positive Color nml Extremities: positive Non-tender Lab Results 09/19/25 12:56 09/19/25 12:56 Assessment/Plan Problem List (1) Abnormal vital signs: Impression: Tachycardia and hypertension. Initially started on clonidine, now up to 0.2. Continuing this 10/12: Adding on propranolol 10 mg p.o. twice daily. 10/17: propranolol does not seem to effect her HR significantly, I am going to increase to 20mg BID, and then continue to titrate to effect. 10/18: up titrate tomorrow if still tachycardic 2 Selected Entries 10/17/25 21:00 10/18/25 09:00 10/18/25 16:05 Pulse Rate [Brachial] 105 H 94 Pulse Rate [Radial] 119 H Blood Pressure [Left Brachial artery] 120/84 116/79 Blood Pressure [Right Brachial artery] 132/93 H (2) Dental infection: Impression: Recurrent. She was on clindamycin starting on 09/22/2025 for 20 doses, finished on 09/27. Now less than a week after completing this she has a pointing abscess in the gumline. Clindamycin was restarted. She finished an additional course. In the inpatient setting I am not sure there is much we can do about this. I have started chlorohexidine swabs to her mouth QID, after meals and at bedtime. She does not like this, but she is not able to swish and spit. will continue this indefinitely We have been discussing this case with a local OMFS. We have been informed that we do not have the correct equipment or set up. If this patient were discharged, he may be able to do something about this, but he is not able to address this in the inpatient setting Tooth #22 ( I think it was this one) broke. There does not appear to be a severe infection here. I am continuing with peridex swabs QID. (3) Polysubstance abuse: Impression: She has been in the hospital since 05/13/2025 UDS on presentation was positive for opiates, amphetamine, methamphetamine, cocaine She is out of the window for any acute withdrawal. She has not had any acute changes in her mental status for quite some time. (4) Altered mental status: Impression: Altered mentation likely secondary to polysubstance abuse UDS on presentation positive for opiates, amphetamine, methamphetamine, cocaine Patient was held in observation, and repeat CT and MRI were performed. MRI shows diffuse white matter hyperintense signal which may represent edema. Not the typical presentation of press Her altered mentation is not affected by her blood pressure, meaning it is not improved whenever her blood pressure is within normal limits Case discussed with neurology on 05/26, who recommended LP, but stated that this is likely sequela of hypoxic event from drug use. thiamine 500 mg IM 3 times daily started on 05 26,for 3 days, now on po thiamine daily Qualifiers: Altered mental status type: stupor Qualified Code(s): R40.1 - Stupor (5) Pubic bone fracture: Impression: X-ray hip on 05/25 shows moderately displaced right inferior pubic ramus fracture with extension in the medial acetabular column and suspicion for extension to the pelvic ring. Case was discussed with on-call orthopedist, who reports this is nonoperative. She is full weightbearing as tolerated but has not ambulated in many months. Currently not able to particpate with PT. She has been seen 1x for PT, no rehab potential. (6) Malnutrition: Impression: Severe protein calorie malnutrition given obvious muscle wasting, loss of subcutaneous fat, bedridden. She is eating less these days, has become more choosy with what she will eat. BMI increased from 14.9 to 17.6, currently down to 16.9, back up to 17.4, I think there is variation in bed weights. Qualifiers: Malnutrition type: unspecified type Qualified Code(s): E46 - Unspecified protein-calorie malnutrition (7) Effusion, right knee: Impression: not worse, voltaren gel PRN This patient's diagnosis and treatment plan was discussed this AM with attending physician as a part of multi disciplinary rounding meeting. I have spent 26 minutes in the care of this patient today. This includes time [id number], and review of objective data in the chart. Dispo: Court date 10/05, this was cancelled, pushed to 10/19. She had a visit with a potential adult family home. She can likely go there once she has all legal paperwork in line. They will need one month of medications prescribed, this is reasonable. [facility] has requested a helton to make care more simple. My concern is that she have frequent caregiver contact. She does not eat or drink independently, even when food and water are placed within her reach. She needs to be offered fluids whenever a caregiver encounters her. I think placing a helton will not only put her at risk of UTI/sepsis, but will discourage frequent caregiver contact. 10/18/25: This patient remains medically clear for discharge.
--- NOTE | 2025-10-19 19:33 | PROVIDER PROGRESS NOTE ---
Subjective Prog Note Date Prog Note Date: 10/19/25 Subjective Subjective: she is up to the chair this afternoon. she is eating 25% or less of meals, drinking well. Current Medications Current Medications Current Medications: Current Medications Generic Name Dose Route Start Last Admin Trade Name Freq PRN Reason Stop Dose Admin Acetaminophen 650 mg 05/21/25 14:24 10/19/25 17:37 Acetaminophen 325 Mg Tablet PO 650 mg Q4HR PRN Administration Pain 1 to 4, or Fever Apixaban 2.5 mg 05/29/25 21:00 10/19/25 08:47 Apixaban 2.5 Mg Tablet PO 2.5 mg BID WEST Administration Chlorhexidine Gluconate 15 ml 10/03/25 13:00 10/19/25 17:37 Chlorhexidine Gluconate 15 Ml Udc PO 15 ml QID WEST Administration Clonidine HCl 1 patch 10/10/25 10:00 10/17/25 10:05 Clonidine 0.2 Mg Patch TOP 1 patch Q7D WEST Administration Cyclobenzaprine HCl 10 mg 09/16/25 21:00 10/18/25 20:48 Cyclobenzaprine 10 Mg Tablet PO 10 mg HS WEST Administration Cyclobenzaprine HCl 5 mg 09/16/25 11:14 10/18/25 08:34 Cyclobenzaprine 10 Mg Tablet PO 5 mg BID PRN Administration Spasms Diclofenac Sodium 2 gm 09/19/25 14:31 10/19/25 01:27 Diclofenac Sodium 1% Gel 50 Gm Tube TOP 2 gm QID PRN Administration Mild Pain (Level 1-3) Docusate Sodium 250 - 500 mg 07/02/25 10:35 09/14/25 08:31 Docusate Sodium 250 Mg Capsule PO 250 mg DAILY PRN Administration Constipation Mirtazapine 15 mg 09/29/25 21:00 10/18/25 20:48 Mirtazapine 15 Mg Tablet PO 15 mg QPM WEST Administration Multi-Ingredient Ointment 1 applic 10/10/25 14:38 10/13/25 09:17 Emollient Cream 57 Gm Tube TOP 1 applic BID PRN Administration dry skin Polyethylene Glycol 17 gm 07/02/25 10:34 10/11/25 08:44 Polyethylene Glycol 3350 17 Gm Packet PO 17 gm DAILY PRN Administration Constipation Multivit/Folic Acid/Iron 1 tab 05/25/25 08:00 10/19/25 08:46 Vitamin Tablet PO 1 tab DAILYWM WEST Administration Propranolol HCl 20 mg 10/17/25 21:00 10/19/25 08:47 Propranolol 10 Mg Tablet PO 20 mg BID WEST Administration Tamsulosin HCl 0.4 mg 08/10/25 09:00 10/19/25 08:47 Tamsulosin 0.4 Mg Capsule PO 0.4 mg DAILY WEST Administration Zinc Oxide 113 gm 06/28/25 12:00 10/19/25 05:49 Cod Liver Oil/Zinc Oxide 113 Gm Tube TOP 1 applic PRN PRN Administration Skin Care Objective Vital Signs/Intake & Output Reviewed Vital Signs: Yes Vital Signs: Vital Signs x48h Temp Pulse Resp BP Pulse Ox 10/18/25 16:05 36.5 C 94 24 116/79 98 Intake & Output: Intake & Output 10/16/25 10/17/25 10/18/25 10/19/25 23:59 23:59 23:59 23:59 Intake Total 1170 / 1170 730 / 730 980 / 980 1070 / 1070 Balance 1170 / 1170 730 / 730 980 / 980 1070 / 1070 Objective General Appearance: positive No acute distress and Alert Eyes Bilateral: positive Normal inspection ENT: positive Other (poor dentition) Neck: positive Nml inspection Respiratory: positive No respiratory distress Cardiovascular: positive Regular rate & rhythm Abdomen: positive No distention Skin: positive Color nml Extremities: positive Non-tender Lab Results 09/19/25 12:56 09/19/25 12:56 Sepsis Event Note (H) Evaluation Current Stage of Sepsis: Ruled out Assessment/Plan Problem List (1) Abnormal vital signs: Impression: Tachycardia and hypertension. Initially started on clonidine, now up to 0.2. Continuing this 10/12: Adding on propranolol 10 mg p.o. twice daily. 10/17: propranolol does not seem to effect her HR significantly, I am going to increase to 20mg BID, and then continue to titrate to effect. 10/18: up titrate tomorrow if still tachycardic 10/19: remains tachy, increase to 40mg BIDSelected Entries 10/18/25 09:00 10/18/25 16:05 10/19/25 08:45 Pulse Rate [Brachial] 94 Pulse Rate [Posterior tibial] 112 H Pulse Rate [Radial] 119 H Blood Pressure [Left Brachial artery] 116/79 Blood Pressure [Right Ankle] 131/93 H Blood Pressure [Right Brachial artery] 132/93 H 2 (2) Dental infection: Impression: Recurrent. She was on clindamycin starting on 09/22/2025 for 20 doses, finished on 09/27. Now less than a week after completing this she has a pointing abscess in the gumline. Clindamycin was restarted. She finished an additional course. In the inpatient setting I am not sure there is much we can do about this. I have started chlorohexidine swabs to her mouth QID, after meals and at bedtime. She does not like this, but she is not able to swish and spit. will continue this indefinitely We have been discussing this case with a local OMFS. We have been informed that we do not have the correct equipment or set up. If this patient were discharged, he may be able to do something about this, but he is not able to address this in the inpatient setting Tooth #22 ( I think it was this one) broke. There does not appear to be a severe infection here. I am continuing with peridex swabs QID. (3) Polysubstance abuse: Impression: She has been in the hospital since 05/13/2025 UDS on presentation was positive for opiates, amphetamine, methamphetamine, cocaine She is out of the window for any acute withdrawal. She has not had any acute changes in her mental status for quite some time. (4) Altered mental status: Impression: Altered mentation likely secondary to polysubstance abuse UDS on presentation positive for opiates, amphetamine, methamphetamine, cocaine Patient was held in observation, and repeat CT and MRI were performed. MRI shows diffuse white matter hyperintense signal which may represent edema. Not the typical presentation of press Her altered mentation is not affected by her blood pressure, meaning it is not improved whenever her blood pressure is within normal limits Case discussed with neurology on 05/26, who recommended LP, but stated that this is likely sequela of hypoxic event from drug use. thiamine 500 mg IM 3 times daily started on 05 26,for 3 days, now on po thiamine daily Qualifiers: Altered mental status type: stupor Qualified Code(s): R40.1 - Stupor (5) Pubic bone fracture: Impression: X-ray hip on 05/25 shows moderately displaced right inferior pubic ramus fracture with extension in the medial acetabular column and suspicion for extension to the pelvic ring. Case was discussed with on-call orthopedist, who reports this is nonoperative. She is full weightbearing as tolerated but has not ambulated in many months. Currently not able to particpate with PT. She has been seen 1x for PT, no rehab potential. (6) Malnutrition: Impression: Severe protein calorie malnutrition given obvious muscle wasting, loss of subcutaneous fat, bedridden. She is eating less these days, has become more choosy with what she will eat. BMI increased from 14.9 to 17.6, currently down to 16.9, back up to 17.4, I think there is variation in bed weights. Qualifiers: Malnutrition type: unspecified type Qualified Code(s): E46 - Unspecified protein-calorie malnutrition (7) Effusion, right knee: Impression: not worse, voltaren gel PRN This patient's diagnosis and treatment plan was discussed this AM with attending physician as a part of multi disciplinary rounding meeting. non billable rounding today Dispo: Guardian appointed today [employer], Rosemary. She had a visit with a potential adult family home. She can likely go there once she has all legal paperwork in line. They will need one month of medications prescribed, this is reasonable. [facility] has requested a helton to make care more simple. My concern is that she have frequent caregiver contact. She does not eat or drink independently, even when food and water are placed within her reach. She needs to be offered fluids whenever a caregiver encounters her. I think placing a helton will not only put her at risk of UTI/sepsis, but will discourage frequent caregiver contact. 10/19/25: This patient remains medically clear for discharge.
--- NOTE | 2025-10-20 14:44 | PROVIDER PROGRESS NOTE ---
Subjective Prog Note Date Prog Note Date: 10/20/25 Subjective Subjective: in bed, listening to classic rock. She cannot tell me the artist, but when I ask her "Is this [place] [employer]" she nods yes. Current Medications Current Medications Current Medications: Current Medications Generic Name Dose Route Start Last Admin Trade Name Freq PRN Reason Stop Dose Admin Acetaminophen 650 mg 05/21/25 14:24 10/19/25 17:37 Acetaminophen 325 Mg Tablet PO 650 mg Q4HR PRN Administration Pain 1 to 4, or Fever Apixaban 2.5 mg 05/29/25 21:00 10/20/25 09:33 Apixaban 2.5 Mg Tablet PO 2.5 mg BID WEST Administration Chlorhexidine Gluconate 15 ml 10/03/25 13:00 10/20/25 14:05 Chlorhexidine Gluconate 15 Ml Udc PO 15 ml QID WEST Administration Clonidine HCl 1 patch 10/10/25 10:00 10/17/25 10:05 Clonidine 0.2 Mg Patch TOP 1 patch Q7D WEST Administration Cyclobenzaprine HCl 10 mg 09/16/25 21:00 10/19/25 21:17 Cyclobenzaprine 10 Mg Tablet PO 10 mg HS WEST Administration Cyclobenzaprine HCl 5 mg 09/16/25 11:14 10/18/25 08:34 Cyclobenzaprine 10 Mg Tablet PO 5 mg BID PRN Administration Spasms Diclofenac Sodium 2 gm 09/19/25 14:31 10/19/25 23:56 Diclofenac Sodium 1% Gel 50 Gm Tube TOP 2 gm QID PRN Administration Mild Pain (Level 1-3) Docusate Sodium 250 - 500 mg 07/02/25 10:35 09/14/25 08:31 Docusate Sodium 250 Mg Capsule PO 250 mg DAILY PRN Administration Constipation Mirtazapine 15 mg 09/29/25 21:00 10/19/25 21:16 Mirtazapine 15 Mg Tablet PO 15 mg QPM WEST Administration Multi-Ingredient Ointment 1 applic 10/10/25 14:38 10/13/25 09:17 Emollient Cream 57 Gm Tube TOP 1 applic BID PRN Administration dry skin Polyethylene Glycol 17 gm 07/02/25 10:34 10/11/25 08:44 Polyethylene Glycol 3350 17 Gm Packet PO 17 gm DAILY PRN Administration Constipation Multivit/Folic Acid/Iron 1 tab 05/25/25 08:00 10/20/25 09:33 Vitamin Tablet PO 1 tab DAILYWM WEST Administration Propranolol HCl 20 mg 10/17/25 21:00 10/20/25 09:33 Propranolol 10 Mg Tablet PO 20 mg BID WEST Administration Tamsulosin HCl 0.4 mg 08/10/25 09:00 10/20/25 09:33 Tamsulosin 0.4 Mg Capsule PO 0.4 mg DAILY WEST Administration Zinc Oxide 113 gm 06/28/25 12:00 10/20/25 06:50 Cod Liver Oil/Zinc Oxide 113 Gm Tube TOP 1 applic PRN PRN Administration Skin Care Objective Vital Signs/Intake & Output Reviewed Vital Signs: Yes Vital Signs: Vital Signs x48h Temp Pulse Resp BP Pulse Ox 10/20/25 09:00 36.4 C L 97 16 143/79 H 98 Intake & Output: Intake & Output 10/17/25 10/18/25 10/19/25 10/20/25 23:59 23:59 23:59 23:59 Intake Total 730 / 730 980 / 980 1310 / 1310 474 / 474 Balance 730 / 730 980 / 980 1310 / 1310 474 / 474 Weight (kg) 49 kg Objective General Appearance: positive No acute distress and Alert Eyes Bilateral: positive Normal inspection ENT: positive Other (poor dentition) Neck: positive Nml inspection Respiratory: positive No respiratory distress Cardiovascular: positive Regular rate & rhythm Abdomen: positive No distention Skin: positive Color nml Extremities: positive Non-tender Lab Results 09/19/25 12:56 09/19/25 12:56 Sepsis Event Note (H) Evaluation Current Stage of Sepsis: Ruled out Assessment/Plan Problem List (1) Abnormal vital signs: Impression: Tachycardia and hypertension. Initially started on clonidine, now up to 0.2. Continuing this 10/12: Adding on propranolol 10 mg p.o. twice daily. 10/17: propranolol does not seem to effect her HR significantly, I am going to increase to 20mg BID, and then continue to titrate to effect. 10/18: up titrate tomorrow if still tachycardic 10/19: remains tachy, increase to 40mg BID 2 (2) Dental infection: Impression: Recurrent. She was on clindamycin starting on 09/22/2025 for 20 doses, finished on 09/27. Now less than a week after completing this she has a pointing abscess in the gumline. Clindamycin was restarted. She finished an additional course. In the inpatient setting I am not sure there is much we can do about this. I have started chlorohexidine swabs to her mouth QID, after meals and at bedtime. She does not like this, but she is not able to swish and spit. will continue this indefinitely We have been discussing this case with a local OMFS. We have been informed that we do not have the correct equipment or set up. If this patient were discharged, he may be able to do something about this, but he is not able to address this in the inpatient setting Tooth #22 ( I think it was this one) broke. There does not appear to be a severe infection here. I am continuing with peridex swabs QID. (3) Polysubstance abuse: Impression: She has been in the hospital since 05/13/2025 UDS on presentation was positive for opiates, amphetamine, methamphetamine, cocaine She is out of the window for any acute withdrawal. She has not had any acute changes in her mental status for quite some time. (4) Altered mental status: Impression: Altered mentation likely secondary to polysubstance abuse UDS on presentation positive for opiates, amphetamine, methamphetamine, cocaine Patient was held in observation, and repeat CT and MRI were performed. MRI shows diffuse white matter hyperintense signal which may represent edema. Not the typical presentation of press Her altered mentation is not affected by her blood pressure, meaning it is not improved whenever her blood pressure is within normal limits Case discussed with neurology on 05/26, who recommended LP, but stated that this is likely sequela of hypoxic event from drug use. thiamine 500 mg IM 3 times daily started on 05 26,for 3 days, now on po thiamine daily Qualifiers: Altered mental status type: stupor Qualified Code(s): R40.1 - Stupor (5) Pubic bone fracture: Impression: X-ray hip on 05/25 shows moderately displaced right inferior pubic ramus fracture with extension in the medial acetabular column and suspicion for extension to the pelvic ring. Case was discussed with on-call orthopedist, who reports this is nonoperative. She is full weightbearing as tolerated but has not ambulated in many months. Currently not able to particpate with PT. She has been seen 1x for PT, no rehab potential. (6) Malnutrition: Impression: Severe protein calorie malnutrition given obvious muscle wasting, loss of subcutaneous fat, bedridden. She is eating less these days, has become more choosy with what she will eat. BMI increased from 14.9 to 17.6, currently down to 16.9, back up to 17.4, I think there is variation in bed weights. Qualifiers: Malnutrition type: unspecified type Qualified Code(s): E46 - Unspecified protein-calorie malnutrition (7) Effusion, right knee: Impression: not worse, voltaren gel PRN This patient's diagnosis and treatment plan was discussed this AM with attending physician as a part of multi disciplinary rounding meeting. non billable rounding today Dispo: Guardian appointed today [employer], Rosemary. She had a visit with a potential adult family home. She can likely go there once she has all legal paperwork in line. They will need one month of medications prescribed, this is reasonable. [facility] has requested a helton to make care more simple. My concern is that she have frequent caregiver contact. She does not eat or drink independently, even when food and water are placed within her reach. She needs to be offered fluids whenever a caregiver encounters her. I think placing a helton will not only put her at risk of UTI/sepsis, but will discourage frequent caregiver contact. 10/20/25: This patient remains medically clear for discharge.
[2025-10-21] MEDS: PROPRANOLOL 40 MG TABLET PO SCH (08:39)
--- NOTE | 2025-10-21 18:57 | PROVIDER PROGRESS NOTE ---
Subjective Prog Note Date Prog Note Date: 10/21/25 Subjective Subjective: She is sitting up in bed, answering my questions today. denies needs. Current Medications Current Medications Current Medications: Current Medications Generic Name Dose Route Start Last Admin Trade Name Freq PRN Reason Stop Dose Admin Acetaminophen 650 mg 05/21/25 14:24 10/19/25 17:37 Acetaminophen 325 Mg Tablet PO 650 mg Q4HR PRN Administration Pain 1 to 4, or Fever Apixaban 2.5 mg 05/29/25 21:00 10/21/25 08:39 Apixaban 2.5 Mg Tablet PO 2.5 mg BID WEST Administration Chlorhexidine Gluconate 15 ml 10/03/25 13:00 10/21/25 17:53 Chlorhexidine Gluconate 15 Ml Udc PO 15 ml QID WEST Administration Clonidine HCl 1 patch 10/10/25 10:00 10/17/25 10:05 Clonidine 0.2 Mg Patch TOP 1 patch Q7D WEST Administration Cyclobenzaprine HCl 10 mg 09/16/25 21:00 10/20/25 20:22 Cyclobenzaprine 10 Mg Tablet PO 10 mg HS WEST Administration Cyclobenzaprine HCl 5 mg 09/16/25 11:14 10/21/25 08:39 Cyclobenzaprine 10 Mg Tablet PO 5 mg BID PRN Administration Spasms Diclofenac Sodium 2 gm 09/19/25 14:31 10/21/25 08:38 Diclofenac Sodium 1% Gel 50 Gm Tube TOP 2 gm QID PRN Administration Mild Pain (Level 1-3) Docusate Sodium 250 - 500 mg 07/02/25 10:35 09/14/25 08:31 Docusate Sodium 250 Mg Capsule PO 250 mg DAILY PRN Administration Constipation Mirtazapine 15 mg 09/29/25 21:00 10/20/25 20:21 Mirtazapine 15 Mg Tablet PO 15 mg QPM WEST Administration Multi-Ingredient Ointment 1 applic 10/10/25 14:38 10/13/25 09:17 Emollient Cream 57 Gm Tube TOP 1 applic BID PRN Administration dry skin Polyethylene Glycol 17 gm 07/02/25 10:34 10/21/25 08:37 Polyethylene Glycol 3350 17 Gm Packet PO 17 gm DAILY PRN Administration Constipation Multivit/Folic Acid/Iron 1 tab 05/25/25 08:00 10/21/25 08:37 Vitamin Tablet PO 1 tab DAILYWM WEST Administration Propranolol HCl 40 mg 10/21/25 09:00 10/21/25 08:39 Propranolol 40 Mg Tablet PO 40 mg BID WEST Administration Tamsulosin HCl 0.4 mg 08/10/25 09:00 10/21/25 08:39 Tamsulosin 0.4 Mg Capsule PO 0.4 mg DAILY WEST Administration Zinc Oxide 113 gm 06/28/25 12:00 10/21/25 08:38 Cod Liver Oil/Zinc Oxide 113 Gm Tube TOP 1 applic PRN PRN Administration Skin Care Objective Vital Signs/Intake & Output Reviewed Vital Signs: Yes Vital Signs: Vital Signs x48h Temp Pulse Resp BP Pulse Ox 10/21/25 16:05 36.5 C 79 18 116/79 97 Intake & Output: Intake & Output 10/18/25 10/19/25 10/20/25 10/21/25 23:59 23:59 23:59 23:59 Intake Total 980 / 980 1310 / 1310 914 / 914 580 / 580 Balance 980 / 980 1310 / 1310 914 / 914 580 / 580 Weight (kg) 49 kg Objective General Appearance: positive No acute distress and Alert Eyes Bilateral: positive Normal inspection ENT: positive Other (poor dentition) Neck: positive Nml inspection Respiratory: positive No respiratory distress Cardiovascular: positive Regular rate & rhythm Abdomen: positive No distention Skin: positive Color nml Extremities: positive Non-tender Lab Results 09/19/25 12:56 09/19/25 12:56 Sepsis Event Note (H) Evaluation Current Stage of Sepsis: Ruled out Assessment/Plan Problem List (1) Abnormal vital signs: Impression: Tachycardia and hypertension. Initially started on clonidine, now up to 0.2. Continuing this 10/12: Adding on propranolol 10 mg p.o. twice daily. 10/17: propranolol does not seem to effect her HR significantly, I am going to increase to 20mg BID, and then continue to titrate to effect. 10/18: up titrate tomorrow if still tachycardic 10/19: remains tachy, increase to 40mg BID 10/21: The 40mg is working well for her. no changes. Selected Entries 10/20/25 09:00 10/20/25 16:10 10/21/25 08:40 Pulse Rate [Brachial] 97 85 98 Blood Pressure [Right Brachial artery] 143/79 H 101/67 146/89 H 10/21/25 16:05 Pulse Rate [Brachial] 79 Blood Pressure [Right Brachial artery] 116/79 2 (2) Dental infection: Impression: Recurrent. She was on clindamycin starting on 09/22/2025 for 20 doses, finished on 09/27. Now less than a week after completing this she has a pointing abscess in the gumline. Clindamycin was restarted. She finished an additional course. In the inpatient setting I am not sure there is much we can do about this. I have started chlorohexidine swabs to her mouth QID, after meals and at bedtime. She does not like this, but she is not able to swish and spit. will continue this indefinitely We have been discussing this case with a local OMFS. We have been informed that we do not have the correct equipment or set up. If this patient were discharged, he may be able to do something about this, but he is not able to address this in the inpatient setting Tooth #22 ( I think it was this one) broke. There does not appear to be a severe infection here. I am continuing with peridex swabs QID. (3) Polysubstance abuse: Impression: She has been in the hospital since 05/13/2025 UDS on presentation was positive for opiates, amphetamine, methamphetamine, cocaine She is out of the window for any acute withdrawal. She has not had any acute changes in her mental status for quite some time. (4) Altered mental status: Impression: Altered mentation likely secondary to polysubstance abuse UDS on presentation positive for opiates, amphetamine, methamphetamine, cocaine Patient was held in observation, and repeat CT and MRI were performed. MRI shows diffuse white matter hyperintense signal which may represent edema. Not the typical presentation of press Her altered mentation is not affected by her blood pressure, meaning it is not improved whenever her blood pressure is within normal limits Case discussed with neurology on 05/26, who recommended LP, but stated that this is likely sequela of hypoxic event from drug use. thiamine 500 mg IM 3 times daily started on 05 26,for 3 days, now on po thiamine daily Qualifiers: Altered mental status type: stupor Qualified Code(s): R40.1 - Stupor (5) Pubic bone fracture: Impression: X-ray hip on 05/25 shows moderately displaced right inferior pubic ramus fracture with extension in the medial acetabular column and suspicion for extension to the pelvic ring. Case was discussed with on-call orthopedist, who reports this is nonoperative. She is full weightbearing as tolerated but has not ambulated in many months. Currently not able to particpate with PT. She has been seen 1x for PT, no rehab potential. (6) Malnutrition: Impression: Severe protein calorie malnutrition given obvious muscle wasting, loss of subcutaneous fat, bedridden. She is eating less these days, has become more choosy with what she will eat. BMI increased from 14.9 to 17.6, currently down to 16.9, back up to 17.4, I think there is variation in bed weights. Qualifiers: Malnutrition type: unspecified type Qualified Code(s): E46 - Unspecified protein-calorie malnutrition (7) Effusion, right knee: Impression: not worse, voltaren gel PRN This patient's diagnosis and treatment plan was discussed this AM with attending physician as a part of multi disciplinary rounding meeting. non billable rounding today Dispo: Guardian appointed today [employer], Rosemary. She had a visit with a potential adult family home. She can likely go there once she has all legal paperwork in line. They will need one month of medications prescribed, this is reasonable. [facility] has requested a helton to make care more simple. My concern is that she have frequent caregiver contact. She does not eat or drink independently, even when food and water are placed within her reach. She needs to be offered fluids whenever a caregiver encounters her. I think placing a helton will not only put her at risk of UTI/sepsis, but will discourage frequent caregiver contact. 10/21/25: This patient remains medically clear for discharge.
--- NOTE | 2025-10-22 13:44 | PROVIDER PROGRESS NOTE ---
Subjective Prog Note Date Prog Note Date: 10/22/25 Subjective Pt reports feeling: No change Current Medications Current Medications Current Medications: Current Medications Generic Name Dose Route Start Last Admin Trade Name Falguni PRN Reason Stop Dose Admin Acetaminophen 650 mg 05/21/25 14:24 10/19/25 17:37 Acetaminophen 325 Mg Tablet PO 650 mg Q4HR PRN Administration Pain 1 to 4, or Fever Apixaban 2.5 mg 05/29/25 21:00 10/22/25 08:18 Apixaban 2.5 Mg Tablet PO 2.5 mg BID WEST Administration Chlorhexidine Gluconate 15 ml 10/03/25 13:00 10/22/25 08:18 Chlorhexidine Gluconate 15 Ml Udc PO 15 ml QID WETS Administration Clonidine HCl 1 patch 10/10/25 10:00 10/17/25 10:05 Clonidine 0.2 Mg Patch TOP 1 patch Q7D WEST Administration Cyclobenzaprine HCl 10 mg 09/16/25 21:00 10/21/25 21:14 Cyclobenzaprine 10 Mg Tablet PO 10 mg HS WEST Administration Cyclobenzaprine HCl 5 mg 09/16/25 11:14 10/21/25 08:39 Cyclobenzaprine 10 Mg Tablet PO 5 mg BID PRN Administration Spasms Diclofenac Sodium 2 gm 09/19/25 14:31 10/22/25 05:18 Diclofenac Sodium 1% Gel 50 Gm Tube TOP 2 gm QID PRN Administration Mild Pain (Level 1-3) Docusate Sodium 250 - 500 mg 07/02/25 10:35 09/14/25 08:31 Docusate Sodium 250 Mg Capsule PO 250 mg DAILY PRN Administration Constipation Mirtazapine 15 mg 09/29/25 21:00 10/21/25 21:13 Mirtazapine 15 Mg Tablet PO 15 mg QPM WEST Administration Multi-Ingredient Ointment 1 applic 10/10/25 14:38 10/13/25 09:17 Emollient Cream 57 Gm Tube TOP 1 applic BID PRN Administration dry skin Polyethylene Glycol 17 gm 07/02/25 10:34 10/21/25 08:37 Polyethylene Glycol 3350 17 Gm Packet PO 17 gm DAILY PRN Administration Constipation Multivit/Folic Acid/Iron 1 tab 05/25/25 08:00 10/22/25 08:18 Vitamin Tablet PO 1 tab DAILYWM WEST Administration Propranolol HCl 40 mg 12/03/25 09:00 10/22/25 08:18 Propranolol 40 Mg Tablet PO 40 mg BID WEST Administration Tamsulosin HCl 0.4 mg 08/10/25 09:00 10/22/25 08:18 Tamsulosin 0.4 Mg Capsule PO 0.4 mg DAILY WEST Administration Zinc Oxide 113 gm 06/28/25 12:00 10/22/25 05:19 Cod Liver Oil/Zinc Oxide 113 Gm Tube TOP 1 applic PRN PRN Administration Skin Care Objective Vital Signs/Intake & Output Reviewed Vital Signs: Yes Vital Signs: Vital Signs x48h Temp Pulse Resp BP Pulse Ox 10/22/25 09:00 98.1 F 79 18 110/70 98 Intake & Output: Intake & Output 10/19/25 10/20/25 10/21/25 10/22/25 23:59 23:59 23:59 23:59 Intake Total 1310 / 1310 914 / 914 700 / 700 360 / 360 Balance 1310 / 1310 914 / 914 700 / 700 360 / 360 Weight (kg) 49 kg Objective General Appearance: positive No acute distress and Alert Eyes Bilateral: positive Normal inspection ENT: positive Other (poor dentition) Neck: positive Nml inspection Respiratory: positive No respiratory distress Cardiovascular: positive Regular rate & rhythm Abdomen: positive No distention Skin: positive Color nml Extremities: positive Non-tender Lab Results 09/19/25 12:56 09/19/25 12:56 Sepsis Event Note (H) Evaluation Current Stage of Sepsis: Ruled out Assessment/Plan Problem List (1) Abnormal vital signs: Impression: Tachycardia and hypertension. Initially started on clonidine, now up to 0.2. Continuing this 10/12: Adding on propranolol 10 mg p.o. twice daily. 10/17: propranolol does not seem to effect her HR significantly, I am going to increase to 20mg BID, and then continue to titrate to effect. 10/18: up titrate tomorrow if still tachycardic 10/19: remains tachy, increase to 40mg BID 10/21: The 40mg is working well for her. no changes. (2) Dental infection: Impression: Recurrent. She was on clindamycin starting on 09/22/2025 for 20 doses, finished on 09/27. Now less than a week after completing this she has a pointing abscess in the gumline. Clindamycin was restarted. She finished an additional course. In the inpatient setting I am not sure there is much we can do about this. I have started chlorohexidine swabs to her mouth QID, after meals and at bedtime. She does not like this, but she is not able to swish and spit. will continue this indefinitely We have been discussing this case with a local OMFS. We have been informed that we do not have the correct equipment or set up. If this patient were discharged, he may be able to do something about this, but he is not able to address this in the inpatient setting Tooth #22 ( I think it was this one) broke. There does not appear to be a severe infection here. I am continuing with peridex swabs QID. (3) Polysubstance abuse: Impression: She has been in the hospital since 05/13/2025 UDS on presentation was positive for opiates, amphetamine, methamphetamine, cocaine She is out of the window for any acute withdrawal. She has not had any acute changes in her mental status for quite some time. (4) Altered mental status: Impression: Altered mentation likely secondary to polysubstance abuse UDS on presentation positive for opiates, amphetamine, methamphetamine, cocaine Patient was held in observation, and repeat CT and MRI were performed. MRI shows diffuse white matter hyperintense signal which may represent edema. Not the typical presentation of press Her altered mentation is not affected by her blood pressure, meaning it is not improved whenever her blood pressure is within normal limits Case discussed with neurology on 05/26, who recommended LP, but stated that this is likely sequela of hypoxic event from drug use. thiamine 500 mg IM 3 times daily started on 05/26,for 3 days, now on po thiamine daily Qualifiers: Altered mental status type: stupor Qualified Code(s): R40.1 - Stupor (5) Pubic bone fracture: Impression: X-ray hip on 05/25 shows moderately displaced right inferior pubic ramus fracture with extension in the medial acetabular column and suspicion for extension to the pelvic ring. Case was discussed with on-call orthopedist, who reports this is nonoperative. She is full weightbearing as tolerated but has not ambulated in many months. Currently not able to particpate with PT. She has been seen 1x for PT, no rehab potential. (6) Malnutrition: Impression: Severe protein calorie malnutrition given obvious muscle wasting, loss of subcutaneous fat, bedridden. She is eating less these days, has become more choosy with what she will eat. BMI increased from 14.9 to 17.6, currently down to 16.9, back up to 17.4, I think there is variation in bed weights. Qualifiers: Malnutrition type: unspecified type Qualified Code(s): E46 - Unspecified protein-calorie malnutrition (7) Effusion, right knee: Impression: not worse, voltaren gel PRN This patient's diagnosis and treatment plan was discussed this AM with attending physician as a part of multi disciplinary rounding meeting. non billable rounding today Dispo: Guardian appointed today [employer], Rosemary. She had a visit with a potential adult family home. She can likely go there once she has all legal paperwork in line. They will need one month of medications prescribed, this is reasonable. [facility] has requested a helton to make care more simple. My concern is that she have frequent caregiver contact. She does not eat or drink independently, even when food and water are placed within her reach. She needs to be offered fluids whenever a caregiver encounters her. I think placing a helton will not only put her at risk of UTI/sepsis, but will discourage frequent caregiver contact. 10/22: [facility] assessment today 10/22/25: This patient remains medically clear for discharge.
--- NOTE | 2025-10-23 11:20 | PROVIDER PROGRESS NOTE ---
Subjective Prog Note Date Prog Note Date: 10/23/25 Subjective Pt reports feeling: No change Current Medications Current Medications Current Medications: Current Medications Generic Name Dose Route Start Last Admin Trade Name Falguni PRN Reason Stop Dose Admin Acetaminophen 650 mg 05/21/25 14:24 10/22/25 20:53 Acetaminophen 325 Mg Tablet PO 650 mg Q4HR PRN Administration Pain 1 to 4, or Fever Apixaban 2.5 mg 05/29/25 21:00 10/23/25 08:45 Apixaban 2.5 Mg Tablet PO 2.5 mg BID WEST Administration Chlorhexidine Gluconate 15 ml 10/03/25 13:00 10/23/25 08:45 Chlorhexidine Gluconate 15 Ml Udc PO 15 ml QID WEST Administration Clonidine HCl 1 patch 10/10/25 10:00 10/17/25 10:05 Clonidine 0.2 Mg Patch TOP 1 patch Q7D WEST Administration Cyclobenzaprine HCl 10 mg 09/16/25 21:00 10/22/25 20:53 Cyclobenzaprine 10 Mg Tablet PO 10 mg HS WEST Administration Cyclobenzaprine HCl 5 mg 09/16/25 11:14 10/21/25 08:39 Cyclobenzaprine 10 Mg Tablet PO 5 mg BID PRN Administration Spasms Diclofenac Sodium 2 gm 09/19/25 14:31 10/23/25 00:13 Diclofenac Sodium 1% Gel 50 Gm Tube TOP 2 gm QID PRN Administration Mild Pain (Level 1-3) Docusate Sodium 250 - 500 mg 07/02/25 10:35 09/14/25 08:31 Docusate Sodium 250 Mg Capsule PO 250 mg DAILY PRN Administration Constipation Mirtazapine 15 mg 09/29/25 21:00 10/22/25 20:53 Mirtazapine 15 Mg Tablet PO 15 mg QPM WEST Administration Multi-Ingredient Ointment 1 applic 10/10/25 14:38 10/13/25 09:17 Emollient Cream 57 Gm Tube TOP 1 applic BID PRN Administration dry skin Polyethylene Glycol 17 gm 07/02/25 10:34 10/23/25 08:43 Polyethylene Glycol 3350 17 Gm Packet PO 17 gm DAILY PRN Administration Constipation Multivit/Folic Acid/Iron 1 tab 05/25/25 08:00 10/23/25 08:45 Vitamin Tablet PO 1 tab DAILYWM WEST Administration Propranolol HCl 40 mg 10/21/25 09:00 10/23/25 08:45 Propranolol 40 Mg Tablet PO 40 mg BID WEST Administration Tamsulosin HCl 0.4 mg 08/10/25 09:00 10/23/25 08:43 Tamsulosin 0.4 Mg Capsule PO 0.4 mg DAILY WEST Administration Zinc Oxide 113 gm 06/28/25 12:00 10/22/25 05:19 Cod Liver Oil/Zinc Oxide 113 Gm Tube TOP 1 applic PRN PRN Administration Skin Care Objective Vital Signs/Intake & Output Reviewed Vital Signs: Yes Vital Signs: Vital Signs x48h Temp Pulse Resp BP Pulse Ox 10/23/25 07:25 97.7 F 85 16 113/71 98 Intake & Output: Intake & Output 10/20/25 10/21/25 10/22/25 10/23/25 23:59 23:59 23:59 23:59 Intake Total 914 / 914 700 / 700 940 / 940 240 / 240 Balance 914 / 914 700 / 700 940 / 940 240 / 240 Objective General Appearance: positive No acute distress and Alert Eyes Bilateral: positive Normal inspection ENT: positive Other (poor dentition) Neck: positive Nml inspection Respiratory: positive No respiratory distress Cardiovascular: positive Regular rate & rhythm Abdomen: positive No distention Skin: positive Color nml Extremities: positive Non-tender Lab Results 09/19/25 12:56 09/19/25 12:56 Sepsis Event Note (H) Evaluation Current Stage of Sepsis: Ruled out Assessment/Plan Problem List (1) Abnormal vital signs: Impression: Tachycardia and hypertension. Initially started on clonidine, now up to 0.2. Continuing this 10/12: Adding on propranolol 10 mg p.o. twice daily. 10/17: propranolol does not seem to effect her HR significantly, I am going to increase to 20mg BID, and then continue to titrate to effect. 10/18: up titrate tomorrow if still tachycardic 10/19: remains tachy, increase to 40mg BID 10/21: The 40mg is working well for her. no changes. (2) Dental infection: Impression: Recurrent. She was on clindamycin starting on 09/22/2025 for 20 doses, finished on 09/27. Now less than a week after completing this she has a pointing abscess in the gumline. Clindamycin was restarted. She finished an additional course. In the inpatient setting I am not sure there is much we can do about this. I have started chlorohexidine swabs to her mouth QID, after meals and at bedtime. She does not like this, but she is not able to swish and spit. will continue this indefinitely We have been discussing this case with a local OMFS. We have been informed that we do not have the correct equipment or set up. If this patient were discharged, he may be able to do something about this, but he is not able to address this in the inpatient setting Tooth #22 ( I think it was this one) broke. There does not appear to be a severe infection here. I am continuing with peridex swabs QID. (3) Polysubstance abuse: Impression: She has been in the hospital since 05/13/2025 UDS on presentation was positive for opiates, amphetamine, methamphetamine, cocaine She is out of the window for any acute withdrawal. She has not had any acute changes in her mental status for quite some time. (4) Altered mental status: Impression: Altered mentation likely secondary to polysubstance abuse UDS on presentation positive for opiates, amphetamine, methamphetamine, cocaine Patient was held in observation, and repeat CT and MRI were performed. MRI shows diffuse white matter hyperintense signal which may represent edema. Not the typical presentation of press Her altered mentation is not affected by her blood pressure, meaning it is not improved whenever her blood pressure is within normal limits Case discussed with neurology on 05/26, who recommended LP, but stated that this is likely sequela of hypoxic event from drug use. thiamine 500 mg IM 3 times daily started on 05/26,for 3 days, now on po thiamine daily Qualifiers: Altered mental status type: stupor Qualified Code(s): R40.1 - Stupor (5) Pubic bone fracture: Impression: X-ray hip on 05/25 shows moderately displaced right inferior pubic ramus fracture with extension in the medial acetabular column and suspicion for extension to the pelvic ring. Case was discussed with on-call orthopedist, who reports this is nonoperative. She is full weightbearing as tolerated but has not ambulated in many months. Currently not able to particpate with PT. She has been seen 1x for PT, no rehab potential. (6) Malnutrition: Impression: Severe protein calorie malnutrition given obvious muscle wasting, loss of subcutaneous fat, bedridden. She is eating less these days, has become more choosy with what she will eat. BMI increased from 14.9 to 17.6, currently down to 16.9, back up to 17.4, I think there is variation in bed weights. Qualifiers: Malnutrition type: unspecified type Qualified Code(s): E46 - Unspecified protein-calorie malnutrition (7) Effusion, right knee: Impression: not worse, voltaren gel PRN This patient's diagnosis and treatment plan was discussed this AM with attending physician as a part of multi disciplinary rounding meeting. non billable rounding today Dispo: Guardian appointed today [employer], Rosemary. She had a visit with a potential adult family home. She can likely go there once she has all legal paperwork in line. They will need one month of medications prescribed, this is reasonable. [facility] has requested a helton to make care more simple. My concern is that she have frequent caregiver contact. She does not eat or drink independently, even when food and water are placed within her reach. She needs to be offered fluids whenever a caregiver encounters her. I think placing a helton will not only put her at risk of UTI/sepsis, but will discourage frequent caregiver contact. 10/22: [facility] assessment today 10/23/25: This patient remains medically clear for discharge.
--- NOTE | 2025-10-24 14:33 | PROVIDER PROGRESS NOTE ---
Subjective Prog Note Date Prog Note Date: 10/24/25 Subjective Pt reports feeling: No change Current Medications Current Medications Current Medications: Current Medications Generic Name Dose Route Start Last Admin Trade Name Falguni PRN Reason Stop Dose Admin Acetaminophen 650 mg 05/21/25 14:24 10/22/25 20:53 Acetaminophen 325 Mg Tablet PO 650 mg Q4HR PRN Administration Pain 1 to 4, or Fever Apixaban 2.5 mg 05/29/25 21:00 10/24/25 08:21 Apixaban 2.5 Mg Tablet PO 2.5 mg BID WEST Administration Chlorhexidine Gluconate 15 ml 10/03/25 13:00 10/24/25 08:36 Chlorhexidine Gluconate 15 Ml Udc PO Not Given QID WEST Clonidine HCl 1 patch 10/10/25 10:00 10/24/25 11:39 Clonidine 0.2 Mg Patch TOP 1 patch Q7D WEST Administration Cyclobenzaprine HCl 10 mg 09/16/25 21:00 10/23/25 20:41 Cyclobenzaprine 10 Mg Tablet PO 10 mg HS WEST Administration Cyclobenzaprine HCl 5 mg 09/16/25 11:14 10/21/25 08:39 Cyclobenzaprine 10 Mg Tablet PO 5 mg BID PRN Administration Spasms Diclofenac Sodium 2 gm 09/19/25 14:31 10/24/25 00:58 Diclofenac Sodium 1% Gel 50 Gm Tube TOP 2 gm QID PRN Administration Mild Pain (Level 1-3) Docusate Sodium 250 - 500 mg 07/02/25 10:35 09/14/25 08:31 Docusate Sodium 250 Mg Capsule PO 250 mg DAILY PRN Administration Constipation Mirtazapine 15 mg 09/29/25 21:00 10/23/25 20:41 Mirtazapine 15 Mg Tablet PO 15 mg QPM WEST Administration Multi-Ingredient Ointment 1 applic 10/10/25 14:38 10/13/25 09:17 Emollient Cream 57 Gm Tube TOP 1 applic BID PRN Administration dry skin Polyethylene Glycol 17 gm 07/02/25 10:34 10/23/25 08:43 Polyethylene Glycol 3350 17 Gm Packet PO 17 gm DAILY PRN Administration Constipation Multivit/Folic Acid/Iron 1 tab 05/25/25 08:00 10/24/25 08:21 Vitamin Tablet PO 1 tab DAILYWM WEST Administration Propranolol HCl 40 mg 10/21/25 09:00 10/24/25 08:21 Propranolol 40 Mg Tablet PO 40 mg BID WEST Administration Tamsulosin HCl 0.4 mg 08/10/25 09:00 10/24/25 08:21 Tamsulosin 0.4 Mg Capsule PO 0.4 mg DAILY WEST Administration Zinc Oxide 113 gm 06/28/25 12:00 10/24/25 02:30 Cod Liver Oil/Zinc Oxide 113 Gm Tube TOP 1 applic PRN PRN Administration Skin Care Objective Vital Signs/Intake & Output Reviewed Vital Signs: Yes Vital Signs: Vital Signs x48h Temp Pulse Resp BP Pulse Ox 10/24/25 07:55 97.9 F 95 18 121/83 96 Intake & Output: Intake & Output 10/21/25 10/22/25 10/23/25 10/24/25 23:59 23:59 23:59 23:59 Intake Total 700 / 700 940 / 940 600 / 600 630 / 630 Balance 700 / 700 940 / 940 600 / 600 630 / 630 Objective General Appearance: positive No acute distress and Alert Eyes Bilateral: positive Normal inspection ENT: positive Other (poor dentition) Neck: positive Nml inspection Respiratory: positive No respiratory distress Cardiovascular: positive Regular rate & rhythm Abdomen: positive No distention Skin: positive Color nml Extremities: positive Non-tender Lab Results 09/19/25 12:56 09/19/25 12:56 Sepsis Event Note (H) Evaluation Current Stage of Sepsis: Ruled out Assessment/Plan Problem List (1) Abnormal vital signs: Impression: Tachycardia and hypertension. Initially started on clonidine, now up to 0.2. Continuing this 10/12: Adding on propranolol 10 mg p.o. twice daily. 10/17: propranolol does not seem to effect her HR significantly, I am going to increase to 20mg BID, and then continue to titrate to effect. 10/18: up titrate tomorrow if still tachycardic 10/19: remains tachy, increase to 40mg BID 10/21: The 40mg is working well for her. no changes. (2) Dental infection: Impression: Recurrent. She was on clindamycin starting on 09/22/2025 for 20 doses, finished on 09/27. Now less than a week after completing this she has a pointing abscess in the gumline. Clindamycin was restarted. She finished an additional course. In the inpatient setting I am not sure there is much we can do about this. I have started chlorohexidine swabs to her mouth QID, after meals and at bedtime. She does not like this, but she is not able to swish and spit. will continue this indefinitely We have been discussing this case with a local OMFS. We have been informed that we do not have the correct equipment or set up. If this patient were discharged, he may be able to do something about this, but he is not able to address this in the inpatient setting Tooth #22 ( I think it was this one) broke. There does not appear to be a severe infection here. I am continuing with peridex swabs QID. (3) Polysubstance abuse: Impression: She has been in the hospital since 05/13/2025 UDS on presentation was positive for opiates, amphetamine, methamphetamine, cocaine She is out of the window for any acute withdrawal. She has not had any acute changes in her mental status for quite some time. (4) Altered mental status: Impression: Altered mentation likely secondary to polysubstance abuse UDS on presentation positive for opiates, amphetamine, methamphetamine, cocaine Patient was held in observation, and repeat CT and MRI were performed. MRI shows diffuse white matter hyperintense signal which may represent edema. Not the typical presentation of press Her altered mentation is not affected by her blood pressure, meaning it is not improved whenever her blood pressure is within normal limits Case discussed with neurology on 05/26, who recommended LP, but stated that this is likely sequela of hypoxic event from drug use. thiamine 500 mg IM 3 times daily started on 05/26,for 3 days, now on po thiamine daily Qualifiers: Altered mental status type: stupor Qualified Code(s): R40.1 - Stupor (5) Pubic bone fracture: Impression: X-ray hip on 05/25 shows moderately displaced right inferior pubic ramus fracture with extension in the medial acetabular column and suspicion for extension to the pelvic ring. Case was discussed with on-call orthopedist, who reports this is nonoperative. She is full weightbearing as tolerated but has not ambulated in many months. Currently not able to particpate with PT. She has been seen 1x for PT, no rehab potential. (6) Malnutrition: Impression: Severe protein calorie malnutrition given obvious muscle wasting, loss of subcutaneous fat, bedridden. She is eating less these days, has become more choosy with what she will eat. BMI increased from 14.9 to 17.6, currently down to 16.9, back up to 17.4, I think there is variation in bed weights. Qualifiers: Malnutrition type: unspecified type Qualified Code(s): E46 - Unspecified protein-calorie malnutrition (7) Effusion, right knee: Impression: not worse, voltaren gel PRN This patient's diagnosis and treatment plan was discussed this AM with attending physician as a part of multi disciplinary rounding meeting. non billable rounding today Dispo: Guardian appointed today [employer], Rosemary. She had a visit with a potential adult family home. She can likely go there once she has all legal paperwork in line. They will need one month of medications prescribed, this is reasonable. has requested a helton to make care more simple. My concern is that she have frequent caregiver contact. She does not eat or drink independently, even when food and water are placed within her reach. She needs to be offered fluids whenever a caregiver encounters her. I think placing a helton will not only put her at risk of UTI/sepsis, but will discourage frequent caregiver contact. 10/22: [facility] assessment today 10/24/25: This patient remains medically clear for discharge.
--- NOTE | 2025-10-25 12:26 | PROVIDER PROGRESS NOTE ---
Subjective Prog Note Date Prog Note Date: 10/25/25 Subjective Pt reports feeling: No change Current Medications Current Medications Current Medications: Current Medications Generic Name Dose Route Start Last Admin Trade Name Falguni PRN Reason Stop Dose Admin Acetaminophen 650 mg 05/21/25 14:24 10/24/25 21:35 Acetaminophen 325 Mg Tablet PO 650 mg Q4HR PRN Administration Pain 1 to 4, or Fever Apixaban 2.5 mg 05/29/25 21:00 10/25/25 08:44 Apixaban 2.5 Mg Tablet PO 2.5 mg BID WEST Administration Chlorhexidine Gluconate 15 ml 10/03/25 13:00 10/25/25 08:43 Chlorhexidine Gluconate 15 Ml Udc PO 15 ml QID WEST Administration Clonidine HCl 1 patch 10/10/25 10:00 10/24/25 11:39 Clonidine 0.2 Mg Patch TOP 1 patch Q7D WEST Administration Cyclobenzaprine HCl 10 mg 09/16/25 21:00 10/24/25 21:35 Cyclobenzaprine 10 Mg Tablet PO 10 mg HS WEST Administration Cyclobenzaprine HCl 5 mg 09/16/25 11:14 10/25/25 08:44 Cyclobenzaprine 10 Mg Tablet PO 5 mg BID PRN Administration Spasms Diclofenac Sodium 2 gm 09/19/25 14:31 10/25/25 08:44 Diclofenac Sodium 1% Gel 50 Gm Tube TOP 2 gm QID PRN Administration Mild Pain (Level 1-3) Docusate Sodium 250 - 500 mg 07/02/25 10:35 09/14/25 08:31 Docusate Sodium 250 Mg Capsule PO 250 mg DAILY PRN Administration Constipation Mirtazapine 15 mg 09/29/25 21:00 10/24/25 21:35 Mirtazapine 15 Mg Tablet PO 15 mg QPM WEST Administration Multi-Ingredient Ointment 1 applic 10/10/25 14:38 10/25/25 08:54 Emollient Cream 57 Gm Tube TOP 1 applic BID PRN Administration dry skin Polyethylene Glycol 17 gm 07/02/25 10:34 10/25/25 08:43 Polyethylene Glycol 3350 17 Gm Packet PO 17 gm DAILY PRN Administration Constipation Multivit/Folic Acid/Iron 1 tab 05/25/25 08:00 10/25/25 08:43 Vitamin Tablet PO 1 tab DAILYWM WEST Administration Propranolol HCl 40 mg 10/21/25 09:00 10/25/25 08:43 Propranolol 40 Mg Tablet PO 40 mg BID WEST Administration Tamsulosin HCl 0.4 mg 08/10/25 09:00 10/25/25 08:44 Tamsulosin 0.4 Mg Capsule PO 0.4 mg DAILY WEST Administration Zinc Oxide 113 gm 06/28/25 12:00 10/25/25 08:45 Cod Liver Oil/Zinc Oxide 113 Gm Tube TOP 1 applic PRN PRN Administration Skin Care Objective Vital Signs/Intake & Output Reviewed Vital Signs: Yes Vital Signs: Vital Signs x48h Temp Pulse Resp BP Pulse Ox 10/25/25 07:42 97.7 F 86 18 135/76 H 96 Intake & Output: Intake & Output 10/22/25 10/23/25 10/24/25 10/25/25 23:59 23:59 23:59 23:59 Intake Total 940 / 940 600 / 600 1350 / 1350 440 / 440 Balance 940 / 940 600 / 600 1350 / 1350 440 / 440 Objective General Appearance: positive No acute distress and Alert Eyes Bilateral: positive Normal inspection ENT: positive Other (poor dentition) Neck: positive Nml inspection Respiratory: positive No respiratory distress Cardiovascular: positive Regular rate & rhythm Abdomen: positive No distention Skin: positive Color nml Extremities: positive Non-tender Lab Results 09/19/25 12:56 09/19/25 12:56 Sepsis Event Note (H) Evaluation Current Stage of Sepsis: Ruled out Assessment/Plan Problem List (1) Abnormal vital signs: Impression: Tachycardia and hypertension. Initially started on clonidine, now up to 0.2. Continuing this 10/12: Adding on propranolol 10 mg p.o. twice daily. 10/17: propranolol does not seem to effect her HR significantly, I am going to increase to 20mg BID, and then continue to titrate to effect. 10/18: up titrate tomorrow if still tachycardic 10/19: remains tachy, increase to 40mg BID 10/21: The 40mg is working well for her. no changes. (2) Dental infection: Impression: Recurrent. She was on clindamycin starting on 09/22/2025 for 20 doses, finished on 09/27. Now less than a week after completing this she has a pointing abscess in the gumline. Clindamycin was restarted. She finished an additional course. In the inpatient setting I am not sure there is much we can do about this. I have started chlorohexidine swabs to her mouth QID, after meals and at bedtime. She does not like this, but she is not able to swish and spit. will continue this indefinitely We have been discussing this case with a local [facility]. We have been informed that we do not have the correct equipment or set up. If this patient were discharged, he may be able to do something about this, but he is not able to address this in the inpatient setting Tooth #22 ( I think it was this one) broke. There does not appear to be a severe infection here. I am continuing with peridex swabs QID. (3) Polysubstance abuse: Impression: She has been in the hospital since 05/13/2025 UDS on presentation was positive for opiates, amphetamine, methamphetamine, cocaine She is out of the window for any acute withdrawal. She has not had any acute changes in her mental status for quite some time. (4) Altered mental status: Impression: Altered mentation likely secondary to polysubstance abuse UDS on presentation positive for opiates, amphetamine, methamphetamine, cocaine Patient was held in observation, and repeat CT and MRI were performed. MRI shows diffuse white matter hyperintense signal which may represent edema. Not the typical presentation of press Her altered mentation is not affected by her blood pressure, meaning it is not improved whenever her blood pressure is within normal limits Case discussed with neurology on 05/26, who recommended LP, but stated that this is likely sequela of hypoxic event from drug use. thiamine 500 mg IM 3 times daily started on 05/26,for 3 days, now on po thiamine daily Qualifiers: Altered mental status type: stupor Qualified Code(s): R40.1 - Stupor (5) Pubic bone fracture: Impression: X-ray hip on 05/25 shows moderately displaced right inferior pubic ramus fracture with extension in the medial acetabular column and suspicion for extension to the pelvic ring. Case was discussed with on-call orthopedist, who reports this is nonoperative. She is full weightbearing as tolerated but has not ambulated in many months. Currently not able to particpate with PT. She has been seen 1x for PT, no rehab potential. (6) Malnutrition: Impression: Severe protein calorie malnutrition given obvious muscle wasting, loss of subcutaneous fat, bedridden. She is eating less these days, has become more choosy with what she will eat. BMI increased from 14.9 to 17.6, currently down to 16.9, back up to 17.4, I think there is variation in bed weights. Qualifiers: Malnutrition type: unspecified type Qualified Code(s): E46 - Unspecified protein-calorie malnutrition (7) Effusion, right knee: Impression: not worse, voltaren gel PRN This patient's diagnosis and treatment plan was discussed this AM with attending physician as a part of multi disciplinary rounding meeting. non billable rounding today Dispo: Guardian appointed today [employer], Rosemary. She had a visit with a potential adult family home. She can likely go there once she has all legal paperwork in line. They will need one month of medications prescribed, this is reasonable. [facility] has requested a helton to make care more simple. My concern is that she have frequent caregiver contact. She does not eat or drink independently, even when food and water are placed within her reach. She needs to be offered fluids whenever a caregiver encounters her. I think placing a helton will not only put her at risk of UTI/sepsis, but will discourage frequent caregiver contact. 10/22: [facility] assessment today 10/25/25: This patient remains medically clear for discharge.
--- NOTE | 2025-10-26 14:29 | PROVIDER PROGRESS NOTE ---
Subjective Prog Note Date Prog Note Date: 10/26/25 Subjective Pt reports feeling: No change Current Medications Current Medications Current Medications: Current Medications Generic Name Dose Route Start Last Admin Trade Name Falguni PRN Reason Stop Dose Admin Acetaminophen 650 mg 05/21/25 14:24 10/25/25 21:24 Acetaminophen 325 Mg Tablet PO 650 mg Q4HR PRN Administration Pain 1 to 4, or Fever Apixaban 2.5 mg 05/29/25 21:00 10/26/25 08:39 Apixaban 2.5 Mg Tablet PO 2.5 mg BID WEST Administration Chlorhexidine Gluconate 15 ml 10/03/25 13:00 10/26/25 12:33 Chlorhexidine Gluconate 15 Ml Udc PO 15 ml QID WEST Administration Clonidine HCl 1 patch 10/10/25 10:00 10/24/25 11:39 Clonidine 0.2 Mg Patch TOP 1 patch Q7D WEST Administration Cyclobenzaprine HCl 10 mg 09/16/25 21:00 10/25/25 21:24 Cyclobenzaprine 10 Mg Tablet PO 10 mg HS WEST Administration Cyclobenzaprine HCl 5 mg 09/16/25 11:14 10/25/25 08:44 Cyclobenzaprine 10 Mg Tablet PO 5 mg BID PRN Administration Spasms Diclofenac Sodium 2 gm 09/19/25 14:31 10/25/25 21:25 Diclofenac Sodium 1% Gel 50 Gm Tube TOP 2 gm QID PRN Administration Mild Pain (Level 1-3) Docusate Sodium 250 - 500 mg 07/02/25 10:35 09/14/25 08:31 Docusate Sodium 250 Mg Capsule PO 250 mg DAILY PRN Administration Constipation Mirtazapine 15 mg 09/29/25 21:00 10/25/25 21:24 Mirtazapine 15 Mg Tablet PO 15 mg QPM WEST Administration Multi-Ingredient Ointment 1 applic 10/10/25 14:38 10/26/25 09:12 Emollient Cream 57 Gm Tube TOP 1 applic BID PRN Administration dry skin Polyethylene Glycol 17 gm 07/02/25 10:34 10/25/25 08:43 Polyethylene Glycol 3350 17 Gm Packet PO 17 gm DAILY PRN Administration Constipation Multivit/Folic Acid/Iron 1 tab 05/25/25 08:00 10/26/25 08:39 Vitamin Tablet PO 1 tab DAILYWM WEST Administration Propranolol HCl 40 mg 10/21/25 09:00 10/26/25 08:39 Propranolol 40 Mg Tablet PO 40 mg BID WEST Administration Tamsulosin HCl 0.4 mg 08/10/25 09:00 10/26/25 08:39 Tamsulosin 0.4 Mg Capsule PO 0.4 mg DAILY WEST Administration Zinc Oxide 113 gm 06/28/25 12:00 10/25/25 08:45 Cod Liver Oil/Zinc Oxide 113 Gm Tube TOP 1 applic PRN PRN Administration Skin Care Objective Vital Signs/Intake & Output Reviewed Vital Signs: Yes Vital Signs: Vital Signs x48h Temp Pulse Resp BP Pulse Ox 10/26/25 09:00 97.2 F L 88 16 131/80 H 96 Intake & Output: Intake & Output 10/23/25 10/24/25 10/25/25 10/26/25 23:59 23:59 23:59 23:59 Intake Total 600 / 600 1350 / 1350 1160 / 1160 480 / 480 Balance 600 / 600 1350 / 1350 1160 / 1160 480 / 480 Objective General Appearance: positive No acute distress and Alert Eyes Bilateral: positive Normal inspection ENT: positive Other (poor dentition) Neck: positive Nml inspection Respiratory: positive No respiratory distress Cardiovascular: positive Regular rate & rhythm Abdomen: positive No distention Skin: positive Color nml Extremities: positive Non-tender Lab Results 09/19/25 12:56 09/19/25 12:56 Sepsis Event Note (H) Evaluation Current Stage of Sepsis: Ruled out Assessment/Plan Problem List (1) Abnormal vital signs: Impression: Tachycardia and hypertension. Initially started on clonidine, now up to 0.2. Continuing this 10/12: Adding on propranolol 10 mg p.o. twice daily. 10/17: propranolol does not seem to effect her HR significantly, I am going to increase to 20mg BID, and then continue to titrate to effect. 10/18: up titrate tomorrow if still tachycardic 10/19: remains tachy, increase to 40mg BID 10/21: The 40mg is working well for her. no changes. (2) Dental infection: Impression: Recurrent. She was on clindamycin starting on 09/22/2025 for 20 doses, finished on 09/27. Now less than a week after completing this she has a pointing abscess in the gumline. Clindamycin was restarted. She finished an additional course. In the inpatient setting I am not sure there is much we can do about this. I have started chlorohexidine swabs to her mouth QID, after meals and at bedtime. She does not like this, but she is not able to swish and spit. will continue this indefinitely We have been discussing this case with a local [facility]. We have been informed that we do not have the correct equipment or set up. If this patient were discharged, he may be able to do something about this, but he is not able to address this in the inpatient setting Tooth #22 ( I think it was this one) broke. There does not appear to be a severe infection here. I am continuing with peridex swabs QID. (3) Polysubstance abuse: Impression: She has been in the hospital since 05/13/2025 UDS on presentation was positive for opiates, amphetamine, methamphetamine, cocaine She is out of the window for any acute withdrawal. She has not had any acute changes in her mental status for quite some time. (4) Altered mental status: Impression: Altered mentation likely secondary to polysubstance abuse UDS on presentation positive for opiates, amphetamine, methamphetamine, cocaine Patient was held in observation, and repeat CT and MRI were performed. MRI shows diffuse white matter hyperintense signal which may represent edema. Not the typical presentation of press Her altered mentation is not affected by her blood pressure, meaning it is not improved whenever her blood pressure is within normal limits Case discussed with neurology on 05/26, who recommended LP, but stated that this is likely sequela of hypoxic event from drug use. thiamine 500 mg IM 3 times daily started on 05/26,for 3 days, now on po thiamine daily Qualifiers: Altered mental status type: stupor Qualified Code(s): R40.1 - Stupor (5) Pubic bone fracture: Impression: X-ray hip on 05/25 shows moderately displaced right inferior pubic ramus fracture with extension in the medial acetabular column and suspicion for extension to the pelvic ring. Case was discussed with on-call orthopedist, who reports this is nonoperative. She is full weightbearing as tolerated but has not ambulated in many months. Currently not able to particpate with PT. She has been seen 1x for PT, no rehab potential. (6) Malnutrition: Impression: Severe protein calorie malnutrition given obvious muscle wasting, loss of subcutaneous fat, bedridden. She is eating less these days, has become more choosy with what she will eat. BMI increased from 14.9 to 17.6, currently down to 16.9, back up to 17.4, I think there is variation in bed weights. Qualifiers: Malnutrition type: unspecified type Qualified Code(s): E46 - Unspecified protein-calorie malnutrition (7) Effusion, right knee: Impression: not worse, voltaren gel PRN This patient's diagnosis and treatment plan was discussed this AM with attending physician as a part of multi disciplinary rounding meeting. non billable rounding today Dispo: Guardian appointed today [employer], Rosemary. She had a visit with a potential adult family home. She can likely go there once she has all legal paperwork in line. They will need one month of medications prescribed, this is reasonable. [facility] has requested a helton to make care more simple. My concern is that she have frequent caregiver contact. She does not eat or drink independently, even when food and water are placed within her reach. She needs to be offered fluids whenever a caregiver encounters her. I think placing a helton will not only put her at risk of UTI/sepsis, but will discourage frequent caregiver contact. 10/22: [facility] assessment today 10/26/25: This patient remains medically clear for discharge.
--- NOTE | 2025-10-27 11:36 | Discharge Summary ---
Discharge Summary Admit Date: 05/17/25 Discharge Date: 10/27/25 Discharging Provider: Jair Montano Primary Care Provider: No PCP Code Status: Attempt Resuscitation DIAGNOSES Discharge Diagnoses with Status of Each Condition: Abnormal vital signspatient was noted to be hypertensive and tachycardic. Workup revealed a sinus tachycardia with no clear cause. Patient was started on clonidine patches and propranolol p.o. with good effect. BP and heart rate now stable Dental infectionpatient will need outpatient follow-up with dentistry Polysubstance abuseUDS on presentation positive for opiates, amphetamine, methamphetamine, cocaineshe is well out of the window for withdrawal, but this is because anoxic brain injury Altered mental statussecondary to above Pubic bone fracturediscussed case with orthopedics, recommended full weightbearing with walker. Continue physical therapy Severe protein calorie malnutritionstarted on mirtazapine, supplemented with Ensure Effusion, right kneesupportive care HPI History of Present Illness: 59-year-old female who presented to the ED on 05/13/2025 via EMS with complaints of altered mental status. Apparently lives in an RV. EMS was called by acquaintances of the patient and found her poorly responsive in an RV which was very poorly kept. The patient was covered in urine and stool. Patient has previous ED visits all related to substance use. She has been in the ED now for 4-1/2 days. She has been seen by social work, she is unable to care for herself and is in need of placement. Review of the chart reveals no medical problems aside from her polysubstance abuse HOSPITAL COURSE Hospital Course: Patient was placed in extended stay status, then observation for alteration in mental status and transferred to inpatient care. MRI was performed which showed mild diffuse white matter hyperintense signal representing edema, likely toxic metabolic etiology. I discussed her case with neurology at an outside facility, who suggested that this is likely sequela of hypoxic event from drug use. Patient's family was unreliable, and has since disappeared. Patient was held in the hospital while he went through the process of obtaining a court appointed guardian. She also had dental infection while here, and completed 2 different courses of antibiotics. She will need outpatient follow-up with dentistry for this. Patient is being discharged to adult family home today ALLERGIES Allergies Allergy/AdvReac Type Severity Reaction Status Date / Time Penicillins Allergy Anaphylaxis Verified 04/17/25 15:38 MEDICATIONS Ambulatory Orders Medication Instructions Recorded Confirmed chlorhexidine gluconate 0.12 % 15 ml PO QID 30 days #1 ,500 mL 10/27/25 mouthwash clonidine 0.2 mg/24 hr weekly 1 patch topical Q7D 30 d ays #4 ea 10/27/25 transdermal patch cyclobenzaprine 10 mg tablet 10 mg PO HS 30 days #30 t abs 10/27/25 mirtazapine 15 mg tablet 15 mg PO QPM 30 days #30 tab s 10/27/25 vit,calcium 27-ferrous 1 tab PO DAILYWM 30 da ys #30 tabs 10/27/25 fum 60 mg iron-folic acid 1 mg tablet (Trinatal Rx 1) propranolol 40 mg tablet 40 mg PO BID 30 days #60 tab s 10/27/25 tamsulosin 0.4 mg capsule 0.4 mg PO DAILY 30 days #30 caps 10/27/25 PHYSICAL EXAM AT DISCHARGE Vital Signs: Vital Signs x48h Temp Pulse Resp BP Pulse Ox 10/27/25 16:30 97.9 F 75 18 128/71 95 Physical Exam Other/Comments: General Appearance: positive No acute distress and Alert Eyes Bilateral: positive Normal inspection ENT: positive Other (poor dentition) Neck: positive Nml inspection Respiratory: positive No respiratory distress Cardiovascular: positive Regular rate & rhythm Abdomen: positive No distention Skin: positive Color nml Extremities: positive Non-tender LABS 09/19/25 12:56 09/19/25 12:56 SEPSIS Current Stage of Sepsis: Ruled out FOLLOW UP Follow Up: With PCP TIME SPENT Time Spent in Discharge (Minutes): 39 Discharge Plan Discharge Patient Disposition: [facility], Self Care Prescriptions: New chlorhexidine gluconate 0.12 % Mouthwash 15 ml PO QID 30 Days Qty: 1500 0RF clonidine 0.2 mg/24 hr Patch Weekly 1 patch topical Q7D 30 Days Qty: 4 0RF cyclobenzaprine 10 mg Tablet 10 mg PO HS 30 Days Qty: 30 0RF mirtazapine 15 mg Tablet 15 mg PO QPM 30 Days Qty: 30 0RF Trinatal Rx 1 60 mg iron-1 mg Tablet 1 tab PO DAILYWM 30 Days Qty: 30 0RF propranolol 40 mg Tablet 40 mg PO BID 30 Days Qty: 60 0RF tamsulosin 0.4 mg Capsule 0.4 mg PO DAILY 30 Days Qty: 30 0RF Activity Restrictions: No Restrictions Diet: Regular Health Concerns: You came into the hospital for acute alteration of mental status. You were worked up for this, and MRI showed concern for an anoxic brain injury. You had a extended stay in the hospital while the courts determine who would be your surrogate decision maker. Today, you are discharging to a facility. Please take meds as prescribed. Please attempt to eat a robust and healthy diet Print Language: Maltese Patient Instructions: Hypoxic or Anoxic Brain Injury Stand Alone Forms: SNF Discharge Report called to and time (if no answer, doc. time of each call attempted): R iedet with [facility] @ 1700 Vitals documented within 30 minutes of discharge?: Yes
[2025-10-27 16:52] VITALS: BP 128/71; TEMP 97.9; O2SAT 95
== END 2025-10-27 16:55 | disposition home or self-care (01) | DRG 91 ==
LOC: MS2
PROVIDERS: ADMIT Nurse Practitioner Acute Care; ATTEND Nurse Practitioner Acute Care